=== PATIENT | female | born 1965 | race Caucasian/White ===

== ENCOUNTER → 2018-05-01 12:56 | Outpatient (CLI) | payer OTHER, SELFPAY | PROVIDERS: PCP Internal Medicine; Visit Provider Student in an Organized Health Care Education/Training Program | DX: Z01.818 Encounter for other preprocedural examination (principal) ==

== ENCOUNTER 2018-05-09 06:25 | Day surgery (SDC) | payer OTHER, SELFPAY ==
[2018-05-01 13:06] VITALS: BP 112/78; PULSE 78; RESP 17; TEMP 36.6; O2SAT 98
[2018-05-08 08:41] VITALS: BP 112/78; PULSE 78; RESP 17; TEMP 36.6; O2SAT 98
[2018-05-09 06:31] VITALS: BP 122/80; PULSE 85; RESP 16; TEMP 36.1; O2SAT 97
[2018-05-09] MEDS: Lactated Ringers 1,000 ML 80 ML IV (06:50)
--- NOTE | 2018-05-09 07:05 | DI.RAD_ITS ---
SYMPTOM/DIAGNOSIS: ANKLE PAIN C-ARM RIGHT ANKLE: Fluoroscopy Time: 30 seconds Comparison is made with 02/20/18. Hard copy image now shows a metallic anchor in the medial aspect of the navicular. Please see procedure note for details.
--- NOTE | 2018-05-09 07:24 | W.PM.DSUDISC ---
Discharge Plan Discharge Details Reason For Visit: (R) PAINFUL LEG TENDON Attending Provider: Lan Solares Primary Care Provider: Avery Caballero Disposition Patient Disposition: HOME Condition: Good Home Meds and New Rx's Prescriptions: New tramadol 50 mg Tablet 50 mg PO Q4H PRN PRNQty: 15 RF: 0 aspirin [Aspir-81] 81 mg tablet,delayed release (DR/EC) 81 mg PO BID Qty: 80 RF: 0 acetaminophen 500 mg tablet 1,000 mg PO Q8H PRN PRN (Reason: pain) Qty: 100 RF: 0 enoxaparin 40 mg/0.4 mL syringe 40 mg SC DAILY Qty: 2 RF: 0 Continue fluticasone-salmeterol [Advair Diskus] 1 EACH blister with device 1 puff Inhalation BID RF: 0 vitamin B complex [B Complex] 1 EACH tablet extended release 1 ea PO DAILY RF: 0 montelukast [Singulair] 10 MG tablet 10 mg PO DAILY RF: 0 cyanocobalamin (vitamin B-12) 250 MCG tablet PO DAILY RF: 0 fluticasone [Flonase Allergy Relief] 9.9 ML spray,suspension 9.9 ml NS BID RF: 0 Wheelchair 1 unit Not Applicable DAILY Qty: 1 RF: 0 Discontinued Custom Molded AFO Qty: 1 RF: 0 No Action wheelchair 1 EACH device 1 ea Miscellaneous Qty: 1 RF: 0 Discharge Instructions Additional Instructions: Activity: You should stay in the splint for the first 2 weeks. You may remove this while you are in [place], leaving only the steri-strips in place. After the splint is removed you may place the walker boot. It should be worn when you are up and mobilizing. You may take it off when you are not moving. You may gently move the foot and ankle but no resistance or weight-bearing until your follow-up. Dressings: You should keep the splint on for the first 2 weeks. When you remove this, leave the steri-strips in place. You may get the wound wet after 2 weeks. Medications: - You should take Tylenol for baseline pain control. You may also add Ibuprofen 400mg every 8 hours as needed to assist in pain control. - You have been prescribed Tramadol for breakthrough pain. - You have also been prescribed Lovenox for DVT prevention when flying. Take the morning of your flight. You should otherwise take one Baby Aspirin 81mg twice a day for blood clot prevention. 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
[2018-05-09] MEDS: Bupivacaine 0.25% Pres-Free 30 ML VIAL (08:56)
[2018-05-09] MEDS: Bupivacaine LIPOSOME/PF 133 MG/10 ML VIAL IJ (08:57)
[2018-05-09 09:45] VITALS: BP 133/79; PULSE 82; RESP 16; TEMP 36.4; O2SAT 98
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
== END 2018-05-09 10:45 | disposition home or self-care (01) ==
PROVIDERS: PCP Internal Medicine; Visit Provider Student in an Organized Health Care Education/Training Program
PROC: (CPT 28238; principal; 2018-05-09 07:30)
DX: Q74.2 Other congenital malformations of lower limb(s), including pelvic girdle (principal); M79.4 Hypertrophy of (infrapatellar) fat pad; M76.821 Posterior tibial tendinitis, right leg
CPT/HCPCS: 28238; 76000; C1713; 73600; J0131; J0690; J1100; J2405; L4361

== ENCOUNTER 2018-06-28 07:39 | Outpatient (CLI) | payer OTHER, SELFPAY ==
[2018-06-28 08:34] LABS: Cholesterol 198 mg/dL (50-200); HDL Cholesterol 72 mg/dL (40-60); LDL CHOLESTEROL 109 mg/dL (<100); Triglyceride 102 mg/dL (30-150)
[2018-07-01 12:18] LABS: Hepatitis C Ab w Rflx HCV PCR Negative (NEGAT)
== END 2018-06-28 07:59 ==
PROVIDERS: PCP Internal Medicine; Visit Provider Internal Medicine
DX: Z11.59 Encounter for screening for other viral diseases (principal); E66.9 Obesity, unspecified
CPT/HCPCS: 36415; 80061; 83721; 86803

== ENCOUNTER 2018-08-02 09:16 | Outpatient (CLI) | payer OTHER, SELFPAY ==
[2018-08-02 09:55] LABS: HCT 41.8 % (36.0-46.0); HGB 13.7 g/dL (12.0-15.5); Mean Corp. HGB Concentration 32.8 g/dL (32.0-36.0); Mean Corpuscular Hemoglobin 28.7 pg (27.0-33.0); Mean Corpuscular Volume 87.4 fL (80-95); Platelet Count 188 x1000/uL (130-400); RBC 4.78 m/cumm (4.00-5.20); RBC Distribution Width 13.9 % (11.7-14.6); White Blood Cell Count 5.49 k/cumm (4.4-10.8)
[2018-08-02 11:09] LABS: Anion Gap 6.8 mmol/L (3-11); BUN 16 mg/dL (7-18); CO2 27.2 mmol/L (21.0-32.0); CREATININE 0.64 mg/dL (0.55-1.02); Calcium 9.1 mg/dL (8.5-10.1); Chloride 105 mmol/L (98-107); Glucose 90 mg/dL (70-100); Potassium 4.2 mmol/L (3.5-5.1); Sodium 139 mmol/L (136-145)
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
== END 2018-08-02 09:36 ==
PROVIDERS: PCP Internal Medicine; Visit Provider Student in an Organized Health Care Education/Training Program
DX: M25.562 Pain in left knee (principal); M17.12 Unilateral primary osteoarthritis, left knee; Z01.818 Encounter for other preprocedural examination
CPT/HCPCS: 36415; 80048; 85027; NC

== ENCOUNTER 2018-08-02 10:26 | Outpatient (CLI) | payer OTHER, SELFPAY ==
--- NOTE | 2018-08-02 10:17 | DI.RAD_ITS ---
SYMPTOM/DIAGNOSIS: DJD LT KNEE BILATERAL LOWER EXTREMITIES: AP views of the lower extremities were obtained for leg length determination. Note is made of degenerative change involving the medial tibiofemoral joint on the left.
== END 2018-08-02 10:46 ==
PROVIDERS: PCP Internal Medicine; Visit Provider Physician Assistant
DX: M17.12 Unilateral primary osteoarthritis, left knee (principal)
CPT/HCPCS: 77073

== ENCOUNTER 2018-08-08 05:58 | Inpatient (IN) | payer OTHER, SELFPAY ==
[2018-08-08] VITALS (14 sets, daily range): BP systolic 96–155; BP diastolic 62–80; PULSE 66–87; RESP 12–20; TEMP 35.8–37.6; O2SAT 96–100
[2018-08-08] MEDS: Lactated Ringers 1,000 ML 80 ML IV ×4 (06:20→23:30)
[2018-08-08] MEDS: Celecoxib 200 MG CAP 400 MG PO (06:34)
[2018-08-08] MEDS: Gabapentin 300 MG CAP PO ×2 (06:34→21:27)
[2018-08-08] MEDS: Acetaminophen 500 MG TAB 1000 MG PO ×3 (06:34→20:32)
[2018-08-08] MEDS: Bupivacaine 0.5% Pres-Free 30 ML VIAL (07:20)
[2018-08-08] MEDS: Bupivacaine LIPOSOME/PF 133 MG/10 ML VIAL IJ ×2 (07:20→09:11)
[2018-08-08] MEDS: Bupivacaine 0.25% Pres-Free 30 ML VIAL (09:11)
[2018-08-08] MEDS: Ketorolac 30 MG/ML VIAL (09:11)
[2018-08-08] MEDS: Normal Saline 20 ML VIAL (09:11)
--- NOTE | 2018-08-08 09:52 | ROE_ITS ---
Date of service: 08/08/18 Time of Service: 09:49 Operative Note DATE OF PROCEDURE: 08/08/18 PRE-OP DIAGNOSIS: Left knee osteoarthritis POST-OP DIAGNOSIS: same PROCEDURE: Left Total Knee Replacement SURGEON: Lan Solares BUSINESS SERVICES SALES AGENT: Akua Valle ANESTHESIA: regional and spinal ESTIMATED BLOOD LOSS: 500 PATHOLOGY: none sent TOURNIQUET TIME: 32 COMPLICATIONS: None Patient was transported to: PACU Patient's condition: stable Implants: 1. Depuy Attune Posterior Stabilized Femoral Component, Size 4 narrow 2. Depuy Attune Fixed Platform Tibial Component, Size 2 3. Depuy Attune 4 x 6 mm fixed, Stabilized Poly 4. Depuy Attune Patellar Component, Size 32 mm Indications: I have seen Faith in clinic for symptoms of left knee arthritis, confirmed with radiographic findings. Faith has exhausted nonoperative methods and was having significant limitations in daily function and desired better function and less pain. I discussed the technical details of a knee replacement. I explained the risks of the procedure to include, but not limited to, bleeding, infection, pain, stiffness, fracture, damage to nerves and vessels, damage to muscles and tendons, loosening, need for repeat procedure , blood clot and cardiopulmonary demise. Despite these risks, Faith elected to proceed. Findings: There was significant signs of arthritis primarily involving the medial compartment of the knee, specifically the tibia. There are also focal arthritic changes along the median ridge of the patella. Procedure Description: Faith was greeted in the preoperative holding area where the correct side was identified and marked. The consent was reviewed with the patient and signed. The history and physical was updated. All questions were answered. Preoperative mediacations were administered: Acetaminophen 1000mg, Celebrex 400mg, Gabapentin 300mg, and Oxycontin 10mg. An adductor canal block was then administered by the anesthesia team in the PACU. Faith was taken back to the operating room. A spinal anesthestic was then administered. The patient was placed into the supine position on the operating room table. A nonsterile tourniquet was placed high onto the leg but only used for cementing. Posts were placed for positioning during the procedure. All bony prominences were well padded. Prophylactic antibiotics in the form of cefazolin were administered. 1g of Tranxemic Acid was given intravenously within 30 minutes of incision. The left leg was then prepped with Chloraprep and draped in a standard fashion with impervious stockinette and extremity drape with Iodine impregnated skin protection. A timeout to confirm correct identity, side and site, procedure, allergies, anesthesia, and medical concerns was performed. With the knee in some flexion, a midline incision was made overlying the knee. Full thickness skin flaps were raised once the extensor mechanism was encountered. These were raised medially and laterally. Any bleeding was controlled with electrocautery. Once the extensor mechanism was fully exposed, a medial parapatellar arthrotomy was performed in a flexed position. All bleeding from the arthrotomy and the geniculate arteries was coagulated. A medial subperiosteal peel was performed with electrocautery to the midcoronal plane. The fat pad was removed while keeping the patellar tendon protected. The anterior distal femur synovium was removed for later visualization. The ACL and PCL were resected and the anterior horn of the lateral meniscus was transected. The knee was then flexed with the patella everted. Large osteophytes from the tibia were removed. Large osteophytes from the femur were removed. Using a step drill, and based on preoperative templating, the femoral canal was entered. This was done with a step drill without any difficulty. The intramedullary distal femoral cut guide was inserted, set to a 5 degree valgus cut and 9mm cut thickness. The distal femoral cut guide was then held in position and pinned. With the soft tissues protected, the distal cut was performed. This was passed over a few times to ensure a planar cut. I then turned attention to the tibia. The extramedullary guide was placed onto the leg. The distal aspect was slid medial to adjust for position of center of ankle and stay in line with shaft of the tibia. Approximately 3-5 degrees of posterior slope was kept in the proximal cutting guide. The center of the guide was aligned with the PCL. The stylus was used to assess cut thickness. The medial side, most involved side, was set for a 4mm cut. This was then held in position and pinned into place with 2 additional pins and a cross pin for stability. The medial and lateral collateral ligaments were protected and the cut was performed. With this completed, it was assessed and noted to be of appropriate dimensions. The guide was removed. A spacer block was inserted and the knee was brought into extension. The 6mm spacer block provided full extension, without hyperextension and with stability of both the medial and lateral collateral ligaments was assessed. The pins from the femur and the tibia were then removed. The distal femur was then sized. The anterior stylus was placed onto the lateral ridge of the anterior femur. This indicated a size 4 narrow femur. The external rotation of the guide was adjusted to 5 degrees to match the epicondylar axis, perpendicular to Gray?s line. The 4-in-1 cutting guide was the placed. The posterior medial femur cut was evaluated and appeared of good thickness. The spacer block was inserted underneath the cutting guide and stability was confirmed in 90 degrees of flexion. An jennifer wing was used to confirm appropriate position of the anterior cut to avoid notching. This cutting guide was ensured to be flush on the cut surface and then pinned into place with headed pins. While protecting the soft tissues, quad tendon, and collateral ligaments, the anterior and posterior cuts were performed with a saw. The central two pins were removed and the posterior and anterior chamfers were cut next. The notch-cutting guide was placed. This was pinned to lateralize the femoral component as much as possible while keeping it flush on the cut surface. This was then pinned into position. A reciprocating saw was used to make the notch cut. A rasp smoothed the cut surfaces. A trial posterior stabilized femoral component was then inserted, impacted down to the cut surfaces, and the lug holes were drilled. A provisional trial tibial component was placed and the knee was brought through range of motion. There was noted to be excellent extension and flexion. There was no significant instability. The patella was tracking without thumbs. The tibial cut surface was fully exposed. The medial and lateral menisci were removed. The tibia was then sized as a 2. The tibia had been previously marked during trialing to correspond to the center of the tibial component to help with rotation. The trial was aligned to this akua, approximately rotated to the medial 1/3rd of the tibial tubercle. The trial was pinned into place. The tibia was prepared with a reamer and a keel punch. The knee was then brought into extension and the patella was measured as 24 mm. Using the patellar clamp and cut guide, this was resected to a flat surface with at least 13mm of thickness remaining. The size 32 mm patella fit the best. This was oriented and then clamped into position. The lugs were drilled. The trial components were removed. The final components, except for the polyethylene were opened on the back table. The periosteal and capsular tissues , especially posteriorly, around the knee were then systematically injected with a periarticular cocktail consisting of 50cc 0.25% Marcaine, 30mg Ketorolac , 20cc of Exparal and 50cc of injectable saline. The tourniquet was then inflated to 275mmHg. The knee was thoroughly irrigated with a pulse lavage and dried. On the back table, with the implants opened, the cement was mixed. 2 batches of antibiotic laden cement were prepared with vacuum assistance. After the cement was ready a small amount was placed on to the back side of the tibial component at the keel. A small amount was placed onto the posterior flange of the femur. Cement was manual pressurized and impregnated into the cut surface of the tibia. The tibial component was then inserted into the cut surface and impacted into position. Excess cement was removed and the component was reimpacted. Again, excess cement was removed and our attention was then turned to the femur. The femoral cut surface was once again dried and cement was manually impacted into the cut surface. The femoral component was lined with the lug holes and impacted. Excess cement was removed. It was ensured to be down against the cut surface. The trial polyethylene was then inserted and the leg was brought out into full extension for the duration of the cement curing process, approximately 15min. Cement was lastly manually impacted into the cut surface of the patella and the patellar button was clamped into position and held. During this process attention was turned to the gutters of the knee and for all interfaces for any excess cement. After the cement had finally cured, approximately 15min, the clamp was removed from the patella and the knee was taken through range of motion. A size 6mm polyethylene component provided the best range of motion and stability with less than 2mm gapping with medial and lateral stress and full extension without significant hyperextension. The patella was tracking with a no-thumbs technique. The trial poly was removed and once again the knee was checked for any loose, excess, or errant cement. The poly component was then inserted and impacted into position after cleaning and drying the tibial tray. The capsule was then reapproximated with a No. 1 Vicryl at multiple locations. The capsule was finally closed with a No. 2 Stratafix, barbed suture. The tourniquet was then released and the arthrotomy appeared watertight without significant bleeding. The second dosing of 1g TXA was started. Deep tissues were then reapproximated with 0 Vicryl and 2-0 Vicryl. The skin was closed with a running 3-0 Monocryl in a subcuticular fashion. This was reinforced with skin glue. A Mepilex silver dressing was applied along with a foot-to- thigh REBECCA wrap. A CryoCuff was applied. Faith was transferred to the hospital bed without difficulty an suffering no apparent complication. Faith has a good prognosis. Physical therapy will start today and without restrictions, weight-bearing as tolerated. Aspirin 81mg BID will be used for DVT prophylaxis.
[2018-08-08] MEDS: Normal Saline Flush 10 ML SYR IV ×2 (12:08→17:17)
--- NOTE | 2018-08-08 13:40 | PT.INIE ---
Date of service: 08/08/18 Time of Service: 13:33 PT Notes Inpatient Physical Therapy Evaluation Date: 08/08/2018 Referring Doctor: Lan Solares PT Orders: PT CONSULT: S/P L TKA Precautions: WBAT LLE Patient Profile/Admitting Diagnosis: Patient is a 53-year-old female s/p left total knee arthroplasty by Dr. Solares 08/08/2018 PMHX: Asthma, arthritis left knee, navicular excision right foot, rotator cuff tendinitis, biceps tendinitis on the left, benign positional vertigo, tonsillectomy, adenoidectomy, hiatal hernia repair, gastric stapling, bilateral breast reduction, abdominal hysterectomy Social History/Home Situation: Lives with in house ramp to enter no stairs. Baseline mobility independent gait with no device independent with ADLs. Has been using single leg scooter in the last 18 months due to navicular excision right foot, has cane and FWW at home as needed for mobility. Equipment Owned/DME: cane, FWW, wheelchair, single leg scooter Subjective: Patient lying in bed slightly drowsy but agreeable to PT consult in room visiting. Patient reports soreness in left quadricep with use of left lower extremity, using CryoCuff on left knee. Objective: General Observation: IV left upper extremity, [place], Curt wrap left leg, CryoCuff left knee Mental Status: A and O x3 Pain: complains of pain left quadricep with lifting leg into and out of bed, nursing providing pain medication, CryoCuff on left knee Bed Mobility/Transfers: Supine to sit: HOB 30 degrees independent Sit to stand: SBA with FWW Stand to sit: SBA Sit to supine: HOB flat independent, soreness left quadricep with lifting left lower extremity into bed Gait: CGA with FWW WBAT LLE 15 feet x2, slow step to gait pattern with instruction in step sequencing and use of FWW. Patient returned to bed after gait training completed, nursing to mobilize again this evening at dinner. Therex: Patient has issued home exercise program, initiated ankle pumps quad sets and glutes sets x20 reps, instructed to perform every 2 hours. Balance: Static Sitting: Normal Dynamic Sitting: Normal Static Standing: Fair Dynamic Standing: Fair Special Tests: Mobility Limitations Standardized Measure [facility] AM-PAC 6 clicks Basic Mobility Inpatient Short Form: Raw Score: 18 standardized Score: 43.63 CMS Score: 46.58% CMS Modifier: CK Informed Consent/Education: Patient instructed in purpose of PT consult and plan of care. Assessment: Patient is a 53-year-old female s/p left total knee arthroplasty by Dr. Solares 08/08/2018 in setting of asthma, arthritis left knee, navicular excision right foot, rotator cuff tendinitis, biceps tendinitis on the left. Patient presents with clinical signs and symptoms consistent with postop TKA, as demonstrated by the following impairment level findings: Weakness and pain left quadriceps postoperatively with lifting leg into and out of bed, decreased strength with standing transfers and gait mobility requiring use of FWW for stability postoperatively, decreased static and dynamic standing standing balance due to left quadricep weakness. Patient was able to perform tandem transfers and mobilized with FWW in room this afternoon expressing that she wants to return to home tomorrow, has all DME, has outpatient PT appointment set up for next week. Nursing will mobilize again this evening. Impairments are contributing to the following functional limitations: AMPAC score CMS Score: 46.58% Patient is assessed as a Low 51488 complexity based on the following: History: See above Examination: See above Presentation: Evolving Decision Making: AMPAC score CMS Score: 46.58% Goals: Goals X1 week 1. Supine-Sit: Independent 2. Sit-Supine: Independent 3. Sit-Stand: Supervision with FWW 4. Stand-Sit: Supervision 5. Bed-Chair: Supervision with FWW 6. Chair-Bed: Supervision with FWW 7. Gait: Supervision with FWW 60 feet x2, WBAT LLE 9. Independent with home exercise program for TKA Plan of Care/Treatment Plan: 1-2x/day, 7 days/week x 1 week. Plan of care has been reviewed with the COATING SUPERVISOR providing the service under Physical Therapy direction. Initiate Physical Therapy intervention for strengthening, bed mobility, transfers, gait, stairs, balance training, use of assistive device. DISCHARGE RECOMMENDATIONS: Home with , has all DME, patient has follow-up appointment at outpatient physical therapy [facility] next week TREATMENT CODE/TIME: 25 minutes IE 1332 G Codes in the area mobility of walking and moving around: current status [id number]; projected status GP [id number]. Discharge status (if discharging) GP [id number] CK based on AMPAC score CMS Score: 46.58% Janett Mabry PT Disclaimer: This note was created using [employer] voice recognition software. It was reviewed for major content. However, there may be multiple small discrepancies and errors due to the voice recognition aspects of the software.
--- NOTE | 2018-08-08 13:54 | IN_ITS ---
Date of service: 08/08/18 Time of Service: 13:33 PT Notes Inpatient Physical Therapy Evaluation Date: 08/08/2018 Referring Doctor: Lan Solares PT Orders: PT CONSULT: S/P L TKA Precautions: WBAT LLE Patient Profile/Admitting Diagnosis: Patient is a 53-year-old female s/p left total knee arthroplasty by Dr. Solares 08/08/2018 PMHX: Asthma, arthritis left knee, navicular excision right foot, rotator cuff tendinitis, biceps tendinitis on the left, benign positional vertigo, tonsillectomy, adenoidectomy, hiatal hernia repair, gastric stapling, bilateral breast reduction, abdominal hysterectomy Social History/Home Situation: Lives with in house ramp to enter no stairs. Baseline mobility independent gait with no device independent with ADLs. Has been using single leg scooter in the last 18 months due to navicular excision right foot, has cane and FWW at home as needed for mobility. Equipment Owned/DME: cane, FWW, wheelchair, single leg scooter Subjective: Patient lying in bed slightly drowsy but agreeable to PT consult in room visiting. Patient reports soreness in left quadricep with use of left lower extremity, using CryoCuff on left knee. Objective: General Observation: IV left upper extremity, [place], Curt wrap left leg, CryoCuff left knee Mental Status: A and O x3 Pain: complains of pain left quadricep with lifting leg into and out of bed, nursing providing pain medication, CryoCuff on left knee Bed Mobility/Transfers: Supine to sit: HOB 30 degrees independent Sit to stand: SBA with FWW Stand to sit: SBA Sit to supine: HOB flat independent, soreness left quadricep with lifting left lower extremity into bed Gait: CGA with FWW WBAT LLE 15 feet x2, slow step to gait pattern with instruction in step sequencing and use of FWW. Patient returned to bed after gait training completed, nursing to mobilize again this evening at dinner. Therex: Patient has issued home exercise program, initiated ankle pumps quad sets and glutes sets x20 reps, instructed to perform every 2 hours. Balance: Static Sitting: Normal Dynamic Sitting: Normal Static Standing: Fair Dynamic Standing: Fair Special Tests: Mobility Limitations Standardized Measure [facility] AM-PAC 6 clicks Basic Mobility Inpatient Short Form: Raw Score: 18 standardized Score: 43.63 CMS Score: 46.58% CMS Modifier: CK Informed Consent/Education: Patient instructed in purpose of PT consult and plan of care. Assessment: Patient is a 53-year-old female s/p left total knee arthroplasty by Dr. Solares 08/08/2018 in setting of asthma, arthritis left knee, navicular excision right foot, rotator cuff tendinitis, biceps tendinitis on the left. Patient presents with clinical signs and symptoms consistent with postop TKA, as demonstrated by the following impairment level findings: Weakness and pain left quadriceps postoperatively with lifting leg into and out of bed, decreased strength with standing transfers and gait mobility requiring use of FWW for stability postoperatively, decreased static and dynamic standing standing balance due to left quadricep weakness. Patient was able to perform tandem transfers and mobilized with FWW in room this afternoon expressing that she wants to return to home tomorrow, has all DME , has outpatient PT appointment set up for next week. Nursing will mobilize again this evening. Impairments are contributing to the following functional limitations: AMPAC score CMS Score: 46.58% Patient is assessed as a Low 48124 complexity based on the following: History: See above Examination: See above Presentation: Evolving Decision Making: AMPAC score CMS Score: 46.58% Goals: Goals X1 week 1. Supine-Sit: Independent 2. Sit-Supine: Independent 3. Sit-Stand: Supervision with FWW 4. Stand-Sit: Supervision 5. Bed-Chair: Supervision with FWW 6. Chair-Bed: Supervision with FWW 7. Gait: Supervision with FWW 60 feet x2, WBAT LLE 9. Independent with home exercise program for TKA Plan of Care/Treatment Plan: 1-2x/day, 7 days/week x 1 week. Plan of care has been reviewed with the FASTENER SEWING MACHINE OPERATOR providing the service under Physical Therapy direction. Initiate Physical Therapy intervention for strengthening, bed mobility, transfers, gait, stairs, balance training, use of assistive device. DISCHARGE RECOMMENDATIONS: Home with , has all DME, patient has follow-up appointment at outpatient physical therapy [facility] next week TREATMENT CODE/TIME: 25 minutes IE 1332 G Codes in the area mobility of walking and moving around: current status [id number] -CK; projected status GP [id number]. Discharge status (if discharging) GP [id number] CK based on AMPAC score CMS Score: 46.58% Janett Mabry PT Disclaimer: This note was created using [employer] voice recognition software. It was reviewed for major content. However, there may be multiple small discrepancies and errors due to the voice recognition aspects of the software.
[2018-08-08] MEDS: Dexamethasone 4 MG TAB PO (14:58)
[2018-08-08 16:30] LABS: HCT 34.9 % (36.0-46.0); HGB 11.3 g/dL (12.0-15.5)
[2018-08-08] MEDS: Ketorolac 15 MG/ML VIAL IVP ×2 (17:16→23:30)
[2018-08-08] MEDS: Aspirin E.C. 81 MG TABEC PO (20:32)
[2018-08-08] MEDS: Montelukast 10 MG TAB PO (21:26)
[2018-08-08] MEDS: Fluticasone NASAL SPRAY 16 GM BTL NS (21:27)
[2018-08-08] MEDS: Budesonide/Formoterol 160/4.5 6 GM 60 PUFF INH IH (21:28)
[2018-08-09] MEDS: traMADol 50 MG TAB PO ×3 (00:12→13:32)
[2018-08-09 00:20] VITALS: BP 93/62; PULSE 80; RESP 18; TEMP 36.8; O2SAT 92
[2018-08-09 04:28] VITALS: BP 100/69; PULSE 77; RESP 18; TEMP 36.5; O2SAT 97
[2018-08-09 07:13] LABS: HCT 32.5 % (36.0-46.0); HGB 10.5 g/dL (12.0-15.5); Mean Corp. HGB Concentration 32.3 g/dL (32.0-36.0); Mean Corpuscular Hemoglobin 28.5 pg (27.0-33.0); Mean Corpuscular Volume 88.1 fL (80-95); Mean Platelet Volume 11.6 fL (8.0-11.0); Platelet Count 167 x1000/uL (130-400); RBC 3.69 m/cumm (4.00-5.20); RBC Distribution Width 13.5 % (11.7-14.6); White Blood Cell Count 9.16 k/cumm (4.4-10.8)
[2018-08-09 07:25] LABS: Anion Gap 10.4 mmol/L (3-11); BUN 8 mg/dL (7-18); CO2 25.6 mmol/L (21.0-32.0); CREATININE 0.57 mg/dL (0.55-1.02); Calcium 8.6 mg/dL (8.5-10.1); Chloride 106 mmol/L (98-107); Glucose 119 mg/dL (70-100); Potassium 3.8 mmol/L (3.5-5.1); Sodium 142 mmol/L (136-145)
--- NOTE | 2018-08-09 07:49 | PT.INTREAT ---
Date of service: 08/09/18 Time of Service: 07:50 PT Notes Inpatient Physical Therapy Discharge Summary Date: 08/09/18 Dates of Service: 08/08/18-08/09/18 SUBJECTIVE: Pt lying in bed, states she is feeling good, got up several times last night to use the bathroom. Pain is minimal. Pt with pillow under left knee, pt instructed to avoid sleeping in knee flexion and to place pillow under left calf instead to allow for extension of knee in bed. Pt in agreement. OBJECTIVE: General observation: IV L UE, debbie wrap L LE, cryocuff L LE Bed Mobility/Transfers: Supine to sit:independent Sit to stand: independent with FWW Stand to sit: independent Bed-chair: independent with FWW Gait: independent with FWW, WBAT LLE, 150ft step through gait pattern, pt left up in chair for breakfast Therex: Patient has issued home exercise program, performing ankle pumps quad sets and glutes sets x20 reps, instructed to perform every 2 hours. Balance: Static Sitting: Normal Dynamic Sitting: Normal Static Standing: good Dynamic Standing: Fair Assessment: Patient is a 53-year-old female s/p left total knee arthroplasty by Dr. Solares 08/08/2018 in setting of asthma, arthritis left knee, navicular excision right foot, rotator cuff tendinitis, biceps tendinitis on the left. Patient was seen for 2 PT visits. Progressed from SBA standing transfers to independent, from CGA gait with FWW 15ftx2 to independent gait with FWW 150ft. Static Standing balance improved from fair to good. Pt is at functional level to return to home setting, discharge to home planned today. Goals: Goals X1 week 1. Supine-Sit: Independent 2. Sit-Supine: Independent 3. Sit-Stand: Supervision with FWW 4. Stand-Sit: Supervision 5. Bed-Chair: Supervision with FWW 6. Chair-Bed: Supervision with FWW 7. Gait: Supervision with FWW 60 feet x2, WBAT LLE 9. Independent with home exercise program for TKA Pt met goals # 1-9. DISCHARGE RECOMMENDATIONS: Home with , has all DME, patient has follow-up appointment at outpatient physical therapy [facility] next week TREATMENT CODE/TIME: 24min 7:45 TAx1 TPx1 G Codes in the area mobility of walking and moving around: projected status GP [id number]. Discharge status (if discharging) GP G8980 CK Janett Mabry PT
--- NOTE | 2018-08-09 07:54 | PTTR_ITS ---
Date of service: 08/09/18 Time of Service: 07:50 PT Notes Inpatient Physical Therapy Discharge Summary Date: 08/09/18 Dates of Service: 08/08/18-08/09/18 SUBJECTIVE: Pt lying in bed, states she is feeling good, got up several times last night to use the bathroom. Pain is minimal. Pt with pillow under left knee , pt instructed to avoid sleeping in knee flexion and to place pillow under left calf instead to allow for extension of knee in bed. Pt in agreement. OBJECTIVE: General observation: IV L UE, debbie wrap L LE, cryocuff L LE Bed Mobility/Transfers: Supine to sit:independent Sit to stand: independent with FWW Stand to sit: independent Bed-chair: independent with FWW Gait: independent with FWW, WBAT LLE, 150ft step through gait pattern, pt left up in chair for breakfast Therex: Patient has issued home exercise program, performing ankle pumps quad sets and glutes sets x20 reps, instructed to perform every 2 hours. Balance: Static Sitting: Normal Dynamic Sitting: Normal Static Standing: good Dynamic Standing: Fair Assessment: Patient is a 53-year-old female s/p left total knee arthroplasty by Dr. Solares 08/08/2018 in setting of asthma, arthritis left knee, navicular excision right foot, rotator cuff tendinitis, biceps tendinitis on the left. Patient was seen for 2 PT visits. Progressed from SBA standing transfers to independent, from CGA gait with FWW 15ftx2 to independent gait with FWW 150ft. Static Standing balance improved from fair to good. Pt is at functional level to return to home setting, discharge to home planned today. Goals: Goals X1 week 1. Supine-Sit: Independent 2. Sit-Supine: Independent 3. Sit-Stand: Supervision with FWW 4. Stand-Sit: Supervision 5. Bed-Chair: Supervision with FWW 6. Chair-Bed: Supervision with FWW 7. Gait: Supervision with FWW 60 feet x2, WBAT LLE 9. Independent with home exercise program for TKA Pt met goals # 1-9. DISCHARGE RECOMMENDATIONS: Home with , has all DME, patient has follow-up appointment at outpatient physical therapy [facility] next week TREATMENT CODE/TIME: 24min 7:45 TAx1 TPx1 G Codes in the area mobility of walking and moving around: projected status GP [id number]. Discharge status (if discharging) GP [id number] CK Janett Mabry PT
--- NOTE | 2018-08-09 08:14 | DSE_ITS ---
Date of service: 08/09/18 Time of Service: 08:12 DS: Diagnosis Discharge Diagnosis (1) Arthritis of left knee: Status: Chronic Discharge Plan Disposition Patient Disposition: HOME Condition: Good Discharge Details Reason For Visit: (L) KNEE DJD Admit Date/Time: 08/08/18 05:58 Admit Provider: Lan Solares Attending Provider: Lan Solares Primary Care Provider: Avery Caballero Hospital Course Hospital Course: Patient was admitted to the medical/surgical floor following the procedure. It was tolerated well without any notable medical, surgical, or anesthetic complications. Mobilization began postoperatively. The alves catheter was removed and voiding spontaneously. Vitals were stable. Physical therapy worked with the patient and was cleared for discharge home. No acute medical issues. Home Meds and New Rx's Prescriptions: New polyethylene glycol 3350 17 gram Powder In Packet 17 g PO BID PRN PRN (Reason: Constipation) Qty: 0 RF: 0 aspirin 81 mg Tablet,Delayed Release (Dr/Ec) 81 mg PO BID Qty: 80 RF: 0 pantoprazole 40 mg Tablet,Delayed Release (Dr/Ec) 40 mg PO DAILY@0730 Qty: 30 RF: 0 docusate sodium [Colace] 100 mg Capsule 100 mg PO BID PRN PRN (Reason: Constipation) Qty: 0 RF: 0 Continue fluticasone-salmeterol [Advair Diskus] 1 EACH blister with device 1 puff Inhalation BID RF: 0 vitamin B complex [B Complex] 1 EACH tablet extended release 1 ea PO DAILY RF: 0 montelukast [Singulair] 10 MG tablet 10 mg PO HS RF: 0 cyanocobalamin (vitamin B-12) 250 MCG tablet 1 tab PO DAILY RF: 0 wheelchair 1 EACH device 1 ea Miscellaneous Qty: 1 RF: 0 fluticasone [Flonase Allergy Relief] 9.9 ML spray,suspension 9.9 ml NS BID RF: 0 Wheelchair 1 unit Not Applicable DAILY Qty: 1 RF: 0 tramadol 50 mg tablet 50 mg PO Q6H PRN (Reason: pain) Qty: 10 RF: 0 acetaminophen 500 mg tablet 1,000 mg PO Q8H PRN PRN (Reason: pain) Qty: 100 RF: 0 Discharge Instructions Additional Instructions: Dr. Solares?s Total Knee Discharge Instructions Activity: The most important activity is to walk. You should try to take short walks a few times a day. It is important that when resting you work on keeping the knee straight. Avoid putting a pillow behind the knee as this will encourage flexion. Work on range of motion exercises as provided by Physical Therapy. - Start outpatient physical therapy within 2 weeks. - You should wear the FATUMA hose on both legs for 4 weeks. Dressing: Keep the surgical dressing in place for at least one week. After the first week it may be removed and replace with light gauze and tape or nothing. It may get wet after 3 days but avoid soaking the dressing. If it gets wet, just lightly pat dry. Medications: - You should take Tylenol as your primary pain control medications - You have been prescribed a stronger pain medication (Tramadol) for breakthrough pain, take as needed as prescribed. - You will be taking Aspirin 81mg twice a day for DVT prevention unless instructed otherwise. - If you have constipation you should take Colace or Miralax (both over-the- counter). It takes most people 3-4 days to have a bowel movement. Follow-up: 2 weeks Activity:: Activity as Tolerated Equipment/Supplies:: Walker Diet:: As Tolerated Discharge Orders Discharge Orders: Discharge Order (Routine); Ordered 08/09/18 Ordered By: Lan Solares DS: Data Vitals/I&O Vitals and I&O: Vital Signs Temperature 36.5 C 08/09/18 04:28 Temperature Source Tympanic 08/09/18 04:28 Pulse 77 08/09/18 04:28 Pulse Rhythm Regular 08/08/18 22:28 Respiratory Rate 18 08/09/18 04:28 Respiratory Effort Non-Labored 08/08/18 22:28 Respiratory Depth Normal 08/08/18 22:28 Respiratory Pattern Normal 08/08/18 22:28 Blood Pressure 100/69 08/09/18 04:28 Pulse Oximetry 97 08/09/18 04:28 Respiratory End-tidal CO2 35 08/08/18 11:15 Oxygen Delivery Method Room Air 08/09/18 00:20 Oxygen Flow Rate 0 08/09/18 00:20 Pain Level 1 08/09/18 06:53 Comment 08/08/18 12:32 Intake & Output 08/08/18 08/08/18 08/09/18 11:59 23:59 11:59 Intake Total 1720 / 1720 1678.666 / 1678.666 540 / 540 Output Total 1125 / 1125 1700 / 1700 Balance 595 / 595 -21.334 / -21.334 540 / 540 Weight 86.5 kg Intake: IV 1720 / 1720 1198.666 / 1198.666 100 / 100 Oral 480 / 480 440 / 440 Output: Urine 625 / 625 1700 / 1700 Estimated Blood Loss 500 / 500 Other: Urine Color Yellow Yellow Urine Appearance Clear Clear Comment PACU. Emesis Description None Voiding Methods Toilet Labs on day of discharge: Labs from last 24 hours 08/09/18 08/09/18 08/08/18 06:27 06:27 16:10 WBC 9.16 RBC 3.69 L Hgb 10.5 L 11.3 L Hct 32.5 L 34.9 L MCV 88.1 MCH 28.5 MCHC 32.3 RDW 13.5 Plt Count 167 MPV 11.6 H Sodium 142 Potassium 3.8 Chloride 106 Carbon Dioxide 25.6 Anion Gap 10.4 BUN 8 Creatinine 0.57 Estimated GFR/1.73 m2 >= 60.00 Glucose 119 H Calcium 8.6 PFSH Social History Smoking/Tobacco Use Status: Never
[2018-08-09] MEDS: Pantoprazole 40 MG TABCR PO (08:32)
[2018-08-09] MEDS: Acetaminophen 500 MG TAB 1000 MG PO ×2 (08:33→13:31)
[2018-08-09] MEDS: Dexamethasone 4 MG TAB PO (08:33)
[2018-08-09] MEDS: Aspirin E.C. 81 MG TABEC PO (08:33)
[2018-08-09 08:35] VITALS: BP 125/85; PULSE 77; RESP 20; TEMP 36.3; O2SAT 98
[2018-08-09] MEDS: Ketorolac 15 MG/ML VIAL IVP (08:36)
[2018-08-09] MEDS: Normal Saline Flush 10 ML SYR IV (08:37)
[2018-08-09] MEDS: Cyanocobalamin 500 MCG TAB 250 MCG PO (08:52)
[2018-08-09] MEDS: Fluticasone NASAL SPRAY 16 GM BTL NS (08:52)
--- NOTE | 2018-08-09 08:55 | INDS_ITS ---
Date of service: 08/09/18 Time of Service: 08:55 PT Notes Date: 08/09/18 Dates of Service: 08/08/18-08/09/18 SUBJECTIVE: Pt lying in bed, states she is feeling good, got up several times last night to use the bathroom. Pain is minimal. Pt with pillow under left knee , pt instructed to avoid sleeping in knee flexion and to place pillow under left calf instead to allow for extension of knee in bed. Pt in agreement. OBJECTIVE: General observation: IV L UE, debbie wrap L LE, cryocuff L LE Bed Mobility/Transfers: Supine to sit:independent Sit to stand: independent with FWW Stand to sit: independent Bed-chair: independent with FWW Gait: independent with FWW, WBAT LLE, 150ft step through gait pattern, pt left up in chair for breakfast Therex: Patient has issued home exercise program, performing ankle pumps quad sets and glutes sets x20 reps, instructed to perform every 2 hours. Balance: Static Sitting: Normal Dynamic Sitting: Normal Static Standing: good Dynamic Standing: Fair Assessment: Patient is a 53-year-old female s/p left total knee arthroplasty by Dr. Solares 08/08/2018 in setting of asthma, arthritis left knee, navicular excision right foot, rotator cuff tendinitis, biceps tendinitis on the left. Patient was seen for 2 PT visits. Progressed from SBA standing transfers to independent, from CGA gait with FWW 15ftx2 to independent gait with FWW 150ft. Static Standing balance improved from fair to good. Pt is at functional level to return to home setting, discharge to home planned today. Goals: Goals X1 week 1. Supine-Sit: Independent 2. Sit-Supine: Independent 3. Sit-Stand: Supervision with FWW 4. Stand-Sit: Supervision 5. Bed-Chair: Supervision with FWW 6. Chair-Bed: Supervision with FWW 7. Gait: Supervision with FWW 60 feet x2, WBAT LLE 9. Independent with home exercise program for TKA Pt met goals # 1-9. DISCHARGE RECOMMENDATIONS: Home with , has all DME, patient has follow-up appointment at outpatient physical therapy [facility] next week G Codes in the area mobility of walking and moving around: projected status GP [id number]. Discharge status (if discharging) GP [id number] CK Janett Mabry PT
--- NOTE | 2018-08-09 13:06 | PDOC.CMIN ---
- If Service Date Differs Date of service: 08/09/18 Time of Service: 13:06 Care Management Initial Assess REASON FOR HOSPITALIZATION:: Total left knee PAST MEDICAL HISTORY/PAST SURGICAL HISTORY:: Medical: Asthma. Surgical Hx: appendectomy, abdomial hysterectomy, hiatal hernia repair, right foot surgery, gastric stapling, breast reduction. 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 She is indepedent at home with ADLS and transportation. She lives with her spouse in [place], [place] in her own home. CURRENT FUNCTIONAL STATUS:: Faith is sitting up in the chair she is alert and engaged. She has a plan to manage pain and has the equipment she needs at home. She reports that she has good support from her spouse and family and feels ready to return home. ADVANCE DIRECTIVES:: None on file at [employer]. offered advance directive forms patient will complete at a later date. Has patient been provided with information about the portal?: No Did the patient sign up for the portal?: No CODE STATUS:: Full Code INSURANCE COVERAGE / FINANCIAL ISSUES:: Health plan inc CURRENT HOME/COMMUNITY SERVICES/EQUIPMENT:: Faith will have outpatient PT with [facility]. She has a FWW, shower bench, raised toilet seat. PRIMARY CARE PHYSICIAN:: POTENTIAL DISCHARGE NEEDS:: Follow up appointment with . PATIENT/FAMILY EDUCATION NEEDS:: Discharge education and limitations and follow up plan of care. ANTICIPATED BARRIERS TO DISCHARGE:: None identified at this time. TRANSPORTATION:: Via private car with spouse at time of discharge. PLAN:: Faith will be discharged home today per tracey. She will follow up with after discharge. No addtional services needed at time of discharge. She was able to obtain her medicaitons from pharmacy.
--- NOTE | 2018-08-09 13:42 | INITIAL_ITS ---
- If Service Date Differs Date of service: 08/09/18 Time of Service: 13:06 Care Management Initial Assess REASON FOR HOSPITALIZATION:: Total left knee PAST MEDICAL HISTORY/PAST SURGICAL HISTORY:: Medical: Asthma. Surgical Hx: appendectomy, abdomial hysterectomy, hiatal hernia repair, right foot surgery, gastric stapling, breast reduction. 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 She is indepedent at home with ADLS and transportation. She lives with her spouse in [place], [place] in her own home. CURRENT FUNCTIONAL STATUS:: Faith is sitting up in the chair she is alert and engaged. She has a plan to manage pain and has the equipment she needs at home. She reports that she has good support from her spouse and family and feels ready to return home. ADVANCE DIRECTIVES:: None on file at [facility] [facility] [employer]. offered advance directive forms patient will complete at a later date. Has patient been provided with information about the portal?: No Did the patient sign up for the portal?: No CODE STATUS:: Full Code INSURANCE COVERAGE / FINANCIAL ISSUES:: Health plan inc CURRENT HOME/COMMUNITY SERVICES/EQUIPMENT:: Faith will have outpatient PT with [facility]. She has a FWW, shower bench, raised toilet seat. PRIMARY CARE PHYSICIAN:: POTENTIAL DISCHARGE NEEDS:: Follow up appointment with . PATIENT/FAMILY EDUCATION NEEDS:: Discharge education and limitations and follow up plan of care. ANTICIPATED BARRIERS TO DISCHARGE:: None identified at this time. TRANSPORTATION:: Via private car with spouse at time of discharge. PLAN:: Faith will be discharged home today per tracey. She will follow up with after discharge. No addtional services needed at time of discharge. She was able to obtain her medicaitons from pharmacy.
--- NOTE | 2018-08-09 13:46 | PDOC.CMDIS ---
- If Service Date Differs Date of service: 08/09/18 Time of Service: 13:46 LACE Index Scoring Tool - Questions: Length of Stay (in days): 2 Acuity (Admit via E.D.?): No E.D. Visits: 0 - Answers: Total Score: 2 Risk of Readmission: Low Risk Care Management Discharge Reason for Hospitalization: Total left knee Discharge Plan: Faith will be discharged home today with outpatient PT. Her spouse will transport home via private car. Faith will follow up with as scheduled. Patient/Family Education Needs: Discharge education, limitation and follow up plan of care.
== END 2018-08-09 13:36 | disposition home or self-care (01) | DRG 470 ==
LOC: PDS 05:59 → MS 11:29
PROVIDERS: Admitting Provider Student in an Organized Health Care Education/Training Program; PCP Internal Medicine; Visit Provider Student in an Organized Health Care Education/Training Program
PROC: 0SRD0J9 Replacement of Left Knee Joint with Synthetic Substitute, Cemented, Open Approach (ICD-10-PCS; CPT 27447; principal; 2018-08-08 07:30)
DX: M17.12 Unilateral primary osteoarthritis, left knee (principal); Z96.652 Presence of left artificial knee joint
CPT/HCPCS: 27447; 36415; 76942; 80048; 85027; 97110; 97161; 97530; NC; 85014; 85018; J0690; J1100; J1885; J2250; J2405; J8540

== ENCOUNTER 2018-08-23 10:40 | Outpatient (CLI) | payer OTHER, SELFPAY ==
--- NOTE | 2018-08-23 10:53 | DI.RAD_ITS ---
SYMPTOM/DIAGNOSIS: S/P LT TKA LEG LENGTH AND LEFT KNEE: Standing AP views were performed from the upper abdomen through the ankles. There is a left knee prosthesis. The hip joint spaces are well maintained. The right knee joint spaces as well as ankle joints are well maintained. The left femoral head projects approximately 4 mm. superior to the right. IMPRESSION: Left knee prosthesis and mild leg length discrepancy.
== END 2018-08-23 11:00 ==
PROVIDERS: PCP Internal Medicine; Visit Provider Student in an Organized Health Care Education/Training Program
DX: M17.12 Unilateral primary osteoarthritis, left knee (principal); Z96.652 Presence of left artificial knee joint; M21.769 Unequal limb length (acquired), unspecified tibia and fibula
CPT/HCPCS: 73560; 77073

== ENCOUNTER 2018-08-23 11:52 | Outpatient (CLI) | payer OTHER, SELFPAY ==
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
== END 2018-08-23 12:12 ==
PROVIDERS: PCP Internal Medicine; Visit Provider Student in an Organized Health Care Education/Training Program
DX: M79.662 Pain in left lower leg (principal); Z96.652 Presence of left artificial knee joint; R09.89 Other specified symptoms and signs involving the circulatory and respiratory systems
CPT/HCPCS: 93971

== ENCOUNTER 2019-02-05 06:15 | Day surgery (SDC) | payer OTHER, SELFPAY ==
[2019-02-05] VITALS (7 sets, daily range): BP systolic 127–170; BP diastolic 76–92; PULSE 58–86; RESP 13–21; TEMP 35.6–36.4; O2SAT 97–100
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
--- NOTE | 2019-02-05 06:19 | W.PM.OP ---
Date of service: 02/05/19 Time of Service: 08:22 Operative Note DATE OF PROCEDURE: 02/05/19 PRE-OP DIAGNOSIS: Ventral hernia with obstruction POST-OP DIAGNOSIS: same PROCEDURE: Ventral hernia repair with mesh SURGEON: Ashlee Oh ASSISTING SURGEON: Torri Olson TRAIN PLANNER: Shayna Cronin ANESTHESIA: MAC (ASA 2/ Ayla Juarez, DIAL EQUIPMENT ENGINEER) and regional (Bilateral rectus block by anesthesia) ESTIMATED BLOOD LOSS: 25 PATHOLOGY: none sent COMPLICATIONS: None Patient was transported to: same day Patient's condition: stable Implants: Ventrio ST Hernia Patch REF [id number] LOT [id number] Indications: Mrs. Ling is a pleasant 53 year old female who was seen in the office for a ventral hernia. On exam there is some fatty tissue obstructed in it. Risks, benefits and complications have been reviewed. Complications include but are not limited to bleeding, pain, infection, injury to underlying structures like bowel and adverse reaction to the medication. Questions were entertained and answered to their satisfaction and they wished to proceed. No guarantees were given or implied. Findings: Omentum herniated through the hernia defect Procedure Description: After informed consent was obtained the patient was taken to the operating room and placed in a supine position. Monitors and SCDs were applied and a timeout was done. The patient's name, date of , procedure type, procedure site, allergies to medications, preoperative antibiotic, and DVT prophylaxis were all reviewed. Fire risk was assessed. Next anesthesia did a bilateral rectus block under ultrasound guidance. Please see their separate dictation. Once anesthesia was done the abdomen was prepped and draped in a sterile surgical fashion. 2% Lidocaine was injected into the dermis just over the palpable hernia. An incision was made with a 10 blade over the hernia. Dissection was done with cautery through the subcutaneous tissues and down to the hernia sac. Ther hernia sac was opened and omentum was identified. Attempt was made to reduce the omentum but there was too much. The hernia defect was opened with cuatery and the omentum was then reduced into the abdominal cavity. There was some bleeding noted from the omentum and this cauterized. A finger sweep was done and there were no adhesions palpated. A 8 x 12 cm ventrio mesh was then placed into the peritoneum and attached in 4 quadrants with 2-0 Proline. Once the mesh was secured the tissues were irrigated with some normal saline. No bleeding was identified. The fascia was closed over the mesh with 0 vicryl running suture. Brent was applied to the fascia for hemostasis. The subcutaneous tissue was re-approximated with 2-0 vicryl. The dermis was re-approximated with a running 4-0 Vicryl. The skin was cleaned and dried and skin affix was applied. The patient was woken up and taken back to recovery in stable condition. There were no immediate complications. Sponge, instrument and needle counts were correct at the end of the case x2.
--- NOTE | 2019-02-05 06:23 | W.PM.DSUDISC ---
Discharge Plan Disposition Patient Disposition: HOME Condition: Good Discharge Details Reason For Visit: Ventral hernia Attending Provider: Ashlee Oh Primary Care Provider: Avery Caballero Home Meds and New Rx's Prescriptions: New acetaminophen 650 mg tablet extended release 650 mg PO Q6H PRN PRN (Reason: fever or pain) Qty: 30 RF: 0 Continued sennosides [Senna Lax] 8.6 mg tablet 8.6 mg PO BID PRNRF: 0 One Daily Multi-Vit w-Mineral 4.5 mg iron powder in packet 1 PO DAILY PRNRF: 0 fluticasone propion-salmeterol [Advair Diskus] 1 EACH blister with device 1 puff Inhalation BID RF: 0 B Complex 1 EACH tablet extended release 1 ea PO DAILY RF: 0 montelukast [Singulair] 10 MG tablet 10 mg PO HS RF: 0 cyanocobalamin (vitamin B-12) 250 MCG tablet 1 tab PO DAILY RF: 0 fluticasone propionate [Flonase Allergy Relief] 9.9 ML spray,suspension 9.9 ml NS BID RF: 0 celecoxib 100 mg capsule 100 mg PO BID Qty: 60 RF: 3 bupropion HCl [Wellbutrin SR] 150 mg Tablet Sustained-Release 12 Hr 150 mg PO HS RF: 0 acetaminophen 500 mg tablet 1,000 mg PO Q8H PRN PRN (Reason: pain) Qty: 100 RF: 0 Discharge Instructions Instructions: Open Herniorrhaphy (DC) Additional Instructions: Activity at Home after surgery: 1. Make sure you walk outside at least 4 times per day 2. You should be able to climb a flight of stairs 3. No driving while in pain or taking pain medications 4. No strenuous activity or heavy lifting for 4 weeks (open surgery) Diet, Nutrition, & wound healin. Avoid alcohol until after you are recovered from your surgery 2. Make sure to eat plenty of lean protein (meat, fish, eggs, cottage cheese, beans) 3. Eat a variety of fruits and vegetables. Eat plenty of high fiber foods to avoid constipation. 4. Drink plenty of liquids to stay hydrated and avoid constipation Pain Medications: 1. Alternate Tylenol 650 mg q6H prn 2. Take Celebrex as usual 3. If a narcotic has been prescribed take as directed only for breakthrough pain For Constipation: 1. Take Milk of Magnesia or MiraLax as needed for constipation Other: 1. You may shower daily. Do not scrub the incisions 2. Do not soak the incisions for 1 week 3. You may alternate ice and heat as needed for pain and swelling Wound Care: 1. Keep the incisions clean and dry Please call our office if you develop: 1. Fevers >101.5 2. Nausea or Vomiting 3. Worsening pain 4. Redness and thick discharge from the wounds If after hours please call the Hospital at and ask to speak to the on-call surgeon Stand Alone Forms: DSU Post op Instructions, Mariaa Mcclendon (DSU) Referrals: Ashlee Oh MD [ [facility] STAFF PHYSICIAN] - 02/21/19 9:30 am Activity:: No lifting, pulling or pushing >20 lb x 4 weeks Diet:: As Tolerated Discharge Orders Discharge Orders: Discharge Order (Routine); Ordered 02/05/19 Ordered By: Ashlee Oh DS: Diagnosis Discharge Diagnosis (1) Ventral hernia with obstruction: Status: Acute (2) S/P hernia repair: Status: Acute
--- NOTE | 2019-02-05 06:24 | ROE_ITS ---
Date of service: 02/05/19 Time of Service: 08:22 Operative Note DATE OF PROCEDURE: 02/05/19 PRE-OP DIAGNOSIS: Ventral hernia with obstruction POST-OP DIAGNOSIS: same PROCEDURE: Ventral hernia repair with mesh SURGEON: Ashlee Oh ASSISTING SURGEON: Torri Olson [employer]ATION WORKER: Shayna Cronin ANESTHESIA: MAC (ASA 2/ Ayla Juarez, AQUATIC LABORER) and regional (Bilateral rectus block by anesthesia) ESTIMATED BLOOD LOSS: 25 PATHOLOGY: none sent COMPLICATIONS: None Patient was transported to: same day Patient's condition: stable Implants: Ventrio ST Hernia Patch REF [id number] LOT [id number] Indications: Mrs. Ling is a pleasant 53 year old female who was seen in the office for a ventral hernia. On exam there is some fatty tissue obstructed in it. Risks, benefits and complications have been reviewed. Complications include but are not limited to bleeding, pain, infection, injury to underlying structures like bowel and adverse reaction to the medication. Questions were entertained and answered to their satisfaction and they wished to proceed. No guarantees were given or implied. Findings: Omentum herniated through the hernia defect Procedure Description: After informed consent was obtained the patient was taken to the operating room and placed in a supine position. Monitors and SCDs were applied and a timeout was done. The patient's name, date of , procedure type, procedure site, allergies to medications, preoperative antibiotic, and DVT prophylaxis were all reviewed. Fire risk was assessed. Next anesthesia did a bilateral rectus block under ultrasound guidance. Please see their separate dictation. Once anesthesia was done the abdomen was prepped and draped in a sterile surgical fashion. 2% Lidocaine was injected into the dermis just over the palpable hernia. An incision was made with a 10 blade over the hernia. Dissection was done with cautery through the subcutaneous tissues and down to the hernia sac. Ther hernia sac was opened and omentum was identified. Attempt was made to reduce the omentum but there was too much. The hernia defect was opened with cuatery and the omentum was then reduced into the abdominal cavity. There was some bleeding noted from the omentum and this cauterized. A finger sweep was done and there were no adhesions palpated. A 8 x 12 cm ventrio mesh was then placed into the peritoneum and attached in 4 quadrants with 2-0 Proline. Once the mesh was secured the tissues were irrigated with some normal saline. No bleeding was identified. The fascia was closed over the mesh with 0 vicryl running suture. Brent was applied to the fascia for hemostasis. The subcutaneous tissue was re-approximated with 2-0 vicryl. The dermis was re- approximated with a running 4-0 Vicryl. The skin was cleaned and dried and skin affix was applied. The patient was woken up and taken back to recovery in stable condition. There were no immediate complications. Sponge, instrument and needle counts were correct at the end of the case x2.
[2019-02-05] MEDS: Lactated Ringers 1,000 ML 80 ML IV ×3 (06:47→09:39)
[2019-02-05] MEDS: ceFAZolin 2 GM/50 ML BAG IVPB (08:08)
[2019-02-05] MEDS: Lidocaine 2% Multi-Dose 50 ML VIAL (09:19)
== END 2019-02-05 12:40 | disposition home or self-care (01) ==
LOC: SUR 14:13
PROVIDERS: PCP Internal Medicine; Visit Provider Surgery
PROC: (CPT 49561; principal; 2019-02-05 07:30)
DX: K43.6 Other and unspecified ventral hernia with obstruction, without gangrene (principal); G89.18 Other acute postprocedural pain
CPT/HCPCS: 49561; 49568; 76942; NC; C1781; J0690; J1100; J1200; J2250; J2405

== ENCOUNTER 2019-02-25 01:24 | Outpatient (CLI) | payer OTHER, SELFPAY ==
--- NOTE | 2019-02-25 12:22 | DI.MRI_ITS ---
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 T1 and fat-suppressed T2 axial, sagittal and coronal sequences were performed. The exam is limited by patient motion, particularly the T2 weighted sequences. Metallic densities seen at the medial aspect of the navicular related to surgery. There is edema in the medial aspect of the ankle in the region of the posterior tibial tendon. The tendons appear grossly intact; however, the attachment is not well seen due to artifact. IMPRESSION: Limited exam due to motion. There is edema in the region of the previous surgery, but no evidence of a full-thickness tendon disruption.
== END 2019-02-25 01:44 ==
PROVIDERS: PCP Internal Medicine; Visit Provider Student in an Organized Health Care Education/Training Program
DX: M76.71 Peroneal tendinitis, right leg (principal); M76.821 Posterior tibial tendinitis, right leg; M79.671 Pain in right foot; R60.0 Localized edema
CPT/HCPCS: 73721

== ENCOUNTER 2019-03-03 00:54 | Outpatient (CLI) | payer OTHER, SELFPAY ==
--- NOTE | 2019-03-03 15:21 | DI.MAMMO_ITS ---
SYMPTOM/DIAGNOSIS: SCREENING Z12.39 BILATERAL SCREENING MAMMOGRAM: Mammograms were interpreted according to the usual protocol including computer analysis with CAD system, tomosynthesis and C view imaging. Comparison is made with exams from 2015 and 2017. The patient is again noted to be status post breast reduction. Surgical clips are seen in the upper outer quadrant of the left breast. The breasts are composed of fatty density tissue, breast density category A. There is minimal post surgical scarring. No suspicious masses or suspicious microcalcifications are seen. IMPRESSION: Category 2, negative mammogram with benign findings. Yearly screening mammography is recommended. Breast density category A. MQSA ASSESSMENT OF FINDINGS: Negative with benign findings. Category 2. Patient will receive a letter notifying them of these results. BI-RAD category A. The breasts are almost entirely fatty.
== END 2019-03-03 01:14 ==
PROVIDERS: PCP Internal Medicine; Visit Provider Internal Medicine
DX: Z12.31 Encounter for screening mammogram for malignant neoplasm of breast (principal); Z98.890 Other specified postprocedural states
CPT/HCPCS: 77063; 77067

== ENCOUNTER 2019-03-19 00:38 | Outpatient (CLI) | payer OTHER, SELFPAY ==
--- NOTE | 2019-03-19 10:07 | DI.RAD_ITS ---
SYMPTOM/DIAGNOSIS: F/U RIGHT ANKLE: There is some soft tissue swelling over the lateral malleolus. There is no evidence of an acute fracture or dislocation. A small area of radiolucency involving the medial talar dome is identified and would be consistent with a small region of osteochondritis dissecans. Note is made of a metallic anchor affixed to the medial portion of the navicular. This finding is unchanged when compared with previous images. A prominent calcaneal spur is identified measuring up to 12.5 mm. in length and a tiny area of spurring is noted at the insertion of the Achilles aparoneurosis on the calcaneus.
== END 2019-03-19 00:58 ==
PROVIDERS: PCP Internal Medicine; Visit Provider Student in an Organized Health Care Education/Training Program
DX: M85.871 Other specified disorders of bone density and structure, right ankle and foot (principal); M79.89 Other specified soft tissue disorders; M93.271 Osteochondritis dissecans, right ankle and joints of right foot; M77.31 Calcaneal spur, right foot
CPT/HCPCS: 73610

== ENCOUNTER 2019-05-16 01:34 | Outpatient (CLI) | payer OTHER, SELFPAY ==
--- NOTE | 2019-05-16 07:30 | DI.CT_ITS ---
SYMPTOM/DIAGNOSIS: S/P ;HERNIA REPAIR, ? RECURRENCE VS HEMATOMA K46.9 CT ABDOMEN AND PELVIS: Comparison is made with 19 Oct 2014. Images were performed from the lung bases through the ischial tuberosity after IV and oral contrast. In the anterior abdominal wall, in the midline above the level of the umbilicus, there is a fluid collection measuring 6.3 x 3.1 x 7 cm. This could represent an abscess or seroma. There is mesh beneath this level. There is no evidence of a recurrent hernia. There is a tiny fatty containing hernia at the level of the umbilicus. The lung bases are clear. The heart size is normal. The liver, gallbladder, spleen, pancreas, kidneys and adrenals appear normal. The urinary bladder is unremarkable. The patient is status post hysterectomy. There is no dilated bowel or evidence of inflammatory changes. There is hiatal hernia and suture material seen at the fundus and body of the stomach. Varicosities are noted on the right side of the abdomen, beneath the liver and around the ascending colon. There is no free air, free fluid or adenopathy. The aorta is normal in diameter and shows no significant atherosclerotic change. IMPRESSION: 7 cm seroma vs abscess in the upper abdominal wall. No evidence of a recurrent hernia.
[2019-05-16] MEDS: Breeza Beverage 473 ML BTL PO ×2 (07:44→07:46)
[2019-05-16] MEDS: Omnipaque 350 MG/ML 50 ML BTL PO (07:45)
[2019-05-16 08:46] LABS: CREATININE 0.58 mg/dL (0.55-1.02)
[2019-05-16] MEDS: Omnipaque 350 MG/ML 100 ML BTL IJ (09:12)
== END 2019-05-16 01:54 ==
PROVIDERS: PCP Internal Medicine; Visit Provider Surgery
DX: K42.9 Umbilical hernia without obstruction or gangrene; K44.9 Diaphragmatic hernia without obstruction or gangrene; Z98.890 Other specified postprocedural states; R19.05 Periumbilic swelling, mass or lump
CPT/HCPCS: 74177; 82565; J3490; Q9967

== ENCOUNTER → 2019-06-05 | Outpatient (CLI) | payer OTHER, SELFPAY ==
--- NOTE | 2019-06-05 07:27 | DI.RAD_ITS ---
EXAM: RF JOINT INJECTION FLUORO GUID CLINICAL HISTORY: Right Ankle Injection, osteochondral talar dome lesion, M94.9. TECHNIQUE: 2D and realtime digital imaging was performed.. COMPARISON: No exams were available for comparison FINDINGS: C-arm fluoroscopy was utilized by Dr. Solares during right ankle joint injection. Hard copy shows i njection tibiotalar joint FLUORO TIME: 12 sec
[2019-06-05] MEDS: Omnipaque 300 MG/ML 10 ML BTL IJ (15:31)
[2019-06-05] MEDS: Bupivacaine 0.5% Pres-Free 10 ML VIAL 2 ML IJ (15:32)
[2019-06-05] MEDS: methylPREDNISolone ACETATE 80 MG/ML VIAL IM (15:32)
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
== END ==
PROVIDERS: PCP Internal Medicine; Visit Provider Student in an Organized Health Care Education/Training Program
DX: M25.571 Pain in right ankle and joints of right foot (principal); M89.8X7 Other specified disorders of bone, ankle and foot; M79.89 Other specified soft tissue disorders
CPT/HCPCS: 20605; 77002; J1040

== ENCOUNTER → 2020-05-03 14:06 | Outpatient (CLI) | payer BC, SELFPAY ==
--- NOTE | 2020-05-03 13:15 | DI.RAD_ITS ---
EXAM: XR ANKLE RT 2V CLINICAL HISTORY: single lateral for bony collapse. TECHNIQUE: 2D digital imaging was performed. COMPARISON: CR XR ANKLE RT 2V from 05/09/2018 CR XR ANKLE RT COMPLETE from 03/19/2019 FINDINGS: A single lateral view was obtained per the ordering physician's request. There is a moderate-sized s pur at the plantar surface of the calcaneus. There is an enthesophyte at the Achilles insertion site . Alignment of the ankle appears anatomic on the lateral view. The bones appear in normally mineral ized. IMPRESSION: DATA REPOSITORY: RADIATION DOSE DELIVERED:
--- NOTE | 2020-05-03 13:15 | DI.RAD_ITS ---
EXAM: XR KNEE LT 2V AP,LAT CLINICAL HISTORY: lateral TKA knee pain. TECHNIQUE: 2D digital imaging was performed. COMPARISON: CR XR standing alignment from 08/23/2018 CR XR knee LT 1V from 08/23/2018 FINDINGS: There are stable postsurgical changes of a left total knee arthroplasty. The bones are intact. Vasc ular clips are seen in the soft tissues. The soft tissues are otherwise unremarkable. IMPRESSION: Stable left TKR. DATA REPOSITORY: RADIATION DOSE DELIVERED:
== END ==
PROVIDERS: PCP Internal Medicine; Referring Provider Internal Medicine; Visit Provider Student in an Organized Health Care Education/Training Program
DX: Z96.652 Presence of left artificial knee joint (principal); M25.562 Pain in left knee; M77.31 Calcaneal spur, right foot
CPT/HCPCS: 73560; 73600

== ENCOUNTER 2020-09-02 10:56 | Outpatient (CLI) | payer BC, SELFPAY ==
[2020-09-04 13:56] LABS: COVID-19 RT-PCR UVMMC Result Negative (Negative)
== END 2020-09-02 11:16 ==
PROVIDERS: PCP Internal Medicine; Visit Provider Student in an Organized Health Care Education/Training Program
DX: Z11.59 Encounter for screening for other viral diseases (principal); Z01.818 Encounter for other preprocedural examination
CPT/HCPCS: U0003

== ENCOUNTER 2020-09-08 06:17 | Day surgery (SDC) | payer BC, SELFPAY ==
[2020-09-08 06:42] VITALS: BP 118/79; PULSE 91; RESP 16; TEMP 36.6; O2SAT 100
[2020-09-08] MEDS: Lactated Ringers 1,000 ML 80 ML IV ×2 (07:15→09:17)
--- NOTE | 2020-09-08 07:28 | W.PM.DSUDISC ---
Discharge Plan Disposition Patient Disposition: HOME Condition: Good Discharge Details Reason For Visit: Right Posterior Tibial Tendon Dysfunction Attending Provider: Lan Solares Primary Care Provider: Avery Caballero Home Meds and New Rx's Prescriptions: New celecoxib 200 mg capsule 200 mg PO BID PRN (Reason: pain) Qty: 60 RF: 1 aspirin 81 mg tablet,delayed release (DR/EC) 81 mg PO BID Qty: 60 RF: 0 acetaminophen 500 mg tablet 1,000 mg PO Q8H PRN (Reason: pain) Qty: 90 RF: 3 tramadol 50 mg tablet 50 mg PO Q4H PRNQty: 18 RF: 0 Continued sennosides [Senna Lax] 8.6 mg tablet 8.6 mg PO BID PRNRF: 0 venlafaxine 75 mg tablet 187.5 mg PO DAILY RF: 0 fluticasone propion-salmeterol [Advair Diskus] 1 EACH blister with device 1 puff Inhalation BID RF: 0 B Complex 1 EACH tablet extended release 1 ea PO DAILY RF: 0 montelukast [Singulair] 10 MG tablet 10 mg PO HS RF: 0 cyanocobalamin (vitamin B-12) 250 MCG tablet 1 tab PO DAILY RF: 0 fluticasone propionate [Flonase Allergy Relief] 9.9 ML spray,suspension 9.9 ml NS BID RF: 0 Discontinued celecoxib 100 mg capsule 100 mg PO BID Qty: 60 RF: 3 acetaminophen 500 mg tablet 1,000 mg PO Q8H PRN PRN (Reason: pain) Qty: 100 RF: 0 No Action (DME) Articulating AFO Qty: 1 RF: 0 Discharge Instructions Additional Instructions: Activity: You are NON WEIGHT BEARING. You should keep the leg elevated as much as possible. You may wiggle your toes and move your hip and knee. You should mobilize with a walker or scooter or wheelchair. Resting the foot on the ground for balance is okay but avoid walking on the splint. Dressings: You should keep your splint clean and dry. Do NOT get wet or dirty. If you have issues with your splint, please call the office at [phone] or the hospital after hours. Medications: - You should take Tylenol and Celebrex around the clock for baseline pain. - You have been prescribed Tramadol for breakthrough pain. - You should take an Enteric Coated Baby Aspirin (81mg) twice a day for blood clot prevention. Follow-up: 2 weeks If you have any acute concerns or questions, please do not hesitate to contact the office at [phone]. You may contact Dr. Solares with any questions after hours through the hospital at [phone] or on his cell phone at [phone]. Referrals: Lan Solares MD [ [facility] STAFF PHYSICIAN] - Activity:: Elevate Remove Dressings/Wound Care:: Do Not Remove Shower/Bathe:: Cover Diet:: As Tolerated Discharge Orders Discharge Orders: Discharge Order (Routine); Ordered 09/08/20 Ordered By: Lan Solares DS: Diagnosis Discharge Diagnosis (1) Posterior tibial tendinitis, right leg: Status: Acute
--- NOTE | 2020-09-08 08:45 | DI.RAD_ITS ---
EXAM: XR FOOT RT LIMITED CLINICAL HISTORY: Posterior tibial tendinitis, right leg. TECHNIQUE: 2D digital imaging was performed. COMPARISON: No exams were available for comparison FINDINGS: Approximately was provided during fusion hindfoot surgery performed. Total fluoroscopy time 45.8 seconds. IMPRESSION: DATA REPOSITORY: RADIATION DOSE DELIVERED:
[2020-09-08] MEDS: ceFAZolin 2 GM/50 ML BAG IVPB (09:23)
[2020-09-08] MEDS: EPINEPHrine 1 MG/ML AMP pres-free (09:38)
[2020-09-08] MEDS: Bupivacaine 0.25% Pres-Free 30 ML VIAL (09:38)
[2020-09-08 11:51] VITALS: BP 151/88; PULSE 91; RESP 15; TEMP 36.4; O2SAT 98
[2020-09-08 11:55] VITALS: BP 132/86; PULSE 86; RESP 18; TEMP 36.4; O2SAT 97
[2020-09-08 12:00] VITALS: BP 138/82; PULSE 85; RESP 11; TEMP 36.4; O2SAT 97
[2020-09-08 12:15] VITALS: BP 136/79; PULSE 85; RESP 20; TEMP 36.6; O2SAT 98
[2020-09-08 13:11] VITALS: BP 124/71; PULSE 86; RESP 12; TEMP 36.6; O2SAT 100
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
== END 2020-09-08 14:12 | disposition home or self-care (01) ==
PROVIDERS: PCP Internal Medicine; Visit Provider Student in an Organized Health Care Education/Training Program
PROC: (CPT 28740; principal; 2020-09-08 08:45)
DX: M76.821 Posterior tibial tendinitis, right leg (principal); M79.89 Other specified soft tissue disorders; M83.9 Adult osteomalacia, unspecified; M89.8X7 Other specified disorders of bone, ankle and foot; V09.20XS Pedestrian injured in traffic accident involving unspecified motor vehicles, sequela; G89.18 Other acute postprocedural pain
CPT/HCPCS: 28715; 28300; C1713; 76942; 73620; J0171; J0690; J2250; J2405; J2704

== ENCOUNTER 2020-09-20 13:12 | Outpatient (CLI) | payer BC, SELFPAY ==
--- NOTE | 2020-09-20 12:00 | DI.RAD_ITS ---
EXAM: XR FOOT RT COMPLETE CLINICAL HISTORY: f/u R triple arthrodesis. TECHNIQUE: 2D digital imaging was performed. COMPARISON: XR FOOT RT LIMITED from 09/08/2020 FINDINGS: BONES: There are stable post operative changes present. No fracture or dislocation. JOINTS: The joint spaces are well maintained. No joint effusion is present. SOFT TISSUE: Mild soft tissue swelling of the hindfoot. IMPRESSION: Stable postoperative changes. DATA REPOSITORY: RADIATION DOSE DELIVERED:
== END 2020-09-20 13:32 ==
PROVIDERS: PCP Internal Medicine; Referring Provider Internal Medicine; Visit Provider Student in an Organized Health Care Education/Training Program
DX: Z98.1 Arthrodesis status (principal)
CPT/HCPCS: 73630

== ENCOUNTER 2020-10-18 11:59 | Outpatient (CLI) | payer BC, SELFPAY ==
--- NOTE | 2020-10-18 11:15 | DI.RAD_ITS ---
EXAM: XR FOOT RT COMPLETE CLINICAL HISTORY: f/u R triple arthrodesis. TECHNIQUE: 2D digital imaging was performed. COMPARISON: CR XR FOOT RT COMPLETE from 09/20/2020 FINDINGS: Again noted are the 2 screws across the subtalar joint as well as fusion hardware across the calcaneo cuboid joint and talonavicular joint. Appearance is radiographically unchanged. There is no osseous fusion at this time. No radiographic evidence of hardware failure nor osteomyelitis. Inferior calcaneal scatter again note IMPRESSION: DATA REPOSITORY: RADIATION DOSE DELIVERED:
== END 2020-10-18 12:00 | disposition home or self-care (01) ==
LOC: DIORS 12:00
PROVIDERS: PCP Internal Medicine; Referring Provider Internal Medicine; Visit Provider Student in an Organized Health Care Education/Training Program
DX: Z98.1 Arthrodesis status (principal)
CPT/HCPCS: 73630

== ENCOUNTER 2020-11-15 11:51 | Outpatient (CLI) | payer BC, SELFPAY ==
--- NOTE | 2020-11-15 10:45 | DI.RAD_ITS ---
EXAM: XR FOOT RT COMPLETE CLINICAL HISTORY: post op f/u. TECHNIQUE: 2D digital imaging was performed. COMPARISON: CR XR FOOT RT COMPLETE from 10/18/2020 FINDINGS: Again noted are the 2 screws across the subtalar joint as well as fusion hardware across the calcaneo cuboid and talonavicular joints. Appearance is essentially unchanged from 10/18/2020. No fractures. No radiographic evidence of osteomyelitis. IMPRESSION: DATA REPOSITORY: RADIATION DOSE DELIVERED:
== END 2020-11-15 11:52 | disposition home or self-care (01) ==
LOC: DIORS 11:51
PROVIDERS: PCP Internal Medicine; Referring Provider Internal Medicine; Visit Provider Student in an Organized Health Care Education/Training Program
DX: Z98.1 Arthrodesis status (principal)
CPT/HCPCS: 73630

== ENCOUNTER 2021-01-24 11:01 | Outpatient (CLI) | payer BC, SELFPAY ==
--- NOTE | 2021-01-24 10:45 | DI.RAD_ITS ---
Exam(s) XR ANKLE RT 2V EXAM: XR ANKLE RT 2V CLINICAL HISTORY: eval R ankle pain. TECHNIQUE: 2D digital imaging was performed. COMPARISON: CR XR ANKLE RT COMPLETE from 03/19/2019 FINDINGS: There has been interval surgery with placement of 2 fusion screws across the subtalar joint and other fusion hardware across the calcaneocuboid and talonavicular joints. There is also a fastener device s in the navicular bone again noted. Prominent inferior calcaneal spur is noted. Talar dome unremarkable. IMPRESSION: DATA REPOSITORY: RADIATION DOSE DELIVERED:
--- NOTE | 2021-01-24 10:45 | DI.RAD_ITS ---
Exam(s) XR FOOT RT COMPLETE EXAM: XR FOOT RT COMPLETE CLINICAL HISTORY: f/u R triple arthrodesis. TECHNIQUE: 2D digital imaging was performed. COMPARISON: CR XR FOOT RT COMPLETE from 11/15/2020 FINDINGS: Again noted are 2 screws across the subtalar joint as well as fusion hardware across the calcaneocubo id and talonavicular joint. Appearance remains unchanged from 11/15/2020. There is non complete fus ion at these levels. There is no radiographic evidence of osteomyelitis. Moderate size inferior calcaneal spur is again noted. No fractures. No diastasis of the Lisfranc joint. IMPRESSION: DATA REPOSITORY: RADIATION DOSE DELIVERED:
== END 2021-01-24 11:02 | disposition home or self-care (01) ==
LOC: DIORS 11:01
PROVIDERS: PCP Internal Medicine; Referring Provider Internal Medicine; Visit Provider Student in an Organized Health Care Education/Training Program
DX: M77.31 Calcaneal spur, right foot (principal); M25.571 Pain in right ankle and joints of right foot; Z98.1 Arthrodesis status
CPT/HCPCS: 73600; 73630

== ENCOUNTER 2021-03-21 08:46 | Outpatient (CLI) | payer BC, SELFPAY ==
--- NOTE | 2021-03-21 08:30 | DI.RAD_ITS ---
Exam(s) XR FOOT RT COMPLETE EXAM: XR FOOT RT COMPLETE CLINICAL HISTORY: f/u triple arthrodesis of R foot. TECHNIQUE: 2D digital imaging was performed. COMPARISON: CR XR FOOT RT COMPLETE from 01/24/2021 FINDINGS: Fusion hardware in the posterior foot again noted across the subtalar joint as well as across the temi onavicular and calcaneocuboid joints. Appears unchanged. There does not yet appear to be complete f usion. No radiographic evidence of loosening nor osteomyelitis. Moderate size inferior calcaneal sp ur is again noted. IMPRESSION: DATA REPOSITORY: RADIATION DOSE DELIVERED:
--- NOTE | 2021-03-21 08:30 | DI.RAD_ITS ---
Exam(s) XR KNEE LT 3V AP,LAT,BLOSSOM EXAM: XR KNEE LT 3V AP,LAT,BLOSSOM CLINICAL HISTORY: eval L knee pain and clunk. TECHNIQUE: 2D digital imaging was performed. COMPARISON: CR XR KNEE LT 2V AP,LAT from 05/03/2020 FINDINGS: Three views reveal stable position alignment of the components of prosthesis. No fracture or looseni ng. IMPRESSION: DATA REPOSITORY: RADIATION DOSE DELIVERED:
== END 2021-03-21 08:47 | disposition home or self-care (01) ==
LOC: DIORS 08:47
PROVIDERS: PCP Internal Medicine; Referring Provider Internal Medicine; Visit Provider Student in an Organized Health Care Education/Training Program
DX: M76.821 Posterior tibial tendinitis, right leg (principal); M25.862 Other specified joint disorders, left knee; M25.562 Pain in left knee
CPT/HCPCS: 73562; 73630

== ENCOUNTER 2021-04-25 02:06 | Outpatient (CLI) | payer BC, SELFPAY ==
[2021-04-25 11:03] LABS: Source Nasal/Nares
[2021-04-25 13:57] LABS: COVID-19 PCR Negative (Negative)
== END 2021-04-25 02:07 | disposition home or self-care (01) ==
LOC: LBO 02:07
PROVIDERS: PCP Internal Medicine; Visit Provider Student in an Organized Health Care Education/Training Program
DX: Z20.822 Contact with and (suspected) exposure to COVID-19 (principal); Z01.818 Encounter for other preprocedural examination
CPT/HCPCS: 87635

== ENCOUNTER 2021-04-26 09:35 | Day surgery (SDC) | payer BC, SELFPAY ==
[2021-04-26] VITALS (10 sets, daily range): BP systolic 72–133; BP diastolic 38–70; PULSE 62–82; RESP 16–31; TEMP 36–36.6; O2SAT 95–100; BMI 38.1
--- NOTE | 2021-04-26 07:43 | PDOC.DSDIS_ITS ---
Discharge Plan Disposition Patient Disposition: HOME Condition: Stable Discharge Details Reason For Visit: Left Knee Arthroscopy Attending Provider: Lan Solares Primary Care Provider: Avery Caballero Home Meds and New Rx's Prescriptions: New tramadol 50 mg tablet 50 mg PO Q8H PRNQty: 10 RF: 0 Continued sennosides [Senna Lax] 8.6 mg tablet 8.6 mg PO BID PRNRF: 0 tramadol 50 mg tablet 50 mg PO Q8H PRN (Reason: julia) Qty: 12 RF: 0 venlafaxine 75 mg tablet 225 mg PO DAILY RF: 0 B Complex 1 EACH tablet extended release 1 ea PO DAILY RF: 0 montelukast [Singulair] 10 MG tablet 10 mg PO HS RF: 0 cyanocobalamin (vitamin B-12) 250 MCG tablet 1 tab PO DAILY RF: 0 fluticasone propionate [Flonase Allergy Relief] 9.9 ML spray,suspension 9.9 ml NS BID RF: 0 (DME) Articulating AFO Qty: 1 RF: 0 celecoxib 200 mg capsule 200 mg PO BID PRN (Reason: pain) Qty: 60 RF: 1 acetaminophen 500 mg tablet 1,000 mg PO Q8H PRN (Reason: pain) Qty: 90 RF: 3 budesonide-formoterol [Symbicort] 160-4.5 mcg/actuation HFA aerosol inhaler 2 puff INHALATION DAILY RF: 0 Discharge Instructions Stand Alone Forms: [facility] Knee Arthroscopy Referrals: Lan Solares MD [ [facility] STAFF PHYSICIAN] - Equipment/Supplies: Partial Weight Bearing Crutches Activity:: Activity as Tolerated Remove Dressings/Wound Care:: 72 hours Shower/Bathe:: 72 hours Diet:: As Tolerated Discharge Orders Discharge Orders: Discharge Order (Routine); Ordered 04/26/21 Ordered By: Fadia Barger DS: Diagnosis Discharge Diagnosis (1) Patellar clunk syndrome of left knee: Status: Acute
[2021-04-26] MEDS: Lactated Ringers 1,000 ML 80 ML IV (10:11)
--- NOTE | 2021-04-26 10:12 | W.PREOPHP ---
Date of service: 04/26/21 Time of Service: 10:12 Assessment and Plan Assessment and plan (1) Patellar clunk syndrome of left knee: Status: Acute Assessment and plan: Faith is a 56-year-old who has notable crepitus and pain about her left knee after knee replacement. She also has an element patellar clunk. Given the persistence of the symptoms I recommended arthroscopic synovectomy with debridement. I reviewed the risk with her in the office. I also reviewed them today. The most likely complication is persistent symptoms along with this. She agrees to proceed. History of Present Illness History of Present Illness Chief Complaint: Left Knee Patella Clunk Narrative: Faith is a 56-year-old who underwent a left knee replacement and has had some issues with pain, crepitus, and patellar clunk. Given the mechanical nature of this pain I do have concern that she has notable synovitis which is causing this impingement. She has tried to treat this with time and physical therapy but continues have symptoms. Please reference the last office note for complete discussion but she is here today for arthroscopic synovectomy of the left knee in the setting of a knee replacement. She denies any new symptoms. No new trauma. No sick contacts. She denies fever or chills. She has had no shortness of breath or cough. Review of Systems All systems reviewed & are unremarkable except as noted in HPI and below PFSH Medical History Asthma History of anxiety History of depression Ventral hernia with obstruction Surgical History History of appendectomy History of bilateral breast reduction surgery History of cosmetic surgery skin removal from arms and legs History of gastric stapling History of knee replacement History of repair of hiatal hernia History of tonsillectomy and adenoidectomy History of total abdominal hysterectomy Hx of colonoscopy S/P hernia repair (~02/05/19) Status post right foot surgery Excision accessory navicular with reattachment of posterior tibial tendon Trephination of calcaneus for heel fat pad mobility DOS: 05/09/18 Family History Other Diabetes Heart disease Kidney disease Social History Smoking/Tobacco Use Status: Never Smoking risk assessment performed?: Yes Alcohol Intake: current Alcohol Intake frequency: holidays/special occasions only Alcohol type: wine Drug use: Never Substance use type: does not use Household members: spouse Current gender identity: female Do you feel safe at home: Yes Do you feel safe in your relationship?: Yes Meds Allergies and Home Medications Allergies Allergy/AdvReac Type Severity Reaction Status Date / Time adhesive tape Allergy Severe Skin Rash Unverified 04/26/21 09:41 latex Allergy Severe Hives, Unverified 04/26/21 09:41 blisters, rash meclizine Allergy Severe unresponsiv Unverified 04/26/21 09:41 e ibuprofen AdvReac Unknown Other (See Verified 04/26/21 09:41 Comment) Home Medications Medication Instructions Recorded Confirmed Type B Complex 1 ea PO DAILY 11/25/14 04/26/21 History cyanocobalamin (vitamin B-12) 1 tab PO DAILY 11/25/14 04/26/21 History montelukast [Singulair] 10 mg PO HS tab-cap 11/25/14 04/26/21 History fluticasone propionate [Flonase 9.9 ml NS BID 05/28/17 04/26/21 History Allergy Relief] sennosides 8.6 mg tablet 8.6 mg PO BID PRN 10/28/18 04/26/21 History Articulating AFO #1 ea 06/25/19 04/25/21 Rx acetaminophen 1,000 mg PO Q8H PRN #90 tab 09/08/20 04/25/21 Rx celecoxib 200 mg PO BID PRN #60 cap 09/08/20 04/26/21 Rx tramadol 50 mg tablet 50 mg PO Q8H PRN #12 tab 09/20/20 04/25/21 Rx venlafaxine 75 mg tablet 225 mg PO DAILY tab 03/21/21 04/26/21 History budesonide-formoterol [Symbicort] 2 puff INHALATION DAILY 04/25/21 04/26/21 History tramadol 50 mg PO Q8H PRN #10 tab 04/26/21 Rx Exam Const General: cooperative, healthy appearing, comfortable and no acute distress Nutritional Appearance: average body habitus Orientation: alert, awake and oriented x3 Resp Effort & Inspection: normal respiratory effort Auscultation: clear to auscultation bilaterally Cardio Rate: regular rate Rhythm: regular rhythm Results Last Vital Signs Temp 36.1 C L 04/26/21 09:47 Pulse 82 04/26/21 09:47 Resp 16 04/26/21 09:47 BP 107/58 L 04/26/21 09:47 Pulse Ox 99 04/26/21 09:47
[2021-04-26] MEDS: Celecoxib 200 MG CAP 400 MG PO (10:14)
[2021-04-26] MEDS: Acetaminophen 500 MG TAB 1000 MG PO (10:14)
--- NOTE | 2021-04-26 10:18 | ANES.PREOP_ITS ---
General Info Date of Service Date Performed: 04/26/21 Height: 4 ft 11 in Weight: 85.729 kg Body Mass Index (BMI): 38.1 Surgical Procedure: Operation Date: 04/26/21 11:10 Proposed Procedures Side Surgeon p Knee Arthroscopy Left Lan Solares MD Meds Allergies and Home Medications Allergies Allergy/AdvReac Type Severity Reaction Status Date / Time adhesive tape Allergy Severe Skin Rash Unverified 04/26/21 09:41 latex Allergy Severe Hives, Unverified 04/26/21 09:41 blisters, rash meclizine Allergy Severe unresponsiv Unverified 04/26/21 09:41 e ibuprofen AdvReac Unknown Other (See Verified 04/26/21 09:41 Comment) Home Medication Medication Instructions Recorded B Complex 1 ea PO DAILY 11/25/14 cyanocobalamin (vitamin B-12) 1 tab PO DAILY 11/25/14 montelukast [Singulair] 10 mg PO HS tab-cap 11/25/14 fluticasone propionate [Flonase 9.9 ml NS BID 05/28/17 Allergy Relief] sennosides 8.6 mg tablet 8.6 mg PO BID PRN 10/28/18 Articulating AFO #1 ea 06/25/19 acetaminophen 1,000 mg PO Q8H PRN #90 tab 09/08/20 celecoxib 200 mg PO BID PRN #60 cap 09/08/20 tramadol 50 mg tablet 50 mg PO Q8H PRN #12 tab 09/20/20 venlafaxine 75 mg tablet 225 mg PO DAILY tab 03/21/21 budesonide-formoterol [Symbicort] 2 puff INHALATION DAILY 04/25/21 tramadol 50 mg PO Q8H PRN #10 tab 04/26/21 Current Visit Medications: Current Medications Generic Name Dose Route Start Last Admin Trade Name Freq PRN Reason Stop Dose Admin Acetaminophen 650 mg 04/26/21 07:42 Acetaminophen 325 Mg Tab PO Q4H PRN PRN Acetaminophen 1,000 mg 04/26/21 06:00 Acetaminophen 500 Mg Tab PO 04/26/21 16:00 PREOP PAT Celecoxib 400 mg 04/26/21 06:00 Celecoxib 200 Mg Cap PO 04/26/21 16:00 PREOP PAT Gabapentin 300 mg 04/26/21 06:00 Gabapentin 300 Mg Cap PO 04/26/21 16:00 PREOP PAT Ringer's Solution 1,000 mls @ 80 mls/hr 04/26/21 06:00 04/26/21 10:11 IV 05/25/21 23:59 80 mls/hr INFUSION [facility] Administration Cefazolin Sodium 2,000 mg/ 100 mls @ 200 mls/hr 04/26/21 06:00 Sodium Chloride IVPB 04/26/21 23:59 PREOP PAT Ondansetron HCl 4 mg/ Sodium 52 mls @ 200 mls/hr 04/26/21 07:42 Chloride IVPB Q6H PRN PRN IV Miscellaneous Supplies 1 each 04/26/21 06:00 Iv Access IV 05/25/21 23:59 DIRECTED PAT Oxycodone HCl 5 mg 04/26/21 07:42 Oxycodone 5 Mg Tab PO Q3H PRN PRN Pain Sodium Chloride 0 ml 04/26/21 06:00 Normal Saline Flush 10 Ml Syr IV 05/25/21 23:59 PRN PRN Sodium Chloride 0 ml 04/26/21 06:00 Normal Saline 10 Ml Vial IJ 05/25/21 23:59 DIRECTED PRN Sterile Water 0 ml 04/26/21 06:00 Water,Injection,Sterile 10 Ml Vial IJ 05/25/21 23:59 DIRECTED PRN PFSH Active Problems Active Problems: Problem Status Onset Code 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 Benign paroxysmal positional vertigo 11/25/14 H81.10 Biceps tendinitis of left shoulder 01/24/17 M75.22 Crushing injury of right foot and ankle 01/10/17 S97.01XA, S97.81XA Posterior tibial tendinitis, right leg 04/28/18 M76.821 Rotator cuff tendinitis 03/07/17 M75.80 Pain associated with accessory navicular bone of right foot 03/12/18 M79.671, Q74.2 History of total left knee replacement (TKR) Z96.652 Peroneal tendinitis of right lower leg M76.71 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, M94.9 S/P hernia repair ~02/05/19 Z98.890, Z87.19 Ventral hernia with obstruction K43.6 History of tonsillectomy and adenoidectomy Z98.890 History of appendectomy Z90.49 History of repair of hiatal hernia Z98.890, Z87.19 History of gastric stapling Z98.84 History of bilateral breast reduction surgery Z98.890 History of total abdominal hysterectomy Z90.710 Status post right foot surgery Z98.890 Asthma J45.909 Medical History Medical History Asthma History of anxiety History of depression Ventral hernia with obstruction Surgical History Surgical History History of appendectomy History of bilateral breast reduction surgery History of cosmetic surgery skin removal from arms and legs History of gastric stapling History of knee replacement History of repair of hiatal hernia History of tonsillectomy and adenoidectomy History of total abdominal hysterectomy Hx of colonoscopy S/P hernia repair (~02/05/19) Status post right foot surgery Excision accessory navicular with reattachment of posterior tibial tendon Trephination of calcaneus for heel fat pad mobility DOS: 05/09/18 Tobacco Smoking/Tobacco Use Status: Never Alcohol Alcohol Intake: current Alcohol intake frequency: holidays/special occasions only Alcohol type: wine Substance Use Substance use: Never Substance use type: does not use Vital Signs and Lab Results Vital Signs Most Recent Vital Signs in EMR: Most Recent Vital Signs Temp Pulse Resp BP Pulse Ox 36.1 C L 82 16 107/58 L 99 04/26/21 09:47 04/26/21 09:47 04/26/21 09:47 04/26/21 09:47 04/26/21 09:47 Lab Results Blood Type / Crossmatch: No Data to Display Complete Blood Count: No Data to Display Complete Metabolic Panel: No Data to Display Liver Function Panel: No Data to Display Coagulation Panel: No Data to Display Cardiac Panel: No Data to Display Arterial Blood Gas: No Data to Display Venous Blood Gas: No Data to Display Pancreas Panel: No Data to Display Thyroid Panel: No Data to Display Infectious Disease: Coronavirus (COVID-19)(PCR) Negative (Negative) 04/25/21 09:19 04/25/21 Coronavirus 2019 Source Nasal/Nares 04/25/21 09:19 04/25/21 Blood Cultures: No Data to Display Toxicology Panel: No Data to Display Anesthesia Assessment and Plan Anesthesia History Personal History: PONV Family History: No Family History of Anesthesia Complications Exercise Tolerance Exercise Tolerance: Metabolic Equivalents>4 Pertinent Negatives Pertinent Negatives: No Symptoms of GERD, No Major Cardiovascular Symptoms or Complaints, No Major Pulmonary Symptoms or Complaints (Asthma well controlled) and No History of CVA/TIA Cardiac & Pulmonary Exam Cardiac Exam: Normal S1/S2 Heart Sounds Pulmonary Exam: Clear Bilateral Breath Sounds Airway Exam Known Difficult Airway: No Mallampati Class: 3 Mouth Opening: Normal (> 3cm) Thyromental Distance: Greater than 3 cm Neck Range of Motion: Full ROM Neck Circumference: Normal Teeth Condition: Normal Dentition and Removable Dentures/Plates Lower ASA Classification ASA Score: ASA 2 Emergency Case?: No NPO Status NPO Status: NPO Clears >2 hours, Solids >8 hours Anesthesia Plan Resuscitation Status: Full Code Anesthesia Technique: General Anesthesia Airway Planned: LMA Monitors Used: Standard Monitors
[2021-04-26] MEDS: Gabapentin 300 MG CAP PO (10:21)
[2021-04-26] MEDS: ceFAZolin 2,000 MG in Normal Saline 100 ML 200 MG IVPB (11:08)
[2021-04-26] MEDS: Bupivacaine 0.5% Pres-Free 30 ML VIAL (11:37)
--- NOTE | 2021-04-26 12:04 | W.PM.OP ---
Date of service: 04/26/21 Time of Service: 11:41 Operative Note Operative Note DATE OF PROCEDURE: 04/26/21 PRE-OP DIAGNOSIS: Painful Left Knee Synovitis, Patellar Clunk POST-OP DIAGNOSIS: same PROCEDURE: Arthroscopic Synovectomy of 3 Compartments - LEFT Knee SURGEON: Lan Solares ANESTHESIA TYPE: General LMA/ETT Refer to Anesthesia Record ESTIMATED BLOOD LOSS: 5 PATHOLOGY: none sent COMPLICATIONS: None Patient was transported to: PACU Patient's condition: stable Indications: I have seen Hannah in clinic for symptoms of pain and crepitus of the knee following knee replacement surgery. Nonoperative measures were exhausted but disability due to lack of motion persisted. I discussed knee arthroscopy with synovectomy with the patient. I reviewed the risks of the procedure to include, but not limited to, bleeding, infection, pain, continued stiffness, recurrence, blood clot. Despite these risks, the patient elected to proceed. Findings: There was some pedunculated scar tissue seen around the patella which was encroaching on the patellar edge and impinged between the patella and the trochlea. There is also scar tissue seen in both medial lateral gutters which interposed between the femur and the tibia. Procedure Description: Faith was greeted in the preoperative holding area where the correct side was identified and marked. The consent was reviewed with the patient and signed. The history and physical was updated. All questions were answered. She was taken back to the operating room. The patient was placed into the supine position on the operating room table. All bony prominences were well padded. Prophylactic antibiotics in the form of Cefazolin were administered. The left leg was then prepped with Chloraprep and draped in a standard fashion with stockinette and extremity drape. A timeout to confirm correct identity, side and site, procedure, allergies, anesthesia, and medical concerns was performed. The leg was placed into a pneumatic leg zepeda, SPIDER2. A standard lateral portal was made at the lateral border of the patella tendon in line with the inferior pole of the patella, soft spot. The skin and deep tissue was incised sharply and the blunt trochar was inserted atraumatically. At this point had visualization of the femoral component. There was noted to be some pedunculated scar tissue seen around the patella which is also encroaching the patella interposed between the patella and the femoral component. A superolateral portal was then established with spinal needle localization just superior and lateral to the patella. A knife was taken down through the skin and soft tissue to enter the knee joint. Starting in the superior compartment above the femoral component and anterior to the femur I released all scarring between the anterior femoral synovium and the overlying extensor mechanism. This was taken through all of any noticeable scar tissue until the superior patellar pouch was fully released and mobile. This resection was carried out mostly with electrocautery as well as shaver. Once this was released fully from lateral to medial superiorly I then continue working down the lateral gutter. All scar tissue in the lateral gutter was released so there is normal space and movement between the capsular tissues and the edge of the femoral component and femur. This was taken down through the lateral gutter such that I was able to identify the polyethylene to its posterior corner. Once again, all scar tissue in this area was resected so the polyethylene was easily visible and there is no interposed tissue in the back or the polyethylene was identified. I think continue to work anteriorly. To continue the synovectomy from the lateral compartment to the anterior compartment into the medial compartment, I placed a medial portal under spinal needle localization. Once this was in place it became another working portal and I continued the synovectomy through the anterior compartment to the medial compartment. Once again, I freed up the medial gutter so I was able to visualize the polyethylene from the anterior posterior margins. There is no interposed tissue after full synovectomy was performed. Adhesions between the capsule and the femur were released. This was continued up the medial gutter until it met up with the releases performed previously in the superior compartment. Any remnant scar tissue from around the patella was then removed with a shaver and electrocautery. The arthroscope was brought back into the suprapatellar pouch and the leg was in full extension. The knee was thoroughly irrigated with the arthroscopic fluid on high flow and pressure. Inflow was stopped and excess fluid was removed. The wounds were dressed with Xeroform, 4x4 gauze, ABD pad, Kerlix and an REBECCA wrap. A cryo-cuff was applied. The patient tolerated the procedure well and was returned to the Same Day Surgery area in a stable condition suffering no known complication..
--- NOTE | 2021-04-26 13:14 | W.ANESPOSTOP ---
Postoperative Evaluation Date, Time and Location Date Performed: 04/26/21 Time Performed: 13:14 Patient Location: Day Surgery Unit Vital Signs Most Recent Imported Vital Signs: Most Recent Vital Signs Temp Pulse Resp BP Pulse Ox 36.4 C L 66 18 105/62 95 04/26/21 13:00 04/26/21 13:00 04/26/21 13:00 04/26/21 13:00 04/26/21 13:00 Pain Score Most Recent Pain Score: Most Recent Pain Score Pain Level 3 04/26/21 13:00 Assessment Mental Status: Awake (Alert & Oriented to Patient Baseline) Airway and Respiratory Function: Patent airway with normal (patient baseline) respiratory exam Cardiovascular Function: Hemodynamically Stable Hydration Status: Adequately Hydrated Nausea & Vomiting: No Nausea or Vomiting Pain: Pain is tolerable per patient Peripheral Nerve Block: Patient did not receive a nerve block
== END 2021-04-26 14:50 | disposition home or self-care (01) ==
LOC: SUR 09:36
PROVIDERS: PCP Internal Medicine; Visit Provider Student in an Organized Health Care Education/Training Program
PROC: (CPT 29870; principal; 2021-04-26 11:00)
DX: M65.862 Other synovitis and tenosynovitis, left lower leg (principal); M25.862 Other specified joint disorders, left knee
CPT/HCPCS: 29876; J0690; J1100; J1885; J2001; J2405; J2704

== ENCOUNTER 2021-04-29 03:34 | Outpatient (CLI) | payer BC, SELFPAY ==
--- NOTE | 2021-04-29 | DI.MAMMO_ITS ---
Exam(s) MAMMO SCREENING EXAM: MAMMO SCREENING CLINICAL HISTORY: SCREENING, Z12.39 TECHNIQUE: Bilateral full field digital CC and MLO mammographic images were obtained with 3D tomosyn thesis and utilizing computer aided detection (CAD). COMPARISON: Available for comparison. FINDINGS: Masses/Architectural Distortion: None seen. Microcalcifications: No suspicious pleomorphic-type are seen. Skin Thickening/Nipple Retraction: None. IMPRESSION: 1. No significant interval change with no specific features of malignancy noted. 2. Unless there is more urgent need, screening mammography is recommended, as per [employer] guidelines. BI-RADS Category 1 - Negative Breast Density - Category B - Scattered areas of fibroglandular density Breast density category C or D implies that the patient has dense breast tissue. Dense breast tissue is very common and is not abnormal but dense breast tissue can make it harder to find cancer on a ma mmogram. Also, dense breast tissue may increase their breast cancer risk. This information about the result of the mammogram report was provided to the patient to raise their awareness. Use this report when you speak with the patient about their risks for breast cancer, which includes their family hist ory. At that time, you may recommend for more screening tests (Ultrasound or MRI) as they might be us eful based on their risk. A negative radiographic report should not delay biopsy if a dominant or clinically suspicious mass is present. Up to ten percent of cancers are not identified on mammography. A negative report may reinforce clinical impression. Adenosis and dense breasts may obscure an underlying neoplasm. False positive reports average 6 to 10%. Patient will receive a letter notifying them of these results.
== END 2021-04-29 03:54 ==
PROVIDERS: PCP Internal Medicine; Visit Provider Internal Medicine
DX: Z12.31 Encounter for screening mammogram for malignant neoplasm of breast (principal)
CPT/HCPCS: 77063; 77067

== ENCOUNTER 2021-06-13 09:33 | Outpatient (CLI) | payer BC, SELFPAY ==
--- NOTE | 2021-06-13 09:00 | DI.RAD_ITS ---
Exam(s) XR FOOT RT COMPLETE EXAM: XR FOOT RT COMPLETE CLINICAL HISTORY: worsening lateral R foot pain, s/p triple TECHNIQUE: COMPARISON: CR XR FOOT RT COMPLETE from 03/21/2021 FINDINGS: Three views were obtained. Previously described hindfoot arthrodesis is again noted with fixation ap paratus in place. No gross interval change in alignment comparison with examination of March 21. IMPRESSION: RADIATION DOSE DELIVERED: Total DLP
== END 2021-06-13 09:34 | disposition home or self-care (01) ==
LOC: DIORS 09:34
PROVIDERS: PCP Internal Medicine; Referring Provider Internal Medicine; Visit Provider Student in an Organized Health Care Education/Training Program
DX: M79.671 Pain in right foot (principal); Z98.1 Arthrodesis status; Z47.89 Encounter for other orthopedic aftercare
CPT/HCPCS: 73630

== ENCOUNTER → 2021-08-25 08:30 | Outpatient (BNVA) | payer MEDICARE, BC, SELFPAY | PROVIDERS: PCP Internal Medicine; Referring Provider Internal Medicine; Visit Provider Student in an Organized Health Care Education/Training Program | DX: M19.271 Secondary osteoarthritis, right ankle and foot (principal); M96.0 Pseudarthrosis after fusion or arthrodesis; M25.862 Other specified joint disorders, left knee | CPT/HCPCS: 99213 ==

== ENCOUNTER 2021-08-26 02:01 | Outpatient (CLI) | payer MEDICARE, BC, SELFPAY ==
[2021-08-26 10:41] LABS: Source Nasal/Nares
[2021-08-27 12:51] LABS: COVID-19 PCR Negative (Negative)
== END 2021-08-26 02:02 | disposition home or self-care (01) ==
LOC: LBO 02:01
PROVIDERS: PCP Internal Medicine; Visit Provider Student in an Organized Health Care Education/Training Program
DX: Z20.822 Contact with and (suspected) exposure to COVID-19 (principal)
CPT/HCPCS: 87635

== ENCOUNTER 2021-08-29 12:07 | Day surgery (SDC) | payer MEDICARE, BC, SELFPAY ==
[2021-08-29] VITALS (9 sets, daily range): BP systolic 107–150; BP diastolic 56–89; PULSE 59–81; RESP 16–23; TEMP 36.4–36.7; O2SAT 94–99; BMI 39.4
--- NOTE | 2021-08-29 10:54 | W.PM.DSUDISC ---
Discharge Plan Disposition Patient Disposition: HOME Condition: Good Discharge Details Reason For Visit: (L) Knee Arthroscopy Attending Provider: Lan Solares Primary Care Provider: Avery Caballero Home Meds and New Rx's Prescriptions: New acetaminophen 500 mg capsule 1,000 mg PO Q8H PRN PRNQty: 30 RF: 0 celecoxib [Celebrex] 200 mg capsule 200 mg PO BID Qty: 60 RF: 0 hydrocodone-acetaminophen 5-325 mg tablet 1 tab PO Q6H PRNQty: 5 RF: 0 Continued sennosides [Senna Lax] 8.6 mg tablet 8.6 mg PO BID PRNRF: 0 venlafaxine 75 mg tablet 225 mg PO DAILY RF: 0 bupropion HCl 150 mg tablet extended release 24 hr 150 mg PO QAM RF: 0 tramadol 50 mg tablet 50 mg PO Q8H PRN (Reason: pain) Qty: 60 RF: 0 B Complex 1 EACH tablet extended release 1 ea PO DAILY RF: 0 montelukast [Singulair] 10 MG tablet 10 mg PO HS RF: 0 cyanocobalamin (vitamin B-12) 250 MCG tablet 1 tab PO DAILY RF: 0 fluticasone propionate [Flonase Allergy Relief] 9.9 ML spray,suspension 9.9 ml NS BID RF: 0 (DME) Articulating AFO Qty: 1 RF: 0 celecoxib 200 mg capsule 200 mg PO BID PRN (Reason: pain) Qty: 60 RF: 1 acetaminophen 500 mg tablet 1,000 mg PO Q8H PRN (Reason: pain) Qty: 90 RF: 3 budesonide-formoterol [Symbicort] 160-4.5 mcg/actuation HFA aerosol inhaler 2 puff INHALATION DAILY RF: 0 Discharge Instructions Stand Alone Forms: Sujatha Knee Arthroscopy Equipment/Supplies: Partial Weight Bearing Crutches Activity:: Activity as Tolerated Remove Dressings/Wound Care:: 72 hours Shower/Bathe:: 72 hours Diet:: As Tolerated Discharge Orders Discharge Orders: Discharge Order (Routine); Ordered 08/29/21 Ordered By: Fadia Barger DS: Diagnosis Discharge Diagnosis (1) Patellar clunk syndrome of left knee: Status: Acute
--- NOTE | 2021-08-29 12:46 | W.ANESPRE ---
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 (3) Patellar clunk syndrome of left knee Meds Allergies and Home Medications Allergies Allergy/AdvReac Type Severity Reaction Status Date / Time adhesive tape Allergy Severe Skin Rash Verified 08/29/21 12:28 latex Allergy Severe Hives, Verified 08/29/21 12:28 blisters, rash meclizine Allergy Severe unresponsiv Verified 08/29/21 12:28 e ibuprofen AdvReac Unknown Other (See Verified 08/29/21 12:27 Comment) Home Medication Medication Instructions Recorded B Complex 1 ea PO DAILY 11/25/14 cyanocobalamin (vitamin B-12) 1 tab PO DAILY 11/25/14 montelukast [Singulair] 10 mg PO HS tab-cap 11/25/14 fluticasone propionate [Flonase 9.9 ml NS BID 05/28/17 Allergy Relief] sennosides 8.6 mg tablet 8.6 mg PO BID PRN 10/28/18 Articulating AFO #1 ea 06/25/19 acetaminophen 1,000 mg PO Q8H PRN #90 tab 09/08/20 celecoxib 200 mg PO BID PRN #60 cap 09/08/20 venlafaxine 75 mg tablet 225 mg PO DAILY tab 03/21/21 budesonide-formoterol [Symbicort] 2 puff INHALATION DAILY 04/25/21 bupropion HCl 150 mg 24 hr tablet, 150 mg PO QAM 08/25/21 extended release tramadol 50 mg tablet 50 mg PO Q8H PRN #60 tab 08/25/21 acetaminophen 1,000 mg PO Q8H PRN PRN #30 cap 08/29/21 celecoxib [Celebrex] 200 mg PO BID #60 cap 08/29/21 hydrocodone-acetaminophen 1 tab PO Q6H PRN #5 tab 08/29/21 Current Visit Medications: Current Medications Generic Name Dose Route Start Last Admin Trade Name Gosia PRN Reason Stop Dose Admin Acetaminophen 650 mg 08/29/21 10:51 Acetaminophen 325 Mg Tab PO Q4H PRN PRN Acetaminophen 1,000 mg 08/29/21 11:57 Acetaminophen 500 Mg Tab PO 08/29/21 18:00 PREOP PAT Celecoxib 400 mg 08/29/21 11:57 Celecoxib 200 Mg Cap PO 08/29/21 18:00 PREOP PAT Ringer's Solution 1,000 mls @ 80 mls/hr 08/29/21 06:00 IV 09/24/21 23:59 INFUSION PAT Cefazolin Sodium/Dextrose 2 gm in 50 mls @ 100 mls/hr 08/29/21 06:00 Ancef Duplex IVPB 08/29/21 16:00 PREOP PAT Ondansetron HCl 4 mg/ Sodium 52 mls @ 200 mls/hr 08/29/21 10:51 Chloride IVPB Q6H PRN PRN IV Miscellaneous Supplies 1 each 08/29/21 06:00 Iv Access IV 09/24/21 23:59 DIRECTED PAT Oxycodone HCl 5 mg 08/29/21 10:51 Oxycodone 5 Mg Tab PO Q3H PRN PRN Pain Sodium Chloride 0 ml 08/29/21 06:00 Normal Saline Flush 10 Ml Syr IV 09/24/21 23:59 PRN PRN Sodium Chloride 0 ml 08/29/21 06:00 Normal Saline 10 Ml Vial IJ 09/24/21 23:59 DIRECTED PRN Sterile Water 0 ml 08/29/21 06:00 Water,Injection,Sterile 10 Ml Vial IJ 09/24/21 23:59 DIRECTED PRN PFSH Active Problems Active Problems: Problem Status Onset Code 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 M19.279 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 Benign paroxysmal positional vertigo 11/25/14 H81.10 Biceps tendinitis of left shoulder 01/24/17 M75.22 Crushing injury of right foot and ankle 01/10/17 S97.01XA, S97.81XA Posterior tibial tendinitis, right leg 04/28/18 M76.821 Rotator cuff tendinitis 03/07/17 M75.80 Pain associated with accessory navicular bone of right foot 03/12/18 M79.671, Q74.2 History of total left knee replacement (TKR) Z96.652 Peroneal tendinitis of right lower leg M76.71 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, M94.9 S/P hernia repair ~02/05/19 Z98.890, Z87.19 Ventral hernia with obstruction K43.6 History of tonsillectomy and adenoidectomy Z98.890 History of appendectomy Z90.49 History of repair of hiatal hernia Z98.890, Z87.19 History of gastric stapling Z98.84 History of bilateral breast reduction surgery Z98.890 History of total abdominal hysterectomy Z90.710 Status post right foot surgery Z98.890 Asthma J45.909 Medical History Medical History Asthma History of anxiety History of depression Ventral hernia with obstruction Surgical History Surgical History History of appendectomy History of bilateral breast reduction surgery History of cosmetic surgery skin removal from arms and legs History of gastric stapling History of knee replacement History of repair of hiatal hernia History of tonsillectomy and adenoidectomy History of total abdominal hysterectomy Hx of colonoscopy S/P hernia repair (~02/05/19) Status post right foot surgery Excision accessory navicular with reattachment of posterior tibial tendon Trephination of calcaneus for heel fat pad mobility DOS: 05/09/18 Tobacco Smoking/Tobacco Use Status: Never Alcohol Alcohol Intake: current Alcohol intake frequency: holidays/special occasions only Alcohol type: wine Substance Use Substance use: Never Substance use type: does not use Vital Signs and Lab Results Vital Signs Most Recent Vital Signs in EMR: Most Recent Vital Signs Temp Pulse Resp BP Pulse Ox 36.5 C 81 16 127/88 98 08/29/21 12:17 08/29/21 12:17 08/29/21 12:17 08/29/21 12:17 08/29/21 12:17 Lab Results Blood Type / Crossmatch: No Data to Display Complete Blood Count: No Data to Display Complete Metabolic Panel: No Data to Display Liver Function Panel: No Data to Display Coagulation Panel: No Data to Display Cardiac Panel: No Data to Display Arterial Blood Gas: No Data to Display Venous Blood Gas: No Data to Display Pancreas Panel: No Data to Display Thyroid Panel: No Data to Display Infectious Disease: Coronavirus (COVID-19)(PCR) Negative (Negative) 08/26/21 09:44 08/26/21 Coronavirus 2019 Source Nasal/Nares 08/26/21 09:44 08/26/21 Blood Cultures: No Data to Display Toxicology Panel: No Data to Display Anesthesia Assessment and Plan Anesthesia History Personal History: PONV Family History: No Family History of Anesthesia Complications Exercise Tolerance Exercise Tolerance: Metabolic Equivalents>4 Pertinent Negatives Pertinent Negatives: No Symptoms of GERD, No Major Cardiovascular Symptoms or Complaints and No Major Pulmonary Symptoms or Complaints (Asthma last attack 3-4 months ago ) Cardiac & Pulmonary Exam Cardiac Exam: Normal S1/S2 Heart Sounds Pulmonary Exam: Clear Bilateral Breath Sounds and Unable to Assess Implantable Cardiac Device Does patient have a Pacemaker or an ICD?: No Airway Exam Known Difficult Airway: No Mallampati Class: 3 Mouth Opening: Normal (> 3cm) Thyromental Distance: Greater than 3 cm Neck Range of Motion: Full ROM Neck Circumference: Normal Teeth Condition: Normal Dentition and Removable Dentures/Plates Lower ASA Classification ASA Score: ASA 3 Emergency Case?: No NPO Status NPO Status: NPO Clears >2 hours, Solids >8 hours Anesthesia Plan Resuscitation Status: Full Code Anesthesia Technique: General Anesthesia Airway Planned: LMA Monitors Used: Standard Monitors
[2021-08-29] MEDS: Celecoxib 200 MG CAP 400 MG PO (12:51)
[2021-08-29] MEDS: Acetaminophen 500 MG TAB 1000 MG PO (12:52)
[2021-08-29] MEDS: Lactated Ringers 1,000 ML 80 ML IV (12:56)
[2021-08-29] MEDS: ceFAZolin 2 GM/50 ML BAG IVPB (13:14)
[2021-08-29] MEDS: Bupivacaine 0.5% Pres-Free 30 ML VIAL (14:07)
--- NOTE | 2021-08-29 14:50 | W.ANESPOSTOP ---
Postoperative Evaluation Date, Time and Location Date Performed: 08/29/21 Time Performed: 14:50 Patient Location: PACU Vital Signs Most Recent Imported Vital Signs: Most Recent Vital Signs Temp Pulse Resp BP Pulse Ox 36.4 C L 79 22 122/75 97 08/29/21 14:40 08/29/21 14:40 08/29/21 14:40 08/29/21 14:40 08/29/21 14:40 Pain Score Most Recent Pain Score: Most Recent Pain Score Pain Level 0 08/29/21 14:40 Assessment Mental Status: Awake (Alert & Oriented to Patient Baseline) Airway and Respiratory Function: Patent airway with normal (patient baseline) respiratory exam Cardiovascular Function: Hemodynamically Stable Hydration Status: Adequately Hydrated Nausea & Vomiting: No Nausea or Vomiting Pain: Pain is tolerable per patient Peripheral Nerve Block: Patient did not receive a nerve block
--- NOTE | 2021-08-29 20:32 | ROE_ITS ---
Date of service: 08/29/21 Time of Service: 14:07 Operative Note Operative Note DATE OF PROCEDURE: 08/29/21 PRE-OP DIAGNOSIS: Left Patellar Clunk POST-OP DIAGNOSIS: same PROCEDURE: Arthroscopic Synovectomy of Anterior Compartment, Lysis of Adhesions - LEFT KNEE SURGEON: Lan Solares ANESTHESIA TYPE: General LMA/ETT Refer to Anesthesia Record ESTIMATED BLOOD LOSS: 0 PATHOLOGY: none sent TOURNIQUET TIME: 0 COMPLICATIONS: None Patient was transported to: PACU Patient's condition: stable Indications: I have seen Faith in clinic for symptoms of patellar clunk of the knee following knee replacement surgery. She had similar findings in the past which respnded to arthroscopic intervention. However, the symptoms returned with painful clunking from flexion to extension. Nonoperative measures were exhausted but disability due to lack of motion persisted. I discussed knee arthroscopy with synovectomy with maniuplation with the patient. I reviewed the risks of the procedure to include, but not limited to, bleeding, infection, pain, continued stiffness, recurrence, blood clot. Despite these risks, the patient elected to proceed. Findings: There was some synovitis inflammatory tissue seen over the superior pole patella as well as the inferior pole which was resected. Additionally, there was some prominent cement seen within the notch which was removed in its entirety. Procedure Description: Faith was greeted in the preoperative holding area where the correct side was identified and marked. The consent was reviewed with the patient and signed. The history and physical was updated. All questions were answered. She was taken back to the operating room. The patient was placed into the supine position on the operating room table. All bony prominences were well padded. Prophylactic antibiotics in the form of Cefazolin were administered. The LEFT leg was then prepped with Chloraprep and draped in a standard fashion with stockinette and extremity drape. A timeout to confirm correct identity, side and site, procedure, allergies, anesthesia, and medical concerns was performed. The leg was placed into a pneumatic leg zepeda, SPIDER2. A standard lateral portal was made at the lateral border of the patella tendon in line with the inferior pole of the patella, soft spot. The skin and deep tissue was incised sharply and the blunt trochar was inserted atraumatically. At this point had visualization of the femoral component. A superolateral portal was then established with spinal needle localization just superior and lateral to the patella. A knife was taken down through the skin and soft tissue to enter the knee joint. Starting in the superior compartment above the femoral component and anterior to the femur I released all scarring between the anterior femoral synovium and the overlying extensor mechanism. This was taken through all of any noticeable scar tissue until the superior patellar pouch was fully released and mobile. I then focused around the patella where there was some notable scarring and synovitis seen. This was most notable superiorly and then at the inferior pole. A medial portal was also established to assist with circumferentially removing this tissue from around the patella. Further investigation was carried down anteriorly. The notch was inspected. There did seem to be some prominent synovitis within the notch itself which was resected using electrocautery. Interestingly, at the base of the synovitis seem to be some cement. It did seem to be mildly prominent and therefore I used a small osteotome and arthroscopic instruments to remove the cement from within the notch. Continue to debride some the anterior tissue so is able to fully see the inferior pole the patella and the patellar component. Electrocautery was used to the denervate periphery of the patella. The arthroscope was brought back into the suprapatellar pouch and the leg was in full extension. The knee was thoroughly irrigated with the arthroscopic fluid on high flow and pressure. Inflow was stopped and excess fluid was removed. The leg was removed from the spider leg zepeda the knee was taken through range of motion. I worked on getting into flexion and then extending the knee with and without pressure along the patella. I was unable to recreate any of her preoperative symptoms. The wounds were closed with 4-0 Nylon. 0.25% bupivacaine was injected around the portal sites and into the knee. The wounds were dressed with Xeroform, 4x4 gauze, ABD pad, Kerlix and an REBECCA wrap. A cryo- cuff was applied. The patient tolerated the procedure well and was returned to the Same Day Surgery area in a stable condition suffering no known complication..
== END 2021-08-29 16:48 | disposition home or self-care (01) ==
LOC: SUR 12:07
PROVIDERS: PCP Internal Medicine; Visit Provider Student in an Organized Health Care Education/Training Program
PROC: (CPT 29870; principal; 2021-08-29 15:30)
DX: T84.84XA Pain due to internal orthopedic prosthetic devices, implants and grafts, initial encounter (principal); M65.862 Other synovitis and tenosynovitis, left lower leg; J45.909 Unspecified asthma, uncomplicated; F41.9 Anxiety disorder, unspecified
CPT/HCPCS: 29876; J0131; J0690; J1100; J1200; J2250; J2405

== ENCOUNTER → 2021-09-12 09:14 | Outpatient (BNVA) | payer MEDICARE, OTHER, SELFPAY | PROVIDERS: PCP Internal Medicine; Referring Provider Internal Medicine | DX: Z47.89 Encounter for other orthopedic aftercare (principal); M25.862 Other specified joint disorders, left knee ==

== ENCOUNTER 2022-01-31 22:17 | Outpatient (REF) | payer MEDICARE, OTHER, SELFPAY ==
[2022-02-02 06:54] LABS: Vitamin D 25 Total 34.7 ng/mL (30-100)
== END 2022-01-31 22:18 | disposition home or self-care (01) ==
LOC: NCHCN 22:17
PROVIDERS: PCP Internal Medicine; Visit Provider Internal Medicine
DX: Z00.00 Encounter for general adult medical examination without abnormal findings (principal); F41.8 Other specified anxiety disorders
CPT/HCPCS: 82306

== ENCOUNTER → 2022-02-27 08:48 | Outpatient (BNVA) | payer MEDICARE, OTHER, SELFPAY | PROVIDERS: PCP Internal Medicine; Referring Provider Internal Medicine; Visit Provider Student in an Organized Health Care Education/Training Program | DX: M19.271 Secondary osteoarthritis, right ankle and foot (principal); V09.20XS Pedestrian injured in traffic accident involving unspecified motor vehicles, sequela; M96.0 Pseudarthrosis after fusion or arthrodesis; M25.862 Other specified joint disorders, left knee; S97.01XS Crushing injury of right ankle, sequela; S97.81XS Crushing injury of right foot, sequela; Z96.652 Presence of left artificial knee joint | CPT/HCPCS: 99212 ==

== ENCOUNTER 2022-02-28 15:42 | Outpatient (REF) | payer MEDICARE, OTHER, SELFPAY ==
[2022-02-28 16:23] LABS: HCT 37.9 % (36.0-46.0); HGB 11.7 g/dL (11.2-15.7); MCH 25.1 pg (27.0-33.0); MCHC 30.9 % (32.0-36.0); MCV 81 fL (80-95); MPV 11.7 fL (8.0-11.0); Platelet Count 263 10^3/uL (130-400); RBC 4.67 10^6/uL (3.93-5.22); RDW 16.1 % (11.7-14.6); RDW-SD 45.9 fL; WBC 6.82 10^3/uL (4.4-10.8)
[2022-02-28 16:46] LABS: ESR 46 mm/hr (0-30)
[2022-02-28 22:47] LABS: Rheumatoid Factor <8.6 IU/mL (<12.0)
[2022-03-01 09:16] LABS: Cyclic Citrullinated Peptide <2.5 U/mL (<5.0)
== END 2022-02-28 15:43 | disposition home or self-care (01) ==
LOC: NCHCN 15:42
PROVIDERS: PCP Internal Medicine; Visit Provider Internal Medicine
DX: M25.50 Pain in unspecified joint (principal); M79.641 Pain in right hand; M79.642 Pain in left hand
CPT/HCPCS: 85027; 85652; 86200; 86431

== ENCOUNTER → 2022-07-07 10:42 | Outpatient (BNVA) | payer MEDICARE, OTHER, SELFPAY | PROVIDERS: PCP Internal Medicine; Referring Provider Internal Medicine; Visit Provider Student in an Organized Health Care Education/Training Program | DX: M19.271 Secondary osteoarthritis, right ankle and foot (principal); M96.0 Pseudarthrosis after fusion or arthrodesis; M76.821 Posterior tibial tendinitis, right leg | CPT/HCPCS: 99213 ==

== ENCOUNTER 2022-08-04 10:44 | Outpatient (CLI) | payer MEDICARE, OTHER, SELFPAY ==
--- NOTE | 2022-08-04 10:27 | DI.RAD_ITS ---
Exam(s) XR FOOT RT COMPLETE EXAM: XR FOOT RT COMPLETE CLINICAL HISTORY: POST OP F./U. TECHNIQUE: 2D digital imaging was performed. Three views. COMPARISON: CR XR FOOT RT COMPLETE from 06/13/2021 FINDINGS: BONES: No acute fracture is present. No bony destructive lesion is seen. Heel spurs are noted. The bones appear diffusely osteoporotic. the 2 screws seen through the talocalcaneal joint has a been r emoved since the previous exam. A screw is now seen in the calcaneus. There is also been replacemen t of the previously noted seng at the calcaneal cuboid joint now with screw and plate fixation. T here appears to be fusion across the calcaneal cuboid as well as talocalcaneal joints. JOINTS: No dislocation present. SOFT TISSUE: Normal. IMPRESSION: Postsurgical changes. DATA REPOSITORY: RADIATION DOSE DELIVERED:
== END 2022-08-04 10:45 | disposition home or self-care (01) ==
LOC: DIORS 10:45
PROVIDERS: PCP Internal Medicine; Referring Provider Internal Medicine; Visit Provider Student in an Organized Health Care Education/Training Program
DX: Z98.890 Other specified postprocedural states (principal); M76.821 Posterior tibial tendinitis, right leg
CPT/HCPCS: 99213; 73630

== ENCOUNTER → 2022-09-18 15:18 | Outpatient (BNVA) | payer MEDICARE, OTHER, SELFPAY | PROVIDERS: PCP Internal Medicine; Referring Provider Internal Medicine; Visit Provider Student in an Organized Health Care Education/Training Program | DX: M19.271 Secondary osteoarthritis, right ankle and foot (principal); M96.0 Pseudarthrosis after fusion or arthrodesis; Z98.890 Other specified postprocedural states | CPT/HCPCS: 99213 ==

== ENCOUNTER 2022-12-04 15:32 | Outpatient (CLI) | payer MEDICARE, OTHER, SELFPAY ==
--- NOTE | 2022-12-04 15:15 | DI.RAD_ITS ---
Exam(s) XR FOOT RT COMPLETE EXAM: XR FOOT RT COMPLETE CLINICAL HISTORY: S/P R FOOT SURGERY. TECHNIQUE: 2D digital imaging was performed. COMPARISON: CR XR FOOT RT COMPLETE from 08/04/2022 FINDINGS: 3 views Again noted are the multilevel fusion hardware devices across the talocalcaneal articulation and the talonavicular joint. Appearance is similar to previous. There is also a single lateral to medial sc rew device in the mid aspect of the calcaneus again noted. There is a moderate size inferior calcane al spur again noted Some degenerative changes are noted in the tibiotalar joint as well as in the tarsometatarsal joints. No diastasis of the Lisfranc joint. No pes planus. No radiographic evidence of osteomyelitis. IMPRESSION: Stable appearance. DATA REPOSITORY: RADIATION DOSE DELIVERED:
== END 2022-12-04 15:33 | disposition home or self-care (01) ==
LOC: DIORS 15:32
PROVIDERS: PCP Internal Medicine; Referring Provider Internal Medicine; Visit Provider Student in an Organized Health Care Education/Training Program
DX: M96.0 Pseudarthrosis after fusion or arthrodesis (principal)
CPT/HCPCS: 99213; 73630

== ENCOUNTER 2023-04-05 19:25 | Outpatient (REF) | payer MEDICARE, SELFPAY | END 2023-04-05 19:26 | disposition home or self-care (01) | LOC: NCHCN 19:25 | PROVIDERS: PCP Internal Medicine; Visit Provider Family Medicine | DX: R30.0 Dysuria (principal) | CPT/HCPCS: 87077; 87086; 87186 ==

== ENCOUNTER 2023-04-23 10:28 | Outpatient (REF) | payer MEDICARE, SELFPAY ==
[2023-04-23 12:39] LABS: Bilirubin Small (Negative); Blood Large (Negative); Clarity Cloudy (Clear); Glucose Negative (Negative); Ketones 15 mg/dL (Negative); Leukocyte Esterase Moderate (Negative); Nitrite Positive (Negative); Specific Gravity >= 1.030 (1.005-1.025); pH 5.5 (5-8)
[2023-04-23 12:47] LABS: C & S Indicated? Yes; WBC >50 HPF (0-5)
== END 2023-04-23 10:29 | disposition home or self-care (01) ==
LOC: LBN 10:28
PROVIDERS: PCP Internal Medicine; Visit Provider Nurse Practitioner Family
DX: R30.0 Dysuria (principal); R39.15 Urgency of urination; R31.9 Hematuria, unspecified; N39.0 Urinary tract infection, site not specified
CPT/HCPCS: 87077; 81003; 81015; 87086; 87186

== ENCOUNTER 2023-05-01 13:46 | Outpatient (REF) | payer MEDICARE, SELFPAY ==
[2023-05-01 20:49] LABS: Bilirubin Small (Negative); Blood Negative (Negative); Clarity Cloudy (Clear); Glucose Negative (Negative); Ketones 15 mg/dL (Negative); Leukocyte Esterase Moderate (Negative); Nitrite Positive (Negative); Specific Gravity >= 1.030 (1.005-1.025)
[2023-05-01 21:21] LABS: Bacteria Many HPF (Negative); C & S Indicated? Yes; Crystals Few Uric Acid HPF (Negative); Epithelial Cells Rare HPF (Negative); Mucus Heavy (Negative); Other Cells Negative (Negative); RBC Negative HPF (0-2); WBC 20-50 HPF (0-5)
== END 2023-05-01 13:47 | disposition home or self-care (01) ==
LOC: NCHCN 13:46
PROVIDERS: PCP Internal Medicine; Visit Provider Internal Medicine
DX: R30.0 Dysuria (principal)
CPT/HCPCS: 87077; 81003; 81015; 87086; 87186

== ENCOUNTER → 2023-05-04 01:12 | Outpatient (CLI) | payer MEDICARE, SELFPAY ==
--- NOTE | 2023-05-04 | DI.US_ITS ---
Exam(s) US RENAL EXAM: US RENAL CLINICAL HISTORY: HX OF RECURRENT URINARY TRACT INFECTION, Z87.440. TECHNIQUE: Aguilar scale, color and spectral Doppler were used. COMPARISON: CT CT ABDOMEN PELVIS W from 05/16/2019 FINDINGS: Renal size in cm: Right: 9.1 left: 9.0 Echogenicity: Normal Hydronephrosis: No Cyst or mass: No Nephrolithiasis: No Bladder:Nearly empty. Not well evaluated. Prevoid vol:7 cc Postvoid vol:Not performed IMPRESSION: Normal appearing kidneys. Bladder not evaluated. DATA REPOSITORY:
== END ==
PROVIDERS: PCP Internal Medicine; Visit Provider Internal Medicine
DX: Z87.440 Personal history of urinary (tract) infections (principal)
CPT/HCPCS: 76770

== ENCOUNTER → 2023-05-21 01:39 | Outpatient (CLI) | payer MEDICARE, SELFPAY ==
--- NOTE | 2023-05-21 08:50 | DI.MAMMO_ITS ---
Exam(s) MAMMO SCREENING EXAM: MAMMO SCREENING CLINICAL HISTORY: SCREENING FOR BREAST CANCER Z12.39 TECHNIQUE: Mammograms were interpreted according to the usual protocol including computer analysis w [employer] CAD system, tomosynthesis and C-view imaging. COMPARISON: 2014 through 2020 FINDINGS: The breasts are composed of mainly fatty density , Breast Density category A. No suspicious masses or suspicious microcalcifications are seen. No skin thickening or abnormal axillary lymph nodes are seen. There has been no significant change from prior exams. IMPRESSION: BI-RADS Category 1, Negative mammogram Yearly screening mammography is recommended. Breast Density - Category A, fatty density. A negative radiographic report should not delay biopsy if a dominant or clinically suspicious mass is present. Up to ten percent of cancers are not identified on mammography. A negative report may reinforce clinical impression. Adenosis and dense breasts may obscure an underlying neoplasm. False positive reports average 6 to 10%. Patient will receive a letter notifying them of these results.
== END ==
PROVIDERS: PCP Internal Medicine; Visit Provider Internal Medicine
DX: Z12.31 Encounter for screening mammogram for malignant neoplasm of breast (principal)
CPT/HCPCS: 77063; 77067

== ENCOUNTER → 2023-05-24 07:53 | Outpatient (BNVA) | payer MEDICARE, SELFPAY | PROVIDERS: PCP Internal Medicine; Referring Provider Internal Medicine; Visit Provider Student in an Organized Health Care Education/Training Program | DX: M76.71 Peroneal tendinitis, right leg (principal); M72.2 Plantar fascial fibromatosis | CPT/HCPCS: 99214 ==

== ENCOUNTER 2023-06-25 01:20 | Outpatient (CLI) | payer MEDICARE, SELFPAY ==
--- NOTE | 2023-06-25 07:15 | DI.MRI_ITS ---
Exam(s) MR LOWER JOINT RT WO EXAM: MR LOWER JOINT RT WO CLINICAL HISTORY: PAIN,PERONEAL TENDON TEAR, S86.319A TECHNIQUE: Multiplanar multisequence MRI was performed without intravenous contrast. CR XR ANKLE RT 2V from 01/24/2021 CR XR FOOT RT COMPLETE from 12/04/2022 FINDINGS: BONES/JOINTS: Artifact secondary to fusion hardware at calcaneal cuboid and talonavicular joints. No fracture or contusion pattern. No bone lesions identified. The talar dome shows a small defect medi ally, unchanged from 2019.. The ankle mortise is maintained. No joint effusion is present. Ossicle beneath medial malleolus without surrounding abnormal signal. LIGAMENTS: The tibiofibular and calcaneofibular ligaments are intact. The talofibular ligaments are i ntact. The deltoid ligament is intact. The syndesmosis is unremarkable. Sinus tarsi is normal. MUSCULOTENDINOUS STRUCTURES: Achilles tendon: Unremarkable. Plantar fascia: Unremarkable. Anterior Extensor tendons: Unremarkable. Posterior Tibialis: Unremarkable. Flexor Digitorum longus: Unremarkable. Flexor Hallucis longus: Unremarkable. Peroneus longus: Unremarkable. Peroneus brevis:Unremarkable. SOFT TISSUES: Unremarkable. IMPRESSION: No tendon or ligament abnormality. Fusion hardware. A stable small defect medial talar dome. DATA REPOSITORY:
== END 2023-06-25 01:40 ==
LOC: DI 01:21
PROVIDERS: PCP Internal Medicine; Visit Provider Student in an Organized Health Care Education/Training Program
DX: M79.605 Pain in left leg (principal); Z98.890 Other specified postprocedural states
CPT/HCPCS: 73721

== ENCOUNTER → 2023-07-05 09:26 | Outpatient (BNVA) | payer MEDICARE, SELFPAY | PROVIDERS: PCP Internal Medicine; Referring Provider Internal Medicine; Visit Provider Student in an Organized Health Care Education/Training Program | DX: M25.571 Pain in right ankle and joints of right foot (principal); S97.01XS Crushing injury of right ankle, sequela; S97.81XS Crushing injury of right foot, sequela | CPT/HCPCS: 99213 ==

== ENCOUNTER 2023-09-20 18:10 | Emergency (ER) | payer MEDICARE, SELFPAY ==
[2023-09-20] VITALS (30 sets, daily range): BP systolic 114–149; BP diastolic 49–102; PULSE 78–92; RESP 15–22; TEMP 36.9; O2SAT 93–99
--- NOTE | 2023-09-20 18:15 | RT.EKG_ITS ---
APPROVED REPORT Exam: Resting ECG Reason for Exam: Near Syncope Patient Location: E HR:94 bpm ECG Measurements Heart Rate 94 AXIS HI 163 P 21 QRSd 71 QRS 40 QT 365 T 69 QTc 456 Conclusion Sinus rhythm normal axis no acute st changes
[2023-09-20] MEDS: Normal Saline 1,000 ML 1000 ML IV ×2 (18:46→20:04)
[2023-09-20] MEDS: Ondansetron 4 MG/2 ML VIAL IVP (18:46)
--- NOTE | 2023-09-20 18:47 | ED.GENADUL_ITS ---
HPI General Date/Time Provider Initiated Documentation: 09/20/23 18:38 . Limitations to Documentation: no limitations . Information obtained by: patient . HPI Narrative: 58-year-old female with past medical history of multiple orthopedic surgeries, gastric stapling presents for evaluation of near syncope. Patient reports that for the last week she has not been feeling well. She has been having fever, chills, nausea vomiting and diarrhea. The vomiting and diarrhea resolved yesterday and she has been able to tolerate a little bit of food by mouth. She has not had decreased urine output. No dysuria. She has not measured a temperature at home, but has felt hot and had chills. She states that this stopped a couple of days ago. No known sick contacts. Tested herself for COVID at home and this was negative. Related Data Home Medications Medication Instructions Recorded Confirmed cyanocobalamin (vitamin B-12) 250 1 tab PO DAILY 11/25/14 09/20/23 mcg tablet montelukast 10 mg tablet 10 mg PO HS 11/25/14 09/20/23 (Singulair) vitamin B complex (B Complex 1 ea PO DAILY 11/25/14 09/20/23 tablet,extended release) fluticasone propionate 50 9.9 ml NS BID 05/28/17 09/20/23 mcg/actuation nasal spray,suspension (Flonase Allergy Relief) sennosides 8.6 mg tablet (Senna 8.6 mg PO BID PRN 10/28/18 09/20/23 Lax) Articulating AFO #1 ea 06/25/19 07/06/23 acetaminophen 500 mg tablet 1,000 mg (2 x 500 mg) PO Q8H PRN 09/08/20 07/06/23 pain #90 tabs venlafaxine 75 mg tablet 225 mg PO DAILY 03/21/21 09/20/23 budesonide-formoterol HFA 160 2 puff inhalation DAILY 04/25/21 09/20/23 mcg-4.5 mcg/actuation aerosol inhaler (Symbicort) tramadol 50 mg tablet 50 mg PO Q8H PRN pain #60 tabs 08/25/21 09/20/23 acetaminophen 500 mg capsule 1,000 mg (2 x 500 mg) PO Q8H PRN 08/29/21 09/20/23 PRN #30 caps celecoxib 200 mg capsule 100 mg PO BID pain 02/27/22 09/20/23 diclofenac sodium 3 % topical gel 1 applic topical BID 02/27/22 09/20/23 quetiapine 25 mg tablet 25 mg PO DAILY 09/18/22 09/20/23 fluconazole 150 mg tablet 150 mg PO ONCE #2 tabs 04/23/23 09/20/23 (Diflucan) phenazopyridine 100 mg tablet 100 mg PO TID PRN pain 6 doses #6 04/23/23 09/20/23 (Pyridium) tabs ondansetron 4 mg disintegrating 4 mg PO Q6H PRN nausea and 09/20/23 tablet vomiting #30 tabs Previous Rx's Medication Instructions Recorded Articulating AFO #1 ea 06/25/19 acetaminophen 500 mg tablet 1,000 mg (2 x 500 mg) PO Q8H PRN 09/08/20 pain #90 tabs tramadol 50 mg tablet 50 mg PO Q8H PRN pain #60 tabs 08/25/21 acetaminophen 500 mg capsule 1,000 mg (2 x 500 mg) PO Q8H PRN 08/29/21 PRN #30 caps fluconazole 150 mg tablet 150 mg PO ONCE #2 tabs 04/23/23 (Diflucan) phenazopyridine 100 mg tablet 100 mg PO TID PRN pain 6 doses #6 04/23/23 (Pyridium) tabs ondansetron 4 mg disintegrating 4 mg PO Q6H PRN nausea and 09/20/23 tablet vomiting #30 tabs Allergies Allergy/AdvReac Type Severity Reaction Status Date / Time adhesive tape Allergy Severe Skin Rash Verified 09/20/23 18:19 latex Allergy Severe Hives, Verified 09/20/23 18:19 blisters, rash meclizine Allergy Severe unresponsiv Verified 09/20/23 18:19 e ibuprofen AdvReac Unknown Other (See Verified 09/20/23 18:19 Comment) General Stated Complaint: Nausea/Vomit/Diar YEVGENIY: 3 Exam Narrative Exam Narrative: Review of Systems: All systems reviewed & are unremarkable except as noted in HPI and below Well-developed, ill-appearing NACT PERRL, normal conjunctiva Dry mucous membranes RRR Unlabored respiratory effort clear breath sounds bilaterally, Nondistended abdomen , nontender Extremities w/o deformity, no cyanosis, no edema No rashes or lesions. no focal neurologic deficits Appropriate mood and affect Course Vital Signs Vital signs: Vital Signs Temperature 36.9 C 09/20/23 18:15 Pulse 78 09/20/23 18:15 Respiratory Rate 18 09/20/23 18:15 Blood Pressure 147/101 H 09/20/23 18:15 Pulse Oximetry 95 09/20/23 18:15 Temperature 36.9 C 09/20/23 18:15 Temperature Source Temporal Artery Scan 09/20/23 18:15 Pulse 78 09/20/23 18:15 Respiratory Rate 18 09/20/23 18:15 Respiratory Effort Normal 09/20/23 18:19 Blood Pressure 147/101 H 09/20/23 18:15 Pulse Oximetry 95 09/20/23 18:15 Oxygen Delivery Method Room Air 09/20/23 18:15 Oxygen Flow Rate 0 09/20/23 18:15 Medical Decision Making Emergent evaluation of syncope. Patient is hemodynamically stable. She did not fully syncopized, and the symptoms sound related to orthostatic episode or vasovagal episode. She appears clinically dehydrated. Her EKG is unremarkable without acute findings. Will check lab work, resuscitate with IV fluids and antiemetics. 2000: Labwork reviewed. Evidence of heme concentration on CBC. Potassium 2.9. IV replacement given. Creatinine is not elevated. Will continue fluid resus citation. Patient reports after first IV fluid bolus that she is feeling better. Flu testing is positive. The patient is outside the window for Tamiflu given the duration of her symptoms. After 2 L of IV fluid, the patient feels much better and she is tolerating p.o. She has been provided with Zofran and instructions for aggressive hydration. Return precautions advised. Medical Records Medical records reviewed: Yes I reviewed the patient's medical records. Lab Data Lab results reviewed: Yes I reviewed the patient's lab results. 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 Solares Peroneal tendinitis of right lower leg (Acute) Osteochondral talar dome lesion (Acute) S/P hernia repair (Acute ~02/05/19) Ventral hernia with obstruction (Acute) History of tonsillectomy and adenoidectomy (Chronic) History of appendectomy (Chronic) History of repair of hiatal hernia (Chronic) History of gastric stapling (Chronic) History of bilateral breast reduction surgery (Chronic) History of total abdominal hysterectomy (Chronic) Status post right foot surgery (Chronic) Excision accessory navicular with reattachment of posterior tibial tendon Trephination of calcaneus for heel fat pad mobility DOS: 05/09/18 Asthma (Chronic) Medical History History of anxiety History of depression Surgical History Hx of colonoscopy History of cosmetic surgery skin removal from arms and legs History of knee replacement Family History Other Diabetes Heart disease Kidney disease Social History Smoking/Tobacco Use Status: Never Smoking risk assessment performed?: Yes Alcohol Intake: current Alcohol Intake frequency: holidays/special occasions only Alcohol type: wine Drug use: Never Substance use type: does not use Household members: spouse Housing: house Current gender identity: female Do you feel safe at home: Yes Do you feel safe in your relationship?: Yes Discharge Plan Disposition Patient Disposition: Home Condition: Good Discharge Details Clinical Impression: Influenza A, Dehydration, Hypokalemia Primary Care Provider: Avery Caballero ED Provider: Anmol Woodard Home Meds and New Rx's Prescriptions: New ondansetron 4 mg tablet,disintegrating 4 mg PO Q6H PRN (Reason: nausea and vomiting) Qty: 30 0RF No Action sennosides [Senna Lax] 8.6 mg tablet 8.6 mg PO BID PRN venlafaxine 75 mg tablet 225 mg PO DAILY tramadol 50 mg tablet 50 mg PO Q8H PRN (Reason: pain) Qty: 60 0RF quetiapine 25 mg tablet 25 mg PO DAILY fluconazole [Diflucan] 150 mg tablet 150 mg PO ONCE Qty: 2 0RF Rx Instructions: Administer 1 tab once. If symptoms persist may repeat in 3 days phenazopyridine [Pyridium] 100 mg tablet 100 mg PO TID PRN (Reason: pain) Qty: 6 0RF diclofenac sodium 3 % gel 1 applic topical BID celecoxib 200 mg capsule 100 mg PO BID B Complex 1 EACH tablet extended release 1 ea PO DAILY montelukast [Singulair] 10 MG tablet 10 mg PO HS cyanocobalamin (vitamin B-12) 250 MCG tablet 1 tab PO DAILY fluticasone propionate [Flonase Allergy Relief] 9.9 ML spray,suspension 9.9 ml NS BID (DME) Articulating AFO Qty: 1 0RF Rx Instructions: As directed acetaminophen 500 mg tablet 1,000 mg PO Q8H PRN (Reason: pain) Qty: 90 3RF budesonide-formoterol [Symbicort] 160-4.5 mcg/actuation HFA aerosol inhaler 2 puff INHALATION DAILY Patient Comments: INHALE 2 PUFFS BY MOUTH TWICE A DAY acetaminophen 500 mg capsule 1,000 mg PO Q8H PRN PRNQty: 30 0RF Discharge Instructions Instructions: Dehydration (ED) Additional Instructions: Please drink lots of water. Monitor symptoms. Follow-up with your PCP as needed
[2023-09-20 18:55] LABS: Abs Immature Grans 0.03 10^3/uL (0.0-0.06); Absolute Basophil Count 0.04 10^3/uL (0.0-0.2); Absolute Eosinophil Count 0.37 10^3/uL (0.0-0.7); Absolute Lymphocyte Count 2.16 10^3/uL (1.2-3.4); Absolute Monocyte Count 0.66 10^3/uL (0.1-0.8); Basophils % 0.4; Eosinophils % 3.6; HCT 46.9 % (36.0-46.0); HGB 16.1 g/dL (11.2-15.7); Immature Grans % 0.3; Lymphocytes % 20.8; MCH 28.8 pg (27.0-33.0); MCHC 34.3 % (32.0-36.0); MCV 84 fL (80-95); MPV 12.1 fL (8.0-11.0); Monocytes % 6.4; Neutrophils % 68.5; Platelet Count 224 10^3/uL (130-400); RBC 5.59 10^6/uL (3.93-5.22); RDW 12.5 % (11.7-14.6); RDW-SD 38.1 fL; WBC 10.36 10^3/uL (4.4-10.8)
[2023-09-20 19:13] LABS: ALT 42 U/L (14-59); AST 46 U/L (15-37); Albumin 3.6 g/dL (3.4-5.0); Alkaline Phosphatase 112 U/L (46-116); Anion Gap 13.7 mmol/L (3-11); BUN 17 mg/dL (7-18); Bilirubin, Total 0.5 mg/dL (0.2-1.0); CO2 24.3 mmol/L (21.0-32.0); CREATININE 0.8 mg/dL (0.55-1.02); Calcium 9.5 mg/dL (8.5-10.1); Chloride 102 mmol/L (98-107); Glucose 139 mg/dL (74-106); Magnesium 1.7 mg/dL (1.8-2.4); Sodium 140 mmol/L (136-145); Total Protein 8.2 g/dL (6.4-8.2)
[2023-09-20 19:16] LABS: Lipase 54 U/L (16-77); Potassium 2.9 mmol/L (3.5-5.1); Troponin I < 50 ng/L (< or =60)
[2023-09-20] MEDS: POTASSIUM CHLORIDE 10 MEQ/100 ML BAG 100 MEQ IVPB (20:02)
[2023-09-20 20:31] LABS: COVID-19 PCR Negative (Negative); Influenza A PCR Positive (Negative); Influenza B PCR Negative (Negative); RSV PCR Negative (Negative)
[2023-09-20 20:32] LABS: Source NASOPHARYNX
[2023-09-20 20:40] LABS: Bilirubin Small (Negative); Blood Negative (Negative); Clarity Clear (Clear); Glucose Negative (Negative); Ketones 40 mg/dL (Negative); Leukocyte Esterase Negative (Negative); Nitrite Negative (Negative); Specific Gravity >= 1.030 (1.005-1.025); pH 5.5 (5-8)
[2023-09-20] MEDS: Ondansetron O.D.T. 4 MG TABEF, 3 TABS/BTL PO (21:54)
== END 2023-09-20 21:54 | disposition home or self-care (01) ==
PROVIDERS: Emergency Provider Emergency Medicine; PCP Internal Medicine
DX: J10.1 Influenza due to other identified influenza virus with other respiratory manifestations (principal); R55 Syncope and collapse; E86.0 Dehydration; E87.6 Hypokalemia; Z11.52 Encounter for screening for COVID-19; Z98.84 Bariatric surgery status
CPT/HCPCS: 80053; 83690; 87637; 93005; 96361; 96365; 96375; 99284; 81003; 83735; 84484; 85025; 93010; J2405; J3480

== ENCOUNTER 2024-04-08 18:05 | Outpatient (REF) | payer MEDICARE, SELFPAY ==
--- OUTSIDE RECORDS SUMMARY | 2024-04-08 18:07 | XMS_ITS | Encounter Summary ---
[place] [address] Care Team Providers Care Community Program Assistant Name Role Phone Avery Caballero MD Primary Care Provider Encounter Details Date Type Department Care Team (Latest Contact Info) Description 06/28/2022 Travel Social History Tobacco Use Types Packs/Day Years Used Date Smoking Tobacco: Never Smokeless Tobacco: Never Alcohol Use Standard Drinks/Week Comments No 0 (1 standard drink = 0.6 oz pur e alcohol) Sex and Gender Information Value Date Recorded Sex Assigned at Not on file Gender Identity Not on file Sexual Orientation Not on file documented as of this encounter Plan of Treatment Not on file documented as of this encounter Visit Diagnoses Not on filedocumented in this encounter Care Teams Community Program Assistant Relationship Specialty Start Date End Date Avery Caballero MD [address] [place] [address] PCP - General 04/15/14 documented as of this encounter
--- OUTSIDE RECORDS SUMMARY | 2024-04-08 18:07 | XMS_ITS | Encounter Summary ---
[place] [address] Care Team Providers Care Mine Motor Operator Name Role Phone Avery Caballero MD Primary Care Provider [phone] Reason for Referral * Diagnostic Test (Routine) - Closed Specialty Diagnoses / Procedures Referred By Contac t Referred To Contact Radiology Diagnoses Status post ankle arthrodesis Procedures CT Foot wo Contrast Right (Generic) Jacinda Benoit APRN [facility] [place] [address] [facility] [place] [address] Referral ID Status Reason Start Date Expiration Date V isits Requested Visits Authorized [id number] Closed Specialty Service Requested 05/16/2022 11/14/2023 1 1 Reason for Visit * Diagnostic Test (Routine) - Closed Specialty Diagnoses / Procedures Referred By Contac t Referred To Contact Radiology Diagnoses Status post ankle arthrodesis Procedures CT Foot wo Contrast Right (Generic) Jacinda Benoit APRN [facility] [place] [address] [facility] [place] [address] Referral ID Status Reason Start Date Expiration Date V isits Requested Visits Authorized [id number] Closed Specialty Service Requested 05/16/2022 11/14/2023 1 1 Encounter Details Date Type Department Care Team (Latest Contact Info) Description 06/28/2022 10:41 AM EDT - 06/28/2022 11:59 PM EDT Hospital En[place] [address] Jacinda Benoit APRN [facility] DR [place] [address] Status post ankle arthrodesis Discharge Disposition: Home Social History Tobacco Use Types Packs/Day Years Used Date Smoking Tobacco: Never Smokeless Tobacco: Never Alcohol Use Standard Drinks/Week Comments No 0 (1 standard drink = 0.6 oz pur e alcohol) Sex and Gender Information Value Date Recorded Sex Assigned at Not on file Gender Identity Not on file Sexual Orientation Not on file documented as of this encounter Medications at Time of Discharge Medication Sig Dispensed Refills Start Date End Date venlafaxine (EFFEXOR-XR) 150 mg Capsule, Sust. Release 24 hr 05/02/2022 venlafaxine XR (Effexor-XR) 75 mg Capsule, Sust. Release 24 hr 05/01/2022 gabapentin (Neurontin) 100 mg Capsule Take 1 capsule by mouth 3 times daily. 60 capsule 06/13/2022 cephALEXin (Keflex) 500 mg Capsule Take 1 capsule by mouth 4 times daily. 40 capsule 06/13/2022 fluconazole (Diflucan) 150 mg Tablet Take one may repeat once 2 tablet 06/13/2022 ergocalciferoL, vitamin D2, (vitamin D2) 50,000 unit Capsule Take 1 capsule by mouth once a week. 12 capsule 3 04/03/2022 traMADoL (Ultram) 50 mg Tablet Take 50 mg by mouth as needed. 08/26/2021 Symbicort 160-4.5 mcg/actuation HFA Aerosol Inhaler INHALE 2 PUFFS BY MOUTH TWICE A DAY 04/07/2021 celecoxib (CELEBREX) 100 mg Capsule 3 04/22/2019 PROVENTIL HFA 90 mcg/actuation HFA Aerosol Inhaler 03/21/2019 ALBUTEROL INHL Inhale 1 puff into the lungs. cyanocobalamin 500 mcg Tablet Take 500 mcg by mouth daily. acetaminophen (TYLENOL) 325 mg Tablet Take 2 tablets by mouth every 6 hours as needed for Pain. 30 tablet 1 07/23/2015 senna (SENOKOT) 8.6 mg Tablet Take 1 tablet by mouth 2 times daily. montelukast (SINGULAIR) 10 mg tablet Take 10 mg by mouth nightly. fluticasone (FLONASE) 50 mcg/actuation nasal spray 1 spray daily. Cholecalciferol, Vitamin D3, 2,000 unit Cap Take by mouth. FERROUS FUMARATE/VIT BCOMP&C (SUPER B COMPLEX ORAL) Take by mouth. Kpiezhhwcjdyi-Pv-Iuws-Mi nerals Tab Take by mouth. Women's one a day gummy documented as of this encounter Plan of Treatment Not on file documented as of this encounter Procedures Procedure Name Priority Date/Time Associated Diagnosis Comments CT FOOT WO CONTRAST RIGHT Routine 06/28/2022 11:15 AM EDT Status post ankle arthrodesis documented in this encounter Results * CT Foot wo Contrast Right (Generic) (06/28/2022 11:15 AM EDT) Anatomical Region Laterality Modality Foot Right Computed Tomogra phy Impressions 06/28/2022 11:01 PM EDT ? Revision of triple arthrodesis. Thank you for letting us participate in the care of this patient. ??If you are a health care provider and have any questions regarding this report, please contact the number below. ??For patients who have questions please contact the health pediatric acute care unit nurse that requested your imaging first. ? Electronically signed by: Taisha Dunbar MD, [facility] ([phone]), at 06/28/2022 11:01 PM Narrative 06/28/2022 11:01 PM EDT EXAMINATION: CT FOOT WO CONTRAST RIGHT (GENERIC) CLINICAL HISTORY: right foot revision calcaneous revision arthrodesis ??with fat pad reconstruction, non-weight bearing, ? further consolidation revision arthrodesis entered by ordering service TECHNIQUE: 0.63 mm non-contrast axial CT images of the [ ] were acquired. Sagittal and coronal reformats [and 3D models] were created. COMPARISON: None FINDINGS: Recent surgical history: 1.??Right foot hardware removal 2.??Right foot calcaneocuboid arthrodesis revision 3.??Right foot plantar fat pad anchoring with soft tissue rearrangement to transfer the hypermobile fat pad laterally and anchor to the calcaneus OSSEOUS STRUCTURES:JOINTS: Calcaneus-interval explant of 2 calcaneal screws. Subtalar joint- *Posterior subtalar joint-partial obliteration of joint space. The lateral segment of posterior subtalar joint space remains visible. *Medial subtalar joint-unchanged joint space. Calcaneal cuboid joint - small foci of osseous bridging. The inferior joint space remains visible Talonavicular joint-obliterated medial joint space with uncomplicated fusion hardware. The superior joint space remains visible. Tibial talar joint-congruent. No large effusion. Tarsometatarsal and naviculocuneiform joints - intact. TENDONS: No displaced tendon seen. MUSCLES: ?? Normal bulk. SOFT TISSUES: ?? No soft tissue air or fluid collection Procedure Note Taisha Dunbar MD - 06/28/2022 EXAMINATION: CT FOOT WO CONTRAST RIGHT (GENERIC) CLINICAL HISTORY: right foot revision calcaneous revision arthrodesiswith fat pad reconstruction, non-weight bearing, ? further consolidation revision arthrodesis entered by ordering service TECHNIQUE: 0.63 mm non-contrast axial CT images of the [ ] wereacquired. Sagittal and coronal reformats [and 3D models] were created. COMPARISON: None FINDINGS: Recent surgical history: 1.??Right foot hardware removal 2.??Right foot calcaneocuboid arthrodesis revision 3.??Right foot plantar fat pad anchoring with soft tissue rearrangementto transfer the hypermobile fat pad laterally and anchor to the calcaneus OSSEOUS STRUCTURES:JOINTS: Calcaneus-interval explant of 2 calcaneal screws. Subtalar joint- *Posterior subtalar joint-partial obliteration of joint space. Thelateral segment of posterior subtalar joint space remains visible. *Medial subtalar joint-unchanged joint space. Calcaneal cuboid joint - small foci of osseous bridging. The inferiorjoint space remains visible Talonavicular joint-obliterated medial joint space with uncomplicatedfusion hardware. The superior joint space remains visible. Tibial talar joint-congruent. No large effusion. Tarsometatarsal and naviculocuneiform joints - intact. TENDONS: No displaced tendon seen. MUSCLES: Normal bulk. SOFT TISSUES: No soft tissue air or fluid collection IMPRESSION Revision of triple arthrodesis. Thank you for letting us participate in the care of this patient. If youare a health care provider and have any questions regarding this report,please contact the number below. For patients who have questions please contactthe health pediatric acute care unit nurse that requested your imaging first. Electronically signed by: Taisha Dunbar MD, [facility]([phone]), at 06/28/2022 11:01 PM Jacinda Benoit GRADES 1 THRU [address] ORDERABLES documented in this encounter Visit Diagnoses Diagnosis Status post ankle arthrodesis Other postprocedural status documented in this encounter Care Teams Mine Motor Operator Relationship Specialty Start Date End Date Avery Caballero MD [address] [place] [id number] PCP - General 04/15/14 documented as of this encounter
--- OUTSIDE RECORDS SUMMARY | 2024-04-08 18:07 | XMS_ITS | Encounter Summary ---
Author Organization [facility] [place] [address] Care Team Providers Care Equipment Records Supervisor Name Role Phone Avery Caballero MD Primary Care Provider [phone] Encounter Details Date Type Department Care Team (Latest Contact Info) Description 05/16/2022 11:50 AM EDT - 05/16/2022 11:59 PM EDT Hospital Encounter XRay at [address] [place] [address] Jacinda Benoit APRN [facility] [place] [address] Right foot pain; Status post ankle arthrodesis Discharge Disposition: Home [...] mg Capsule, Sust. Release 24 hr 05/01/2022 ergocalciferoL, vitamin D2, (vitamin D2) 50,000 unit [...] (SUPER B COMPLEX ORAL) Take by mouth. Warumgplttovo-Up-Ltfe-M inerals Tab Take by mouth. Women's one a day gummy gabapentin (Neurontin) 100 mg Capsule Take 1 capsule by mouth 3 times daily. 60 capsule 05/16/2022 06/13/2022 aspirin EC 81 mg Tablet, Delayed Release (E.C.) Take 1 tablet by mouth daily for 30 days. 30 tablet 05/04/2022 06/03/2022 traMADoL (Ultram) 50 mg Tablet Take 1 tablet by mouth every 6 hours as needed for Pain. 10 tablet 05/04/2022 06/13/2022 buPROPion XL (Wellbutrin XL) 150 mg Tablet Extended Release 24 hr 06/17/2021 06/21/2022 Venlafaxine 225 mg Tablet Extended Rel 24 hr daily. 4 04/24/2019 06/13/2022 documented as of this encounter Plan of Treatment Not on file documented as of this encounter Procedures Procedure Name Priority Date/Time Associated Diagnosis Comments XR FOOT MIN 3 VIEWS RIGHT Routine 05/16/2022 12:01 PM EDT Right foot pain Status post ankle arthrodesis documented in this encounter Results * XR Foot Min 3 views Right (Generic) (05/16/2022 12:01 PM EDT) Anatomical Region Laterality Modality Foot Right Digital Radiogra phy Impressions 05/16/2022 2:32 PM EDT 1. ??Status post hardware removal from the posterior subtalar joint and revision of fusion hardware across the Chopart joint. No hardware complication. There is progressive narrowing and obliteration of the calcaneal cuboid joint space. There is a narrowed talonavicular joint space, but the joint space lucency remains visible. 2. ??There is narrowing of the posterior subtalar joint space, but the joint space lucency remains faintly visible. 3. ??The soft tissue swelling of the heel. Thank you for letting us participate in the care of this patient. ??If you are a health care provider and have any questions regarding this report, please contact the number below. ??For patients who have questions please contact the health career services representative that requested your imaging first. ? Electronically signed by: Daniela Funes MD, [facility] ([phone]), at 05/16/2022 2:32 PM Narrative 05/16/2022 2:32 PM EDT EXAMINATION: XR FOOT MIN 3 VIEWS RIGHT (GENERIC) CLINICAL HISTORY: Rt foot RILEY and arthrodesis. (as entered by ordering provider in the order requisition) TECHNIQUE: Nonweightbearing AP, oblique, and lateral views of the right foot. COMPARISON: CT of the right foot 09/23/2021. Intraoperative fluoroscopic images 05/04/2022. Right foot radiographs 06/13/2021. FINDINGS: Postoperative changes status post hardware removal from the posterior subtalar joint. There is a ghost screw tract of the calcaneus and posterior talus. There has also been revision of the arthrodesis of the calcaneocuboid joint with a plate-screw construct. There is narrowing of the calcaneal cuboid joint. Bone seng are seen across the talonavicular joint. The talonavicular joint space lucency remains visible, best seen on the AP view. There is a suture anchor along the lateral margin of the navicular. There is a suture anchor projecting over the calcaneus. Hardware is intact. No evidence of screw or hardware backout. There is diffuse osseous mineralization. There is no tibiotalar joint effusion. There is soft tissue swelling of the heel. There is narrowing of the posterior subtalar joint. There is diffuse osseous mineralization. There is a plantar calcaneal enthesophyte. Procedure Note Daniela Funes MD - 05/16/2022 EXAMINATION: XR FOOT MIN 3 VIEWS RIGHT (GENERIC) CLINICAL HISTORY: Rt foot RILEY and arthrodesis. (as entered by orderingprovider in the order requisition) TECHNIQUE: Nonweightbearing AP, oblique, and lateral views of the right foot. COMPARISON: CT of the right foot 09/23/2021. Intraoperative fluoroscopic images05/04/2022. Right foot radiographs 06/13/2021. FINDINGS: Postoperative changes status post hardware removal from the posteriorsubtalar joint. There is a ghost screw tract of the calcaneus and posterior talus.There has also been revision of the arthrodesis of the calcaneocuboid joint witha plate-screw construct. There is narrowing of the calcaneal cuboid joint.Bone seng are seen across the talonavicular joint. The talonavicular jointspace lucency remains visible, best seen on the AP view. There is a sutureanchor along the lateral margin of the navicular. There is a suture anchorprojecting over the calcaneus. Hardware is intact. No evidence of screw or hardware backout. There is diffuse osseous mineralization. There is no tibiotalar jointeffusion. There is soft tissue swelling of the heel. There is narrowing of theposterior subtalar joint. There is diffuse osseous mineralization. There is a plantar calcaneal enthesophyte. IMPRESSION 1. Status post hardware removal from the posterior subtalar joint andrevision of fusion hardware across the Chopart joint. No hardware complication.There is progressive narrowing and obliteration of the calcaneal cuboid jointspace. There is a narrowed talonavicular joint space, but the joint spacelucency remains visible. 2. There is narrowing of the posterior subtalar joint space, but thejoint space lucency remains faintly visible. 3. The soft tissue swelling of the heel. Thank you for letting us participate in the care of this patient. If youare a health care provider and have any questions regarding this report,please contact the number below. For patients who have questions please contactthe health career services representative that requested your imaging first. Jacinda Benoit APRN IMG DX ORDERABLES documented in this encounter Visit Diagnoses Diagnosis Right foot pain Pain in limb Status post ankle arthrodesis Other postprocedural status documented in this encounter Care Teams Equipment Records Supervisor Relationship Specialty Start Date End Date Avery Caballero MD [address] [place] [address] PCP - General 04/15/14 documented as of this encounter
--- OUTSIDE RECORDS SUMMARY | 2024-04-08 18:07 | XMS_ITS | Encounter Summary ---
[place] [address] Care Team Providers Care Electrical And Instrumentation Mechanic Name Role Phone Avery Caballero MD Primary Care Provider [phone] Reason for Visit * Reason Comments Follow Up Surgery R Midtarsal Arthrode sis 05/04/22 ([facility]) Encounter Details Date Type Department Care Team (Late st Contact Info) Description 06/13/2022 1:00 PM EDT Office [place] [id number] Jacinda Benoit, [facility] [place] [address] Hx R triple arthrodesis s/p subtalar screw removal, revision CC arthrodesis 05/04/22 (Dr. Ellis) (Primary Dx) Social History Tobacco Use Types Packs/Day Years Used Date Smoking Tobacco: Never Smokeless Tobacco: Never Alcohol Use Standard Drinks/Week Comments No 0 (1 standard drink = 0.6 oz pur e alcohol) Sex and Gender Information Value Date Recorded Sex Assigned at Not on file Gender Identity Not on file Sexual Orientation Not on file documented as of this encounter Last Filed Vital Signs Vital Sign Reading Time Taken Comments Blood Pressure 117/87 06/13/2022 12:59 PM EDT Pulse 91 06/13/2022 12:59 PM EDT Temperature - - Respiratory Rate 14 06/13/2022 12:59 PM EDT Oxygen Saturation - - Inhaled Oxygen Concentration - - Weight 87.3 kg (192 lb 8 oz) 06/13/2022 12:59 PM EDT Height 149.9 cm (4' 11) 06/13/2022 12:59 PM EDT Body Mass Index 38.88 06/13/2022 12:59 PM EDT documented in this encounter Progress Notes * Jacinda Benoit, WILDLIFE MANAGEMENT PROFESSOR - 06/13/2022 1:00 PM EDT Images from the original note were not included. Surgeon: * Yenifer Ellis MD -?? Principal procedures: DOS: 05/04/2022 1. Right foot hardware removal 2. Right foot calcaneocuboid arthrodesis revision 3. Right foot plantar fat pad anchoring with soft tissue rearrangement to transfer the hypermobile fat pad laterally and anchor to the calcaneus ?? CHIEF COMPLAINT: ~ 6 weeks S/P above procedure HISTORY OF PRESENT ILLNESS: Ms. Ling a 57 y.o. year old female comes into clinic today for appointment 6 weeks s/p the above procedures. Hannah is doing ok. Since I saw her last, there has been somefibrinous drainage at the lateral surgical incision. She also reports pulling out a few suture material since her last appointment. She has been showering and covering the foot with a DSD. Dr. Moura take look at the picture she sent in with watchful waiting recommended Sunday ~ 06/02. Hannah did end up talking to Dr. Solares the weekend of her call to Dr. Ellis who advised going on oral Keflex for 10 days. No drenching night sweats. No fevers or chills. There is some fatigue. She is using Gabapentin, Tylenol for pain. Ms. Ling She reports no change in tingling at the tips of the toes distal to the surgical incision. No reported interval falls or injuries. No reported calf pain, cp or sob. NO requested RTW forms. No requested disability forms. No requested [employer] parking forms. Patient's medications, allergies, past medical, surgical, social and family histories were reviewedand updated as appropriate. ROS: Denies fever, chills, nausea, vomiting, vision change, shortness of breath, chest pain, visionchanges, headaches, bowel or bladder problem, ear, nose, sinus problem, neuro or psychiatric, or endocrine disorder not addressed above. Questionnaire Responses: NONE PHYSICAL EXAMINATION: Vitals: 06/13/22 1259 BP: 117/87 BP Location ([facility]): Left arm Patient Position: Sitting BP Cuff Sizes: Large Adult (32-43 cm) Pulse: 91 Resp: 14 Weight: 87.3 kg (192 lb 8 oz) Height: 149.9 cm (4' 11) Body mass index is 38.88 kg/m??. Ms. Ling a 57 y.o. female is alert and oriented.She appears in no acute discomfort and is resting comfortably in a chair in the exam room. Arrives non- weight bearing with a kneeling scooter. Plasterremoved for the exam. Wound Inspection: The volar and heel surgical incisions are healing nicely with no eliana-incisional erythema or evidence of infection. The lateral based has dehisced since her last appointment. Dried eschar was unroofed by me with underlying granulation tissue and fibrinous drainage. There is ~ 2 mmin depth in the wound with no exposed hardware, no exposed bone, tendon. Dr. Amaro was in to see the patient. We recommended watchful waiting with [employer] cell. See RN note for wound care. Supplies given.The foot and ankle is with no red streaking. No fluctuance. No evidence of deep infection. The surgical incisions are full heeled. Neuro: There is no tingling at the tips of the toes yet otherwise the foot is grossly SILT is grossly sensate and well perfused, DP and PT 2+ to palpation. Capillary refill is less than 3 seconds. Again the foot is grossly SILT 1st webspace, medial and lateral sole and dorsum. ROM: able to wiggle her toes. EHL/FHL 5/5. The calf is soft and non-tender. RIGHT LATERAL FOOT SURGICAL INCISION DEHISCENCE POST DEBRIDEMENT RIGHT LATERAL SURGICAL INCISION PRIOR TO DEBRIDEMENT Imaging: Right foot x-rays reviewed image by image in the office today with no hardware complications noted with evidence joint spaces remain visible with known revision arthrodesis. Formal Report below as follows: FINDINGS: There is diffuse osseous mineralization. There is soft tissue swelling of the entire foot. ?? There are postoperative changes status post talonavicular and calcaneonavicular arthrodesis. There is narrowing of both the talonavicular and calcaneal cuboid joints, though the joint space lucencies remain visible. Hardware is unchanged position. There is no disruption of the hardware. There is no screw backout. There is a suture anchor projecting over the calcaneus, unchanged in position. ?? No acute fracture. There is apparent ankylosis of the first, second, and third tarsometatarsal joints. ?? There are calcaneal and Achilles enthesophytes. ?? IMPRESSION 1. Diffuse osseous demineralization and soft tissue swelling of the right foot. ?? 2. Postoperative changes status post arthrodesis of Chopart joint. The joint space lucency remains visible. No hardware complication. No change in alignment. ?? ASSESSMENT: 57 year old Female who is about 6 weeks status post op for above surgical procedure. Evidence of wound dehiscence right lateral foot incision with no evidence of deep infection. The remainder of the incisions are well approximated with healing. X-rays with no hardware complications. PLAN: I spent approximately 15 minutes of this 20 minute visit discussing Ms. Ling surgical procedure and future plan. I was able have Dr. Amaro come in for another look as Dr. Ellis is not available today. We recommend watchful waiting. See separate notation from Nursing for wound care with aqua cell. Try to keep the wound dry as possible. Elevation. High protein diet. Adequate calcium and vitaminD. Ok to refill oral Keflex for antibiotic coverage. Ok to refill Gabapentin for neuropathic pain. Ok to order Diflucan for PT request for yeast infection prophylaxis. Remain non-weight bearing. CT scheduled for 2 weeks from now per Dr. Ellis's protocol. She and her are comfortable with this approach. The fu plan is to see Dr. Ellis next week for a wound check. No new images. Reasons to return sooner: Night sweats, fevers, chills, purulent drainage, red streaking, swelling,increased pain or any acute changes. Pt agrees, questions solicited/answered, will return as scheduled and as needed for concerns or questions. Pt understands they may also call us prn for above. * Luz Maria Shin RN - 06/13/2022 1:00 PM EDT Aquacel AG ribbon piece placed on wound site (lateral ankle/foot) with Mepilex Ag 4x4 with Border overtop. Patient was sent home with remaining Aquacel Ag ribbon and 4 Mepilex AG with border 4x4. Patient was instructed to change this every 3-5 days. was present and educated on placement of dressings as he will assist the patient with future dressing changes. documented in this encounter Plan of Treatment Not on file documented as of this encounter Visit Diagnoses Diagnosis Hx R triple arthrodesis s/p subtalar screw removal, revision CC arthrodesis 05/04/22 (Dr. Ellis)- Primary Other postprocedural status documented in this encounter Care Teams Electrical And Instrumentation Mechanic Relationship Specialty Start Date End Date Avery Caballero MD [address] [place] [id number] PCP - General 04/15/14 documented as of this encounter
--- OUTSIDE RECORDS SUMMARY | 2024-04-08 18:07 | XMS_ITS | Clinical Summary ---
Author Organization [facility] [place] [address] Care Team Providers Care Retail Planner Name Role Phone Avery Caballero MD Primary Care Provider [phone] Allergies Active Allergy Reactions Criticality Noted Date Comments Adhesive Tape Hives 07/23/2015 No silk tape; paper tape is fine Ibuprofen 06/13/2021 Other reaction(s): Other (See Comment) Latex Other (See Comments) High 04/15/2014 Localized blister/swelling/ope n skin Meclizine Other (See Comments) 04/15/2014 unresponsive Transparent Dressings Rash 06/18/2014 Raw skin instantly and hives Unclassified Drug 09/30/2015 Steri strips Medications Medication Sig Dispensed Refills Start Date End Date Status montelukast (SINGULAIR) 10 mg tablet Take 10 mg by mouth nightly. Active fluticasone (FLONASE) 50 mcg/actuation nasal spray 1 spray daily. Active Cholecalciferol, Vitamin D3, 2,000 unit Cap Take by mouth. Active FERROUS FUMARATE/VIT BCOMP&C (SUPER B COMPLEX ORAL) Take by mouth. Active Kcrdvqalkufvb-Ni-Brt n-Minerals Tab Take by mouth. Women's one a day gummy Active senna (SENOKOT) 8.6 mg Tablet Take 1 tablet by mouth 2 times daily. Active cyanocobalamin 500 mcg Tablet Take 500 mcg by mouth daily. Active acetaminophen (TYLENOL) 325 mg Tablet Take 2 tablets by mouth every 6 hours as needed for Pain. 30 tablet 1 07/23/2015 Active ALBUTEROL INHL Inhale 1 puff into the lungs. Active celecoxib (CELEBREX) 100 mg Capsule 3 04/22/2019 Active PROVENTIL HFA 90 mcg/actuation HFA Aerosol Inhaler 03/21/2019 Active Symbicort 160-4.5 mcg/actuation HFA Aerosol Inhaler INHALE 2 PUFFS BY MOUTH TWICE A DAY 04/07/2021 Active traMADoL (Ultram) 50 mg Tablet Take 50 mg by mouth as needed. 08/26/2021 Active ergocalciferoL, vitamin D2, (vitamin D2) 50,000 unit Capsule Take 1 capsule by mouth once a week. 12 capsule 3 04/03/2022 Active venlafaxine (EFFEXOR-XR) 150 mg Capsule, Sust. Release 24 hr 05/02/2022 Active venlafaxine XR (Effexor-XR) 75 mg Capsule, Sust. Release 24 hr 05/01/2022 Active gabapentin (Neurontin) 100 mg Capsule Take 1 capsule by mouth 3 times daily. 60 capsule 06/13/2022 Active cephALEXin (Keflex) 500 mg Capsule Take 1 capsule by mouth 4 times daily. 40 capsule 06/13/2022 Active fluconazole (Diflucan) 150 mg Tablet Take one may repeat once 2 tablet 06/13/2022 Active Active Problems Problem Noted Date Diagnosed Date Hx R triple arthrodesis s/p subtalar screw removal, revision CC arthrodesis 05/04/22 (Dr. 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 Gastroesophageal reflux disease 02/23/2012 Asthma 12/12/2011 Overview (05/16/2022): meme and vielkair chronically, very rare use of albuterol Resolved Problems Problem Noted Date Diagnosed Date Resolved Date Breast hypertrophy 04/15/2014 5 Family History Medical History Relation Comments Kidney Disease Brother Coronary Artery Disease Father Heart Disease Father Coronary Artery Disease Mother Diabetes Mother Heart Disease Mother High Blood Pressure Mother Kidney Disease Mother Stroke Mother Relation Status Comments Brother Father Mother Social History Tobacco Use Types Packs/Day Years Used Date Smoking Tobacco: Never Smokeless Tobacco: Never Alcohol Use Standard Drinks/Week Comments No 0 (1 standard drink = 0.6 oz pur e alcohol) Sex and Gender Information Value Date Recorded Sex Assigned at Not on file Gender Identity Not on file Sexual Orientation Not on file Last Filed Vital Signs Vital Sign Reading Time Taken Comments Blood Pressure 105/80 06/21/2022 8:30 AM EDT Pulse 91 06/21/2022 8:30 AM EDT Temperature 37.2 ??C (99 ??F) 05/04/2022 12:03 PM EDT Respiratory Rate 14 06/13/2022 12:59 PM EDT Oxygen Saturation 95% 05/04/2022 12:50 PM EDT Inhaled Oxygen Concentration - - Weight 87.1 kg (192 lb) 06/21/2022 8:30 AM EDT Height 149.9 cm (4' 11) 06/21/2022 8:30 AM EDT Body Mass Index 38.78 06/21/2022 8:30 AM EDT Plan of Treatment Health Maintenance Due Date Last Done Comments CT Colonography 1963 FIT DNA 1965 FIT 1965 Sigmoidoscopy 1965 Pneumococcal Vaccine: At-Ris k 5-64yrs (1 of 2 - PCV) 1969 HIV screen 1981 Hepatitis C Screening 1981 Lipid Screening 1981 Tdap adult 1982 Tetanus vaccine 1982 HPV test 1993 PAP Smear 1993 Breast Cancer Share Decision Needed 2003 Breast Cancer screening 2003 Zoster vaccine (1 of 2) 2013 Diabetes Screening (HgbA1C or Glucose) 09/30/2017 Advance Directive 2018 Covid-19 Vaccine ( - 2022-24 season) 2023 Influenza (Flu) vaccine (1 o f 1 - Influenza standard series) 05/04/2024 Colonoscopy 10/06/2024 10/06/2014, 10/06/2014 Colorectal Cancer Screening 10/06/2024 Sigmoidoscopy (10 year) with FIT yearly 10/06/2024 0 10/06/2014, 10/06/2014 Medical Devices Implanted Type Area Target Setter Device Identifier Shelf Expiration Date Model / Serial / Lot Graft Bone Filler 1cc Dbm Injectable Putty Allomatrix ([id number]) (Autoreq) - [id number] Implanted:Qty : 1 on 05/04/2022 by Yenifer Ellis MD at [facility] IMPLANTS Right: Foot [employer] - XEMAX SURG [id number] 09/13/2026 [id number] / [id number] / Screw 3.5x30mm Isidro Lck Ft Purple Ti Ortholoc 3di ([id number]) (Autoreq) - [id number] Implanted:Qty : 1 on 05/04/2022 by Yenifer Ellis MD at [facility] IMPLANTS Right: [facility] MED [id number] / / Screw 3.5x36mm Isidro Nlck Ft Bronze Ti Ortholoc 3di ([id number]) (Autoreq) - [id number] Implanted:Qty : 1 on 05/04/2022 by Yenifer Ellis MD at [facility] IMPLANTS Right: [facility] [id number] / / Graft Bone Filler 1cc Dbm Injectable Putty Allomatrix ([id number]) (Autoreq) - [id number] Implanted:Qty : 1 on 05/04/2022 by Yenifer Ellis MD at [facility] IMPLANTS Right: Foot [employer] - XEMAX SURG [id number] 09/13/2026 [id number] / [id number] / Graft Bone Filler Injectable 1.5cc Dbm Augment ([id number]) (Autoreq) - [id number] Implanted:Qty : 1 on 05/04/2022 by Yenifer Ellis MD at [facility] IMPLANTS Right: [facility] MED [id number] 02/29/2024 [id number] / / [id number] Graft Bone Filler 7ewx1-2ep Dbm Freeze Dried Chips ([id number]) (Autoreq) - [id number] Implanted:Qty : 1 on 05/04/2022 by Yenifer Ellis MD at [facility] IMPLANTS Right: Foot [facility] [id number] 02/20/2027 CAN5 / [id number] / Suture [place] 5.5x15mm 2-0 Fiberwire Sdrill Ti Corkscrew ([id number]) - [id number] Implanted:Qty : 1 on 05/04/2022 by Yenifer Ellis MD at [facility] IMPLANTS Right: Foot [employer] [place] 03/02/2027 [id number] / / [id number] Plate Flat 6 Hole Comp Lck Ti Ortholoc 3di ([id number]) (Autoreq) - [id number] Implanted:Qty : 1 on 05/04/2022 by Yenifer Ellis MD at [facility] IMPLANTS Right: [facility] MED [id number] / / Screw 3.5x20mm Isidro Lck Ft Purple Ti Ortholoc 3di ([id number]) (Autoreq) - [id number] Implanted:Qty : 1 on 05/04/2022 by Yenifer Ellis MD at [facility] IMPLANTS Right: [facility] MED [id number] / / Screw 3.5x24mm Isidro Lck Ft Purple Ti Ortholoc 3di ([id number]) (Autoreq) - [id number] Implanted:Qty : 1 on 05/04/2022 by Yenifer Ellis MD at [facility] IMPLANTS Right: [facility] MED [id number] / / Screw 3.5x28mm Isidro Lck Ft Purple Ti Ortholoc 3di ([id number]) (Autoreq) - [id number] Implanted:Qty : 1 on 05/04/2022 by Yenifer Ellis MD at [facility] IMPLANTS Right: [facility] [id number] / / Procedures Procedure Name Priority Date/Time Associated Diagnosis Comments COLONOSCOPY Routine 10/06/2014 3:37 PM EST COMPREHENSIVE METABOLIC PANEL Routine 09/30/2014 5:07 PM EST Abdominal pain, RUQ (right upper quadrant) Abnormal CT scan from Last 3 Months or Most Recently Relevant to Health Maintenance Results * COLONOSCOPY (10/06/2014 3:37 PM EST) Pathologist [facility] COLONOSCOPY [facility] End[facility] Patient Name: Hannah Ling ? Procedure Date: 10/06/2014 3:37 PM ? N: [id number] ? Date of : 1965 ? Age: 49 ? Order #: [id number] ? Procedure: ? Colonoscopy Indications: ? Abdominal pain, thickened ascending ? colon on CT scan, anemia Providers: ? Bassem Norman MD, Guera Salmeron, ? RN, Murphy Eldridge, School Vocational Educator Referring MD: ?Avery Caballero MD, Yesenia Zuinga ? Osorio, SLIVER LAP MACHINE TENDER, Hiram Barrow MD Medicines: ? Midazolam 6 mg IV, Fentanyl 250 ? micrograms IV Complications: ? No immediate complications. Procedure: ? Pre-Anesthesia Assessment: ? - ASA Grade Assessment: II - A ? patient with mild systemic disease. ? The procedure, indications, benefits, ? risks and alternatives were explained ? to the patient. Specifically ? discussed were potential ? complications including, but not ? limited to, bleeding, perforation, ? infection, missing a cancer, and ? adverse medication reactions. The ? patient was placed in the left ? lateral decubitus position, and a ? digital rectal exam was performed. ? The Colonoscope was inserted in the ? anus and under direct visualization, ? advanced to the terminal ileum. ? Careful inspection was made as the ? colonoscope was withdrawn. The ? colonoscopy was performed without ? difficulty. The patient tolerated the ? procedure well. The quality of the ? bowel preparation was excellent. ? Scope withdrawal time was 9 minutes. ? Findings: ? The colon (entire examined portion) appeared normal. ? The ascending colon appeared normal. Biopsies were ? taken with a cold forceps for histology. ? The terminal ileum appeared normal. ? A few small and large-mouthed diverticula were found ? in the sigmoid colon. ? Impression: ?- The entire examined colon is normal. ? - The ascending colon is normal. ? Biopsied. ? - The examined portion of the ileum ? was normal. ? - Diverticulosis in the sigmoid colon. Recommendation: ?- Await pathology results. ? _ Bassem Norman MD 10/06/2014 4:53 PM This report has been signed electronically. Number of Addenda: 0 Note Initiated On: 10/06/2014 3:37 PM PROVATION 10/06/2014 3:37 PM EST Avery Caballero MD GENERAL SURGICAL ORD ERABLES PROVATION * (ABNORMAL) Comprehensive metabolic panel (non-fasting) (09/30/2014 5:07 PM EST) Glucose 93 60 - 199 mg/dL CERNER MILLENNIUM Comment:Diabetes: >=200 mg/d L plus symptoms Blood Urea Nitrogen 9 8 - 18 mg/dL CERNER MILLENNIUM Creatinine 0.53(L) 0.70 - 1.20 mg/dL CERNER MILLENNIUM Comment: Please note that the pediatric reference intervals supplied above were not validated at [facility]. Results from pediatric patients should be interpreted in conjunction to the patient's age, height and muscle mass. Sodium 140 135 - 145 mmol/L CERNER MILLENNIUM Potassium 3.8 3.5 - 5.0 mmol/L CERNER MILLENNIUM Comment: Please note: ??Patients with WBC >100,000 may have falsely elevated Potassium levels. ??For accurate Potassium quantification in these patients send serum separator tube (gold top) for subsequent determinations. ??Contact the Clinical Chemistry Laboratory if there are any questions. Chloride 101 98 - 107 mmol/L CERNER MILLENNIUM Carbon Dioxide 27 22 - 31 mmol/L CERNER MILLENNIUM Anion Gap 12 5 - 15 mmol/L CERNER MILLENNIUM Calcium 9.4 8.5 - 10.5 mg/dL CERNER MILLENNIUM Protein, Total 7.4 6.4 - 8.3 gm/dL CERNER MILLENNIUM Albumin 4.2 3.2 - 5.2 gm/dL CERNER MILLENNIUM Aspartate Aminotransferase 20 0 - 30 unit/L CERNER MILLENNIUM Alanine Aminotransferase 20 0 - 30 unit/L CERNER MILLENNIUM Alkaline Phosphatase 149(H) 40 - 104 unit/L CERNER MILLENNIUM Bilirubin, Total 0.3 0.2 - 1.3 mg/dL CERNER MILLENNIUM Bilirubin, Direct 0.1 0.0 - 0.3 mg/dL CERNER MILLENNIUM Est Glomerular Filtration Rate >60 >=60 CERNER MILLENNIUM Comment: This estimated GFR (eGFR) value was calculated using the MDRD equation which has been validated on patients between the ages of 18 and 70. The MDRD should not be used to assess kidney function in patients < 18 years of age or in patients with extremes of body mass, or in patients with acute kidney failure. This value should be multiplied by 1.2 for patients. For further information please copy and paste the following links into your internet browser. [email or web address] Blood specimen (specimen) 09/30/2014 5:07 PM EST 09/30/2014 5:12 PM EST Narrative Resulting Agency Comment Spec In Lab Roly Goldstein MD CHEMISTRY ORDERABLES CERNER MILLENNIUM from Last 3 Months or Most Recently Relevant to Health Maintenance Advance Directives * Full Code (Latest Code Status on File) Date Activated Date Inactivated Comments 06/19/2014 8:20 PM 06/22/2014 3:31 PM Question Answer Comments Order Status: Initial Order Does patient have decision m aking capacity? Yes, Order is based on Patients wishes. * Full Code Date Activated Date Inactivated Comments 06/19/2014 6:21 PM 06/19/2014 8:20 PM Question Answer Comments Order Status: Initial Order Does patient have decision m aking capacity? Yes, Order is based on Patients wishes. Care Teams Retail Planner Relationship Specialty Start Date End Date Avery Caballero MD [address] [address] PCP - General 04/15/14
--- OUTSIDE RECORDS SUMMARY | 2024-04-08 18:07 | XMS_ITS | Encounter Summary ---
Author Organization [facility] [place] [address] Care Team Providers Care Tooth Cutter Spur Name Role Phone Avery Caballero MD Primary Care Provider [phone] Encounter Details Date Type Department Care Team (Late st Contact Info) Description 05/05/2022 Telephone [place] [phone] Jacinda Benoit APRN [facility] [place] [address] Social History Tobacco Use Types Packs/Day Years [...] on file documented as of this encounter Results * XR Foot Min [...] who have questions please contact the health direct care professional that requested your imaging first. ? Electronically signed by: Daniela Funes MD, [facility] ([phone]), at 05/16/2022 2:32 PM Narrative 05/16/2022 2:32 [...] patients who have questions please contactthe health direct care professional that requested your imaging first. Jacinda Benoit SILK SCREEN PRINTER IMG DX ORDERABLES documented in this encounter Visit Diagnoses Diagnosis Right foot pain Pain in limb Status post ankle arthrodesis Other postprocedural status Right foot pain Pain in limb Status post ankle arthrodesis Other postprocedural status documented in this encounter Care Teams Tooth Cutter Spur Relationship Specialty Start Date End Date Avery Caballero MD [address] [place] [id number] PCP - General 04/15/14 documented as of this encounter
--- OUTSIDE RECORDS SUMMARY | 2024-04-08 18:07 | XMS_ITS | Encounter Summary ---
[place] [address] Care Team Providers Care Furniture Refinisher Name Role Phone Avery Caballero MD Primary Care Provider [phone] Reason for Visit * Reason Onset Date Comments Appointment 06/29/2022 Encounter Details Date Type Department Care Team (Late st Contact Info) Description 06/29/2022 Telephone [place] [address] Yenifer Ellis MD [facility] DR [place] [address] Appointment Social History Tobacco Use Types Packs/Day Years Used Date Smoking Tobacco: Never Smokeless Tobacco: Never Alcohol Use Standard Drinks/Week Comments No 0 (1 standard drink = 0.6 oz pur e alcohol) Sex and Gender Information Value Date Recorded Sex Assigned at Not on file Gender Identity Not on file Sexual Orientation Not on file documented as of this encounter Miscellaneous Notes * Telephone Encounter - Isis Coronel - 07/05/2022 8:26 AM EDT Unable to reach patient. Letter sent. * Telephone Encounter - Isis Coronel - 07/03/2022 9:35 AM EDT Images from the original note were not included. LM#2 Please schedule Per below, can Schedule in Hold slot as long as it is 15 min ?? Yenifer Ellis MD P [facility] [place] Please schedule for 15 min follow up visit in 6 weeks. ??WB foot films prior. * Telephone Encounter - Dasha eBnoit - 06/29/2022 4:38 PM EDT Images from the original note were not included. LM#1 Please schedule Per below, can Schedule in Hold slot as long as it is 15 min Yenifer Ellis MD P [facility] [place] Please schedule for 15 min follow up visit in 6 weeks. ??WB foot films prior. documented in this encounter Plan of Treatment Not on file documented as of this encounter Visit Diagnoses Not on filedocumented in this encounter Care Teams Furniture Refinisher Relationship Specialty Start Date End Date Avery Caballero MD [address] [place] [address] PCP - General 04/15/14 documented as of this encounter
--- OUTSIDE RECORDS SUMMARY | 2024-04-08 18:07 | XMS_ITS | Encounter Summary ---
[place] [address] Care Team Providers Care Toggler Name Role Phone Avery Caballero MD Primary Care Provider [phone] Reason for Referral * Diagnostic Test (Routine) - Closed Specialty Diagnoses / Procedures Referred By Kiarra banuelos Referred To Contact Radiology Diagnoses Status post ankle arthrodesis Procedures CT Foot wo Contrast Right (Generic) Jacinda Benoit APRN [facility] [place] [address] [facility] [place] [address] Referral ID Status Reason Start Date Expiration Date V isits Requested Visits Authorized [id number] Closed Specialty Service Requested 05/16/2022 11/14/2023 1 1 Reason for Visit * Reason Comments Post Op DOS:05/04/2022 RIGHT A RTHRODESIS,MIDTARSAL(FARO) Encounter Details Date Type Department Care Team (Late st Contact Info) Description 05/16/2022 1:00 PM EDT [place] [address] Jacinda Benoit APRN [facility] [place] [address] Status post ankle arthrodesis (Primary Dx); Hx R triple arthrodesis s/p subtalar screw removal, revision CC arthrodesis 05/04/22 (Dr. Ellis) Social History Tobacco Use Types Packs/Day Years [...] Sign Reading Time Taken Comments Blood Pressure 120/80 05/16/2022 1:01 PM EDT Pulse 102 05/16/2022 1:01 PM EDT Temperature - - Respiratory Rate - - Oxygen Saturation - - Inhaled Oxygen Concentration - - Weight - - Height - - Body Mass Index - - documented in this encounter Progress Notes * Jacinda Benoit, FLAME HARDENER - 05/16/2022 1:00 PM EDT PATIENT NAME: Hannah Ling AGE: 57 y.o. MR#: [id number] DATE OF VISIT: 05/16/2022 Date: 05/04/2022 ?? Surgeon: * Yenifer Ellis MD -?? Principal procedures: 1. Right foot hardware removal 2. Right foot calcaneocuboid arthrodesis revision 3. Right foot plantar fat pad anchoring with soft tissue rearrangement to transfer the hypermobile fat pad laterally and anchor to the calcaneus ?? CHIEF COMPLAINT: 13 days S/P above procedure HISTORY OF PRESENT ILLNESS: Ms. Ling a 57 y.o. year old female comes into clinic today for appointment 13 days s/p the above procedures. Hannah is doing ok. Yet, pain is reportedly not managed well.The pain is different than any other surgery that I've had. Using Tramadol and Tylenol for pain. The pain is deep, constant aching. There is some hypersensitivity reported. No systemic or constitutional complaints. No reported drenching night sweats. Ms. Ling denies any fever/chills or other constitutional signs of infection. She reports some tingling at the tips of the toes distal to the surgical incision. Hannah has not noticed any abnormal drainage from her incision or increased rednessor discomfort. GI or complaint: None reported. No reported interval falls or injuries. No reported calf pain, cp or sob. No other medical issues to report. NO requested RTW forms. No requested disability [...] above. Questionnaire Responses: NONE PHYSICAL EXAMINATION: Vitals: 05/16/22 1301 BP: 120/80 Pulse: (!) 102 There is no height or weight on file to calculate BMI. Ms. Ling a 57 y.o. female is alert and oriented.She appears in no acute discomfort and is resting comfortably in a chair in the exam room. Arrives non- weight bearing with a kneeling scooter. Plasterremoved for the exam. Wound Inspection: There is some hypersensitivity noted about the surgical incision. The lateral based and volar surgical incisions are well approximated with mild hyperemia that corrects with elevation. No drainage. No red streaking. No fluctuance. No evidence of infection. The surgical incisions are well approximated medial and at the heel. I am unable to spread the incisions with my findings. Surgical sutures removed by Christel MITCHELL tolerated well. We placed a DSD and debbie wrap over the ankle for some extra padding due to hypersensitivity. Placed in her tall rebound boot. She wonders about a short rebound boot. Neuro: There is tingling at the tips of the toes yet otherwise the foot is grossly SILT is grossly sensate and well perfused, DP and PT 2+ to palpation. Capillary refill is less than 3 seconds. Againthe foot is grossly SILT 1st webspace, medial and lateral sole and dorsum. ROM: able to wiggle her toes. EHL/FHL 5/5. The calf is soft and non-tender. Imaging: Right foot x-rays reviewed image by image in the office today with no hardware complications noted. Formal x-ray report in ED[facility] as follows: FINDINGS: Postoperative changes status post hardware removal [...] No evidence of screw or hardware backout. ?? There is diffuse osseous mineralization. There is no tibiotalar joint effusion. There is soft tissue swelling of the heel. There is narrowing of the posterior subtalar joint. ?? There is diffuse osseous mineralization. There is a plantar calcaneal enthesophyte. ?? IMPRESSION 1. Status post hardware removal from the posterior subtalar joint and revision of fusion hardware across the Chopart joint. No hardware complication. There is progressive narrowing and obliteration of the calcaneal cuboid joint space. There is a narrowed talonavicular joint space, but the joint space lucency remains visible. ?? 2. There is narrowing of the posterior subtalar joint space, but the joint space lucency remains faintly visible. ?? 3. The soft tissue swelling of the heel. ASSESSMENT: 57 year old Female who is 13 days post op for above surgical procedure. She is doing ok. Yet, pain is not well managed. There is some hypersensitivity noted. No apparent hardware complications. No evidence of deep infection. PLAN: I spent approximately 15 minutes of this 20 minute visit discussing Ms. Ling surgical procedure and future plan. . Per Dr. Ellis: Postoperative plan: The patient will be nonweightbearing for a minimum of 8 weeks. We will see her back in clinic in 2 weeks time at which point we will obtain nonweightbearing right foot films and remove her sutures and place her into a boot so that she can work on ankle range of motion. She does not need to sleep in the boot or shower in the boot. We will obtain a CT scan at 8 weeks postop and advanced her weightbearing depending upon the findings of that CT scan. At this time, Ok to shower with keeping the surgical incision clean and dry. Non-weight bearing. Requests a short rebound boot. Hannah feels that she can obtain a short rebound boot closer to home. She feels that she is of short stature and the tall rebound boot is uncomfortable. I offered a Rx to ortho care knowing that she may receive a bill due to sequential DME orders. Therefore, Hannah optedfor a boot closer to home with her local hospital/vendor. Call if Rx needed. We reviewed the importance of elevation. Ok GENTLE ROM exercises DF/PF plane. Avoid side to side motions. Ok to continue with Tramadol PRN for pain, Cool packs and acetaminophen prn for pain no greater than 3 grams per day. Ok to add Neurontin 100 mg three times per day for hypersensitivity. I have already ordered this as a future order in the computer. We can monitor this closely and titrate up to 300 mg three timesper day if tolerated well. ?? We were able to discuss the following plan: 1. Non-weight bearing 8 weeks. 2. Ok boot off for sleeping and showering. 3. Ok to shower with padding dry the incision. 4. Continue with Tramadol, Cool packs and acetaminophen prn for pain no greater than 3 grams per day. Ok to add gabapentin 100 mg three times per day. 5. Elevate as much as possible. High protein diet. Adequate calcium and vitamin D. 6. Dr. Ellis's team in 4 weeks in 4 weeks with right foot x-ray. I have already ordered this as a future order in the computer. 7. Right foot CT scan I have already ordered this as a future order in the computer PLEASE SCHEDULETHIS CT SCAN NO SOONER THAN 6 WEEKS FROM NOW AND OR 8 WEEKS POST OP. WE WILL THEN CALL YOU WITH THERESULTS TO DISCUSS WEIGHT BEARING. Pt agrees, questions solicited/answered, will return as scheduled and as needed for concerns or questions. Pt understands they may also call us prn for above. documented in this encounter Plan of Treatment Not on file documented as of this encounter Results * CT Foot wo [...] who have questions please contact the health rn urgent care that requested your imaging first. ? Electronically signed by: Taisha Dunbar MD, [facility] ([phone]), at 06/28/2022 11:01 PM Narrative 06/28/2022 11:01 [...] patients who have questions please contactthe health rn urgent care that requested your imaging first. Electronically signed by: Taisha Dunbar MD, [facility]([phone]), at 06/28/2022 11:01 PM Jacinda Benoit APRN IMG CT ORDERABLES * XR Foot Min 3 views Right (Generic) (06/13/2022 12:11 PM EDT) Anatomical Region Laterality Modality Foot Right Digital Radiogra phy Impressions 06/13/2022 1:58 PM EDT 1. ??Diffuse osseous demineralization and soft tissue swelling of the right foot. 2. ??Postoperative changes status post arthrodesis of Chopart joint. The joint space lucency remains visible. No hardware complication. No change in alignment. Thank you for letting us participate in the care of this patient. ??If you are a health care provider and have any questions regarding this report, please contact the number below. ??For patients who have questions please contact the health rn urgent care that requested your imaging first. ? Electronically signed by: Daniela Funes MD, [facility] ([phone]), at 06/13/2022 1:58 PM Narrative 06/13/2022 1:58 PM EDT EXAMINATION: XR FOOT MIN 3 VIEWS RIGHT (GENERIC) CLINICAL HISTORY: right foot revision arthrodesis with fat pad reconstruction, non-weight bearing ? change from previous x-ray (as entered by ordering provider in the order requisition) TECHNIQUE: Nonweightbearing AP, oblique, lateral views of the right foot. COMPARISON: Right foot radiographs 05/16/2022. CT of the right foot 09/23/2021. FINDINGS: There is diffuse osseous mineralization. There is soft tissue swelling of the entire foot. There are postoperative changes status post talonavicular and calcaneonavicular arthrodesis. There is narrowing of both the talonavicular and calcaneal cuboid joints, though the joint space lucencies remain visible. Hardware is unchanged position. There is no disruption of the hardware. There is no screw backout. There is a suture anchor projecting over the calcaneus, unchanged in position. No acute fracture. There is apparent ankylosis of the first, second, and third tarsometatarsal joints. There are calcaneal and Achilles enthesophytes. Procedure Note Daniela Funes MD - 06/13/2022 EXAMINATION: XR FOOT MIN 3 VIEWS RIGHT (GENERIC) CLINICAL HISTORY: right foot revision arthrodesis with fat padreconstruction, non-weight bearing ? change from previous x-ray (as entered by ordering provider in theorder requisition) TECHNIQUE: Nonweightbearing AP, oblique, lateral views of the right foot. COMPARISON: Right foot radiographs 05/16/2022. CT of the right foot 09/23/2021. FINDINGS: There is diffuse osseous mineralization. There is soft tissue swelling ofthe entire foot. There are postoperative changes status post talonavicular andcalcaneonavicular arthrodesis. There is narrowing of both the talonavicular and calcanealcuboid joints, though the joint space lucencies remain visible. Hardware isunchanged position. There is no disruption of the hardware. There is no screwbackout. There is a suture anchor projecting over the calcaneus, unchanged inposition. No acute fracture. There is apparent ankylosis of the first, second, andthird tarsometatarsal joints. There are calcaneal and Achilles enthesophytes. IMPRESSION 1. Diffuse osseous demineralization and soft tissue swelling of the rightfoot. 2. Postoperative changes status post arthrodesis of Chopart joint. Thejoint space lucency remains visible. No hardware complication. No change inalignment. Thank you for letting us participate in the care of this patient. If youare a health care provider and have any questions regarding this report,please contact the number below. For patients who have questions please contactthe health rn urgent care that requested your imaging first. Electronically signed by: Daniela Funes MD, [facility]([phone]), at 06/13/2022 1:58 PM Jacinda Benoit APRN IMG DX ORDERABLES documented in this encounter Visit Diagnoses Diagnosis Status post ankle arthrodesis- Primary Other postprocedural status Hx R triple arthrodesis s/p subtalar screw removal, revision CC arthrodesis 05/04/22 (Dr. Ellis) Other postprocedural status Status post ankle arthrodesis Other postprocedural status Status post ankle arthrodesis Other postprocedural status documented in this encounter Care Teams Toggler Relationship Specialty Start Date End Date Avery Caballero MD [address] [place] [address] PCP - General 04/15/14 documented as of this encounter
--- OUTSIDE RECORDS SUMMARY | 2024-04-08 18:07 | XMS_ITS | Encounter Summary ---
[place] [address] Care Team Providers Care Bonderizer Name Role Phone Avery Caballero MD Primary Care Provider [phone] Reason for Visit * Reason Comments Follow Up Surgery Wound check for righ t triple arthrodesis s/p subtalar screw removal, revision CC arthrodesis 05/04/22 Encounter Details Date Type Department Care Team (Latest Contact Info) Description 06/21/2022 8:30 AM EDT Office [place] [address] Yenifer Ellis MD [facility] [place] [address] Post-traumatic osteoarthritis of right ankle; Hx R triple arthrodesis s/p subtalar screw [...] Pulse 91 06/21/2022 8:30 AM EDT Temperature - - Respiratory Rate - - Oxygen Saturation - - Inhaled Oxygen Concentration - - Weight 87.1 kg (192 lb) 06/21/2022 8:30 AM EDT Height 149.9 cm (4' 11) 06/21/2022 8:30 AM EDT Body Mass Index 38.78 06/21/2022 8:30 AM EDT documented in this encounter Progress Notes * Yenifer Ellis MD - 06/21/2022 8:30 AM EDT PATIENT NAME: Hannah Ling AGE: 57 y.o. MR#: [id number] DATE OF VISIT: 06/21/2022 STAFF: Yenifer Ellis MD FOLLOW UP FOR: R triple arthrodesis s/p subtalar screw removal, revision CC arthrodesis 05/04/22 HISTORY OF PRESENT ILLNESS: Ms. Ling is a 57 y.o. female who comes into clinic today for follow upof the above procedure. She has been having issues with that lateral wound healing and has previously seen Cora Benoit. It does appear to be healing and steadily but there is still some pain associated. She also has a concern about numbness in her toes. That pain is not changing and not getting better. Medications and Allergies were reviewed in eD-H PAST MEDICAL HX: Past Medical History: Diagnosis Date ??? Allergy ??? Breathing problem ??? Digestive problems ??? ENT disease ??? Eye problems ??? GERD (gastroesophageal reflux disease) ??? Musculoskeletal disease Patient Active Problem List Diagnosis Code ??? Abdominal pannus E65 ??? Lipodystrophy E88.1 ??? Other specified aftercare following surgery Z48.89 ??? S/P panniculectomy Z98.890 ??? Macromastia N62 ??? Excess skin of arms bilaterally L98.7 ??? S/P bilateral breast reduction Z98.890 ??? Pain of right heel M79.671 ??? 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 Post-traumatic osteoarthritis of right ankle M19.171 ??? Hx R triple arthrodesis s/p subtalar screw removal, revision CC arthrodesis 05/04/22 (Dr. Ellis) Z96.7 ??? Asthma J45.909 ??? Gastroesophageal reflux disease K21.9 PAST SURGICAL HX: Past Surgical History: Procedure Laterality Date ??? APPENDECTOMY ??? PRG UNLISTED DIAGNOSTIC GASTROENTEROLOGY PROCEDURE ??? PRO ADJ TISS XFER HEAD, FAC, HAND 10.1-30 Right 05/04/2022 ADJ.TISSUE TRANSFER, REARRANGEMENT, 10.1 TO 30 SQ.CM, FEET (WRVU 10.83) performed by Yenifer Ellis MD at [facility] ??? PRO BREAST REDUCTION Bilateral 07/23/2015 REDUCTION MAMMOPLASTY, HIRAL performed by Hiram Barrow MD at [facility] MAIN OR ??? PRO COLONOSCOPY, BIOPSY N/A 10/06/2014 COLONOSCOPY FLEXIBLE, WITH BX performed by Bassem Norman MD at [facility] ENDOSCOPY ??? PRO EXCISE EXCESS SKIN TISSUE, ABDOMEN, ADD-ON 06/19/2014 ABDOMINOPLASTY EXC,W/ UMBILICAL TRANSPOSITION, FASCIAL PLICATION performed by Hiram Barrow MD at [facility] MAIN OR ??? PRO EXCISE EXCESS SKIN TISSUE, ARM Bilateral 07/23/2015 EXCISION, SKIN AND SUB-Q TISSUE, ARM-HIRAL performed by Hiram Barrow MD at [facility] MAIN OR ??? PRO EXCISE EXCESS SKIN TISSUE, THIGH 06/19/2014 EXCISION EXCESSIVE SKIN AND TISSUE-THIGH performed by Hiram Barrow MD at [facility] MAIN OR ??? PRO FUSION FOOT BONES, MIDTARSAL, MULTI Right 05/04/2022 ARTHRODESIS, MIDTARSAL OR TARSOMETATARSAL W/O OSTEOTOMY (WRVU 10.7) performed by Yenifer Ellis MD at [facility] ??? PRO REMOVAL DEEP IMPLANT Right 05/04/2022 REMOVAL OF IMPLANT, DEEP, FOOT (WRVU 5.96) performed by Yenifer Ellis MD at [facility] ??? PRO SUCT BERTO LIPECTOMY, LOW EXTREM 06/19/2014 SUCTION ASSISTED LIPECTOMY, LOWER EXTREMITY-HIRAL performed by Hiram Barrow MD at [facility] MAIN OR ??? PRO SUCT BERTO LIPECTOMY, TRUNK Bilateral 07/23/2015 SUCTION ASSISTED LIPECTOMY,TRUNK performed by Hiram Barrow MD at [facility] MAIN OR ??? PRO UNLISTED CRANIO/MAXILLOFACIAL SURG ??? PRO UNLISTED PROCEDURE PHARYNX ADENOIDS/TONSILS ??? PRO UNLISTED PROCEDURE, MUSCULOSKELETAL SYSTEM, GENERAL ??? PRO UNLISTED PX FEMALE GEN SYS ??? PRO UPPER GI ENDOSCOPY, BIOPSY N/A 10/06/2014 EGD WITH BIOPSY performed by Bassem Norman MD at [facility] ENDOSCOPY FAMILY HX: Family History Problem Relation Age of Onset ??? Kidney Disease Mother ??? Diabetes Mother ??? Stroke Mother ??? Coronary Artery Disease Mother ??? Heart Disease Mother ??? High Blood Pressure Mother ??? Kidney Disease Brother ??? Coronary Artery Disease Father ??? Heart Disease Father SOCIAL HX: Social History Occupational History ??? Not on file Tobacco Use ??? Smoking status: Never Smoker ??? Smokeless tobacco: Never Used Vaping Use ??? Vaping Use: Never used Substance and Sexual Activity ??? Alcohol use: No ??? Drug use: No ??? Sexual activity: Not on file General Health, Prior Treatments, PreExisting Condition, Health Habits, About You 06/19/2022 PROMIS-10 General Health Good PROMIS-10 Quality of Life Fair PROMIS-10 Physical Health Fair PROMIS-10 Mental Health Fair PROMIS-10 Social Activity Fair PROMIS-10 Everyday Activities Not at all PROMIS-10 Pain 5 PROMIS-10 Fatigue Moderate PROMIS-10 Social Roles Poor PROMIS-10 Anxious or Depressed Often PROMIS PHYSICAL SCORE (range 16-68) 32.4 PROMIS MENTAL SCORE (range 21-68) 33.8 Treatments Tried - Alzheimers or dementia - Cirrohosis or liver disease - HIV/AIDS - Pain in more than one joint in legs - Back or neck pain - Heart attack - Heart failure - Unclog/bypass leg arteries - Stroke, blood clot, TIA - Asthma - Take medication for asthma - Emphysema, chronic bronchities, or COPD - Stomach ulcers/peptic ulcer disease - Condition diagnosed by endoscopy - Diabetes - Poor kidney function - Rheumatic condtions - Cancer - Height (feet) - Height (Inches) - BMI - Ever used tobacco products - Ever used alcoholic beverages - Alcohol frequency - WHO - Alcohol Advice - Live Alone - Marital situation - Schooling - Combined Household Income - # People Supported - Ethiopian, , - Race - Health Literacy - Currently working - Current job situation - Employment status before injury - Returned to previous employment - Working at same capacity as before injury - Spending time in inpatient rehab facility - Rate overall condition today - No flowsheet data found. No flowsheet data found. PHYSICAL EXAM: Ms. Ling is a 57 y.o. female General appearance: in no acute distress, alert, cooperative Psych: cooperative with exam, appropriate Head: normocephalic, atraumatic EENT: EOMI grossly intact Neck: supple, trachea midline Cardiac: regular rate and rhythm by peripheral pulse Lungs: no extra work of breathing Musculoskeletal: Examination of the right foot reveals her incision has a wound that is approximately 7 cm wide at the widest and very superficial. There is no erythema or evidence of infection. Somefibrinous tissue was debrided today and I placed a wet-to-dry dressing. Her fat pad does feel more stable today but there is still moderate swelling. There is no Tinel's sign over the tarsal tunnel. Her lesser toes are subjectively decreased in sensation DIAGNOSTIC STUDIES: No new films were taken today ASSESSMENT: Status post right calcaneocuboid joint revision fusion, hardware removal and fat pad rearrangement with wound dehiscence, steadily healing PLAN: At this point, I think she would benefit from a little bit of debridement from that wound butoverall I think it is headed in the right direction and I do not have any concerned about a deep process. I would like to get her set up for her CT scan and that is already done with her having her CT scan on the . I will follow-up with her after that CT scan to advise whether or not we can begin weightbearing. I talked with her about her nerves and I think that this is most likely because ofthe magnitude of the surgery and the soft tissue swelling. I encouraged her to use her Curt bandage at times to help decrease the swelling when she is up but then to have it off and do some desensitization work when she is off her feet.. The patient expressed agreement with and understanding of this plan of care. The patient understands to contact us if they have any other questions or concerns. The above documentation was completed using [employer] voice recognition software. Yenifer Ellis MD Department of Orthopaedics [facility] Pager: [phone] documented in this encounter Plan of Treatment Not on file documented as of this encounter Visit Diagnoses Diagnosis Post-traumatic osteoarthritis of right ankle Hx R triple arthrodesis s/p subtalar screw removal, revision CC arthrodesis 05/04/22 (Dr. Ellis) Other postprocedural status documented in this encounter Care Teams Bonderizer Relationship Specialty Start Date End Date Avery Caballero MD [address] [place] [id number] PCP - General 04/15/14 documented as of this encounter
--- OUTSIDE RECORDS SUMMARY | 2024-04-08 18:07 | XMS_ITS | Encounter Summary ---
[place] [address] Care Team Providers Care Pmo Lead Name Role Phone Avery Caballero MD Primary Care Provider [phone] Encounter Details Date Type Department Care Team (Latest Contact Info) Description 05/11/2022 11:30 AM EDT [place] [address] Nonunion after arthrodesis; Status post ankle arthrodesis; Post-traumatic osteoarthritis of right ankle Social History Tobacco Use Types Packs/Day Years Used Date Smoking Tobacco: Never Smokeless Tobacco: Never Alcohol Use Standard Drinks/Week Comments No 0 (1 standard drink = 0.6 oz pur e alcohol) Sex and Gender Information Value Date Recorded Sex Assigned at Not on file Gender Identity Not on file Sexual Orientation Not on file documented as of this encounter Progress Notes * Larry Avilez - 05/11/2022 11:30 AM EDT Hannah Ling presents to the clinic for a splint off per Dr. Ellis. The splint was intact upon arrival and taken off. The patient tolerated this procedure well. The patient's skin was intact. Dressed incision with 4x4 and kirlex. Provided some extra supplies if needed. Per Dr. Ellis's request patient was placed into a tall walker boot and will continue NWB. They will follow-up on 05/16/22. documented in this encounter Plan of Treatment Not on file documented as of this encounter Visit Diagnoses Diagnosis Nonunion after arthrodesis Status post ankle arthrodesis Other postprocedural status Post-traumatic osteoarthritis of right ankle documented in this encounter Care Teams Pmo Lead Relationship Specialty Start Date End Date Avery Caballero MD [address] [place] [address] PCP - General 04/15/14 documented as of this encounter
--- OUTSIDE RECORDS SUMMARY | 2024-04-08 18:07 | XMS_ITS | Encounter Summary ---
Author Organization [facility] [place] [address] Care Team Providers Care Sales Account Coordinator Name Role Phone Aveyr Caballero MD Primary Care Provider [phone] Encounter Details Date Type Department Care Team (Latest Contact Info) Description 06/13/2022 11:48 AM EDT - 06/13/2022 11:59 PM EDT Hospital Encounter XRay at [address] [place] [address] Jacinda Benoit APRN [facility] [place] [address] Status post ankle arthrodesis Discharge Disposition: Home [...] (SUPER B COMPLEX ORAL) Take by mouth. Tdhngtcagkwts-Ig-Fjrc-M inerals Tab Take by mouth. Women's one a day gummy buPROPion XL (Wellbutrin XL) 150 mg Tablet Extended Release 24 hr 06/17/2021 06/21/2022 documented as of this encounter Plan of Treatment Not on file documented as of this encounter Procedures Procedure Name Priority Date/Time Associated Diagnosis Comments XR FOOT MIN 3 VIEWS RIGHT Routine 06/13/2022 12:11 PM EDT Status post ankle arthrodesis documented in [...] have questions please contact the health rn managed care that requested your imaging first. ? Narrative 06/13/2022 1:58 PM EDT EXAMINATION: XR [...] who have questions please contactthe health rn managed care that requested your imaging first. Jacinda Benoit CISSP IMG DX ORDERABLES documented in this encounter Visit Diagnoses Diagnosis Status post ankle arthrodesis Other postprocedural status documented in this encounter Care Teams Sales Account Coordinator Relationship Specialty Start Date End Date Avery Caballero MD [address] [place] [address] PCP - General 04/15/14 documented as of this encounter
--- OUTSIDE RECORDS SUMMARY | 2024-04-08 18:08 | XMS_ITS | Encounter Summary ---
[place] [address] Care Team Providers Care Strip Feeder Name Role Phone Avery Caballero MD Primary Care Provider [phone] Reason for Visit * Reason Comments Follow Up Surgery Drain removal Encounter Details Date Type Department Care Team (Latest Contact Info) Description 07/30/2015 10:00 AM EST Clinical [place] [address] Surgery follow-up Social History Tobacco Use Types Packs/Day Years Used Date Smoking Tobacco: Never Smokeless Tobacco: Never Alcohol Use Standard Drinks/Week Comments No 0 (1 standard drink = 0.6 oz pur e alcohol) Sex and Gender Information Value Date Recorded Sex Assigned at Not on file Gender Identity Not on file Sexual Orientation Not on file documented as of this encounter Patient Instructions * Patient Instructions* Katey Bach LPN - 07/30/2015 10:27 AM EST We have removed your drain(s) and applied a dressing. You may remove the dressing in 24 hours and shower. After showering, you may cover the drain site(s) with a bandaid. The drain site is typically closed in approximately three days. Please call the clinic with any questions or concerns @ [phone] Sunday through Sunday from 8-5. On weekends, nights, or holidays, call the Main Hospital number @ [phone] and ask for the Plastic Surgeon radar air traffic controller. documented in this encounter Progress Notes * Katey Bach LPN - 07/30/2015 10:25 AM EST Patient was seen by this commercial lines underwriter for removal of breast drains s/p a lira pattern BBR And bilateral brachioplasty on 07/23/2015. Two arm drains were removed one on the Left and one on the Right without complication, drain sites cleansed with a wound cleanser and dry dressings reapplied - with instructions to leave this dressing in place for 24 hours. Both breasts are soft and equal in size. Swelling is moderate on the right and mild - moderate on the left. Ecchymosis is no on the right and mild on the left. The incision lines are well approximated with skin glue intact. The NACs have good perfusion. Nipples have normal projection on the right and is flush with the areola on the left. Areolar incisions are approximated with no drainage. Dry dressings were replaced. a Surgical bra fitted and in use. Bilateral arm incisions are approximated with seng. There is no sign of infection. Drainage is scant. Swelling is mild to moderate at both arms despite arm sleeves Patient denies nausea or vomiting. Hannah Ling was advised to drink extra water for the next few days to help reduce anesthesia effects and replace fluid loss. Increasing protein in the diet through high protein foods or drinks, such as Ensure, Resource or Boost was also recommended for the next 2-3 days, as long as the nutritional recommendations are not contraindicated. Client reports 10 for pain. Instructions on drain site and incisional care, showering, pain control, and activity restrictions as well as parameters for normal post operative swelling and bruising were reviewed. Plan: follow up with Varsha Lima on 08/03/2015 . documented in this encounter Plan of Treatment Not on file documented as of this encounter Visit Diagnoses Diagnosis Surgery follow-up Follow-up examination, following unspecified surgery documented in this encounter Care Teams Strip Feeder Relationship Specialty Start Date End Date Avery Caballero MD [address] [place] [address] PCP - General 04/15/14 documented as of this encounter
--- OUTSIDE RECORDS SUMMARY | 2024-04-08 18:08 | XMS_ITS | Encounter Summary ---
Author Organization [facility] [place] [address] Care Team Providers Care Manager Supply Chain Name Role Phone Avery Caballero MD Primary Care Provider [phone] Encounter Details Date Type Department Care Team (Latest Contact Info) Description 03/12/2017 - 03/12/2017 11:59 PM EDT Hospital Encounter [place] [address] Julio C Amaro MD [facility] DR ORTHOPAED[place] [address] Pain Discharge Disposition: Home Social History Tobacco Use [...] Sig Dispensed Refills Start Date End Date cyanocobalamin 500 mcg Tablet Take 500 mcg [...] (SUPER B COMPLEX ORAL) Take by mouth. Ndobkwwkdwrrn-Zh-Rmt n-Minerals Tab Take by mouth. Women's one a day gummy polyethylene glycol (MIRALAX) 17 gram Powder in Packet Take 17 g by mouth nightly. 04/28/2019 ursodiol (ACTIGALL) 300 mg CapsuleIndications:c holelithiasis prevention Take 300 mg by mouth 2 times daily. Indications: Cholelithiasis Prevention 04/28/2019 omeprazole (PRILOSEC) 40 mg capsule Take 40 mg by mouth daily. 04/28/2019 fluticasone-salmeter ol (ADVAIR DISKUS) 250-50 mcg/dose diskus inhaler Inhale 1 puff into the lungs every 12 hours. 09/23/2021 documented as of this encounter Plan of Treatment Not on file documented as of this encounter Procedures Procedure Name Priority Date/Time Associated Diagnosis Comments FILM LIBRARY STORAGE ONLY MR LOWER EXTREMITY Routine 03/12/2017 12:00 AM EDT Pain documented in this encounter Results * Film Library- Storage Only MR Lower Extremity (03/12/2017 12:00 AM EDT) Narrative [facility] - 07/17/2017 12:53 PM EST This exam is for storage only and is auto-finalizing. Julio C Amaro MD G FILM LIBRARY ORD ERABLES Performing Organization Address City/State/[facility] Co de Phone Number [place], [place] documented in this encounter Visit Diagnoses Diagnosis Pain Generalized pain documented in this encounter Care Teams Manager Supply Chain Relationship Specialty Start Date End Date Avery Caballero MD [address] [place] [address] PCP - General 04/15/14 documented as of this encounter
--- OUTSIDE RECORDS SUMMARY | 2024-04-08 18:08 | XMS_ITS | Encounter Summary ---
Author Organization [facility] Address [facility] [place] [address] Care Team Providers Care Brewery Representative Name Role Phone Avery Caballero MD Primary Care Provider [phone] Encounter Details Date Type Department Care Team (Late st Contact Info) Description 06/20/2021 11:30 AM EDT Office Visit Dermatology at [address] [address] Sally Coyle MD [facility] [address] [place] [address] Seborrheic keratosis Social History Tobacco Use Types Packs/Day Years Used Date Smoking Tobacco: Never Smokeless Tobacco: Never Alcohol Use Standard Drinks/Week Comments No 0 (1 standard drink = 0.6 oz pur e alcohol) Sex and Gender Information Value Date Recorded Sex Assigned at Not on file Gender Identity Not on file Sexual Orientation Not on file documented as of this encounter Progress Notes * Sally Long MD - 06/20/2021 11:30 AM EDT Cosmetic visit: SK Removal Patient here for cosmetic treatment of SKs. - Discussed cosmetic removal with cryotherapy. Patient was quoted $100 for removal of 1-10, which was paid at the time of checkout. - Liquid Nitrogen Procedure - two freeze thaw cycles Number of lesions - 5 The patient's consent for liquid nitrogen was obtained. Risks and benefits were explained. The possible need for additional liquid nitrogen was reviewed. Risks of increased pigmentation, decreased pigmentation, blister formation, infection, pain, and recurrence were all discussed. The patient tolerated the procedure well. Wound care was reviewed. - Call within 30 days if not resolved for no charge touch up visit Note initiated by Sally Long MD Reviewed and signed by: Sally Long MD Dermatology [facility] documented in this encounter Plan of Treatment Not on file documented as of this encounter Visit Diagnoses Diagnosis Seborrheic keratosis Other seborrheic keratosis documented in this encounter Care Teams Brewery Representative Relationship Specialty Start Date End Date Avery Caballero MD [address] [place] [address] PCP - General 04/15/14 documented as of this encounter
--- OUTSIDE RECORDS SUMMARY | 2024-04-08 18:08 | XMS_ITS | Encounter Summary ---
Author Organization [facility] [place] [address] Care Team Providers Care Footwear Sales Representative Name Role Phone Avery Caballero MD Primary Care Provider [phone] Encounter Details Date Type Department Care Team (Late st Contact Info) Description 01/24/2021 Ancillary Procedure [place] [address] Yenifer Ellis MD [facility] [place] [address] Social History Tobacco Use Types Packs/Day Years [...] Associated Diagnosis Comments FILM LIBRARY STORAGE ONLY DX FOOT Routine 01/24/2021 12:00 AM EDT documented in this encounter Results * Film Library- Storage Only DX Foot (01/24/2021 12:00 AM EDT) Narrative [facility] - 07/21/2021 3:18 PM EST This exam is auto-finalizing. It's purpose is for storage only. Yenifer Ellis MD IM FILM LIBRARY ORD ERABLES [place], [place] documented in this encounter Visit Diagnoses Not on filedocumented in this encounter Care Teams Footwear Sales Representative Relationship Specialty Start Date End Date Avery Caballero MD [address] [place] [address] PCP - General 04/15/14 documented as of this encounter
--- OUTSIDE RECORDS SUMMARY | 2024-04-08 18:08 | XMS_ITS | Encounter Summary ---
Author Organization [facility] [place] [address] Care Team Providers Care Shank Stitcher Name Role Phone Avery Caballero MD Primary Care Provider [phone] Encounter Details Date Type Department Care Team (Late st Contact Info) Description 06/13/2021 Ancillary Procedure [place] [address] Yenifer Ellis MD [facility] [place] [address] Social History Tobacco Use Types Packs/Day Years [...] FILM LIBRARY STORAGE ONLY DX FOOT Routine 06/13/2021 12:00 AM EDT documented in this encounter Results * Film Library- Storage Only DX Foot (06/13/2021 12:00 AM EDT) Narrative [facility] - 07/21/2021 3:26 PM EST This exam is auto-finalizing. It's purpose is for storage only. Yenifer Ellis MD IM FILM LIBRARY ORD ERABLES [place], [place] documented in this encounter Visit Diagnoses Not on filedocumented in this encounter Care Teams Shank Stitcher Relationship Specialty Start Date End Date Avery Caballero MD [address] [place] [address] PCP - General 04/15/14 documented as of this encounter
--- OUTSIDE RECORDS SUMMARY | 2024-04-08 18:08 | XMS_ITS | Encounter Summary ---
Author Organization [facility] [place] [address] Care Team Providers Care Surgical Supply Assistant Name Role Phone Avery Caballero MD Primary Care Provider [phone] Encounter Details Date Type Department Care Team (Late st Contact Info) Description 03/21/2021 Ancillary Procedure [place] [address] Yenifer Ellis MD [facility] [address] [place] [address] Social History Tobacco Use Types Packs/Day Years [...] FILM LIBRARY STORAGE ONLY DX FOOT Routine 03/21/2021 12:00 AM EDT documented in this encounter Results * Film Library- Storage Only DX Foot (03/21/2021 12:00 AM EDT) Narrative [facility] - 07/21/2021 3:22 PM EST This exam is auto-finalizing. It's purpose is for storage only. Yenifer Ellis MD IM FILM LIBRARY ORD ERABLES [place], [place] documented in this encounter Visit Diagnoses Not on filedocumented in this encounter Care Teams Surgical Supply Assistant Relationship Specialty Start Date End Date Avery Caballero MD [address] [place] [address] PCP - General 04/15/14 documented as of this encounter
--- OUTSIDE RECORDS SUMMARY | 2024-04-08 18:08 | XMS_ITS | Encounter Summary ---
Author Organization [facility] [place] [address] Care Team Providers Care Retail Operations Specialist Name Role Phone Avery Caballero MD Primary Care Provider [phone] Encounter Details Date Type Department Care Team (Late st Contact Info) Description 03/19/2019 6:20 PM EDT Ancillary Procedure [place] [address] Julio C Amaro MD [facility] [place] [address] Social History Tobacco Use Types Packs/Day Years [...] Diagnosis Comments FILM LIBRARY STORAGE ONLY DX ANKLE Routine 03/19/2019 6:15 PM EDT documented in this encounter Results * Film Library- Storage Only DX Ankle (03/19/2019 6:15 PM EDT) Narrative [facility] - 03/19/2019 6:15 PM EDT This exam is auto-finalizing. It's purpose is for storage only. Julio C Amaro MD IMG FILM LIBRARY ORD ERABLES [place], [place] documented in this encounter Visit Diagnoses Not on filedocumented in this encounter Care Teams Retail Operations Specialist Relationship Specialty Start Date End Date Avery Caballero MD [address] [place] [address] PCP - General 04/15/14 documented as of this encounter
--- OUTSIDE RECORDS SUMMARY | 2024-04-08 18:08 | XMS_ITS | Encounter Summary ---
[place] [address] Care Team Providers Care Ring Rolling Machine Operator Name Role Phone Avery Caballero MD Primary Care Provider [phone] Reason for Visit * Reason Onset Date Comments Referral 07/25/2019 Encounter Details Date Type Department Care Team (Late st Contact Info) Description 07/25/2019 [place] [id number] Pat Suarez Referral Social History Tobacco Use Types Packs/Day Years [...] encounter Miscellaneous Notes * Telephone Encounter - Pat Suarez - 07/25/2019 12:22 PM EST Caller and relationship to patient (if other than patient): [facility] Message or Reason for Call: [facility] called to let us know that Hannah declined the appointment there. They have closed the referral Appt Needed and Reason: n/a Provider: Rudolph Monsalve documented in this encounter Plan of Treatment Not on file documented as of this encounter Visit Diagnoses Not on filedocumented in this encounter Care Teams Ring Rolling Machine Operator Relationship Specialty Start Date End Date Avery Caballero MD [address] [place] [address] PCP - General 04/15/14 documented as of this encounter
--- OUTSIDE RECORDS SUMMARY | 2024-04-08 18:08 | XMS_ITS | Encounter Summary ---
[facility] Organization [facility] [place] [address] Care Team Providers Care Centura Technical Lead Senior Developer Name Role Phone Avery Caballero MD Primary Care Provider [phone] Reason for Visit * Reason Comments Wound Check Encounter Details Date Type Department Care Team (Late st Contact Info) Description 12/18/2015 2:00 PM EDT - 12/18/2015 6:33 PM EDT [place] [address] Gabriel Valiente MD [facility] [place] [address] Ulcer of skin of breast (Primary Dx) Discharge Disposition: Home Social History Tobacco Use [...] Sign Reading Time Taken Comments Blood Pressure 112/73 12/18/2015 5:48 PM EDT Pulse 70 12/18/2015 5:48 PM EDT Temperature 36.7 ??C (98.1 ??F) 12/18/2015 5:48 PM ED T Respiratory Rate 18 12/18/2015 5:48 PM EDT Oxygen Saturation 100% 12/18/2015 5:48 PM EDT Inhaled Oxygen Concentration - - Weight 81.2 kg (179 lb) 12/18/2015 12:37 PM EDT Height - - Body Mass Index 36.13 07/23/2015 10:59 AM EST documented in this encounter Discharge Instructions * Discharge Instructions* Tri Panda MD - 12/18/2015 6:28 PM EDT Please take your doxy as prescribed. Follow up in clinic as needed. * Patient Instructions* Yeyo Hollins MD - 12/18/2015 5:55 PM EDT Take antibiotics as provided Xeroform to the open wound daily covered with gauze Only wear sports bras until wound is healed May shower, do not submerge wound in water for prolonged period of time Call if the wound opens up more, spreading redness, drainage of pus, fever >101 documented in this encounter Medications at Time of Discharge [...] (SUPER B COMPLEX ORAL) Take by mouth. Ulcfcejjhadxf-Bc-Zbv n-Minerals Tab Take by mouth. Women's one a day gummy doxycycline (VIBRA-TABS) 100 mg Tablet Take 1 tablet by mouth 2 times daily for 10 days. 20 tablet 0 12/18/2015 12/28/2015 fluconazole (DIFLUCAN) 150 mg Tablet Take 1 tablet by mouth once for 1 dose. 1 tablet 0 12/18/2015 12/18/2015 polyethylene glycol (MIRALAX) 17 gram Powder in [...] hours. 09/23/2021 documented as of this encounter ED Notes * Jese Lockhart NRP - 12/18/2015 5:30 PM EDT Pt back from [place] * Gabriel Valiente MD - 12/18/2015 2:43 PM EDT Images from the original note were not included. CC: Wound problem HPI Hannah Ling is a 50 y.o. female presents to ED for wound check to L breast. Pt is s/p B/L breastand arm reduction by Plastic Surgery in July 2015. Pt notes wound dehisced about 2-3 weeks ago,has had 2 rounds of Abx for unhealing incisions ending most recently November 10 s/p 10 days of DS bactrim. Pt notes yesterday pain increased to incision site with increased drainage. Denies fevers athome. Pain with movement 4/10 which is unusual for her. Sent by Plastic Surgery for evaluation. ?? Review of Systems: Review of Systems Constitutional: Negative for fever, chills and diaphoresis. HENT: Negative for congestion and sore throat. Eyes: Negative for visual disturbance. Respiratory: Negative for cough and shortness of breath. Cardiovascular: Negative for chest pain and palpitations. Gastrointestinal: Negative for nausea, vomiting, abdominal pain and diarrhea. Musculoskeletal: Negative for back pain, neck pain and neck stiffness. Skin: Positive for wound. Negative for rash. Neurological: Negative for headaches. Psychiatric/Behavioral: Negative for agitation. Patient Vitals for the past 24 hrs: BP Temp Temp src Pulse Resp SpO2 Weight 12/18/15 1748 112/73 mmHg 36.7 ??C (98.1 ??F) Oral 70 18 100 % - 12/18/15 1237 104/79 mmHg 36.9 ??C (98.4 ??F) Oral 85 18 98 % 81.194 kg (179 lb) Physical Exam: Physical Exam Constitutional: She is oriented to person, place, and time. She appears well- developed and well-nourished. No distress. HENT: Head: Normocephalic and atraumatic. Mouth/Throat: Oropharynx is clear and moist. Eyes: Pupils are equal, round, and reactive to light. Neck: Normal range of motion. Neck supple. No thyromegaly present. Cardiovascular: Normal rate, regular rhythm and normal heart sounds. Exam reveals no gallop and no friction rub. No murmur heard. Pulmonary/Chest: Effort normal and breath sounds normal. No respiratory distress. She has no wheezes. She exhibits no tenderness. Abdominal: Soft. Bowel sounds are normal. She exhibits no distension. There is no tenderness. Musculoskeletal: Normal range of motion. Neurological: She is alert and oriented to person, place, and time. Skin: Skin is warm and dry. Psychiatric: She has a normal mood and affect. Nursing note and vitals reviewed. ED Course: - Patient was evaluated and discussed with Dr. Valiente - Medications, allergies and past medical history reviewed. -I have reviewed labs to be notable for: -Imaging: I reviewed US breast which showed superficial fluid collection, no foreign body, no abscess. -Consults: We spoke with Plastics who recommended abx and follow up. MDM: Pt presents with ulcer under L breast s/p 2 courses of abx for similar issues after a breast reduction 2014. Pt has no systemic s/s and US shows no evidence of abscess. Assessment and Plan: Assessment: 50 y.o. female with ulceration under L breast s/p breast reduction surgery Return precautions were verbally discussed with the patient and written in discharge instructions, including fevers, shortness of breath, abdominal pain, nausea/vomiting, or other concerns. The patient expressed understanding that she could come back to the ED at any time and agreed to the follow-up plan. Plan: - Cipro as outpatient - Follow up with Plastics - Return precautions given and patient verbalized understanding. Tri Panda MD Resident 12/18/15 8679 ED ATTENDING ADDENDUM: The patient was seen in conjunction with Dr. Panda, the resident physician. I have independently performed the tian portions of the history and physical exam. I have reviewed all diagnostic studies personally including labs, imaging studies and EKG's. I have reviewed the patient's chart where indicated. I have also reviewed/obtained the allergies, medication, past medical history, and social history as documented in other parts of the chart. I have discussed the details of the case with the resident and agree with the all tian portions of the H&P and plan as described in the resident noteabove. Gabriel Valiente MD 01/01/16 1220 documented in this encounter Miscellaneous Notes * Consult Note - Yeyo Hollins MD - 12/18/2015 7:34 PM EDT Plastic Surgery Consult Note: HPI: 50 y.o female s/p bilateral reduction mammoplasty in July 2015. Since surgery patient continuesto have issues with her left breast. She continues to have wound breakdown with intermittent drainage from the T junction. Patient was given two rounds of antibiotics for local erythema which patientstates nearly closes the wound only to have reopen and drain few days after cessation. She states that overnight she had copious drainage from the site of serous drainage, she denies f/c. She reportssome pain around the site of question. ROS: negative except for as mentioned above. Past Medical History Diagnosis Date ??? Allergy ??? Breathing problem ??? Musculoskeletal disease ??? ENT disease ??? Eye problems ??? Digestive problems ??? GERD (gastroesophageal reflux disease) Past Surgical History Procedure Laterality Date ??? Cranio/maxillofacial surg unlisted ??? Pro unlisted px pharynx adenoids/tonsils ??? Pro unlisted px female gen sys ??? Pro unlisted procedure, musculoskeletal system, general ??? Pro unlisted diagnostic gastroenterology procedure ??? Pro excise excess skin tissue, abdomen, add-on 06/19/2014 ABDOMINOPLASTY EXC,W/ UMBILICAL TRANSPOSITION, FASCIAL PLICATION performed by Hiram Barrow MD at [facility] MAIN OR ??? Pro excise excess skin tissue, thigh 06/19/2014 EXCISION EXCESSIVE SKIN AND TISSUE-THIGH performed by Hiram Barrow MD at [facility] MAIN OR ??? Pro suct jamin lipectomy, low extrem 06/19/2014 SUCTION ASSISTED LIPECTOMY, LOWER EXTREMITY-HIRAL performed by Hirma Barrow MD at [facility] OR ??? Appendectomy ??? Pro colonoscopy, biopsy N/A 10/06/2014 COLONOSCOPY FLEXIBLE, WITH BX performed by Bassem Norman MD at [facility] ENDOSCOPY ??? Pro upper gi endoscopy, biopsy N/A 10/06/2014 EGD WITH BIOPSY performed by Bassem Norman MD at [facility] ENDOSCOPY ??? Pro reduction of large breast Bilateral 07/23/2015 REDUCTION MAMMOPLASTY, HIRAL performed by Hiram Barrow MD at [facility] OR ??? Pro excise excess skin tissue, arm Bilateral 07/23/2015 EXCISION, SKIN AND SUB-Q TISSUE, ARM-HIRAL performed by Hiram Barrow MD at [facility] OR ??? Pro suct jamin lipectomy, trunk Bilateral 07/23/2015 SUCTION ASSISTED LIPECTOMY,TRUNK performed by Hiram Barrow MD at [facility] MAIN OR No current facility-administered medications on file prior to encounter. Current Outpatient Prescriptions on File Prior to Encounter Medication Sig Dispense Refill ??? cyanocobalamin 500 mcg Tablet Take 500 mcg by mouth daily. ??? polyethylene glycol (MIRALAX) 17 gram Powder in Packet Take 17 g by mouth nightly. ??? acetaminophen (TYLENOL) 325 mg Tablet Take 2 tablets by mouth every 6 hours as needed for Pain.30 tablet 1 ??? senna (SENOKOT) 8.6 mg Tablet Take 1 tablet by mouth daily. ??? ursodiol (ACTIGALL) 300 mg Capsule Take 300 mg by mouth 2 times daily. Indications: Cholelithiasis Prevention ??? omeprazole (PRILOSEC) 40 mg capsule Take 40 mg by mouth daily. ??? montelukast (SINGULAIR) 10 mg tablet Take 10 mg by mouth nightly. ??? fluticasone (FLONASE) 50 mcg/actuation nasal spray 1 spray daily. ??? fluticasone-salmeterol (ADVAIR DISKUS) 250-50 mcg/dose diskus inhaler Inhale 1 puff into the lungs every 12 hours. ??? Cholecalciferol, Vitamin D3, 2,000 unit Cap Take by mouth. ? ? FERROUS FUMARATE/VIT BCOMP&C (SUPER B COMPLEX ORAL) Take by mouth. ??? Rcftlqvpfvmva-Op-Lgry-Minerals Tab Take by mouth. Women's one a day gummy Allergies Allergen Reactions ??? Latex Other (See Comments) Localized blister/swelling/open skin ??? Adhesive Tape Hives No silk tape; paper tape is fine ??? Meclizine Other (See Comments) unresponsive ??? Tegaderm [Transparent Dressings] Rash Raw skin instantly and hives ??? Unable To Find [Unclassified Drug] Steri strips History Social History ??? Marital Status: Spouse Name: N/A Number of Children: N/A ??? Years of Education: N/A Occupational History ??? Not on file. Social History Main Topics ??? Smoking status: Never Smoker ??? Smokeless tobacco: Never Used ??? Alcohol Use: No ??? Drug Use: No ??? Sexual Activity: Not on file Other Topics Concern ??? Exercise: Patient Reported Yes ??? Abuse Or Threat: Physical, Sexual, Verbal No Social History Narrative PE: Alert and oriented x4 nad NSR Breathing is non labored Left breast: Ulcerative wound at the t-junction, minimal surrounding erythema. The wound is flat, no underlying tracking. No palpable fluid collections appreciated U/S: no appreciable fluid collection seen A/P 50 y.o female with persistent wound after reduction mammoplasty at the t junction. I suspect the wound is secondary to local trauma from the bra with metal bar that she is wearing. I will prescribe adose of doxycycline. The patient is only to wear a sports bra for support. Xeroform and gauze for local wound care. -Follow up in two weeks for a wound check. If this course fails to treat the wound, we discussed the possibility of excising the ulcer. * ED Triage - Elsa Dang RN - 12/18/2015 12:39 PM EDT Pt presents to ED for wound check to L breast. Pt is s/p B/L breast reduction by Plastic Surgery 2014. Pt notes wound dehisced about 2-3 weeks ago, has had multiple rounds of Abx for unhealing incisions. Pt notes yesterday pain increased to incision site with moderate increased in drainage. Denies fevers at home. Pain with movement 4/10. Skin otherwise w/p/d, RR even and unlabored. Sent by Plastic Surgery for evaluation. documented in this encounter Plan of Treatment Not on file documented as of this encounter Procedures Procedure Name Priority Date/Time Associated Diagnosis Comments US BREAST SCAN ONLY LIMITED LEFT STAT 12/18/2015 5:30 PM EDT documented in this encounter Results * US Breast Scan Only Left (12/18/2015 5:30 PM EDT) Anatomical Region Laterality Modality Chest, T-spine Left Ultrasound Addenda Addendum by Avery Wiggins MD on 12/20/2015 9:56 AM EDT BI-RADS 2, benign findings. Impressions 12/18/2015 5:33 PM EDT IMPRESSION: Edema, mild fluid, underlying the surface wound, without abscess identified. Note: These findings were discussed with the R0 provider, Dr. Valiente Narrative 12/18/2015 5:33 PM EDT EXAMINATION: US BREAST SCAN ONLY LIMITED LEFT CLINICAL HISTORY: pt with bilateral breast reduction 07/2015, now with increasing drainage- r/o underlying fluid collection TECHNIQUE: Targeted sonography of the left breast at 6:00 at the area of open wound. Sterile gel was applied, and targeted linear ultrasound, high-resolution. COMPARISON: None FINDINGS: At the area of open wound, there is mild skin edema with underlying mild hyperemia and fluid tracking without abscess formation identified. Gabriel Valiente MD IMG US GEN ORDERABLE S documented in this encounter Visit Diagnoses Diagnosis Ulcer of skin of breast- Primary Inflammatory disease of breast documented in this encounter Care Teams [employer] Technical Lead Senior Developer Relationship Specialty Start Date End Date Avery Caballero MD [address] [place] [address] PCP - General 04/15/14 documented as of this encounter
--- OUTSIDE RECORDS SUMMARY | 2024-04-08 18:08 | XMS_ITS | Encounter Summary ---
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 Post-traumatic osteoarthritis of right ankle Yenifer Ellis MD [facility] [place] [address] [facility] [address] [place] [phone] Referral ID Status Reason Start Date Expiration Date V isits Requested Visits Authorized [id number] Closed Consult, Test & Treat 11/10/2021 11/10/2022 1 1 Encounter Details Date Type Department Care Team (Late st Contact Info) Description 11/10/2021 [place] [address] Yenifer Ellis MD [facility] [place] [address] Right foot pain; Status post ankle arthrodesis; Nonunion after arthrodesis; Post-traumatic osteoarthritis of right ankle Social [...] as of this encounter Plan of Treatment Scheduled Referrals Name Type Priority Associated Diagnoses Orde r Schedule Referral to Plastic Surgery Outpatient Referral Routine Right foot pain 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
--- OUTSIDE RECORDS SUMMARY | 2024-04-08 18:08 | XMS_ITS | Encounter Summary ---
Author Organization [facility] [place] [address] Care Team Providers Care Electron Tube Assembler Name Role Phone Avery Caabllero MD Primary Care Provider [phone] Encounter Details Date Type Department Care Team (Late st Contact Info) Description 10/18/2020 Ancillary Procedure [place] [address] Yenifer Ellis MD [facility] [place] [address] Social History Tobacco Use Types Packs/Day Years [...] FILM LIBRARY STORAGE ONLY DX FOOT Routine 10/18/2020 12:00 AM EST documented in this encounter Results * Film Library- Storage Only DX Foot (10/18/2020 12:00 AM EST) Narrative [facility] - 07/21/2021 3:14 PM EST This exam is auto-finalizing. It's purpose is for storage only. Yenifer Ellis MD IM FILM LIBRARY ORD ERABLES [place], [place] documented in this encounter Visit Diagnoses Not on filedocumented in this encounter Care Teams Electron Tube Assembler Relationship Specialty Start Date End Date Avery Caballero MD [address] [place] [address] PCP - General 04/15/14 documented as of this encounter
--- OUTSIDE RECORDS SUMMARY | 2024-04-08 18:08 | XMS_ITS | Encounter Summary ---
Author Organization [facility] [place] [address] Care Team Providers Care Prepress Stripper Name Role Phone Avery Caballero MD Primary Care Provider [phone] Encounter Details Date Type Department Care Team (Late st Contact Info) Description 02/25/2019 Ancillary Procedure [place] [address] Julio C Amaro MD [facility] [place] [address] Social History Tobacco Use Types Packs/Day Years [...] Diagnosis Comments FILM LIBRARY STORAGE ONLY MR FOOT Routine 02/25/2019 12:00 AM EDT documented in this encounter Results * Film Library- Storage Only MR Foot (02/25/2019 12:00 AM EDT) Narrative [facility] - 03/19/2019 6:13 PM EDT This exam is auto-finalizing. It's purpose is for storage only. Julio C Amaro MD IMG FILM LIBRARY ORD ERABLES [place], [place] documented in this encounter Visit Diagnoses Not on filedocumented in this encounter Care Teams Prepress Stripper Relationship Specialty Start Date End Date Avery Caballero MD [address] [place] [address] PCP - General 04/15/14 documented as of this encounter
--- OUTSIDE RECORDS SUMMARY | 2024-04-08 18:08 | XMS_ITS | Encounter Summary ---
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 [place] [address] Nonunion after arthrodesis Discharge Disposition: Home Social History Tobacco [...] Sign Reading Time Taken Comments Blood Pressure 134/69 05/04/2022 12:45 PM EDT Pulse 76 05/04/2022 12:50 PM EDT Temperature 37.2 ??C (99 ??F) 05/04/2022 12:03 PM EDT Respiratory Rate 17 05/04/2022 12:30 PM EDT Oxygen Saturation 95% 05/04/2022 12:50 PM EDT Inhaled Oxygen Concentration - - Weight 88.5 kg (195 lb) 05/04/2022 7:51 AM EDT Height 149.9 cm (4' 11) 05/04/2022 7:51 AM EDT Body Mass Index 39.39 05/04/2022 7:51 AM EDT documented in this encounter Discharge Instructions * Discharge Instructions* Sonia Henderson RN - 05/04/2022 8:01 AM EDT General Anesthesia Discharge Instructions Go home and rest. You may be sleepy for several hours. Take it easy as sudden position changes may cause nausea and/or dizziness. Use caution on stairs. Do not smoke if you are alone. Follow a light to regular diet as tolerated today. If nausea occurs, start with clear liquids, and progress slowly to a regular diet. Do not drive, operate machinery, drink alcoholic beverages or make any legal decisions after havinggeneral anesthesia. The medications given change your reaction time and alter your judgement. IV site -- slight redness is normal, you can use warm compresses. If tenderness and redness increases or foul drainage occurs, please contact your M.D. Patients who have had endotracheal tubes/LMA (tubes used by the anesthesia staff to ensure a safe airway during your operation) may have a sore throat. This is normal and cold liquids or soothing lozenges will help ease this discomfort. Narcotic pain medications can cause constipation, please ask the surgeons office what they recommend for prevention of this. Some non-pharmaceutical means of constipation prevention include increasing intake of fluids, eating more fruits and vegetables as well as fruit juices. If you are uncomfortable and/or unable to urinate within 8 hours of discharge and it is before 5 pm, call your physician. If it is after 5pm go to the closest emergency room or call the hospital jigger operator at [phone] and ask for physician technical assistance consultant covering for your physician. Questions or problems after 5pm or on a weekend: Call the [facility] jigger operator at and ask for the physician technical assistance consultant covering for your doctor. At 0800 am you received 1000 mg of acetaminophen- Your next dose should not be taken before 8 hourshave passed. Next dose not before- 1600 You should not take more than a total of 3000 mg of acetaminophen in a 24 hour period. SCOPOLAMINE PATCH DISCHARGE INSTRUCTIONS You are wearing a scopolamine patch.This is a medication patch used to prevent and treat nausea andvomiting after surgery. The patch is located behind your left ear. Please follow these instructions while you are wearing the patch. Try not to touch the patch. If you do touch the patch, wash your hands right away. Make sure to remove all traces of medicationfrom your hands. If the medication gets on your hands and then you touch your eyes, your vision may become blurry oryour pupils may widen. These are both normal and temporary reactions; they will go away shortly. You may remove the patch as early as: tonight BUT must remove it no later than 0830 am on Sunday. Lower Extremity Nerve Block Nerve blocks affect many types of nerves. The affected nerves control movement, pain, and normal sensation. This causes feelings such as: Weakness Numbness Tingling Heaviness A feeling that your leg or foot has fallen asleep. A nerve block can last from about 2 to 48 hours, depending on the medications used. Usually the weakness wears off first, then you will feel a numb or tingly sensation. Finally, the pain may come back. This can happen in any order. If you continue to feel the effects of the nerve block for longer than 48 hours, please call the Anesthesiology department at . Pain Medication If needed, your surgeon will give you a prescription for pain medication. Start taking this medication before the nerve block wears off. Nerve blocks sometimes wear off during the night. It is a goodidea to take your pain medicine as prescribed before going to sleep so you won't wake up with pain.The idea is to have pain medicine in your body before the nerve block wears off. To help prevent nausea, eat something before taking the pain medicine. Once a nerve block starts to wear off, it is usually completely gone within 60 minutes. It is important to have pain medicine in your system before the block wears off completely. Helpful tips to protect the part of your body that is numb. After a nerve block, you cannot feel pain, pressure, or extremes in temperature. Because your leg or foot is numb, it is more at risk for injury. Therefore.... While you are awake, try to change positions of your leg or foot often. This will help you avoid putting too much pressure on the limb for long periods of time. While sleeping, pad the blocked limb with pillows to avoid placing too much pressure on the limb. If you have a cast or a tight dressing, check the color of your toes every couple of hours. Call your doctor if any look discolored. Ask your family or support people to help with the above hints. QUESTIONS? Please call the Anesthesiology department at with concerns or after hours and ask for the anesthesiologist technical assistance consultant. There will still be some active ingredients on the patch, so fold it in half (with the sticky sidestogether) and throw it in the trash. This will help prevent others from coming into contact with it. After removing the patch, carefully wash your hands and behind your ear (or wherever the patch was placed) with soap and water. If you have not urinated in 6-8 hours after your surgery, remove the patch and call your surgeon. * Patient Instructions* Philip Pickard MD - 05/04/2022 8:46 AM EDT Orthopaedic Surgery Discharge Instructions Activity: Your weight-bearing status is - non-weight bearing of the right lower extremity. Remember to use a walker or crutches as needed for balance and protection. Your physical therapist may progress you to using a cane when appropriate. Anticoagulation: Aspirin - You have been discharged on enteric-coated Aspirin 81 mg once daily. Continue this for 30days after surgery. Take this medication with food or large amounts (240 mL) of water or milk to minimize GI irritation. Diet: Resume your usual diet but increase your intake of fluids and fiber while you are on narcoticpain meds to prevent constipation. Driving: None until you are cleared to do so by your Orthopedic surgeon. You should not drive whileyou are on narcotic pain meds as they can affect your judgment and reaction time. Call your surgeonwith any questions/concerns. Medications: Some swelling is expected after surgery. Ice and elevation are the best remedies to reduce swellingand pain. Keep your extremity properly elevated above the level of the heart i.e., fingers above palm, palm above the wrist, wrist above the elbow. Use pillows to increase elevation. Intermittently apply ice to the outside of the dressing for 20 minutes 6-8 times a day. You will want to ice and elevate for 5-7 days after surgery or as long as it hurts. We recommend 1,000 mg of Tylenol (acetaminophen) every 6-8 hours for the next 7- 10 days. You may take up to but should not exceed 4,000 mg daily. This recommendation is in the setting of a healthy liver. If you are concerned about the health of your liver or have other questions, please discuss with your primary care physician. We also recommend 600 mg of Motrin (ibuprofen) every 6-8 hours for the next 7-10 days. You may takeup to but should not exceed 2,400 mg daily. This recommendation is in the setting of healthy kidneys and gastrointestinal organs. If you are concerned about the health of your kidneys or GI organs, please discuss with your primary care physician. Administration of Tylenol (acetaminophen) and Motrin (ibuprofen) should be staggered for maximum effect. You have been discharged on a short acting narcotic. You will be on this medication for a limited period of time only. Take the smallest dose possible to control your pain. As your pain improves, take smaller and less frequent doses. The narcotic pain medication you are on may cause constipation, so increase your intake of fluids and fiber while taking this medication. You may also take stool softeners such as Mirilax and Pericolace. If you need a renewal on your narcotic pain medication, you need to give the Orthopaedic clinic adequate time to process your request. This can take up to three business days, so plan accordingly. Ice and elevation Some swelling is expected after surgery. Ice and elevation are the best remedies to reduce swellingand pain. Keep your operative extremity properly elevated above the level of the heart You may use pillows to increase elevation. Intermittently apply ice to the outside of the dressing for 20 minutes 6-8 times a day. You will want to ice and elevate for 5-7 days after surgery or as long as it hurts. Dressing / Wound: A plaster splint has been applied. Please keep it dry and cover with a bag for showers. If the splint becomes wet, you must call the office or present to your local Emergency Department for removal. Misc: Remember that ICE and elevation are very important after surgery to help decrease swelling and control pain. Use ICE for 20-30 minutes at a time and keep your leg elevated as much as possible. Call your doctor ([phone]) if you develop: Fever greater than 100.5 Severe nausea or vomiting Increasing pain that is not controlled by pain medications Increasing redness, swelling, or drainage from incisions Change in sensation FOLLOW-UP APPOINTMENTS: 1. You will have [place] appointments at [facility] as indicated below in Future Appointment and Orders. 2. You will need to have x-rays prior to your follow-up appointment listed below. Please come to Radiology, desk 3T, 1 hour BEFORE that appointment for these x-rays. Future Appointments Date Time Provider Department Center 05/16/2022 12:00 PM [facility] DX ROOM 2 Xray [facility] Rad 05/16/2022 1:00 PM Jacinda Benoit, AUTOMATIC BUFFING WHEEL [facility] [place] [facility] [facility] If you have questions or concerns: Sunday through Sunday, 8 AM - 5 PM, please call Dr. Yenifer Ellis MD's office at . If it is after 5 PM, the weekend, or holidays, please call and ask to speak with theOrthopedic resident on-call. documented in this encounter Medications at Time [...] (SUPER B COMPLEX ORAL) Take by mouth. Frtkvyvcxctdt-Eh-Bqig-M inerals Tab Take by mouth. Women's one a day gummy aspirin EC 81 mg Tablet, Delayed Release [...] 04/24/2019 06/13/2022 documented as of this encounter Progress Notes * Katja Nicole RN - 05/04/2022 1:04 PM EDT Discharge instructions and medications reviewed with patient and spouse. Both verbalized understanding. All questions answered and written copy sent home with patient. Patient ambulated to car for discharge accompanied by [facility] staff member. * Sonia Henderson RN - 05/04/2022 8:46 AM EDT Date/Procedure: Meds Given Comments 05/04/22 Versed - 2mg Tolerated well documented in this encounter H&P Notes * Faro, Yenifer D, MD - 05/04/2022 8:34 AM EDT ORTHOPEDIC PRE-OPERATIVE HISTORY AND PHYSICAL for ADMISSION, OBSERVATION OR PROCEDURE Date of : 1965 Age: 57 y.o. PCP: Avery Caballero MD Presenting Diagnosis/Chief Complaint: Right foot fat pad redundancy and CC nonunion History of Present Illness: Hannah Ling is a 57 y.o. female who presents for pre-operative examination. Please see Dr. Ellis's note for full details of the patient's specific problem. Patient denies any changes since last seen in clinic. Denies fevers, chills, headache, dizziness, chest pain, or shortness of breath. Review of Systems: complete 10 system ROS performed with pertinent findings below. Pertinent items are noted in HPI. PMHx: Patient Active Problem List Diagnosis Code ??? Abdominal pannus E65 ??? Lipodystrophy E88.1 ??? Other specified aftercare following surgery Z48.89 ??? S/P panniculectomy Z98.890 ??? Macromastia N62 ??? Excess skin of arms bilaterally L98.7 ??? S/P bilateral breast reduction Z98.890 ??? Pain of right heel M79.671 ??? 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 Post-traumatic osteoarthritis of right ankle M19.171 Past Medical History: Diagnosis Date ??? Allergy ??? Breathing problem ??? Digestive problems ??? ENT disease ??? Eye problems ??? GERD (gastroesophageal reflux disease) ??? Musculoskeletal disease Past Surgical History: Procedure Laterality Date ??? APPENDECTOMY ??? PRG UNLISTED DIAGNOSTIC GASTROENTEROLOGY PROCEDURE ??? PRO COLONOSCOPY, BIOPSY N/A 10/06/2014 COLONOSCOPY FLEXIBLE, WITH BX performed by Bassem Norman MD at [facility] ENDOSCOPY ??? PRO EXCISE EXCESS SKIN TISSUE, ABDOMEN, ADD-ON 06/19/2014 ABDOMINOPLASTY EXC,W/ UMBILICAL TRANSPOSITION, FASCIAL PLICATION performed by Hiram Barrow MD at [facility] MAIN OR ??? PRO EXCISE EXCESS SKIN TISSUE, ARM Bilateral 07/23/2015 EXCISION, SKIN AND SUB-Q TISSUE, ARM-HIRAL performed by Hiram Barrow MD at [facility] MAIN OR ??? PRO EXCISE EXCESS SKIN TISSUE, THIGH 06/19/2014 EXCISION EXCESSIVE SKIN AND TISSUE-THIGH performed by Hiram Barrow MD at [facility] MAIN OR ??? PRO REDUCTION OF LARGE BREAST Bilateral 07/23/2015 REDUCTION MAMMOPLASTY, HIRAL performed by Hiram Barrow MD at [facility] MAIN OR ??? PRO SUCT BERTO LIPECTOMY, LOW EXTREM 06/19/2014 SUCTION ASSISTED LIPECTOMY, LOWER EXTREMITY-HIRAL performed by Hiram Barrow MD at [facility] MAIN OR ??? PRO SUCT BERTO LIPECTOMY, TRUNK Bilateral 07/23/2015 SUCTION ASSISTED LIPECTOMY,TRUNK performed by Hiram Barrow MD at [facility] MAIN OR ??? PRO UNLISTED CRANIO/MAXILLOFACIAL SURG ??? PRO UNLISTED PROCEDURE PHARYNX ADENOIDS/TONSILS ??? PRO UNLISTED PROCEDURE, MUSCULOSKELETAL SYSTEM, GENERAL ??? PRO UNLISTED PX FEMALE GEN SYS ??? PRO UPPER GI ENDOSCOPY, BIOPSY N/A 10/06/2014 EGD WITH BIOPSY performed by Bassem Norman MD at [facility] ENDOSCOPY Home Medications: Medications Prior to Admission Medication Sig Dispense Refill Last Dose ??? Symbicort 160-4.5 mcg/actuation HFA Aerosol Inhaler INHALE 2 PUFFS BY MOUTH TWICE A DAY 05/04/2022 at Unknown time ??? Venlafaxine 225 mg Tablet Extended Rel 24 hr daily. 4 05/04/2022 at Unknown time ??? PROVENTIL HFA 90 mcg/actuation HFA Aerosol Inhaler 05/04/2022 at Unknown time ??? ALBUTEROL INHL Inhale 1 puff into the lungs. 05/04/2022 at Unknown time ??? senna (SENOKOT) 8.6 mg Tablet Take 1 tablet by mouth daily. 05/04/2022 at Unknown time ??? fluticasone (FLONASE) 50 mcg/actuation nasal spray 1 spray daily. 05/04/2022 at Unknown time ??? ergocalciferoL, vitamin D2, (vitamin D2) 50,000 unit Capsule Take 1 capsule by mouth once a week. 12 capsule 3 ??? traMADoL (Ultram) 50 mg Tablet Take 50 mg by mouth as needed. ??? buPROPion XL (Wellbutrin XL) 150 mg Tablet Extended Release 24 hr ??? celecoxib (CELEBREX) 100 mg Capsule 3 ??? cyanocobalamin 500 mcg Tablet Take 500 mcg by mouth daily. ??? acetaminophen (TYLENOL) 325 mg Tablet Take 2 tablets by mouth every 6 hours as needed for Pain.30 tablet 1 ??? montelukast (SINGULAIR) 10 mg tablet Take 10 mg by mouth nightly. ??? Cholecalciferol, Vitamin D3, 2,000 unit Cap Take by mouth. ? ? FERROUS FUMARATE/VIT BCOMP&C (SUPER B COMPLEX ORAL) Take by mouth. ??? Gdfjwemoeayjw-Kg-Apdf-Minerals Tab Take by mouth. Women's one a day gummy Allergies: Allergies Allergen Reactions ??? Latex Other (See Comments) Localized blister/swelling/open skin ??? Adhesive Tape Hives No silk tape; paper tape is fine ??? Ibuprofen Other reaction(s): Other (See Comment) ??? Meclizine Other (See Comments) unresponsive ??? Tegaderm [Transparent Dressings] Rash Raw skin instantly and hives ??? Unable To Find [Unclassified Drug] Steri strips Family History: Non contributory Family History Problem Relation Age of Onset ??? Kidney Disease Mother ??? Diabetes Mother ??? Stroke Mother ??? Coronary Artery Disease Mother ??? Heart Disease Mother ??? High Blood Pressure Mother ??? Kidney Disease Brother ??? Coronary Artery Disease Father ??? Heart Disease Father Social History: Social History Socioeconomic History ??? Marital status: Spouse name: Not on file ??? Number of children: Not on file ??? Years of education: Not on file ??? Highest education level: Not on file Occupational History ??? Not on file Tobacco Use ??? Smoking status: Never Smoker ??? Smokeless tobacco: Never Used Vaping Use ??? Vaping Use: Never used Substance and Sexual Activity ??? Alcohol use: No ??? Drug use: No ??? Sexual activity: Not on file Other Topics Concern ??? Exercise: Patient reported Yes ??? Abuse or Threat: Physical, Sexual, Verbal No ??? Do You live alone? No ??? Tobacco in Home Not Asked Social History Narrative ??? Not on file Social Determinants of Health Financial Resource Strain: Not on file Food Insecurity: Not on file Transportation Needs: Not on file Physical Activity: Not on file Housing Stability: Not on file Physical Exam: VITALS: Temperature Temp: 36.5 ??C (97.7 ??F) Heart Rate Heart Rate: 71 Blood Pressure BP: 134/71 Respiratory Rate Resp: 16 SpO2 SpO2: 98 % No intake/output data recorded. General: alert, appears stated age and cooperative Pulmonary: equal, clear breath sounds bilaterally and no crepitus Cardiovascular: Regular rate and rhythm Assessment and Plan: 57 y.o. female with the above problem, plan to proceed to OR with Dr. Ellis forrigyoselin foot hardware removal and CC revision, fat pad reaarangement. Patient Pharmacy for outpatient medications: Tramadol to [facility] in [facility]. 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 Anesthesia: General Findings: Unfused CC joint s/p repeat denudation, arthrodesis; mobile plant pad s/p excisional debridement, suture anchor fixation Complications: None Estimated Blood Loss: 7 mL* No values recorded between 05/04/2022 9:20 AM and 05/04/2022 11:58 AM * Specimens removed during surgery: None Fluids: Intraprocedure Crystalloid Total Intake lactated ringers infusion 1000.00 mL ceFAZolin (Ancef) 2 g vial attach to sodium chloride 0.9% 100 mL Mini-Bag Plus 100.00 mL Total Intake 1100 mL Output Blood Loss 7 mL Total Output 7 mL Net Net Volume 1093 mL PRBCs: none (See Anesthesia Record/Report for Other Blood Products) Urine Output: (no urine output recorded) Drains: None Disposition: awakened from anesthesia, extubated and taken to the recovery room in a stable condition, having suffered no apparent untoward event. Condition: doing well without problems (Please see the Surgical Encounter Summary for any Implant and Specimen details pertinent to this patient.) Surgical Infection Prevention Bundle Used? No * Op Note - Yenifer Ellis MD - 05/04/2022 9:20 AM EDT [facility] [place] Patient Name: Hannah Ling : [id number] MR#: [id number] Case Date: 05/04/2022 Surgeon: Surgeon(s) and Role: * Yenifer Ellis MD - Primary * NeerajPhilip MD - Resident Jonah Thompson MS3 Preoperative diagnosis: 1. Right calcaneocuboid nonunion 2. Right hypermobile plantar fat pad 3. Right foot symptomatic hardware Postoperative diagnosis: 1. Right calcaneocuboid nonunion 2. Right hypermobile plantar fat pad 3. Right foot symptomatic hardware Principal procedures: 1. Right foot hardware removal 2. Right foot calcaneocuboid arthrodesis revision 3. Right foot plantar fat pad anchoring with soft tissue rearrangement to transfer the hypermobile fat pad laterally and anchor to the calcaneus Anesthesia: General Estimated Blood Loss: 7 mL Specimens removed during surgery: Nonunion site tissue sent for microbiology Drains: None Surgical Closure: Primary Closure - skin incision is completely closed without any wires, soto, drains or other devices Disposition: awakened from anesthesia, extubated and taken to the recovery room in a stable condition, having suffered no apparent untoward event. Condition: doing well without problems (Please see the Surgical Encounter Summary for any Implant and Specimen details pertinent to this patient.) HPI/Surgical Indications: The patient is a 57-year-old female is a history of an internal deglovingof her fat pad approximately 5 years ago. Eventually, she had a triple arthrodesis but has had to instances in which attempts have been made to anchor her hypermobile plantar fat pad down to the calcaneus through a scarring process. However, this is failed. Her triple arthrodesis has been successful for her except for the fact that she continues to have a nonunion of the calcaneocuboid joint. Thesubtalar and talonavicular joints are well-healed. After discussion with the patient the risks and benefits of operative intervention, the patient wished to proceed with surgical intervention. Specific risks discussed with the patient and her family included the risk of infection, bleeding, damage to adjacent structures, recurrent nonunion, recurrent fat pad hypermobility, wound healing problems,blood clots and need for further procedures. The patient signed an informed consent. Procedure Description: The patient was brought to the operating room and surgical timeout performed. The surgical site which been marked in the preoperative area with the patient's consent was matched to the consent in the operative suite. The entire team was in accordance as the appropriate side, s ite, patient and procedure. General anesthesia was induced and the patient was positioned in the supine position with a bump underneath the right hip. The right lower extremity was prepped and drapedin the usual sterile manner. We began with removing the subtalar screws. After cannulating both of the screws, we made small stab incisions and attempted to remove the screws with a cannulated jinriksha driver. After identifying that this was a too large cannulated jinriksha driver, we adjusted appropriately and were able to remove the screws without difficulty. The leg was elevated, exsanguinated and the tourniquetwas elevated to 300 mmHg. A curvilinear incision was made through previous curvilinear incision lateral to the midfoot. Dissection was carried sharply through skin and bluntly through subcutaneous tissues down to the extensor digitorum brevis which was dissected off of the calcaneocuboid mass. Thisallowed exposure of the underlying staple which was grossly loose. The staple is removed without dif ficulty. I then used subperiosteal dissection to fully expose the calcaneocuboid joint. Indeed, this did have a nonunion and therefore we used a combination of rongeur, curette and elevator to removethe fibrous nonunion. Once we were back to appropriate bone of good quality, we drilled both sides of the joint. The joint was then packed with allograft hydrated by recombinant human platelet derived growth factor and cancellous chips. The joint was then fixated with a 5 hole compression plate which had excellent fixation. We then turned our attention to the fat pad mobilization. Taking care to avoid the course of the sural nerve, I dissected out an elliptical shape of skin and then dissected down to the plantar aspectof the calcaneus. I was able to identify the plantar fascia as well as the scar tissue in the region between the fat pad and the plantar fascia. This was a definite potential space that was fairly mobile. I then dissected out an intermediate layer of fat to help mobilize this deep layer of fat. I then placed a 5.5 mm corkscrew anchor into the calcaneus exiting just in the subchondral region of the prior subtalar joint posterior facet and use these sutures to grasp not only the plantar fascia but also passing through that deep scar layer and bringing the plantar fat pad laterally. Additionally, I anchored the intermediate layer of fat pad to the extensor digitorum brevis fascia. This allowedthe plantar fat pad to move more laterally and have less redundancy and mobility. Copious irrigation was conducted before and after this deep closure. I then closed in a layered fashion with 2-0 Vicryl for deep tissues, 4-0 Vicryl for subcutaneous tissues and 4-0 nylon for the skin in vertical mattress sutures. The wounds were then dressed with Xeroform, 4 x 4's, cast padding placed into a bulky U-splint in a neutral position. The patient was then awakened from general anesthesia and transferred to the recovery room bed in the recovery room in a stable state. Complications: None Postoperative plan: The patient will be nonweightbearing [...] upon the findings of that CT scan. Implant Name Type Inv. Item Serial No. Last Model Maker Lot No. LRB No. Used Action GRAFT BONE FILLER 1CC DBM INJECTABLE PUTTY ALLOMATRIX ([id number]) (AUTOREQ) - [id number] IMPLANTS GRAFT BONE FILLER 1CC DBM INJECTABLE PUTTY ALLOMATRIX ([id number]) (AutoReq) [id number] [employer] - [employer]AX SURG Right 1 Implanted GRAFT BONE FILLER 1CC DBM INJECTABLE PUTTY ALLOMATRIX ([id number]) (AUTOREQ) - [id number] IMPLANTS GRAFT BONE FILLER 1CC DBM INJECTABLE PUTTY ALLOMATRIX ([id number]) (AutoReq) [id number] [employer] - [employer] Right 1 Implanted GRAFT BONE FILLER INJECTABLE 1.5CC DBM AUGMENT ([id number]) (AUTOREQ) - [id number] IMPLANTS GRAFT BONEFILLER INJECTABLE 1.5CC DBM AUGMENT ([id number]) (AutoReq) [facility] [id number] Right 1 Implanted GRAFT BONE FILLER [id number] DBM FREEZE DRIED CHIPS ([id number]) (AutoReq) - [id number] IMPLANTS GRAFT BONE FILLER [id number] DBM FREEZE DRIED CHIPS ([id number]) (AutoReq) [id number] [facility] Right 1 Implanted SUTURE ANCHOR 5.5X15MM 2-0 FIBERWIRE SDRILL TI CORKSCREW ([id number]) - [id number] IMPLANTS SUTURE ANCHOR 5.5X15MM 2-0 FIBERWIRE SDRILL TI CORKSCREW ([id number]) [employer] [place] [id number] Right 1 Implanted PLATE FLAT 6 HOLE COMP LCK TI ORTHOLOC 3DI ([id number]) (AutoReq) - [id number] IMPLANTS PLATE FLAT 6 HOLE COMP LCK TI ORTHOLOC 3DI ([id number]) (AutoReq) [facility] Right 1 Implanted SCREW 3.5X20MM MICHAEL LCK FT PURPLE TI ORTHOLOC 3DI ([id number]) (AutoReq) - [id number] IMPLANTS SCREW 3.5X20MM MICHAEL LCK FT PURPLE TI ORTHOLOC 3DI ([id number]) (AutoReq) [facility] Right 1 Implanted SCREW 3.5X24MM MICHAEL LCK FT PURPLE TI ORTHOLOC 3DI ([id number]) (AutoReq) - [id number] IMPLANTS SCREW 3.5X24MM MICHAEL LCK FT PURPLE TI ORTHOLOC 3DI ([id number]) (AutoReq) [facility] Right 1 Implanted SCREW 3.5X28MM MICHAEL LCK FT PURPLE TI ORTHOLOC 3DI ([id number]) (AutoReq) - [id number] IMPLANTS SCREW 3.5X28MM MICHAEL LCK FT PURPLE TI ORTHOLOC 3DI ([id number]) (AutoReq) [facility] Right 1 Implanted SCREW 3.5X30MM MICHAEL LCK FT PURPLE TI ORTHOLOC 3DI ([id number]) (AutoReq) - [id number] IMPLANTS SCREW 3.5X30MM MICHAEL LCK FT PURPLE TI ORTHOLOC 3DI ([id number]) (AutoReq) [facility] Right 1 Implanted SCREW 3.5X36MM MICHAEL NLCK FT BRONZE TI ORTHOLOC 3DI ([id number]) (AutoReq) - [id number] IMPLANTS SCREW 3.5X36MM MICHAEL NLCK FT BRONZE TI ORTHOLOC 3DI ([id number]) (AutoReq) [facility] Right 1 Implanted Surgical Infection Prevention Bundle Used? No Attestation: Case Date: 05/04/2022 I was present and I participated during the entire procedure (does not need to include opening and closing). Yenifer Ellis MD 05/04/2022 documented in this encounter Plan of Treatment Not on file documented as of this encounter Procedures Procedure Name Priority Date/Time Associated Diagnosis Comments XR FLUORO NO RAD <1HR - OR USE Routine 05/04/2022 11:25 AM EDT ANAEROBIC CULTURE Routine 05/04/2022 10: 07 AM EDT HC WOUND/ABSCESS CX Routine 05/04/2022 1 0:07 AM EDT ABSCESS/WOUND ASPIRATE CULTURE Routine 05/04/2022 10:07 AM EDT Adj Tiss Transfer Head, Fac, Hand 10.1-30 ([id number]) 05/04/2022 9:00 AM EDT Nonunion after arthrodesis Removal Deep Implant ([id number]) 05/04/2022 9:00 AM EDT Nonunion after arthrodesis Fusion Foot Bones, Midtarsal, Multi (31024) 05/04/2022 9:00 AM EDT Nonunion after arthrodesis REMOVAL OF IMPLANT,FOOT Routine 05/04/20 7:41 AM EDT Nonunion after arthrodesis ARTHRODESIS, MIDTARSAL OR TARSOMETATARSAL Routine 05/04/2022 7:41 AM EDT Nonunion after arthrodesis ADJ.TISSUE TRANSFER, REARRANGEMENT, 10.1 TO 30 SQ.CM, FEET Routine 05/04/2022 7:41 AM EDT Nonunion after arthrodesis documented in this encounter Results * XR Fluoro No Rad <1Hr - OR Use (05/04/2022 11:25 AM EDT) Narrative Dicom, Auditing User - 05/04/2022 11:26 AM EDT This exam is auto-finalizing. No interpretation was done. Yenifer Ellis MD IMG FLUORO ORDERABLE S * Anaerobic Culture (05/04/2022 10:07 AM EDT) Anaerobic Culture No anaerobic organisms isolated [facility] Excision Site STRUCTURE OF RIGHT FOOT / Unknown 05/04/2022 10:07 AM EDT 05/04/2022 1:58 PM EDT Comment:Right CC (calcaneal) non-union Narrative Resulting Agency Comment Spec In Lab Yenifer Ellis MD MICROBIOLOGY - GENER AL ORDERABLES Performing Organization Address City/[facility]/ZIP Co de Phone Number [facility] [place] [address] * Abscess/Wound Aspirate Culture (05/04/2022 10:07 AM EDT) Abscess/Wound Aspirate Culture No growth [facility] Gram Stain No Neutrophils No microorganisms seen. [facility] Excision Site STRUCTURE OF RIGHT FOOT / Unknown 05/04/2022 10:07 AM EDT 05/04/2022 1:58 PM EDT Comment:Right CC (calcaneal) non-union Narrative Resulting Agency Comment Spec In Lab Yenifer Ellis MD MICROBIOLOGY - GENER AL ORDERABLES [facility] [place] [address] documented in this encounter Visit Diagnoses Diagnosis Hx R triple arthrodesis s/p subtalar screw removal, revision CC arthrodesis 05/04/22 (Dr. Ellis)- Primary Other postprocedural status Nonunion after arthrodesis documented in this encounter Administered Medications Inactive Administered Medications - up to 3 most recent administrations Medication Order MAR Action Action Date Dose Rate Site acetaminophen (Tylenol) tablet 1,000 mg 1,000 mg, Oral, ONCE, 1 dose, On Sobe[place] 05/04/22 at 0815, Administer with SIP of H2O only. Maximum dose of acetaminophen is 4,000 mg from all sources in 24 hours., Day of Surgery (Day of Procedure), Routine Given 05/04/2022 8:00 AM EDT 1,000 mg scopolamine (Transderm Scop) 1 mg over 3 days patch 1 patch 1 patch, Transdermal, ONCE, 1 dose, On Sobeida 05/04/22 at 0845, Day of Surgery (Day of Procedure), Routine Patch Applied 05/04/2022 8:35 AM EDT 1 patch 01- Ear Behind (Left) scopolamine (Transderm-Scop) 1 mg patch Patch Removal Transdermal, ONCE, 1 dose, On Sun05/05/22 at 0830, Remove scopolamine 1 mg patch, Recovery (Recovery-Hospital Unit) scopolamine (Transderm-Scop) 1 mg patch Patch Verification Transdermal, 2 TIMES DAILY, 2 doses, First dose on Sobeida 05/04/22 at 2030, Last dose on Sun05/05/22 at 0900, Verify scopolamine 1 mg patch., Recovery (Recovery-Hospital Unit) documented in this encounter Active and Recently Administered Medications Times are shown in EDT. Scheduled Medication Order 05/02/2022 05/03/2022 05/04/2022 acetaminophen (Tylenol) tablet 1,000 mg (COMPLETED) 1,000 mg, Oral, ONCE, 1 dose, On Sobeida 05/04/22 at 0815, Administer with SIP of H2O only. Maximum dose of acetaminophen is 4,000 mg from all sources in 24 hours., Day of Surgery (Day of Procedure), Routine 0800 (Given - Provid er: Sonia Henderson RN) ceFAZolin (Ancef) 2 g vial attach to sodium chloride 0.9% 100 mL Mini-Bag Plus (COMPLETED) 2 g, Intravenous, ONCE, 1 dose, On Sobeida 05/04/22 at 0845, Administer over 30 Minutes, Day of Surgery (Day of Procedure), Indication for (Active or Suspected): Prophylaxis 09 (New Bag - Prov ider: Germain Adams CRNA) scopolamine (Transderm Scop) 1 mg over 3 days patch 1 patch (COMPLETED) 1 patch, Transdermal, ONCE, 1 dose, On Sobeida 05/04/22 at 0845, Day of Surgery (Day of Procedure), Routine 0835 (Patch Applied - Provider: Sonia Henderson RN) scopolamine (Transderm-Scop) 1 mg patch Patch Removal Transdermal, ONCE, 1 dose, On Sun05/05/22 at 0830, Remove scopolamine 1 mg patch, Recovery (Recovery-Hospital Unit) scopolamine (Transderm-Scop) 1 mg patch Patch Verification Transdermal, 2 TIMES DAILY, 2 doses, First dose on Sun05/04/22 at 2030, Last dose on Sun05/05/22 at 0900, Verify scopolamine 1 mg patch., Recovery (Recovery-Hospital Unit) Continuous Medication Order 05/02/2022 05/03/2022 05/04/2022 lactated ringers infusion (CANCELED) 1,000 mL, at 100 mL/hr, Intravenous, CONTINUOUS, Starting on Sobeida 05/04/22 at 0815, Until Sobeida 05/04/22 at 1306, Day of Surgery (Day of Procedure) 0859 (New Bag - Prov ider: Germain Adams CRNA)1142 (Stopped - Provider: Germain Adams CRNA) PRN Medication Order 05/02/2022 05/03/2022 05/04/2022 midazolam (pf) (Versed) (1 mg/mL) injection 1 mg (CANCELED) 1 mg, Intravenous, EVERY 5 MIN PRN, Starting on Sobeida 05/04/22 at 0745, Until Sobeida 05/04/22 at 1306, Sleep, or prior to injection of local anesthetic, Hold for delirium/agitation. (Maximum dose 5 mg)., Intra-Operative (Intra-Procedure), Routine 0840 (Given - Provid er: Sonia Henderson RN) documented in this encounter Care Teams Linotype Machinist Apprentice Relationship Specialty Start Date End Date Avery Caballero MD [address] [place] [address] PCP - General 04/15/14 documented as of this encounter
--- OUTSIDE RECORDS SUMMARY | 2024-04-08 18:08 | XMS_ITS | Encounter Summary ---
[place] [address] Care Team Providers Care Disaster Recovery Consultant Name Role Phone Avery Caballero MD Primary Care Provider [phone] Reason for Visit * Reason Comments Follow Up Surgery s/p bbr 07/23, brach ioplasty Encounter Details Date Type Department Care Team (Late st Contact Info) Description 08/03/2015 8:00 AM EST Office [place] [address] Varsha Lima APRN [facility] [place] [address] Surgery follow-up Social History Tobacco Use Types [...] this encounter Patient Instructions * Patient Instructions* Varsha Lima APRN - 08/03/2015 8:26 AM EST Begin scar massage at 4-6 weeks post op Continue compression garments until 6 weeks post-op Ok to return to work on Sunday08/09/15 with restrictions (no lifting > 5-10 lbs, no pushing, no pulling) documented in this encounter Progress Notes * Varsha Lima APRN - 08/03/2015 8:04 AM EST Plastic Surgery Post Op Note Hannah Ling returned to our office today for post surgical follow-up Date of surgery: 07/23/15 Procedure(s): Bilateral breast reduction (lira) and brachioplasty with liposuction Complications: None reported Pain: 2 HPI: She reports she is doing well in general, she has some discomfort, she has been taking tylenolfor pain control. She already feels substantial relief of her neck and back pain, she feels that her posture has improved. Physical Examination: General: Alert, comfortable, conversant, ambulating Breasts: Good symmetry and good perfusion of NAC's bilaterally. Incisions healing well. No evidence of infection, seroma or hematoma. Arms: Incisions healing well, no open areas. [place] removed today. No evidence of infection, seroma or hematoma She was provided with a copy of her path report indicating benign breast tissue. Plan: Instructed in care of incision lines, and activity restrictions of 6 weeks. Begin scar massage at 4-6 weeks post op- instructions provided Continue compression garments until 6 weeks post-op Ok to return to work on Sunday08/09/15 with restrictions (no lifting > 5-10 lbs, no pushing, no pulling) Prescriptions provided: None Supplies: a paeg surgical bra was provided Follow up: [address] Danial Wallace, Marta Newell, marquis acting as scribe for Varsha Lima. All work documented was performed by Varsha Lima. ???I performed the above scribed service and agree with the accuracy of the note?? VARSHA LIMA APRN documented in this encounter Plan of Treatment Not on file documented as of this encounter Visit Diagnoses Diagnosis Surgery follow-up Follow-up examination, following unspecified surgery documented in this encounter Care Teams Disaster Recovery Consultant Relationship Specialty Start Date End Date Avery Caballero MD [address] [place] [address] PCP - General 04/15/14 documented as of this encounter
--- OUTSIDE RECORDS SUMMARY | 2024-04-08 18:08 | XMS_ITS | Encounter Summary ---
[place] [address] Care Team Providers Care Hose Tender Name Role Phone Avery Caballero MD Primary Care Provider [phone] Reason for Visit * Reason Comments Follow Up Surgery s/p bbr 07/23, check incision under left breast Encounter Details Date Type Department Care Team (Late st Contact Info) Description 01/17/2016 3:00 PM EDT Office [place] [address] Hiram Nascimento MD [facility] [place] [address] S/P panniculectomy; S/P bilateral breast reduction Social History Tobacco Use Types Packs/Day Years [...] Sign Reading Time Taken Comments Blood Pressure - - Pulse - - Temperature - - Respiratory Rate - - Oxygen Saturation - - Inhaled Oxygen Concentration - - Weight 81.2 kg (179 lb) 01/17/2016 3:15 PM EDT Height 149.2 cm (4' 10.75) 01/17/2016 3:15 PM E DT Body Mass Index 36.46 01/17/2016 3:15 PM EDT documented in this encounter Patient Instructions * Patient Instructions* Darcy Neves RN - 01/17/2016 4:00 PM EDT You were given written and verbal preoperative instructions today. To prepare for your upcoming surgery, please review the Pre-Operative Instruction brochure that youwere given at today's appointment. Feel free to call our office [phone] if you have any questions or concerns. We monitor the phones from 8-5 Sunday through Sunday. documented in this encounter Progress Notes * Darcy Neves RN - 01/17/2016 4:01 PM EDT Pre-Op Teaching for Surgery Surgery: liposuction abdomen Written and verbal pre-operative instructions were given and reviewed with patient: Patient was advised to discontinue use of NSAIDS and aspirin products (unless otherwise advised by patient's PCP/De Alcoholizer for cardiac symptoms), fish oil, Vitamin E and herbal supplements for 14 days prior to surgery, to perform the pre-op scrub, and to coordinate a ride home following surgery. Smoking status and medications were further reviewed to rule out/address current use of Nicotine, Coumadin, Plavix, Estrogen or Tamoxifen. Photos were taken Patient was instructed to call the clinic at with any questions or concerns prior tosurgery. * Hiram Nascimento MD - 01/17/2016 3:34 PM EDT Plastic Surgery Post Op Note Hannah Ling returned to our office today for post surgical follow-up Date of surgery: 07/23/15 Procedure(s): Bilateral breast reduction and bilateral liposuction of arms Date of surgery: 06/09/14 Procedure(s): Abdominoplasty and thigh plasty Complications: None reported HPI:: She reports she is doing all right. She reports the wound on her left breast has finally healed. She reports that she has another area on her incision that has since opened up again. She is notable to wear a bra still. She is wondering id could have a revision to improve the contour of her abdomen. She has bulging on her left abdomen, and her mons area protrudes. Exam: Breasts scars are maturing positively, there is a stitch abscess along the left breast incision, suture removed today NAC Viable, and sensate bilaterally Breasts are symmetric in volume and NAC position Bilateral arm stab incisions are well healed, improved contour of the upper arms Abdominal contour is improved remains with An area of fullness on the left and along the mons pubis Impression: S/P bilateral breast reduction, and upper arm liposuction. Good post operative course. I advised her that she may have more surfacing sutures and to call the office for any concerns. We will plan liposuction to her left abdomen and mons area. Plan: Follow up for any concerns Apply bacitracin and bandage to small open area on left breast until healed Schedule for abdominoplasty revisions Dr Nascimento Duration: 2 hours Timeframe: elective Procedure: liposuction of abdomen and mons pubis CPT: 85049 Surgical site: abdomen Side: N/A Anesthesia: General Follow up: 7-10 Days PAT: No I, Hannah Roger, am acting as scribe for Dr Nascimento. All work documented was performed by Dr Nascimento. ???I performed the above scribed service and agree with the accuracy of the note?? HIRAM NASCIMENTO MD documented in this encounter Plan of Treatment Not on file documented as of this encounter Visit Diagnoses Diagnosis S/P panniculectomy S/P bilateral breast reduction Other postprocedural status documented in this encounter Care Teams Hose Tender Relationship Specialty Start Date End Date Avery Caballero MD [address] [place] [address] PCP - General 04/15/14 documented as of this encounter
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
--- OUTSIDE RECORDS SUMMARY | 2024-04-08 18:08 | XMS_ITS | Encounter Summary ---
Author Organization [facility] [place] [address] Care Team Providers Care Warp Clamper Name Role Phone Avery Caballero MD Primary Care Provider [phone] Encounter Details Date Type Department Care Team (Late st Contact Info) Description 09/20/2020 Ancillary Procedure [place] [address] Yenifer Ellis MD [facility] [place] [address] Social History Tobacco Use Types Packs/Day Years [...] FILM LIBRARY STORAGE ONLY DX FOOT Routine 09/20/2020 12:00 AM EST documented in this encounter Results * Film Library- Storage Only DX Foot (09/20/2020 12:00 AM EST) Narrative [facility] - 07/21/2021 3:12 PM EST This exam is auto-finalizing. It's purpose is for storage only. Yenifer Ellis MD IM FILM LIBRARY ORD ERABLES [place], [place] documented in this encounter Visit Diagnoses Not on filedocumented in this encounter Care Teams Warp Clamper Relationship Specialty Start Date End Date Avery Caballero MD [address] [place] [address] PCP - General 04/15/14 documented as of this encounter
--- OUTSIDE RECORDS SUMMARY | 2024-04-08 18:08 | XMS_ITS | Encounter Summary ---
[place] [address] Care Team Providers Care Machine Stone Polisher Name Role Phone Avery Caballero MD Primary Care Provider [phone] Reason for Visit * Reason Comments Follow Up Surgery bbr and brachioplast y * Consultation (Routine) - Closed Specialty Diagnoses / Procedures Referred By Contac t Referred To Contact Plastic Surgery Diagnoses BREAST PAIN DUE TO EXCESSING BREAST TISSUE. LIPOSUCTION, BREAST REDUCTION Procedures BREAST REDUCTION ALREADY SCHEDULED Avery Caballero MD [address] [place] [address] [facility] [address] [place] [address] Referral ID Status Reason Start Date Expiration Date V isits Requested Visits Authorized [id number] Closed Consult, Test & Treat Connection Center 07/14/2015 07/13/2016 1 1 Encounter Details Date Type Department Care Team (Latest Contact Info) Description 07/26/2015 11:00 AM EST Clinical [place] [address] Surgery follow-up Social History Tobacco Use Types [...] this encounter Patient Instructions * Patient Instructions* Nadya Haile RN - 07/26/2015 11:56 AM EST May shower: Remove bra and arm sleeves Wash with soap and water Pat dry Apply ointment and a dressing to arm incisions. Replace your sleeves Reapply dry dressing for comfort if needed (ie nursing pads) and your support bra We have removed your drain(s) and applied a dressing. You may remove the dressing in 24 hours and shower. After showering, you may cover the drain site(s) with a bandaid. The drain site is typically closed in approximately three days. Please call the clinic at [phone] with any questions or concerns. documented in this encounter Progress Notes * Nadya Haile RN - 07/26/2015 12:03 PM EST Patient was seen by this creative writer for removal of breast drains s/p a lira pattern BBR And bilateral brachioplasty on 07/23/2015. Two breast drains were removed without complication, drain sites cleansed with a wound cleanser anddry dressings reapplied - with instructions to leave this dressing in place for 24 hours. Both breasts are soft and equal in size. There is not sign of seroma or hematoma. Swelling is moderate on the right and [...] of infection. Drainage is scant. Swelling is moderate to max at both arms despite arm sleeves Dressings were changed and new sleeves provided Arm drains were left in place. Patient denies nausea or vomiting. Hannah Ling was advised to drink extra water for the next few days to help reduce anesthesia effects and replace fluid loss. Increasing protein in the diet through high protein foods or drinks, such as Ensure, Resource or Boost was also recommended for the next 2-3 days, as long as the nutritional recommendations are not contraindicated. Client reports for pain. Instructions on drain site and [...] surgery documented in this encounter Care Teams Machine Stone Polisher Relationship Specialty Start Date End Date Avery Caballero MD [address] [place] [address] PCP - General 04/15/14 documented as of this encounter
--- OUTSIDE RECORDS SUMMARY | 2024-04-08 18:08 | XMS_ITS | Encounter Summary ---
Author Organization [facility] [place] [address] Care Team Providers Care Service Desk Specialist Name Role Phone Avery Caballero MD Primary Care Provider [phone] Encounter Details Date Type Department Care Team (Late st Contact Info) Description 01/24/2021 12:05 AM EDT Ancillary Procedure [place] [address] Yenifer Ellis MD [facility] DR [place] [address] Social History Tobacco Use Types Packs/Day Years [...] FILM LIBRARY STORAGE ONLY DX ANKLE Routine 01/24/2021 12:05 AM EDT documented in this encounter Results * Film Library- Storage Only DX Ankle (01/24/2021 12:05 AM EDT) Narrative [facility] - 07/21/2021 3:21 PM EST This exam is auto-finalizing. It's purpose is for storage only. Yenifer Ellis MD IM FILM LIBRARY ORD ERABLES [place], [place] documented in this encounter Visit Diagnoses Not on filedocumented in this encounter Care Teams Service Desk Specialist Relationship Specialty Start Date End Date Avery Caballero MD [address] [place] [address] PCP - General 04/15/14 documented as of this encounter
--- OUTSIDE RECORDS SUMMARY | 2024-04-08 18:08 | XMS_ITS | Encounter Summary ---
[place] [address] Care Team Providers Care Fish Cutter Name Role Phone Avery Caballero MD Primary Care Provider [phone] Encounter Details Date Type Department Care Team (Late st Contact Info) Description 05/04/2022 8:50 AM EDT - 05/04/2022 11:40 AM EDT Surgery Outpatient [place] [id number] Yenifer Ellis MD [facility] DR ORTHOPAED[place] [address] ARTHRODESIS, MIDTARSAL OR TARSOMETATARSAL W/O OSTEOTOMY (WRVU 10.7) Social History Tobacco Use Types Packs/Day Years [...] Sign Reading Time Taken Comments Blood Pressure 110/79 05/04/2022 8:45 AM EDT Pulse 74 05/04/2022 9:00 AM EDT Temperature 36.5 ??C (97.7 ??F) 05/04/2022 7:51 AM ED T Respiratory Rate 20 05/04/2022 8:45 AM EDT Oxygen Saturation 100% 05/04/2022 9:00 AM EDT Inhaled Oxygen Concentration - - Weight [...] closest emergency room or call the hospital pulper operator at [phone] and ask for physician reproduction artist covering for your physician. Questions or problems after 5pm or on a weekend: Call the [facility] pulper operator at and ask for the physician reproduction artist covering for your doctor. At 0800 am [...] it no later than 0830 am on Sunday morning. Lower Extremity Nerve Block Nerve blocks affect [...] after hours and ask for the anesthesiologist reproduction artist. There will still be some active ingredients [...] as much as possible. Call your doctor ([phone]) if you develop: Fever greater than 100.5 Severe nausea or vomiting Increasing pain that is not controlled by pain medications Increasing redness, swelling, or drainage from incisions Change in sensation FOLLOW-UP APPOINTMENTS: 1. You will have follow-up appointments at [facility] as indicated below in Future Appointment and Orders. 2. You will need to have x-rays prior to your follow-up appointment listed below. Please come to Radiology, desk 3T, 1 hour BEFORE that appointment for these x-rays. Future Appointments Date Time Provider Department Center 05/16/2022 12:00 PM [facility] DX ROOM 2 MH Xray [facility] Rad 05/16/2022 1:00 PM Jacinda Benoit APRN [facility] ORTH 3C [facility] If you have questions or concerns: Sunday [...] (SUPER B COMPLEX ORAL) Take by mouth. Wjlimugidhkws-Vx-Ylmu-M inerals Tab Take by mouth. Women's one [...] documented in this encounter H&P Notes * Yenifer Ellis MD - 05/04/2022 8:34 AM EDT ORTHOPEDIC [...] BX performed by Bassem Norman MD at [facility] ENDOSCOPY ??? PRO EXCISE EXCESS SKIN TISSUE, ABDOMEN, ADD-ON 06/19/2014 ABDOMINOPLASTY EXC,W/ UMBILICAL TRANSPOSITION, FASCIAL PLICATION performed by Hiram Barrow MD at [facility] MAIN OR ??? PRO EXCISE EXCESS SKIN TISSUE, ARM Bilateral 07/23/2015 EXCISION, SKIN AND SUB-Q TISSUE, ARM-HIRAL performed by Hiram Barrow MD at [facility] MAIN OR ??? PRO EXCISE EXCESS SKIN TISSUE, THIGH 06/19/2014 EXCISION EXCESSIVE SKIN AND TISSUE-THIGH performed by Hiram Barrow MD at [facility] MAIN OR ??? PRO REDUCTION OF LARGE BREAST Bilateral 07/23/2015 REDUCTION MAMMOPLASTY, HIRAL performed by Hiram Brarow MD at [facility] MAIN OR ??? PRO SUCT BERTO LIPECTOMY, LOW EXTREM 06/19/2014 SUCTION ASSISTED LIPECTOMY, LOWER EXTREMITY-HIRAL performed by Hiram Barrow MD at [facility] MAIN OR ??? PRO SUCT BERTO LIPECTOMY, TRUNK Bilateral 07/23/2015 SUCTION ASSISTED LIPECTOMY,TRUNK performed by Hiram Barrow MD at [facility] MAIN OR ??? PRO UNLISTED CRANIO/MAXILLOFACIAL SURG ??? PRO UNLISTED PROCEDURE PHARYNX ADENOIDS/TONSILS ??? PRO UNLISTED PROCEDURE, MUSCULOSKELETAL SYSTEM, GENERAL ??? PRO UNLISTED PX FEMALE GEN SYS ??? PRO UPPER GI ENDOSCOPY, BIOPSY N/A 10/06/2014 EGD WITH BIOPSY performed by Bassem Norman MD at [facility] ENDOSCOPY Home Medications: Medications Prior to Admission [...] B COMPLEX ORAL) Take by mouth. ??? Bnaskwlvlejvi-La-Ziaj-Minerals Tab Take by mouth. Women's one a [...] to proceed to OR with Dr. Ellis for foot hardware removal and CC revision, fat pad reaarangement. Patient Pharmacy for outpatient medications: Tramadol to [facility] in [facility]. ASA 81 mg daily for DVT proph documented in this encounter Miscellaneous Notes * Brief Op Note - Philip Pickard MD - 05/04/2022 12:06 PM EDT Brief Operative Note Patient Name: Hannah Ling : [id number] MR#: [id number] Case Date: 05/04/2022 Surgeon: Surgeon(s) and Role: [...] Ellis MD - 05/04/2022 9:20 AM EDT [facility] Operative Note Patient Name: Hannah Ling : [id number] MR#: [id number] Case Date: 05/04/2022 Surgeon: Surgeon(s) and Role: * Yenifer Ellis MD - Primary * Philip Pickard MD - Resident Jonah Thompson, MS3 Preoperative diagnosis: 1. Right calcaneocuboid nonunion [...] to remove the screws with a cannulated tractor driver teamster. After identifying that this was a too large cannulated tractor driver teamster, we adjusted appropriately and were able to [...] Implant Name Type Inv. Item Serial No. Post Office Clerk Lot No. LRB No. Used Action GRAFT BONE FILLER 1CC DBM INJECTABLE PUTTY ALLOMATRIX ([id number]) (AUTOREQ) - [id number] IMPLANTS GRAFT BONE FILLER 1CC DBM INJECTABLE PUTTY ALLOMATRIX ([id number]) (AutoReq) [id number] [employer] Right 1 Implanted GRAFT BONE FILLER 1CC DBM INJECTABLE PUTTY ALLOMATRIX ([id number]) (AUTOREQ) - [id number] IMPLANTS GRAFT BONE FILLER 1CC DBM INJECTABLE PUTTY ALLOMATRIX (6785266) (AutoReq) [id number] [employer] Right 1 Implanted GRAFT BONE FILLER INJECTABLE 1.5CC DBM AUGMENT ([id number]) (AUTOREQ) - [id number] IMPLANTS GRAFT BONEFILLER INJECTABLE 1.5CC DBM AUGMENT ([id number]) (AutoReq) [facility] [id number] Right 1 Implanted GRAFT BONE FILLER [id number] DBM FREEZE DRIED CHIPS ([id number]) (AutoReq) - [id number] IMPLANTS GRAFT BONE FILLER [id number] DBM FREEZE DRIED CHIPS ([id number]) (AutoReq) [id number] [facility] Right 1 Implanted SUTURE ANCHOR 5.5X15MM 2-0 FIBERWIRE SDRILL TI CORKSCREW ([id number]) - [id number] IMPLANTS SUTURE ANCHOR 5.5X15MM 2-0 FIBERWIRE SDRILL TI CORKSCREW ([id number]) [employer] [place] [id number] Right 1 Implanted PLATE FLAT 6 HOLE COMP LCK TI ORTHOLOC 3DI ([id number]) (AutoReq) - [id number] IMPLANTS PLATE FLAT 6 HOLE COMP LCK TI ORTHOLOC 3DI ([id number]) (AutoReq) [facility] Right 1 Implanted SCREW 3.5X20MM MICHAEL LCK FT PURPLE TI ORTHOLOC 3DI ([id number]) (AutoReq) - [id number] IMPLANTS SCREW 3.5X20MM MICHAEL LCK FT PURPLE TI ORTHOLOC 3DI ([id number]) (AutoReq) [facility] Right 1 Implanted SCREW 3.5X24MM MICHAEL LCK FT PURPLE TI ORTHOLOC 3DI (5816775) (AutoReq) - [id number] IMPLANTS SCREW 3.5X24MM MICHAEL LCK FT PURPLE TI ORTHOLOC 3DI ([id number]) (AutoReq) [facility] Right 1 Implanted SCREW 3.5X28MM MICHAEL LCK FT PURPLE TI ORTHOLOC 3DI ([id number]) (AutoReq) - [id number] IMPLANTS SCREW 3.5X28MM MICHAEL LCK FT PURPLE TI ORTHOLOC 3DI ([id number]) (AutoReq) [facility] Right 1 Implanted SCREW 3.5X30MM MICHAEL LCK FT PURPLE TI ORTHOLOC 3DI ([id number]) (AutoReq) - [id number] IMPLANTS SCREW 3.5X30MM MICHAEL LCK FT PURPLE TI ORTHOLOC 3DI ([id number]) (AutoReq) [facility] Right 1 Implanted SCREW 3.5X36MM MICHAEL NLCK FT BRONZE TI ORTHOLOC 3DI ([id number]) (AutoReq) - [id number] IMPLANTS SCREW 3.5X36MM MICHAEL NLCK FT BRONZE TI ORTHOLOC 3DI ([id number]) (AutoReq) [facility] Right 1 Implanted Surgical Infection Prevention Bundle [...] Adj Tiss Transfer Head, Fac, Hand 10.1-30 (45401) 05/04/2022 9:00 AM EDT Nonunion after arthrodesis Removal Deep Implant ([id number]) 05/04/2022 9:00 AM EDT Nonunion after arthrodesis Fusion Foot Bones, Midtarsal, Multi (45375) 05/04/2022 9:00 AM EDT Nonunion after arthrodesis [...] EDT) Anaerobic Culture No anaerobic organisms isolated [facility] Excision Site STRUCTURE OF RIGHT FOOT / Unknown 05/04/2022 10:07 AM EDT 05/04/2022 1:58 PM EDT Comment:Right CC (calcaneal) non-union Narrative Resulting Agency Comment Spec In Lab Yenifer Ellis MD MICROBIOLOGY - GENER AL ORDERABLES [facility] [place] [place] [address] * Abscess/Wound Aspirate Culture (05/04/2022 10:07 AM EDT) Abscess/Wound Aspirate Culture No growth [facility] Gram Stain No Neutrophils No microorganisms seen. [facility] Excision Site STRUCTURE OF RIGHT FOOT / Unknown 05/04/2022 10:07 AM EDT 05/04/2022 1:58 PM EDT Comment:Right CC (calcaneal) non-union Narrative Resulting Agency Comment Spec In Lab Yenifer Ellis MD MICROBIOLOGY - GENER AL ORDERABLES [facility] [place] [address] documented in this encounter Visit Diagnoses Diagnosis Hx R triple arthrodesis s/p subtalar screw removal, revision CC arthrodesis 05/04/22 (Dr. 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 (Maximum dose 5 mg)., Intra-Operative (Intra-Procedure), Routine Given 05/04/2022 8:40 AM EDT 2 mg scopolamine (Transderm Scop) 1 mg over 3 days patch 1 patch 1 patch, Transdermal, ONCE, 1 dose, On Sun05/04/22 at 0845, Day of Surgery (Day of [...] Procedure), Indication for (Active or Suspected): Prophylaxis 0909 (New Bag - Prov ider: Germain Adams CRNA) scopolamine (Transderm Scop) 1 mg over 3 days patch 1 patch (COMPLETED) 1 patch, Transdermal, ONCE, 1 dose, On Sun05/04/22 at 0845, Day of Surgery (Day of [...] RN) documented in this encounter Care Teams Fish Cutter Relationship Specialty Start Date End Date Avery Caballero MD [address] [place] [address] PCP - General 04/15/14 documented as of this encounter
--- OUTSIDE RECORDS SUMMARY | 2024-04-08 18:08 | XMS_ITS | Encounter Summary ---
[place] [address] Care Team Providers Care Public Welfare Director Name Role Phone Avery Caballero MD Primary Care Provider [phone] Reason for Visit * Reason Comments Follow Up Surgery breast incision chec k Encounter Details Date Type Department Care Team (Latest Contact Info) Description 08/19/2015 1:00 PM EST Clinical [place] [id number] Surgery follow-up Social History Tobacco Use Types [...] * Patient Instructions* Nadya Haile RN - 08/19/2015 1:32 PM EST Wash with soap and water. Pat dry Stop Bacitracin Apply silver foam to open areas. Change every other day. Take your antibiotic as prescribed. Report increased redness Wear compression sleeves when out of bed with activity Wear support bra day and night for 6 weeks from surgery Follow up with Dr. Barrow documented in this encounter Progress Notes * Nadya Haile RN - 08/19/2015 2:02 PM EST Client seen by this investment underwriter and Dr. Hollins following a brachioplasty and BBR on 07/23/2015. Arms: Client is applying Bacitracin and Telfa pads to both arms under her compression sleeves. There is also sporadic areas where Steri strips are in place. The entire incision is wet and shows signs of dermatitis due to the steri strips, bacitracin and Telfa. The dressings, spitting sutures and ointment were removed . The skin was cleansed . Mepilex AG was applied to a 1 cm open area at the right axilla and a 3 cm wound at the left upper arm. The remaining suture lines were well approximated and without sign of infection. Client was instructed keep the sleeve off at night and to wear the sleeve with activity during the day. Breast: Client was wearing a compression bra that appears to be too tight. She was instructed to wear the xl marv. Right Breast: The NAC was red and warm to touch. There is no drainage. There is a 2cm opening at the T juncture. The wound was debrided and suture removed Silver foam was applied Left breast: There is a 3cm wound at the t Juncture. The wound base is 100% granulation. Silver foam was applied. There is a 12cm area of erythema at the lateral aspect of the vertical incision. There is also the presence of a seroma Dr. Hollins prescribed Keflex and instructed the patient to call if the redness does not improve after 24-48 hours on Keflex. Supplies: 2 6x6 Mepilex AG foams for home use Plan: Wash with soap and water. Pat dry Stop Bacitracin Apply silver foam to open areas. Change every other day. Take your antibiotic as prescribed. Report increased redness Wear compression sleeves when out of bed with activity Wear support bra day and night for 6 weeks from surgery Follow up with Dr. Barrow documented in this encounter Plan of Treatment Not on file documented as of this encounter Visit Diagnoses Diagnosis Surgery follow-up Follow-up examination, following unspecified surgery documented in this encounter Care Teams Public Welfare Director Relationship Specialty Start Date End Date Avery Caballero MD [address] [place] [address] PCP - General 04/15/14 documented as of this encounter
--- OUTSIDE RECORDS SUMMARY | 2024-04-08 18:08 | XMS_ITS | Encounter Summary ---
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 Name Role Phone Avery Caballero MD Primary Care Provider [phone] Reason for Visit * Auth/Cert Specialty Diagnoses / Procedures Referred By Kiarra banuelos Referred To Contact Diagnoses Hypertrophy of breast Unspecified hypertrophic and atrophic condition of skin macromastia Procedures PRO REDUCTION OF LARGE BREAST PRO EXCISE EXCESS SKIN TISSUE, ARM PRO SUCT BERTO LIPECTOMY, TRUNK REDUCTION MAMMOPLASTY, HIRAL Referral ID Status Reason Start Date Expiration Date Visits Re quested Visits Authorized [id number] 1 1 Encounter Details Date Type Department Care Team (Late st Contact Info) Description 07/23/2015 12:59 PM EST - 07/23/2015 4:58 PM EST Surgery [place] [address] Hiram Barrow MD [facility] [place] [address] REDUCTION MAMMOPLASTY, HIRAL (WRVU 16.03) Social History Tobacco Use Types Packs/Day Years [...] Sign Reading Time Taken Comments Blood Pressure 129/70 07/23/2015 10:59 AM EST Pulse 70 07/23/2015 10:59 AM EST Temperature 36.6 ??C (97.9 ??F) 07/23/2015 10:[address] Respiratory Rate 17 07/23/2015 10:59 AM EST Oxygen Saturation 98% 07/23/2015 10:59 AM EST Inhaled Oxygen Concentration - - Weight 81.2 kg (179 lb) 07/23/2015 10:59 AM EST Height 149.9 cm (4' 11.02) 07/23/2015 10:59 AM EST Body Mass Index 36.13 07/23/2015 10:59 AM EST documented in this encounter Discharge Instructions * Discharge Instructions* Leon Larry, RN - 07/23/2015 6:27 PM EST Images from the original note were not included. POST ANESTHESIA INSTRUCTIONS Go home, rest, use caution on stairs. Change positions slowly. Do not smoke if you are alone. Diet light to regular as tolerated today. If nausea occurs start with clear liquids and progress slowly. No driving, operating machinery, alcoholic beverages and no important decisions for 24 hours. Monitor IV site for signs and symptoms of infection: increasing redness, swelling, foul drainage, if occurs contact M.D. Patients who have had endotrachial tubes (this tube, used by anesthesia department, is passed down your throat after you are asleep, to ensure safe air passage during your operation). A sore throat is normal due to the tube. Cold liquids or soothing lozenges will help ease the discomfort. The generalized muscle aches are due to the medication given to you just before the tube is inserted. As the medication wears off, you may develop muscle soreness, which usually goes away in 12-24 hours. INTERVENTIONAL RADIOLOGY DRAIN CARE INSTRUCTIONS Drains help to keep fluid from collecting by removing the extra blood and fluid from under the skinor from an abscess within the body. A drain is temporary. It stays in place until the drainage has slowed down or stopped. Your Provider will decide when each drain should be removed. This is usuallyafter each drain has 30cc or less in 24 hours for 2-3 days in a row. You will then be scheduled for what is called a Sinogram to check and see if the fluid collection has gotten smaller. How do I care for the drains at home? Pin your drain/s to your clothing by using a safety pin through the plastic loop on the top of the bulb. If the drain is not attached to your clothing, it may pull out from under your skin. Also, a drain usually feels more comfortable when it???s attached. To care for the drain at home, you will have to empty the drain, ???strip?? the drain tubing, and change the dressing if applicable. * See the following pages for instructions on how to do this. What problems may I have with my drain? The bulb is not compressed- The bulb may not be squeezed tightly enough, the plug may not be closed securely, or the tube has slipped out a bit and is leaking. Follow the instructions on how to empty the drain. If the bulb remains expanded, then notify your doctor or nurse during business hours. ??? No drainage or sudden decrease in amount of drainage- This may be due to a plug in the drain. Please notify your doctor or nurse during business hours. ??? The tube accidentally falls out- If this happens, place a dry gauze dressing over the drain site and notify your doctor or nurse during business hours. ??? Increased redness, swelling, or heat around the tube insertion site- This may be a sign of infection. Take your temperature: if it is higher than 101F or 38.8C, call your doctor or nurse immediately. Otherwise, notify your doctor or nurse during business hours and keep the dressing clean and dry. How to Empty Your Drain Note: Wash your hands thoroughly before emptying your drain(s). Unpin the drain from your clothing. 1. Turn the white stopcock so it is not parallel (in line) with the tubing. 2. Unscrew the tubing with the bulb attached from stopcock. Make sure you keep everything clean. 3. Attach the syringe with sterile saline to the stopcock. 4. Inject saline per MD order, usually 3-5 cc's. 5. Re-attach the tubing with the bulb to the stopcock. 6. Invert the bulb and pull open the plug. 7. Have the plastic measuring cup from the hospital ready to collect and measure the drainage. Please measure the output at the same time every 24 hours and record the amount. 1. 8. Turn the drain upside down and squeeze the contents of the bulb into the measuring cup. Be sure to empty the bulb as completely as possible. Flush the contents in the toilet. 9. Use the drain output log chart to record the amount of drainage twice a day or any time the bulbis full. Record the total for 24 hours for each drain you have. 10. If you have more than one drain, remember to record the drainage from each drain separately. 11. To prevent infection, do not let the stopper or top of the bottle touch the measuring cup or any other surface. 2. Use one hand to squeeze all of the air from the drain. With the drain still squeezed, use your other hand to replace the top. This creates the suction necessary to remove the fluids from your body. 3. Pin the drain back on your clothing to avoid pulling it out accidently. 4. Wash your hands again. Remember to wash your hands before and after the procedure to reduce the risk of infection. Flushing the Drain: Your doctor may want the drain to be flushed once or twice daily to keep the fluid from plugging the drain. Flush the drain with 3-5 cc daily with the syringes supplied to you. Do Not flush the drain. When to call the Interventional Radiology Department: Please call with any questions or concerns. If it is during regular office hours, please call [phone]. If it is after regular office hours, or on weekends or holidays, please call [phone] and ask to speak to the [employer] parts counter salesperson for Interventional Radiology. You have received medication during your procedure to help lesson anxiety and keep you comfortable.These medications affect judgement and reaction time. We recommend that you do not drive, operate equipment, sign any important documents, or smoke unattended for 24 hours following your procedure. Because of the sedation, be careful on stairs, as you may be unsteady on your feet. You may resume your regular diet as tolerated. IV site -- slight redness, or tenderness is normal, you can use a warm compress. If tenderness and redness increases or foul drainage occurs, please contact your M. D. 09/15/11 [facility] Drainage Record NAME: Date of Surgery: Date: Time: If more than one drain, which one: Drainage Amount (per drain) Total Amount (per drain; in 24 hours) DRAIN CARE INSTRUCTIONS Drains help to keep fluid from collecting by removing the extra blood and fluid from under the skinor from an abscess within the body. A drain is temporary. It stays in place until the drainage has slowed down or stopped. Your Provider will decide when each drain should be removed. This is usuallyafter each drain has 30cc or less in 24 hours for 2-3 days in a row. You will then be scheduled for what is called a Sinogram to check and see if the fluid collection has gotten smaller. How do I care for the drains at home? Pin your drain/s to your clothing by using a safety pin through the plastic loop on the top of the bulb. If the drain is not attached to your clothing, it may pull out from under your skin. Also, a drain usually feels more comfortable when it???s attached. To care for the drain at home, you will have to empty the drain, ???strip?? the drain tubing, and change the dressing if applicable. * See the following pages for instructions on how to do this. What problems may I have with my drain? The bulb is not compressed- The bulb may not be squeezed tightly enough, the plug may not be closed securely, or the tube has slipped out a bit and is leaking. Follow the instructions on how to empty the drain. If the bulb remains expanded, then notify your doctor or nurse during business hours. ??? No drainage or sudden decrease in amount of drainage- This may be due to a plug in the drain. Please notify your doctor or nurse during business hours. ??? The tube accidentally falls out- If this happens, place a dry gauze dressing over the drain site and notify your doctor or nurse during business hours. ??? Increased redness, swelling, or heat around the tube insertion site- This may be a sign of infection. Take your temperature: if it is higher than 101F or 38.8C, call your doctor or nurse immediately. Otherwise, notify your doctor or nurse during business hours and keep the dressing clean and dry. How to Empty Your Drain Note: Wash your hands thoroughly before emptying your drain(s). Unpin the drain from your clothing. 1. Turn the white stopcock so it is not parallel (in line) with the tubing. 2. Unscrew the tubing with the bulb attached from stopcock. Make sure you keep everything clean. 3. Attach the syringe with sterile saline to the stopcock. 4. Inject saline per MD order, usually 3-5 cc's. 5. Re-attach the tubing with the bulb to the stopcock. 6. Invert the bulb and pull open the plug. 7. Have the plastic measuring cup from the hospital ready to collect and measure the drainage. Please measure the output at the same time every 24 hours and record the amount. 5. 8. Turn the drain upside down and squeeze the contents of the bulb into the measuring cup. Be sure to empty the bulb as completely as possible. Flush the contents in the toilet. 9. Use the drain output log chart to record the amount of drainage twice a day or any time the bulbis full. Record the total for 24 hours for each drain you have. 10. If you have more than one drain, remember to record the drainage from each drain separately. 11. To prevent infection, do not let the stopper or top of the bottle touch the measuring cup or any other surface. 6. Use one hand to squeeze all of the air from the drain. With the drain still squeezed, use your other hand to replace the top. This creates the suction necessary to remove the fluids from your body. 7. Pin the drain back on your clothing to avoid pulling it out accidently. 8. Wash your hands again. Remember to wash your hands before and after the procedure to reduce the risk of infection. Flushing the Drain: Your doctor may want the drain to be flushed once or twice daily to keep the fluid from plugging the drain. Flush the drain with 3-5 cc daily with the syringes supplied to you. Do Not flush the drain. When to call the Interventional Radiology Department: Please call with any questions or concerns. If it is during regular office hours, please call [phone]. If it is after regular office hours, or on weekends or holidays, please call [phone] and ask to speak to the [employer] parts counter salesperson for Interventional Radiology. You have received medication during your procedure to help lesson anxiety and keep you comfortable.These medications affect judgement and reaction time. We recommend that you do not drive, operate equipment, sign any important documents, or smoke unattended for 24 hours following your procedure. Because of the sedation, be careful on stairs, as you may be unsteady on your feet. You may resume your regular diet as tolerated. IV site -- slight redness, or tenderness is normal, you can use a warm compress. If tenderness and redness increases or foul drainage occurs, please contact your M. D. 09/15/11 [facility] Drainage Record NAME: Date of Surgery: Date: Time: If more than one drain, which one: Drainage Amount (per drain) Total Amount (per drain; in 24 hours) * Patient Instructions* Marisa Scruggs MD - 07/23/2015 4:55 PM EST What to Expect.... ?? The healing process after breast reduction surgery varies with each person. You should expect tofeel tired for the first 2 - 3 weeks due to anesthesia and the healing process. Rest often during the day and get a good night sleep. Pain (short term and half-way) ?? With any surgery there is some discomfort or pain. We will prescribe pain medication. Take as prescribed and only as needed. OK to take prescription medication or Tylenol. Do not take both. OK to add Ibuprofen 48 hours after surgery. ?? We recommend taking an puai-gzo-Mxoxklp stool softener, such as Colace (docusate) or a gentle laxative while taking your narcotic pain reliever. This will help to maintain bowel regularity and prevent straining. Drink plenty of water. ?? You will may have nerve pain after your surgery because the nerve endings have been disturbed. Nerve pain may feel like a burning sensation, itching or a shooting, electric shock pain. This is normal and will get better as you heal. Swelling ?? Moderate bruising and swelling is normal in the first few weeks after surgery. The swelling willgradually go down, but it may remain for 3 to 6 months. ?? To help with swelling wear your compression bra. ?? Do not use heat or ice on your surgical site. Drains ?? Record drain output and bring to your first clinic appointment with you. Based on the nursing assessment, your drain will likely be removed at this appointment. ?? The nurses will show you how to care for the drains Showering ?? You may shower in 2 days. ?? Do not take a bath or use a hot tub until incisions are completely healed. ?? If you have drains in place, tie a shoe lace or string around your neck and attach the drains tothis to prevent accidental removal. ?? Have someone nearby during your first shower. Incisions/Dressings ?? You may have some red, pink, yellow/clear drainage from your incisions for the first 1-2 weeks. Change gauze as needed. Continue to use dressings until there is no more drainage. ?? Leave arm sleeves and bra on at all times other than showering. You may shower in 2 days. DO???S AND DON???TS FOR THE NEXT 6 WEEKS ?? Do not drive a motor vehicle for 1-2 weeks or until you can handle the steering wheel without discomfort. Do not drive while taking your narcotic. You will be able to wear a seat belt if you placea small pillow over your chest area. ?? Do not engage in sexual activity for at least 1 week. ?? Do not smoke or be around anyone who smokes for 2 weeks after your surgery. Smoking delays healing and can lead to infection. ?? Do not lift more than 5 pounds or bend at the waist to lift for 6 weeks. ?? Do not participate in strenuous activities such as running or aerobics for 6 weeks. ?? Do resume walking at a gentle pace. ?? Protect your incisions from the sun for 6 months. ?? You may return to work in 1-6 weeks (average time is 3 weeks) depending upon your work activity. GETTING A GOOD NIGHT SLEEP ?? Your surgeon may ask you to sleep on your back for a few weeks. Here are some suggestions for a good nights sleep. ?? Try sleeping in a recliner. ?? Have extra pillows in your bed for support: two along your side and one under your knees to relieve lower back pressure. Buy a large body pillow or a pillow with arm rests for sitting up in bed. GETTING OUT OF BED ?? You will be asked to limit the use of your arms for a few weeks after surgery. This can be a problem when trying to get out of bed. The following suggestions help you get out of bed with minimal use of your arms. ?? When in bed, pull your knees up towards your chest and tip to the side, gently rolling out of bed. Take care not to roll onto your breasts. ?? Create a nest of pillows to prop you in a semi-upright position helps give you that extra boost to get out of bed. ?? Have someone put gentle pressure to your lower shoulder blades as you sit up. This gives you theextra power you need to get to your feet. Complications: Call your doctor with the following signs of infection: ?? A temperature over 100.4 F or 38 C ?? Redness at the incision line that spreads away from the incision after the first 48 nora thick yellow, foul smelling drainage ?? Increasing pain that is not relieved by your pain medicine ?? One breast becomes much larger and more firm than the other Contact your Doctor ?? To make an appointment or for questions about scheduling, please contact our administrative offices at [phone] ?? For clinical questions, please call our nurses at [phone] ?? Both offices are open Sunday thru Sunday 8a - 5p. With emergencies after hours, call the hospital gang ripsaw operator at [phone] and ask for the Plastic Surgery Resident parts counter salesperson. documented in this encounter Medications at Time [...] (SUPER B COMPLEX ORAL) Take by mouth. Ntxjzlkmcsdci-Ka-Pqh n-Minerals Tab Take by mouth. Women's one a day gummy polyethylene glycol (MIRALAX) 17 gram Powder in Packet Take 17 g by mouth nightly. 04/28/2019 oxyCODONE (ROXICODONE) 5 mg Tablet Take 1 tablet by mouth every 4 hours as needed for Pain. No driving, no alcohol 20 tablet 0 07/23/2015 07/26/2015 ursodiol (ACTIGALL) 300 mg CapsuleIndications:c holelithiasis prevention Take 300 mg by mouth 2 times daily. Indications: Cholelithiasis Prevention 04/28/2019 omeprazole (PRILOSEC) 40 mg capsule Take 40 mg by mouth daily. 04/28/2019 fluticasone-salmeter ol (ADVAIR DISKUS) 250-50 mcg/dose diskus inhaler Inhale 1 puff into the lungs every 12 hours. 09/23/2021 documented as of this encounter Progress Notes * Leon Larry RN - 07/23/2015 8:36 PM EST @2014 pt up ambulatory to BR/voided. Back to bed. Denies overt pain. IV to HC. Plan short rest thendischarge to home. All drain output is serosanguinous. Volumes as noted on drain log in pts possession @ discharge. documented in this encounter H&P Notes * Marisa Scruggs MD - 07/23/2015 11:46 AM EST 24 hour interval history and physical exam: Hannah Ling's condition unchanged since H&P originally performed Temp: [36.6 ??C (97.9 ??F)] Heart Rate: [70] Resp: [17] BP: (129)/(70) On RA Nonlabored Symmetric chest movement Bilateral breasts and arms marked Back marked. Proceed to OR for BBR and brachioplasty and back liposuction. Consent reviewed and confirmed Proceed. documented in this encounter Miscellaneous Notes * Op Note - Marisa Scruggs MD - 07/23/2015 4:57 PM EST Operative Note Patient Name: Hannah Ling : [id number] MR#: [id number] Case Date: 07/23/2015 Surgeon: Surgeon(s) and Role: * Hiram Barrow MD - Primary * Marisa Scruggs MD - Resident-Surgeon Chief Preoperative diagnosis: macromastia Postoperative diagnosis: macromastia Procedure(s): REDUCTION MAMMOPLASTY, HIRAL EXCISION, SKIN AND SUB-Q TISSUE, ARM-HIRAL SUCTION ASSISTED LIPECTOMY,TRUNK-- Liposuction volume 300 ml IV Anesthesia: General Complications: None Fluids: 2L Estimated Blood Loss: 400 mL Drains: 4, 15F ANJEL drains Disposition: awakened from anesthesia, extubated and taken to the recovery room in a stable condition, having suffered no apparent untoward event. Condition: doing well without problems Indications for Procedure: A 50-year-old female with past medical history of weight loss who presented with excess skin and subcutaneous tissue of bilateral arms and symptomatic macromastia. After discussing the risks and benefits of operative intervention with the patient, she consented to proceed with bilateral breast reduction and brachioplasty. Procedure: The patient was identified in the Preoperative Holding Area and seen by the attending anesthesiologist and the attending surgeon. Again, the procedure was reviewed with the patient, and she consented to proceed. She was brought back to the Operating Room and placed supine on the operating room table, and a dose of perioperative IV antibiotics was administered. The operative site was then prepped and draped in the normal sterile fashion. A time-out was had, and all team members agreed to proceed according to [facility] protocol. The procedure was begun by getting and confirming measurements for bilateral superomedial pedicle Dee pattern bilateral breast reduction. The superomedial pedicle was developed in the subcutaneous plane down to the chest wall. The semicircular area of breast tissue to be excised was subsequently excised using Bovie cautery, paying attention to maintaining hemostasis. Once hemostasis was confirmed, drains were introduced into both breasts. The breasts were then reapproximated using 4-0 PDS for deep dermal sutures. The NAC was inset using 4-0 PDS and a 4-0 subcuticular Monocryl. The skin incisions were all reapproximated in the same fashion. Dermabond was subsequently applied to the incisions. Attention was then turned to the bilateral arms. The prior area of marked excision was re-marked and measured and confirmed. A light tumescent solution was introduced into the area to be excised. Liposuction was then carried out under the area to be excised only. Approximately 50 mL of fat was removed from both arms. Using a 10-blade, then the excess skin was excised; and using Bovie for cautery, hemostasis was confirmed. The 15-Maori ANJEL drains were then introduced into each arm and brought out through the chest wall. The wounds were then reapproximated using 4-0 Vicryl suture, Insorb stapler, and a skin stapler for the skin. Sterile gauze dressings were applied to the incisions. Attention was then turned to the upper back. Light tumescent solution was used in each side, and then liposuction was carried out for 100 mL on each upper lateral back area that had been previously marked and agreed upon in the Preoperative Holding Area. The patient was subsequently awakened from anesthesia with no apparent complications and taken back to the PACU for further recovery. * Brief Op Note - Marisa Scruggs MD - 07/23/2015 4:53 PM EST Brief Operative Note Patient Name: Hannah Ling : [id number] MR#: [id number] Case Date: 07/23/2015 Surgeon: Surgeon(s) and Role: * Hiram Barrow MD - Primary * Marisa Scruggs MD - Resident-Surgeon Chief Preoperative diagnosis: macromastia Postoperative diagnosis: macromastia Procedure(s): REDUCTION MAMMOPLASTY, HIRAL EXCISION, SKIN AND SUB-Q TISSUE, ARM-HIRAL SUCTION ASSISTED LIPECTOMY,TRUNK-- Liposuction volume 300 ml IV Anesthesia: General Complications: None Fluids: 2L Estimated Blood Loss: 400 mL Drains: 4, 15F ANJEL drains Disposition: awakened from anesthesia, extubated and taken to the recovery room in a stable condition, having suffered no apparent untoward event. Condition: doing well without problems (Please see the Surgical Encounter Summary for any Implant and Specimen details pertinent to this patient.) Associated attestation - Hiram Barrow MD - 07/26/2015 11:10 AM EST I was the attending physician supervising the resident in the above care and I was present with theresident for the tian component(s) of the procedure and remained immediately available throughout the remainder. documented in this encounter Plan of Treatment Not on file documented as of this encounter Procedures Procedure Name Priority Date/Time Associated Diagnosis Comments ECG SCAN 07/26/2015 12:00 AM EST SURGICAL PATHOLOGY REPORT Routine 07/23/2015 2:37 PM EST SPECIMEN TO PATHOLOGY Routine 07/23/2015 2:37 PM EST SPECIMEN TO PATHOLOGY Routine 07/23/2015 2:37 PM EST SPECIMEN TO PATHOLOGY Routine 07/23/2015 2:37 PM EST SPECIMEN TO PATHOLOGY Routine 07/23/2015 2:37 PM EST SUCTION ASSISTED LIPECTOMY,TRUNK (WRVU 4.95) Yes 07/23/2015 1:07 PM EST macromastia EXCISION, SKIN AND SUB-Q TISSUE, ARM-HIRAL (WRVU 10.61) Yes 07/23/2015 1:07 PM EST macromastia REDUCTION MAMMOPLASTY, HIRAL (WRVU 16.03) Yes 07/23/2015 1:07 PM EST macromastia POCT HGB Routine 07/23/2015 11:06 AM EST EXCISION, SKIN AND SUB-Q TISSUE,ARM, HIRAL Routine 07/23/2015 10:51 AM EST SUCTION ASSISTED LIPECTOMY,TRUNK Routine 07/23/2015 10:51 AM EST documented in this encounter Results * SCAN DOC: ECG (07/26/2015 12:00 AM EST) Scanning Provider MEDIA MGR SCAN EXT O RDR/RSLT * Surgical Pathology Report (07/23/2015 2:37 PM EST) Final Diagnosis The signing pathologist has (i) examined the relevant preparation(s) for the specimen(s) and (ii) rendered or confirmed the diagnosis(es). Accession Number: [id number] ?Location: [facility]; [facility]; A . ?Surgical Pathology DIAGNOSIS A - Right breast tissue, reduction mammoplasty (697 grams): Benign breast tissue with adenosis, usual ductal hyperplasia, and columnar cell change/ hyperplasia. B - Left breast tissue, reduction mammoplasty (645 grams): Benign breast tissue. C - Left upper arm tissue: Gross examination only. D - Right upper arm tissue Gross examination only. CR-0 07/28/15 ISSAC 07/28/15 Verified by: ? Yamel JASSO, René Lee ?Pathologist ?(Electronic Signature) The attending pathologist whose signature appears on this report has reviewed all diagnostic slides and has edited the gross and/or microscopic portion of the report in rendering the final pathologic diagnosis. CLINICAL INFORMATION Specimen Submitted: A - Right breast tissue B - Left breast tissue C - Left upper arm tissue D - Right upper arm tissue Clinical History: Macromastia Clinical Diagnosis: Same SPECIMEN PROCESSING A - Labeled/Fixative : Right breast tissue, fresh. Qty/Size/Weight: Multiple, 24 x 19 x 4 cm, 697 grams. Tissue Description: Fibrofatty breast tissue with attached and detached schilling-pink skin. Skin: Unremarkable. Parenchyma: Adipose and dense, rain-white fibrous tissue. Sections/Process ing: (R3) B - Labeled/Fixative : Left breast tissue, fresh. Qty/Size/Weight: Multiple, 20 x 20 x 5 cm, 645 grams. Tissue Description: Fibrofatty breast tissue with attached and detached schilling-pink skin. Skin: Unremarkable. Parenchyma: Adipose and dense, rain-white fibrous tissue. Sections/Process ing: (R3) . SPECIMEN PROCESSING C - Labeled/Fixative : Left upper arm tissue, fresh. Quantity/Size: Single, 23 x 7 x 1.5 cm, 80 grams. Tissue Description: Schilling-pink skin with underlying adipose tissue. No lesions are identified. Sections/Process ing: No sections are submitted. D - Labeled/Fixative : Right upper arm tissue, fresh. Quantity/Size: Single, 24 x 6 x 1.5 cm, 82 grams. Tissue Description: Schilling-pink skin with underlying subcutaneous tissue. No lesions are identified. Sections/Process ing: No sections are submitted. ?? sns 07/28/2015 12:27 PM EST [facility] ABDOMEN / Unknown 07/23/2015 2:37 PM EST 07/23/2015 2:37 PM EST BREAST STRUCTURE / Unknown 07/23/2015 2:37 PM EST 07/23/2015 2:37 PM EST ABDOMEN / Unknown 07/23/2015 2:37 PM EST 07/23/2015 2:37 PM EST ABDOMEN / Unknown 07/23/2015 2:37 PM EST 07/23/2015 2:37 PM EST Hiram Barrow MD PATHOLOGY/CYTOLOGY O LOW Performing Organization Address City/[facility] Co de Phone Number [facility] [place] [address] * Specimen to Pathology (surgical or derm) (07/23/2015 2:37 PM EST) AP Specimen 07/23/2015 2:37 PM EST 07/23/2015 2:37 PM EST Narrative [facility] - 07/23/2015 2:37 PM EST Specimen requisition ordered. ??Separate Pathology report to follow Hiram Barrow MD PATHOLOGY/CYTOLOGY O LOW Performing Organization Address City/[facility] Co de Phone Number [facility] * Specimen to Pathology (surgical or derm) (07/23/2015 2:37 PM EST) AP Specimen 07/23/2015 2:37 PM EST 07/23/2015 2:37 PM EST [facility]arrative [facility] - 07/23/2015 2:37 PM EST Specimen requisition ordered. ??Separate Pathology report to follow Hiram Barrow MD PATHOLOGY/CYTOLOGY O LOW [facility] * Specimen to Pathology (surgical or derm) (07/23/2015 2:37 PM EST) AP Specimen 07/23/2015 2:37 PM EST 07/23/2015 2:37 PM EST Narrative [facility] - 07/23/2015 2:37 PM EST Specimen requisition ordered. ??Separate Pathology report to follow Authorizing Provider Result Hussain Barrow MD PATHOLOGY/CYTOLOGY O RDERABLES Performing Organization Address [facility]/ZIP Co de Phone Number [facility] * Specimen to Pathology (surgical or derm) (07/23/2015 2:37 PM EST) AP Specimen 07/23/2015 2:37 PM EST 07/23/2015 2:37 PM EST Narrative [facility] - 07/23/2015 2:37 PM EST Specimen requisition ordered. ??Separate Pathology report to follow Authorizing Provider Result Hussain Barrow MD PATHOLOGY/CYTOLOGY O RDCANDICE Performing Organization Address [facility]/ZIP Co de Phone Number [facility] * POCT HGB (07/23/2015 11:06 AM EST) POC Hemoglobin 12.9 g/dL 07/23/2015 11:0 6 AM EST Narrative Authorizing Provider Result Hussain Barrow MD POINT OF CARE TEST O RDCANDICE documented in this encounter Visit Diagnoses Not on filedocumented in this encounter Administered Medications Inactive Administered Medications - up to 3 most recent administrations Medication Order MAR Action Action Date Dose Rate Site acetaminophen (TYLENOL) tablet 1,000 mg 1,000 mg, Oral, ONCE, 1 dose, On Sun07/23/15 at 1115, Maximum dose of acetaminophen is 4000 mg from all sources in 24 hours., Day of Surgery (Day of Procedure), Routine Given 07/23/2015 11:19 AM EST 1,000 mg acetaminophen (TYLENOL) tablet 650 mg 650 mg, Oral, EVERY 6 HOURS PRN, Starting on Sun07/23/15 at 1655, Until Sun07/23/15 at 2313, Pain, Maximum dose of acetaminophen is 4000 mg from all sources in 24 hours., Routine Given 07/23/2015 7:22 PM EST 650 mg bacitracin ointment ONCE PRN, Starting on Sun07/23/15 at 1620, Until Sun07/23/15 at 2313, Intra-Operative (Intra-Procedure) Given 07/23/2015 4:20 PM EST 1 Tube 19- Surgical Site EPINEPHrine HCl (PF) injection Soln ONCE PRN, Starting on Sun07/23/15 at 1700, Until Sun07/23/15 at 2313, Intra-Operative (Intra-Procedure), Routine Given 07/23/2015 5:00 PM EST 1 mg 19- Surgical Site promethazine (PHENERGAN) 25 mg/mL injection Starting on Sun07/23/15 at 1757, 1 dose, Until Sun07/23/15 at 1800, SHERRIE GONZALES: cabinet override promethazine (PHENERGAN) injection 6.25 mg 6.25 mg, Intravenous, ONCE PRN, Nausea, Starting on Sun07/23/15 at 1755, 1 dose, Until Sun07/23/15 at 1800, If multiple antiemetics ordered, use ondansetron first and if ineffective use prochlorperazine second and if ineffective use promethazine, PACU Recovery Given 07/23/2015 6:00 PM EST 6.25 mg scopolamine (TRANSDERM-SCOP) 1.5 mg (1 mg over 3 days) patch 1 patch 1 patch, Transdermal, EVERY 72 HOURS, First dose on Sobeida 07/22/15 at 2014, Until Discontinued, Routine Patch Applied 07/23/2015 11:26 AM EST 1 patch 01- Ear Behind (Left) documented in this encounter Active and Recently Administered Medications Times are shown in EST. Scheduled Medication Order 07/21/2015 07/22/2015 07/23/2015 acetaminophen (TYLENOL) tablet 1,000 mg (COMPLETED) 1,000 mg, Oral, ONCE, 1 dose, On Sun07/23/15 at 1115, Maximum dose of acetaminophen is 4000 mg from all sources in 24 hours., Day of Surgery (Day of Procedure), Routine 1119 (Given - Provid er: Latoya Noyola RN) scopolamine (TRANSDERM-SCOP) 1.5 mg (1 mg over 3 days) patch 1 patch (CANCELED)(Linked Group 1) 1 patch, Transdermal, EVERY 72 HOURS, First dose on Sobeida 07/22/15 at 2014, Until Discontinued, Routine 1126 (Patch Applied - Provider: Latoya Noyola RN) Continuous Medication Order 07/21/2015 07/22/2015 07/23/2015 lactated ringers infusion 1,000 mL (CANCELED) 1,000 mL, at 100 mL/hr, Intravenous, CONTINUOUS, Starting on Sun07/23/15 at 1115, Until Sun07/23/15 at 2313, Day of Surgery (Day of Procedure) 1309 (New Bag - Prov ider: Melodie Lucas CRNA)1400 (Anesthesia Volume Adjustment - Provider: Melodie Lucas CRNA)1500 (Anesthesia Volume Adjustment - Provider: Melodie Lucas CRNA)1525 (New Bag - Provider: Melodie Lucas CRNA)1540 (New Bag - Provider: Melodie Lucas CRNA)1600 (Anesthesia Volume Adjustment - Provider: Melodie Lucas CRNA)1650 (New Bag - Provider: Melodie Lucas CRNA) PRN Medication Order 07/21/2015 07/22/2015 07/23/2015 acetaminophen (TYLENOL) tablet 650 mg 650 mg, Oral, EVERY 6 HOURS PRN, Starting on Sun07/23/15 at 1655, Until Sun07/23/15 at 2313, Pain, Maximum dose of acetaminophen is 4000 mg from all sources in 24 hours., Routine 1922 (Given - Provid er: Leon Larry RN) bacitracin ointment (CANCELED) ONCE PRN, Starting on Sun07/23/15 at 1620, Until Sun07/23/15 at 2313, Intra-Operative (Intra-Procedure) 1620 (Given - Provid er: Marisa Scruggs MD) EPINEPHrine HCl (PF) injection Soln (CANCELED) ONCE PRN, Starting on Sun07/23/15 at 1700, Until Sun07/23/15 at 2313, Intra-Operative (Intra-Procedure), Routine 1700 (Given - Provid er: Marisa Scruggs MD - Comment: tumescent solution: 1000 ml NaCl 1 ml epinephrine 1:1000 50 ml 1% lidocaine total of mixture given: 400ml) promethazine (PHENERGAN) injection 6.25 mg (COMPLETED) 6.25 mg, Intravenous, ONCE PRN, Nausea, Starting on Sun07/23/15 at 1755, 1 dose, Until Sun07/23/15 at 1800, If multiple antiemetics ordered, use ondansetron first and if ineffective use prochlorperazine second and if ineffective use promethazine, PACU Recovery 1800 (Given - Provid er: Leon Larry RN) Linked Groups Order Group 1: scopolamine (TRANSDERM-SCOP) 1.5 mg (1 mg over 3 days) patch 1 patch (CANCELED)Jump to med 1 patch, Transdermal, EVERY 72 HOURS, First dose on Sobeida 07/22/15 at 2015, Until Discontinued, Routine And scopolamine (TRANSDERM-SCOP) 1.5 mg patch Patch Verification (CANCELED) Transdermal, 2 TIMES DAILY, First dose on 07/23/15 at 0800, Until Discontinued, Verify scopolamine 1.5 mg patch. And scopolamine (TRANSDERM-SCOP) 1.5 mg patch Patch Removal (CANCELED) Transdermal, EVERY 72 HOURS, First dose on Sun07/25/15 at 2000, Until Discontinued, Remove scopolamine 1.5 mg patch documented in this encounter Care Teams Domestic Freight Forwarder Relationship Specialty Start Date End Date Avery Caballero MD [address] [place] [address] PCP - General 04/15/14 documented as of this encounter
--- OUTSIDE RECORDS SUMMARY | 2024-04-08 18:08 | XMS_ITS | Encounter Summary ---
Author [facility] [place] [address] Care Team Providers Care Purifying Plant Operator Name Role Phone Avery Caballero MD Primary Care Provider [phone] Reason for Visit * Reason Comments Follow Up Surgery s/p brachioplasty an d bbr dos 07/23 Encounter Details Date Type Department Care Team (Late st Contact Info) Description 09/30/2015 3:45 PM EST Office [place] [address] Hiram Nascimento MD [facility] [place] [address] S/P bilateral breast reduction Social History Tobacco [...] * Patient Instructions* Darcy Neves RN - 09/30/2015 4:14 PM EST -SCAR MASSAGE TECHNIQUE: to begin 4-6 weeks following surgery What is a scar? When an injury occurs, the body immediately begins to repair itself & the area becomes swollen & sore. Eventually small collagen fibers form, becoming a solid tissue that results in a scar. This scar will continue to change in appearance for 1-2 years. Ideally, a scar is smooth & flat, blending in with the surrounding skin. However, some scars may become highly visible & unattractive due to factors such as your age, scar location & size, nutrition, genetics, or infection. A hypertrophic scar occurs when there is an excess production of collagen tissue that is elevated but remains within the wound boundaries. The scar is tense, red, & can be associated with itching & tenderness. A hypertrophic scar can be ordinary (usually stabilizes in 3 months & may even get smaller and smoother) or keloid. The keloid scar invades nearby tissue that was not part of the original wound, tends to enlarge even after 6 months & does not get softer. Will scar massage make my scars disappear? Nothing can make scars disappear. However, massaging the scar assists the body in breaking down thescar tissue to give it a flatter, softer, appearance. Massage also mobilizes the scar, preventing it from adhering to underlying tissue, tendons, & nerves. You can make the greatest difference in the appearance of the scar if you massage it in the first 3months. What should I use on my scars? You will hear many recommendations. This clinic finds that it is the massage itself that reduces the scar & not necessarily the choice of ointments or creams. We do discourage the use of Vitamin E oil, however, due to studies that have reported scar inflammation & deterioration. How do I massage my scars? Generously apply the lotion or cream into the scar 3-4 times a day for 8 weeks on new scars, and 3-4 times per day for 3 to 6 months on existing scars. Using your finger, apply pressure to the scar in a crosswise & circular direction, bearing down as hard as tolerated. Remember to protect your scar from the sun, especially in the first 6-12 months, by using a moisturizer with sunblock and wearing a physical barrier (ie: a hat) when possible Follow up in 3 months, discuss revisions to abdomen. documented in this encounter Progress Notes * Hiram Nascimento MD - 09/30/2015 3:49 PM EST Plastic Surgery Post Op Note Hannah Ling returned to our office today for post surgical follow-up Date of surgery: 07/23/15 Procedure(s): Bilateral breast reduction and bilateral liposuction of arms Complications: None reported HPI:: She reports occasional stabbing pain along her lateral right breast. She still has a small open spot under her left breast. She still has not been able to find a comfortable bra. She is happy with the size of her breasts. She would like to discuss an abdominoplasty revision at her next visit.She has an area on her left abdomen that bulges out. Exam: Breasts scars are maturing positively, there is a small open area along the T junction of the left breast. Surfacing sutured removed NAC Viable, and sensate bilaterally Breasts are symmetric in volume and NAC position Bilateral arm stab incisions are well healed, improved contour of the upper arms Abdominal contour is improved with bilateral dog ears. Impression: S/P bilateral breast reduction, and upper arm liposuction. Good post operative course. Plan: follow Up 3 months for a 30 minute appointment to discuss revisions to abdominoplasty IFaithHannahsergio Roger, am acting as scribe for Dr Nascimento. All work documented was performed by Dr Nascimento. ???I performed the above scribed service and agree with the accuracy of the note?? HIRAM NASCIMENTO MD documented in this encounter Plan of Treatment Not on file documented as of this encounter Visit Diagnoses Diagnosis S/P bilateral breast reduction Other postprocedural status documented in this encounter Care Teams Purifying Plant Operator Relationship Specialty Start Date End Date Avery Caballero MD [address] [place] [address] PCP - General 04/15/14 documented as of this encounter
--- OUTSIDE RECORDS SUMMARY | 2024-04-08 18:08 | XMS_ITS | Encounter Summary ---
[place] [address] Care Team Providers Care Grommet Machine Operator Name Role Phone Avery Caballero MD Primary Care Provider + [phone] Reason for Visit * Reason Onset Date Comments Questions 11/09/2021 Encounter Details Date Type Department Care Team (Late st Contact Info) Description 11/09/2021 Telephone [place] [address] Yenifer Ellis MD [facility] [address] [place] [address] Questions Social History Tobacco Use Types Packs/Day Years [...] encounter Miscellaneous Notes * Telephone Encounter - Amirah Cee - 11/09/2021 3:24 PM EST Who is calling: [employer] What is the question: [employer] called in looking to clarify patients restrictions for right foot. Best number to reach the caller: [phone] documented in this encounter Plan of Treatment Not on file documented as of this encounter Visit Diagnoses Not on filedocumented in this encounter Care Teams Grommet Machine Operator Relationship Specialty Start Date End Date Avery Caballero MD [address] [place] [address] PCP - General 04/15/14 documented as of this encounter
--- OUTSIDE RECORDS SUMMARY | 2024-04-08 18:08 | XMS_ITS | Encounter Summary ---
[place] [address] Care Team Providers Care Cigarette Paper Tester Name Role Phone Avery Caballero MD Primary Care Provider [phone] Reason for Visit * Auth/Cert Specialty Diagnoses / Procedures Referred By Kiarra banuelos Referred To Contact Diagnoses Hypertrophy of breast Unspecified hypertrophic and atrophic condition of skin macromastia Procedures PRO REDUCTION OF LARGE BREAST PRO EXCISE EXCESS SKIN TISSUE, ARM PRO SUCT BERTO LIPECTOMY, TRUNK REDUCTION MAMMOPLASTY, HIRAL Referral ID Status Reason Start Date Expiration Date Visits Re quested Visits Authorized [id number] 1 1 Encounter Details Date Type Department Care Team (Late st Contact Info) Description 07/23/2015 1:09 PM EST Anesthesia [place] [address] Paul Borden MD [facility] DR [place] [address] Anesthesia Record Procedure Summary Procedure Name Responsible Anesthesiologist Anesthesia Start Time Anesthesia Stop Time REDUCTION MAMMOPLASTY, HIRAL (WRVU 16.03) (Bilateral: Breast) Paul Borden MD 07/23/15 1309 07/23/15 1714 Events Date Time Event Comment 07/23/2015 1119 1309 AN Verify 1309 Start Scopolamine pat ch behind L ear and PO acetaminophen given 1309 An Start Data 1312 An Induction 1316 An Intubation 1332 Anesthesia Ready 1400 Procedure Start 1549 Break/Relief In JANELLE Zeng SC PROSPERLER, WIRE CUTTER 1609 Break/Relief Out 1654 Procedure Stop 1703 Extubation/LMA Out Extubatio n notes: SV c TV 100-220 RR 8-10. HOB elevated, NA placed. ETT out c PP s/p deep pharyngeal suctioning. SV resumed, O2 via FM. VSS. Transported to recovery. 1704 an stop data 1714 Recovery or ICU Handoff Samantha ent care was transferred to the destination unit staff after review of the patient's medical history, current anesthetic/surgical status and plan, according to the Provider Handoff Checklist. 171 Stop Arrived to megha very, Monitors attached, VSS, O2 via FM, ventilating well c NA in place. Reported SBAR to nurse. Pt appropriate. Care Transferred. Meds Name Total Midazolam 2 mg fentaNYL 200 mcg IV Lidocaine 60 mg Propofol 270 mg Rocuronium 50 mg PHENYLephrine 160 mcg ePHEDrine 20 mg Ondansetron 8 mg Dexamethasone 8 mg ceFAZolin 4 g Propofol INF 3,379.95 mg Dexmedetomidine INF 128.43 mcg HYDROmorphone 0.2 mg lactated ringers infusion 1,000 mL 1,900 mL * Agents Name O2 Air Sevoflurane (et) Isoflurane (et) * Blood No blood administrations on file. Lines, Drains, and Airways Type Details Placement Removal Drain/Device Site 06/19/14; Left; groi n; collapsible closed device; 19 Cambodian Spencer drain. 06/19/14 0000 by Nicole Dee RN Drain/Device Site 06/19/14; Right; erick in; collapsible closed device; 19 Camb[place]ian Spencer drain. 06/19/14 0000 by Nicole Dee RN Drain/Device Site 06/19/14; Right; upp er; thigh; collapsible closed device; 15 fr spencer drain 06/19/14 0000 by Hannah Perdomo RN Drain/Device Site 07/23/15; Left; l[address] st; collapsible closed device; 15 fr. spencer drain 07/23/15 0000 by Nydia Fontana RN Drain/Device Site 07/23/15; Right; breast; collapsible closed device; 15 fr. spencer drain 07/23/15 0000 by Nydia Fontana RN Drain/Device Site 07/23/15; Left; axil la; collapsible closed device; 15 fr spencer drain 07/23/15 0000 by Nydia Fontana, RN Drain/Device Site 07/23/15; Right; axilla; collapsible closed device; 15 fr spencer 07/23/15 0000 by Nydia Fontana, RN Incision 06/19/14; abdomen; 05/01/22 (LDA cleanup utility RA#[id number]); 1715 (LDA cleanup utility RA#[id number]) 06/19/14 0000 by Nicole Dee RN 05/01/22 1715 by Piotr Reid (RETIRED) Peripheral IV Line - Single Lumen 10/06/14; 1542; median cubital vein right (antecubital fossa); srqf-oze-vfnuao catheter system; 22 gauge; Ace Rashid RN; intradermal injection, tolerated well, appears comfortable; 07/23/15; 210710/06/14 1542 by Germain Rashid RN 07/23/152107 by Leon Larry, RN Urethral Catheter 07/23/15; Surgery longer than 2 hours; indwelling double lumen catheter; 100% silicone; 16; inserted at this facility; 1; 5; 10; none; drainage bag to dependent drainage; urethral catheter removed; Inserted without difficulty by Nikolas Fontana RN; 07/23/15; 16507/23/15 0000 by Nydia Fontana RN 07/23/15 1653 by Nydia Fontana, RN Incision 07/23/15; arm; 05/01 (LDA cleanup utility RA#[id number]); 1715 (LDA cleanup utility RA#[id number]) 07/23/15 0000 by Nydia Fontana RN 05/01/22 1715 by Piotr Reid Incision 07/23/15; breast; 05/01/22 (LDA cleanup utility RA#[id number]); 1715 (LDA cleanup utility RA#[id number]) 07/23/15 0000 by Nydia Fontana RN 05/01/22 1715 by Piotr Reid ETT Mask Ventilation: Ea sy (1); ETT Type: Cuffed; ETT Size: 7 mm; Jack Blade: 2; Notes: Pre-O2, Stylette; Attempts: 1; Laryngoscopy Grade: 1; Secured at Teeth: 22 cm; Inserted by: Jesus Lucas; Removal Date: 07/23/15; Removal Time: 170207/23/15 1332 by Melodie Lucas CRNA 07/23/15 170 by Melodie Lucas CRNA (RETIRED) Peripheral IV Line - Single Lumen 07/23/15; 1352; ldky-wpp-swbpyr catheter system; 22 gauge, 1 in length; distraction, intradermal injection, tolerated well, appears comfortable; 07/23/15; 210707/23/15 1352 by Pricilla Ko RN 07/23/152107 by Leon Larry RN documented in this encounter Social History Tobacco Use Types Packs/Day Years Used Date Smoking Tobacco: Never Smokeless Tobacco: Never Alcohol Use Standard Drinks/Week Comments No 0 (1 standard drink = 0.6 oz pur e alcohol) Sex and Gender Information Value Date Recorded Sex Assigned at Not on file Gender Identity Not on file Sexual Orientation Not on file documented as of this encounter OR Notes * Anesthesia Postprocedure Evaluation - Paul Borden MD - 07/23/2015 7:46 PM EST Patient: Hannah Ling Procedure(s) Performed: Procedure(s): REDUCTION MAMMOPLASTY, HIRAL EXCISION, SKIN AND SUB-Q TISSUE, ARM-HIRAL SUCTION ASSISTED LIPECTOMY,TRUNK Actual Anesthetic: general Patient location: PACU Post-op pain: Adequate analgesia Post-op nausea: no nausea or vomiting Last Vitals: Filed Vitals: 07/23/15 1930 BP: 121/54 Pulse: 56 Temp: Resp: 16 Post-op cardiovascular and respiratory status: is stable Level of consciousness: awake, alert and oriented Complications: no apparent complications and tolerated the procedure well Fluid Status: normal * Anesthesia Postprocedure Evaluation - Paul Borden MD - 07/23/2015 7:45 PM EST Patient: Hannah Ling Procedure(s) Performed: Procedure(s): REDUCTION MAMMOPLASTY, HIRAL EXCISION, SKIN AND SUB-Q TISSUE, ARM-HIRAL SUCTION ASSISTED LIPECTOMY,TRUNK Actual Anesthetic: general Patient location: PACU Post-op pain: Adequate analgesia Post-op nausea: no nausea or vomiting Last Vitals: Filed Vitals: 07/23/15 1930 BP: 121/54 Pulse: 56 Temp: Resp: 16 Post-op cardiovascular and respiratory status: is stable Level of consciousness: awake, alert and oriented Complications: no apparent complications and tolerated the procedure well Fluid Status: normal * Anesthesia Preprocedure Evaluation - Paul Borden MD - 07/22/2015 7:37 PM EST Images from the original note were not included. Pre-Anesthesia Evaluation for: Hannah Ling a 50 y.o. female. Procedure(s): REDUCTION MAMMOPLASTY, HIRAL EXCISION, SKIN AND SUB-Q TISSUE, ARM-HIRAL SUCTION ASSISTED LIPECTOMY,TRUNK REDUCTION MAMMOPLASTY, HIRAL Patient Active Problem List Diagnosis ??? Macromastia ??? Excess skin of arms bilaterally ??? S/P panniculectomy ??? Other specified aftercare following surgery ??? Abdominal pannus ??? Lipodystrophy Past Medical History Diagnosis Date ??? Allergy [...] PLICATION performed by Hiram Barrow MD at [facility] MA[facility] OR ??? Pro excise excess skin tissue, thigh 06/19/2014 EXCISION EXCESSIVE SKIN AND TISSUE-THIGH performed by Hiram Barrow MD at [facility] MA[facility] OR ??? Pro suct berto lipectomy, low extrem 06/19/2014 SUCTION ASSISTED LIPECTOMY, LOWER EXTREMITY-HIRAL performed by Hiram Barrow MD at [facility] MA[facility] OR ??? Appendectomy ??? Pro colonoscopy, biopsy N/A 10/06/2014 COLONOSCOPY FLEXIBLE, WITH BX performed by Bassem Norman MD at [facility] ENDOSCOPY ??? Pro upper gi endoscopy, biopsy N/A 10/06/2014 EGD WITH BIOPSY performed by Bassem Norman MD at [facility] ENDOSCOPY History Substance Use Topics ??? Smoking status: Never Smoker ??? Smokeless tobacco: Never Used ??? Alcohol Use: No History Drug Use No Allergies Allergen Reactions ??? Latex Other (See Comments) Localized blister/swelling/open skin ??? Meclizine Other (See Comments) unresponsive ??? Tegaderm [Transparent Dressings] Rash Raw skin instantly and hives Medications: MAR and/or home medications have been reviewed. Physical Exam: There were no vitals filed for this visit. There is no weight on file to calculate BMI. Airway Assessment: Mallampati: I TM distance: >3 FB Neck ROM: full Cardiovascular Assessment: Rhythm: regular Rate: normal Pulmonary Assessment: breath sounds clear to auscultation Dental Assessment: Misc Assessment: Patient is wearing No contact(s). Anesthesia Plan: ASA 2 general, with a(n) intravenous induction Brief HPI: 50 y.o. with macromastia to OR for reduction mammaplasty/lipectomy/excision of redundantarm skin Patient Active Problem List: Obesity Asthma: well controlled Macromastia GERD: well controlled ALLERGIES: latex, mecloizine METS:>4 Cardiac Symptoms: denies EKG: none ECHO: none LABS: Lab Results Component Value Date HGB 10.3* 09/30/2014 PLATELET 204 09/30/2014 NA 140 09/30/2014 K 3.8 09/30/2014 CREATININE 0.53* 09/30/2014 Past anesthetic problems: significant PONV Last anesthetic record (on eDH): easy MV, grade 2 w/ MAC 4 NPO status: Reviewed and appropriate Anesthetic Plan: GA/TIVA, scopolamine patch Monitoring: Standard ASA monitors * Patient requests to have glasses placed back on TARA after surgery Region - Other Informed Consent: Anesthetic plan and risks discussed with patient and spouse. Use of blood products discussed with patient and spouse whom. PAT Staff Note documented in this encounter Plan of Treatment Not on file documented as of this encounter Visit Diagnoses Not on filedocumented in this encounter Administered Medications Inactive Administered Medications - up to 3 most recent administrations Medication Order MAR Action Action Date Dose Rate Site ceFAZolin (ANCEF) 1g in dextrose 5% 50mL PRN, Starting on Sun07/23/15 at 1332, Until Sun07/23/15 at 1715, Administer over 30 Minutes, Anesthesia Intra-op Given 07/23/2015 4:32 PM EST 2 g Given 07/23/2015 1:32 PM EST 2 g dexamethasone (DECADRON) injection PRN, Starting on Sun07/23/15 at 1311, Until Sun07/23/15 at 1715, Anesthesia Intra-op, Routine Given 07/23/2015 1:11 PM EST 8 mg dexmedetomidine (PRECEDEX) IV infusion (anesthesia) CONTINUOUS PRN, Starting on Sun07/23/15 at 1346, Until Sun07/23/15 at 1715, Anesthesia Intra-op, Routine Rate/Dose Change 07/23/2015 4:40 PM EST 0.2 mcg/kg/hr 4.1 mL/hr Rate/Dose Change 07/23/2015 4:20 PM EST 0.4 mcg/kg/hr 8.1 mL/hr Rate/Dose Change 07/23/2015 2:46 PM EST 0.6 mcg/kg/hr 12.2 mL/hr ePHEDrine 5 mg/mL multi-dose injection PRN, Starting on Sun07/23/15 at 1509, Until Sun07/23/15 at 1715, Anesthesia Intra-op, Routine Given 07/23/2015 3:54 PM EST 5 mg Given 07/23/2015 3:44 PM EST 5 mg Given 07/23/2015 3:09 PM EST 10 mg fentaNYL 50 mcg/mL multi-dose injection PRN, Starting on Sun07/23/15 at 1355, Until Sun07/23/15 at 1715, Pain, Anesthesia Intra-op, Routine Given 07/23/2015 2:06 PM EST 100 mcg Given 07/23/2015 1:55 PM EST 100 mcg HYDROmorphone (DILAUDID) injection PRN, Starting on Sun07/23/15 at 1645, Until Sun07/23/15 at 1715, Pain, Anesthesia Intra-op, Routine Given 07/23/2015 4:45 PM EST 0.2 mg lactated ringers infusion 1,000 mL 1,000 mL, at 100 mL/hr, Intravenous, CONTINUOUS, Starting on Sun07/23/15 at 1115, Until Sun07/23/15 at 2313, Day of Surgery (Day of Procedure) New Bag 07/23/2015 4:50 PM EST New Bag 07/23/2015 3:40 PM EST New Bag 07/23/2015 3:25 PM EST lidocaine (PF) (XYLOCAINE) 100 mg/5 mL (2 %) injection PRN, Starting on Sun07/23/15 at 1311, Until Sun07/23/15 at 1715, Anesthesia Intra-op, Routine Given 07/23/2015 1:11 PM EST 60 mg midazolam (PF) (VERSED) 1 mg/mL multi-dose injection PRN, Starting on Sun07/23/15 at 1309, Until Sun07/23/15 at 1715, Sleep, Anesthesia Intra-op, Routine Given 07/23/2015 1:15 PM EST 1 mg Given 07/23/2015 1:09 PM EST 1 mg ondansetron (ZOFRAN) injection PRN, Starting on Sun07/23/15 at 1645, Until Sun07/23/15 at 1715, Nausea, Anesthesia Intra-op, Routine Given 07/23/2015 4:45 PM EST 8 mg PHENYLephrine HCl in NS (PF) (TYSHAWN-SYNEPHRINE) 0.8 mg/10 mL (80 mcg/mL) multi-dose injection Syrg PRN, Starting on Sun07/23/15 at 1500, Until Sun07/23/15 at 1715, Anesthesia Intra-op, Routine Given 07/23/2015 3:07 PM EST 80 mcg Given 07/23/2015 3:00 PM EST 80 mcg propofol (DIPRIVAN) 10 mg/mL bolus injection (Anesthesia) PRN, Starting on Sun07/23/15 at 1311, Until Sun07/23/15 at 1715, Anesthesia Intra-op Given 07/23/2015 2:31 PM EST 20 mg Given 07/23/2015 2:03 PM EST 50 mg Given 07/23/2015 1:11 PM EST 200 mg propofol (DIPRIVAN) infusion CONTINUOUS PRN, Starting on Sun07/23/15 at 1316, Until Sun07/23/15 at 1715, Anesthesia Intra-op, Routine Rate/Dose Change 07/23/2015 4:40 PM EST 100 mcg/kg/min 48.7 mL/hr Rate/Dose Change 07/23/2015 3:57 PM EST 150 mcg/kg/min 73. 1 mL/hr Rate/Dose Change 07/23/2015 3:01 PM EST 200 mcg/kg/min 97. 4 mL/hr rocuronium (ZEMURON) multi-dose injection PRN, Starting on Sun07/23/15 at 1312, Until Sun07/23/15 at 1715, Anesthesia Intra-op, Routine Given 07/23/2015 1:12 PM EST 50 mg documented in this encounter Care Teams Cigarette Paper Tester Relationship Specialty Start Date End Date Avery Caballero MD [address] [place] [address] PCP - General 04/15/14 documented as of this encounter
--- OUTSIDE RECORDS SUMMARY | 2024-04-08 18:08 | XMS_ITS | Encounter Summary ---
[place] [address] Care Team Providers Care Laundrette Owner Name Role Phone Avery Caballero MD Primary Care Provider [phone] Encounter Details Date Type Department Care Team (Late st Contact Info) Description 05/04/2022 8:59 AM EDT Anesthesia Event [place] [address] Mandi Robb MD [facility] [place] [address] Anesthesia Record Procedure Summary Procedure Name Responsible Anesthesiologist Anesthesia Start Time Anesthesia Stop Time ARTHRODESIS, MIDTARSAL OR TARSOMETATARSAL W/O OSTEOTOMY (WRVU 10.7) (Right: Ankle) Mandi Robb MD 05/04/22 0859 05/04/22 1201 Events Date Time Event Comment 05/04/2022 0826 0859 AN Verify 0859 Start 0901 An Start Data 0906 An Induction 0908 An Intubation 0909 Anesthesia Ready 09 Procedure Start 09 Break/Relief In I assumed ca re for Break Relief before which we: 1. Identified the patient 2. Identified the responsible provider(s) 3. Reviewed the pertinent medical history 4. Discussed the surgical plan and course 5. Reviewed intra-op anesthesia management and issues during anesthesia 6. Set expectations for the relief (and/or post-procedure) period 7. Allowed opportunity for questions and acknowledgement of understanding Germain Adams, SHAWNA 0943 Break/Relief Out 0947 An Tourn Inflated 1134 An Tourn Deflated 1150 Extubation/LMA Out 1201 an stop data 1201 Recovery or ICU Handoff Samantha ent care was transferred to the destination unit staff after review of the patient's medical history, current anesthetic/surgical status and plan, according to the Provider Handoff Checklist. 1201 Stop Meds Name Total fentaNYL 100 mcg Propofol 200 mg Propofol INF 3,282.47 mg Dexmedetomidine 16 mcg Dexamethasone 8 mg Ondansetron 8 mg PHENYLephrine 80 mcg ePHEDrine 5 mg ROpivacaine 0.5% 30 mL ceFAZolin (Ancef) 2 g vial a ttach to sodium chloride 0.9% 100 mL Mini-Bag Plus 2 g lactated ringers infusion 1,000 mL * Agents Name O2 Air N2O Sevoflurane (et) * Blood No blood administrations on file. Lines, Drains, and Airways Type Details Placement Removal Drain/Device Site 06/19/14; Left; groi n; collapsible closed device; 19 [place] Spencer drain. 06/19/14 0000 by Nicole Dee RN Drain/Device Site 06/19/14; Right; erick in; collapsible closed device; 19 [place] Spencer drain. 06/19/14 0000 by Nicole Dee [...] fr spencer drain 07/23/15 0000 by Nydia Fontana RN Drain/Device Site 07/23/15; Right; axilla; collapsible closed device; 15 fr spencer 07/23/15 0000 by Nydia Fontana, RN Incision 05/04/22; 0920; Righ t; foot 05/04/22 0920 by Cici Corral RN (RETIRED) Peripheral IV Line - Single Lumen 05/04/22; 0802; metacarpal vein (top of hand), left; [id number] catheter system; Anatomical Landmarks; 22 gauge; distraction; 05/04/22; 1245 05/04/22 0802 by Heather Jovel RN 05/04/22 1245 by Katja Nicole RN documented in this encounter Social History [...] OR Notes * Anesthesia Postprocedure Evaluation - Mandi Robb MD - 05/04/2022 1:32 PM EDT Department of Anesthesiology Post-procedure Note Patient: Hannah Ling Procedure Summary Date: 05/04/22 Room / Location: [facility] [place] [address] [place] [address] Anesthesia Start: 858 Anesthesia Stop: 120 Procedures: ARTHRODESIS, MIDTARSAL OR TARSOMETATARSAL W/O OSTEOTOMY (WRVU 10.7) (Right Ankle) REMOVAL OF IMPLANT, DEEP, FOOT (WRVU 5.96) (Right Foot) ADJ.TISSUE TRANSFER, REARRANGEMENT, 10.1 TO 30 SQ.CM, FEET (WRVU 10.83) (Right Foot) 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 Patient Location: PACU/[facility] Level of Consciousness: Awake and Alert Pain Management: Satisfactory Analgesia PONV: None Cardiovascular Status: At Baseline Respiratory Status: At Baseline Postoperative Fluid Status: Possible Anesthetic Complications: NONE apparent at time of evaluation Final Primary Anesthesia Type: General (The anesthetic type performed was the same as planned.) Comments: * Anesthesia Procedure Notes - Mandi Robb MD - 05/04/2022 8:46 AM EDTAssociated Order(s): Anesthesia Block Anesthesia Block Date/Time: 05/04/2022 8:40 AM Performed by: Mandi Robb MD Authorized by: Mandi Robb MD Start Time: 05/04/2022 8:40 AM End Time: 05/04/2022 8:45 AM Patient Location: PreOp The patient was greeted; the risks and benefits of the procedure were reviewed. Indication: Post-op Pain Control Post-op pain management at the request of surgeon. Block Type: Adductor canal block and sciatic sciatic/ popliteal nerve block Laterality: Right Position: Supine Prep: Chlorhexidine, patient draped and mask, cap, sterile gloves, hand hygeine Skin Anesthetic: Skin Anesthetic: Lidocaine 1% dose: 5 Block Technique: SonoPlex 21 10 cm Ultrasound Guided: YES and in-plane Ultrasound Image Saved Ultrasound guidance was used to identify the targeted neuronal structure. Ultrasound was also used to identify needle position and to identify tissue (bone, muscle, and blood vessels) to prevent inadvertent intraneural or intravascular needle placement and injection. The spread of local anesthetic was confirmed with live ultrasound imaging. Single-Shot: Single-shot Local Anesthetic Volume(s) Injected for Nerve Block: ROpivacaine 0.5% - Perineural 30 mL - 05/04/2022 8:40:00 AM Nerve Sensory/MotorTest: Action Taken: 20cc at sciatic and 10cc at saphenous Staff: Attending Physician:: Mandi Rbob MD * Anesthesia Preprocedure Evaluation - Mandi Robb MD - 05/03/2022 1:47 PM EDT Pre-Anesthesia Evaluation for: Hannah Ling a 57 y.o. female. Procedure(s): ARTHRODESIS, MIDTARSAL OR TARSOMETATARSAL W/O OSTEOTOMY (WRVU 10.7) REMOVAL OF IMPLANT, DEEP, FOOT (WRVU 5.96) ADJ.TISSUE TRANSFER, REARRANGEMENT, 10.1 TO 30 SQ.CM, FEET (WRVU 10.83) Patient Active Problem List Diagnosis Date Noted ??? Nonunion after arthrodesis 09/25/2021 ??? Post-traumatic osteoarthritis of right ankle 09/25/2021 ??? Pain of right heel 08/28/2017 ??? S/P bilateral breast reduction 09/30/2015 ??? Macromastia 04/12/2015 ??? Excess skin of arms bilaterally 04/12/2015 ??? S/P panniculectomy 11/25/2014 ??? Other specified aftercare following surgery 07/01/2014 ??? Abdominal pannus 04/15/2014 ??? 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 Allergy ??? Breathing problem ??? Digestive problems ??? ENT disease ??? Eye problems ??? GERD (gastroesophageal reflux disease) ??? Musculoskeletal disease Past Surgical History: Procedure Laterality Date ??? APPENDECTOMY ??? PRG UNLISTED DIAGNOSTIC GASTROENTEROLOGY PROCEDURE ??? PRO COLONOSCOPY, BIOPSY N/A 10/06/2014 COLONOSCOPY FLEXIBLE, WITH BX performed by Bassem Norman MD at [facility] ENDOSCOPY ??? PRO EXCISE EXCESS SKIN TISSUE, ABDOMEN, ADD-ON 06/19/2014 ABDOMINOPLASTY EXC,W/ UMBILICAL TRANSPOSITION, FASCIAL PLICATION performed by Hiram Barrow MD at [facility] MAIN OR ??? PRO EXCISE EXCESS SKIN TISSUE, ARM Bilateral 07/23/2015 EXCISION, SKIN AND SUB-Q TISSUE, ARM-HIRAL performed by Hiram Barrow MD at [facility] MAIN OR ??? PRO EXCISE EXCESS SKIN TISSUE, THIGH 06/19/2014 EXCISION EXCESSIVE SKIN AND TISSUE-THIGH performed by Hiram Barrow MD at [facility] OR ??? PRO REDUCTION OF LARGE BREAST Bilateral 07/23/2015 REDUCTION MAMMOPLASTY, HIRAL performed by Hiram Barrow MD at [facility] OR ??? PRO SUCT BERTO LIPECTOMY, LOW EXTREM 06/19/2014 SUCTION ASSISTED LIPECTOMY, LOWER EXTREMITY-HIRAL performed by Hiram Barrow MD at [facility] OR ??? PRO SUCT BERTO LIPECTOMY, TRUNK Bilateral 07/23/2015 SUCTION ASSISTED LIPECTOMY,TRUNK performed by Hiram Barrow MD at [facility] OR ??? PRO UNLISTED CRANIO/MAXILLOFACIAL SURG ??? PRO UNLISTED PROCEDURE PHARYNX ADENOIDS/TONSILS ??? PRO UNLISTED PROCEDURE, MUSCULOSKELETAL SYSTEM, GENERAL ??? PRO UNLISTED PX FEMALE GEN SYS ??? PRO UPPER GI ENDOSCOPY, BIOPSY N/A 10/06/2014 EGD WITH BIOPSY performed by Bassem Norman MD at [facility] ENDOSCOPY Social History Tobacco Use ??? Smoking status: Never Smoker ??? Smokeless tobacco: Never Used Substance Use Topics ??? Alcohol use: No Social History Substance and Sexual Activity Drug Use No Allergies Allergen Reactions ??? Latex Other (See Comments) Localized blister/swelling/open skin ??? Adhesive Tape Hives No silk tape; paper tape is fine ??? Ibuprofen Other reaction(s): Other (See Comment) ??? Meclizine Other (See Comments) unresponsive ??? Tegaderm [Transparent Dressings] Rash Raw skin instantly and hives ??? Unable To Find [Unclassified Drug] Steri strips Medications: MAR and/or home medications have been reviewed. Physical Exam: Preprocedure Vitals Current as of 05/03/22 1347 No BP, pulse, respiration, SpO2, or temperature recorded. Height: Weight: BMI: IBW: 39.1 kg (86 lb 3.6 oz) Airway Assessment: Mallampati: II TM distance: >3 FB Neck ROM: full Cardiovascular Assessment: system normal Pulmonary Assessment: pulmonary exam normal Dental Assessment: Comment: Upper and lower partials Misc Assessment: IV access: Peripheral line Last Filed Perioperative Cognitive Screening None Anesthesia Plan: ASA 2 general, with a(n) intravenous induction 57 y.o., 86 kg female presenting for right ankle arthrodesis PMH significant for asthma well controlled with daily inhalers, PONV. Allergies to latex, tegaderm,tape (paper tape ok), ibuprofen, and steri strips Anesthetic hx: No reported prior complications with anesthesia Airway hx: easy MV, Jack 2 gr 1 Lab Results Component Value Date HGB 10.3 (L) 09/30/2014 PLATELET 204 09/30/2014 NA 140 09/30/2014 K 3.8 09/30/2014 CREATININE 0.53 (L) 09/30/2014 Anesthetic Plan: preop pop saph, GA/LMA, std monitors, PIVx1, preop scop patch and PONV ppx Region - Other Informed Consent: Anesthetic plan and risks discussed with patient. Plan discussed with attending and TRANSMISSION LINE ENGINEER. Anesthesia Screening documented in this encounter Plan of Treatment Not on file documented as of this encounter Procedures Procedure Name Priority Date/Time Associated Diagnosis Comments ANESTHESIA BLOCK Routine 05/04/2022 8:40 AM EDT documented in this encounter Results * Anesthesia Block (05/04/2022 8:40 AM EDT) Narrative Mandi Robb MD - 05/04/2022 8:40 AM EDT Mandi Robb MD ? 05/04/2022 ??8:47 AM Anesthesia Block Date/Time: 05/04/2022 8:40 AM Performed by: Mandi Robb MD Authorized by: Mandi Robb MD Start Time: ??05/04/2022 8:40 AM End Time: ??05/04/2022 8:45 AM Patient Location: ??PreOp The patient was greeted; the risks and benefits of the procedure were reviewed. ?? Indication: ??Post-op Pain Control Post-op pain management at the request of surgeon. ?? Block Type: ??Adductor canal block and sciatic sciatic/ popliteal nerve block Laterality: ??Right Position: ??Supine Prep: ??Chlorhexidine, patient draped and mask, cap, sterile gloves, hand hygeine Skin Anesthetic: ??Skin Anesthetic: ??Lidocaine 1% ??dose: ??5 Block Technique: ?? SonoPlex ?? 21 ?? 10 cm ??Ultrasound Guided: ??YES and in-plane ??Ultrasound Image Saved ?Ultrasound guidance was used to identify the targeted neuronal structure. Ultrasound was also used to identify needle position and to identify tissue (bone, muscle, and blood vessels) to prevent inadvertent intraneural or intravascular needle placement and injection. The spread of local anesthetic was confirmed with live ultrasound imaging. ?Single-Shot: ??Single-shot Local Anesthetic Volume(s) Injected for Nerve Block: ?? ROpivacaine 0.5% - Perineural 30 mL - 05/04/2022 8:40:00 AM Nerve Sensory/MotorTest: ?? Action Taken: ??20cc at sciatic and 10cc at saphenous Staff: ??Attending Physician:: ??Mandi Robb MD Mandi Robb MD RADIO TOWER TECHNICIAN [facility] S documented in this encounter Visit Diagnoses Not on filedocumented in this encounter Administered Medications Inactive Administered Medications - up to 3 most recent administrations Medication Order MAR Action Action Date Dose Rate Site ceFAZolin (Ancef) 2 g vial attach to sodium chloride 0.9% 100 mL Mini-Bag Plus 2 g, Intravenous, ONCE, 1 dose, On Sobeida 05/04/22 at 0845, Administer over 30 Minutes, Day of Surgery (Day of Procedure), Indication for (Active or Suspected): Prophylaxis New Bag 05/04/2022 9:09 AM EDT 2 g dexAMETHasone (Decadron) injection Intravenous, PRN, Starting on Sobeida 05/04/22 at 0909, Until Sobeida 05/04/22 at 1201, Anesthesia Intra-op, Routine Given 05/04/2022 9:09 AM EDT 8 mg dexmedeTOMIDine (Precedex) (4 mcg/mL) bolus injection (Anesthsia) Intravenous, PRN, Starting on Sobeida 05/04/22 at 1049, Until Sobeida 05/04/22 at 1201, Anesthesia Intra-op, Routine Given 05/04/2022 10:55 AM EDT 8 mcg Given 05/04/2022 10:49 AM EDT 8 mcg ePHEDrine sulfate (5 mg/mL) multi-dose injection Intravenous, PRN, Starting on Sobeida 05/04/22 at 1008, Until Sobeida 05/04/22 at 1201, Anesthesia Intra-op, Routine Given 05/04/2022 10:08 AM EDT 5 mg fentaNYL (pf) (50 mcg/mL) multi-dose injection Intravenous, PRN, Starting on Sobeida 05/04/22 at 1101, Until Sobeida 05/04/22 at 1201, Anesthesia Intra-op, Routine Given 05/04/2022 11:26 AM EDT 25 mcg Given 05/04/2022 11:15 AM EDT 25 mcg Given 05/04/2022 11:01 AM EDT 50 mcg lactated ringers infusion 1,000 mL, at 100 mL/hr, Intravenous, CONTINUOUS, Starting on Sobeida 05/04/22 at 0815, Until Sobeida 05/04/22 at 1306, Day of Surgery (Day of Procedure) New Bag 05/04/2022 8:59 AM EDT ondansetron (pf) (Zofran) (2 mg/mL) injection Intravenous, PRN, Starting on Sobeida 05/04/22 at 0909, Until Sobeida 05/04/22 at 1201, Anesthesia Intra-op, Routine Given 05/04/2022 11:13 AM EDT 4 mg Given 05/04/2022 9:09 AM EDT 4 mg PHENYLephrine in NS (PF) (TYSHAWN-SYNEPHRINE) 0.8 mg/10 mL (80 mcg/mL) multi-dose injection Syrg Intravenous, PRN, Starting on Sobeida 05/04/22 at 1008, Until Sobeida 05/04/22 at 1201, Anesthesia Intra-op, Routine Given 05/04/2022 10:08 AM EDT 80 mcg propofoL (Diprivan) (10 mg/mL) infusion Intravenous, CONTINUOUS PRN, Starting on Sobeida 05/04/22 at 0906, Until Sobeida 05/04/22 at 1201, Anesthesia Intra-op, Routine Rate/Dose Change 05/04/2022 11:00 AM EDT 250 mcg/kg/min 132.75 mL/hr Rate/Dose Change 05/04/2022 10:07 AM EDT 180 mcg/kg/min 95 .58 mL/hr Rate/Dose Change 05/04/2022 10:01 AM EDT 200 mcg/kg/min 10 6.2 mL/hr propofoL (Diprivan) 10 mg/mL bolus injection (Anesthesia) Intravenous, PRN, Starting on Sobeida 05/04/22 at 0906, Until Sobeida 05/04/22 at 1201, Anesthesia Intra-op Given 05/04/2022 9:06 AM EDT 200 mg ROpivacaine (PF) (Naropin) 0.5% (5 mg/mL) injection Perineural, Starting on Sobeida 05/04/22 at 0840, Until Sobeida 05/04/22 at 0840, Anesthesia Intra-op, Routine Given 05/04/2022 8:40 AM EDT 30 mLs documented in this encounter Care Teams Laundrette Owner Relationship Specialty Start Date End Date Avery Caballero MD [address] [place] [address] PCP - General 04/15/14 documented as of this encounter
--- OUTSIDE RECORDS SUMMARY | 2024-04-08 18:08 | XMS_ITS | Encounter Summary ---
Author Organization Formerly [facility] Address [facility] [place] [address] Care Team Providers Care Spooling Operator Name Role Phone Avery Caballero MD Primary Care Provider [phone] Encounter Details Date Type Department Care Team (Latest Contact Info) Description 04/03/2022 3:30 PM EDT TH Visit (TeleHealth) Orthopaedics at [address] [id number] Yenifer Ellis MD [facility] [place] [address] Nonunion after arthrodesis Social History Tobacco Use [...] as of this encounter Progress Notes * Yenifer Ellis MD - 04/03/2022 3:30 PM EDT The patient and her and I discussed the fact that she still has lateral pain and swelling. She feels like this is significantly impairing her function and would like to proceed with surgical intervention. Her vitamin D did go from 30 to 34ng/dL with 12 weeks of prescription therapy replacement. At this point, she would like to proceed with surgical intervention. We will plan on doing a repeat 12 weeks of vitamin D and I did call that prescription in for her to her [employer]. We will also plan for operative intervention in the form of removing her subtalar screws and doing a revision of her CC joint fusion. I will also remove some of that redundant tissue and pulled back tissue over laterally to help decrease the mobility of her plantar fat pad. She is okay with doing a consent on day of surgery. documented in this encounter Plan of Treatment Not on file documented as of this encounter Visit Diagnoses Diagnosis Nonunion after arthrodesis documented in this encounter Care Teams Spooling Operator Relationship Specialty Start Date End Date Avery Caballero MD [address] [place] [address] PCP - General 04/15/14 documented as of this encounter
--- OUTSIDE RECORDS SUMMARY | 2024-04-08 18:08 | XMS_ITS | Encounter Summary ---
[place] [address] Care Team Providers Care Cardroom Plastic Card Grader Name Role Phone Avery Caballero MD Primary Care Provider [phone] Encounter Details Date Type Department Care Team (Late st Contact Info) Description 01/24/2016 Telephone [place] [phone] Eliseo Gaytan Social History Tobacco Use Types Packs/Day Years [...] encounter Miscellaneous Notes * Telephone Encounter - Eliseo Gaytan - 01/24/2016 1:16 PM EDT Left message for patient to call to schedule surgery. documented in this encounter Plan of Treatment Not on file documented as of this encounter Visit Diagnoses Not on filedocumented in this encounter Care Teams Cardroom Plastic Card Grader Relationship Specialty Start Date End Date Avery Caballero MD [address] [place] [address] PCP - General 04/15/14 documented as of this encounter
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
--- OUTSIDE RECORDS SUMMARY | 2024-04-08 18:08 | XMS_ITS | Encounter Summary ---
Author Organization [facility] [place] [address] Care Team Providers Care Lithographic Stripper Name Role Phone Avery Caballero MD Primary Care Provider [phone] Encounter Details Date Type Department Care Team (Latest Contact Info) Description 02/16/2017 - 02/16/2017 11:59 PM EDT Hospital En[place] [address] Julio C Amaro MD [facility] [place] [address] Pain Discharge Disposition: Home Social History Tobacco [...] (SUPER B COMPLEX ORAL) Take by mouth. Zctsexexkhfsc-Xu-Xgx n-Minerals Tab Take by mouth. Women's one [...] FILM LIBRARY STORAGE ONLY DX ANKLE Routine 02/16/2017 12:00 AM EDT Pain documented in this encounter Results * Film Library- Storage Only DX Ankle (02/16/2017 12:00 AM EDT) Narrative [facility] - 07/17/2017 12:52 PM EST This exam is for storage only and is auto-finalizing. Julio C Amaro MD IMG FILM LIBRARY ORD ERABLES Performing Organization Address City/State/[facility] Co de Phone Number [place], [place] documented in this encounter Visit Diagnoses Diagnosis Pain Generalized pain documented in this encounter Care Teams Lithographic Stripper Relationship Specialty Start Date End Date Avery Caballero MD [address] [place] [address] PCP - General 04/15/14 documented as of this encounter
--- OUTSIDE RECORDS SUMMARY | 2024-04-08 18:08 | XMS_ITS | Encounter Summary ---
[place] [address] Care Team Providers Care Mold Capper Helper Name Role Phone Avery Caballero MD Primary Care Provider [phone] Reason for Referral * Diagnostic Test (Routine) - Closed Specialty Diagnoses / Procedures Referred By Contac t Referred To Contact Radiology Diagnoses Right foot pain Status post ankle arthrodesis Vitamin D deficiency Procedures CT Ankle wo Contrast Right (Generic) Yenifer Ellis MD [facility] [place] [address] [facility] [place] [address] Referral ID Status Reason Start Date Expiration Date V isits Requested Visits Authorized [id number] Closed Specialty Service Requested 09/23/2021 03/23/2023 1 1 Reason for Visit * Diagnostic Test (Routine) - Closed Specialty Diagnoses / Procedures Referred By Contac t Referred To Contact Radiology Diagnoses Right foot pain Status post ankle arthrodesis Vitamin D deficiency Procedures CT Ankle wo Contrast Right (Generic) Yenifer Ellis MD [facility] [place] [address] [facility] [place] [address] Referral ID Status Reason Start Date Expiration Date V isits Requested Visits Authorized [id number] Closed Specialty Service Requested 09/23/2021 03/23/2023 1 1 Encounter Details Date Type Department Care Team (Latest Contact Info) Description 09/23/2021 1:36 PM EST - 09/23/2021 11:59 PM EST Hospital [place] [address] Yenifer Ellis MD [facility] [place] [address] Right foot pain; Status post ankle arthrodesis; Vitamin D deficiency Discharge Disposition: Home Social History Tobacco Use [...] Sig Dispensed Refills Start Date End Date traMADoL (Ultram) 50 mg Tablet Take 50 [...] (SUPER B COMPLEX ORAL) Take by mouth. Dkdoohdyrptkk-Ut-Thsh-M inerals Tab Take by mouth. Women's one a day gummy ergocalciferoL, vitamin D2, (vitamin D2) 50,000 unit Capsule Take 1 capsule by mouth once a week. 12 capsule 3 09/25/2021 04/03/2022 buPROPion XL (Wellbutrin XL) 150 mg Tablet Extended Release 24 hr 06/17/2021 06/21/2022 Venlafaxine 225 mg Tablet Extended Rel 24 hr daily. 4 04/24/2019 06/13/2022 documented as of this encounter Plan of Treatment Not on file documented as of this encounter Procedures Procedure Name Priority Date/Time Associated Diagnosis Comments CT ANKLE WO CONTRAST RIGHT Routine 09/23/2021 2:17 PM EST Right foot pain Status post ankle arthrodesis Vitamin D deficiency documented in this encounter Results * CT Ankle wo Contrast Right (Generic) (09/23/2021 2:17 PM EST) Anatomical Region Laterality Modality Ankle Right Computed Tomogra phy 09/23/2021 2:34 PM EST Impressions 09/23/2021 4:01 PM EST 1. ??Triple arthrodesis. 2. ??The posterior subtalar and calcaneocuboid joint spaces remain visible without bridging bone. There is bridging bone in less than half of the talonavicular joint space. 3. ??No hardware complications 4. ??Tibiotalar joint osteoarthropathy Thank you for letting us participate in the care of this patient. ??If you are a health care provider and have any questions regarding this report, please contact the number below. ??For patients who have questions please contact the health care taker that requested your imaging first. ? Electronically signed by: Taisha Dunbar MD, [facility] ([phone]), at 09/23/2021 4:01 PM Narrative 09/23/2021 4:01 PM EST EXAMINATION: CT ANKLE WO CONTRAST RIGHT (GENERIC) CLINICAL HISTORY: evaluate for hindfoot fusion, entered by ordering service TECHNIQUE: 0.63 mm non-contrast axial CT images of the RIGHT hindfoot were acquired. Sagittal and coronal reformats were created. COMPARISON: Radiographs, June 13, 2021 FINDINGS: Triple arthrodesis redemonstrated. JOINTS: Posterior subtalar joint-2 long screws traverse the subtalar joint. One of the long screw tip ends at the subchondral plate of the talar dome, series 10 image 84. No radiolucency surrounding the screws. The posterior subtalar joint space is markedly narrowed but remains visible, series 8 image 70. Calcaneocuboid joint-a single staple crosses the joint space. No radiolucency surrounding the hardware. The joint space remains open. There are subchondral cysts and subchondral sclerosis Talonavicular joint-2 seng cross the talonavicular joint. The medial inferior joint space is obliterated with bridging bone. The remaining joint space remains open. Tibiotalar joint-congruent ankle mortise. Multiple subchondral cysts at the medial talar dome represent any combinations of osteoarthropathy and or remote chondral injury. No displaced or detached osteochondral fragment seen. No ankle effusion. OSSEOUS STRUCTURES: No acute fracture. TENDONS: No displaced tendon seen. MUSCLES: Normal bulk. SOFT TISSUES: * ??No soft tissue mass. * ??Medial malleolus-a well-corticated nonunited bone fragment at tip of medial malleolus is related to remote injury. Procedure Note Taisha Dunbar MD - 09/23/2021 EXAMINATION: CT ANKLE WO CONTRAST RIGHT (GENERIC) CLINICAL HISTORY: evaluate for hindfoot fusion, entered by orderingservice TECHNIQUE: 0.63 mm non-contrast axial CT images of the RIGHT hindfootwere acquired. Sagittal and coronal reformats were created. COMPARISON: Radiographs, June 13, 2021 FINDINGS: Triple arthrodesis redemonstrated. JOINTS: Posterior subtalar joint-2 long screws traverse the subtalar joint. One ofthe long screw tip ends at the subchondral plate of the talar dome, series 10image 84. No radiolucency surrounding the screws. The posterior subtalar jointspace is markedly narrowed but remains visible, series 8 image 70. Calcaneocuboid joint-a single staple crosses the joint space. Noradiolucency surrounding the hardware. The joint space remains open. There aresubchondral cysts and subchondral sclerosis Talonavicular joint-2 seng cross the talonavicular joint. The medialinferior joint space is obliterated with bridging bone. The remaining joint spaceremains open. Tibiotalar joint-congruent ankle mortise. Multiple subchondral cysts atthe medial talar dome represent any combinations of osteoarthropathy and orremote chondral injury. No displaced or detached osteochondral fragment seen. Noankle effusion. OSSEOUS STRUCTURES: No acute fracture. TENDONS: No displaced tendon seen. MUSCLES: Normal bulk. SOFT TISSUES: * No soft tissue mass. * Medial malleolus-a well-corticated nonunited bone fragment at tip ofmedial malleolus is related to remote injury. IMPRESSION 1. Triple arthrodesis. 2. The posterior subtalar and calcaneocuboid joint spaces remainvisible without bridging bone. There is bridging bone in less than half of the talonavicular joint space. 3. No hardware complications 4. Tibiotalar joint osteoarthropathy Thank you for letting us participate in the care of this patient. If youare a health care provider and have any questions regarding this report,please contact the number below. For patients who have questions please contactthe health care taker that requested your imaging first. Electronically signed by: Taisha Dunbar MD, [facility]([phone]), at 09/23/2021 4:01 PM Yenifer Ellis MD IMG CT ORDERABLES documented in this encounter Visit Diagnoses Diagnosis Right foot pain Pain in limb Status post ankle arthrodesis Other postprocedural status Vitamin D deficiency Unspecified vitamin D deficiency documented in this encounter Care Teams Mold Capper Helper Relationship Specialty Start Date End Date Avery Caballero MD [address] [place] [address] PCP - General 04/15/14 documented as of this encounter
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
--- OUTSIDE RECORDS SUMMARY | 2024-04-08 18:08 | XMS_ITS | Encounter Summary ---
Author Organization [facility] [place] [address] Care Team Providers Care Field Service Engineer Name Role Phone Avery Caballero MD Primary Care Provider Reason for Visit * Consultation (Routine) - Closed Specialty Diagnoses / Procedures Referred By Kiarra banuelos Referred To Contact Dermatology Diagnoses Disorder of the skin and subcutaneous tissue, unspecified Linear Arranged Group of Brown Macules; New Patient-Notes Received Procedures Consult Avery Caballero MD [address] [place] [address] [facility] Dermatology [address] [place] [address] Referral ID Status Reason Start Date Expiration Date Visits Re quested Visits Authorized [id number] Closed 04/14/2021 04/14/2022 1 1 Encounter Details Date Type Department Care Team (Late st Contact Info) Description 06/20/2021 11:15 AM EDT Office Visit Dermatology at [facility] [address] [place] [address] Sally Coyle MD [facility] [address] [place] [address] Seborrheic keratosis Social History Tobacco Use Types [...] Notes * Sally Long MD - 06/20/2021 11:15 AM EDT Images from the original note were not included. DEPARTMENT OF DERMATOLOGY Medical Dermatology Clinic Provider: Sally Long MD Patient's preferred name Hannah Preferred contact method for results []Phone [x]myD-H []Letter Detailed phone message OK? Yes Are there any other people with whom we may discuss your care? Yes, Jim Past Medical History Date, location, treatment Melanoma No Dysplastic nevi No SCC No BCC No AKs No UV Exposure & Protection + history of tanning bed use + history of blistering sunburn Other relevant past medical history Cold sores Family History Details Melanoma No NMSC Sister & daughter-unknown type. Other relevant family history * Social History Occupation: Disabled Hobbies: Other: Pre-Procedure Screening Details Allergy to lidocaine, epinephrine, Dermabond, chlorhexidine, or adhesives Adhesives and latex Bleeding disorder or blood thinners no Pacemaker, defibrillator, deep brain stimulator, cochlear implant no History of Present Illness: Hannah Ling is a 56 y.o. Patient is new and self- referred to the clinic for a spot check with the following: -bumps on the right side of eye, present for 5 years, no previous treatment. Can be tender when bumped. Medications: Reviewed in eD-H Allergies: Reviewed in eD-H Skin Examination: Focused skin examination of the face was normal with the exception of the findings below. Assessment/Plan #. Seborrheic keratoses Scattered yellow to schilling stuck on papules 3-6 mm in size on R lateral orbital rim -benign nature of lesions discussed -patient reassured. - pt opts for cosmetic treatment today Other: ??? N/A RTC: PRN []Note routed to medical unit secretary []Recall placed in scheduling system []Appointment scheduled at checkout Scribe attestation: Christina Fernandez LPN has performed the documentation for this encounter in the presence of and acting as a scribe for Sally Long MD. I performed the above scribed service and agree with the accuracy of the documentation in this encounter. Reviewed and signed by: Sally Long MD Dermatology [facility] documented in this encounter Plan of Treatment Not on file documented as of this encounter Visit Diagnoses Diagnosis Seborrheic keratosis Other seborrheic keratosis documented in this encounter Care Teams Field Service Engineer Relationship Specialty Start Date End Date Avery Caballero MD [address] [place] [address] PCP - General 04/15/14 documented as of this encounter
--- OUTSIDE RECORDS SUMMARY | 2024-04-08 18:08 | XMS_ITS | Encounter Summary ---
Author Organization [facility] [place] [address] Care Team Providers Care Extension Worker Name Role Phone Avery Caballero MD Primary Care Provider [phone] Encounter Details Date Type Department Care Team (Latest Contact Info) Description 05/02/2017 - 05/02/2017 11:59 PM EDT Hospital Encounter [place] [address] Julio C Amaro MD [facility] [address] ORTHOPAED[place] [address] Discharge Disposition: Home Social History Tobacco Use [...] (SUPER B COMPLEX ORAL) Take by mouth. Myqwdlzaaunch-Wo-Vde n-Minerals Tab Take by mouth. Women's one [...] Diagnosis Comments FILM LIBRARY STORAGE ONLY MR UPPER EXTREMITY Routine 05/02/2017 12:00 AM EDT documented in this encounter Results * Film Library- Storage Only MR Upper Extremity (05/02/2017 12:00 AM EDT) Narrative [facility] - 08/24/2017 4:17 PM EST This exam is for storage only and is auto-finalizing. Julio C Amaro MD IMG FILM LIBRARY ORD ERABLES Performing Organization Address City/State/[facility] Co de Phone Number [place], [place] documented in this encounter Visit Diagnoses Not on filedocumented in this encounter Care Teams Extension Worker Relationship Specialty Start Date End Date Avery Caballero MD [address] [place] [address] PCP - General 04/15/14 documented as of this encounter
--- OUTSIDE RECORDS SUMMARY | 2024-04-08 18:08 | XMS_ITS | Encounter Summary ---
Author Organization [facility] [place] [address] Care Team Providers Care Siebel Administrator Name Role Phone Avery Caballero MD Primary Care Provider [phone] Encounter Details Date Type Department Care Team (Late st Contact Info) Description 03/28/2021 Ancillary Procedure [place] [address] Yenifer Ellis MD [facility] DR ORTHOPAEDIC [place] [address] Social History Tobacco Use Types Packs/Day Years [...] Associated Diagnosis Comments FILM LIBRARY STORAGE ONLY CT LOWER EXTREMITY Routine 03/28/2021 12:00 AM EDT documented in this encounter Results * Film Library- Storage Only CT Lower Extremity (03/28/2021 12:00 AM EDT) Narrative [facility] - 07/21/2021 3:24 PM EST This exam is auto-finalizing. It's purpose is for storage only. Yenifer Ellis MD IM FILM LIBRARY ORD ERABLES [place], [place] documented in this encounter Visit Diagnoses Not on filedocumented in this encounter Care Teams Siebel Administrator Relationship Specialty Start Date End Date Avery Caballero MD [address] [place] [address] PCP - General 04/15/14 documented as of this encounter
--- OUTSIDE RECORDS SUMMARY | 2024-04-08 18:08 | XMS_ITS | Encounter Summary ---
Author Organization [facility] [place] [address] Care Team Providers Care Sanitation Truck Driver Name Role Phone Avery Caballero MD Primary Care Provider [phone] Encounter Details Date Type Department Care Team (Late st Contact Info) Description 11/15/2020 Ancillary Procedure [place] [address] Yenifer Ellis MD [facility] [place] [address] Social History Tobacco Use Types Packs/Day Years [...] FILM LIBRARY STORAGE ONLY DX FOOT Routine 11/15/2020 12:00 AM EDT documented in this encounter Results * Film Library- Storage Only DX Foot (11/15/2020 12:00 AM EDT) Narrative [facility] - 07/21/2021 3:16 PM EST This exam is auto-finalizing. It's purpose is for storage only. Yenifer Ellis MD IM FILM LIBRARY ORD ERABLES [place], [place] documented in this encounter Visit Diagnoses Not on filedocumented in this encounter Care Teams Sanitation Truck Driver Relationship Specialty Start Date End Date Avery Caballero MD [address] [place] [address] PCP - General 04/15/14 documented as of this encounter
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
--- OUTSIDE RECORDS SUMMARY | 2024-04-08 18:08 | XMS_ITS | Encounter Summary ---
Author Organization [facility] [place] [address] Care Team Providers Care Adult Secondary Education Instructor Name Role Phone Avery Caballero MD Primary Care Provider [phone] Encounter Details Date Type Department Care Team (Late st Contact Info) Description 09/08/2020 Ancillary Procedure [place] [address] Yenifer Ellis MD [facility] [place] [address] Social History Tobacco Use Types Packs/Day Years [...] FILM LIBRARY STORAGE ONLY DX FOOT Routine 09/08/2020 12:00 AM EST documented in this encounter Results * Film Library- Storage Only DX Foot (09/08/2020 12:00 AM EST) Narrative [facility] - 07/21/2021 3:10 PM EST This exam is auto-finalizing. It's purpose is for storage only. Yenifer Ellis MD IM FILM LIBRARY ORD ERABLES [place], [place] documented in this encounter Visit Diagnoses Not on filedocumented in this encounter Care Teams Adult Secondary Education Instructor Relationship Specialty Start Date End Date Avery Caballero MD [address] [place] [address] PCP - General 04/15/14 documented as of this encounter
--- OUTSIDE RECORDS SUMMARY | 2024-04-08 18:08 | XMS_ITS | Encounter Summary ---
[place] [address] Care Team Providers Care Mystery Shopper Name Role Phone Avery Caballero MD Primary Care Provider [phone] Reason for Visit * Reason Onset Date Comments Appointment 03/07/2022 Encounter Details Date Type Department Care Team (Late st Contact Info) Description 03/07/2022 Telephone [place] [address] Yenifer Ellis MD [facility] [place] [address] Appointment Social History Tobacco Use Types Packs/Day [...] encounter Miscellaneous Notes * Telephone Encounter - Bret Barnard - 03/10/2022 3:12 PM EDT Patient scheduled. * Telephone Encounter - Isis Coronel - 03/09/2022 8:44 AM EDT LM #2 to schedule a TOV with Dr. Ellis. NXR PERSISTENT PAIN, S/P TRIPLE ARTHODESIS, R FOOT HX OF MULTIPLE SURGERIES SINCE 2017 * Telephone Encounter - Marisa Sweet - 03/07/2022 3:49 PM EDT Images from the original note were not included. Lm#1 to schedule patient for a televisit per staff message below regarding PERSISTENT PAIN, S/P TRIPLE ARTHODESIS, RIGHT FOOT HX OF MULTIPLE SURGERIES SINCE 2016 Yenifer Ellis MD [facility] [place]; P [facility] Ortho Or Electrochemist Can you please set her up for a televisit? documented in this encounter Plan of Treatment Not on file documented as of this encounter Visit Diagnoses Not on filedocumented in this encounter Care Teams Mystery Shopper Relationship Specialty Start Date End Date Avery Caballero MD [address] [place] [address] PCP - General 04/15/14 documented as of this encounter
--- OUTSIDE RECORDS SUMMARY | 2024-04-08 18:09 | XMS_ITS | Encounter Summary ---
Author Organization [facility] [place] [address] Care Team Providers Care Naval Aircrewman Mechanical Name Role Phone Avery Caballero MD Primary Care Provider [phone] Encounter Details Date Type Department Care Team (Late st Contact Info) Description 10/19/2014 Orders Only Gastroenterology at [facility] [place] [address] Yesenia Ac APRN [facility] [place] [address] Social History Tobacco Use Types Packs/Day Years [...] Diagnosis Comments FILM LIBRARY STORAGE ONLY CT ABDOMEN AND PELVIS Routine 10/19/2014 7:55 AM EST documented in this encounter Results * Film Library- Storage only CT abdomen & pelvis (10/19/2014 7:55 AM EST) Anatomical Region Laterality Modality Abdomen, Pelvis Other 10/19/2014 7:55 AM EST Narrative 10/20/2014 8:00 AM EST This is a Non-reportable exam Procedure Note [place], UNSIGNED REPORT - 10/20/2014 This is a Non-reportable exam Yesenia Ac APRN [facility] FILM LIBRARY ORD ERABLES documented in this encounter Visit Diagnoses Not on filedocumented in this encounter Care Teams [employer] Mechanical Relationship Specialty Start Date End Date Avery Caballero MD [address] [place] [address] PCP - General 04/15/14 documented as of this encounter
--- OUTSIDE RECORDS SUMMARY | 2024-04-08 18:09 | XMS_ITS | Encounter Summary ---
[facility] Organization [facility] [place] [address] Care Team Providers Care Machine Stapler Name Role Phone Avery Caballero MD Primary Care Provider [phone] Encounter Details Date Type Department Care Team (Latest Contact Info) Description 10/06/2014 3:00 PM EST - 10/06/2014 6:50 PM EST Hospital [place] [address] Bassem Allred MD [facility] [place] [address] Discharge Disposition: Home Social History Tobacco Use [...] Reading Time Taken Comments Blood Pressure 120/80 10/06/2014 5:12 PM EST Pulse 82 10/06/2014 5:12 PM EST Temperature - - Respiratory Rate 16 10/06/2014 5:12 PM EST Oxygen Saturation 100% 10/06/2014 5:12 PM EST Inhaled Oxygen Concentration - - Weight - - Height - - Body Mass Index - - documented in this encounter Discharge Instructions * Discharge Instructions* Jacinda Woods RN - 10/06/2014 5:15 PM EST UPPER GI ENDOSCOPY WHAT TO EXPECT AFTER THE PROCEDURE Medications You may have a mild sore throat. Ice chips, popsicles, over the counter throat lozenges or spray may help numb your throat. This procedure should not cause a fever. Call your healthcare provider or seek immediate medical attention if: You have trouble swallowing. You have belly pain. Your stools are black or tarlike or have streaks of blood. You are sick to your stomach or cannot keep fluids down. Watch closely for changes in your health, and be sure to contact your doctor IF Your throat still hurts after a day or two You do not get better as expected. Colonoscopy and polyp removal What to expect after the procedure You may feel a little more gassy or bloated than usual, this is normal. You should expect the return of normal bowel function in the next 2 to 3 days. Because some polyps were removed, you may see a little blood with the next few bowel movements, this should be a small amount ( less than a few tablespoons) and will resolve on it's own. ACTIVITY Because of the sedation that you received Your judgement and reaction time are effected ?? Go home and rest for the remainder for the day. You may resume your normal activities tomorrow ?? Change from one position to the next slowly because you may lose your balance unexpectedly. ?? Be careful on stairs, as you may be unsteady. FOR THE NEXT 24 HRS ?? DO NOT DRIVE OR OPERATE MACHINERY ?? DO NOT DRINK ALCOHOLIC BEVERAGES ?? DO NOT SIGN LEGAL DOCUMENTS ?? If you are a smoker: DO NOT SMOKE WHILE YOU ARE ALONE Diet ?? Start by eating small portions of foods that ordinarily will not upset your stomach, avoid gas producing foods for the next few days. ?? Be gentle with what you choose to start with ?? A soft diet may be helpful for the next 3 days as this may help to keep your stools soft. ?? Drink plenty of fluids ( unless your doctor has told you not to). Medicines Avoid medicines that influence the way your blood clots for the next week. These would include anti-inflammatory medicine, such as ibuprofen( Advil, Motrin) and naproxen ( Aleve). If you need something for discomfort, Tylenol (Acetaminophen) is safe if used as directed. Your Doctor will tell you when to restart your prescribed blood thinners The IV site-- slight tenderness, or redness is normal, you can use warm compresses if you get concerned. If the tenderness +/or redness increases or foul drainage and a red streak occurs, please contact your PCP immediately. When should you call for help? Call 911 anytime you think you may need emergency care. For example If you pass out (loss of consciousness) If you pass maroon or bloody stools If you have severe belly pain Call your healthcare provider or seek immediate medical care if: Your stools are black or tar like Your stools have streaks of blood that is more pronounced with each BM You have belly pain, or your belly is swollen and firm You vomit You have a fever You are very dizzy Watch closely for changes in your health, and be sure to contact your doctor if you have any problems. Your Doctor will let you know when you will need your next colonoscopy. The results of your test and your risk for colorectal cancer will help your doctor decide how often you need to be checked. [facility] [phone] 8a-5p Same Day Endo [phone] 7a-8p Otherwise contact [phone] and ask to speak to the territory sales representative solution mixer Follow up care is a tian part of your treatment and safety. Be sure to make and go to all appointments, and call your doctor if you are having problems. Discharge instructions reviewed with patient who expresses understanding documented in this encounter Medications at Time of Discharge Medication Sig Dispensed Refills Start Date End Date senna (SENOKOT) 8.6 mg Tablet Take 1 tablet by mouth 2 times daily. montelukast (SINGULAIR) 10 mg tablet Take 10 mg by mouth nightly. fluticasone (FLONASE) 50 mcg/actuation nasal spray 1 spray daily. Cholecalciferol, Vitamin D3, 2,000 unit Cap Take by mouth. FERROUS FUMARATE/VIT BCOMP&C (SUPER B COMPLEX ORAL) Take by mouth. Ntunudnczwdqx-Ga-Gsjw- Minerals Tab Take by mouth. Women's one a day gummy polyethylene glycol (MIRALAX) 17 gram/dose PowderIndications:Cons tipation, unspecified constipation type Take 17 g by mouth daily for 30 days. 510 g 6 09/30/2014 10/30/2014 acetaminophen (TYLENOL) 500 mg Tablet Take 2 tablets by mouth every 6 hours as needed for Pain (for MODERATE pain). 06/22/2014 11/25/2014 docusate sodium (COLACE) 100 mg Capsule Take 1 capsule by mouth 2 times daily. 06/22/2014 10/23/2014 ursodiol (ACTIGALL) 300 mg CapsuleIndications:cho lelithiasis prevention Take 300 mg by mouth 2 times daily. Indications: Cholelithiasis Prevention 04/28/2019 omeprazole (PRILOSEC) 40 mg capsule Take 40 mg by mouth daily. 04/28/2019 fluticasone-salmeterol (ADVAIR DISKUS) 250-50 mcg/dose diskus inhaler Inhale 1 puff into the lungs every 12 hours. 09/23/2021 documented as of this encounter Progress Notes * Rafat Read RN - 10/01/2014 2:48 PM EST ENDOSCOPY PATIENT HISTORY Name: HANNAH WONG : 1965 Age: 49 y.o. [address]: [address] [place] [id number] (home) Mobile: No relevant phone numbers on file. Referring Provider: Yesenia Ac Referral Procedure: Colonoscopy Allergies: Allergies Allergen Reactions ??? Latex Other (See Comments) Localized blister/swelling/open skin ??? Meclizine Other (See Comments) unresponsive ??? Tegaderm [Transparent Dressings] Rash Raw skin instantly and hives Problem list: Patient Active Problem List Diagnosis Code ??? Abdominal pannus 278.1 ??? Breast hypertrophy 611.1 ??? 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 Other specified aftercare following surgery V58.49 Past Medical History: Past Medical History Diagnosis Date ??? Allergy ??? Breathing problem ??? Musculoskeletal disease ??? ENT disease ??? Eye problems ??? Digestive problems ??? GERD (gastroesophageal reflux disease) Past Surgical History: Past Surgical History Procedure Laterality Date ??? Cranio/maxillofacial surg unlisted ??? Throat surgery procedure unlisted ??? Genital surg proc, female unlisted ??? Musculoskeletal surgery unlisted ??? Gastroenterology procedure ??? Excise excess skin tissue, abdomen, add-on 06/19/2014 ABDOMINOPLASTY EXC,W/ UMBILICAL TRANSPOSITION, FASCIAL PLICATION performed by Hiram Barrow MD at [facility] MAIN OR ??? Excise excess skin tissue, thigh 06/19/2014 EXCISION EXCESSIVE SKIN AND TISSUE-THIGH performed by Hiram Barrow MD at [facility] MAIN OR ??? Suct jamin lipectomy, low extrem 06/19/2014 SUCTION ASSISTED LIPECTOMY, LOWER EXTREMITY-HIRAL performed by Hiram Barrow MD at [facility] MAIN OR ??? Appendectomy Medications: Prior to Admission medications Medication Sig Start Date End Date Taking? Authorizing Provider polyethylene glycol-electrolytes (NULYTELY) 420 gram Recon Soln Take 4,000 mLs by mouth once for 1 dose. 09/30/14 09/30/14 Yesenia Ac APRN polyethylene glycol (MIRALAX) 17 gram/dose Powder Take 17 g by mouth daily for 30 days. 09/30/14 10/30/14 Yesenia Ac APRN senna (SENOKOT) 8.6 mg Tablet Take 1 tablet by mouth daily. Provider, Historical acetaminophen (TYLENOL) 500 mg Tablet Take 2 tablets by mouth every 6 hours as needed for Pain (forMODERATE pain). 06/22/14 Raegan Mosquera PA docusate sodium (COLACE) 100 mg Capsule Take 1 capsule by mouth 2 times daily. 06/22/14 Raegan Mosquera PA ursodiol (ACTIGALL) 300 mg Capsule Take 300 mg by mouth 2 times daily. Indications: Cholelithiasis Prevention Provider, Historical omeprazole (PRILOSEC) 40 mg capsule Take 40 mg by mouth daily. Provider, Historical montelukast (SINGULAIR) 10 mg tablet Take 10 mg by mouth nightly. Provider, Historical fluticasone (FLONASE) 50 mcg/actuation nasal spray 1 spray daily. Provider, Historical fluticasone-salmeterol (ADVAIR DISKUS) 250-50 mcg/dose diskus inhaler Inhale 1 puff into the lungs every 12 hours. Provider, Historical Cholecalciferol, Vitamin D3, 2,000 unit Cap Take by mouth. Provider, Historical FERROUS FUMARATE/VIT BCOMP&C (SUPER B COMPLEX ORAL) Take by mouth. Provider, Historical Wlbwvwbvrxnek-Rm-Shpx-Minerals Tab Take by mouth. Women's one a day gummy Provider, Historical documented in this encounter H&P Notes * Bassem Allred MD - 10/06/2014 3:27 PM EST Gastroenterology and Hepatology Pre-Procedure History and Physical Exam Procedure: Colonoscopy: Indication: ab pain, ascedning colon thickening on CT scan Patient Active Problem List Diagnosis Code ??? Abdominal pannus 278.1 ??? Breast hypertrophy 611.1 ??? 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 Other specified aftercare following surgery V58.49 EXAM: HEENT: Airway examined, oropharynx clear Mallampati Score: II (soft palate, uvula, fauces visible) LUNGS: Clear to auscultation HEART: Regular rate and rhythm, normal S1, S2 ABDOMEN: Normal bowel sounds, soft, non tender, non distended, A/P Proceed with the planned endoscopic procedure. ASA 2 - Patient with mild systemic disease with no functional limitations Sedation Plan: moderate (conscious sedation) Risks and benefits of the procedure explained to the patient. Consent signed. documented in this encounter Plan of Treatment Not on file documented as of this encounter Procedures Procedure Name Priority Date/Time Associated Diagnosis Comments SURGICAL PATHOLOGY REPORT Routine 10/06/2014 4:58 PM EST SPECIMEN TO PATHOLOGY Routine 10/06/2014 4:58 PM EST SPECIMEN TO PATHOLOGY Routine 10/06/2014 4:58 PM EST EGD WITH BIOPSY (WRVU 2.39) 10/06/2014 4:[address] scan Abdominal pain, RUQ (right upper quadrant) Constipation, unspecified constipation type COLONOSCOPY FLEXIBLE, WITH BX (WRVU 3.56) 10/06/2014 4:[address] scan Abdominal pain, RUQ (right upper quadrant) Constipation, unspecified constipation type UPPER GI ENDOSCOPY Routine 10/06/2014 3: 38 PM EST COLONOSCOPY Routine 10/06/2014 3:37 PM EST documented in this encounter Results * Surgical Pathology Report (10/06/2014 4:58 PM EST) Final Diagnosis ? [facility] ? Provider: ?? BASSEM ALLRED ?Pt. Name: ?? MARVIN HANNAH Lane ? Acc #: ?[id number] ?Pt. ? Col Date: ?? 10/06/2014 ?/Sex: ?1965,(49 years),Female ? Rec Date: ?? 10/06/2014 ?LOC: ?4T ? SURGICAL PATHOLOGY ? ---Pathologic Diagnosis--- ? A - Duodenum, biopsy: ? Duodenal mucosa, negative for diagnostic abnormality. ? B - Normal colon, biopsy: ? Colonic mucosa, negative for diagnostic abnormality. ? CR-0, CR-PX ? 10/08/14 ? BJM ? 10/08/14 Verified by: ? Chniedu Siegel MD ? Pathologist ? (Electronic Signature) ? The attending pathologist whose signature appears on this report has ? reviewed all diagnostic slides and has edited the gross and/or ? microscopic portion of the report in rendering the final pathologic ? diagnosis. ? ---Gross Description--- ? A - Labeled/Fixativ e: Biopsy of duodenum, formalin. ? Quantity/Size: Five, 0.3-0.4 cm. ? Tissue Description: Soft, schilling-pink tissue. ? Sections/Proces sing: (T1) ? B - Labeled/Fixativ e: Biopsy of normal appearing colon, formalin. ? Quantity/Size: Four, 0.4-0.6 cm. ? Tissue Description: Soft, yellow-schilling tissue. ? Sections/Proces sing: (T1) ??ejr ? ---Clinical Information--- ? Specimen Submitted: ? A - Bx of duodenum ? B - Bx of normal appearing colon ? Clinical History: ? Patient with abdominal pain and anemia ? Clinical Diagnosis: ? Same 10/08/2014 2:58 PM EST [facility] GI Biopsy 10/06/2014 4:58 PM EST 10/06/2014 4:58 PM EST GI Biopsy 10/06/2014 4:58 PM EST 10/06/2014 4:58 PM EST Bassem Allred MD PATHOLOGY/CYTOLOGY O LOW Performing Organization Address [facility]/ZIP Co de Phone Number [facility] [place] [address] * Specimen to Pathology (surgical or derm) (10/06/2014 4:58 PM EST) AP Specimen 10/06/2014 4:58 PM EST 10/06/2014 4:58 PM EST Narrative [facility] - 10/06/2014 4:58 PM EST Specimen requisition ordered. ??Separate Pathology report to follow Bassem Allred MD PATHOLOGY[facility]CYTOLOGY O LOW [facility] * Specimen to Pathology (surgical or derm) (10/06/2014 4:58 PM EST) AP Specimen 10/06/2014 4:58 PM EST 10/06/2014 4:58 PM EST Narrative [facility] - 10/06/2014 4:58 PM EST Specimen requisition ordered. ??Separate Pathology report to follow Bassem Allred MD PATHOLOGY/CYTOLOGY O LOW [facility] * UPPER GI ENDOSCOPY (10/06/2014 3:38 PM EST) UPPER GI ENDOSCOPY [facility] Patient Name: Hannah Wong ? Procedure Date: 10/06/2014 3:38 PM ? N: [id number] ? Date of : 1965 ? Age: 49 ? Order #: [id number] ? Procedure: ? Upper GI endoscopy Indications: ? Generalized abdominal pain, Anemia Providers: ? Bassem Allred MD, Guera Salmeron, ? RN, Murphy Eldridge, Pneumatic Systems Operator Referring MD: ?Avery Caballero MD, Yesenia Castillo. ? Osorio, CONTINUITY EDITOR Medicines: ? Midazolam 1.5 mg IV, Fentanyl 75 ? micrograms IV Complications: ? No immediate [...] and ? adverse medication reactions. The ? Endoscope was introduced through the ? mouth, and advanced to the third part ? of duodenum. The patient tolerated ? the procedure well. The upper GI ? endoscopy was accomplished without ? difficulty. The patient tolerated the ? procedure well. ? Findings: ? The examined esophagus was normal. ? A medium-sized hiatus hernia was present from 38-32 ? cm. ? Normal Z line at 32 cm ? Stomach: Evidence of prior gastric Sleeve procedure ? with at narrowed gastric body ? The examined duodenum was normal. Biopsies were taken ? with a cold forceps for evaluation of celiac disease. ? Impression: ?- Normal esophagus. ? - Hiatus hernia. ? S/p gastric sleeve ? - Normal examined duodenum. Biopsied. Recommendation: ?- Await pathology results. ? __ Bassem Allred MD 10/06/2014 4:57 PM This report has been signed electronically. Number of Addenda: 0 Note Initiated On: 10/06/2014 3:38 PM PROVATION 10/06/2014 3:38 PM EST Avery Caballero MD GENERAL SURGICAL ORD ERABLES [facility]ATION * COLONOSCOPY (10/06/2014 3:37 PM EST) COLONOSCOPY [facility] Patient Name: Hannah Wong ? Procedure Date: 10/06/2014 3:37 PM ? Date of : 1965 ? Age: 49 ? Order #: [id number] ? Procedure: ? Colonoscopy Indications: ? Abdominal pain, thickened ascending ? colon on CT scan, anemia Providers: ? Bassem Allred MD, Guera Salmeron, ? RN, Murphy Eldridge, Pneumatic Systems Operator Referring MD: ?Avery Caballero MD, Yesenia Zuniga ? CHRISTINE Ac, Hiram Barrow MD Medicines: ? Midazolam 6 [...] ?- Await pathology results. ? _ Bassem Allred MD 10/06/2014 4:53 PM This report has been signed electronically. Number of Addenda: 0 Note Initiated On: 10/06/2014 3:37 PM PROVATION 10/06/2014 3:37 PM EST Avery Caballero MD GENERAL SURGICAL ORD ERABLES [employer]OVATION documented in this encounter Visit Diagnoses Not on filedocumented in this encounter Administered Medications Inactive Administered Medications - up to 3 most recent administrations Medication Order MAR Action Action Date Dose Rate Site lactated ringers infusion 100 mL/hr, Intravenous, CONTINUOUS, Starting on 10/06/14 at 1545, Until 10/06/14 at 1806, Endoscopy (Day of Procedure) New Bag 10/06/2014 3:43 PM EST 100 mL/hr 100 mL/hr documented in this encounter Active and Recently Administered Medications Times are shown in EST. Continuous Medication Order 10/04/2014 10/05/2014 10/06/2014 lactated ringers infusion (CANCELED) 100 mL/hr, Intravenous, CONTINUOUS, Starting on 10/06/14 at 1545, Until Tue 15 at 1806, Endoscopy (Day of Procedure) 1543 (New Bag - Prov ider: Germain Rashid RN) PRN Medication Order 10/04/2014 10/05/2014 10/06/2014 fentaNYL 50 mcg/mL multi-dose injection (CANCELED) ONCE PRN, Starting on 10/06/14 at 1609, Until Tue 15 at 1806, Intra-Operative (Intra-Procedure), Routine 1609 (Given - Provid er: Guera Salmeron RN)1612 (Given - Provider: Guera Salmeron RN)1620 (Given - Provider: Guera Salmeron RN)1626 (Given - Provider: Guera Salmeron RN)1644 (Given - Provider: Guera Salmeron RN - Comment: re-egd)1647 (Given - Provider: Guera Salmeron RN) midazolam (PF) (VERSED) 1 mg/mL multi-dose injection (CANCELED) ONCE PRN, Starting on Sun10/06/14 at 1609, Until Sun10/06/14 at 1806, Intra-Operative (Intra-Procedure), Routine 1609 (Given - Provid er: Guera Salmeron RN)1612 (Given - Provider: Guera Salmeron RN)1616 (Given - Provider: Guera Salmeron RN)1626 (Given - Provider: Guera Salmeron RN)1630 (Given - Provider: Guera Salmeron, RAFAL)1644 (Given - Provider: Guera Salmeron RN - Comment: pre-egd)1647 (Given - Provider: Guera Salmeron RN) documented in this encounter Care Teams Machine Stapler Relationship Specialty Start Date End Date Avery Caballero MD [address] [place] [address] PCP - General 04/15/14 documented as of this encounter
--- OUTSIDE RECORDS SUMMARY | 2024-04-08 18:09 | XMS_ITS | Encounter Summary ---
[place] [address] Care Team Providers Care Hearing Aid Repair Technician Name Role Phone Avery Caballero MD Primary Care Provider [phone] Encounter Details Date Type Department Care Team (Latest Contact Info) Description 08/06/2014 10:00 AM EST Ancillary Appointment [place] [address] Benji Eugnee [place] Lipodystrophy; Other specified aftercare following surgery; Abdominal pannus Social History Tobacco Use Types Packs/Day Years [...] Procedure Name Priority Date/Time Associated Diagnosis Comments DUPLEX FOR DVT BILAT LEGS STAT 08/06/2014 9:22 AM EST Lipodystrophy Other specified aftercare following surgery Abdominal pannus documented in this encounter Results * Duplex Study for DVT, Bilat legs (08/06/2014 9:22 AM EST) VB Text Report Department: Vascular Surgery Lab Patient: [id number] (HANNAH WONG) CPT Code: 55538 ICD-9: 729.81 Referring Physician: HIRAM NASCIMENTO Indication: ??Bilateral leg swelling s/p ??abdominal plasty and thigh plasty. ICD9 Diagnosis Code: 729.81 RIGHT: Patent common femoral vein and popliteal vein with spontaneous, respirophasic Doppler waveforms that respond normally to augmentation maneuvers. The common femoral vein, saphenofemoral junction, femoral vein through the thigh and popliteal vein are fully compressible. Patent posterior tibial and peroneal veins with no evidence of thrombus. LEFT: Patent common femoral vein and popliteal vein with spontaneous, respirophasic Doppler waveforms that respond normally to augmentation maneuvers. The common femoral vein, saphenofemoral junction, femoral vein through the thigh and popliteal vein are fully compressible. Patent posterior tibial and peroneal veins with no evidence of thrombus. Interpretation: RIGHT: ??No evidence of lower extremity deep venous thrombosis. LEFT: ??No evidence of lower extremity deep venous thrombosis. Comparison: ??No previous study in our vascular lab database for comparison. Electronically Signed by: BARBARA PATTERSON on 2014-08-09 09:21:05 AM VAS[facility] VB Text Report End of Report [facility] 08/06/2014 9:22 AM EST Hiram Nascimento MD VASCULAR ORDERABLES Performing Organization Address City/State/[facility] [[email or web address]] Co de Phone Number [email or web address] documented in this encounter Visit Diagnoses Diagnosis Lipodystrophy Other specified aftercare following surgery Abdominal pannus Localized adiposity documented in this encounter Care Teams Hearing Aid Repair Technician Relationship Specialty Start Date End Date Avery Caballero MD [address] [place] [id number] PCP - General 04/15/14 documented as of this encounter
--- OUTSIDE RECORDS SUMMARY | 2024-04-08 18:09 | XMS_ITS | Encounter Summary ---
Author Organization [facility] [place] [address] Care Team Providers Care Undercollar Maker Name Role Phone Avery Caballero MD Primary Care Provider [phone] Encounter Details Date Type Department Care Team (Late st Contact Info) Description 10/06/2014 4:00 PM EST - 10/06/2014 5:00 PM EST Surgery [place] [address] Bassem Allred MD [facility] [place] [address] COLONOSCOPY FLEXIBLE, WITH BX (WRVU 3.56) Social History Tobacco Use Types Packs/Day Years [...] encounter Discharge Instructions * Discharge Instructions* Jacinda Woods, RN - 10/06/2014 5:15 PM EST UPPER [...] you need to be checked. Sunday-Sunday Clinic [phone] 8a-5p Same Day Endo [phone] 7a-8p Otherwise contact [phone] and ask to speak to the forcer maker assistant construction superintendent Follow up care is a tian part [...] (SUPER B COMPLEX ORAL) Take by mouth. Kraisztvsbbhq-Xx-Vfio- Minerals Tab Take by mouth. Women's one [...] WONG : 1965 Age: 49 y.o. Address: [address] [place] [phone] (home) Mobile: No relevant phone numbers on [...] PLICATION performed by Hiram Barrow MD at [facility] OR ??? Excise excess skin tissue, thigh 06/19/2014 EXCISION EXCESSIVE SKIN AND TISSUE-THIGH performed by Hiram Barrow MD at [facility] OR ??? Suct jamin lipectomy, low extrem 06/19/2014 SUCTION ASSISTED LIPECTOMY, LOWER EXTREMITY-HIRAL performed by Hiram Barrow MD at [facility] OR ??? Appendectomy Medications: Prior to [...] COMPLEX ORAL) Take by mouth. Provider, Historical Enornrfufpqsk-Ak-Zclh-Minerals Tab Take by mouth. Women's one a [...] (10/06/2014 4:58 PM EST) Final Diagnosis ? [facility] ? Provider: ?? BASSEM ALLRED ?Pt. Name: ?? HANNAH WONG ? Acc #: ?[id number] ?Pt. ? Col Date: ?? 10/06/2014 ?/Sex: ?1965,(49 years),Female ? Rec Date: ?? 10/06/2014 ?LOC: ?4T ? SURGICAL PATHOLOGY ? ---Pathologic Diagnosis--- ? A - Duodenum, biopsy: ? Duodenal mucosa, negative for diagnostic abnormality. ? B - Normal colon, biopsy: ? Colonic mucosa, negative for diagnostic abnormality. ? CR-0, CR-PX ? 10/08/14 ? [facility] ? 10/08/14 Verified by: ? Chinedu Siegel MD ? Pathologist ? (Electronic Signature) [...] Diagnosis: ? Same 10/08/2014 2:58 PM EST [facility] GI Biopsy 10/06/2014 4:58 PM EST 10/06/2014 4:58 PM EST GI Biopsy 10/06/2014 4:58 PM EST 10/06/2014 4:58 PM EST Bassem Allred MD PATHOLOGY/CYTOLOGY Svetlana KELSEY Performing Organization Address [facility] Co de Phone Number [facility] [place] [address] * Specimen to Pathology (surgical or derm) (10/06/2014 4:58 PM EST) AP Specimen 10/06/2014 4:58 PM EST 10/06/2014 4:58 PM EST Narrative SENA SESAY - 10/06/2014 4:58 PM EST Specimen requisition ordered. ??Separate Pathology report to follow Bassem Allred MD PATHOLOGY/CYTOLOGY O LOW Performing Organization Address [facility] Co de Phone Number [facility] * Specimen to Pathology (surgical or derm) (10/06/2014 4:58 PM EST) AP Specimen 10/06/2014 4:58 PM EST 10/06/2014 4:58 PM EST Narrative SENA SESAY - 10/06/2014 4:58 PM EST Specimen requisition ordered. ??Separate Pathology report to follow Bassem Allred MD PATHOLOGY/CYTOLOGY Svetlana KELSEY [facility] * UPPER GI ENDOSCOPY (10/06/2014 3:38 PM EST) UPPER GI ENDOSCOPY [facility] Endoscopy Patient Name: Hannah Wong ? Procedure Date: 10/06/2014 3:38 PM ? N: [id number] ? Date of : 1965 ? Age: 49 ? Order #: [id number] ? Procedure: ? Upper GI endoscopy Indications: ? Generalized abdominal pain, Anemia Providers: ? Bassem Allred MD, Guera Salmeron, ? RN, Murphy Eldridge, Divider Operator Referring : ?Avery Caballero MD, Yesenia Castillo. ? Osorio, RETORT FIRER Medicines: ? Midazolam 1.5 mg IV, Fentanyl [...] * COLONOSCOPY (10/06/2014 3:37 PM EST) COLONOSCOPY [facility] Endoscopy Patient Name: Hannah Wong ? Procedure Date: 10/06/2014 3:37 PM ? Date of : 1965 ? Age: 49 ? Order #: [id number] ? Procedure: ? Colonoscopy Indications: ? Abdominal pain, thickened ascending ? colon on CT scan, anemia Providers: ? Bassem Allred MD, Guera Salmeron, ? RN, Murphy Eldridge, Divider Operator Referring MD: ?Avery Caballero MD, Yesenia [...] PROVATION documented in this encounter Visit Diagnoses Diagnosis Abnormal CT scan Other nonspecific (abnormal) findings on radiological and other examinations of body structure Abdominal pain, RUQ (right upper quadrant) Abdominal pain, right upper quadrant Constipation, unspecified constipation type documented in this encounter Administered Medications Inactive Administered Medications - up to 3 most recent administrations Medication Order MAR Action Action Date Dose Rate Site fentaNYL 50 mcg/mL multi-dose injection ONCE PRN, Starting on Sun10/06/14 at 1609, Until Sun10/06/14 at 1806, Intra-Operative (Intra-Procedure), Routine Given 10/06/2014 4:47 PM EST 25 mcg Right Arm Given 10/06/2014 4:44 PM EST 50 mcg Ri ght Arm Given 10/06/2014 4:26 PM EST 50 mcg Ri ght Arm lactated ringers infusion 100 mL/hr, Intravenous, CONTINUOUS, Starting on Sun10/06/14 at 1545, Until Sun10/06/14 at 1806, Endoscopy (Day of Procedure) New Bag 10/06/2014 3:43 PM EST 100 mL/hr 100 mL/hr midazolam (PF) (VERSED) 1 mg/mL multi-dose injection ONCE PRN, Starting on Sun10/06/14 at 1609, Until Tu10/06/14 at 1806, Intra-Operative (Intra-Procedure), Routine Given 10/06/2014 4:47 PM EST 0.5 mg Right Arm Given 10/06/2014 4:44 PM EST 1 mg Ri ght Arm Given 10/06/2014 4:30 PM EST 1 mg Ri ght Arm documented in this encounter Active and Recently Administered Medications Times are shown in EST. Continuous Medication Order 10/04/2014 10/05/2014 10/06/2014 lactated ringers infusion (CANCELED) 100 mL/hr, Intravenous, CONTINUOUS, Starting on 10/06/14 at 1545, Until 10/06/14 at 1806, Endoscopy (Day of Procedure) 1543 (New Bag - Prov ider: Germain Rashid RN) PRN Medication Order 10/04/2014 10/05/2014 10/06/2014 fentaNYL 50 mcg/mL multi-dose injection (CANCELED) ONCE PRN, Starting on 10/06/14 at 1609, Until 10/06/14 at 1806, Intra-Operative (Intra-Procedure), Routine 1609 (Given - Provid er: Guera Salmeron RN)1612 (Given - Provider: Guera Salmeron RN)1620 (Given - Provider: Guera Salmeron RN)1626 (Given - Provider: Guera Salmeron RN)1644 (Given - Provider: Guera Salmeron RN - Comment: re-egd)1647 (Given - Provider: Guera Salmeron RN) midazolam (PF) (VERSED) 1 mg/mL multi-dose injection (CANCELED) ONCE PRN, Starting on 10/06/14 at 1609, Until 10/06/14 at 1806, Intra-Operative (Intra-Procedure), Routine 1609 (Given - Provid er: Guera Salmeron RN)1612 (Given - Provider: Guera Salmeron RN)1616 (Given - Provider: Guera Salmeron RN)1626 (Given - Provider: Guera Salmeron RN)1630 (Given - Provider: Guera Salmeron RN)1644 (Given - Provider: Guera Salmeron RN - Comment: pre-egd)1647 (Given - Provider: Guera Salmeron RN) documented in this encounter Care Teams Undercollar Maker Relationship Specialty Start Date End Date Avery Caballero MD [address] [place] [address] PCP - General 04/15/14 documented as of this encounter
--- OUTSIDE RECORDS SUMMARY | 2024-04-08 18:09 | XMS_ITS | Encounter Summary ---
[facility] [place] [address] Care Team Providers Care Residential Program Manager Name Role Phone Avery Caballero MD Primary Care Provider [phone] Encounter Details Date Type Department Care Team (Late st Contact Info) Description 10/23/2014 Orders [place] [address] Hiram Barrow MD [facility] [place] [address] S/P abdominoplasty; Right upper quadrant pain Social History Tobacco Use Types Packs/Day [...] documented as of this encounter Results * IR all drainage procedures (10/26/2014 8:44 AM EST) Anatomical Region Laterality Modality X-Ray Angiograph y 10/26/2014 8:44 AM EST Impressions 10/27/2014 9:37 AM EST IMPRESSION: ??Findings consistent with ascending colitis. Etiologies include inflammatory, ischemic and infective. A second CECT scan was performed on 10/19/2014 ([facility]) which showed post operative changes in the right subcostal area with several surgical clips noted. There is no discreet fluid or rim enhancement. There is a subcutaneous fluid collection along the lateral aspect of the right lower quadrant. There is a distinct rim present; ddx includes seroma vs hematoma vs infection (my interpretation of the study). Technique/findings: The right subcostal region was examined with US. There is a linear/tubular area of decreased echogenicity. It is not clearly fluid and does not indent when probe pressure is applied, though the patient has discomfort in this area. There is no overlying erythema of the skin. (note, the patient denies fever chills or night sweats). Evaluation of the lateral aspect of the RLQ reveals a subcutaneous collection with mixed echogenicity, likely organizing hematoma. Minimal tenderness is voiced by the patient in this area. ??Again, there is no overlying erythema of the skin. ?? Assessment: 1. No sonographic evidence of fluid collection in the right subcostal region. 2. Mixed echogenicity collection in the lateral aspect of the RLQ of the abdomen, most likely representing organizing hematoma given the lack of objective signs of infection. Given the sonographic appearance, it is unlikely that aspiration + / - drainage would yield any significant volume. Comment: ??The US findings were discussed with the patient and her at length. Ms. Ling is very frustrated at the discomfort in her right subcostal region and feels it is impacting her quality of life. There is no defined fluid collection present for drainage. Regarding the lateral RLQ of her abdomen, given her minimal discomfort associated with it, she declined an intervention at this time. ?? Resident: ? Nikolas Joy, DO Attending: ?Molly Hall MD ?(I was present for the entire evaluation) Film and interpretation reviewed by the attending Narrative 10/27/2014 9:37 AM EST A [id number] Procedure: ?? US evaluation of the anterior abdominal wall History: 49 yr old F patient, s/p abdominoplasty on 06/19/14. During the September [address] Barrow, she continued to experience pain in the right lateral sub costal area. A CT scan of the abdomen was performed at [facility] on 09/30/14, demonstrating: Diffuse postsurgical changes in the anterior abdominal wall consistent with the history of abdominoplasty with no evidence for a focal fluid collection or abscess. No abdominal wall hernia seen. There is diffuse thickening of the wall of the ascending colon which does not contain contrast with pericolonic edema and diffuse vascular engorgement in the pericolonic fat. The transverse and descending colon are normal. Due to the lack of intravenous contrast I cannot assess the vascularity. There are postsurgical changes in the region of the appendix. No intra-abdominal free air or free fluid collection. Right kidney and ureter: Calculi: None; Obstruction/hydronephrosis: None ?? Left kidney and ureter: Calculi: None; Obstruction/hydronephrosis: None Urinary bladder: Calculi: None This examination is limited for the evaluation of solid organs and vasculature structures due to the lack of intravenous contrast. Unenhanced images of the liver, spleen, pancreas, and adrenal glands are within normal limits. No lymphadenopathy. Procedure Note ForKota olson MD - 10/27/2014 A [id number] Procedure: US evaluation of the anterior abdominal wall History: 49 yr old F patient, s/p abdominoplasty on 06/19/14. During theSeptember [address] Barrow, she continued to experience pain in theright lateral sub costal area. [facility] CT [facility], demonstrating: Diffuse postsurgical changes in the anterior abdominal wall consistentwith the history of abdominoplasty with no evidence for a focal fluid collectionor abscess. No abdominal wall hernia seen. There is diffuse thickening of the wall of the ascending colon which doesnot contain contrast with pericolonic edema and diffuse vascular engorgementin the pericolonic fat. The transverse and descending colon are normal. Due tothe lack of intravenous contrast I cannot assess the vascularity. There arepostsurgical changes in the region of the appendix. No intra-abdominal free air or freefluid collection. Right kidney and ureter: Calculi: None; Obstruction/hydronephrosis: None Left kidney and ureter: Calculi: None; Obstruction/hydronephrosis: None Urinary bladder: Calculi: None This examination is limited for the evaluation of solid organs andvasculature structures due to the lack of intravenous contrast. Unenhanced images of the liver, spleen, pancreas, and adrenal glands arewithin normal limits. No lymphadenopathy. IMPRESSION IMPRESSION: Findings consistent with ascending colitis. Etiologiesinclude inflammatory, ischemic and infective. A second CECT scan was performed on 10/19/2014 ([facility])which showed post operative changes in the right subcostal area with severalsurgical clips noted. There is no discreet fluid or rim enhancement. There is a subcutaneous fluid collection along the lateral aspect of the rightlower quadrant. There is a distinct rim present; ddx includes seroma vs hematomavs infection (my interpretation of the study). Technique/findings: The right subcostal region was examined with US. Thereis a linear/tubular area of decreased echogenicity. It is not clearly fluid anddoes not indent when probe pressure is applied, though the patient hasdiscomfort in this area. There is no overlying erythema of the skin. (note, the patientdenies fever chills or night sweats). Evaluation of the lateral aspect of the RLQ reveals a subcutaneouscollection with mixed echogenicity, likely organizing hematoma. Minimal tendernessis voiced by the patient in this area. Again, there is no overlying erythemaof the skin. Assessment: 1. No sonographic evidence of fluid collection in the right subcostalregion. 2. Mixed echogenicity collection in the lateral aspect of the RLQ of the abdomen, most likely representing organizing hematoma given the lack of objective signs of infection. Given the sonographic appearance, it isunlikely that aspiration + / - drainage would yield any significant volume. Comment: The US findings were discussed with the patient and her husbandat length. Ms. Ling is very frustrated at the discomfort in her rightsubcostal region and feels it is impacting her quality of life. There is no definedfluid collection present for drainage. Regarding the lateral RLQ of her abdomen,given her minimal discomfort associated with it, she declined an intervention atthis time. Resident: Nikolas Joy DO Attending: Molly Hall MD (I was present for the entireevaluation) Film and interpretation reviewed by the attending Hiram Barrow MD IMG IR ORDERABLES documented in this encounter Visit Diagnoses Diagnosis S/P abdominoplasty Other postprocedural status Right upper quadrant pain Abdominal pain, right upper quadrant S/P abdominoplasty Other postprocedural status Right upper quadrant pain Abdominal pain, right upper quadrant documented in this encounter Care Teams Residential Program Manager Relationship Specialty Start Date End Date Avery Caballero MD [address] [place] [address] PCP - General 04/15/14 documented as of this encounter
--- OUTSIDE RECORDS SUMMARY | 2024-04-08 18:09 | XMS_ITS | Referral Summary ---
Author Organization [facility] Address [address] [place] [address] Care Team Providers Care Can Reconditioner Name Role Phone Avery Caballero MD Primary Care Provider [phone] Allergies Active Allergy Reactions Criticality Noted Date Comments Latex, Natural Rubber Hives,Swelling Medium 10/05/2011 Meclizine Other (See Comments) 09/18/2012 Caused a unresponsive episode requiring 2 day hospitalization Silver 09/20/2012 Causes blisters Medications Medication Sig Dispensed Refills Start Date End Date Status fluticasone-salmetero l (ADVAIR DISKUS) 250-50 mcg/dose diskus inhaler Inhale 1 Puff as directed 2 times daily. Active fluticasone (FLONASE) 50 mcg/actuation nasal spray 1 Julian by Nasal route 2 times daily. Active montelukast (SINGULAIR) 10 mg tablet Take 10 mg by mouth at bedtime. Active ALBUTEROL INHL Inhale 1 Puff as directed as needed. Active Multivitamins with Minerals Tab Take 1 Tab by mouth daily. Active cholecalciferol, Vitamin D3, (VITAMIN D3) 2,000 unit tablet Take 2,000 Units by mouth daily. Active pyridoxine (VITAMIN B6) 50 mg tablet Take 50 mg by mouth daily. Active cyanocobalamin 500 mcg tablet Take 500 mcg by mouth daily. Active acetaminophen (TYLENOL) 650 mg/20.3 mL solution Take 20.3 mL by mouth every 4 hours. 09/22/2012 Active omeprazole (PRILOSEC) 40 mg capsule Take 1 Cap by mouth daily. 30 Cap 2 09/22/2012 Active ursodiol (ACTIGALL) 300 mg capsule Take 1 Cap by mouth 2 times daily. 60 Cap 12 10/31/2012 Active Active Problems Problem Noted Date Diagnosed Date Status post partial gastrectomy 10/31/2012 Gastroesophageal reflux disease 09/20/2012 Hiatal hernia 02/23/2012 Gastroesophageal reflux disease 02/23/2012 Asthma 12/12/2011 Overview: neela chronically, very rare use of albuterol Morbid obesity ([facility]) 11/07/2011 Resolved Problems Problem Noted Date Diagnosed Date Resolved Date Pre-operative examination 09/20/2012 Social History Tobacco Use Types Packs/Day Years Used Date Smoking Tobacco: Never Alcohol Use Standard Drinks/Week Comments No 0 (1 standard drink = 0.6 oz pur e alcohol) Sex and Gender Information Value Date Recorded Sex Assigned at Not on file Gender Identity Not on file Sexual Orientation Not on file Last Filed Vital Signs Vital Sign Reading Time Taken Comments Blood Pressure 120/68 05/07/2014 1534 EDT Pulse 66 09/17/2013 1602 EST Temperature 36.7 ??C (98.1 ??F) 09/22/2012 0748 EST Respiratory Rate 16 09/22/2012 0748 EST Oxygen Saturation 96% 09/22/2012 0748 EST Inhaled Oxygen Concentration - - Weight 79.9 kg (176 lb 3.2 oz) 05/07/2014 1534 E DT Height 149.7 cm (4' 10.94) 05/07/2014 1534 EDT Body Mass Index 35.66 05/07/2014 1534 EDT Plan of Treatment Not on file Advance Directives For more information, please contact: [phone] * Full Code (Latest Code Status on File) Date Activated Date Inactivated Comments 09/20/2012 13:41 09/22/2012 13:57 * Full Code Date Activated Date Inactivated Comments 09/20/2012 6:38 09/20/2012 13:41 Care Teams Can Reconditioner Relationship Specialty Start Date End Date Avery Caballero MD [address] [place] [address] PCP - General 12/20/10
--- OUTSIDE RECORDS SUMMARY | 2024-04-08 18:09 | XMS_ITS | Encounter Summary ---
Author Organization [facility] Address [address] [place] [address] Care Team Providers Care Psychology Associate Name Role Phone Avery Caballero MD Primary Care Provider [phone] Reason for Visit * Reason Onset Date Comments Appointment Related 10/12/2014 Cancel appointment make it for a month out and leave message on answering machine. Encounter Details Date Type Department Care Team (Late st Contact Info) Description 10/12/2014 Telephone [facility] Bariatric Surgery - [place] [address] [place] [address] Leon Georges, VICTORINO [address] [facility], [facility], [address] [place] [address] Appointment Related (Cancel 09/20/14 appointment make it for a month out and leave message on answering machine.) Social History Tobacco Use Types Packs/Day Years Used Date Smoking Tobacco: Never Alcohol Use Standard Drinks/Week Comments No 0 (1 standard drink = 0.6 oz pur e alcohol) Sex and Gender Information Value Date Recorded Sex Assigned at Not on file Gender Identity Not on file Sexual Orientation Not on file documented as of this encounter Miscellaneous Notes * Telephone Encounter - Simi Guerrero - 10/13/2014 1427 EST Left message on answer machine with new appointment of November 19 @ 3:45pm documented in this encounter Plan of Treatment Not on file documented as of this encounter Visit Diagnoses Not on filedocumented in this encounter Care Teams Psychology Associate Relationship Specialty Start Date End Date Avery Caballero MD [address] [place] [address] PCP - General 12/20/10 documented as of this encounter
--- OUTSIDE RECORDS SUMMARY | 2024-04-08 18:09 | XMS_ITS | Encounter Summary ---
[place] [address] Care Team Providers Care Business Intelligence Consultant Name Role Phone Avery Caballero MD Primary Care Provider [phone] Reason for Visit * Reason Comments Follow Up Surgery abdominoplasty, thig hplasty: question infection Encounter Details Date Type Department Care Team (Latest Contact Info) Description 07/13/2014 11:00 AM EST Clinical Support [place] [id number] NURSE, PLASTIC SURGERY Other specified aftercare following surgery Discharge Disposition: Home Social History Tobacco Use [...] Pressure - - Pulse - - Temperature 36.7 ??C (98 ??F) 07/13/2014 11:19 AM EST Respiratory Rate - - Oxygen Saturation - - Inhaled Oxygen Concentration - - Weight - - Height - - Body Mass Index - - documented in this encounter Patient Instructions * Patient Instructions* Nadya Haile RN - 07/14/2014 8:22 AM EST Wash with soap and water Apply ointment to superficial openings at your incisions Pack the groin incision and wound at the medial knee with silver alginate once a day Wear your support garment with activity documented in this encounter Progress Notes * Nadya Haile RN - 07/14/2014 8:12 AM EST Client seen by this law writer for question of infection at the left thigh incision following a bilateral thighplasty and panniculectomy on 06/19/2014. Client is afebrile today. There is no sign of infection, seroma or hematoma at the surgical sites. There are multiple areas of spitting sutures and seng at both thighs. Right thigh: Sutures and seng were removed and ointment and a dressing placed Left thigh: Sutures and seng were removed and ointment placed at superficial openings. There is a 1.0 x 3.0 x 0.7 area of dehiscence at the groin and a 1.5 x 1.0 wound at the medial knee A silver alginate was used to pack these sites. Abdomen: Incisions are well approximated and without sign of infection Client continues to wear a support garment as directed. Instruction were reviewed for wound care and use of support garments documented in this encounter Plan of Treatment Not on file documented as of this encounter Visit Diagnoses Diagnosis Other specified aftercare following surgery documented in this encounter Care Teams Business Intelligence Consultant Relationship Specialty Start Date End Date Avery Caballero MD [address] [place] [address] PCP - General 04/15/14 documented as of this encounter
--- OUTSIDE RECORDS SUMMARY | 2024-04-08 18:09 | XMS_ITS | Encounter Summary ---
[facility] Organization [facility] [place] [address] Care Team Providers Care Data Collection Interviewer Name Role Phone None Primary Care Provider Unavailabl e Encounter Details Date Type Department Care Team (Late st Contact Info) Description 07/27/2012 Telephone [place] [id number] Francesco Trevizo MD [facility] [place] [address] Social History Tobacco Use Types Packs/Day Years Used Date Smoking Tobacco: Never Assessed Sex and Gender Information Value Date Recorded Sex Assigned at Not on file Gender Identity Not on file Sexual Orientation Not on file documented as of this encounter Miscellaneous Notes * Telephone Encounter - Francesco Trevizo - 07/27/2012 10:09 AM EST Call from [facility] Episode of vertigo abdominal pain nausea vomiting AMS CT CSF NEG with 2 cells Labs WBC 51633 Low bp episode at night. Still has vertigo, neck tenderness. ? Viral meningitis/encephalitis Asks if any other tests needs to be done Advised herpes, equine encephalitis and enterovirus Advised to consider empiric acyclovir if clinical suspicion. Plan to wait for test results documented in this encounter Plan of Treatment Not on file documented as of this encounter Visit Diagnoses Not on filedocumented in this encounter Care Teams Data Collection Interviewer Relationship Specialty Start Date End Date None None PCP - General 07/26/10 04/14/14 documented as of this encounter
--- OUTSIDE RECORDS SUMMARY | 2024-04-08 18:09 | XMS_ITS | Encounter Summary ---
Author Organization [facility] Address [address] [place] [address] Care Team Providers Care Technical Administrative Assistant Name Role Phone Avery Caballero MD Primary Care Provider [phone] Reason for Visit * Reason Onset Date Comments Appointment Related 07/07/2016 Encounter Details Date Type Department Care Team (Late st Contact Info) Description 07/07/2016 Telephone [facility] Bariatric Surgery [address] [id number] Leon Georges, PANikiaC [address] [place] [address] [address] [place] [phone] Appointment Related Social History Tobacco Use Types Packs/Day Years Used Date Smoking Tobacco: Never Alcohol Use Standard Drinks/Week Comments No 0 (1 standard drink = 0.6 oz pur e alcohol) Sex and Gender Information Value Date Recorded Sex Assigned at Not on file Gender Identity Not on file Sexual Orientation Not on file documented as of this encounter Miscellaneous Notes * Telephone Encounter - Dayanara You - 07/19/2016 1132 EST Letter sent * Telephone Encounter - Dayanara You - 07/12/2016 1255 EST Called 2nd time lm on vm * Telephone Encounter - Dayanara You - 07/07/2016 1528 EDT Called pt to see if she would like to schedule an appt andrea n noah documented in this encounter Plan of Treatment Not on file documented as of this encounter Visit Diagnoses Not on filedocumented in this encounter Care Teams Technical Administrative Assistant Relationship Specialty Start Date End Date Avery Caballero MD [address] [place] [address] PCP - General 12/20/10 documented as of this encounter
--- OUTSIDE RECORDS SUMMARY | 2024-04-08 18:09 | XMS_ITS | Encounter Summary ---
Author Organization [facility] [place] [address] Care Team Providers Care Bariatric Physician Name Role Phone Avery Caballero MD Primary Care Provider [phone] Reason for Visit * Reason Comments Follow Up Surgery abdominoplasty/thigh plasty dos 06/19/15, discuss bbr Encounter Details Date Type Department Care Team (Late st Contact Info) Description 04/12/2015 3:30 PM EDT [place] [address] Hiram Nascimento MD [facility] [place] [address] Macromastia; Excess skin of arm Discharge Disposition: Home Social History Tobacco Use [...] - Inhaled Oxygen Concentration - - Weight 81.4 kg (179 lb 6.4 oz) 04/12/2015 3:41 P M EDT Height 149.9 cm (4' 11) 04/12/2015 3:41 PM EDT Body Mass Index 36.23 04/12/2015 3:41 PM EDT documented in this encounter Patient Instructions * Patient Instructions* Darcy Neves RN - 04/12/2015 4:17 PM EDT You were given written and verbal preoperative instructions today. To prepare for your upcoming surgery, please review the Pre-Operative Instruction brochure that youwere given at today's appointment. Feel free to call our office [phone] if you have any questions or concerns. We monitor the phones from 8-Sunday through Sunday. documented in this encounter Progress Notes * Darcy Neves RN - 04/12/2015 4:17 PM EDT Pre-Op Teaching for Surgery Surgery: BBR and brachioplasty Written and verbal pre-operative instructions were given and reviewed with patient: Patient was advised to discontinue use of NSAIDS and aspirin products (unless otherwise advised by patient's PCP/Wharf Tally Clerk for cardiac symptoms), fish oil, Vitamin E [...] prior tosurgery. * Hiram Nascimento MD - 04/12/2015 3:14 PM EDT Plastic Surgery Follow Up Note Reason for visit: F/U status post procedure Date of surgery: 06/19/14 Procedure(s): Abdominoplasty, thigh plasty Pain: 0/10 Complications: Right hip wound from emerged clip HPI: Hannah is accompanied by her for today's visit. She reports her pain concerns have resolved and she is back to her normal exercise routine, including biking.. She would like to proceed with a breast reduction and brachyplasty. She has chronic back pain related to the weight of her breasts causing her to lean forward. She also has concerns regards in the contour of her back. She is currently a DD and would like to be a B cup. She would like to know if she would benefit from a revision to her abdominoplasty to remove more ofthe tissue. Pertinent findings to emphasize are: PLASTICS BREAST QUESTIONS 04/12/2015 Headaches? None of the time Pain in your breast area? Some of the time Lack of energy? A little of the time Difficulty doing vigorous physical activities (e.g. running or exercising)? Some of the time Feeling physically unbalanced? All of the time Shoulder pain? Some of the time Difficulty sleeping because of discomfort in your breast area? Some of the time Neck pain? Some of the time Painful gouges or grooves in your shoulders from your bra straps? All of the time Feeling physically uncomfortable? Some of the time Rashes under your breasts? None of the time Back pain? All of the time Arm pain? Some of the time Pain, numbness or tingling in your hands because of your breast size? None of the time Satisfaction with Breasts 38 PsychoSocial Well-being 49 Sexual Well-being 67 Physical Well-being 53 Conservative Therapy Treatments: MYD-H PLASTICS CONSERVATIVE THERAPY TREATMENTS 04/12/2015 Physical therapy was effective at relieving my symptoms. No Relief How many months did you try this treatment? Less than 3 months Use of custom support bras relieved my symptoms. No Relief How many months did you try this treatment? 3 to 6 months Treatment by a chiropractor relieved my symptoms. Never Tried Weight loss relieved my symptoms. No Relief How many months did you try this treatment? More than 6 months Non-narcotic medications (such as Tylenol, Aspirin, Ibuprofen, Aleve, etc) have relieved my symptoms. No Relief How many months did you try this treatment? 3 to 6 months Narcotic pain relievers (such as Tylenol #3, Percocet, etc) have relieved my symptoms. Never Tried Other Treatments have relieved my symptoms. No Relief Please specify which treatments have helped. hunched forward is the only relief. used walking stick How many months did you try this treatment(s)? 3 to 6 months Over the counter or prescription medication has relieved the rashes under my breasts. Never Tried Examination: Ht 149.9 cm (4' 11) Wt 81.375 kg (179 lb 6.4 oz) BMI 36.21 kg/m2 Body surface area is 1.84 meters squared. Patient is alert, conversant, comfortable, ambulating Abdominal incision well healed Thigh incisions: well healed Excess skin folds on upper arms bilaterally Anatomic Breast Measurements: Right Left Ptosis III III Notch-nipple (cm) 33 33 IMF to nipple (cm) 11 12 Midline NAC (cm) 10 11 Estimated reduction 500 500 Impression: Excess skin fold of upper arms; Brachyplasty Symptomatic bilateral breast hypertrophy. Bilateral breast reduction is indicated for relief of herbreast-related symptoms. She watched the [employer] video on breast reduction, and was provided with an [employer] brochure and informed consent on breast reduction. It reviews the surgical risks, alternate skin incisions and pedicle versus free nipple graft techniques. It also discusses the option of volume reduction by liposuction alone, which does not alter the nipple-areolar complex position. It talks about the impact of this surgery on decreasing breast cancer risk. The following risks were reviewed in the video or in our discussion: Surgical Risks which are greater with open reduction: bleeding with risk of hematoma (<5%); numbness, which may be temporary or permanent; scarring, including abnormal scarring; infection (5-10%);fat necrosis resulting in a breast mass and possible need for revision. I stressed the likelihood of minor problems with delayed wound healing (~30%) and the rare complication of nippleareolar necrosis. She is also aware that there may be some residual pain after the surgery and that there may possibly be some asymmetry. Vertical or Lollipop Incision: Less scarring on breast, but slightly greater risk for delayed healing and desire for scar revision. (She was informed that her insurer might not cover secondary revisions for scarring or asymmetry.) Dee or Bancroft Pattern Incision: More scarring on breast, but lower risk for scar revision. (She was informed that her insurer might not cover secondary revisions for scarring or asymmetry.) Pedicle Technique: volume of reduction may be limited by need to provide an adequate blood supply to the nipple. There is a very small risk of nipple loss. Most women (~60%) will be able to breast-feed. Free Nipple Graft: The grafts will initially have no sensation and once fully healed may not respond to temperature and touch as they do now. She has also been informed that they may not look entirely normal and may have patchy hypopigmentation. She will not be able to breast feed with this technique. After fully discussing the options, she has opted to pursue a: Bilateral Breast Reduction Vertical, Pedicle x Bilateral Breast Reduction Dee, Pedicle Bilateral Breast Reduction Dee, FNG Anticipated resection: 500 grams right breast 500 grams left breast BSA [employer]/[place] Medicaid All other / Schnur 1.80 655 441 1.81 665 1.82 680 1.83 690 1.[address] Nascimento Duration: 5 hours Timeframe: elective Procedure: BBR, brachyplasty and liposuction of upper flanks 1 hour CPT: 61173, 19505, 39519 Surgical site: breasts, arms, and upper flanks Side: bilateral Anesthesia: General Follow up: 1-3 days drain removal for breasts, 10 days Varsha Lima PAT: No I, Hannah Roger, am acting as scribe for Dr Nascimento. All work documented was performed by Dr Nascimento. ???I performed the above scribed service and agree with the accuracy of the note?? HIRAM NASCIMENTO MD documented in this encounter Plan of Treatment Not on file documented as of this encounter Procedures Procedure Name Priority Date/Time Associated Diagnosis Comments REDUCTION MAMMOPLASTY, BILATERAL Routine 04/12/2015 3:46 PM EDT documented in this encounter Visit Diagnoses Diagnosis Macromastia Hypertrophy of breast Excess skin of arm Unspecified hypertrophic and atrophic condition of skin documented in this encounter Care Teams Bariatric Physician Relationship Specialty Start Date End Date Avery Caballero MD [address] [place] [address] PCP - General 04/15/14 documented as of this encounter
--- OUTSIDE RECORDS SUMMARY | 2024-04-08 18:09 | XMS_ITS | Encounter Summary ---
Author Organization [facility] [place] [address] Care Team Providers Care Country Printer Name Role Phone Avery Caballero MD Primary Care Provider [phone] Encounter Details Date Type Department Care Team (Late st Contact Info) Description 10/21/2014 [facility]phone [facility] [place] [address] Yesenia Ac APRN [facility] [place] [address] Social History Tobacco Use Types Packs/Day Years [...] encounter Miscellaneous Notes * Telephone Encounter - Yesenia Ac APRN - 10/21/2014 4:40 PM EST Attempted to contact patient regarding the results of her CT A/P but no answer and left a message with call back number. She is scheduled to see Dr Danial barksdale. Will email the patient with the results. documented in this encounter Plan of Treatment Not on file documented as of this encounter Visit Diagnoses Not on filedocumented in this encounter Care Teams Country Printer Relationship Specialty Start Date End Date Avery Caballero MD [address] [place] [address] PCP - General 04/15/14 documented as of this encounter
--- OUTSIDE RECORDS SUMMARY | 2024-04-08 18:09 | XMS_ITS | Encounter Summary ---
Author Organization [facility] [place] [address] Care Team Providers Care Pellet Mill Operator Name Role Phone Avery Caballero MD Primary Care Provider [phone] Reason for Visit * Reason Comments Advice Only abdominoplasty and t high plasty consult Encounter Details Date Type Department Care Team (Late st Contact Info) Description 04/15/2014 1:35 PM EDT Office [place] [address] Hiram Nascimento MD [facility] [place] [address] Abdominal pannus; Breast hypertrophy; Lipodystrophy Discharge Disposition: Home Social History Tobacco Use Types Packs/Day Years Used Date Smoking Tobacco: Never Smokeless Tobacco: Never Sex and Gender Information Value Date Recorded Sex Assigned at Not on file Gender Identity Not on file Sexual Orientation Not on file documented as of this encounter Last Filed Vital Signs Vital Sign Reading Time Taken Comments Blood Pressure 134/83 04/15/2014 2:05 PM EDT Pulse 73 04/15/2014 2:05 PM EDT Temperature - - Respiratory Rate - - Oxygen Saturation - - Inhaled Oxygen Concentration - - Weight 80.4 kg (177 lb 3.2 oz) 04/15/2014 2:05 P M EDT Height 151.8 cm (4' 11.75) 04/15/2014 2:05 PM E DT Body Mass Index 34.9 04/15/2014 2:05 PM EDT documented in this encounter Patient Instructions * Patient Instructions* Meredith Rosa CMA - 04/15/2014 3:01 PM EDT Written and verbal preoperative and postoperative instructions were given at this visit. Please review the written information prior to your procedure and contact us with any questions. documented in this encounter Progress Notes * Meredith Rosa CMA - 04/15/2014 3:00 PM EDT Pre-Op Teaching for Surgery Surgery: Abdominoplasty, Thighplasty and liopsuction Written and verbal pre-operative instructions were given and reviewed with patient: Patient was advised to discontinue use of NSAIDS and aspirin products (unless otherwise advised by patient's PCP/Applications Trainer for cardiac symptoms), fish oil, Vitamin E [...] prior tosurgery. * Hiram Nascimento MD - 04/15/2014 1:54 PM EDT Plastic Surgery Consultation Note Hiram Nascimento MD PCP: AVERY CABALLERO MD CC: Abdominal pannus, breast hypertrophy, thigh lipodystrophy HPI: Hannah Ling is a 49 y.o. female seen in my office today for consideration for abdominal panniculectomy. Her PCP is AVERY CABALLERO MD and has requested the consultation. She is accompanied by her , Jim for today's visit. She reports she has lost about 80 lbs. She reports her maximum weight was over 200 lbs. She is interested in discussing an abdominoplasty, breast reduction, thighplasty and brachioplasty. She reports that she does not have any infections or other skin related issues due to the weight loss. She is unhappy with the appearance of the excess skin due to the weight loss. She previously underwent bariatric surgery in [place] and remains in the program. She brought her labs with her today which all showed normal results. Past Medical History Diagnosis Date ??? Allergy ??? Breathing problem ??? Musculoskeletal disease ??? ENT disease ??? Eye problems ??? Digestive problems ROS: HEENT, GI, /Renal, Psych, Card, Pulm, Endo, Heme, Immun, Neuro: negative Past Surgical History Procedure Date ??? Cranio/maxillofacial surg unlisted ??? Throat surgery procedure unlisted ??? Genital surg proc, female unlisted ??? Musculoskeletal surgery unlisted ??? Gastroenterology procedure Social History: History Social History ??? Marital Status: Spouse Name: N/A Number of Children: N/A ??? Years of Education: N/A Occupational History ??? Not on file. Social History Main Topics ??? Smoking status: Never Smoker ??? Smokeless tobacco: Never Used ??? Alcohol Use: Not on file ??? Drug Use: No ??? Sexually Active: Not on file Other Topics Concern ??? Exercise: Patient Reported Yes ??? Abuse Or Threat: Physical, Sexual, Verbal No Social History Narrative ??? No narrative on file FAM HX: Family History Problem Relation Age of Onset ??? Kidney Disease Mother ??? Kidney Disease Brother ??? Diabetes Mother ??? Stroke Mother ??? Coronary Artery Disease Mother ??? Coronary Artery Disease Father ??? Heart Disease Mother ??? Heart Disease Father ??? High Blood Pressure Mother Examination: BP 134/83 Pulse 73 Ht 151.8 cm (4' 11.75) Wt 80.377 kg (177 lb 3.2 oz) BMI 34.88 kg/m2 Overweight, female in no acute distress, comfortable. She was well oriented and asked appropriate questions throughout the visit. HEENT: MMM, normocephalic, sclera: white, no facial abrasions Neuro: Pupils equal, round, and reactive to light, extra ocular muscles in tact, tongue midline Resp: No stridor, no wheezes, regular rate Extrem: no cyanosis/clubbing/or edema, no rashes Muscuskeletal: gross full ROM x 4 extrem, ambulating, no lesions Abdomen: Large abdominal pannus Well healed transverse incision No hernia palpable. No active rash or cellulitis. Bilateral thighs lipodystrophy Impression: Hannah Ling is a 49 y.o. female is a suitable candidate for abdominoplasty, breast reduction, thighplasty and brachioplasty. I advised her that I would not proceed with more than two of the procedures at one time. I talked about the scars and risks from panniculectomy. She is aware that infection, delayed wound healing, seroma and numbness are possibilities. She has been provided with the [facility] patient information brochure as well as their standard informed consent documents on both abdominoplasty and panniculectomy. She has expressed a desire to proceed with surgical correction. We have obtained photographs today. I will communicate my recommendations to AVERY CABALLERO MD. Surgical Grid: Surgeon: Dr. Nascimento Duration: 6 hours Timeframe: Elective Coordinated with: None Procedure: Abdominoplasty, thighplasty, liposuction CPT: 11120, 74077, 57734 Surgical site: Abdomen, thighs Side: N/a Anesthesia: General Follow up: 14 days PAT: No PCP: Yes, medical clearance from PCP 1 night hospital stay IMelodie, am acting as scribe for Dr Nascimento. All work documented was performed by Dr Nascimento. ???I performed the above scribed service and agree with the accuracy of the note?? HIRAM NASCIMENTO MD documented in this encounter Plan of Treatment Not on file documented as of this encounter Procedures Procedure Name Priority Date/Time Associated Diagnosis Comments ABDOMINOPLASTY EXC,W/ UMBILICAL TRANSPOSITION, FASCIAL PLICATION Routine 04/15/2014 2:58 PM EDT documented in this encounter Visit Diagnoses Diagnosis Abdominal pannus Localized adiposity Breast hypertrophy Hypertrophy of breast Lipodystrophy documented in this encounter Care Teams Pellet Mill Operator Relationship Specialty Start Date End Date Avery Caballero MD [address] [place] [address] PCP - General 04/15/14 documented as of this encounter
--- OUTSIDE RECORDS SUMMARY | 2024-04-08 18:09 | XMS_ITS | Encounter Summary ---
[place] [address] Care Team Providers Care Manager Development Name Role Phone Avery Caballero MD Primary Care Provider [phone] Encounter Details Date Type Department Care Team (Late st Contact Info) Description 06/19/2014 11:57 AM EDT Anesthesia [place] [address] Lukas Betts MD [facility] [place] [address] Cherry Gonaclves MD [facility] [place] [address] Anesthesia Record Procedure Summary Procedure Name Responsible Anesthesiologist Anesthesia Start Time Anesthesia Stop Time ABDOMINOPLASTY EXC,W/ UMBILICAL TRANSPOSITION, FASCIAL PLICATION (WRVU 17.04) (Abdomen) Lukas Betts MD 06/19/14 1157 06/19/14 1812 Events Date Time Event Comment 06/19/2014 1157 Start 1159 AN Verify 1159 An Start Data 1208 An Induction 1210 An Intubation 1216 Anesthesia Ready 1223 Break/Relief In SAJAN ZHOU MD 1251 Break/Relief Out 1253 Procedure Start 1356 Break/Relief In SAJAN ZHOU MD 1413 Break/Relief Out 1443 Quick Note BIS 10 1509 Quick Note Closing abdomin al wound 1528 Quick Note Beginning work on thighs 1613 Break/Relief In SAJAN ZHOU MD 1634 Break/Relief Out 1740 Procedure Stop 1755 Extubation/LMA Out 1758 an stop data 1812 Stop 06/24/2014 0901 Meds Name Total Midazolam 2 mg fentaNYL 250 mcg lidocaine IV 50 mg propofol 650 mg Rocuronium 80 mg ondansetron 4 mg dexAMETHasone 8 mg propofol INF 3,395.69 mg ceFAZolin 4 g HYDROmorphone 1.4 mg lactated ringers 1,600 mL lactated ringers 3,700 mL * Agents Name O2 Air Sevoflurane (et) * Blood No blood administrations on file. Lines, Drains, and Airways Type Details Placement Removal Drain/Device Site 06/19/14; Left; groi n; collapsible closed device; 19 Nepali Spencer drain. 06/19/14 0000 by Nicole Dee RN Drain/Device Site 06/19/14; Right; erick in; collapsible closed device; 19 Nepali Spencer drain. 06/19/14 0000 by Nicole Dee RN Drain/Device Site 06/19/14; Right; upp er; thigh; collapsible closed device; 15 fr spencer drain 06/19/14 0000 by Hannah Perdomo RN Incision 06/19/14; abdomen; 05/01/22 (LDA cleanup utility RA#[id number]); 1715 (LDA cleanup utility RA#[id number]) 06/19/14 0000 by Nicole Dee RN 05/01/22 1715 by Piotr Reid Urethral Catheter 06/19/14; indwelling catheter with core temperature probe; 100% silicone; 16; inserted at this facility (Inserted by Nicole Dee RN.); 1; 5; 10; none; drainage bag to dependent drainage; 06/20/14; 22306/19/14 0000 by Nicole Dee RN 06/20/14 223 by Daniela Warner RN Drain/Device Site 06/19/14; Left; uppe r; thigh; collapsible closed device; 15 fr spencer drain; 10/06/14; 1806 06/19/14 0000 by Hannah Perdomo RN 10/06/14 1806 by Jacinda Woods RN (RETIRED) Peripheral IV Line - Single Lumen metacarpal vein right (top of hand); ilvq-iqm-ioduvi catheter system; 20 gauge; 06/22/14; 1235 06/19/14 1218 by 06/22/14 1235 by Latoya Staley RN (RETIRED) Peripheral IV Line - Single Lumen basilic vein left (medial side of arm); oofc-mym-vahglq catheter system; 18 gauge; pt. restless on arrival to PACU. IV came out ; removed per patient; 06/19/14; 181806/19/14 1218 by 06/19/141818 by Sophie Grossman RN ETT Mask Ventilation: Ea sy (1); ETT Type: Cuffed; ETT Size: 7.5 mm; Mac Blade: 4; Notes: Asleep, Stylette, Pre-O2; Attempts: 1; Laryngoscopy Grade: 2; ETT Placement Verified By: Auscultation, Capnometry, Visual; Secured at Teeth: 21 cm; Inserted by: Rosa Goncalves; Removal Date: 06/19/14; Removal Time: 175406/19/14 1311 by 06/19/14 175 by Cherry Goncalves MD documented in this encounter Social History Tobacco [...] OR Notes * Anesthesia Postprocedure Evaluation - Lukas Betts MD - 06/19/2014 9:14 PM EDT Patient: Hannah Ling Procedure(s) Performed: Procedure(s): ABDOMINOPLASTY EXC,W/ UMBILICAL TRANSPOSITION, FASCIAL PLICATION EXCISION EXCESSIVE SKIN AND TISSUE-THIGH SUCTION ASSISTED LIPECTOMY, LOWER EXTREMITY-HIRAL Actual Anesthetic: No value filed. Patient location: PACU Post-op pain: Adequate analgesia Post-op nausea: no nausea or vomiting Last Vitals: Filed Vitals: 06/19/142014 BP: 116/72 Pulse: 75 Temp: 36.3 ??C (97.3 ??F) Resp: 14 Post-op cardiovascular and respiratory status: is stable Level of consciousness: sleepy but arousable Complications: no apparent complications and tolerated the procedure well Fluid Status: normal * Anesthesia Preprocedure Evaluation - Cherry Goncalves - 06/18/2014 2:53 PM EDT Pre-Anesthesia Evaluation for: Hannah Ling a 49 y.o. female. Procedure(s): ABDOMINOPLASTY EXC,W/ UMBILICAL TRANSPOSITION, FASCIAL PLICATION EXCISION EXCESSIVE SKIN AND TISSUE-THIGH SUCTION ASSISTED LIPECTOMY, LOWER EXTREMITY-HIRAL Patient Active Problem List Diagnosis ??? Abdominal pannus ??? Breast hypertrophy ??? Lipodystrophy Past Medical History Diagnosis Date ??? Allergy ??? Breathing problem ??? Musculoskeletal disease ??? ENT disease ??? Eye problems ??? Digestive problems Past Surgical History Procedure Date ??? Cranio/maxillofacial surg unlisted ??? Throat surgery procedure unlisted ??? Genital surg proc, female unlisted ??? Musculoskeletal surgery unlisted ??? Gastroenterology procedure History Substance Use Topics ??? Smoking status: Never Smoker ??? Smokeless tobacco: Never Used ??? Alcohol Use: Not on file History Drug Use No Allergies Allergen Reactions ??? Latex Other (See Comments) swelling ??? Meclizine Other (See Comments) unresponsive Medications: MAR and/or home medications have been reviewed. Physical Exam: There were no vitals filed for this visit. There is no height or weight on file to calculate BMI. Anesthesia Physical Exam Anesthesia Plan: ASA 2 general, with a(n) intravenous induction 49 yo female s/p bariatric surgery presents for abdominoplasty. Significant PONV. Denies recent URI, denies active GERD (on omeprazole), denies CP/SOB, reports good functional tolerance (able to ambulate 2 FOS without problems), and is appropriately NPO. Plan for and risks of anesthesia discussed in detail with the pt, all questions answered, consent obtained. . Plan GA-LMA vs ETT, with standard ASA monitors and adequate IV access. Region - Other Informed Consent: Anesthetic plan and risks discussed with patient and spouse. Use of blood products discussed with patient and spouse whom consented to blood products. Plan discussed with attending. [facility] [place] Assessment: documented in this encounter Plan of Treatment Not on file documented as of this encounter Visit Diagnoses Not on filedocumented in this encounter Administered Medications Inactive Administered Medications - up to 3 most recent administrations Medication Order MAR Action Action Date Dose Rate Site ceFAZolin (ANCEF) 1g in dextrose 5% 50mL PRN, Starting on Sun06/19/14 at 1215, Until Sun06/19/14 at 1812, Administer over 30 Minutes, Anesthesia Intra-op Given 06/19/2014 3:26 PM EDT 2 g Given 06/19/2014 12:15 PM EDT 2 g dexamethasone (DECADRON) injection PRN, Starting on Sun06/19/14 at 1214, Until Sun06/19/14 at 1812, Anesthesia Intra-op, Routine Given 06/19/2014 12:14 PM EDT 8 mg fentaNYL 50mcg/mL injection PRN, Starting on Sun06/19/14 at 1248, Until Sun06/19/14 at 1812, Pain, Anesthesia Intra-op, Routine Given 06/19/2014 2:18 PM EDT 50 mcg Given 06/19/2014 1:37 PM EDT 50 mcg Given 06/19/2014 1:09 PM EDT 100 mcg HYDROmorphone (DILAUDID) injection PRN, Starting on Sun06/19/14 at 1430, Until Sun06/19/14 at 1812, Pain, Anesthesia Intra-op, Routine Given 06/19/2014 5:31 PM EDT 0.2 mg Given 06/19/2014 5:06 PM EDT 0.2 mg Given 06/19/2014 3:28 PM EDT 0.4 mg lactated ringers infusion CONTINUOUS PRN, Starting on Sun06/19/14 at 1159, Until Sun06/19/14 at 1812, Anesthesia Intra-op New Bag 06/19/2014 4:02 PM EDT mL New Bag 06/19/2014 11:59 AM EDT mL lactated ringers infusion CONTINUOUS PRN, Starting on Sun06/19/14 at 1216, Until Sun06/19/14 at 1812, Anesthesia Intra-op New Bag 06/19/2014 4:39 PM EDT mL New Bag 06/19/2014 3:43 PM EDT mL New Bag 06/19/2014 2:23 PM EDT mL lidocaine (PF) (XYLOCAINE) 100 mg/5 mL (2 %) injection PRN, Starting on Sun06/19/14 at 1208, Until Sun06/19/14 at 1812, Anesthesia Intra-op, Routine Given 06/19/2014 12:08 PM EDT 50 mg midazolam (PF) (VERSED) 1 mg/mL injection PRN, Starting on Sun06/19/14 at 1159, Until Sun06/19/14 at 181, Sleep, Anesthesia Intra-op, Routine Given 06/19/2014 11:59 AM EDT 2 mg ondansetron (ZOFRAN) injection PRN, Starting on Sun06/19/14 at 1742, Until Sun06/19/14 at 1812, Nausea, Anesthesia Intra-op, Routine Given 06/19/2014 5:42 PM EDT 4 mg propofol (DIPRIVAN) 10 mg/mL bolus injection (Anesthesia) PRN, Starting on Sun06/19/14 at 1208, Until Sun06/19/14 at 1812, Anesthesia Intra-op Given 06/19/2014 5:31 PM EDT 40 mg Given 06/19/2014 5:08 PM EDT 40 mg Given 06/19/2014 4:30 PM EDT 20 mg propofol (DIPRIVAN) infusion CONTINUOUS PRN, Starting on Sun06/19/14 at 1216, Until Sun06/19/14 at 1812, Anesthesia Intra-op, Routine Rate/Dose Change 06/19/2014 4:37 PM EDT 50 mcg/kg/min 24.8 mL/hr Rate/Dose Change 06/19/2014 4:07 PM EDT 75 mcg/kg/min 37.2 mL/hr Rate/Dose Change 06/19/2014 4:00 PM EDT 130 mcg/kg/min 64. 4 mL/hr rocuronium (ZEMURON) injection PRN, Starting on Sun06/19/14 at 1309, Until 10/17/14 at 1812, Anesthesia Intra-op, Routine Given 06/19/2014 1:09 PM EDT 30 mg Given 06/19/2014 12:08 PM EDT 50 mg documented in this encounter Care Teams Manager Development Relationship Specialty Start Date End Date Avery Caballero MD [address] [place] [address] PCP - General 04/15/14 documented as of this encounter
--- OUTSIDE RECORDS SUMMARY | 2024-04-08 18:09 | XMS_ITS | Encounter Summary ---
[place] [address] Care Team Providers Care Billet Sawyer Name Role Phone Avery Caballero MD Primary Care Provider [phone] Reason for Visit * Reason Comments Follow Up Surgery s/p abdominoplasty, thighplasty, dos 06/19/14 Encounter Details Date Type Department Care Team (Late st Contact Info) Description 12/09/2014 8:15 AM EDT [place] [address] Hiram Barrow MD [facility] [place] [address] S/P panniculectomy Discharge Disposition: Home Social History Tobacco Use [...] this encounter Patient Instructions * Patient Instructions* Hiram Barrow MD - 12/09/2014 8:20 AM EDT Plan: 1. Follow up 3 months documented in this encounter Progress Notes * Hiram Barrow MD - 12/09/2014 8:15 AM EDT Plastic Surgery Follow Up Note Reason for visit: F/U status post procedure Date of surgery: 06/19/14 Procedure(s): Abdominoplasty, thighplasty Complications: Right hip wound from emerged clip HPI: Hannah is accompanied by her for today's visit. She feels that the antibiotics that she was taking has helped. She continues to have some pain on the right side, she feel this is improving. She reports that she would like to discuss options to improve her arm contour and a breast reduction when she returns. Examination: Patient is alert, conversant, comfortable, ambulating Abdominal incision scars are pink and firm maturing positively Thigh incisions: Scars pink and firm Opening on right thigh has now closed Impression: Hannah Ling is a 49 y.o. female who was seen today for follow-up for the above notedprocedure. Right thigh opening has now closed. Her pain continues to resolve. I will see her back in 3 months to discuss a brachioplasty and a breast reduction. Plan: 1. Follow up 3 months IMarta, am acting as scribe for Dr Barrow. All work documented was performed by Dr Barrow. ???I performed the above scribed service and agree with the accuracy of the note?? Hiram Barrow MD documented in this encounter Plan of Treatment Not on file documented as of this encounter Visit Diagnoses Diagnosis S/P panniculectomy documented in this encounter Care Teams Billet Sawyer Relationship Specialty Start Date End Date Avery Caballero MD [address] [place] [address] PCP - General 04/15/14 documented as of this encounter
--- OUTSIDE RECORDS SUMMARY | 2024-04-08 18:09 | XMS_ITS | Encounter Summary ---
[facility] [place] [address] Care Team Providers Care Scrub Tech Name Role Phone Avery Caballero MD Primary Care Provider [phone] Encounter Details Date Type Department Care Team (Latest Contact Info) Description 06/21/2014 12:28 PM EDT - 06/22/2014 1:30 PM EDT Hospital Encounter [address] [place] [id number] Hiram Nascimento MD [facility] [place] [address] Discharge Disposition: Home Social History Tobacco Use [...] Sign Reading Time Taken Comments Blood Pressure 108/64 06/22/2014 9:42 AM EDT Pulse 113 06/22/2014 9:42 AM EDT Temperature 36.9 ??C (98.4 ??F) 06/22/2014 9:42 AM ED T Respiratory Rate 18 06/22/2014 9:42 AM EDT Oxygen Saturation 90% 06/22/2014 9:42 AM EDT Inhaled Oxygen Concentration - - Weight 80.3 kg (177 lb) 06/20/2014 1:20 PM EDT Height 149.9 cm (4' 11) 06/20/2014 1:20 PM EDT Body Mass Index 35.75 06/20/2014 1:20 PM EDT documented in this encounter Discharge Instructions * Patient Instructions* Raegan Mosquera PA - 06/22/2014 7:29 AM EDT During the first 1 to 3 weeks, expect to feel tired from the anesthesia and in general, due to the healing process. Rest frequently during the day, and limit visitors until you feel more up to it. Altered sensation (such as shooting or burning pain) or numbness is common after surgery. Normal ornear normal sensation should return within a few months but some areas may stay numb permanently. You will be able to return to work in 4-6 weeks. You will not be able to lift more than 5 pounds for 6 weeks and no more than 10- 20 pounds for 3 months. No strenuous exercise (tennis, aerobics, jogging) for 3 months. Feel free to walk as much as you want. Walking improves circulation, respiratory function and healing. You will not be able to drive for 2-3 weeks or while taking you pain medication. You may wear your safety belt if you place a small pillow over your abdominal incision. No sexual activity for 6 weeks. No smoking for at least 2 weeks following your surgery. POSTOPERATIVE DRAIN AND INCISION CARE Your hospital nurse will review your drain care. You will learn how to strip, measure, and record the total amount of fluid from each drain. Call the clinic at [phone] and schedule an appointment with the nurses to have your drains removed when the drainage is 30cc or less in a 24 hour period for 2 days in a row. Note: Generalized abdominal swelling above the incision may last for several weeks to months due totissue fluid build-up. You may shower 48 hours after surgery. Do not take a bath or use a hot tub until your skin is completely healed. To reduce the strain on your incision, you should remain in a flexed/recliner chair position for about 5 days- this may take longer in some instances so let your body be your guide. You may remove your dressings after 48 hours. If you feel more comfortable with dressings under thebinder, then you may replace them to suit your comfort needs. If present, nonabsorbable stitches are removed in 2 weeks. Spitting sutures: Occasionally an area of redness and tenderness develops where a dissolving stitchbecomes irritated and pushes to the surface. If this occurs, it is not an emergency. You may clip the stitch with a clean scissor or call for an appointment with a nurse. No tanning on incision lines for at least 6 months to minimize scarring. No over the counter lotions, solutions, or herbal preparations on your incisions unless directed byyour doctor. You will be provided with an abdominal binder or girdle. Wear it 24 hours a day for 4 to 6 weeks, removing it briefly to shower. If any of these occur, contact your doctor right away - 1) Signs of infection: A temperature over 100.4'F or 38'C. Redness or warmth spreading away from the incision lines after the first 48 hours. Yellow pus-like or foul smelling drainage larger than dime size from the incisions or drainage sites. 2) Seromas/Hematoma: Before or after your drains are removed, if you notice localized swelling thiscould be a collection of fluid under the skin at or near the incision site. 3) Increased pain or discomfort that is not relieved by your pain medicine. During office hours: Sunday through Sunday 8 am to 5 pm Call [phone] On weekends or after hours: Call [phone] and ask the brazing machine operator helper to page the Plastic Surgery Resident bulk station agent. Prescription Line: Call the line at [phone] from 8am-4pm Sunday through Sunday. Narcotic renewals will not be honored after hours or on weekends. Make your request a few days before you run out as it make take up to 24 hours for physician approval. * Attachments The following attachments cannot be sent through Care Everywhere. * SURGICAL DRAIN CARE (TELUGU) documented in this encounter Medications at Time of Discharge Medication Sig Dispensed Refills Start Date End Date montelukast (SINGULAIR) 10 mg tablet Take 10 mg by mouth nightly. fluticasone (FLONASE) 50 mcg/actuation nasal spray 1 spray daily. Cholecalciferol, Vitamin D3, 2,000 unit Cap Take by mouth. FERROUS FUMARATE/VIT BCOMP&C (SUPER B COMPLEX ORAL) Take by mouth. Kieeuqowyfmqj-Zt-Lhj n-Minerals Tab Take by mouth. Women's one a day gummy acetaminophen (TYLENOL) 500 mg Tablet Take 2 tablets by mouth every 6 hours as needed for Pain (for MODERATE pain). 06/22/2014 11/25/2014 docusate sodium (COLACE) 100 mg Capsule Take 1 capsule by mouth 2 times daily. 06/22/2014 10/23/2014 traMADol (ULTRAM) 50 mg Tablet Take 1-2 tablets by mouth every 4 hours as needed for Pain. 60 tablet 0 06/22/2014 09/30/2014 ursodiol (ACTIGALL) 300 mg CapsuleIndications:c holelithiasis prevention Take 300 mg by mouth 2 times daily. Indications: Cholelithiasis Prevention 04/28/2019 omeprazole (PRILOSEC) 40 mg capsule Take 40 mg by mouth daily. 04/28/2019 fluticasone-salmeter ol (ADVAIR DISKUS) 250-50 mcg/dose diskus inhaler Inhale 1 puff into the lungs every 12 hours. 09/23/2021 documented as of this encounter Progress Notes * Pricilla Chawla RN - 06/22/2014 1:07 PM EDT Record reviewed and patient discussed with multidisciplinary team. No discharge needs identified atthis time. Pt lives with and plans to d/c home today. 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 Going home with 4 drains but she knowshow to care for them and measure I&O. No need for home services. CRC remains available as needed for coordination of care and discharge planning. Pricilla Chawla RN Office of Care Management Clinical Taxation Economist Covering for Yaquelin Celis Pager [phone] * Latoya Samuels RN - 06/22/2014 10:21 AM EDT Pt d/c to home per md order. Patient AOx4 hrr, lung sounds clear, no n/v sob or chest pain at time of discharge. +bs, lbm prior to discharge, patient is pass flatus at this time, voiding clear yellowurine. Patient ambulating independently with walker at this time. Pain well controlled with tramadol. All IV's removed, patient home with JPx4. All drain teaching completed. Compression garment change d prior to discharge, extra garment given to patient. All belongings home with patient. Prescriptions called in by PA., all discharge instructions reviewed with patient. All questions answered. Patient denies needs for home VNA. Please see flowsheet for full assessment. LATOYA SAMUELS, RN * Charlotte Arrington, RN - 06/21/2014 5:13 PM EDT I assumed care of this pt from [id number]. I agree with the previous nurse's assessment. Pt is alertand oriented x3, VSS, HR regular, lungs clear. Compression garment is clean, dry, and intact and inplace. Pt denies CP/SOB, numbness or tingling. Pain controlled with PRN medications. Will continue to monitor. * Quinn Swann MD - 06/21/2014 9:28 AM EDT Plastic Surgery Progress Note S: remains nauseated when getting up Having difficulty getting out of bed but able to ambulate to bathroom Tolerating regular diet, no nausea/vomiting Pain control better with tramadol O: Blood pressure 113/52, pulse 83, temperature 36.9 ??C (98.4 ??F), temperature source Oral, resp.rate 16, height 149.9 cm (4' 11), weight 80.287 kg (177 lb), SpO2 93.00%. Uop: 2450 Drains: L groin - 65, R groin - 45, R thigh - 15, L thigh - 75 (serosanguinous) Gen: NAD Resp: unlabored CV: RRR Abd: soft, appropriately tender, umbilicus viable, incision intact, no palpable fluid collections Ext: thighs soft, incisions intact, no palpable fluid collections A/P: abdominal and thigh lipodystrophy s/p abdominoplasty, thighplasty and liposuction POD#2 - pain control still an issue - having difficulty getting out of bed - increased ultram today - still nauseated and uncomfortable when standing - added zofran for antiemetic - regular diet - keep waist flexed when in bed and ambulating - ambulate as tolerated - compression garment at all times * Carolina Matthew RN - 06/20/2014 7:44 PM EDT I assumed care of this patient from 1630 to 1900. I agree with the previous nurse's assessment. Patient denied any chest pain or shortness of breath. Reported some nausea after ambulation. Vital signs stable. Alves draining clear yellow urine. Patient reported pain of 8/10, tramadol PRN administered with moderate effect. ANJEL drains draining small amounts of serosanguinous fluid. Please see flowsheet for full assessment. * Rita Moser RN - 06/20/2014 1:59 PM EDT Patient arrived to floor via bed from [facility]. Patient A&O x 3, lungs clear, heart rate regular. Patient has hypoactive bowel sounds and stats their last BM was on 06/20/14. Patient has transverse incision with small area of dried drainage. Compression garmet in place. Patient has 4 ANJEL drains with small amounts of sanguinous drainage, left groin, right groin,left upper thigh, right upper thigh. Patient states their pain level is 5/10. Patient denies chest pain, shortness of breath, numbness or tingling. Patient oriented to room, call persaud, IS. RN will monitor patient. RITA MOSER RN * Patrick Casillas RN - 06/20/2014 10:34 AM EDT PT ambulated in hallway twice, taking about 15 steps each time. Pt reported significant increase inpain with each ambulation. Alves catheter remains in place, as pt cannot yet ambulate down the hallto the bathroom. Will continue to monitor. * Quinn Swann MD - 06/20/2014 7:59 AM EDT Plastic Surgery Progress Note S: nausea initially which worsened when she tried to use ingot weigher Still uncomfortable and taking tylenol Tolerating sips, no nausea/vomiting at this time Not out of bed yet O: Blood pressure 106/69, pulse 99, temperature 37.3 ??C (99.1 ??F), temperature source Oral, resp.rate 16, height 151.8 cm (4' 11.75), weight 82.555 kg (182 lb), SpO2 98.00%. Uop: 1200 Drains: L abd: 65, R abd: 85, R thigh: 10, L thigh: 15 (serosanguinous) Gen: NAD Resp: unlabored CV: RRR Abd: soft, appropriately tender, umbilicus viable, dressings intact, no palpable fluid collections Ext: thighs soft, dressings intact, no palpable fluid collections A/P: abdominal and thigh lipodystrophy s/p abdominoplasty, thighplasty and liposuction POD#1 - regular diet - tylenol and ultram for pain - keep waist flexed when in bed and ambulating - remove alves catheter - ambulate as tolerated - compression garment at all times * Flaca Vásquez RN - 06/19/2014 8:20 PM EDT Pt arrived to the floor via bed. Pt is very drowsy but arouses to voice. Pt denied pain or nausea at this time. Dressings are CD&I. Drains are intact and draining small amount of sanginous fluid.Alves catheter intact and draining clear yellow urine. VS WNL. Will continue to monitor. * Latoya Lozano MD - 06/19/2014 8:07 PM EDT Post-op Check Christy Anne 06/19/2014 S: Pt was seen and examined. Pain well controlled. Denies nausea and vomiting. Fairly sleepy from pain meds. O: Filed Vitals: 06/19/141999 BP: 114/74 Pulse: 70 Temp: Resp: 15 Intake/Output Summary (Last 24 hours) at 06/19/142007 Last data filed at 06/19/141999 Gross per 24 hour Intake 5300 ml Output 1595 ml Net 3705 ml General: NAD, A/O x 3 HEENT: NC/AT Chest: CTA b/l, no w/r/r Cardiac: RRR Abdomen: soft, NT/ND, benign Extremity: no c/c/e Incision: Abdominal incision with no soak through dressing. Bilateral thigh incision site dressing c/d/i. No evidence of hematoma/seroma/infection A/P: Christy Anne is a 49 y.o. female patient s/p abdominoplasty and b/l thighplasty 1. Pain- controlled 2. Nausea- denies 3. Specific c/o- none 4. Volume status- Urine output adequate, continue with IVF, will monitor 5. DVT prophylaxis- SCDs Latoya Lozano MD, Pager [phone] * Melissa Campbell RN - 06/19/2014 7:08 PM EDT 0-Handoff report received from Sophie Farmer Pt resting comfortably, denies pain or n/v. [address] draining scant amount of serosanguinous drainage. Thigh and abdomen compression wear in place. VSS. 1944- Pt meets PACU discharge criteria. Handoff report given to Flaca in [facility]. * Sophie Grossman RN - 06/19/2014 6:52 PM EDT 1820 - admitted post procedure. Remains sedated. Attempts to remove nasal airway. Does not open eyes to name or command. Reassured. 1830 - nasal airway removed without incidence. Remains sleepy. Opens eyes briefly to name. No c/o Nausea. documented in this encounter H&P Notes * Quinn Swann MD - 06/19/2014 11:21 AM EDT 24 hour interval history and physical exam: Hannah Ling's condition unchanged since H&P originally performed 49 y/o female presents with massive weight loss after gastric sleeve procedure. She is unhappy withher appearance due to the excess skin of her abdomen and thighs. No new medications or diagnoses. PE: Blood pressure 120/76, pulse 65, temperature 36.5 ??C (97.7 ??F), temperature source Temporal, resp. rate 16, height 151.8 cm (4' 11.75), weight 82.555 kg (182 lb), SpO2 100.00%. Gen: NAD Resp: CTAB CV: RRR Abd: no active rashes, excess upper abdominal fullness, lipodystrophy inferiorly Thighs: significant lipodystrophy A/P: lipodystrophy after massive weight loss - for abdominoplasty and thighplasty/thigh liposuction today - risks, benefits, and alternatives discussed - risks include pain, bleeding, infection, scar, asymmetry, seroma, hematoma, skin/umbilical loss, delayed wound healing, prolonged swelling, injury to adjacent structures, and need for further surgery - she understands and wishes to proceed documented in this encounter Miscellaneous Notes * Miscellaneous - Provider, Scanning - 06/23/2014 10:46 AM EDT * Miscellaneous - Provider, Scanning - 06/23/2014 10:33 AM EDT * Discharge Summary - Raegan Mosquera PA - 06/22/2014 7:24 AM EDT Discharge Summary Patient Name: Hannah Ling Patient Age: 49 y.o. Language: Maltese Race: White Ethnicity: Not nor Admit date: 06/19/2014 Discharge date: 06/22/2014 Attending Physician: Hiram Nascimento MD Discharge Physician: same Discharge Diagnoses (Hospital Problems) and Secondary Diagnoses (Chronic Problems): Abdominal pannus, thigh lipodystrophy Active Non-Hospital Problems Diagnosis ??? Abdominal pannus ??? Breast hypertrophy ??? Lipodystrophy Operations/Major Procedures: Procedure(s): ABDOMINOPLASTY EXC,W/ UMBILICAL TRANSPOSITION, FASCIAL PLICATION EXCISION EXCESSIVE SKIN AND TISSUE-THIGH SUCTION ASSISTED LIPECTOMY, LOWER EXTREMITY-HIRAL 06/19/2014 History of Presentation (from Dr. Nascimento's 04/15/14 note): Hannah Ling is a 49 y.o. female [...] loss. She previously underwent bariatric surgery in [place] and remains in the program. She broughther labs with her today which all showed normal results. Hospital Course: Patient was admitted electively to [facility] [place] the same day surgery program and underwent the above procedure. She tolerated surgery well and was tranferred from the PACU to the general floor in good condition a few hours after surgery. Patient's hospital course was uncomplicated. She remained afebrile, with stable vital signs throughout her hospital stay. Today, on POD# 3 she has met all criteria for discharge home: her pain is well controlled with medications by mouth, she is tolerating a regular diet, is voiding spontaneously without difficulties, and is up and ambulating without complications. She has been deemed safe for discharge. Vital Signs at Discharge: Weight: Wt Readings from Last 1 Encounters: 06/20/14 80.287 kg (177 lb) Height: Ht Readings from Last 1 Encounters: 06/20/14 149.9 cm (4' 11) BMI: Body mass index is 35.73 kg/(m^2). Last value Range last 24 hrs Temperature Temp: 36.9 ??C (98.4 ??F) Temp: [36.7 ??C (98.1 ??F)-37.1 ??C (98.8 ??F)] Heart Rate Heart Rate: 113 Heart Rate: [94-113] Blood Pressure BP: 108/64 mmHg BP: (88-108)/(50-64) Respiratory Rate Resp: 18 Resp: [16-18] SpO2 SpO2: 90 % SpO2: [90 %-96 %] Exam at Discharge: General: NAD CV: RRR Pulm: CTAB Abd: + BS, soft, binder in place, appropriately tender Incision: c/d/i Ext: warm, well perfused, no edema Functional and Cognitive Status: Ambulating and cognitively intact. Important Studies and Lab Data: Lab Results Component Value Date WBC 12.1* 06/19/2014 RBC 3.95 06/19/2014 HGB 11.8 06/19/2014 HCT 35.2 06/19/2014 MCV 89.1 06/19/2014 MCH 29.9 06/19/2014 MCHC 33.5 06/19/2014 PLATELET 134* 06/19/2014 RDWCV 12.5 06/19/2014 Studies: None Pending Studies and Lab Data: No current labs Discharge Conditions/Prognosis: Stable Discharge to: Home Updated Allergies/ADRs: Allergies Allergen Reactions ??? Latex Other (See Comments) Localized blister/swelling/open skin ??? Meclizine Other (See Comments) unresponsive ??? Tegaderm (Transparent Dressings) Rash Raw skin instantly and hives Immunizations Given this Hospitalization: There is no immunization history on file for this patient. Discharge Medications: Your Medications As of 06/22/2014 10:11 AM New Medications Dose Details acetaminophen 500 mg Tab Commonly known as: TYLENOL Take 2 tablets by mouth every 6 hours as needed for Pain (for MODERATE pain). 1000 mg Refills: 0 docusate sodium 100 mg Cap Commonly known as: COLACE Take 1 capsule by mouth 2 times daily. 100 mg Refills: 0 traMADol 50 mg Tab Commonly known as: ULTRAM Take 1-2 tablets by mouth every 4 hours as needed for Pain. 50-100 mg Quantity: 60 tablet Refills: 0 Continued medications, unchanged Dose Details ADVAIR DISKUS 250-50 mcg/dose Dsdv Inhale 1 puff into the lungs every 12 hours. Generic drug: fluticasone-salmeterol 1 puff Refills: 0 Cholecalciferol (Vitamin D3) 2,000 unit Cap Take by mouth. Refills: 0 fluticasone 50 mcg/actuation Spsn Commonly known as: FLONASE 1 spray daily. 1 spray Refills: 0 montelukast 10 mg Tab Commonly known as: SINGULAIR Take 10 mg by mouth nightly. 10 mg Refills: 0 Wabytwozxqbgg-Ei-Ggcv-Minerals Tab Take by mouth. Women's one a day gummy Refills: 0 omeprazole 40 mg Cpdr Commonly known as: PRILOSEC Take 40 mg by mouth daily. 40 mg Refills: 0 SUPER B COMPLEX ORAL Take by mouth. Refills: 0 ursodiol 300 mg Cap Commonly known as: ACTIGALL Take 300 mg by mouth 2 times daily. Indications: Cholelithiasis Prevention 300 mg Refills: 0 Smoking Status at Discharge: History Smoking status ??? Never Smoker Smokeless tobacco ??? Never Used Instructions Given to Patient at Discharge: Patient Instructions During the first 1 to 3 weeks, expect to feel tired from the anesthesia and in general, due to the healing process. Rest frequently during the day, and limit visitors until you feel more up to it. Altered sensation (such as shooting or burning pain) or numbness is common after surgery. Normal ornear normal sensation should return within a few months but some areas may stay numb permanently. You will be able to return to work in 4-6 weeks. You will not be able to lift more than 5 pounds for 6 weeks and no more than 10- 20 pounds for 3 months. No strenuous exercise (tennis, aerobics, jogging) for 3 months. Feel free to walk as much as you want. Walking improves circulation, respiratory function and healing. You will not be able to drive for 2-3 weeks or while taking you pain medication. You may wear your safety belt if you place a small pillow over your abdominal incision. No sexual activity for 6 weeks. No smoking for at least 2 weeks following your surgery. POSTOPERATIVE DRAIN AND INCISION CARE Your hospital nurse will review your drain care. You will learn how to strip, measure, and record the total amount of fluid from each drain. Call the clinic at [phone] and schedule an appointment with the nurses to have your drains removed when the drainage is 30cc or less in a 24 hour period for 2 days in a row. Note: Generalized abdominal swelling above the incision may last for several weeks to months due totissue fluid build-up. You may shower 48 hours after surgery. Do not take a bath or use a hot tub until your skin is completely healed. To reduce the strain on your incision, you should remain in a flexed/recliner chair position for about 5 days- this may take longer in some instances so let your body be your guide. You may remove your dressings after 48 hours. If you feel more comfortable with dressings under thebinder, then you may replace them to suit your comfort needs. If present, nonabsorbable stitches are removed in 2 weeks. Spitting sutures: Occasionally an area of redness and tenderness develops where a dissolving stitchbecomes irritated and pushes to the surface. If this occurs, it is not an emergency. You may clip the stitch with a clean scissor or call for an appointment with a nurse. No tanning on incision lines for at least 6 months to minimize scarring. No over the counter lotions, solutions, or herbal preparations on your incisions unless directed byyour doctor. You will be provided with an abdominal binder or girdle. Wear it 24 hours a day for 4 to 6 weeks, removing it briefly to shower. If any of these occur, contact your doctor right away - 1) Signs of infection: A temperature over 100.4'F or 38'C. Redness or warmth spreading away from the incision lines after the first 48 hours. Yellow pus-like or foul smelling drainage larger than dime size from the incisions or drainage sites. 2) Seromas/Hematoma: Before or after your drains are removed, if you notice localized swelling thiscould be a collection of fluid under the skin at or near the incision site. 3) Increased pain or discomfort that is not relieved by your pain medicine. During office hours: Sunday through Sunday 8 am to 5 pm Call [phone] On weekends or after hours: Call [phone] and ask the brazing machine operator helper to page the Plastic Surgery Resident bulk station agent. Prescription Line: Call the line at [phone] from 8am-4pm Sunday through Sunday. Narcotic renewals will not be honored after hours or on weekends. Make your request a few days before you run out as it make take up to 24 hours for physician approval. General Instructions None Future Appointments and Orders Future Appointments: Provider: Department: Dept Phone: Center: 07/02/2014 11:15 AM Varsha Lima APRN Plastic Surgery [phone] [facility] Follow-Up: Future Appointments Date Time Provider Department Center 07/02/2014 11:15 AM Varsha Lima APRN [facility] Primary Care Provider: AVERY ACBALLERO MD [phone] Follow-up Recommendations for Providers: Please see discharge instructions. Call your doctor if: Please call your doctor immediately or go to an Emergency Department if you notice worsening pain not controlled by pain medications, uncontrolled headache, vision changes, chest pain, difficulty breathing, persistent nausea and vomiting, new redness or swelling in any extremities, new onset weakness or changes in sensation, or for any fevers greater than 101.3 F. Your care was managed by the Plastic SurgeryTeam at [facility]. If you haveany questions or concerns, please feel free to contact us. Provider Contact Information: Plastic Surgery Clinic: [facility] (after business hours): * Plan of Care - Akash Huertas RN - 06/21/2014 10:36 AM EDT Problem: Pressure Ulcer Risk (Using Colin Scale) (Adult, Obstetrics, Pediatric) Intervention: Pressure Reduction Techniques Pt. reminded that immobility may lead to impaired circulation to localized tissue thus increasing the likelihood of tissue injury. Pt taught to be cognizant of this danger and encouaged to spend lesstime in bed, change positions occasional while sitting, and ambulate frequently when able. * Plan of Care - Akash Huertas RN - 06/21/2014 10:35 AM EDT Problem: Pain, Acute (Adult, Obstetrics) Intervention: Pain Management Interventions Communication risk factor: Pt. teaching done with regard to communication between staff and self to optimize pain control. Information provided on the following topics: Medications commonly used to maximize post-op comfort, factors that increase and/or decrease pain control and the importance of pain awareness and timing of medication delivery. * Plan of Care - Akash Huertas RN - 06/21/2014 10:35 AM EDT Problem: Fall/Trauma/Injury Risk (Adult, Obstetrics) Intervention: Sensory Stimulation Regulation Pt.'s room organized to minimize risk of injury secondary to falls. Obstacles in pt. pathway to bathroom and chair removed. Call persaud and belongings placed within reach at all times. Instructions given with regard to notifying nurse when pt. is about to ambulate so nurse may provide assistance if needed. * Plan of Care - Daniela Warner RN - 06/21/2014 6:59 AM EDT Problem: Fall/Trauma/Injury Risk (Adult, Obstetrics) Goal: Absence of Trauma/Injury/Falls Patient will demonstrate the desired outcomes. Outcome: Present (see interventions, notes) Patient remains free of fall/injury this shift. Head of bed maintained at 30 degrees or higher. Patient ambulating to bathroom and nurse's pod with one person assist and walker. Patient has compression garment to abdomen and thigh. Patient also has four ANJEL drains with small amounts of sanguinous output. Patient calling for assistance when needed. Nonskid stockings on when out of bed. Environmental modifications and fall reduction measures in place. Clutter free environment maintained. Call light within reach at all times. Masimo on. Will continue to monitor. Problem: Pain, Acute (Adult, Obstetrics) Goal: Acceptable Pain Control/Comfort Level Patient will demonstrate the desired outcomes. Outcome: Present (see interventions, notes) Discussed pain management with patient. Patient tolerating PRN Tramadol and PRN Tylenol. Patient states that the pain level is tolerable at this time. See MAR for pain medication given. Call persaud within reach. Will continue to monitor patient pain. * Plan of Care - Rita Moser RN - 06/20/2014 2:41 PM EDT Problem: Pressure Ulcer Risk (Using Colin Scale) (Adult, Obstetrics, Pediatric) Goal: Identify Signs and Symptoms and Related Risk Factors Signs and symptoms and related risk factors are identified upon initiation of Human Response Clinical Practice Guideline (CPG) Outcome: Therapy, goal not met Pt's skin remains intact at this time with no reddened areas. Patient has 4 ANJEL drains and a compression garmet to abdomen, surrounding skin c/d/i. Dressing to transverse abdomen c/d/i. Pt currently repositioning self in bed every 2 hrs. Pt verbalizes understanding to reposition self every 2 hrs to prevent skin breakdown and alert nurse when help is needed to do so. Will continue to monitor. Problem: General Plan of Care Goal: Plan of Care Review Outcome: Therapy, goal not met Patient has not met d/c goals at this time. Patient arrived to floor from [facility] due to inability to control pain. Patient refuses to have alves removed until pain is more controlled while getting in/out of bed. Will continue to monitor and help patient reach d/c goals. Problem: Fall/Trauma/Injury Risk (Adult, Obstetrics) Goal: Identify Signs and Symptoms and Related Risk Factors Signs and symptoms and related risk factors are identified upon initiation of Human Response Clinical Practice Guideline (CPG) Outcome: Therapy, goal not met Patient remains free of falls during this hospitalization. Patient is ambulating with one assist. Patient is unable to mobilize very far due to pain while getting in/out of bed and nausea. Patient has a call persaud within reach, and aware to alert RN when they are wanting to mobilize. Problem: Pain, Acute (Adult, Obstetrics) Goal: Acceptable Pain Control/Comfort Level Patient will demonstrate the desired outcomes. Outcome: Therapy, goal not met Pt states her pain is currently a 9/10. Pt taking tylenol and tramadol PRN for pain control, see MAR for medication given. Patient is unable to tolerate narcotics for pain relief due to nausea. Pt verbalizes understanding to inform nurse if pain increases, becomes uncontrolled, or changes in characteristic. Will continue to monitor. * Op Note - Quinn Swann MD - 06/19/2014 8:50 PM EDT [facility] [place] Patient Name: Hannah Ling : [id number] MR#: [id number] Case Date: 06/19/2014 Surgeon: Surgeon(s) and Role: * Hiram Nascimento MD - Primary * Quinn Swann MD - Resident-Surgeon Chief * Yeyo Hollins MD - Resident-Surgeon Alfredito Preoperative diagnosis: Abdominal pannus, bilateral thigh lipodystrophy Postoperative diagnosis: Abdominal pannus, bilateral thigh lipodystrophy Procedure(s): ABDOMINOPLASTY EXC,W/ UMBILICAL TRANSPOSITION, FASCIAL PLICATION EXCISION EXCESSIVE SKIN AND TISSUE-THIGH SUCTION ASSISTED LIPECTOMY, LOWER EXTREMITY-HIRAL Anesthesia: General Estimated Blood Loss: 700 cc Drains: edgar x4 Disposition: awakened from anesthesia, extubated and taken to the recovery room in a stable condition, having suffered no apparent untoward event. Condition: doing well without problems (Please see the Surgical Encounter Summary for any Implant and Specimen details pertinent to this patient.) HPI/Surgical Indications: 49 y/o female with massive weight loss after gastric sleeve presents for improvement of her abdominal and thigh contour. Procedure Description: Informed consent was obtained. The risks, benefits, and alternatives were discussed. The risks include pain, bleeding, infection, scar, asymmetry, seroma, hematoma, skin/umbilical loss, delayed woundhealing, injury to adjacent structures, prolonged leg swelling, contour irregularity, and need for further surgery. She understands and wishes to proceed. She was marked for W- abdominoplasty and extended thighplasty in standing position. She was taken to the operating room and placed in supine position. Adequate endotracheal anesthesia was then obtained. Her abdomen and thighs were prepped and draped in sterile fashion with betadyne. Time-out was performed, confirming the patient's name, medical record number, birthdate, and procedure. Ancef 2 g IV was given preoperatively. Stab incisions were made along her planned lower abdominal incisions. 1 L of tumescent (saline, lidocaine, epinephrine) was infiltrated into the flanks and lateral thighs. 300 cc was removed from each side using a 5 mm cannula with power-assisted liposuction. Her umbilicus was elevated with single hooks. A thi shaped incision was made around her umbilicus. The incision was deepened to the fascia with jm scissors, radiating outward to capture as many perforators as possible. Her lower abdominal incision was then made, and a superior flap was elevated in the suprafascial plane to the costal margins and xiphoid. Plication was performed in 2 layers with running 0-PDS in the anterior rectus sheath and mid-external oblique fascia bilaterally. The abdominal wound was irrigated with saline,and hemostasis was obtained. The bed was flexed 20 degrees. The superior flap was transposed acrossthe inferior incision, and tailor-tacked to ensure tension free closure. The redundant abdominal pannus was excised and sent to pathology. 19 Fr edgar drains were brought out laterally with the left drain placed in the lower abdomen and right drain, supraumbilically. The umbilicus was transposed across the superior flap, and a thi-shaped incision was made. The umbilicus was brought out through the new opening and secured with 3-0 vicryl deep dermal sutures and running 4-0 chromic gut. The abdominal incision was closed with 0-vicryl in Alexy's fascia, 3-0 vicryl/insorb in the deep dermis,and running 3-0 monocryl. Attention was then turned toward the thighs. An incision was made, following the tail of the fish-design and anterior incision. We elevated just in the subcutaneous tissues overlying the femoral triangle to preserve the lymphatics. In the medial thigh, we transitioned to a sub-Scarpal plane of dissection and elevated anteriorly to posteriorly. The posterior flap was tranposed over the anterior incision, and tailor-tacked to ensure tension free closure. The redundant thigh tissue was excised andsent to pathology. The wound was copiously irrigated, and hemostasis was obtained. 15 Fr edgar drains were placed in the wound bed. The incision was closed with Aberdeen's technique of securing the oliva perficial fascia to the Colles' fascia in the groin with 0-vicryl. The superficial fascia in the thigh was also closed with 0-vicryl. 3-0 vicryl deep dermal sutures and running 3-0 monocryl subcuticular sutures finished the closure. Dermaflex was applied to all the incisions. Needle, sponge, and instrument counts were correct. There were no intraoperative complications. Thepatient was extubated and taken to the PACU in stable condition. * Brief Op Note - Yeyo Hollins MD - 06/19/2014 5:48 PM EDT Brief Operative Note Patient Name: Hannah Ling : [id number] MR#: [id number] Case Date: 06/19/2014 Surgeon: Surgeon(s) and Role: * Hiram Nascimento MD - Primary * Quinn Swann MD - Resident-Surgeon Chief * Yeyo Hollins MD - Resident-Surgeon Alfredito Preoperative diagnosis: Abdominal pannus Postoperative diagnosis: Abdominal pannus Procedure(s): ABDOMINOPLASTY EXC,W/ UMBILICAL TRANSPOSITION, FASCIAL PLICATION EXCISION EXCESSIVE SKIN AND TISSUE-THIGH SUCTION ASSISTED LIPECTOMY, LOWER EXTREMITY-HIRAL Anesthesia: General Findings: skin redundancy Complications: none Fluids: 5.3 L crystalloids Estimated Blood Loss: 700cc Drains: 19F edgar x2 15F edgar x2 Disposition: awakened from anesthesia, extubated and taken to the recovery room in a stable condition, having suffered no apparent untoward event. Condition: doing well without problems (Please see the Surgical Encounter Summary for any Implant and Specimen details pertinent to this patient.) * OR Attestation - Hiram Nascimento MD - 06/19/2014 5:44 PM EDT Attestation: Case Date: 06/19/2014 I was present and I participated during the entire procedure except for the opening and closing which overlapped with the opening or closing of another case. The overlapping portions were non-tian portions and I was immediately available HIRAM NASCIMENTO MD 06/19/2014 * Miscellaneous - Provider, Scanning - 06/19/2014 12:22 PM EDT documented in this encounter Plan of Treatment Not on file documented as of this encounter Procedures Procedure Name Priority Date/Time Associated Diagnosis Comments HEMOGRAM Routine 06/19/2014 6:30 PM EDT DIFFERENTIAL, AUTOMATED Routine 06/19/20 14 6:30 PM EDT CBC (WITH DIFF) Routine 06/19/2014 6:30 PM EDT ABO/RH TYPING Routine 06/19/2014 1:10 PM EDT ANTIBODY SCREEN Routine 06/19/2014 1:10 PM EDT TYPE AND SCREEN ([facility]/LENO) Routine 06/19/2014 1:10 PM EDT SUCTION ASSISTED LIPECTOMY, LOWER EXTREMITY-HIRAL (WRVU 15.59) 06/19/2014 11:58 AM EDT Abdominal pannus EXCISION EXCESSIVE SKIN AND TISSUE-THIGH (WRVU 12.85) 06/19/2014 11:58 AM EDT Abdominal pannus ABDOMINOPLASTY EXC,W/ UMBILICAL TRANSPOSITION, FASCIAL PLICATION (WRVU 17.04) 06/19/2014 11:58 AM EDT Abdominal pannus SUCTION ASSISTED LIPECTOMY, LOWER EXTREMITY, HIRAL Routine 06/19/2014 9:30 AM EDT EXCISION EXCESSIVE SKIN AND TISSUE-THIGH Routine 06/19/2014 9:30 AM EDT POCT HGB STAT 06/19/2014 documented in this encounter Results * (ABNORMAL) Differential, Automated (06/19/2014 6:30 PM EDT) Neutrophil % 87.9 % CERNER MILLENNIUM Neutrophil Absolute 10.64(H) 1.50 - 6.30 x10(3)/mc L CERNER MILLENNIUM Lymph % 7.9 % CERNER MILLENNIUM Lymphocytes Abs 1.0 1.0 - 3.6 x10(3)/mc L CERNER MILLENNIUM Monocyte % 3.9 % CERNER MILLENNIUM Monocyte Abs 0.5 0.2 - 1.0 x10(3)/mc L CERNER MILLENNIUM Eos % 0.0 % CERNER MILLENNIUM Eosinophils Abs 0.0 0.0 - 0.5 x10(3)/mc L CERNER MILLENNIUM Basophil % 0.1 % CERNER MILLENNIUM Baso Absolute 0.0 0.0 - 0.2 x10(3)/mc L CERNER MILLENNIUM Immature Gran % 0.20 % CERN ER MILLENNIUM Comment: Immature granulocytes(IG's)percentage and absolute count will include metamyelocytes, myelocytes, and promyelocytes. Blood smears from CBCs yielding IG's will be scanned manually for concordance. If this scan disagrees with the automated IG or if promyelocytes are noted, a manual differential will be performed. Immature Gran Absolute 0.03 0.00 - 0.05 x10(3)/mc L CERNER MILLENNIUM Blood specimen (specimen) 06/19/2014 6:30 PM EDT 06/19/2014 7:11 PM EDT Narrative Resulting Agency Comment Spec In Lab Hiram Nascimento MD HEMATOLOGY ORDERABLE S CERNER MILLENNIUM * (ABNORMAL) Hemogram (06/19/2014 6:30 PM EDT) White Blood Cell 12.1(H) 4.0 - 10.0 x10(3)/mc L CERNER MILLENNIUM Red Blood Cell 3.95 3.93 - 5.22 x10(6)/mc L CERNER MILLENNIUM Hemoglobin 11.8 11.2 - 15.7 gm/dL CERNER MILLENNIUM Hematocrit 35.2 34.0 - 45.0 % CERNER MILLENNIUM Mean Cell Volume 89.1 79.0 - 94.0 fL CERNER MILLENNIUM Mean Cell Hemoglobin 29.9 26.6 - 32.2 pg CERNER MILLENNIUM Mean Cell Hemoglobin Concentration 33.5 32.0 - 36.5 gm/dL CERNER MILLENNIUM Platelet 134(L) 145 - 370 x10(3)/mc L CERNER MILLENNIUM RDW Standard Deviation 40.3 35.0 - 46.0 fL CERNER MILLENNIUM RDW coefficient of variation 12.5 10.9 - 14.4 % CERNER MILLENNIUM Mean Platelet Volume 12.1(H) 9.0 - 12.0 fL CERNER MILLENNIUM Blood specimen (specimen) 06/19/2014 6:30 PM EDT 06/19/2014 7:11 PM EDT Narrative Resulting Agency Comment Spec In Lab Hiram Nascimento MD HEMATOLOGY ORDERABLE S SENA SESAY * Antibody screen (06/19/2014 1:10 PM EDT) Pathologist [facility] Ab Screen Interp Negative SENA VIDALENNIUM Expires at 2359 on: [id number] SENA VIDALENNIUM Blood specimen (specimen) 06/19/2014 1:10 PM EDT 06/19/2014 1:10 PM EDT Narrative Resulting Agency Comment Spec In Lab Hiram Nascimento MD BLOOD BANK LAB ORDER GARETH SENA SESAY * ABO/Rh Typing (06/19/2014 1:10 PM EDT) ABORH Type O Pos SENA SESAY Blood specimen (specimen) 06/19/2014 1:10 PM EDT 06/19/2014 1:10 PM EDT Narrative Resulting Agency Comment Spec In Lab Hiram Nascimento MD BLOOD BANK LAB ORDER GARETH SENA SESAY * POCT HGB (06/19/2014) POC Hemoglobin 14.2 g/dL Hiram Nascimento MD POINT OF CARE TEST O RDERABLES documented in this encounter Visit Diagnoses Not on filedocumented in this encounter Administered Medications Inactive Administered Medications - up to 3 most recent administrations Medication Order MAR Action Action Date Dose Rate Site acetaminophen (TYLENOL) tablet 1,000 mg 1,000 mg, Oral, EVERY 6 HOURS PRN, Starting on Sun06/19/14 at 2019, Until 06/22/14 at 1531, Pain, for MODERATE pain, Do not exceed 4,000 mg in 24 hours, Routine Given 06/21/2014 4:28 PM EDT 1,000 mg Given 06/21/2014 10:08 AM EDT 1,000 mg Given 06/21/2014 4:42 AM EDT 1,000 mg cholecalciferol (Vitamin D3) tablet 2,000 Units 2,000 Units, Oral, DAILY, First dose on 06/21/14 at 1030, Until Discontinued, Home med, Routine Given 06/22/2014 8:09 AM EDT 2,000 Units Given 06/21/2014 12:01 PM EDT 2,000 Units docusate sodium (COLACE) capsule 100 mg 100 mg, Oral, 2 TIMES DAILY, First dose on Sun06/19/14 at 2100, Until Discontinued, Routine Given 06/22/2014 8:02 AM EDT 100 mg Given 06/21/2014 9:00 PM EDT 100 mg Given 06/21/2014 9:14 AM EDT 100 mg enoxaparin (LOVENOX) injection 40 mg 40 mg, Subcutaneous, DAILY, First dose on 06/20/14 at 0600, Until Discontinued, Routine Given 06/22/2014 8:0 2 AM EDT 40 mg Given 06/21/2014 9:17 AM EDT 40 mg Given 06/20/2014 9:00 AM EDT 40 mg esomeprazole (NexIUM) capsule 40 mg 40 mg, Oral, DAILY, First dose on Sun06/19/14 at 2100, Until Discontinued, Therapeutic interchange for home omeprazole, Routine Given 06/22/2014 8:01 AM EDT 40 mg Given 06/21/2014 9:15 AM EDT 40 mg Given 06/20/2014 9:05 AM EDT 40 mg fluticasone (FLONASE) 50 mcg/actuation nasal spray 1 spray 1 spray, Each Nare, DAILY, First dose on Sun06/19/14 at 2045, Until Discontinued, Routine Given 06/22/2014 8:02 AM EDT 1 spray Given 06/21/2014 9:16 AM EDT 1 spray fluticasone-salmeterol (ADVAIR HFA) 115-21 mcg/actuation inhaler 2 puff 2 puff, Inhalation, EVERY 12 HOURS, First dose on Sun06/19/14 at 2045, Until Discontinued, Rinse mouth after administration Therapeutic interchange from Advair 250/50 Given 06/22/2014 8:02 AM EDT 2 puffs Given 06/21/2014 8:45 PM EDT 2 puffs Given 06/21/2014 9:16 AM EDT 2 puffs HYDROmorphone (DILAUDID) 1 mg/mL PATTERN AND CHAIN MAKER 30 mL Intravenous, PATTERN AND CHAIN MAKER ONLY, Starting on Sun06/19/14 at 1845, Until 06/20/14 at 0759, Recovery (Recovery-Hospital Unit) New Syringe/Cartridge 06/19/2014 6:42 PM EDT 30 mg lactated ringers infusion 150 mL/hr, Intravenous, CONTINUOUS, Starting on Sun06/19/14 at 1845, Until 06/20/14 at 0759, Recovery (Recovery-Hospital Unit) New Bag 06/20/2014 1:57 AM EDT 150 mL/hr 150 mL/hr New Bag 06/19/2014 6:40 PM EDT 150 mL/hr 150 mL/hr lactobacillus (BACID) tablet 1 tablet 1 tablet, Oral, DAILY, First dose on Sun06/19/14 at 2130, Until Discontinued, Routine Given 06/22/2014 8:01 AM EDT 1 tablet Given 06/21/2014 9:14 AM EDT 1 tablet montelukast (SINGULAIR) tablet 10 mg 10 mg, Oral, NIGHTLY, First dose on Sun06/19/14 at 2130, Until Discontinued, Routine Given 06/21/2014 9:0 0 PM EDT 10 mg Given 06/21/2014 12:00 AM EDT 10 mg multivitamin (THERAGRAN) tablet 1 tablet 1 tablet, Oral, DAILY, First dose on Sun06/21/14 at 1030, Until Discontinued Given 06/22/2014 8:01 AM EDT 1 table t Given 06/21/2014 12:01 PM EDT 1 tablet ondansetron (ZOFRAN) injection 4 mg 4 mg, Intravenous, EVERY 30 MIN PRN, 2 doses, Starting on Sun06/19/14 at 2019, Until 06/20/14 at 0606, Nausea, May repeat dose once in 30 minutes if no relief from previous dose., Recovery (Recovery-Hospital Unit) Given 06/20/2014 6:06 AM EDT 4 mg Given 06/19/2014 8:49 PM EDT 4 mg ondansetron (ZOFRAN) tablet 4 mg 4 mg, Oral, EVERY 8 HOURS PRN, Starting on Sun06/21/14 at 0836, Until 06/22/14 at 1531, Nausea, Routine Given 06/21/2014 8:55 AM EDT 4 mg prochlorperazine (COMPAZINE) injection 5 mg 5 mg, Intravenous, EVERY 30 MIN PRN, 2 doses, Starting on Sun06/19/14 at 2019, Until 06/22/14 at 1531, Nausea, May repeat in 30 minutes if no relief from previous dose. HOLD if patient is sedated. Maximum dose is 40 mg in 24 hours., Routine Given 06/19/2014 11:11 PM EDT 5 mg scopolamine (TRANSDERM-SCOP) 1.5 mg patch 1 dose, Starting on Sun06/19/14 at 1146, Until Sun06/19/14 at 1154, VINNYJOLLY GONZALEZR: cabinet override Given 06/19/2014 11:54 AM EDT 1 patch sodium chloride 0.9 % flush 5 mL 5 mL, Intravenous, 2 TIMES DAILY, First dose on Sun06/19/14 at 2100, Until Discontinued, Routine Given 06/22/2014 8:03 AM EDT 5 mLs Given 06/21/2014 9:00 PM EDT 5 mLs Given 06/21/2014 9:31 AM EDT 5 mLs traMADol (ULTRAM) tablet 50 mg 50 mg, Oral, EVERY 6 HOURS PRN, Starting on 06/20/14 at 0759, Until 06/20/14 at 1212, Pain, Routine Given 06/20/2014 9:05 AM EDT 50 mg traMADol (ULTRAM) tablet 50 mg 50 mg, Oral, EVERY 4 HOURS PRN, Starting on 06/20/14 at 1215, Until 06/21/14 at 0928, Pain, Routine Given 06/21/2014 6:15 AM EDT 50 mg Given 06/21/2014 2:06 AM EDT 50 mg Given 06/20/2014 9:59 PM EDT 50 mg traMADol (ULTRAM) tablet 50-100 mg 50-100 mg, Oral, EVERY 4 HOURS PRN, Starting on 06/21/14 at 0950, Until 06/22/14 at 1531, Pain, Routine Given 06/22/2014 12:07 PM EDT 100 mg Given 06/22/2014 8:01 AM EDT 100 mg Given 06/22/2014 3:45 AM EDT 100 mg ursodiol (ACTIGALL) capsule 300 mg 300 mg, Oral, 2 TIMES DAILY, First dose on Sun06/19/14 at 2130, Until Discontinued, Routine Given 06/22/2014 8:02 AM EDT 300 mg Given 06/21/2014 9:00 PM EDT 300 mg Given 06/21/2014 9:14 AM EDT 300 mg documented in this encounter Active and Recently Administered Medications Times are shown in EDT. Scheduled Medication Order 06/20/2014 06/21/2014 06/22/2014 cholecalciferol (Vitamin D3) tablet 2,000 Units (CANCELED) 2,000 Units, Oral, DAILY, First dose on 06/21/14 at 1030, Until Discontinued, Home med, Routine 1201 (Given - Provider: Akash Huertas RN) 0809 (Given - Provider: Latoya Samuels RN) docusate sodium (COLACE) capsule 100 mg 100 mg, Oral, 2 TIMES DAILY, First dose on Sun06/19/14 at 2100, Until Discontinued, Routine 0906 (Given - Provider: Patrick Casillas RN)2221 (Given - Provider: Daniela Warner RN) 0914 (Given - Provider: Akash Huertas RN)2100 (Given - Provider: Reynaldo Naylor RN) 0802 (Given - Provider: Latoya Samuels RN) enoxaparin (LOVENOX) injection 40 mg (CANCELED) 40 mg, Subcutaneous, DAILY, First dose on Sun06/20/14 at 0600, Until Discontinued, Routine 0603 (Hold - Provider: Flaca Vásquez RN - Reason: See comment - Comment: pt will take later)0900 (Given - Provider: Patrick Casillas RN) 0917 (Given - Provider: Akash Huertas RN) 08 (Given - Provider: Latoya Samuels RN) esomeprazole (NexIUM) capsule 40 mg (CANCELED) 40 mg, Oral, DAILY, First dose on Sun06/19/14 at 2100, Until Discontinued, Therapeutic interchange for home omeprazole, Routine 09 (Given - Provider: Patrick Casillas RN) 0915 (Given - Provider: Akash Huertas RN) 0801 (Given - Provider: Latoya Samuels RN) fluticasone (FLONASE) 50 mcg/actuation nasal spray 1 spray (CANCELED) 1 spray, Each Nare, DAILY, First dose on Sun06/19/14 at 2045, Until Discontinued, Routine 0900 (Not Given - Provider: Patrick Casillas RN - Reason: Medication not available) 0916 (Given - Provider: Akash Huertas RN) 0802 (Given - Provider: Latoya Samuels RN) fluticasone-salmeterol (ADVAIR HFA) 115-21 mcg/actuation inhaler 2 puff (CANCELED) 2 puff, Inhalation, EVERY 12 HOURS, First dose on Sun06/19/14 at 2045, Until Discontinued, Rinse mouth after administration Therapeutic interchange from Advair 250/50 0845 (Not Given - Provider: Patrick Casillas RN - Reason: Medication not available)2044 (Given - Provider: Daniela Warner RN) 0916 (Given - Provider: Akash Huertas RN)2045 (Given - Provider: Reynaldo Naylor RN) 0802 (Given - Provider: Latoya Samuels RN) lactobacillus (BACID) tablet 1 tablet (CANCELED) 1 tablet, Oral, DAILY, First dose on Sun06/19/14 at 2130, Until Discontinued, Routine 0914 (Given - Provider: Akash Huertas RN) 0801 (Given - Provider: Latoya Samuels RN) montelukast (SINGULAIR) tablet 10 mg (CANCELED) 10 mg, Oral, NIGHTLY, First dose on Sun06/19/14 at 2130, Until Discontinued, Routine 0000 (Given - Provider: Daniela Warner RN - Comment: Missing Med)2100 (Given - Provider: Reynaldo Naylor RN) multivitamin (THERAGRAN) tablet 1 tablet (CANCELED) 1 tablet, Oral, DAILY, First dose on Sun06/21/14 at 1030, Until Discontinued 1201 (Given - Provider: Akash Huertas RN) 0801 (Given - Provider: Latoya Samuels RN) sodium chloride 0.9 % flush 5 mL (CANCELED) 5 mL, Intravenous, 2 TIMES DAILY, First dose on Sun06/19/14 at 2100, Until Discontinued, Routine 0900 (Not Given - Provider: Patrick Casillas RN - Reason: See comment - Comment: IV infusing)2239 (Given - Provider: Daniela Warner RN) 0931 (Given - Provider: Akash Huertas RN)2100 (Given - Provider: Reynaldo Naylor RN) 0803 (Given - Provider: Latoya Samuels RN) ursodiol (ACTIGALL) capsule 300 mg (CANCELED) 300 mg, Oral, 2 TIMES DAILY, First dose on Sun06/19/14 at 2130, Until Discontinued, Routine 0905 (Given - Provider: Patrick Casillas RN) 0001 (Given - Provider: Daniela Warner RN - Comment: Missing Med)0914 (Given - Provider: Akash Huertas RN)2100 (Given - Provider: Reynaldo Naylor RN) 0802 (Given - Provider: Latoya Samuels RN) Continuous Medication Order 06/20/2014 06/21/2014 06/22/2014 lactated ringers infusion (CANCELED) 150 mL/hr, Intravenous, CONTINUOUS, Starting on Sun06/19/14 at 1845, Until 06/20/14 at 0759, Recovery (Recovery-Hospital Unit) 0157 (New Bag - Provider: Flaca Vásquez, RAFAL) PRN Medication Order 06/20/2014 06/21/2014 06/22/2014 acetaminophen (TYLENOL) tablet 1,000 mg 1,000 mg, Oral, EVERY 6 HOURS PRN, Starting on Sun06/19/14 at 2019, Until 06/22/14 at 1531, Pain, for MODERATE pain, Do not exceed 4,000 mg in 24 hours, Routine 0602 (Given - Provider: Flaca Vásquez RN)1411 (Given - Provider: Rita Moser RN)2238 (Given - Provider: Daniela Warner RN) 0442 (Given - Provider: Daniela Warner RN)1008 (Given - Provider: Akash Huertas RN)1628 (Given - Provider: Charlotte Arrington RN) ondansetron (ZOFRAN) injection 4 mg (COMPLETED) 4 mg, Intravenous, EVERY 30 MIN PRN, 2 doses, Starting on Sun06/19/14 at 2019, Until 06/20/14 at 0606, Nausea, May repeat dose once in 30 minutes if no relief from previous dose., Recovery (Recovery-Hospital Unit) 0606 (Given - Provider: Flaca Vásquez RN) ondansetron (ZOFRAN) tablet 4 mg (CANCELED) 4 mg, Oral, EVERY 8 HOURS PRN, Starting on 06/21/14 at 0836, Until 06/22/14 at 1531, Nausea, Routine 0855 (Given - Provider: Akash Huertas, RAFAL) traMADol (ULTRAM) tablet 50 mg (CANCELED) 50 mg, Oral, EVERY 6 HOURS PRN, Starting on 06/20/14 at 0759, Until 06/20/14 at 1212, Pain, Routine 0905 (Given - Provider: Patrick Casillas RN) traMADol (ULTRAM) tablet 50 mg (CANCELED) 50 mg, Oral, EVERY 4 HOURS PRN, Starting on 06/20/14 at 1215, Until 06/21/14 at 0928, Pain, Routine 1220 (Given - Provider: Patrick Casillas RN)1653 (Given - Provider: Carolina Matthew, RAFAL)2159 (Given - Provider: Daniela Warner, RAFAL) 0206 (Given - Provider: Daniela Warner, RAFAL)0615 (Given - Provider: Daniela Warner RN) traMADol (ULTRAM) tablet 50-100 mg 50-100 mg, Oral, EVERY 4 HOURS PRN, Starting on 06/21/14 at 0950, Until 06/22/14 at 1531, Pain, Routine 1009 (Given - Provider: Akash Huertas RN)1522 (Given - Provider: Akash Huertas RN)1935 (Given - Provider: Charlotte Arrington RN)2337 (Given - Provider: Reynaldo Naylor RN) 0345 (Given - Provider: Reynaldo Naylor RN)0801 (Given - Provider: Latoya Samuels, RAFAL)1207 (Given - Provider: Latoya Samuels RN) documented in this encounter Care Teams Scrub Tech Relationship Specialty Start Date End Date Avery Caballero MD [address] [place] [address] PCP - General 04/15/14 documented as of this encounter
--- OUTSIDE RECORDS SUMMARY | 2024-04-08 18:09 | XMS_ITS | Encounter Summary ---
Author Organization [facility] Address [address] [place] [address] Care Team Providers Care Pole Truck Driver Name Role Phone Avery Caballero MD Primary Care Provider [phone] Encounter Details Date Type Department Care Team (Late st Contact Info) Description 02/28/2022 Lab Requisition [facility] Pathology & Laboratory Medicine - [address] [address] Outr Resulting Lab, Provider Social History Tobacco Use Types Packs/Day Years [...] Procedure Name Priority Date/Time Associated Diagnosis Comments CCP ANTIBODIES Routine 02/28/2022 12:45 EDT RHEUMATOID FACTOR Routine 02/28/2022 12: 45 EDT documented in this encounter Results * RHEUMATOID FACTOR (02/28/2022 12:45 EDT) Rheumatoid Factor <8.6 <12.0 IU/mL 02/28/2022 22:43 EDT [facility] Blood VENOUS BLOOD / Unknown 02/28/2022 12:45 EDT 02/28/2022 22:23 EDT Provider Outr Resulting Lab CHEMISTRY & BLOOD GAS ORDERABLES Performing Organization Address City/State/[facility] Co de Phone Number [facility] [address] [place] [address] * CCP ANTIBODIES (02/28/2022 12:45 EDT) CCP Antibodies <2.5 <5.0 U/mL 03/01/2022 9:11 EDT [facility] Blood VENOUS BLOOD / Unknown 02/28/2022 12:45 EDT 02/28/2022 22:23 EDT Provider Outr Resulting Lab IMMUNOLOGY A ND SEROLOGY ORDERABLES Performing Organization Address [facility] Co de Phone Number [facility] [address] [place] [address] documented in this encounter Visit Diagnoses Not on filedocumented in this encounter Care Teams Pole Truck Driver Relationship Specialty Start Date End Date Avery Caballero MD [address] [place] [address] PCP - General 12/20/10 documented as of this encounter
--- OUTSIDE RECORDS SUMMARY | 2024-04-08 18:09 | XMS_ITS | Clinical Summary ---
Author Organization [facility] Address [address] [place] [address] Care Team Providers Care Dehydrator Tender Name Role Phone Avery Caballero MD Primary Care Provider [phone] Allergies Active Allergy Reactions Criticality Noted Date [...] fluticasone (FLONASE) 50 mcg/actuation nasal spray 1 [place] [address] Nasal route 2 times daily. Active [...] very rare use of albuterol Morbid obesity ([facility]) 11/07/2011 Resolved Problems Problem Noted Date Diagnosed Date Resolved Date Pre-operative examination 09/20/2012 Surgical History Surgery Date Site/Laterality Comments HYSTERECTOMY APPENDECTOMY Social History Tobacco Use Types Packs/Day Years Used Date Smoking Tobacco: Never Alcohol Use Standard Drinks/Week Comments No 0 (1 standard drink = 0.6 oz pur e alcohol) Sex and Gender Information Value Date Recorded Sex Assigned at Not on file Gender Identity Not on file Sexual Orientation Not on file Obstetrics History Last Filed Vital Signs Vital Sign Reading [...] 35.66 05/07/2014 1534 EDT Plan of Treatment Health Maintenance Due Date Last Done Comments Asthma Action Plan 1965 Hepatitis C Screen 1965 Lung Function Test (Spirometry) 1965 RSV Immunization ( o r 60+ Years) (1 - 1-dose 60+ series) 2023 COVID-19 Vaccine (2022-24 season) 2023 Advance Directives For more information, please contact: [phone] * Full Code (Latest Code Status on File) Date Activated Date Inactivated Comments 09/20/2012 13:41 09/22/2012 13:57 * Full Code Date Activated Date Inactivated Comments 09/20/2012 6:38 09/20/2012 13:41 Care Teams Dehydrator Tender Relationship Specialty Start Date End Date Avery Caballero MD [address] [place] [id number] [facility] - General 12/20/10
--- OUTSIDE RECORDS SUMMARY | 2024-04-08 18:09 | XMS_ITS | Encounter Summary ---
Author Organization [facility] [place] [address] Care Team Providers Care Toolroom Helper Name Role Phone Avery Caballero MD Primary Care Provider [phone] Reason for Visit * Reason Comments Follow Up Surgery Encounter Details Date Type Department Care Team (Late st Contact Info) Description 08/06/2014 8:15 AM EST Follow-[place] [address] Hiram Nascimento MD [facility] [place] [address] Lipodystrophy; Other specified aftercare following surgery; Abdominal pannus Discharge Disposition: Home Social History Tobacco Use [...] - Inhaled Oxygen Concentration - - Weight 77.1 kg (170 lb) 08/06/2014 8:35 AM EST Height - - Body Mass Index 34.34 06/20/2014 1:20 PM EDT documented in this encounter Progress Notes * Hiram Nascimento MD - 08/06/2014 8:25 AM EST Plastic Surgery Follow Up Note Reason for visit: F/U status post procedure Date of surgery: 06/19/14 Procedure(s): Abdominoplasty, thighplasty Complications: None reported HPI: Hannah is accompanied by her for today's visit. She has been feeling well . She returned to work on Sunday. She states that yesterday her legs swelled up. She also feels that her whole body has swelled today. She reports her weight is up 4 lbs in 2 days. She has surfacing sutures and stables which she removes on her own. She has been wearing her support garment. She has no concerns with her abdominal incision. She denies shortness of breath. Examination: Patient is alert, conversant, comfortable, ambulating Abdominal incision: Well healed , scar is pink and firm Umbilicus viable,Incision well healed and viable Thigh incisions: well healed, surfacing resorbable seng and sutures No signs of infection Bilateral legs edematous, no palpable cord Impression: Hannah Wong is a 49 y.o. female who was seen today for follow-up. She has continued to make healing progress to date. I advised her that the swelling is normal following this procedure. I will have her continue to wear the support garment to help prevent swelling. I will obtain a vascular study to r/o a DVT. I advised her that the surfacing sutures will eventually improve as they dissolve. Photos taken with signed consent Plan: 1. Vascular study 2. Follow up 6 weeks 3. Continue support garment 4. Elevate legs as much as possible 5. Ok to remove any surfacing sutures and stables I, Hannah Roger, am acting as scribe for Dr Nascimento. All work documented was performed by Dr Nascimento. ???I performed the above scribed service and agree with the accuracy of the note?? HIRAM NASCIMENTO MD documented in this encounter Plan of Treatment Not on file documented as of this encounter Results * Duplex Study for DVT, Bilat legs (08/06/2014 9:22 AM EST) Text Report Department: Vascular Surgery Lab Patient: [id number] (HANNAH WONG) CPT Code: 81781 ICD-9: 729.81 Referring Physician: HIRAM NASCIMENTO Indication: [...] adiposity documented in this encounter Care Teams Toolroom Helper Relationship Specialty Start Date End Date Avery Caballero MD [address] [place] [address] PCP - General 04/15/14 documented as of this encounter
--- OUTSIDE RECORDS SUMMARY | 2024-04-08 18:09 | XMS_ITS | Encounter Summary ---
Author Organization [facility] [place] [address] Care Team Providers Care Restoration Officer Name Role Phone Avery Caballero MD Primary Care Provider [phone] Reason for Visit * Reason Comments GI Problem abnormal colon CT sc an Abdominal Pain right side Gastroesophageal Reflux Encounter Details Date Type Department Care Team (Late st Contact Info) Description 09/30/2014 4:00 PM EST Office Visit Gastroenterology at [facility] [place] [address] Yesenia Ac, SILO TENDER [facility] [place] [address] Abdominal pain, RUQ (right upper quadrant); Abnormal CT scan; Constipation, unspecified constipation type Discharge Disposition: Home Social History Tobacco Use [...] Sign Reading Time Taken Comments Blood Pressure 131/74 09/30/2014 3:14 PM EST Pulse 74 09/30/2014 3:14 PM EST Temperature - - Respiratory Rate - - Oxygen Saturation - - Inhaled Oxygen Concentration - - Weight 79.4 kg (175 lb 1.6 oz) 09/30/2014 3:14 P M EST Height 149.2 cm (4' 10.75) 09/30/2014 3:[address] Body Mass Index 35.67 09/30/2014 3:14 PM EST documented in this encounter Patient Instructions * Patient Instructions* Yesenia Ac APRN - 09/30/2014 4:34 PM EST 1. Colonoscopy and will call with the results 2. Lab work today and will call if results are abnormal 3. Stop Colace 4. Miralax 17 grams before bedtime; increase to 34 grams before bedtime if no improvement after 7 days 5. Senna 1-2 tablets before bedtime 6. Follow up in November Yesenia Ac SILO TENDER [phone] documented in this encounter Progress Notes * Yesenia Ac APRN - 09/30/2014 3:56 PM EST Subjective: Patient ID: Hannah Ling is a 49 y.o. woman who presents for further evaluation of her gastrointestinal symptoms at the request of Dr Barrow. HPI Comments: Hannah Ling is a pleasant 49 year old woman with a history significant for s/p gastric sleeve 09/25/12, s/p abdominoplasty, thighplasty and liposuction 06/19/14 who presents for consultation of her RUQ abdominal pain. She is accompanied by her . She reports experiencing RUQ abdominal pain since her surgery on 06/19/14. However, she reports noting RUQ swelling for the past 2-3 weeks. She denies fevers, chills, night sweats or illness. She describes the pain as a stabbing pain. The abdominal pain is constant and the swelling occurs intermittently. Tends to worsen with movement. The abdominal pain does not worsen postprandially. She denies nausea, vomiting, gas, bloating or distention. She reports presenting for follow up with Dr. Barrow today. A CT A/P without contrast obtained todayrevealed findings consistent with ascending colitis. Etiologies include inflammatory, ischemic and infective. She reports a change in her bowel movement since her surgery. She used to have formed bowel movement every day. Denies h/o constipation or diarrhea prior to surgery. She initially attributed the constipation to taking Tramadol after surgery but constipation has despite stopping Tramadol this past July. She is currently having a hard bowel movement every day. Taking Colace 100 mg BID and Senna1 tab qhs. Denies melena, hematochezia, rectal or anal pain. She reports straining and incomplete evacuation of stool. She reports no history of acid reflux prior to gastric sleeve. She reports being placed on omeprazole 40 mg qd after gastric sleeve performed at [facility]. She reports losing 80 lbs since gastric sleeve. No food allergies or intolerances. Denies heartburn, regurgitation, acid taste, chest pain, ENT concerns, dysphagia, odynophagia, early satiety or postprandial fullness. Review of Systems Constitutional: Negative. HENT: Negative. Respiratory: Negative. H/o asthma. Cardiovascular: Negative. Gastrointestinal: Positive for abdominal pain, constipation and abdominal distention. Negative for nausea, vomiting, diarrhea, blood in stool, anal bleeding and rectal pain. See HPI Endocrine: Negative. Genitourinary: Negative. Musculoskeletal: Negative. Skin: Negative. Allergic/Immunologic: Negative. Neurological: Negative. Hematological: Negative. Psychiatric/Behavioral: Negative. Allergies Allergen Reactions ??? Latex Other (See Comments) Localized blister/swelling/open skin ??? Meclizine Other (See Comments) unresponsive ??? Tegaderm [Transparent Dressings] Rash Raw skin instantly and hives Current Outpatient Prescriptions on File Prior to Visit Medication Sig Dispense Refill ??? senna (SENOKOT) 8.6 mg Tablet Take 1 tablet by mouth daily. ??? acetaminophen (TYLENOL) 500 mg Tablet Take 2 tablets by mouth every 6 hours as needed for Pain (for MODERATE pain). ??? docusate sodium (COLACE) 100 mg Capsule Take 1 capsule by mouth 2 times daily. ??? ursodiol (ACTIGALL) 300 mg Capsule [...] B COMPLEX ORAL) Take by mouth. ??? Nnvykuykbxtgx-Li-Tjob-Minerals Tab Take by mouth. Women's one a day gummy ??? [DISCONTINUED] traMADol (ULTRAM) 50 mg Tablet Take 1-2 tablets by mouth every 4 hours as neededfor Pain. 60 tablet 0 No current facility-administered medications on file prior to visit. Past Medical History Diagnosis Date ??? Allergy [...] PLICATION performed by Hiram Barrow MD at [facility] MAIN OR ??? Excise excess skin tissue, thigh 06/19/2014 EXCISION EXCESSIVE SKIN AND TISSUE-THIGH performed by Hiram Barrow MD at [facility] MAIN OR ??? Suct jamin lipectomy, low extrem 06/19/2014 SUCTION ASSISTED LIPECTOMY, LOWER EXTREMITY-HIRAL performed by Hiram Barrow MD at [facility] MAIN OR ??? Appendectomy History Social History ??? Marital Status: Spouse [...] Physical, Sexual, Verbal No Social History Narrative FMHx: no h/o colon or esophageal cancer; IBD; celiac disease; liver or pancreatic disease Vital Signs: BP 131/74; P 74; Wt 175 lbs 1.6 oz; Ht 4'10.75 Objective: Physical Exam Constitutional: She is oriented to person, place, and time. She appears well- developed and well-nourished. No distress. HENT: Head: Normocephalic and atraumatic. Mouth/Throat: Oropharynx is clear and moist. No oropharyngeal exudate. Eyes: Conjunctivae and EOM are normal. Pupils are equal, round, and reactive to light. Right eye exhibits no discharge. Left eye exhibits no discharge. No scleral icterus. Neck: Normal range of motion. Neck supple. No JVD present. No tracheal deviation present. No thyromegaly present. Cardiovascular: Normal rate, regular rhythm, normal heart sounds and intact distal pulses. Exam reveals no gallop and no friction rub. No murmur heard. Pulmonary/Chest: Effort normal and breath sounds normal. No stridor. No respiratory distress. She has no wheezes. She has no rales. She exhibits no tenderness. Abdominal: Soft. Bowel sounds are normal. She exhibits no distension and no mass. There is tenderness (RUQ abdominal tenderness on palpation. ). There is no rebound and no guarding. No hepatosplenomegaly. No succussion splash. No epigastric bruit. Abdominoplasty and umbilicus incision well healed. No erythema, swelling or drainage noted. Genitourinary: Rectal exam deferred. Lymphadenopathy: She has no cervical adenopathy. Neurological: She is alert and oriented to person, place, and time. No cranial nerve deficit. Skin: Skin is warm and dry. No rash noted. She is not diaphoretic. No erythema. No pallor. Psychiatric: She has a normal mood and affect. Her behavior is normal. Judgment and thought contentnormal. Vitals reviewed. Assessment and Plan: Hannah Ling is a pleasant 49 year old woman with a history significant for s/p gastric sleeve 09/25/12, s/p abdominoplasty, thighplasty and liposuction 06/19/14 who presents for consultation of her RUQ abdominal pain. We reviewed the results of her CT scan that revealed ascending colitis. Discussedwith and Mr Ling the etiology of findings is unclear but ddx to consider a IBD, malignancy or ischemic. Recommend proceeding with colonoscopy to further characterize the CT findings and obtain biopsies. Recommend lab work today. Consider MR enterography. Consider CTA. Await results for furthermanagement. 2. Constipation: the etiology is unclear given that constipation started after abdominoplasty/thighplasty and question if CT findings contributing to symptoms. Recommend changing her current bowel regimen and will have her start MiraLax 17 grams qhs. Continue Senna 1-2 tablets qhs. Consider Amitizaor Linaclotide. She is amenable to this. I did my best to answer all of her questions. The following plan was formulated. Plan: 1. Colonoscopy and will call with the results 2. Lab work today: CBC, CMP, TSH, Sed rate, CRP and will call if results are abnormal 3. Stop Colace 4. Miralax 17 grams qhs; increase to 34 grams before bedtime if no improvement after 7 days 5. Senna 1-2 tablets qhs; consider Amitiza 8-24 mcg qd-BID or Linaclotide 145- 290 mcg qam 6. Follow up in November Patient understands and is agreeable to the above plan. Written instructions provided. I spent a total of 50 minutes face to face with this patient; 30 minutes were spent counseling the patient in the medical problems described above. Thank you for the referral, Yesenia Ac APRN Section of Gastroenterology and Hepatology [place] [phone] documented in this encounter Plan of Treatment Scheduled Orders Name Type Priority Associated Diagnoses Orde r Schedule COLONOSCOPY Procedures Routine Abdominal pain, RUQ (right upper quadrant) Abnormal CT scan Constipation, Unspecified Constipation Type Ordered: 09/30/2014 documented as of this encounter Procedures Procedure Name Priority Date/Time Associated Diagnosis Comments HEMOGRAM Routine 09/30/2014 5:07 PM EST Abdominal pain, RUQ (right upper quadrant) Abnormal CT scan DIFFERENTIAL, AUTOMATED Routine 09/30/2014 5:07 PM EST Abdominal pain, RUQ (right upper quadrant) Abnormal CT scan IRON AND TIBC Routine 09/30/2014 5:07 PM EST SEDIMENTATION RATE Routine 09/30/2014 5: 07 PM EST Abdominal pain, RUQ (right upper quadrant) Abnormal CT scan CBC (WITH DIFF) Routine 09/30/2014 5:07 PM EST Abdominal pain, RUQ (right upper quadrant) Abnormal CT scan CRP, CARDIAC RISK (HS CRP) Routine 09/30/2014 5:07 PM EST Abdominal pain, RUQ (right upper quadrant) Abnormal CT scan TSH Routine 09/30/2014 5:07 PM EST Abdominal pain, RUQ (right upper quadrant) Abnormal CT scan COMPREHENSIVE METABOLIC PANEL Routine 09/30/2014 5:07 PM EST Abdominal pain, RUQ (right upper quadrant) Abnormal CT scan documented in this encounter Results * (ABNORMAL) Iron and TIBC (09/30/2014 5:07 PM EST) Iron 25(L) 30 - 150 mcg/dL CERNER MILLENNIUM TIBC 353 250 - 450 mcg/dL CERNER MILLENNIUM Iron Saturation 7(L) 20 - 50 % CERN ER MILLENNIUM Blood specimen (specimen) Venous Draw / Unknown 09/30/2014 5:07 PM EST 09/30/2014 5:17 PM EST Narrative Resulting Agency Comment Spec In Lab Roly Goldstein MD CHEMISTRY ORDERABLES CERNER MILLENNIUM * Differential, Automated (09/30/2014 5:07 PM EST) Neutrophil % 58.6 % CERNER MILLENNIUM Neutrophil Absolute 3.95 1.50 - 6.30 x10(3)/mcL CERNER MILLENNIUM Lymph % 30.1 % CERNER MILLENNIUM Lymphocytes Abs 2.0 1.0 - 3.6 x10(3)/mcL CERNER MILLENNIUM Monocyte % 7.9 % CERNER MILLENNIUM Monocyte Abs 0.5 0.2 - 1.0 x10(3)/mcL CERNER MILLENNIUM Eos % 3.3 % CERNER MILLENNIUM Eosinophils Abs 0.2 0.0 - 0.5 x10(3)/mcL CERNER MILLENNIUM Basophil % 0.1 % CERNER MILLENNIUM Baso Absolute 0.0 0.0 - 0.2 x10(3)/mcL CERNER MILLENNIUM Immature Gran % 0.00 % CERN ER MILLENNIUM Comment: Immature granulocytes(IG's)percentage and absolute count will include metamyelocytes, myelocytes, and promyelocytes. Blood smears from CBCs yielding IG's will be scanned manually for concordance. If this scan disagrees with the automated IG or if promyelocytes are noted, a manual differential will be performed. Immature Gran Absolute 0.00 0.00 - 0.05 x10(3)/mcL CERNER MILLENNIUM Blood specimen (specimen) 09/30/2014 5:07 PM EST 09/30/2014 5:12 PM EST Narrative Resulting Agency Comment Spec In Lab Roly Goldstein MD HEMATOLOGY ORDERABLE S CERNER MILLENNIUM * (ABNORMAL) Hemogram (09/30/2014 5:07 PM EST) White Blood Cell 6.7 4.0 - 10.0 x10(3)/mc L CERNER MILLENNIUM Red Blood Cell 4.26 3.93 - 5.22 x10(6)/mc L CERNER MILLENNIUM Hemoglobin 10.3(L) 11.2 - 15.7 gm/dL CERNER MILLENNIUM Hematocrit 33.0(L) 34.0 - 45.0 % CERNER MILLENNIUM Mean Cell Volume 77.5(L) 79.0 - 94.0 fL CERNER MILLENNIUM Mean Cell Hemoglobin 24.2(L) 26.6 - 32.2 pg CERNER MILLENNIUM Mean Cell Hemoglobin Concentration 31.2(L) 32.0 - 36.5 gm/dL CERNER MILLENNIUM Platelet 204 145 - 370 x10(3)/mc L CERNER MILLENNIUM RDW Standard Deviation 40.5 35.0 - 46.0 fL CERNER MILLENNIUM RDW coefficient of variation 14.3 10.9 - 14.4 % CERNER MILLENNIUM Mean Platelet Volume 10.5 9.0 - 12.0 fL [facility] Blood specimen (specimen) 09/30/2014 5:07 PM EST 09/30/2014 5:12 PM EST Narrative Resulting Agency Comment Spec In Lab Roly Goldstein MD HEMATOLOGY ORDERABLE S Performing Organization Address [facility] Co de Phone Number [facility] * High Sensitivity CRP (09/30/2014 5:07 PM EST) C-Reactive Protein High Sensitivity 3.7 mg/L [facility] Comment: Interpretations: 1) For accurate cardiac risk assessment, the average of 2 values >2 weeks apart should be obtained (ref 1&2). A value >10 mg/L indicates an inflammatory condition, concentrations >10 mg/L should not be used for cardiac risk assessment. ?<1.0 mg/L: low risk ?1.0 - 3.0 mg/L: moderate risk ?>3.0 mg/L: high risk groups for future cardiovascular events 2) The general reference range of apparently healthy individuals using this test is <5.0 mg/L (derived from the test package insert) References: 1. Russel NEGRO et. al. ??AHA/CDC Scientific Statement: Markers of Inflammation and Cardiovascular Disease. ??Circulation 2003; 107:499-511 2. Ridker PM. ??Clinical applications of C-reactive protein for cardiovascular disease detection and prevention. ??Circulation 2003; 107:363-369 Blood specimen (specimen) 09/30/2014 5:07 PM EST 09/30/2014 5:12 PM EST Narrative Resulting Agency Comment Spec In Lab Roly Goldstein MD CHEMISTRY ORDERABLES Performing Organization Address [facility] Co de Phone Number [facility] * (ABNORMAL) Sedimentation rate (09/30/2014 5:07 PM EST) Sedimentation Rate Automated 23(H) 0 - 20 mm/hr [facility] Blood specimen (specimen) 09/30/2014 5:07 PM EST 09/30/2014 5:12 PM EST Narrative Resulting Agency Comment Spec In Lab Roly Goldstein MD HEMATOLOGY ORDERABLE S Performing Organization Address City/[facility]/ZIP Co de Phone Number CERLANA EVANSI[facility] * TSH (09/30/2014 5:07 PM EST) Thyroid Stimulating Hormone 1.16 0.27 - 4.20 mcIU/mL CERNER MILLENNIUM Blood specimen (specimen) 09/30/2014 5:07 PM EST 09/30/2014 5:12 PM EST Narrative Resulting Agency Comment Spec In Lab Roly Goldstein MD CHEMISTRY ORDERABLES Performing Organization Address [facility] Co de Phone Number SENA EVANSI[facility] * (ABNORMAL) Comprehensive metabolic panel (non-fasting) (09/30/2014 5:07 PM EST) Glucose 93 60 - 199 mg/dL CERNER MILLENNIUM Comment:Diabetes: >=200 mg/d L plus symptoms Blood Urea Nitrogen 9 8 - 18 mg/dL CERNER MILLENNIUM Creatinine 0.53(L) 0.70 - 1.20 mg/dL CERNER MILLENNIUM Comment: Please note that the pediatric reference intervals supplied above were not validated at [facility] Results from pediatric patients should [...] the following links into your internet browser. [email or web address] Blood specimen (specimen) 09/30/2014 5:07 PM EST 09/30/2014 5:12 PM EST Narrative Resulting Agency Comment Spec In Lab Roly Goldstein MD CHEMISTRY ORDERABLES SENA SESAY documented in this encounter Visit Diagnoses Diagnosis Abdominal pain, RUQ (right upper quadrant) Abdominal pain, right upper quadrant Abnormal CT scan Other nonspecific (abnormal) findings on radiological and other examinations of body structure Constipation, unspecified constipation type documented in this encounter Care Teams Restoration Officer Relationship Specialty Start Date End Date Avery Caballero MD [address] [place] [address] PCP - General 04/15/14 documented as of this encounter
--- OUTSIDE RECORDS SUMMARY | 2024-04-08 18:09 | XMS_ITS | Encounter Summary ---
[place] [address] Care Team Providers Care Loan Manager Name Role Phone Avery Caballero MD Primary Care Provider [phone] Reason for Visit * Reason Comments Follow Up Surgery panni/thigh plasty Encounter Details Date Type Department Care Team (Late st Contact Info) Description 07/21/2014 8:00 AM EST Follow-[place] [address] Varsha Lima APRN [facility] [place] [address] Other specified aftercare following surgery Discharge Disposition: [...] * Patient Instructions* Varsha Lima APRN - 07/21/2014 8:27 AM EST Plan: 1. Follow up with Dr. Barrow in August as previously scheduled. 2. Apply a thin layer of bacitracin to staple/suture removal sites until healed 3. Ok to shower as normal 4. Ok to continue wearing compression garment if desired for comfort 5. Slowly continue to increase activity level- resume normal activities without restrictions at 6 weeks post op. 6. Ok to return to work on 08/03/14 without restrictions documented in this encounter Progress Notes * Varsha Lima APRN - 07/21/2014 8:02 AM EST Plastic Surgery Follow Up Note Varsha Lima APRN Reason for visit: F/U status post procedure Date of surgery: 06/19/14 Procedure(s): Abdominoplasty, thighplasty Complications: None reported HPI: Hannah is accompanied by her for today's visit. She is here today for an incision check on the thighplasty incision. She reports she has continued having difficulty with her thighs including spitting sutures and some mild drainage. The abdominoplasty incision is continuing to heal wellwithout difficulty. Overall she has noticed a decrease in her discomfort however there are several areas along the thigh incisions that remain bothersome. Examination: Patient is alert, conversant, comfortable, ambulating Abdominal incision: CDI, healing well. Umbilicus viable, healthy Thigh incisions: CDI, healing well with the exception of several small openings with surfacing sutures and dissolving seng in the base. No signs of infection No collection, no erythema, no evidence of cellulitis. Spitting seng and sutures removed today Silver nitrate applied to areas of hypergranulation Impression: Hannah Ling is a 49 y.o. female who was seen today for follow-up. She has continued to make healing progress to date. During today's visit, I answered her questions and addressed her concerns. I reassured her that spitting sutures are completely normal following surgical intervention. I removed some spitting seng and sutures today and advised her to apply a thin layer of bacitracin to the removal sites until healed. She is able to continue showering as normal. She is able to slowly increase her activity level and resume normal activities without restrictions at 6 weeks post op. She is able to return to work on 08/03/14 without restrictions. I advised her that she is able tocontinue wearing compression garments if desired for comfort however, she is able to discontinue wearing it if desired. She should follow up with Dr. Barrow in August as previously scheduled or sooner with any concerns. Plan: 1. Follow up with Dr. Barrow in August as previously scheduled. 2. Apply a thin layer of bacitracin to staple/suture removal sites until healed 3. Ok to shower as normal 4. Ok to continue wearing compression garment if desired for comfort 5. Slowly continue to increase activity level- resume normal activities without restrictions at 6 weeks post op. 6. Ok to return to work on 08/03/14 without restrictions IMelodie, am acting as scribe for Varsha Lima. All work documented was performed by Pedro. ???I performed the above scribed service and agree with the accuracy of the note?? Varsha Lima APRN documented in this encounter Plan of Treatment Not on file documented as of this encounter Visit Diagnoses Diagnosis Other specified aftercare following surgery documented in this encounter Care Teams Loan Manager Relationship Specialty Start Date End Date Avery Caballero MD [address] [place] [id number] PCP - General 04/15/14 documented as of this encounter
--- OUTSIDE RECORDS SUMMARY | 2024-04-08 18:09 | XMS_ITS | Encounter Summary ---
[place] [address] Care Team Providers Care Game Warden Name Role Phone Avery Caballero MD Primary Care Provider [phone] Encounter Details Date Type Department Care Team (Late st Contact Info) Description 09/30/2014 Telephone [place] [id number] Amanda Coello Social History Tobacco Use Types Packs/Day Years [...] encounter Miscellaneous Notes * Telephone Encounter - Amanda Coello - 09/30/2014 10:[address] Questions documented in this encounter Plan of Treatment Not on file documented as of this encounter Visit Diagnoses Not on filedocumented in this encounter Care Teams Game Warden Relationship Specialty Start Date End Date Avery Caballero MD [address] [place] [address] PCP - General 04/15/14 documented as of this encounter
--- OUTSIDE RECORDS SUMMARY | 2024-04-08 18:09 | XMS_ITS | Encounter Summary ---
Author Organization [facility] [place] [address] Care Team Providers Care Boiler Plant Operator Name Role Phone Avery Caballero MD Primary Care Provider [phone] Encounter Details Date Type Department Care Team (Late st Contact Info) Description 06/19/2014 10:58 AM EDT - 06/19/2014 4:26 PM EDT [place] [id number] Hiram Nascimento MD [facility] [place] [address] ABDOMINOPLASTY EXC,W/ UMBILICAL TRANSPOSITION, FASCIAL PLICATION (WRVU 17.04) Social History Tobacco Use Types Packs/Day Years [...] from each drain. Call the clinic at [phone] and schedule an appointment with the nurses [...] Sunday 8 am to 5 pm Call [phone] On weekends or after hours: Call [phone] and ask the dishwashing machine operator to page the Plastic Surgery Resident compensation analyst. Prescription Line: Call the line at [phone] from 8am-4pm Sunday through Sunday. Narcotic renewals will not be honored after hours or on weekends. Make your request a few days before you run out as it make take up to 24 hours for physician approval. * Attachments The following attachments cannot be sent through Care Everywhere. * SURGICAL DRAIN CARE (TONGAN) documented in this encounter Medications at Time of Discharge Medication Sig Dispensed Refills Start Date End Date montelukast (SINGULAIR) 10 mg tablet Take 10 mg by mouth nightly. fluticasone (FLONASE) 50 mcg/actuation nasal spray 1 spray daily. Cholecalciferol, Vitamin D3, 2,000 unit Cap Take by mouth. FERROUS FUMARATE/VIT BCOMP&C (SUPER B COMPLEX ORAL) Take by mouth. Mfpuyjosqvqub-Pk-Lwe n-Minerals Tab Take by mouth. Women's one [...] plans to d/c home today. 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 Going home with 4 drains but she knowshow to care for them and measure I&O. No need for home services. CRC remains available as needed for coordination of care and discharge planning. Pricilla Chawla RN Office of Care Management Clinical Provider Network Manager Covering for Yaquelin Celis Pager [phone] * Latoya Samuels RN - 06/22/2014 10:21 [...] Please see flowsheet for full assessment. LATOYA SAMUELS RN * Charlotte Arrington, RN - 06/21/2014 5:13 PM EDT I assumed care of this pt from [phone]. I agree with the previous nurse's assessment. [...] which worsened when she tried to use wan support specialist Still uncomfortable and taking tylenol Tolerating sips, [...] DVT prophylaxis- SCDs Latoya Lozano MD, Pager [phone] * Melissa Campbell RN - 06/19/2014 7:08 PM EDT 0-Handoff report received from Sophie Mazariegos. Pt resting comfortably, denies pain or n/v. [...] encounter Miscellaneous Notes * Miscellaneous - Provider, Hannah - 06/23/2014 10:46 AM EDT * Miscellaneous - Provider, Scanning - 06/23/2014 10:33 AM EDT * Discharge Summary - Raegan Mosquera PA - 06/22/2014 7:24 AM EDT Discharge Summary Patient Name: Hannah Ling Patient Age: 49 y.o. Language: Hong Konger Race: White Ethnicity: Not nor Admit date: 06/19/2014 Discharge date: 06/22/2014 Attending Physician: [place] Nascimento MD Discharge Physician: dara Discharge Diagnoses (Hospital Problems) and Secondary Diagnoses [...] loss. She previously underwent bariatric surgery in [place] and remains in the program. She broughther labs with her today which all showed normal results. Hospital Course: Patient was [place] elect[facility] to [facility] via the same day surgery program and [...] Weight: Wt Readings from Last 1 Encounters: 06/20/ 80.287 kg (177 lb) Height: Ht Readings [...] by mouth nightly. 10 mg Refills: 0 Abxnskixlpayd-Wu-Wwrz-Minerals Tab Take by mouth. Women's one a [...] from each drain. Call the clinic at [phone] and schedule an appointment with the nurses [...] Sunday 8 am to 5 pm Call [phone] On weekends or after hours: Call [phone] and ask the dishwashing machine operator to page the Plastic Surgery Resident compensation analyst. Prescription Line: Call the line at [phone] from 8am-4pm Sunday through Sunday. Narcotic renewals will not be honored after hours or on weekends. Make your request a few days before you run out as it make take up to 24 hours for physician approval. General Instructions None Future Appointments and Orders Future Appointments: Provider: Department: Dept Phone: Center: 07/02/2014 11:15 AM Varsha Lima APRN Plastic Surgery [phone] [facility] Follow-Up: Future Appointments Date Time Provider Department Center 07/02/2014 11:15 AM Varsha Lima APRN [facility] Primary Care Provider: AVERY CABALLERO MD [phone] Follow-up Recommendations for Providers: Please see discharge [...] was managed by the Plastic SurgeryTeam at [facility]. If you haveany questions or concerns, please feel free to contact us. Provider Contact Information: Plastic Surgery Clinic: [facility] (after business hours): * Plan of Care [...] Swann MD - 06/19/2014 8:50 PM EDT [facility] Operative Note Patient Name: Hannah Ling : [id number] MR#: [id number] Case Date: 06/19/2014 Surgeon: Surgeon(s) and Role: [...] wound bed. The incision was closed with Lis's technique of securing the oliva perficial fascia [...] Operative Note Patient Name: Hannah Ling : [id number] MR#: [id number] Case Date: 06/19/2014 Surgeon: Surgeon(s) and Role: [...] Lab [facility] Nascimento MD HEMATOLOGY ORDERABLE S Performing Organization Address [facility]/ZIP Co de Phone Number CERNER MILLENNIUM * (ABNORMAL) Hemogram (06/19/2014 6:30 [...] Lab [facility] Nascimento MD HEMATOLOGY ORDERABLE S Performing Organization Address [facility] Co de Phone Number CERNER MILLENNIUM * Antibody screen (06/19/2014 1:10 PM EDT) Ab Screen Interp Negative CERNER MILLENNIUM Expires at 2359 on: [id number] CERNER MILLENNIUM Blood specimen (specimen) 06/19/2014 1:10 PM EDT 06/19/2014 1:10 PM EDT Narrative Resulting Agency Comment Spec In Lab [facility] Nascimento MD BLOOD BANK LAB ORDER GARETH CERLANA MILLENNIUM * ABO/Rh Typing (06/19/2014 1:10 PM EDT) [...] MAR Action Action Date Dose Rate Site EPINEPHrine (PF) injection Soln ONCE PRN, Starting on Sun06/19/14 at 1403, Until Sun06/19/14 at 2004, Intra-Operative (Intra-Procedure), Routine Given 06/19/2014 2:03 PM EDT 1 mg 19- Surgical Site lidocaine (PF) (XYLOCAINE) 10 mg/mL (1 %) injection ONCE PRN, Starting on Sun06/19/14 at 1355, Until Sun06/19/14 at 2005, Intra-Operative (Intra-Procedure), Routine Given 06/19/2014 1:55 PM EDT 500 mg 19- Surgical Site documented in this encounter Active and Recently Administered Medications Times are shown in EDT. Scheduled Medication Order 06/20/2014 06/21/2014 06/22/2014 cholecalciferol (Vitamin D3) tablet 2,000 Units (CANCELED) 2,000 Units, Oral, DAILY, First dose on Sun06/21/14 at 1030, Until Discontinued, Home med, Routine 1201 (Given - Provider: Akash Huertas RN) 0809 (Given - Provider: Latoya Samuels RN) docusate sodium (COLACE) capsule 100 mg 100 mg, Oral, 2 TIMES DAILY, First dose on Sun06/19/14 at 2100, Until Discontinued, Routine 0906 (Given - Provider: Patrick Casillas RN)222 (Given - Provider: Daniela Warner RN) 09 (Given - Provider: Akash Huertas RN)2099 (Given - Provider: Reynaldo Naylor, RAFAL) 08 (Given - Provider: Latoya Samuels RN) enoxaparin (LOVENOX) injection 40 mg (CANCELED) 40 mg, Subcutaneous, DAILY, First dose on Sun06/20/14 at 0600, Until Discontinued, Routine 0603 (Hold - Provider: Flaca Vásquez RN - Reason: See comment - Comment: pt will take later)09 (Given - Provider: Patrick Casillas RN) 0917 (Given - Provider: Akash Huertas RN) 08 (Given - Provider: Latoya Samuels RN) esomeprazole (NexIUM) capsule 40 mg (CANCELED) 40 mg, Oral, DAILY, First dose on Sun06/19/14 at 2100, Until Discontinued, Therapeutic interchange for home omeprazole, Routine 904 (Given - Provider: Patrick Casillas RN) 0915 (Given - Provider: Akash Huertas RN) 08 (Given - Provider: Latoya Samuels RN) fluticasone (FLONASE) 50 mcg/actuation nasal spray 1 spray (CANCELED) 1 spray, Each Nare, DAILY, First dose on Sun06/19/14 at 2044, Until Discontinued, Routine 0900 (Not Given - Provider: Patrick Casillas RN - Reason: Medication not available) 0916 (Given - Provider: Akash Huertas RN) 08 (Given - Provider: Latoya Samuels RN) fluticasone-salmeterol (ADVAIR HFA) 115-21 mcg/actuation inhaler 2 puff (CANCELED) 2 puff, Inhalation, EVERY 12 HOURS, First dose on Sun06/19/14 at 2044, Until Discontinued, Rinse mouth after administration Therapeutic interchange from Advair 250/50 0845 (Not Given - Provider: Patrick Casillas RN - Reason: Medication not available)2044 (Given - Provider: Daniela Warner RN) 09 (Given - Provider: Akash Huertas RN)2044 (Given - Provider: Reynaldo Naylor RN) 0802 [...] (CANCELED) 150 mL/hr, Intravenous, CONTINUOUS, Starting on 06/19/14 at 1845, Until 06/20/14 at 0759, Recovery (Recovery-Hospital Unit) 0157 (New Bag - Provider: Flaca Vásquez RN) PRN Medication Order 06/20/2014 06/21/2014 06/22/2014 acetaminophen (TYLENOL) tablet 1,000 mg 1,000 mg, Oral, EVERY 6 HOURS PRN, Starting on 06/19/14 at 2019, Until 06/22/14 at 1531, Pain, for MODERATE pain, Do not exceed 4,000 mg in 24 hours, Routine 0602 (Given - Provider: Flaca Vásquez, RAFAL)1411 (Given - Provider: Rita Moser RN)2238 (Given - Provider: Daniela Warner RN) 0442 (Given - Provider: Daniela Warner RN)1008 (Given - Provider: Akash Huertas RN)1628 (Given - Provider: Charlotte Arrington RN) ondansetron (ZOFRAN) injection 4 mg (COMPLETED) 4 mg, Intravenous, EVERY 30 MIN PRN, 2 doses, Starting on 06/19/14 at 2019, Until 06/20/14 at 0606, Nausea, May repeat dose once in 30 minutes if no relief from previous dose., Recovery (Recovery-Hospital Unit) 0606 (Given - Provider: Flaca Vásquez RN) ondansetron (ZOFRAN) tablet 4 mg (CANCELED) 4 mg, Oral, EVERY 8 HOURS PRN, Starting on 06/21/14 at 0836, Until 06/22/14 at 1531, Nausea, Routine 0855 (Given - Provider: Akash Huertas RN) traMADol (ULTRAM) tablet 50 mg (CANCELED) 50 mg, Oral, EVERY 6 HOURS PRN, Starting on 06/20/14 at 0759, Until 06/20/14 at 1212, Pain, Routine 0905 (Given - Provider: Patrick Casillas RN) traMADol (ULTRAM) tablet 50 mg (CANCELED) 50 mg, Oral, EVERY 4 HOURS PRN, Starting on 06/20/14 at 1215, Until 06/21/14 at 0928, Pain, Routine 1220 (Given - Provider: Patrick Casillas, RN)1653 (Given - Provider: Carolina Matthew, RAFAL)2159 (Given - Provider: Daniela Warner, RAFAL) 0206 (Given - Provider: Daniela Warner RN)0615 (Given - Provider: Daniela Warner RN) traMADol [...] Reynaldo Naylor RN)0801 (Given - Provider: Latoya Samuels RN)1207 (Given - Provider: Latoya Samuels RN) documented in this encounter Care Teams Boiler Plant Operator Relationship Specialty Start Date End Date Avery Caballero MD [address] [place] [address] PCP - General 04/15/14 documented as of this encounter
--- OUTSIDE RECORDS SUMMARY | 2024-04-08 18:09 | XMS_ITS | Encounter Summary ---
Author Organization [facility] [place] [address] Care Team Providers Care Application Development Specialist Name Role Phone Avery Caballero MD Primary Care Provider [phone] Encounter Details Date Type Department Care Team (Late st Contact Info) Description 09/30/2014 Telephone Gastroenterology at [facility] [place] [address] Yesenia Ac APRN [facility] [place] [address] Social History Tobacco Use Types Packs/Day Years [...] Telephone Encounter - Yesenia Ac APRN - 09/30/2014 8:40 PM EST Contacted Mrs Ling regarding her lab work revealed an anemia 10.3/33; sed rate 23; CMP wnl except ALP 149, TSH wnl. Will obtain iron studies. Recommend taking ferrous sulfate 325 mg qd and consider increasing to BID. She is scheduled for colonoscopy 10/06/14. documented in this encounter Plan of Treatment Not on file documented as of this encounter Visit Diagnoses Diagnosis Anemia, unspecified anemia type documented in this encounter Care Teams Application Development Specialist Relationship Specialty Start Date End Date Avery Caballero MD [address] [place] [address] PCP - General 04/15/14 documented as of this encounter
--- OUTSIDE RECORDS SUMMARY | 2024-04-08 18:09 | XMS_ITS | Encounter Summary ---
[facility] Organization [facility] [place] [address] Care Team Providers Care Police And Fire Dispatcher Name Role Phone Avery Caballero MD Primary Care Provider [phone] Reason for Visit * Reason Comments Follow Up Surgery s/p abdominoplasty, thighplasty 06/19, ? hernia Encounter Details Date Type Department Care Team (Late st Contact Info) Description 09/30/2014 9:45 AM EST [place] [address] Hiram Barrow MD [facility] [place] [address] Abdominal pannus Discharge Disposition: Home Social History [...] Time Taken Comments Blood Pressure 131/74 09/30/2014 9:52 AM EST Pulse 74 09/30/2014 9:52 AM EST Temperature - - Respiratory Rate - - Oxygen Saturation - - Inhaled Oxygen Concentration - - Weight 79.3 kg (174 lb 12.8 oz) 09/30/2014 9:52 AM EST Height 149.2 cm (4' 10.75) 09/30/2014 9:52 AM Geoffrey WYATT Body Mass Index 35.61 09/30/2014 9:52 AM EST documented in this encounter Progress Notes * Hiram Barrow MD - 09/30/2014 10:12 AM EST Plastic Surgery Follow Up Note Reason for visit: F/U status post procedure Date of surgery: 06/19/14 Procedure(s): Abdominoplasty, thighplasty Complications: None reported HPI: Hannah is accompanied by her for today's visit. She has been feeling well except she still has pain on the right side of her abdomen. The pain, and bulging increases throughout the day, and is worse in the evening. She has trouble sleeping at night. She reports that when she was placed in a post operative binder she had bruising and pain along theright side of her abdomen because it was too tight. It was switched to a larger one, but the pain never resolved. The area of discomfort is in the same area. She still has swelling in her legs which are managed by her PCP. Examination: Patient is alert, conversant, comfortable, ambulating Abdominal incision scars are pink and firm maturing positively Umbilicus viable,Incision well healed and viable No palpable hernia or bulge Thigh incisions: Scars pink and firm Tender over the right sub costal area Ct scan of abdomen today: CT scan today results reviewed with safety technician reveals eliana colonic edema and vascular enlargement I discussed the findings with the patient and arranged an appointment for her in gastroenterology Impression: Hannah Ling is a 49 y.o. female who was seen today for follow-up. She has continued to make healing progress to date. She has a good result. She continues to have pain on the right lateral sub costal area. I discussed that the nerves may have been injured from the abdominal binder, or she may have strained a muscle. I offered medical treatment for her discomfort with Gabapentin. She declines at this time. I arranged an appointment with gastroenterology for later today. I will follow up with her as scheduled to check her progress. Plan: 1. Follow up with Dr. Barrow as planned 2. Full activity no restrictions 3. gastroenterology appointment today I, Hannah Roger, am acting as scribe for Dr Barrow. All work documented was performed by Dr Barrow. ???I performed the above scribed service and agree with the accuracy of the note?? Hiram Barrow MD documented in this encounter Plan of Treatment Not on file documented as of this encounter Results * CT abdomen & pelvis WO contrast (09/30/2014 2:39 PM EST) Anatomical Region Laterality Modality Abdomen, Pelvis Computed Tomogra phy 09/30/2014 2:39 PM EST Impressions 09/30/2014 3:02 PM EST IMPRESSION: Findings consistent with ascending colitis. Etiologies include inflammatory, ischemic and infective. Results discussed with Dr. Hiram Barrow at 3:00 PM on 09/30/2014 Narrative 09/30/2014 3:02 PM EST EXAMINATION: CT Abdomen / Pelvis Without Contrast CLINICAL HISTORY: s/p abdominoplasty right sided pain ?? r/o hernia TECHNIQUE: Helical CT of the abdomen and pelvis was performed without the use of intravenous contrast COMPARISON: None FINDINGS: Diffuse postsurgical changes in the anterior abdominal [...] fluid collection. Right kidney and ureter: Calculi: None Obstruction/hydronephrosis: None Left kidney and ureter: Calculi: None Obstruction/hydronephrosis: None Urinary bladder: Calculi: None This examination is limited for the evaluation of solid organs and vasculature structures due to the lack of intravenous contrast. Unenhanced images of the liver, spleen, pancreas, and adrenal glands are within normal limits. No lymphadenopathy. . Osseous structures: No suspicious lesions. Procedure Note Sofi James MD - 09/30/2014 EXAMINATION: CT Abdomen / Pelvis Without Contrast CLINICAL HISTORY: s/p abdominoplasty right sided pain r/o hernia TECHNIQUE: Helical CT of the abdomen and pelvis was performed without theuse of intravenous contrast COMPARISON: None FINDINGS: Diffuse postsurgical changes in the anterior abdominal [...] freefluid collection. Right kidney and ureter: Calculi: None Obstruction/hydronephrosis: None Left kidney and ureter: Calculi: None Obstruction/hydronephrosis: None Urinary bladder: Calculi: None This examination is limited for the evaluation of solid organs andvasculature structures due to the lack of intravenous contrast. Unenhanced images of the liver, spleen, pancreas, and adrenal glands arewithin normal limits. No lymphadenopathy. . Osseous structures: No suspicious lesions. IMPRESSION IMPRESSION: Findings consistent with ascending colitis. Etiologies includeinflammatory, ischemic and infective. Results discussed with Dr. Hiram Barrow at 3:00 PM on 09/30/2014 Hiram Barrow MD IMG CT ORDERABLES documented in this encounter Visit Diagnoses Diagnosis Abdominal pannus Localized adiposity Abdominal pannus Localized adiposity documented in this encounter Care Teams Police And Fire Dispatcher Relationship Specialty Start Date End Date Avery Caballero MD [address] [place] [address] PCP - General 04/15/14 documented as of this encounter
--- OUTSIDE RECORDS SUMMARY | 2024-04-08 18:09 | XMS_ITS | Encounter Summary ---
[place] [address] Care Team Providers Care Bulkhead Carpenter Name Role Phone Avery Caballero MD Primary Care Provider [phone] Encounter Details Date Type Department Care Team (Late st Contact Info) Description 09/30/2014 Telephone [place] [id number] Amanda Coello Social History Tobacco Use Types [...] encounter Miscellaneous Notes * Telephone Encounter - Aamnda Coello - 09/30/2014 10:[address] questions documented in this encounter Plan of Treatment Not on file documented as of this encounter Visit Diagnoses Not on filedocumented in this encounter Care Teams Bulkhead Carpenter Relationship Specialty Start Date End Date Avery Caballero MD [address] [place] [address] PCP - General 04/15/14 documented as of this encounter
--- OUTSIDE RECORDS SUMMARY | 2024-04-08 18:09 | XMS_ITS | Encounter Summary ---
Author Organization [facility] Address [address] [place] [address] Care Team Providers Care Applied Marine Physics Professor Name Role Phone Avery Caballero MD Primary Care Provider [phone] Encounter Details Date Type Department Care Team (Late st Contact Info) Description 09/02/2020 Lab Requisition [facility] Pathology & Laboratory Medicine - [facility] [address] [place] [address] Outr Resulting Lab, Provider Social History Tobacco [...] Procedure Name Priority Date/Time Associated Diagnosis Comments ZZCOVID-19 TEST [facility] PCR Today 09/02/2020 9:06 EST COVID-19 TESTING Routine 09/02/2020 9:06 EST documented in this encounter Results * COVID-19 TEST [facility] PCR (09/02/2020 9:06 EST) Swab ENTIRE NASOPHARYNX / Unknown 09/02/2020 9:06 EST 09/03/2020 10:08 EST Provider Outr Resulting Lab MICROBIOLOGY - GENERAL ORDERABLES [facility] [address] [place] [address] * COVID-19 TESTING (09/02/2020 9:06 EST) COVID-19 rt-PCR Result Negative Negative 09/04/2020 13:51 EST [facility] Comment: Negative results do not preclude 2019-nCoV infection and should not be used as the sole basis for treatment or other patient management decisions. Negative results must be combined with clinical observations, patient history, and epidemiological information. This test was developed and its performance characteristics determined by [facility]. It has not been cleared or approved by the US Food and Drug Administration. FDA does not require this test to go through premarket FDA review. This test is used for clinical purposes. It should not be regarded as investigational or for research. This laboratory is certified under the Clinical Laboratory Improvement Amendments (CLIA) as qualified to perform high complexity clinical laboratory testing. This test is based on the CDC COVID-19 Emergency Use Authorization (EUA) assay, with minor modification as defined by the FDA Performed on the [employer] 7 Flex. Performing Lab [employer] [facility] 09/04/2020 13:51 EST [facility] Swab 09/02/2020 9:06 EST 09/03/2020 10:08 EST Provider Outr Resulting Lab MICROBIOLOGY - GENERAL ORDERABLES [facility] [address] [place] [address] documented in this encounter Visit Diagnoses Not on filedocumented in this encounter Care Teams Applied Marine Physics Professor Relationship Specialty Start Date End Date Avery Caballero MD [address] [place] [address] PCP - General 12/20/10 documented as of this encounter
--- OUTSIDE RECORDS SUMMARY | 2024-04-08 18:09 | XMS_ITS | Encounter Summary ---
Author Organization [facility] [place] [address] Care Team Providers Care Sack Lifter Name Role Phone Avery Caballero MD Primary Care Provider [phone] Encounter Details Date Type Department Care Team (Late st Contact Info) Description 09/30/2014 Orders Only Gastroenterology at [facility] [place] [address] Yesenia Ac APRN [facility] [place] [address] Anemia, unspecified anemia type Social History Tobacco Use Types Packs/Day Years [...] type documented in this encounter Care Teams Sack Lifter Relationship Specialty Start Date End Date Avery Caballero MD [address] [place], [place] [id number] PCP - General 04/15/14 documented as of this encounter
--- OUTSIDE RECORDS SUMMARY | 2024-04-08 18:09 | XMS_ITS | Encounter Summary ---
Author Organization [facility] Address [address] [place] [address] Care Team Providers Care Mobile Marketing Specialist Name Role Phone Avery Caballero MD Primary Care Provider Reason for Visit * Reason Onset Date Comments Appointment Related 12/03/2014 Encounter Details Date Type Department Care Team (Late st Contact Info) Description 12/03/2014 Telephone [facility] Bariatric Surgery [address] [address] Leon Georges, PANikiaC [address] [facility] [address] [place] [id number] Appointment Related Social History Tobacco Use Types [...] * Telephone Encounter - Dayanara You - 12/18/2014 1431 EDT Letter sent 12/18/14 * Telephone Encounter - Dayanara You - 12/15/2014 1015 EDT Called pt a second time lm on * Telephone Encounter - Dayanara You - 12/03/2014 1055 EDT Called pt to see if she would like to reschedule the appt she NOS on 11/19/14 lm on vm documented in this encounter Plan of Treatment Not on file documented as of this encounter Visit Diagnoses Not on filedocumented in this encounter Care Teams Mobile Marketing Specialist Relationship Specialty Start Date End Date Avery Caballero MD [address] [place] [address] PCP - General 12/20/10 documented as of this encounter
--- OUTSIDE RECORDS SUMMARY | 2024-04-08 18:09 | XMS_ITS | Encounter Summary ---
Author Organization [facility] [place] [address] Care Team Providers Care Tractor Drill Operator Name Role Phone Avery Caballero MD Primary Care Provider [phone] Encounter Details Date Type Department Care Team (Latest Contact Info) Description 10/26/2014 7:26 AM EST - 10/26/2014 11:59 PM EST Hospital [place] [id number] CLINIC, DR AUDREY Barrow, Hiram Wallis MD [facility] [place] [address] S/P abdominoplasty; Right upper quadrant pain Discharge Disposition: Home Social History Tobacco Use [...] Sign Reading Time Taken Comments Blood Pressure 136/78 10/26/2014 7:35 AM EST Pulse 78 10/26/2014 7:35 AM EST Temperature 36.8 ??C (98.2 ??F) 10/26/2014 7:35 AM ES T Respiratory Rate 16 10/26/2014 7:35 AM EST Oxygen Saturation 100% 10/26/2014 7:35 AM EST Inhaled Oxygen Concentration - - Weight - - Height - - Body Mass Index - - documented in this encounter Medications at Time [...] (SUPER B COMPLEX ORAL) Take by mouth. Ktbtpfihcyywt-Eo-Xvhg- Minerals Tab Take by mouth. Women's one a day gummy polyethylene glycol (MIRALAX) 17 gram/dose PowderIndications:Cons tipation, unspecified constipation type Take 17 g by mouth daily for 30 days. 510 g 6 09/30/2014 10/30/2014 acetaminophen (TYLENOL) 500 mg Tablet Take 2 tablets by mouth every 6 hours as needed for Pain (for MODERATE pain). 06/22/2014 11/25/2014 ursodiol (ACTIGALL) 300 mg CapsuleIndications:cho lelithiasis prevention Take 300 mg by mouth 2 times daily. Indications: Cholelithiasis Prevention 04/28/2019 omeprazole (PRILOSEC) 40 mg capsule Take 40 mg by mouth daily. 04/28/2019 fluticasone-salmeterol (ADVAIR DISKUS) 250-50 mcg/dose diskus inhaler Inhale 1 puff into the lungs every 12 hours. 09/23/2021 documented as of this encounter Progress Notes * Kota Hall MD - 10/26/2014 4:13 PM EST IR Procedure Note A [id number] Procedure: US evaluation of the anterior abdominal wall History: 49 yr old F patient, s/p abdominoplasty on 06/19/14. During the September [address] Barrow, she continued to experience pain in the right lateral sub costal area. A CT scan of the abdomen was performed at [facility] on 09/30/14, demonstrating: Diffuse postsurgical changes [...] glands are within normal limits. No lymphadenopathy. IMPRESSION: Findings consistent with ascending colitis. Etiologies include inflammatory, ischemic and infective. A second CECT scan was performed on 10/19/2014 ([facility]) which showed post operativechanges in the right subcostal area with several [...] examined with US. There is a linear/tubular areaof decreased echogenicity. It is not clearly fluid [...] this area. Again, there is no overlying erythema of the skin. Assessment: 1. No sonographic evidence of fluid collection in the right subcostal region. 2. Mixed echogenicity collection in the lateral aspect of the RLQ of the abdomen, most likely representing organizing hematoma given the lack of objective signs of infection. Given the sonographic appearance, it is unlikely that aspiration +/- drainage would yield any significant volume. Comment: The US findings were discussed with the patient and her at length. Ms. Wong is very frustrated at the discomfort in her right subcostal region and feels it is impacting her quality of life. There is no defined fluid collection present for drainage. Regarding the lateral RLQ of herabdomen, given her minimal discomfort associated with it, she declined an intervention at this time. Resident: Nikolas Joy DO Attending: Molly Hall MD (I was present for the entire evaluation) * Raegan Black PA - 10/26/2014 7:40 AM EST PRE-PROCEDURE VIR NOTE Date of : 1965 Age: 49 y.o. PCP: AVERY CABALLERO MD Referring Physician (if different): Danial Indication: Abdominal pain, Planned Procedure: Possible abdominal drain placement Chief Complaint/Diagnosis: 49 yo female s/p Date of surgery: 06/19/14 Procedure(s): Abdominoplasty, thighplasty Referred from Dr. Barrow's office for concern of possible hematoma vs fluid collection. US guided drain requested. Pertinent Past Medical/Surgical History: Patient Active Problem List Diagnosis Code ??? Abdominal pannus 278.1 ??? 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 Other specified aftercare following surgery V58.49 Allergies Allergen Reactions ??? Latex Other (See Comments) Localized blister/swelling/open skin ??? Meclizine Other (See Comments) unresponsive ??? Tegaderm [Transparent Dressings] Rash Raw skin instantly and hives Current Outpatient Prescriptions on File Prior to Encounter Medication Sig Dispense Refill ??? polyethylene glycol (MIRALAX) 17 gram/dose Powder Take 17 g by mouth daily for 30 days. 510 g 6 ??? senna (SENOKOT) 8.6 mg Tablet Take 1 tablet by mouth daily. ??? acetaminophen (TYLENOL) 500 mg Tablet Take 2 tablets by mouth every 6 hours as needed for Pain (for MODERATE pain). ??? ursodiol (ACTIGALL) 300 mg Capsule Take [...] B COMPLEX ORAL) Take by mouth. ??? Uicpfmmfzazkx-Kx-Evja-Minerals Tab Take by mouth. Women's one a day gummy No current facility-administered medications on file prior to encounter. Pertinent ROS: as per HPI Pertinent Family History: non contributory Social History: n/a Labs: Lab Results Component Value Date WBC 6.7 09/30/2014 HCT 33.0* 09/30/2014 PLATELET 204 09/30/2014 BUN 9 09/30/2014 Lab Results Component Value Date ALKPHOS 149* 09/30/2014 AST 20 09/30/2014 ALBUMIN 4.2 09/30/2014 BILIDIR 0.1 09/30/2014 BILITOT 0.3 09/30/2014 ALT 20 09/30/2014 Physical Exam: pending ASA: Mallampati Class: Assessment / Plan: Referred from Dr. Barrow's office for concern of possible hematoma vs fluid collection. US guided drain requested. Will US in RR prior. Medications to discontinue: none Prophylactic antibiotic: none Planned access site / position: supine * Jeaneth Tracey RN - 10/23/2014 4:52 PM EST ANGIO NURSING DATABASE Name: HANNAH WONG Date of : 1965 AGE 49 y.o. Address: [address] [place] [id number] (home) Mobile: No relevant phone numbers on file. Referring Provider: Hiram Barrow REASON FOR VISIT: US guided abdominal drain placement: s/p abdominoplasty possible hematoma right quadrant Other pertinent information: Please valuate for possible hematoma/seroma right quadrant. Drain placement nad culture Allergies Allergen Reactions ??? Latex Other (See Comments) Localized blister/swelling/open skin ??? Meclizine Other (See Comments) unresponsive ??? Tegaderm [Transparent Dressings] Rash Raw skin instantly and hives Pertinent PMH: Patient Active Problem List Diagnosis Code ??? Abdominal pannus 278.1 ??? 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 Other specified aftercare following surgery V58.49 Pertinent PSH: Past Surgical History Procedure Laterality Date ??? Cranio/maxillofacial surg unlisted ??? Throat surgery procedure unlisted ??? Genital surg proc, female unlisted ??? Musculoskeletal surgery unlisted ??? Gastroenterology procedure ??? Excise excess skin tissue, abdomen, add-on 06/19/2014 ABDOMINOPLASTY EXC,W/ UMBILICAL TRANSPOSITION, FASCIAL PLICATION performed by Hiram Barrow MD at [facility] MA[facility] OR ??? Excise excess skin tissue, thigh 06/19/2014 EXCISION EXCESSIVE SKIN AND TISSUE-THIGH performed by Hiram Barrow MD at [facility] MA[facility] OR ??? Suct jamin lipectomy, low extrem 06/19/2014 SUCTION ASSISTED LIPECTOMY, LOWER EXTREMITY-HIRAL performed by Hiram Barrow MD at [facility] OR ??? Appendectomy ??? Colonoscopy, biopsy N/A 10/06/2014 COLONOSCOPY FLEXIBLE, WITH BX performed by Bassem Norman MD at [facility] ENDOSCOPY ??? Upper gi endoscopy, biopsy N/A 10/06/2014 EGD WITH BIOPSY performed by Bassem Norman MD at [facility] Date/Procedure Med's given/comments Laboratory Results: Lab Results Component Value Date CREATININE 0.53* 09/30/2014 Lab Results Component Value Date K 3.8 09/30/2014 Lab Results Component Value Date PLATELET 204 09/30/2014 Medications: Prior to Admission medications Medication Sig Start Date End Date Taking? Authorizing Provider polyethylene glycol (MIRALAX) 17 gram/dose Powder Take [...] COMPLEX ORAL) Take by mouth. Provider, Historical Rnpimiezrlufk-Ye-Zykb-Minerals Tab Take by mouth. Women's one a day gummy Provider, Historical ++++ FOR OUTPATIENT SCAN'S: I have informed this patient that they require a flag car driver to be present and in the building to drive them home after this procedure. In the absence of a flag car driver, IR will not be able to perform this procedure and will need to reschedule. Pt verbalized understanding of these i nstructions during the pre-procedure education via phone. (initials) documented in this encounter Plan of Treatment Not on file documented as of this encounter Procedures Procedure Name Priority Date/Time Associated Diagnosis Comments IR ALL DRAINAGE PROCEDURES Routine 10/26/2014 8:44 AM EST S/P abdominoplasty Right upper quadrant pain documented in this encounter Results * IR all drainage procedures (10/26/2014 8:44 AM EST) Anatomical Region Laterality Modality X-Ray Angiograph y 10/26/2014 8:44 AM EST Impressions 10/27/2014 9:37 AM EST IMPRESSION: ??Findings consistent with ascending colitis. Etiologies include inflammatory, ischemic and infective. A second CECT scan was performed on 10/19/2014 ([facility]) which showed post operative changes in the [...] the patient and her at length. Ms. Wong is very frustrated at the discomfort in [...] attending Narrative 10/27/2014 9:37 AM EST A [id number] Procedure: ?? US evaluation of the anterior abdominal wall History: 49 yr old F patient, s/p abdominoplasty on 06/19/14. During the September [address] Barrow, she continued to experience pain in the right lateral sub costal area. A CT scan of the abdomen was performed at [facility] on 09/30/14, demonstrating: Diffuse postsurgical changes [...] Note ForKota olson MD - 10/27/2014 A [id number] Procedure: US evaluation of the anterior abdominal wall History: 49 yr old F patient, s/p abdominoplasty on 06/19/14. During theSeptember [address] Barrow, she continued to experience pain in theright lateral sub costal area. [facility]: Diffuse postsurgical changes in [...] second CECT scan was performed on 10/19/2014 ([facility])which showed post operative changes in the right [...] the patient and her husbandat length. Ms. Wong is very frustrated at the discomfort in [...] quadrant documented in this encounter Care Teams Tractor Drill Operator Relationship Specialty Start Date End Date Avery Caballero MD [address] [place] [id number] PCP - General 04/15/14 documented as of this encounter
--- OUTSIDE RECORDS SUMMARY | 2024-04-08 18:09 | XMS_ITS | Encounter Summary ---
[place] [address] Care Team Providers Care Bindery Production Manager Name Role Phone Avery Caballero MD Primary Care Provider [phone] Encounter Details Date Type Department Care Team (Latest Contact Info) Description 09/30/2014 10:53 AM EST - 09/30/2014 11:59 PM [facility] Hospital [place]counter [place] [address] Abdominal pannus Social History Tobacco Use Types [...] (SUPER B COMPLEX ORAL) Take by mouth. Qokarogrydvnl-Di-Nxbe- Minerals Tab Take by mouth. Women's one [...] Name Priority Date/Time Associated Diagnosis Comments CT ABDOMEN AND PELVIS WO CONTRAST Routine 09/30/2014 2:39 PM EST Abdominal pannus documented in this encounter Results * CT abdomen & [...] structures: No suspicious lesions. Procedure Note Sofi Jmaes MD - 09/30/2014 EXAMINATION: CT Abdomen / [...] Visit Diagnoses Diagnosis Abdominal pannus Localized adiposity documented in this encounter Care Teams Bindery Production Manager Relationship Specialty Start Date End Date Avery Caballero MD [address] [place] [address] PCP - General 04/15/14 documented as of this encounter
--- OUTSIDE RECORDS SUMMARY | 2024-04-08 18:09 | XMS_ITS | Encounter Summary ---
Author [facility] [place] [address] Care Team Providers Care Supervising Film Or Videotape Editor Name Role Phone Avery Caballero MD Primary Care Provider [phone] Reason for Visit * Auth/Cert Specialty Diagnoses / Procedures Referred By Kiarra banuelos Referred To Contact Diagnoses Hypertrophy of breast Unspecified hypertrophic and atrophic condition of skin macromastia Procedures PRO REDUCTION OF LARGE BREAST PRO EXCISE EXCESS SKIN TISSUE, ARM PRO SUCT BERTO LIPECTOMY, TRUNK REDUCTION MAMMOPLASTY, HIRAL Referral ID Status Reason Start Date Expiration Date Visits Re quested Visits Authorized [id number] 1 1 Encounter Details Date Type Department Care Team (Latest Contact Info) Description 07/23/2015 10:46 AM [facility] - 07/23/2015 9:13 PM [facility] Hospital En[place] [address] Hiram Barrow MD [facility] [address] [place] [address] Discharge Disposition: Home Social History Tobacco Use [...] Sign Reading Time Taken Comments Blood Pressure 112/57 07/23/2015 7:45 PM EST Pulse 55 07/23/2015 7:45 PM EST Temperature 36.4 ??C (97.5 ??F) 07/23/2015 5:11 PM ES T Respiratory Rate 16 07/23/2015 7:45 PM EST Oxygen Saturation 100% 07/23/2015 7:45 PM EST Inhaled Oxygen Concentration - - [...] is during regular office hours, please call [phone]. If it is after regular office hours, or on weekends or holidays, please call [phone] and ask to speak to the Tour Director air conditioner installer helper for Interventional Radiology. You have received medication [...] is during regular office hours, please call [phone]. If it is after regular office hours, or on weekends or holidays, please call [phone] and ask to speak to the Tour Director air conditioner installer helper for Interventional Radiology. You have received medication [...] good night sleep. Pain (short term and senior care) ?? With any surgery there is some discomfort or pain. We will prescribe pain medication. Take as prescribed and only as needed. OK to take prescription medication or Tylenol. Do not take both. OK to add Ibuprofen 48 hours after surgery. ?? We recommend taking an djco-url-Lckmgte stool softener, such as Colace (docusate) or [...] scheduling, please contact our administrative offices at [phone] ?? For clinical questions, please call our nurses at [phone] ?? Both offices are open Sunday thru Sunday 8a - 5p. With emergencies after hours, call the hospital field artillery radar operator at [phone] and ask for the Plastic Surgery Resident air conditioner installer helper. documented in this encounter Medications at Time [...] (SUPER B COMPLEX ORAL) Take by mouth. Xhwmsniyxhheb-Eb-Xjd n-Minerals Tab Take by mouth. Women's one [...] Operative Note Patient Name: Hannah Ling : [id number] MR#: [id number] Case Date: 07/23/2015 Surgeon: Surgeon(s) and Role: [...] members agreed to proceed according to [facility] protocol. The procedure was begun by getting [...] Bovie for cautery, hemostasis was confirmed. The 15-Icelandic ANJEL drains were then introduced into each [...] Operative Note Patient Name: Hannah Ling : [id number] MR#: [id number] Case Date: 07/23/2015 Surgeon: Surgeon(s) and Role: [...] rendered or confirmed the diagnosis(es). Accession Number: [id number] ?Location: [facility]; A . ?Surgical Pathology DIAGNOSIS A [...] CR-0 07/28/15 ISSAC 07/28/15 Verified by: ? René Montesinos MD ?Pathologist ?(Electronic Signature) The attending pathologist whose [...] submitted. ?? sns 07/28/2015 12:27 PM EST [facility] ABDOMEN / Unknown 07/23/2015 2:37 PM EST 07/23/2015 2:37 PM EST BREAST STRUCTURE / Unknown 07/23/2015 2:37 PM EST 07/23/2015 2:37 PM EST ABDOMEN / Unknown 07/23/2015 2:37 PM EST 07/23/2015 2:37 PM EST ABDOMEN / Unknown 07/23/2015 2:37 PM EST 07/23/2015 2:37 PM EST Hiram Barrow MD PATHOLOGY/CYTOLOGY O LOW Performing Organization Address [facility] Co de Phone Number [facility] [place] [address] * Specimen to Pathology (surgical or derm) (07/23/2015 2:37 PM EST) AP Specimen 07/23/2015 2:37 PM EST 07/23/2015 2:37 PM EST Narrative [facility] - 07/23/2015 2:37 PM EST Specimen requisition ordered. ??Separate Pathology report to follow Hiram Barrow MD PATHOLOGY/CYTOLOGY O LOW Performing Organization Address [facility] Co or Phone Number [facility] * Specimen to Pathology (surgical or derm) (07/23/2015 2:37 PM EST) AP Specimen 07/23/2015 2:37 PM EST 07/23/2015 2:37 PM EST Narrative [facility] - 07/23/2015 2:37 PM EST Specimen requisition ordered. ??Separate Pathology report to follow Hiram Barrow MD PATHOLOGY/CYTOLOGY O LOW Performing Organization Address [facility] Co de Phone Number [facility] * Specimen to Pathology (surgical or derm) (07/23/2015 2:37 PM EST) AP Specimen 07/23/2015 2:37 PM EST 07/23/2015 2:37 PM EST Narrative [facility] - 07/23/2015 2:37 PM EST Specimen requisition ordered. ??Separate Pathology report to follow Hiram Barrow MD PATHOLOGY/CYTOLOGY O RDCANDICE Performing Organization Address [facility] Co de Phone Number [facility] * Specimen to Pathology (surgical or derm) (07/23/2015 2:37 PM EST) AP Specimen 07/23/2015 2:37 PM EST 07/23/2015 2:37 PM EST Narrative [facility] - 07/23/2015 2:37 PM EST Specimen requisition ordered. ??Separate Pathology report to follow Hiram Barrow MD PATHOLOGY/CYTOLOGY O RDCANDICE Performing Organization Address [facility] Co de Phone Number [facility] * POCT HGB (07/23/2015 11:06 AM EST) POC Hemoglobin 12.9 g/dL 07/23/2015 11:0 6 AM EST Hiram Barrow MD POINT OF CARE TEST O RDERABLES [...] Given 07/23/2015 7:22 PM EST 650 mg promethazine (PHENERGAN) 25 mg/mL injection Starting on Sun07/23/15 at 1757, 1 dose, Until Sun07/23/15 at 1800, SHERRIE GONZALES: trellt override promethazine (PHENERGAN) injection 6.25 mg 6.25 [...] Sobeida 07/22/15 at 2014, Until Discontinued, Routine And scopolamine (TRANSDERM-SCOP) 1.5 mg patch Patch Verification (CANCELED) Transdermal, 2 TIMES DAILY, First dose on Sun07/23/15 at 0800, Until Discontinued, Verify scopolamine 1.5 mg patch. And scopolamine (TRANSDERM-SCOP) 1.5 mg patch Patch Removal (CANCELED) Transdermal, EVERY 72 HOURS, First dose on Sun07/25/15 at 2000, Until Discontinued, Remove scopolamine 1.5 mg patch documented in this encounter Care Teams Supervising Film Or Videotape Editor Relationship Specialty Start Date End Date Avery Caballero MD [address] [place] [address] PCP - General 04/15/14 documented as of this encounter
--- OUTSIDE RECORDS SUMMARY | 2024-04-08 18:09 | XMS_ITS | Encounter Summary ---
[place] [address] Care Team Providers Care Authorization Nurse Name Role Phone Avery Caballero MD Primary Care Provider [phone] Reason for Visit * Reason Comments Follow Up Surgery s/p abdominoplasty d os 06/19/14/ thighplasty Encounter Details Date Type Department Care Team (Late st Contact Info) Description 11/25/2014 3:00 PM EDT [place] [address] Hiram Nascimento MD [facility] [place] [address] S/P panniculectomy Discharge Disposition: Home Social History [...] as of this encounter Progress Notes * Hiram Nascimento MD - 11/25/2014 3:11 PM EDT Plastic Surgery Follow Up Note Reason for visit: F/U status post procedure Date of surgery: 06/19/14 Procedure(s): Abdominoplasty, thighplasty Complications: None reported HPI: Hannah is accompanied by her for today's visit. She continues to have discomfort on her right abdomen. She had an appointment with interventional radiology for scan and drain placement. There was not enough fluid to warrant drain placement. She reports she now has pain present on her left side. She says she has no discomfort if she does not move. She has trouble sleeping at night andfrequently wakes up. She also has increases swelling on her left side, it is similar to the discomfort she has on the right. She has a small wound on her right hip from a clip that surfaced, that is drainage from the right hip wound. She and has to change the dressings often. She reports last nighther upper abdomen was warm to the touch and red. It is not today. She denies chills. She thinks shemay have run a fever a couple of times, but has not taken her temperature. She has increased fluid collection of her right thigh. She is leaving December 10 to [place] for 3 weeks Examination: Patient is alert, conversant, comfortable, ambulating Abdominal incision scars are pink and firm maturing positively Umbilicus viable,Incision well healed and viable No palpable hernia or bulge Thigh incisions: Scars pink and firm Small right abdomen wound at drain site Culture obtained Does not appear to be infected Impression: Hannah Wong is a 49 y.o. female who was seen today for follow-up for the above notedprocedure. She continues to have swelling and pain. I cultured the fluid from her right hip wound. I will begin a course of antibiotics and follow up in 1-2 weeks I discussed placing her on a course of Gabapentin and she declines at this time. Plan: 1. Follow up 1-2 weeks 2. Full activity no restrictions 3. Begin course of Keflex I, Hannah Roger, am acting as scribe for Dr Nascimento. All work documented was performed by Dr Nascimento. ???I performed the above scribed service and agree with the accuracy of the note?? Hiram Nascimento MD documented in this encounter Plan of Treatment Not on file documented as of this encounter Procedures Procedure Name Priority Date/Time Associated Diagnosis Comments BODY FLUID CULTURE, AEROBIC Routine 11/25/2014 4:20 PM EDT documented in this encounter Results * Body fluid culture (11/25/2014 4:20 PM EDT) Body Fluid Culture ? Patient Name: HANNAH WONG ?Ordered By: HIRAM NASCIMENTO ? MR#: [id number] ?LOC: ??4M ? /Sex: ??1965 (49 years), ? Female ? PROCEDURE: Body Fluid Culture ?SOURCE: Abdominal Fl ? COLLECTED: 11/25/2014 16:20 ? STARTED: 11/25/2014 16:21 ? STAINS / PREPARATIONS ? Gram Stain Report ? Verified:11/26/19 15 19:18 ? Moderate White Blood Cells seen ? No microorganisms seen. ? FINAL REPORT ? Final Report ? Verified:11/29/19 15 10:18 ? Rare Staphylococcus aureus ? PRELIMINARY REPORT ? Preliminary Report ? Verified:11/27/19 15 10:20 ? Rare Staphylococcus aureus ? SUSCEPTIBILITY RESULTS ? Staphylococcus aureus ? ____ ? BENTLEY Interp ? Ampicillin ?R ? Cefazolin ? S ? Ceftriaxone ? S ? Ciprofloxacin ? S ? Clindamycin ? S ? Erythromycin ?S ? Gentamicin(1) ? S ? Levofloxacin ?S ? Oxacillin ? S ? Penicillin(2) ? R ? Trimethoprim/Sulf a ?S ? Tetracycline ?S ? Vancomycin ?S ? Patient: HANNAH WONG ? MR#: [id number] ? S=Susceptible ??I=Intermediate ??R=Resistant ??NA=Not Applicable ? DDS=Dose dependent-suscept ible ??NS=Non-suscepti ble ? FOOTNOTES ? (1) ? Gentamicin is not appropriate for [place]-therapy. ? (2) ? Penicillin resistant, Nafcillin susceptible Staphylococci are resistant to ? B-lactamase labile ? Penicillins including Ampicillin and Piperacillin, but susceptible to B- ? lactamase sabiha Penicillins ? (Nafcillin), B-lactamase inhibitor combinations, first and second ? generation Cephalosporins including ? Cefazolin, and to Cefepime and Meropenem. ? SENA MILLENNIUM Specimen from abdominal cavity (specimen) 11/25/2014 4:20 PM EDT 11/25/2014 4:20 PM EDT Narrative Resulting Agency Comment Spec In Lab Hiram Nascimento MD MICROBIOLOGY - GENER AL ORDERABLES [facility] documented in this encounter Visit Diagnoses Diagnosis S/P panniculectomy documented in this encounter Care Teams Authorization Nurse Relationship Specialty Start Date End Date Avery Caballero MD [address] [place] [address] PCP - General 04/15/14 documented as of this encounter
--- OUTSIDE RECORDS SUMMARY | 2024-04-08 18:09 | XMS_ITS | Encounter Summary ---
Author Organization [facility] [place] [address] Care Team Providers Care Hr Administrative Assistant Name Role Phone Avery Caballero MD Primary Care Provider [phone] Reason for Visit * Reason Comments Follow Up Surgery abdominoplasty and t highplasty Encounter Details Date Type Department Care Team (Late st Contact Info) Description 07/01/2014 9:00 AM EDT Office [place] [address] Varsha Lima APRN [facility] [place] [address] Other specified aftercare following surgery (Primary Dx) Discharge Disposition: Home Social History [...] * Patient Instructions* Nadya Haile RN - 07/01/2014 9:55 AM EDT Plan: 1. Follow up with Dr. Barrow in 1 month 2. Activity restrictions up to 6 weeks, no heavy lifting, no core engaging exercises. Walking is ok, increasing activity slowly. 3. Continue compression garment up to 6 weeks 4. Remain out of work for another 2-4 weeks, returning when ready We have removed your drain(s) and applied a dressing. You may remove the dressing in 24 hours and shower. After showering, you may cover the drain site(s) with a bandaid. The drain site is typically closed in approximately three days. Please call the clinic at [phone] with any questions or concerns. documented in this encounter Progress Notes * Varsha Lima APRN - 07/01/2014 9:20 AM EDT Plastic Surgery Post Op Note Reason for visit: F/U status post procedure Date of surgery: 06/19/14 Procedure(s): Abdominoplasty, thigh plasty Complications: None reported Pain: 10/10 HPI: Pt reports she is a 10/10 for pain at one of her drain sites, otherwise her discomfort is not too bad. Examination: Patient is alert, conversant, comfortable, ambulating Abdominal incision: CDI, healing well. No collection, no erythema, no evidence of cellulitis. Umbilicus viable, healthy Drains in place with serous output, all drains removed today Thigh incisions healing well, CDI Impression: Hannah Ling is a 49 y.o. female who was seen today for follow-up after the above procedure. Please see the operative note for details. She is doing well in general. All drains removed today. I advised that she will need to remain out of work for at least 2 more weeks, if she wishes to return to work prior to her next appointment with Dr. Barrow, she may call our office. Plan: 1. Follow up with Dr. Barrow in 1 month 2. Activity restrictions up to 6 weeks, no heavy lifting, no core engaging exercises. Walking is ok, increasing activity slowly. 3. Continue compression garment up to 6 weeks 4. Remain out of work for another 2-4 weeks, returning when ready I, Marta Leblanc, am acting as scribe for Varsha Lima. All work documented was performed by Pedro. ???I performed the above scribed service and agree with the accuracy of the note?? VARSHA LIMA APRN documented in this encounter Plan of Treatment Not on file documented as of this encounter Visit Diagnoses Diagnosis Other specified aftercare following surgery- Primary documented in this encounter Care Teams Hr Administrative Assistant Relationship Specialty Start Date End Date Avery Caballero MD [address] [place] [address] PCP - General 04/15/14 documented as of this encounter
--- OUTSIDE RECORDS SUMMARY | 2024-04-08 18:09 | XMS_ITS | Encounter Summary ---
Author Organization [place] [address] Care Team Providers Care Bee Keeper Name Role Phone Avery Caballero MD Primary Care Provider [phone] Encounter Details Date Type Department Care Team (Late st Contact Info) Description 10/14/2014 Orders Only Gastroenterology at [facility] [place], operated by [facility] [address] Yesenia Ac APRN [facility] [place] [address] Abdominal pain, unspecified abdominal location Social History Tobacco Use Types Packs/Day Years [...] as of this encounter Visit Diagnoses Diagnosis Abdominal pain, unspecified abdominal location documented in this encounter Care Teams Bee Keeper Relationship Specialty Start Date End Date Avery Caballero MD [address] [place], [place] [id number] PCP - General 04/15/14 documented as of this encounter
--- OUTSIDE RECORDS SUMMARY | 2024-04-08 18:10 | XMS_ITS | Encounter Summary ---
Author Organization [facility] Address [address] [place] [address] Care Team Providers Care Assistant Maintenance Manager Name Role Phone Avery Caballero MD Primary Care Provider [phone] Reason for Visit * Reason Onset Date Comments Pre-visit Orders 01/02/2013 Needs labs Encounter Details Date Type Department Care Team (Late st Contact Info) Description 01/02/2013 Orders Only [facility] Bariatric Surgery [place] [address] [place], [place] [phone] Desi Rios RN Other and unspecified postsurgical nonabsorption (Primary Dx); Morbid obesity (HCC-CMS); S/P partial gastrectomy Social History Tobacco Use Types Packs/Day Years Used Date Smoking Tobacco: Never Alcohol Use Standard Drinks/Week Comments No 0 (1 standard drink = 0.6 oz pur e alcohol) Sex and Gender Information Value Date Recorded Sex Assigned at Not on file Gender Identity Not on file Sexual Orientation Not on file documented as of this encounter Progress Notes * Desi Rios RN - 01/02/2013 1412 EDT Patient is s/p gastric sleeve and needs post-op labs drawn prior to apt. Labs ordered per Leon Georges PA-C. Lab slip mailed to patient. documented in this encounter Plan of Treatment Not on file documented as of this encounter Visit Diagnoses Diagnosis Other and unspecified postsurgical nonabsorption- Primary Morbid obesity (HCC-CMS) Morbid obesity S/P partial gastrectomy Other postprocedural status documented in this encounter Care Teams Assistant Maintenance Manager Relationship Specialty Start Date End Date Avery Caballero MD [address] [place] [address] PCP - General 12/20/10 documented as of this encounter
--- OUTSIDE RECORDS SUMMARY | 2024-04-08 18:10 | XMS_ITS | Encounter Summary ---
Author Organization [facility] Address [address] [place] [address] Care Team Providers Care Anhydrous Ammonia Production Supervisor Name Role Phone Avery Caballero MD Primary Care Provider [phone] Reason for Referral * (Routine/Next Available) - Closed Specialty Diagnoses / Procedures Referred By Kiarra banuelos Referred To Contact Diagnoses Morbid obesity (HCC-CMS) S/P partial gastrectomy Post-resection malabsorption Procedures VITAMIN D (25,OH) Leon Georges PA-C [address] [place] [phone] Referral ID Status Reason Start Date Expiration Date Visits Re quested Visits Authorized [id number] Closed 03/13/2013 1 1 * (Routine/Next Available) - Closed Specialty Diagnoses / Procedures Referred By Kiarra banuelos Referred To Contact Diagnoses Morbid obesity (HCC-CMS) S/P partial gastrectomy Post-resection malabsorption Procedures THIAMIN (VITAMIN B1), WB Leon Georges PA-C [address] [place] [phone] Referral ID Status Reason Start Date Expiration Date Visits Re quested Visits Authorized [id number] Closed 03/13/2013 1 1 * (Routine/Next Available) - Closed Specialty Diagnoses / Procedures Referred By Contac t Referred To Contact Diagnoses Morbid obesity (HCC-CMS) S/P partial gastrectomy Post-resection malabsorption Procedures PTH INTACT Leon Georges PA-C [address] [place], [place] [phone] Referral ID Status Reason Start Date Expiration Date Visits Re quested Visits Authorized [id number] Closed 03/13/2013 1 1 * (Routine/Next Available) - Closed Specialty Diagnoses / Procedures Referred By Kiarra t Referred To Contact Diagnoses Morbid obesity (HCC-CMS) S/P partial gastrectomy Post-resection malabsorption Procedures IRON Leon Georges PA-C [address] [place] [phone] Referral ID Status Reason Start Date Expiration Date Visits Re quested Visits Authorized [id number] Closed 03/13/2013 1 1 * (Routine/Next Available) - Closed Specialty Diagnoses / Procedures Referred By Kiarra t Referred To Contact Diagnoses Morbid obesity (HCC-CMS) S/P partial gastrectomy Post-resection malabsorption Procedures FERRITIN Leon Georges PA-C [address] [place] [phone] Referral ID Status Reason Start Date Expiration Date Visits Re quested Visits Authorized [id number] Closed 03/13/2013 1 1 * (Routine/Next Available) - Closed Specialty Diagnoses / Procedures Referred By Contac t Referred To Contact Diagnoses Morbid obesity (HCC-CMS) S/P partial gastrectomy Post-resection malabsorption Procedures HEMAGRAM Leon Georges PA-C [address] [place] [phone] Referral ID Status Reason Start Date Expiration Date Visits Re quested Visits Authorized [id number] Closed 03/13/2013 1 1 * (Routine/Next Available) - Closed Specialty Diagnoses / Procedures Referred By Contac t Referred To Contact Diagnoses Morbid obesity (HCC-CMS) S/P partial gastrectomy Post-resection malabsorption Procedures CREATININE Leon Georges PA-C [address] [place], [place] [phone] Referral ID Status Reason Start Date Expiration Date Visits Re quested Visits Authorized [id number] Closed 03/13/2013 1 1 * (Routine/Next Available) - Closed Specialty Diagnoses / Procedures Referred By Contac t Referred To Contact Diagnoses Morbid obesity (HCC-CMS) S/P partial gastrectomy Post-resection malabsorption Procedures CALCIUM Leon Georges PA-C [address] [place], [place] [phone] Referral ID Status Reason Start Date Expiration Date Visits Re quested Visits Authorized [id number] Closed 03/13/2013 1 1 * (Routine/Next Available) - Closed Specialty Diagnoses / Procedures Referred By Contac t Referred To Contact Diagnoses Morbid obesity (HCC-CMS) S/P partial gastrectomy Post-resection malabsorption Procedures VITAMIN B12 Leon Georges PA-C [address] [place] [phone] Referral ID Status Reason Start Date Expiration Date Visits Re quested Visits Authorized [id number] Closed 03/13/2013 1 1 Reason for Visit * Reason Comments Obesity Post Op Sleeve 6 Mon ths Encounter Details Date Type Department Care Team (Late st Contact Info) Description 03/13/2013 15:45 EDT Office Visit [facility] Bariatric Surgery - [place] [address] [place] [address] Leon Georges, PA-C [address] [place] [address] [address] [place] [address] Morbid obesity (HCC-CMS) (Primary Dx); S/P partial gastrectomy; Post-resection malabsorption Discharge Disposition: Auto Discharge Social History Tobacco Use Types Packs/Day Years [...] Sign Reading Time Taken Comments Blood Pressure 116/82 03/13/2013 1544 EDT Pulse 68 03/13/2013 1544 EDT Temperature - - Respiratory Rate - - Oxygen Saturation - - Inhaled Oxygen Concentration - - Weight 72.4 kg (159 lb 9.6 oz) 03/13/2013 1544 E DT Height 149.7 cm (4' 10.94) 03/13/2013 1544 EDT Body Mass Index 32.3 03/13/2013 1544 EDT documented in this encounter Discharge Disposition Disposition Code Departure Means Destination Auto Discharge documented in this encounter Progress Notes * Charlotte Lima, RD - 03/13/2013 1612 EDT Nutrition Post Op Visit: Gastric Sleeve Subjective: Patient returns to clinic for post op nutritional counseling following bariatric surgery 6 months ago. Doing well with no real food intolerances. Still has portion restriction so uses a protein shake plus protein powder daily to keep her protein intake 65-70 g per day Questionnaire Reviewed: Yes Intolerance Episodes: no Food Intolerances: None but avoids starches Current Exercise: Walking 60 min 5 times per week Objective: Current Weight: Wt Readings from Last 1 Encounters: 03/13/13 72.394 kg (159 lb 9.6 oz) Current BMI: Body mass index is Body mass index is 32.30 kg/(m^2).. Total Weight Loss: Total Loss in lbs (Weight from Initial Consult - Today's Weight): 91.4 lbs Weight Change since Last Visit:-12.8 lb, since surgery lost 51 lb Supplement Usage: Type Amount MVT B12 Calcium w/Vit D caltrate 2 Vit D 2000 IU Other: B6 Recent Labs: WNL! Assessment: Adequate Meal Frequency: Yes Adequate Meal Composition: Yes Exercise Adequacy: Yes Nutritional Issues: excellent progress with great weight loss, intake and exercise. Labs all WNL Plan: Continue current diet and exercise Education Provided: None * Leon Georges PA - 03/13/2013 5132 EDT 03/13/2013 Hannah Ling is here in follow-up to her laparoscopic sleeve gastrectomy. The weight trend for the patient is: Weight at initial consult: 113.853 kg (251 lb), to 78.2 kg (172 lb 6.4 oz) [12/12/2012] at the last post-op visit to today's Weight : 72.394 kg (159 lb 9.6 oz). PROBLEM LIST Patient Active Problem List Diagnoses ??? Morbid obesity ??? Asthma ??? Hiatal hernia ??? Gastroesophageal reflux disease ??? GERD (gastroesophageal reflux disease) ??? S/P partial gastrectomy SUBJECTIVE: Emesis: No complaints of emesis Nausea: No complaints of nausea Increased Volume Tolerance: no Abdominal Pain: No complaints of abdominal pain Lightheadedness: No complaints of lightheadedness Bowel Function: Normal Pannus: No problems related to pannus reported OBJECTIVE: General Appearance: healthy appearing, alert and in no apparent distress Abdomen: Incision well-healed Extremities: Normal Skin: Normal ASSESSMENT: Doing well, Expected course without obvious complications and Weight Loss: Good, labs reviewed - all look good PLAN: 1. Return to clinic in 3 month(s). 2. Orders Placed This Encounter Procedures ??? Vitamin B12 Standing Status: Future Number of Occurrences: Standing Expiration Date: 03/13/2014 ??? Calcium Standing Status: Future Number of Occurrences: Standing Expiration Date: 03/13/2014 ??? Creatinine Standing Status: Future Number of Occurrences: Standing Expiration Date: 03/13/2014 ??? Hemagram Standing Status: Future Number of Occurrences: Standing Expiration Date: 03/13/2014 ??? Ferritin Standing Status: Future Number of Occurrences: Standing Expiration Date: 03/13/2014 ??? Iron Standing Status: Future Number of Occurrences: Standing Expiration Date: 03/13/2014 ??? PTH Intact Standing Status: Future Number of Occurrences: Standing Expiration Date: 03/13/2014 ??? Thiamin (Vit B1), WB Standing Status: Future Number of Occurrences: Standing Expiration Date: 03/13/2014 ??? Vitamin D (25,OH) Standing Status: Future Number of Occurrences: Standing Expiration Date: 03/13/2014 3. Labs before next visit Seen and discussed with Clinical Physician Assistant at this visit. TIFFANY Fuentes 03/13/2013 16:07 * Dayanara Reyez - 03/13/2013 1554 EDT 30-Day Plus Bariatric Surgery Postop Questionnaire Anticoagulation initiated for presumed/confirmed DVT/PE? No Incisional hernia noted on exam? No Sleep Apnea requiring CPAP or BiPap? No GERD requiring daily use of PPI or H2 blockers? Yes Musculoskeletal Disease? Yes If yes, is activity limited by pain? No If yes, is daily medication used? No If yes, new surgical intervention performed or planned? No Any visit to an outside hospital including ER visits and admissions (include date of admission and discharge and reason)? No Any surgical operations or procedures performed at an outside hospital (date of admission and discharge and suspected reason for admission) No Dayanara Reyez 03/13/2013 15:54 documented in this encounter Miscellaneous Notes * Scanned Note-Null - LEAF SUCKER OPERATOR, SCAN 2 - 03/23/2013 1602 EDT documented in this encounter Plan of Treatment Not on file documented as of this encounter Results * VITAMIN D (25,OH) (05/22/2013) 25OH Vitamin D Tot, External 33.2 [facility] Blood specimen (specimen) 05/22/2013 Leon Zeng Chutter-Cressy PA-C CHEMISTRY & BLOOD GAS ORDERABLES [facility] * THIAMIN (VITAMIN B1), WB (05/22/2013) Thiamine, External 117 [facility] Comment, External [facility] Blood specimen (specimen) 05/22/2013 Leon Zeng Chutter-Cressy PA-C CHEMISTRY & BLOOD GAS ORDERABLES [facility] * PTH INTACT (05/22/2013) PTH, External 50 [facility] Blood specimen (specimen) 05/22/2013 Leon Zeng [employer]op[employer]ter-Cressy PA-C CHEMISTRY & BLOOD GAS ORDERABLES [facility] * IRON (05/22/2013) Iron, External 74 [facility] Blood specimen (specimen) 05/22/2013 Leon A Chutter-Cressy PA-C CHEMISTRY & BLOOD GAS ORDERABLES [facility] * FERRITIN (05/22/2013) Ferritin, External 34 [facility] Blood specimen (specimen) 05/22/2013 Leon Ruizer-[employer]sy PA-C CHEMISTRY & BLOOD GAS ORDERABLES [facility] * HEMAGRAM (05/22/2013) HCT, External 40.4 [facility] MCH, External 29.5 [facility] MCV, External 88.8 [facility] MCHC, External 33.2 [facility] Hemoglobin, External 13.4 [facility] WBC, External 5.37 [facility] RBC, External 4.55 [facility] PLT, External 149 [facility] RDW-CV, External 12.5 [facility] Blood specimen (specimen) 05/22/2013 Leon Ruizer-[employer] PA-C HEMATOLOGY & PF4 ORDERABLES Performing Organization Address City/[facility]/ZIP Co de Phone Number [facility] * CREATININE (05/22/2013) Creatinine, External 0.7 [facility] GFR, Calculated, External >60 [facility] Blood specimen (specimen) 05/22/2013 Leon Ruizer-[employer] PA-C CHEMISTRY & BLOOD GAS ORDERABLES [facility] * CALCIUM (05/22/2013) Calcium, External 9.0 [facility] Calculated Calcium, External [facility] Blood specimen (specimen) 05/22/2013 Leon BurrellU2opia Mobileer-Cressy PA-C CHEMISTRY & BLOOD GAS ORDERABLES [facility] * VITAMIN B12 (05/22/2013) Vitamin B-12, External 640 [facility] Blood specimen (specimen) 05/22/2013 Leon Georges PA-C CHEMISTRY & BLOOD GAS ORDERABLES [facility] documented in this encounter Visit Diagnoses Diagnosis Morbid obesity (HCC-CMS)- Primary Morbid obesity S/P partial gastrectomy Other postprocedural status 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
--- OUTSIDE RECORDS SUMMARY | 2024-04-08 18:10 | XMS_ITS | Encounter Summary ---
Author Organization [facility] Address [address] [place] [address] Care Team Providers Care Cigar Binder Name Role Phone Avery Caballero MD Primary Care Provider [phone] Reason for Referral * (Routine/Next Available) - Closed Specialty Diagnoses / Procedures Referred By Kiarra banuelos Referred To Contact Diagnoses Morbid obesity (HCC-CMS) S/P partial gastrectomy Post-resection malabsorption Procedures VITAMIN D (25,OH) Leon Georges PA-C [address] [place] [phone] Referral ID Status Reason Start Date Expiration Date Visits Re quested Visits Authorized [id number] Closed 06/12/2013 1 1 * (Routine/Next Available) - Closed Specialty Diagnoses / Procedures Referred By Kiarra banuelos Referred To Contact Diagnoses Morbid obesity (HCC-CMS) S/P partial gastrectomy Post-resection malabsorption Procedures THIAMIN (VITAMIN B1), WB Leon Georges PA-C [address] [place] [phone] Referral ID Status Reason Start Date Expiration Date Visits Re quested Visits Authorized [id number] Closed 06/12/2013 1 1 * (Routine/Next Available) - Closed Specialty Diagnoses / Procedures Referred By Contac t Referred To Contact Diagnoses Morbid obesity (HCC-CMS) S/P partial gastrectomy Post-resection malabsorption Procedures PTH INTACT Leon Georges PA-C [address] [place], [place] [phone] Referral ID Status Reason Start Date Expiration Date Visits Re quested Visits Authorized [id number] Closed 06/12/2013 1 1 * (Routine/Next Available) - Closed Specialty Diagnoses / Procedures Referred By Kiarra t Referred To Contact Diagnoses Morbid obesity (HCC-CMS) S/P partial gastrectomy Post-resection malabsorption Procedures IRON Leon Georges PA-C [address] [place] [phone] Referral ID Status Reason Start Date Expiration Date Visits Re quested Visits Authorized [id number] Closed 06/12/2013 1 1 * (Routine/Next Available) - Closed Specialty Diagnoses / Procedures Referred By Kiarra t Referred To Contact Diagnoses Morbid obesity (HCC-CMS) S/P partial gastrectomy Post-resection malabsorption Procedures FERRITIN Leon Georges PA-C [address] [place] [phone] Referral ID Status Reason Start Date Expiration Date Visits Re quested Visits Authorized [id number] Closed 06/12/2013 1 1 * (Routine/Next Available) - Closed Specialty Diagnoses / Procedures Referred By Kiarra t Referred To Contact Diagnoses Morbid obesity (HCC-CMS) S/P partial gastrectomy Post-resection malabsorption Procedures CREATININE Leon Georges PA-C [address] [place], [place] [phone] Referral ID Status Reason Start Date Expiration Date Visits Re quested Visits Authorized [id number] Closed 06/12/2013 1 1 * (Routine/Next Available) - Closed Specialty Diagnoses / Procedures Referred By Contac t Referred To Contact Diagnoses Morbid obesity (HCC-CMS) S/P partial gastrectomy Post-resection malabsorption Procedures HEMAGRAM Leon Georges PA-C [address] [place], [place] [phone] Referral ID Status Reason Start Date Expiration Date Visits Re quested Visits Authorized [id number] Closed 06/12/2013 1 1 * (Routine/Next Available) - Closed Specialty Diagnoses / Procedures Referred By Contac t Referred To Contact Diagnoses Morbid obesity (HCC-CMS) S/P partial gastrectomy Post-resection malabsorption Procedures CALCIUM Leon Georges PA-C [address] [place], [place] [phone] Referral ID Status Reason Start Date Expiration Date Visits Re quested Visits Authorized [id number] Closed 06/12/2013 1 1 * (Routine/Next Available) - Closed Specialty Diagnoses / Procedures Referred By Contac t Referred To Contact Diagnoses Morbid obesity (HCC-CMS) S/P partial gastrectomy Post-resection malabsorption Procedures VITAMIN B12 Leon Georges PA-C [address] [place], [place] [phone] Referral ID Status Reason Start Date Expiration Date Visits Re quested Visits Authorized [id number] Closed 06/12/2013 1 1 Reason for Visit * Reason Comments Obesity Post Op Sleeve Sun Check Encounter Details Date Type Department Care Team (Late st Contact Info) Description 06/12/2013 15:45 EDT Office Visit [facility] Bariatric Surgery [facility] [address] [place] [address] Leon Georges, PA-C [address] [place] [address] [address] [place] [phone] Morbid obesity (HCC-CMS) (Primary Dx); [...] Sign Reading Time Taken Comments Blood Pressure 108/62 06/12/2013 1541 EDT Pulse 60 06/12/2013 1541 EDT Temperature - - Respiratory Rate - - Oxygen Saturation - - Inhaled Oxygen Concentration - - Weight 72.1 kg (159 lb) 06/12/2013 1541 EDT Height 149.7 cm (4' 10.94) 06/12/2013 1541 EDT Body Mass Index 32.18 06/12/2013 1541 EDT documented in this encounter Discharge Disposition Disposition Code Departure Means Destination Auto Discharge documented in this encounter Progress Notes * Leon Georges PA - 06/12/2013 1639 EDT 06/12/2013 Hannah Ling is here in follow-up to her laparoscopic sleeve gastrectomy. The weight trend for the patient is: Weight at initial consult: 113.853 kg (251 lb), to 72.394 kg (159 lb 9.6 oz) [03/13/2013] at the last post-op visit to today's Weight : 72.122 kg (159 lb). PROBLEM LIST Patient Active Problem List Diagnoses ??? Morbid obesity ??? Asthma ??? Hiatal hernia ??? Gastroesophageal reflux disease ??? GERD (gastroesophageal reflux disease) ??? S/P partial gastrectomy SUBJECTIVE: Emesis: occasional complaints of emesis with rice and chicken Nausea: No complaints of nausea Increased Volume Tolerance: no Abdominal Pain: No complaints of abdominal pain Lightheadedness: No complaints of lightheadedness Bowel Function: Normal Pannus: No problems related to pannus reported OBJECTIVE: General Appearance: healthy appearing, alert and in no apparent distress Abdomen: Incision well-healed Extremities: Normal Skin: Normal ASSESSMENT: Doing well, Expected course without obvious complications and Weight Loss: Good. Labs reviewed - all look good PLAN: 1. Return to clinic in 3 month(s). 2. Orders Placed This Encounter Procedures ??? Vitamin B12 Standing Status: Future Number of Occurrences: Standing Expiration Date: 06/12/2014 ??? Calcium Standing Status: Future Number of Occurrences: Standing Expiration Date: 06/12/2014 ??? Hemagram Standing Status: Future Number of Occurrences: Standing Expiration Date: 06/12/2014 ??? Creatinine Standing Status: Future Number of Occurrences: Standing Expiration Date: 06/12/2014 ??? Ferritin Standing Status: Future Number of Occurrences: Standing Expiration Date: 06/12/2014 ??? Iron Standing Status: Future Number of Occurrences: Standing Expiration Date: 06/12/2014 ??? PTH Intact Standing Status: Future Number of Occurrences: Standing Expiration Date: 06/12/2014 ??? Thiamin (Vit B1), WB Standing Status: Future Number of Occurrences: Standing Expiration Date: 06/12/2014 ??? Vitamin D (25,OH) Standing Status: Future Number of Occurrences: Standing Expiration Date: 06/12/2014 3. Labs before next visit Seen and discussed with Director Semiconductor at this visit. TIFFANY Fuentes 06/12/2013 16:39 * Charlotte Lima, RD - 06/12/2013 1612 EDT Nutrition Post Op Visit: Gastric Sleeve Subjective: Patient returns to clinic for post op nutritional counseling following bariatric surgery 9 months ago. Had 2 regurg episodes with rice and pork-never again! Would like to lose more weight, frustrated that she hasn't Questionnaire Reviewed: Yes Intolerance Episodes: yes as above Food Intolerances: pork, rice, bread, grapes Current Exercise: Gym for cardio and weights Objective: Current Weight: Wt Readings from Last 1 Encounters: 06/12/13 72.122 kg (159 lb) Current BMI: Body mass index is Body mass index is 32.18 kg/(m^2).. Total Weight Loss: Total Loss in lbs (Weight from Initial Consult - Today's Weight): 92 lbs Weight Change since Last Visit:-0.6 lb, since surgery lost 51.6 lb Supplement Usage: Type Amount MVT W/ Fe B12 Vit D 2000 IU B Complex Recent Labs: WNL! Assessment: Adequate Meal Frequency: Yes Adequate Meal Composition: Yes Exercise Adequacy: Yes Nutritional Issues: weight stabilizing with good intake and exercise. Encouraged her to stay positive-she has lost >60% EBW and is above our average for weight loss. Hopefully, the weight trainingwill begin to result in some further loss. Labs great! Plan: Continue current diet and exercise Education Provided: None * Dayanara You - 06/12/2013 1534 EDT 30-Day Plus Bariatric Surgery Postop Questionnaire [...] suspected reason for admission) No Dayanara Reyez 06/12/2013 15:53 documented in this encounter Plan of Treatment Not on file documented as of this encounter Results * VITAMIN D (25,OH) (09/02/2013) 25OH Vitamin D Tot, External 26.7 [facility] Blood specimen (specimen) 09/02/2013 Leon A Chutter-Cressy PA-C CHEMISTRY & BLOOD GAS ORDERABLES [facility] * THIAMIN (VITAMIN B1), WB (09/02/2013) Thiamine, External 106 [facility] Comment, External [facility] Blood specimen (specimen) 09/02/2013 Leon A Chutter-Cressy PA-C CHEMISTRY & BLOOD GAS ORDERABLES [facility] * PTH INTACT (09/02/2013) PTH, External 45 [facility] Blood specimen (specimen) 09/02/2013 Leon Zeng Chutter-Cressy PA-C CHEMISTRY & BLOOD GAS ORDERABLES [facility] * IRON (09/02/2013) Iron, External 85 [facility] Blood specimen (specimen) 09/02/2013 Leon A Chutter-Cressy PA-C CHEMISTRY & BLOOD GAS ORDERABLES [facility] * FERRITIN (09/02/2013) Ferritin, External 27 [facility] Blood specimen (specimen) 09/02/2013 Leon A Chutter-Cressy PA-C CHEMISTRY & BLOOD GAS ORDERABLES [facility] * CREATININE (09/02/2013) Creatinine, External 0.7 [facility] GFR, Calculated, External [facility] Blood specimen (specimen) 09/02/2013 Leon BurrellKopi PA-C CHEMISTRY & BLOOD GAS ORDERABLES Performing Organization Address City/[facility]/ZIP Co de Phone Number [facility] * HEMAGRAM (09/02/2013) HCT, External 42.6 [facility] MCH, External 29.5 [facility] MCV, External 87.3 [facility] MCHC, External 33.8 [facility] Hemoglobin, External 14.4 [facility] WBC, External 4.85 [facility] RBC, External 4.88 [facility] PLT, External 162 [facility] RDW-CV, External 12.8 [facility] Blood specimen (specimen) 09/02/2013 Leon LewisWave - Private Location App PA-C HEMATOLOGY & PF4 ORDERABLES Performing Organization Address City/[facility]/ZIP Co de Phone Number [facility] * CALCIUM (09/02/2013) Calcium, External 9.2 [facility] Calculated Calcium, External [facility] Blood specimen (specimen) 09/02/2013 Leon RuizerWave - Private Location App PA-C CHEMISTRY & BLOOD GAS ORDERABLES [facility] * VITAMIN B12 (09/02/2013) Vitamin B-12, External 516 [facility] Blood specimen (specimen) 09/02/2013 Narrative Authorizing Provider Result Hussain Georges PA-C CHEMISTRY & BLOOD GAS ORDERABLES [facility] documented in this encounter Visit Diagnoses Diagnosis Morbid obesity (HCC-CMS)- Primary Morbid obesity S/P partial gastrectomy Other postprocedural status Post-resection malabsorption Other and unspecified postsurgical nonabsorption documented in this encounter Care Teams Cigar Binder Relationship Specialty Start Date End Date Avery Caballero MD [address] [place] [id number] PCP - General 12/20/10 documented as of this encounter
--- OUTSIDE RECORDS SUMMARY | 2024-04-08 18:10 | XMS_ITS | Encounter Summary ---
Author Organization [facility] Address [address] [place] [address] Care Team Providers Care Homemaker Companion Name Role Phone Avery Caballero MD Primary Care Provider [phone] Reason for Visit * Reason Comments Obesity Post Op Sleeve 6 wee k Encounter Details Date Type Department Care Team (Late st Contact Info) Description 10/31/2012 16:00 EST Office Visit [facility] Bariatric Surgery [address] [phone] Bebeto Culver MD [address] [place] [phone] S/P partial gastrectomy (Primary Dx) Discharge Disposition: Auto Discharge Social History Tobacco [...] Sign Reading Time Taken Comments Blood Pressure 110/62 10/31/2012 1559 EST Pulse 64 10/31/2012 1559 EST Temperature - - Respiratory Rate - - Oxygen Saturation - - Inhaled Oxygen Concentration - - Weight 83.6 kg (184 lb 6.4 oz) 10/31/[address] Height 149.7 cm (4' 10.94) 10/31/2012 1559 EST Body Mass Index 37.32 10/31/2012 1559 EST documented in this encounter Ordered Prescriptions Prescription Sig Dispensed Refills Start Date End Da te ursodiol (ACTIGALL) 300 mg capsule Take 1 Cap by mouth 2 times daily. 60 Cap 12 10/31/2012 documented in this encounter Discharge Disposition Disposition Code Departure Means Destination Auto Discharge documented in this encounter Progress Notes * Charlotte Lima RD - 10/31/2012 2246 EST Nutrition Post Op Visit: Gastric Sleeve Subjective: Patient returns to clinic for post op nutritional counseling following bariatric surgery 6 weeks ago. Doing well, slowly adding food into diet. Getting 60 gr protein most days with shake and foods Questionnaire Reviewed: Yes Intolerance Episodes: no Food Intolerances: None yet Current Exercise: walking Objective: Current Weight: Wt Readings from Last 1 Encounters: 10/31/12 83.643 kg (184 lb 6.4 oz) Current BMI: Body mass index is Body mass index is 37.32 kg/(m^2).. Total Weight Loss: Total Loss in lbs (Weight from Initial Consult - Today's Weight): 66.6 lbs Weight Change since Last Visit:-5.6 lb, since surgery lost 26.2 lb Supplement Usage: Type Amount MVT chew Assessment: Adequate Meal Frequency: Yes Adequate Meal Composition: Yes Exercise Adequacy: Yes Nutritional Issues: good intake and weight loss. Reviewed supplements to start now: calcium w/D 2 per day, B12, B complex. Advised she slowly add more variety especially fruit and veggies to diet as tolerated Plan: Change intake-slowly add more variety as tolerated Increase exercise Supplement Changes-start calcium w/D 2 per day, B12, B complex Get labs before next visit Education Provided: Other -supplements * Bebeto Culver MD - 10/31/2012 1609 EST 10/31/2012 Hannah Ling is here in follow-up to her laparoscopic sleeve gastrectomy. The weight trend for the patient is: Weight at initial consult: 113.853 kg (251 lb), to 86.183 kg (190 lb) [10/10/2012] at the last post-op visit to today's Weight : 83.643 kg (184 lb 6.4 oz). PROBLEM LIST Patient Active Problem List [...] related to pannus reported OBJECTIVE: General Appearance: obese Abdomen: Incision well-healed Extremities: No clubbing, cyanosis or edema Skin: Normal ASSESSMENT: Doing well and Weight Loss: good PLAN: 1. Return to clinic in 6 week(s). 2. No orders of the defined types were placed in this encounter. 3. Labs actigal started Seen and discussed with Parcel Post Order Clerk at this visit. Bebeto Culver MD 10/31/2012 16:09 * Dayanara Reyez - 10/31/2012 1698 EST 30-Day Plus Bariatric Surgery Postop Questionnaire Anticoagulation [...] suspected reason for admission) No Dayanara Reyez 10/31/2012 16:03 documented in this encounter Plan of Treatment Not on file documented as of this encounter Visit Diagnoses Diagnosis S/P partial gastrectomy- Primary Other postprocedural status documented in this encounter Care Teams Homemaker Companion Relationship Specialty Start Date End Date Avery Caballero MD [address] [place] [address] PCP - General 12/20/10 documented as of this encounter
--- OUTSIDE RECORDS SUMMARY | 2024-04-08 18:10 | XMS_ITS | Encounter Summary ---
Author Organization [facility] Address [address] [place] [address] Care Team Providers Care Ordnance Technician Name Role Phone Avery Caballero MD Primary Care Provider [phone] Reason for Visit * Reason Comments Obesity H Encounter Details Date Type Department Care Team (Late st Contact Info) Description 08/30/2012 12:30 EST Office Visit [facility] Bariatric Surgery [address] [id number] Leon Georges, PA-C [address] [place] [address] [address] [place] [address] Morbid obesity (HCC-CMS) (Primary Dx); Preop examination; Asthma; GERD (gastroesophageal reflux disease) Social History Tobacco Use Types Packs/Day Years [...] Sign Reading Time Taken Comments Blood Pressure 110/60 08/30/2012 1235 EST Pulse 64 08/30/2012 1235 EST Temperature - - Respiratory Rate - - Oxygen Saturation - - Inhaled Oxygen Concentration - - Weight 94.3 kg (208 lb) 08/30/2012 1235 EST Height 149.7 cm (4' 10.94) 08/30/2012 1235 EST Body Mass Index 42.1 08/30/2012 1235 EST documented in this encounter Patient Instructions * Patient Instructions* Leon Georges PA - 08/30/2012 12:54 EST Take protonix, advair and flonase day of surgery as well as albuterol if needed Do not take vitamins, singulair or ibuprofen Nothing to eat or drink after midnight on the day of surgery. documented in this encounter Progress Notes * Leon Georges PA - 08/30/2012 1347 ESTAddended by: LEON GEORGES on: 08/30/2012 13:47 Modules accepted: Orders * Charlotte Lima RD - 08/30/2012 1258 EST Medical Nutrition Evaluation-PRE OP NOTE Bariatric Clinic Nutrition Pre-op Visit Visit Number: 11 Desired surgery: Gastric Sleeve Subjective: Lots of company over xmas. Lots of restaurant meals-upset with herself for weight gain Food logs: on [email or web address] Meal pattern: 3 Average caloric intake:[id number] janay even over xmas! Meal composition: well balanced with lots of lean protein, fruits and veggies Snacking: Exercise: walking Objective: Weight: 208 lb Weight loss from last visit: +3.8 lb Total weight loss: Weight loss goal: Total Loss in lbs (Weight from Initial Consult - Today's Weight): 43 lbs Approximately 12 lb Surgery Date:09/23/12 Significant Medications and Supplements: multivitamin, Vit D, B12 Assessment: Patient has met weight loss requirement for surgery Comments: weight regain over the holiday. Back on her usual diet of 1000 janay and has increased her walking. Reviewed her pre op liquid diet-patient has product ready. Reviewed her post op diet and provided a summary handout Plan: Diet Goals: Keep food records, Eat more slowly and Pre-op liquid diet start date 09/13/12 Exercise Goals: Maintain current exercise Weight Loss Goal: Approximately 12 lb Weight Loss Remaining to Goal: Approximately met Reviewed: Food/Activity Record and Post Operative Diet Next Visit: Post-up follow up visit * Leon Georges PA - 08/30/2012 1249 EST Subjective: Patient ID: Hannah Ling is an 47 y.o. female. Chief Complaint Patient presents with ??? Obesity H HPI preop for lap sleeve gastrectomy Patient Active Problem List Diagnoses ??? Morbid obesity ??? Asthma ??? Hiatal hernia ??? Gastroesophageal reflux disease History reviewed. No pertinent past medical history. Past Surgical History Procedure Date ??? Hysterectomy ??? Appendectomy History reviewed. No pertinent family history. Social History Substance Use Topics ??? Smoking status: Never Smoker ??? Smokeless tobacco: Not on file ??? Alcohol Use: No Current Outpatient Prescriptions on File Prior to Visit Medication Sig Dispense Refill ??? naproxen (NAPROSYN) 500 mg tablet Take 500 mg by mouth 2 times daily. ??? cholecalciferol, Vitamin D3, (VITAMIN D3) 2,000 unit tablet Take 2,000 Units by mouth daily. ??? pyridoxine (VITAMIN B6) 50 mg tablet Take 50 mg by mouth daily. ??? cyanocobalamin 500 mcg tablet Take 500 mcg by mouth daily. ??? pantoprazole (PROTONIX) 40 mg tablet Take 1 Tab by mouth daily. 30 Tab 12 ??? Multivitamins with Minerals Tab Take 1 Tab by mouth daily. ??? fluticasone-salmeterol (ADVAIR DISKUS) 250-50 mcg/dose diskus inhaler Inhale 1 Puff as directed2 times daily. ??? fluticasone (FLONASE) 50 mcg/actuation nasal spray 1 [place] by Nasal route 2 times daily. ??? montelukast (SINGULAIR) 10 mg tablet Take 10 mg by mouth daily. ??? ALBUTEROL INHL Inhale 1 Puff as directed as needed. Allergies Allergen Reactions ??? Latex, Natural Rubber Hives and Swelling ROS Constitutional: No fevers, chills. HEENT: No upper respiratory infection symptoms Cardiovascular: No chest pain, no shortness of breath, able to walk up a flight of stairs with no dyspnea or pain. Respiratory: No wheezing - no use of rescue inhaler in years Renal: No dysuria or difficulty starting stream of urine GI: No nausea or vomiting, no diarrhea or constipation Endocrine: No polyuria or polydipsia Hematology: No excessive bruising or bleeding, no history of DVT Eyes: No acute changes Neurology: No slurred speech, no headache, no unilateral weakness, one episode of vertigo last week- seeing neurologist next week. Musculoskeletal: No muscle or joint pain except left knee s/p surgery Allergies/immunologic: mild seasonal allergies under very good control Objective: BP 110/60 Pulse 64 Ht 149.7 cm (58.94) Wt 94.348 kg (208 lb) BMI 42.10 kg/m2 Physical Exam General: No apparent distress, appears stated age HEENT: Moist mucous membranes Neck: No goiter Lungs: Clear to auscultation bilaterally Heart: Regular rate and rhythm Abdomen: Soft, non-distended, non-tender, +bowel sounds Musculoskeletal: Normal range of motion Neurological: Cranial nerves II-XII intact, strength intact in upper and lower extremities, patellar reflex 2+ bilaterally UGI with hiatal hernia EGD with no h pylori Assessment: preop for lap sleeve gastrectomy. OK for surgery - EKG done at [facility][1] during vertigo workup with no signs of ischemia or arrythmia except sinus tachycardia. Plan: Hannah was seen today for obesity. Diagnoses and associated orders for this visit: Morbid obesity - Full Code; Standing - Place Sequential Compression Device; Standing - Insert Peripheral IV; Standing - lactated ringers (LR) infusion; Inject 25 mL/hr into the vein continuous. - Status: Inpatient DOSA/DOPA Day of Surgery/Procedure Admisssion; Standing - EKG 12 lead - Type and Screen; Standing - ceFAZolin (ANCEF) syringe 2 g; Inject 20 mL into the vein PRE-OP ONCE. - Nursing Communication - Patient is not on Aspirin ; Standing - Nursing Communication: Patient is not on a beta swathi ; Standing - heparin injection 5,000 Units; Inject 1 mL into the skin PRE-OP ONCE. Preop examination - Full Code; Standing - Place Sequential Compression Device; Standing - Insert Peripheral IV; Standing - lactated ringers (LR) infusion; Inject 25 mL/hr into the vein continuous. - Status: Inpatient DOSA/DOPA Day of Surgery/Procedure Admisssion; Standing - EKG 12 lead - Type and Screen; Standing - ceFAZolin (ANCEF) syringe 2 g; Inject 20 mL into the vein PRE-OP ONCE. - Nursing Communication - Patient is not on Aspirin ; Standing - Nursing Communication: Patient is not on a beta swathi ; Standing - heparin injection 5,000 Units; Inject 1 mL into the skin PRE-OP ONCE. Asthma - Full Code; Standing - Place Sequential Compression Device; Standing - Insert Peripheral IV; Standing - lactated ringers (LR) infusion; Inject 25 mL/hr into the vein continuous. - Status: Inpatient DOSA/DOPA Day of Surgery/Procedure Admisssion; Standing - EKG 12 lead - Type and Screen; Standing - ceFAZolin (ANCEF) syringe 2 g; Inject 20 mL into the vein PRE-OP ONCE. - Nursing Communication - Patient is not on Aspirin ; Standing - Nursing Communication: Patient is not on a beta swathi ; Standing - heparin injection 5,000 Units; Inject 1 mL into the skin PRE-OP ONCE. Gerd (gastroesophageal reflux disease) - Full Code; Standing - Place Sequential Compression Device; Standing - Insert Peripheral IV; Standing - lactated ringers (LR) infusion; Inject 25 mL/hr into the vein continuous. - Status: Inpatient DOSA/DOPA Day of Surgery/Procedure Admisssion; Standing - EKG 12 lead - Type and Screen; Standing - ceFAZolin (ANCEF) syringe 2 g; Inject 20 mL into the vein PRE-OP ONCE. - Nursing Communication - Patient is not on Aspirin ; Standing - Nursing Communication: Patient is not on a beta swathi ; Standing - heparin injection 5,000 Units; Inject 1 mL into the skin PRE-OP ONCE. consent will be signed at next visit with Dr Culver. Take protonix, advair and flonase day of surgery as well as albuterol if needed Do not take vitamins, singulair or ibuprofen TIFFANY Fuentes documented in this encounter Plan of Treatment Not on file documented as of this encounter Visit Diagnoses Diagnosis Morbid obesity ([facility])- Primary Morbid obesity Preop examination Preoperative examination, unspecified Asthma Unspecified asthma GERD (gastroesophageal reflux disease) Esophageal reflux documented in this encounter Discontinued Medications Medication Sig Discontinue Reason Start Date End Da te azithromycin (ZITHROMAX Z-THEO) 250 mg tablet Take 250 mg by mouth daily. Therapy completed 08/30/2012 SULFAMETHOXAZOLE/TRIMET HOPRIM (BACTRIM ORAL) Take by mouth. 7 day pack - almost finished (05/03/12). Unsure of dosage Therapy completed 08/30/2012 documented as of this encounter Care Teams Ordnance Technician Relationship Specialty Start Date End Date Avery Caballero MD [address] [place] [address] PCP - General 12/20/10 documented as of this encounter
--- OUTSIDE RECORDS SUMMARY | 2024-04-08 18:10 | XMS_ITS | Encounter Summary ---
Author Organization [facility] Address [address] [place] [address] Care Team Providers Care User Experience Designer Name Role Phone Avery Caballero MD Primary Care Provider Reason for Visit * Reason Comments Obesity Post Op Sleeve - 3 W eeks Encounter Details Date Type Department Care Team (Late st Contact Info) Description 10/10/2012 9:45 EST Office Visit [facility] Bariatric Surgery - [address] [address] Bebeto Culver MD [address] [place] [phone] Morbid obesity (HCC-CMS) (Primary Dx) Social History Tobacco Use Types [...] Sign Reading Time Taken Comments Blood Pressure 132/64 10/10/2012 0956 EST Pulse 68 10/10/2012 0956 EST Temperature - - Respiratory Rate - - Oxygen Saturation - - Inhaled Oxygen Concentration - - Weight 86.2 kg (190 lb) 10/10/2012 0956 EST Height 149.7 cm (4' 10.94) 10/10/2012 0956 EST Body Mass Index 38.46 10/10/2012 0956 EST documented in this encounter Progress Notes * Charlotte Lima, RD - 10/10/2012 1037 EST Nutrition Post Op Visit: Gastric Sleeve Subjective: Patient returns to clinic for post op nutritional counseling following bariatric surgery 3 weeks ago. On blended diet without problems for the most part. Tried blended pork and it was very painful, stopped at 2 bites. Next day, had regurg after scrambled eggs Questionnaire Reviewed: Yes Intolerance Episodes: yes 1 time as above Food Intolerances: N/a Current Exercise: walking Objective: Current Weight: Wt Readings from Last 1 Encounters: 10/10/12 86.183 kg (190 lb) Current BMI: Body mass index is Body mass index is 38.46 kg/(m^2).. Total Weight Loss: Total Loss in lbs (Weight from Initial Consult - Today's Weight): 61 lbs Weight Change since Last Visit:-1.8 lb, since surgery lost 20.6 lb Supplement Usage: Type Amount MVT chew Assessment: Adequate Meal Frequency: Yes Adequate Meal Composition: Yes-protein around 60-70 gr per day with food and supplements Exercise Adequacy: Yes Nutritional Issues: doing well. Advised another 1-2 weeks on blended and slow transition to soft diet as tolerated-she agrees Plan: Continue current diet and exercise for 1-2 weeks, then slow transition to soft Education Provided: Other -diet progression * Bebeto Culver MD - 10/10/2012 1006 EST doing well 10/10/2012 Hannah Ling is here in follow-up to her laparoscopic sleeve gastrectomy. The weight trend for the patient is: Weight at initial consult: 113.853 kg (251 lb), to 87 kg (191 lb 12.8 oz) [10/03/2012]at the last post-op visit to today's Weight : 86.183 kg (190 lb). PROBLEM LIST Patient Active Problem List Diagnoses ??? Morbid obesity ??? Asthma ??? Hiatal hernia ??? Gastroesophageal reflux disease ??? GERD (gastroesophageal reflux disease) SUBJECTIVE: Emesis: Speed of eating and blenderized pork Nausea: No complaints of nausea Increased Volume Tolerance: no Abdominal Pain: No complaints of abdominal pain Lightheadedness: No complaints of lightheadedness Bowel Function: Normal Pannus: No problems related to pannus reported OBJECTIVE: General Appearance: healthy appearing Abdomen: Incision well-healed Extremities: No clubbing, cyanosis or edema Skin: No changes ASSESSMENT: Doing well and Weight Loss: good PLAN: 1. Return to clinic in 3 week(s). 2. No orders of the defined types were placed in this encounter. 3. actigal at next visit Seen and discussed with Tank Terminal Gauger at this visit. Bebeto Culver MD 10/10/2012 10:06 * Sandi Larson - 10/10/2012 0957 EST 30-Day Plus Bariatric Surgery Postop Questionnaire Anticoagulation initiated for presumed/confirmed DVT/PE? No Incisional hernia noted on exam? No Sleep Apnea requiring CPAP or BiPap? No GERD requiring daily use of PPI or H2 blockers? Yes, taking omeprazole daily Musculoskeletal Disease? Yes, arthritis in knees and upper arms If yes, is activity limited by pain? [...] discharge and suspected reason for admission) No Sandi Larson 10/10/2012 9:57 documented in this encounter Plan of Treatment Not on file documented as of this encounter Visit Diagnoses Diagnosis Morbid obesity ([facility])- Primary Morbid obesity documented in this encounter Care Teams User Experience Designer Relationship Specialty Start Date End Date Avery Caballero MD [address] [place] [address] PCP - General 12/20/10 documented as of this encounter
--- OUTSIDE RECORDS SUMMARY | 2024-04-08 18:10 | XMS_ITS | Encounter Summary ---
Author Organization [facility] Address [address] [place] [address] Care Team Providers Care Can Inspector Name Role Phone Avery Caballero MD Primary Care Provider [phone] Reason for Visit * Reason Comments Obesity #1 - band/sleeve Encounter Details Date Type Department Care Team (Late st Contact Info) Description 10/05/2011 14:30 EST Office Visit [facility] Bariatric Surgery - [address] [address] Bebeto Culver MD [address] [place] [phone] GERD (gastroesophageal reflux disease) (Primary Dx) Social History Tobacco Use Types Packs/Day Years Used Date Smoking Tobacco: Never Assessed Sex and Gender Information Value Date Recorded Sex Assigned at Not on file Gender Identity Not on file Sexual Orientation Not on file documented as of this encounter Last Filed Vital Signs Vital Sign Reading Time Taken Comments Blood Pressure 120/70 10/05/2011 1504 EST Pulse 80 10/05/2011 1504 EST Temperature - - Respiratory Rate - - Oxygen Saturation - - Inhaled Oxygen Concentration - - Weight 113.9 kg (251 lb) 10/05/2011 1504 EST Height 149.7 cm (4' 10.94) 10/05/2011 1504 EST Body Mass Index 50.8 10/05/2011 1504 EST documented in this encounter Progress Notes * Bebeto Culver MD - 10/05/2011 1606 EST 10/05/2011 Chief Complaint: Hannah Ling is a 46 y.o. female seen today in consultation at the request of for consideration of surgical treatment for her morbid obesity. HPI: Hannah Ling has had weight problems since childhood. She has tried multiple weight loss programswith the following results: no long-term success. Their maximum weight loss has been 60 pounds, andtheir highest weight has been 270. The patient's primary motivation for weight loss is health, mobility and longevity. Associated co-morbidities: Sleep apnea, Osteoarthritis, Gastro-Esophogeal Reflux, Asthma and stressincontinence Gallbladder: US not done yet Prior abdominal surgeries: laparotomy for abdominal hysterectomy No past surgical history on file. Gastric problems/issues: GERD There is no problem list on file for this patient. Allergies: Latex, natural rubber Social History: History Substance Use Topics ??? Smoking status: Not on file ??? Smokeless tobacco: Not on file ??? Alcohol Use: Not on file Review of Systems: A ten point review of systems was performed. Pertinent positives are listed below, all others are negative. Physical Exam: BP 120/70 Pulse 80 Ht 149.7 cm (58.94) Wt 113.853 kg (251 lb) BMI 50.80 kg/m2 Body mass index is 50.80 kg/(m^2). General Appearance: healthy appearing and morbidly obese HEENT: PERRLA, EOMI and Sclera clear, anicteric Cardiovascular: PMI normal. No lifts, heaves, or thrills. RRR. Heart sounds normal. No murmurs, clicks or gallops. Abdominal aorta pulsation normal. Carotid, femoral and pedal pulses 2+ bilaterally. No arterial bruits. No peripheral edema. Abdomen: soft, non-tender; bowel sounds normal; no masses, no organomegaly Pannus: moderate Skin: Skin color, texture, turgor normal. No rashes or lesions. Extremities: normal strength, tone, and muscle mass Assessment: I spent 45 minutes with this patient. Over 50% of this appointment was spent in face to face counseling, discussing this patient's medical profile as it relates to the benefits and risks of gastric bypass/lapband surgery and reviewed an on- line CODY tutorial the patient watched covering the way weight loss surgery is done, how it causes weight loss, potential risks and complications, impact on eating and critical nature of exercise and follow up to a good outcome. The patient acknowledges a pre-op BMI goal of 5%. I explained in detail the procedures that we are performing. All of these procedures can be performed laparoscopically or open. The patient was made aware of the followin. As we perform these procedures laparoscopically, there is a chance to convert to open if any technical challenges or complications do occur. 2. Bariatric surgery is not cosmetic surgery and should not be thought of in any way as cosmetic surgery. It does not involve the removal of adipose tissue by surgery or removal by suctioning. 3. Long-life commitment is a very important part of his/her decision along with lifestyle changes including diet, exercise, and behavior changes. 4. Problems after surgery may require more operations to correct them. 5. Patient will need to be on a liquid/protein diet for at least 2 weeks prior to surgery. 6. If appropriate: she was advised against during the first year after the procedure. The risks, benefits and alternatives of all of the procedures were explained in detail including, but not limited to , anesthesia and medication adverse effect/DVT, pulmonary embolism, trocar site/incisional hernia, wound infection, bleeding, failure to lose weight or gain weight and change inbody image. With regard to the band, the risks and benefits were explained. The risks associated with the band include, but are not limited to: gastric/esophageal perforation, access port leakage, infection or twisting that may require an additional operation, failure to lose weight or gaining weight, nausea, v omiting, outlet obstruction, pouch and esophageal dilatation, gastroesophageal reflux disease symptoms, band migration/slippage or erosion. For the gastric bypass the risks include but not limited to the following early complications: anastomotic leak/peritonitis, acute distal gastric dilatation, Lex limb obstruction, severe & minorwound infection/seroma, and nausea/vomiting. Late complications of gastric bypass can include but are not limited to: stomal stenosis, marginal ulcer, SBO/internal,incisional hernia, staple line disruption (GGF) and metabolic complications with calcium, thiamine, vitamin B12, folate, iron and anemia. Regarding the sleeve the risks include but are not limited to: internal visceral/ organ injury, bleeding, infection, leak, stenosis and possibility of regaining weight. The patient understands the surgical procedures and the different surgical options that are available. She understands the lifestyle changes that would be required after surgery and has agreed to participate in a pre-operative and postoperative weight management program. She understands the risks involved as well, including a leak, a blood clot developing in a leg and migrating to the lungs as a pulmonary embolus, conversion to open surgery, and . Hannah has attended the preoperative bariatric education class and has had additional opportunity to address specific concerns. I think she is a good candidate for this surgery, and her expectations from the surgery are reasonable. Plan: She was asked to Shedule a follow-up appt with our production expediter and our nurse practitioner, Gilma. We will obtain the results of the following: UGI and EGD. Hannah Ling is an appropriate candidate for Gastric Sleeve surgery pending test results.. For the next visit she was advised to come with her family. Seen and discussed with Office Machine Embossograph Operator at this visit. Bebeto Culver MD 10/05/2011 16:06 * Charlotte Lima, RD - 10/05/2011 1518 EST Bariatric Clinic - Medical Nutritional Evaluation - Initial 10/05/2011 Evaluation for LapBand./ sleeve Subjective: Patient is 46 y.o. female here for nutritional assessment for the above bariatric surgery. Nutrition/diet history: Family/other support system: spouse Menu planning/shopping: spouse Who does the cooking: spouse Eating out frequency: 1 time dinners, eats lunch at work-hot veggies Prior weight loss attempts: Weight Watchers, [employer] diet and nutri system, [employer] Patient's diet has not changed substantially since 3 day food record was kept. Allergies Allergen Reactions ??? Latex, Natural Rubber Hives and Swelling Food Intolerances: none Current Exercise: activity of daily living only Reasons for limited exercise: lack of time Objective: BP 120/70 Pulse 80 Ht 149.7 cm (58.94) Wt 113.853 kg (251 lb) BMI 50.80 kg/m2 Body mass index is 50.80 kg/(m^2). Excess BW: 135 lb 5% Wt Loss or Goal Wt: 12 lb Estimated Body Wt after Surgery: 184 lb post band Patient was counseled on keeping a food diary and pre-op weight loss expectations and given Drs. Hoang Guide Patient has the following barriers to learning: none Assessment: Patient seems to be an appropriate candidate for bariatric surgery based on multiple failed weight loss attempts and BMI and comorbidities. Patient has already made significant positive changes in diet n/a. Patient needs to make the following changes prior to next visit keep food records,, eat more slowly, and start taking a daily vitamin,. Patient needs to make the following changes in exercise prior to next visit: increase time to 150 min per week. Patient appears to comprehend requirements. Plan: Patient will be evaluated for changes in diet as above and maintain a food diary including foods consumed and calories calculated. Patient is expected to bring at least 1 week of food diaries to second visit for review. Patient will lose 1-2 pounds a week, or at least 12 lb by day of surgery Charlotte Lima RD 10/05/2011 15:18 documented in this encounter Plan of Treatment Scheduled Orders Name Type Priority Associated Diagnoses Orde r Schedule UPPER ENDOSCOPY GI Routine GERD (gastroesophageal reflux disease) Ordered: 10/05/2011 documented as of this encounter Procedures Procedure Name Priority Date/Time Associated Diagnosis Comments FL ESOPHAGRAM (BARIUM SWALLOW) Routine 10/12/2011 9:08 EST GERD (gastroesophageal reflux disease) documented in this encounter Results * FL ESOPHAGRAM (10/12/2011 9:08 EST) Anatomical Region Laterality Modality Other 10/12/2011 9:08 EST 10/12/2011 13:55 EST Narrative 10/12/2011 13:55 EST FL ESOPHAGRAM ??Oct 12, 2011 09:08:00 AM Clinical history/Comments: Gastroesophageal reflux disease. Comparison: None. Technique: Single and double contrast evaluation of the thoracic esophagus was performed. Rapid sequence imaging of the cervical esophagus and pharynx was also performed. Findings: Fluoroscopic images show subtle mucosal irregularity throughout the distal esophagus, likely reflecting a combination of areas of inflammation and scarring. There is a small sliding hiatal hernia. Gastroesophageal reflux was elicited during the exam. Rapid sequence imaging of the cervical esophagus and pharynx shows normal swallowing function. There is no laryngeal penetration or aspiration. Impression: 1. Subtle areas of inflammation and scarring throughout the distal thoracic esophagus, most likely secondary to peptic esophagitis. 2. Small sliding hiatal hernia. 3. Gastroesophageal reflux. I have personally reviewed the images and the above interpretation and agree with the findings. Procedure Note Tyrese Berry MD - 10/12/2011 FL ESOPHAGRAM Oct 12, 2011 09:08:00 AM Clinical history/Comments: Gastroesophageal reflux disease. Comparison: None. Technique: Single and double contrast evaluation of the thoracic esophagus was performed. Rapid sequence imaging of the cervical esophagus and pharynx was also performed. Findings: Fluoroscopic images show subtle mucosal irregularity throughout the distal esophagus, likely reflecting a combination of areas of inflammation and scarring. There is a small sliding hiatal hernia. Gastroesophageal reflux was elicited during the exam. Rapid sequence imaging of the cervical esophagus and pharynx shows normal swallowing function. There is no laryngeal penetration or aspiration. Impression: 1. Subtle areas of inflammation and scarring throughout the distal thoracic esophagus, most likely secondary to peptic esophagitis. 2. Small sliding hiatal hernia. 3. Gastroesophageal reflux. I have personally reviewed the images and the above interpretation and agree with the findings. Bebeto Culver MD IMG FLUOROSC OPY ORDERABLES documented in this encounter Visit Diagnoses Diagnosis GERD (gastroesophageal reflux disease)- Primary Esophageal reflux documented in this encounter Historical Medications * This list may reflect changes made after this encounter. Medication Sig Dispensed Refills Start Date End Date ALBUTEROL INHL Inhale 1 Puff as directed as needed. montelukast (SINGULAIR) 10 mg tablet Take 10 mg by mouth at bedtime. fluticasone (FLONASE) 50 mcg/actuation nasal spray 1 [place] by Nasal route 2 times daily. fluticasone-salmeterol (ADVAIR DISKUS) 250-50 mcg/dose diskus inhaler Inhale 1 Puff as directed 2 times daily. added in this encounter Care Teams Can Inspector Relationship Specialty Start Date End Date Avery Caballero MD [address] [place] [address] PCP - General 12/20/10 documented as of this encounter
--- OUTSIDE RECORDS SUMMARY | 2024-04-08 18:10 | XMS_ITS | Encounter Summary ---
Author Organization [facility] Address [address] [place] [address] Care Team Providers Care Strategic Marketing Leader Name Role Phone Avery Caballero MD Primary Care Provider [phone] Encounter Details Date Type Department Care Team (Late st Contact Info) Description 09/25/2012 Documentation Visit [facility] Bariatric Surgery [address] [place] [address] Leon Georges, LOYDC [address] [facility] [address] [place] [phone] Social History Tobacco Use Types Packs/Day Years [...] Concentration - - Weight - - Height 149.7 cm (4' 10.94) 09/25/2012 0900 EST Body Mass Index - - documented in this encounter Progress Notes * Maksim Cantor - 04/02/2015 1616 EDT See flowsheet documented in this encounter Plan of Treatment Not on file documented as of this encounter Visit Diagnoses Not on filedocumented in this encounter Care Teams Strategic Marketing Leader Relationship Specialty Start Date End Date Avery Caballero MD [address] [place] [address] PCP - General 12/20/10 documented as of this encounter
--- OUTSIDE RECORDS SUMMARY | 2024-04-08 18:10 | XMS_ITS | Encounter Summary ---
Author Organization [facility] Address [address] [place] [address] Care Team Providers Care Bundle Sorter Name Role Phone Avery Caballero MD Primary Care Provider [phone] Reason for Visit * Reason Onset Date Comments Advice Only 09/23/2012 Encounter Details Date Type Department Care Team (Late st Contact Info) Description 09/23/2012 Telephone [facility] Bariatric Surgery - [address] [phone] Charlotte Lima RD Advice Only Social History Tobacco Use Types Packs/Day Years Used Date Smoking Tobacco: Never Alcohol Use Standard Drinks/Week Comments No 0 (1 standard drink = 0.6 oz pur e alcohol) Sex and Gender Information Value Date Recorded Sex Assigned at Not on file Gender Identity Not on file Sexual Orientation Not on file documented as of this encounter Miscellaneous Notes * Telephone Encounter - Charlotte Lima RD - 09/23/2012 1018 EST BARIATRIC SURGERY POST-OP CALL NOTE Date of Surgery: 09/20/12 Date of Discharge: 09/22/12 Surgeon: Abiola Type of Surgery: Gastric Sleeve Patient Complains of: Abdominal spasms -pain and cramping when she drinks anything. Surgeon told her it might be from the hernia repair he did at the time of surgery. Patient Tolerating: Adequate Fluids-tolerating some clear liquids. Strongly encouraged her to remain hydrated with 1-2 qt of clear liquids daily. If unable to do that from the spasms or other reasons, advised her to call us and she agrees Plan: May try diluted protein shake on 24 AM Return to Clinic:09/26/[address] 09/23/2012 10:19 documented in this encounter Plan of Treatment Not on file documented as of this encounter Visit Diagnoses Not on filedocumented in this encounter Care Teams Bundle Sorter Relationship Specialty Start Date End Date Avery Caballero MD [address] [place] [address] PCP - General 12/20/10 documented as of this encounter
--- OUTSIDE RECORDS SUMMARY | 2024-04-08 18:10 | XMS_ITS | Encounter Summary ---
Author Organization Health system Address [address] [place] [address] Care Team Providers Care Director Corporate Security Name Role Phone Avery Caballero MD Primary Care Provider Reason for Visit * Reason Comments Obesity 1st post-op sleeve Encounter Details Date Type Department Care Team (Late st Contact Info) Description 09/26/2012 11:15 EST Office Visit [facility] Bariatric Surgery [address] [phone] Bebeto Culver MD [address] [place] [phone] Morbid obesity (HCC-CMS) (Primary Dx) Social [...] Sign Reading Time Taken Comments Blood Pressure 120/74 09/26/2012 1110 EST Pulse 80 09/26/2012 1110 EST Temperature - - Respiratory Rate - - Oxygen Saturation - - Inhaled Oxygen Concentration - - Weight 87 kg (191 lb 12.8 oz) 09/26/2012 1110 ES T Height 149.7 cm (4' 10.94) 09/26/2012 1110 EST Body Mass Index 38.82 09/26/2012 1110 EST documented in this encounter Progress Notes * Charlotte Lima, RD - 09/26/2012 1144 EST Nutrition Post Op Visit: Gastric Sleeve Subjective: Patient returns to clinic for post op nutritional counseling following bariatric surgery 1 week ago. Barely getting 1 qt clear fluid down. Some nausea and bad taste in mouth-admitted to surgeon she is not taking her PPI. Had about 3 oz of her protein shake this AM Questionnaire Reviewed: No Intolerance Episodes: no Food Intolerances: n/a Current Exercise: Limited walking around the house Objective: Current Weight: Wt Readings from Last 1 Encounters: 09/26/12 87 kg (191 lb 12.8 oz) Current BMI: Body mass index is Body mass index is 38.82 kg/(m^2).. Total Weight Loss: Total Loss in lbs (Weight from Initial Consult - Today's Weight): 59.2 lbs Weight Change since Last Visit:since surgery lost 18.8 lb Supplement Usage: Type Amount none Assessment: Adequate Meal Frequency: Yes Adequate Meal Composition: No: inadequate fluids Exercise Adequacy: Yes Nutritional Issues: inadequate fluid intake, just starting protein containing fluids. Advised her to add a bit of fruit juice or milk daily as a way to get natural carbs-she may be in ketosis which will give her an off taste. Surgeon and I both stressed need to take PPI, she could be in jeopardy ofnausea and dehydration if she doesn't. She verbalizes understanding. Advised her to increase her free fluids to 1-2 qt per day, slowly increase her protein shake, to 2 per day, then add smooth yogurt, creamed soup,etc and other full liquid foods. We will review transition to blended diet next week Plan: Change intake-increase free fluids, add carb containing fluid and increase protein as able to 50 grper day Increase exercise-continue indoor walking Education Provided: Other -as above * Bebeto Culver MD - 09/26/2012 1126 EST not taking albuterol or singulair or prilosec tastes bad -i told her she needs to take those meds despite the taste 09/26/2012 Hannah Ling is here in follow-up to her laparoscopic sleeve gastrectomy. The weight trend for the patient is: Weight at initial consult: 113.853 kg (251 lb), to 95.528 kg (210 lb 9.6 oz) [09/12/2012] at the last post-op visit to today's Weight : 87 kg (191 lb 12.8 oz). PROBLEM LIST Patient Active Problem List Diagnoses ??? Morbid obesity ??? Asthma ??? Hiatal hernia ??? Gastroesophageal reflux disease ??? GERD (gastroesophageal reflux disease) SUBJECTIVE: Emesis: No complaints of emesis Nausea: No complaints of nausea Increased Volume Tolerance: no Abdominal Pain: No complaints of abdominal pain Lightheadedness: No complaints of lightheadedness Bowel Function: Normal Pannus: No problems related to pannus reported OBJECTIVE: General Appearance: morbidly obese Abdomen: Incision well-healed Extremities: Normal Skin: No changes Lungs clear no wheezes ASSESSMENT: Doing well and Weight Loss: good PLAN: 1. Return to clinic in 1 week(s). 2. No orders of the defined types were placed in this encounter. 3. Take prescribed meds See pmd this week Seen and discussed with Python Architect at this visit. Bebeto Culver MD 09/26/2012 11:26 * Sandi Larson - 09/26/2012 1113 EST 30-Day Bariatric Surgery Postop Questionnaire Wound Occurrences Y/N Date Comments Superficial Incisional SSI N Deep Incisional SSI N Organ/Space SSI N Wound Disruption N Respiratory Occurrences Pneumonia N Lungs are feeling tight Urinary Tract Occurrences Urinary Tract Infection N TOBACCO STRIPPER Occurrences Peripheral Nerve Injury N Other Occurrences DVT requiring therapy N Other Was an operative drain still present at 30 days? No Any visit to an outside hospital including ER visits and admissions (include date of admission and discharge and reason)? No Sandi Larson 09/26/2012 11:13 30-Day Plus Bariatric Surgery Postop Questionnaire Anticoagulation initiated for presumed/confirmed DVT/PE? No Incisional hernia noted on exam? No Sleep Apnea requiring CPAP or BiPap? No GERD requiring daily use of PPI or H2 blockers? Yes, omeprazole 40mg daily Musculoskeletal Disease? No If yes, is activity limited by pain? [...] and discharge and suspected reason for admission) Serina Larson 09/26/2012 11:13 documented in this encounter Plan of Treatment Not on file documented as of this encounter Visit Diagnoses Diagnosis Morbid obesity ([facility])- Primary Morbid obesity documented in this encounter Discontinued Medications Medication Sig Discontinue Reason Start Date End Da te oxycodone (ROXICODONE) 5 mg/5 mL solution Take 5-10 mL by mouth every 3 hours as needed for Pain. Therapy completed 09/22/2012 09/26/2012 ondansetron (ZOFRAN ODT) 4 mg disintegrating tablet Take 1 Tab by mouth every 6 hours as needed for Nausea. Therapy completed 09/22/2012 09/26/2012 naproxen (NAPROSYN) 500 mg tablet Take 500 mg by mouth 2 times daily. Therapy completed 09/26/2012 documented as of this encounter Care Teams Director Corporate Security Relationship Specialty Start Date End Date Avery Caballero MD [address] [place] [address] PCP - General 12/20/10 documented as of this encounter
--- OUTSIDE RECORDS SUMMARY | 2024-04-08 18:10 | XMS_ITS | Encounter Summary ---
Author Organization [facility] Address [address] [place] [address] Care Team Providers Care Architecture Drafter Name Role Phone Avery Caballero MD Primary Care Provider [phone] Reason for Visit * Reason Onset Date Comments Pre-visit Orders 10/31/2012 Needs labs Encounter Details Date Type Department Care Team (Late st Contact Info) Description 10/31/2012 Orders Only [facility] Bariatric Surgery [address] [place], [place] [address] Desi Rios RN Other and unspecified postsurgical [...] Progress Notes * Desi Rios RN - 10/31/2012 1302 EST Patient is s/p gastric sleeve and needs post-op labs drawn prior to apt. Labs ordered per Leon Georges PA-C. Lab slip given to patient. documented in this encounter Plan of Treatment Not on file documented as of this encounter Visit Diagnoses Diagnosis Other and unspecified postsurgical nonabsorption- Primary Morbid obesity (HCC-CMS) Morbid obesity S/P partial gastrectomy Other postprocedural status documented in this encounter Care Teams Architecture Drafter Relationship Specialty Start Date End Date Avery Caballero MD [address] [place] [address] PCP - General 12/20/10 documented as of this encounter
--- OUTSIDE RECORDS SUMMARY | 2024-04-08 18:10 | XMS_ITS | Encounter Summary ---
Author Organization [facility] Address [address] [place] [address] Care Team Providers Care Commissary Worker Name Role Phone Avery Caballero MD Primary Care Provider [phone] Reason for Visit * Reason Onset Date Comments Results 04/03/2014 Encounter Details Date Type Department Care Team (Late st Contact Info) Description 04/03/2014 Orders Only [facility] Bariatric Surgery - [place] [address] [place] [address] Desi Rios RN Morbid obesity ([facility]); S/P partial gastrectomy; Post-resection malabsorption Social History Tobacco Use Types Packs/Day Years [...] Procedure Name Priority Date/Time Associated Diagnosis Comments THIAMIN (VITAMIN B1), WB Routine 03/24/2014 Morbid obesity ([facility]) S/P partial gastrectomy Post-resection malabsorption VITAMIN D (25,[place]) Routine 03/24/2014 Morbid obesity ([facility]) S/P partial gastrectomy Post-resection malabsorption PTH INTACT Routine 03/24/2014 Morbid obesity ([facility]) S/P partial gastrectomy Post-resection malabsorption COMPLETE BLOOD COUNT Routine 03/24/2014 Morbid obesity ([facility]) S/P partial gastrectomy Post-resection malabsorption IRON Routine 03/24/2014 Morbid obesity (HCC-CMS) S/P partial gastrectomy Post-resection malabsorption FERRITIN Routine 03/24/2014 Morbid obesity (HCC-CMS) S/P partial gastrectomy Post-resection malabsorption VITAMIN B12 Routine 03/24/2014 Morbid obesity (HCC-CMS) S/P partial gastrectomy Post-resection malabsorption CREATININE Routine 03/24/2014 Morbid obesity (HCC-CMS) S/P partial gastrectomy Post-resection malabsorption CALCIUM Routine 03/24/2014 Morbid obesity (HCC-CMS) S/P partial gastrectomy Post-resection malabsorption documented in this encounter Results * HEMAGRAM (03/24/2014) HCT, External 40.1 [facility] MCH, External 29.7 [facility] MCV, External 87.6 [facility] MCHC, External 33.9 [facility] Hemoglobin, External 13.6 [facility] WBC, External 4.37 [facility] RBC, External 4.58 [facility] PLT, External 141 [facility] RDW-CV, External 12.4 [facility] Blood specimen (specimen) 03/24/2014 Loen ALLEN-Jonathan HEMATOLOGY & PF4 ORDERABLES Performing Organization Address City/[facility]/ZIP Co de Phone Number [facility] * CREATININE (03/24/2014) Creatinine, External 0.7 [facility] GFR, Calculated, External [facility] Blood specimen (specimen) 03/24/2014 Leon ALLEN-C CHEMISTRY & BLOOD GAS ORDERABLES [facility] * VITAMIN B12 (03/24/2014) Vitamin B-12, External 545 [facility] Blood specimen (specimen) 03/24/2014 Leon Azucena Chutter-Cressy PA-C CHEMISTRY & BLOOD GAS ORDERABLES [facility] * CALCIUM (03/24/2014) Calcium, External 8.6 [facility] Calculated Calcium, External [facility] Blood specimen (specimen) 03/24/2014 Leon Burrelltter-Cressy PA-C CHEMISTRY & BLOOD GAS ORDERABLES Performing Organization Address City/[facility]/ZIP Co de Phone Number [facility] * FERRITIN (03/24/2014) Ferritin, External 31 [facility] Blood specimen (specimen) 03/24/2014 Leon Azucena Space Apetter-Cressy PA-C CHEMISTRY & BLOOD GAS ORDERABLES [facility] * THIAMIN (VITAMIN B1), WB (03/24/2014) Thiamine, External 126 [facility] Comment, External [facility] Blood specimen (specimen) 03/24/2014 Leon Azucena Space Apetter-Cressy PA-C CHEMISTRY & BLOOD GAS ORDERABLES [facility] * VITAMIN D (25,[place]) (03/24/2014) 25OH Vitamin D Tot, External 35.1 [facility] Blood specimen (specimen) 03/24/2014 Leon Zeng Saraer-Cressy PA-C CHEMISTRY & BLOOD GAS ORDERABLES [facility] * IRON (03/24/2014) Iron, External 110 [facility] Blood specimen (specimen) 03/24/2014 Leon Zeng Indratter-Cressy PA-C CHEMISTRY & BLOOD GAS ORDERABLES Performing Organization Address City/[facility]/ZIP Co de Phone Number [facility] * PTH INTACT (03/24/2014) PTH, External 48 [facility] Blood specimen (specimen) 03/24/2014 Leon Zeng Saraer-Cressy PA-C CHEMISTRY & BLOOD GAS ORDERABLES Performing Organization Address City/[facility]/ZIP Co de Phone Number [facility] documented in this encounter Visit Diagnoses Diagnosis Morbid obesity ([facility]) Morbid obesity S/P partial gastrectomy Other postprocedural status Post-resection malabsorption Other and unspecified postsurgical nonabsorption documented in this encounter Care Teams Commissary Worker Relationship Specialty Start Date End Date Avery Caballero MD [address] [place] [address] PCP - General 12/20/10 documented as of this encounter
--- OUTSIDE RECORDS SUMMARY | 2024-04-08 18:10 | XMS_ITS | Encounter Summary ---
Author Organization [facility] Address [address] [place] [address] Care Team Providers Care Rug Cleaner Hand Name Role Phone Avery Caballero MD Primary Care Provider [phone] Reason for Visit * Reason Onset Date Comments Results 05/30/2013 Encounter Details Date Type Department Care Team (Late st Contact Info) Description 05/30/2013 Orders Only [facility] Bariatric Surgery - [place] [address] [place] [address] Desi Rios RN Morbid obesity ([facility]); S/P partial gastrectomy; Post-resection malabsorption Social History [...] Diagnosis Comments THIAMIN (VITAMIN B1), WB Routine 05/22/2013 Morbid obesity ([facility]) S/P partial gastrectomy Post-resection malabsorption VITAMIN D (25,[place]) Routine 05/22/2013 Morbid obesity ([facility]) S/P partial gastrectomy Post-resection malabsorption PTH INTACT Routine 05/22/2013 Morbid obesity ([facility]) S/P partial gastrectomy Post-resection malabsorption COMPLETE BLOOD COUNT Routine 05/22/2013 Morbid obesity ([facility]) S/P partial gastrectomy Post-resection malabsorption IRON Routine 05/22/2013 Morbid obesity (HCC-CMS) S/P partial gastrectomy Post-resection malabsorption FERRITIN Routine 05/22/2013 Morbid obesity (HCC-CMS) S/P partial gastrectomy Post-resection malabsorption VITAMIN B12 Routine 05/22/2013 Morbid obesity (HCC-CMS) S/P partial gastrectomy Post-resection malabsorption CREATININE Routine 05/22/2013 Morbid obesity (HCC-CMS) S/P partial gastrectomy Post-resection malabsorption CALCIUM Routine 05/22/2013 Morbid obesity ([facility]) S/P partial gastrectomy Post-resection malabsorption documented in this encounter Results * CREATININE (05/22/2013) Creatinine, External 0.7 [facility] GFR, Calculated, External >60 [facility] Blood specimen (specimen) 05/22/2013 Leon Georges PA-C CHEMISTRY & BLOOD GAS ORDERABLES [facility] * HEMAGRAM (05/22/2013) HCT, External 40.4 [facility] MCH, External 29.5 [facility] MCV, External 88.8 [facility] MCHC, External 33.2 [facility] Hemoglobin, External 13.4 [facility] WBC, External 5.37 [facility] RBC, External 4.55 [facility] PLT, External 149 [facility] RDW-CV, External 12.5 [facility] Blood specimen (specimen) 05/22/2013 Leon ALLEN-Jonathan HEMATOLOGY & PF4 ORDERABLES [facility] * CALCIUM (05/22/2013) Calcium, External 9.0 [facility] Calculated Calcium, External [facility] Blood specimen (specimen) 05/22/2013 Leon Burrelltter-Cressy PA-C CHEMISTRY & BLOOD GAS ORDERABLES [facility] * VITAMIN B12 (05/22/2013) Vitamin B-12, External 640 [facility] Blood specimen (specimen) 05/22/2013 Leon BurrellDigital Legendser-Cressy PA-C CHEMISTRY & BLOOD GAS ORDERABLES Performing Organization Address [facility]/ZIP Co de Phone Number [facility] * THIAMIN (VITAMIN B1), WB (05/22/2013) Thiamine, External 117 [facility] Comment, External [facility] Blood specimen (specimen) 05/22/2013 Leon BurrellDigital Legendser-Cressy PA-C CHEMISTRY & BLOOD GAS ORDERABLES Performing Organization Address City/[facility]/ZIP Co de Phone Number [facility] * VITAMIN D (25,OH) (05/22/2013) 25OH Vitamin D Tot, External 33.2 [facility] Blood specimen (specimen) 05/22/2013 Leon Zeng Biocepttter-Cressy PA-C CHEMISTRY & BLOOD GAS ORDERABLES [facility] * PTH INTACT (05/22/2013) PTH, External 50 [facility] Blood specimen (specimen) 05/22/2013 Leon Zeng Chutter-Cressy PA-C CHEMISTRY & BLOOD GAS ORDERABLES [facility] * FERRITIN (05/22/2013) Ferritin, External 34 [facility] Blood specimen (specimen) 05/22/2013 Leon Zeng Chutter-Cressy PA-C CHEMISTRY & BLOOD GAS ORDERABLES [facility] * IRON (05/22/2013) Iron, External 74 [facility] Blood specimen (specimen) 05/22/2013 Leon Zeng Indratter-Cressy PA-C CHEMISTRY & BLOOD GAS ORDERABLES Performing Organization Address City/[facility]/ZIP Co de Phone Number [facility] documented in this encounter Visit Diagnoses Diagnosis Morbid obesity ([facility]) Morbid obesity S/P partial gastrectomy Other postprocedural status Post-resection malabsorption Other and unspecified postsurgical nonabsorption documented in this encounter Care Teams Rug Cleaner Hand Relationship Specialty Start Date End Date Avery Caballero MD [address] [place] [address] PCP - General 12/20/10 documented as of this encounter
--- OUTSIDE RECORDS SUMMARY | 2024-04-08 18:10 | XMS_ITS | Encounter Summary ---
Author Organization [facility] Address [address] [place] [address] Care Team Providers Care Granite Sandblaster Apprentice Name Role Phone Avery Caballero MD Primary Care Provider [phone] Encounter Details Date Type Department Care Team (Late st Contact Info) Description 10/06/2011 Documentation Visit [facility] Bariatric Surgery - [place] [address] [place] [address] Social History Tobacco Use Types Packs/Day Years Used Date Smoking Tobacco: Never Assessed Sex and Gender Information Value Date Recorded Sex Assigned at Not on file Gender Identity Not on file Sexual Orientation Not on file documented as of this encounter Plan of Treatment Not on file documented as of this encounter Visit Diagnoses Not on filedocumented in this encounter Care Teams Granite Sandblaster Apprentice Relationship Specialty Start Date End Date Avery Caballero MD [address] [place] [address] PCP - General 12/20/10 documented as of this encounter
--- OUTSIDE RECORDS SUMMARY | 2024-04-08 18:10 | XMS_ITS | Encounter Summary ---
Author Organization [facility] Address [address] [place] [address] Care Team Providers Care Home Care Nurse Name Role Phone Avery Caballero MD Primary Care Provider Encounter Details Date Type Department Care Team (Late st Contact Info) Description 10/17/2011 Results Only [facility] Bariatric Surgery - [address] [address] Louis Monteiro MD [address] [place] [phone] Social History Tobacco Use Types Packs/Day Years [...] Priority Date/Time Associated Diagnosis Comments SURGICAL PATHOLOGY Routine 10/17/2011 0:00 EST documented in this encounter Results * SURGICAL PATHOLOGY (10/17/2011 0:00 EST) Pathology Report: SURGICAL PATHOLOGY REPORT Reports generated via electronic interface contain original data; however they are lacking the format of the original report. Caution should be taken when reading/interpreti ng unformatted reports. Name: ? MARVIN HANNAH Domingo ? Accession #: ? [id number] ? : ? 1965 (Age: 46) ??F ? Collect Date: ? 10/17/2011 ? Location: ? [facility] ? Receive Date: ? 10/17/2011 ? Provider: LOUIS MONTEIRO MD Copy to: AVERY CABALLERO MD ? Final Pathologic Diagnosis: A. ?Gastroesophageal junction, biopsies: 1. ?Squamocolumnar mucosa with features consistent with reflux esophagitis. 2. ? No intestinal metaplasia or dysplasia identified. B. ?Stomach, antrum, biopsy: 1. ?Antral-type mucosa with no specific pathologic features. 2. ? No Helicobacter pylori-like microorganisms identified on H&E-stained sections. ?? C. ?Duodenum, bulb, biopsy: 1. ?Duodenal mucosa with focal foveolar metaplasia. ??See comment. Comment: ? Test Preparation Tutor sections of this case have been reviewed at the intradepartmental consultation conference. ??(Dr. Zarate)/therese Document reviewed and electronically signed by: ADDIE ZARATE MD Report ??Date: 10/18/2011 19:56 By the signature above, the attending physician certifies that he/she has personally conducted a gross and/or microscopic examination of the described specimens and rendered or confirmed the above diagnosis. Specimen(s) Received: A. ?GE jxn B. ? Antrum C. ? Duodenum Clinical History: ? GERD; A. R/O Lockhart's; B, C. R/O H pylori Gross Description: ? Received in formalin labelled Brink, Hannah and GE junction are two schilling-pink irregular soft tissue fragments averaging 0.5 x 0.2 x 0.2 cm. ??The specimen is entirely submitted as (A). Received in formalin labelled Brink, Hannah and antrum is a schilling-pink 0.4 x 0.3 x 0.2 cm soft tissue fragment. ??The specimen is entirely submitted as (B). Received in formalin labelled Brink, Hannah and duodenal bulb is a 0.3 x 0.3 x 0.3 cm schilling-pink soft tissue fragment. ??The specimen is entirely submitted as (C). ??(Maria Del Rosario Triana)/myron ?? End of Report [facility] 10/17/2011 10/17/2011 11: 07 EST Louis Monteiro MD PATHOLOGY OR DERABLES Performing Organization Address City/State/[facility] Co de Phone Number [facility] [address] [place] [address] documented in this encounter Visit Diagnoses Not on filedocumented in this encounter Care Teams Home Care Nurse Relationship Specialty Start Date End Date Avery Caballero MD [address] [place] [address] PCP - General 12/20/10 documented as of this encounter
--- OUTSIDE RECORDS SUMMARY | 2024-04-08 18:10 | XMS_ITS | Encounter Summary ---
Author Organization [facility] Address [address] [place] [address] Care Team Providers Care Cuff Matcher Name Role Phone Avery Caballero MD Primary Care Provider [phone] Reason for Visit * Reason Comments Obesity Class Encounter Details Date Type Department Care Team (Late st Contact Info) Description 12/18/2011 10:30 EDT Office Visit [facility] Bariatric Surgery [address] [address] Andreea Rios, PhD [address] [place] [phone] Unspecified adjustment reaction (Primary Dx) Social History Tobacco Use Types [...] - Inhaled Oxygen Concentration - - Weight 101.7 kg (224 lb 3.2 oz) 12/18/2011 1036 EDT Height 149.7 cm (4' 10.94) 12/18/2011 1036 EDT Body Mass Index 45.38 12/18/2011 1036 EDT documented in this encounter Progress Notes * Andreea Rios, PhD - 12/18/2011 1347 EDT Behavioral Skills Group Progress Note Name: Hannah Ling : 1965 Procedure: 1.5 hour Psychoeducational Group S: The focus of this session was on introducing the behavioral skills necessary for weight loss andweight loss maintenance after surgery. Educational information was provided on topics including: energy balance, ???mindless margin,?? portion control, overcoming emotional eating, and increasing physical activity. Patients were encouraged to reflect on how they can reengineer their lifestyles, incorporating these strategies for long-term success with weight loss maintenance. This group also focused on the importance of setting realistic and achievable goals. O: Vitals: Height 149.7 cm (58.94), weight 101.696 kg (224 lb 3.2 oz). A: Level of Participation: Highly engaged Diagnosis: 309.9 P: Follow-up with behavioral support at patient???s or team???s request. Andreea Rios, PHD Licensed Psychologist - Doctorate 12/18/2011 13:47 documented in this encounter Plan of Treatment Not on file documented as of this encounter Visit Diagnoses Diagnosis Unspecified adjustment reaction- Primary documented in this encounter Care Teams Cuff Matcher Relationship Specialty Start Date End Date Avery Caballero MD [address] [place] [address] PCP - General 12/20/10 documented as of this encounter
--- OUTSIDE RECORDS SUMMARY | 2024-04-08 18:10 | XMS_ITS | Encounter Summary ---
Author Organization [facility] Address [address] [place] [address] Care Team Providers Care Water Rights Specialist Name Role Phone Avery Caballero MD Primary Care Provider [phone] Reason for Visit * Reason Comments Obesity Pre op Encounter Details Date Type Department Care Team (Late st Contact Info) Description 05/28/2012 13:30 EDT Office Visit [facility] Bariatric Surgery [address] [address] Leon Georges, PA-C [address] [place] [address] [address] [place] [phone] Morbid obesity (HCC-CMS) (Primary Dx) Discharge Disposition: Auto Discharge Social [...] Sign Reading Time Taken Comments Blood Pressure 112/70 05/28/2012 1334 EDT Pulse 64 05/28/2012 1334 EDT Temperature - - Respiratory Rate - - Oxygen Saturation - - Inhaled Oxygen Concentration - - Weight 91.4 kg (201 lb 6.4 oz) 05/28/2012 1334 E DT Height 149.7 cm (4' 10.94) 05/28/2012 1334 EDT Body Mass Index 40.76 05/28/2012 1334 EDT documented in this encounter Discharge Disposition Disposition Code Departure Means Destination Auto Discharge documented in this encounter Progress Notes * Leon Georges PA - 05/28/2012 1415 EDT 05/28/2012 SUBJECTIVE: Hannah returns to our office today for continued medically supervised weight loss in preparation for laparoscopic sleeve gastrectomy surgery. She is a 47 y.o. 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 Her comorbidities include asthma and GERD. Has stopped taking vitamin C due to possibility was causing bladder stones. Otherwise, she denies any changes to her medical history or medications since his previous visit. Hannah met with our program dietitian for 30 minutes to review preoperative dietary recommendations. I consulted with the dietitian following her visit with the patient and agree with her findings and recommendations. OBJECTIVE: On physical examination today, her BP 112/70 Pulse 64 Ht 149.7 cm (58.94) Wt 91.354 kg (201 lb 6.4 oz) BMI 40.76 kg/m2 and Body mass index is 40.76 kg/(m^2).. ASSESSMENT AND PLAN: Hannah will return to our office in a few weeks for continued medically-supervised weight loss in preparation for surgery. She understands that: We have approval and need to schedule. TIFFANY Fuentes * Charlotte Lima, RD - 05/28/2012 1357 EDT Medical Nutrition Evaluation-PRE OP NOTE Bariatric Clinic Nutrition Pre-op Visit Visit Number: 8 Desired surgery: Gastric Sleeve Subjective: Still not back to full activity with foot Food logs: on Babble Meal pattern: 3 Average caloric intake:<1000 janay most days Meal composition: generally well balanced with good fruit and veggies, some day lower protein Snacking: Exercise: limited now, hopes to return to exercise bike Objective: Weight: 201.4 lb Weight loss from last visit: -2.8 lb Total weight loss: Weight loss goal: Total Loss in lbs (Weight from Initial Consult - Today's Weight): 49.6 lbs Approximately 12 lb Surgery Date: Significant Medications and Supplements: multivitamin, B12, Vit D Assessment: Patient has met weight loss requirement for surgery Comments: good weight loss and overall intake though calories remain low. Advised her to increase her daily calories to 1000 per day and be sure to get adequate protein Plan: Diet Goals: Include protein at least 3 times a day, Keep food records, Eat more slowly and Calorie goal 1000 janay Exercise Goals: Increase time to 150 min per week as able Weight Loss Goal: Approximately 12 lb Weight Loss Remaining to Goal: Approximately met Reviewed: Food/Activity Record Next Visit: Pre-op follow-up visit documented in this encounter Plan of Treatment Not on file documented as of this encounter Visit Diagnoses Diagnosis Morbid obesity ([facility])- Primary Morbid obesity documented in this encounter Discontinued Medications Medication Sig Discontinue Reason Start Date End Da te ascorbic acid (VITAMIN C) 500 mg tablet Take 500 mg by mouth daily. Therapy completed 05/28/2012 documented as of this encounter Care Teams Water Rights Specialist Relationship Specialty Start Date End Date Avery Caballero MD [address] [place] [address] PCP - General 12/20/10 documented as of this encounter
--- OUTSIDE RECORDS SUMMARY | 2024-04-08 18:10 | XMS_ITS | Encounter Summary ---
Author Organization [facility] Address [address] [place] [address] Care Team Providers Care Personnel Clerks Supervisor Name Role Phone Avery Caballero MD Primary Care Provider [phone] Reason for Visit * Reason Comments Obesity Pre op Encounter Details Date Type Department Care Team (Late st Contact Info) Description 08/02/2012 15:45 EST Office Visit [facility] Bariatric Surgery [address] [id number] Leon Georges, PA-C [address] [place] [address], [facility] [address] [place] [address] Morbid obesity (HCC-CMS) (Primary Dx) Social History [...] Sign Reading Time Taken Comments Blood Pressure 122/80 08/02/2012 1536 EST Pulse 80 08/02/2012 1536 EST Temperature - - Respiratory Rate - - Oxygen Saturation - - Inhaled Oxygen Concentration - - Weight 92.6 kg (204 lb 3.2 oz) 08/02/[address] Height 149.7 cm (4' 10.94) 08/02/2012 1536 EST Body Mass Index 41.33 08/02/2012 1536 EST documented in this encounter Progress Notes * Charlotte Lima, RD - 08/02/2012 1621 EST Medical Nutrition Evaluation-PRE OP NOTE Bariatric Clinic Nutrition Pre-op Visit Visit Number: 10 Desired surgery: Gastric Sleeve Subjective: Hospitalized last week for n/v, vertigo-nothing found. Has been slowly increasing her intake back to normal. Hits weight loss plateaus at 200 lb and in the past would give up. Food logs: on web site Meal pattern: 3 Average caloric intake:900 janay Meal composition: generally well balanced Snacking: Exercise: to resume walking/elliptical Objective: Weight: 204.2 lb Weight loss from last visit: -0.4 lb Total weight loss: Weight loss goal: Total Loss in lbs (Weight from Initial Consult - Today's Weight): 46.8 lbs Approximately 12 lb Surgery Date: 09/23/12 Significant Medications and Supplements: multivitamin, Vit D, B12 Assessment: Patient has met weight loss requirement for surgery Comments: slower weight loss-advised patient aim for weight maintenance this month. Encouraged her to increase intake back to [id number] janay and resume exercise when she is able. Be prepared to reviewpre op liquid diet at next visit Plan: Diet Goals: Keep food records, Eat more slowly and Calorie goal 8307-1499 janay Exercise Goals: Increase time to 150 min per week Weight Loss Goal: Approximately 12 lb Weight Loss Remaining to Goal: Approximately met Reviewed: Food/Activity Record Next Visit: Pre-op follow-up visit * Leon Georges PA - 08/02/2012 1548 EST 08/02/2012 SUBJECTIVE: Hannah returns to our office today for continued medically supervised weight loss in preparation for laparoscopic sleeve gastrectomy surgery. She is a 47 y.o. 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 Her comorbidities include asthma and GERD. Was admitted to the hospital for nausea/vomiting and vertigo, multiple tests were negative. Otherwise, she denies any changes to her medical history or medications since his previous visit. Hannah met with our program dietitian for 30 minutes to review preoperative dietary recommendations. I consulted with the dietitian following her visit with the patient and agree with her findings and recommendations. OBJECTIVE: On physical examination today, her BP 122/80 Pulse 80 Ht 149.7 cm (58.94) Wt 92.625 kg (204 lb 3.2 oz) BMI 41.33 kg/m2 and Body mass index is 41.33 kg/(m^2).. ASSESSMENT AND PLAN: Hannah will return to our office in a few weeks for continued medically-supervised weight loss in preparation for surgery. She understands that: She is scheduled for surgery 09/23/12. H&P next month. TIFFANY Fuentes documented in this encounter Plan of Treatment Not on file documented as of this encounter Visit Diagnoses Diagnosis Morbid obesity ([facility])- Primary Morbid obesity documented in this encounter Historical Medications * This list may reflect changes made after this encounter. Medication Sig Dispensed Refills Start Date End Date azithromycin (ZITHROMAX Z-THEO) 250 mg tablet Take 250 mg by mouth daily. 08/30/2012 added in this encounter Care Teams Personnel Clerks Supervisor Relationship Specialty Start Date End Date Avery Caballero MD [address] [place] [id number] PCP - General 12/20/10 documented as of this encounter
--- OUTSIDE RECORDS SUMMARY | 2024-04-08 18:10 | XMS_ITS | Encounter Summary ---
Author Organization [facility] Address [address] [place] [address] Care Team Providers Care Developer [employer] Name Role Phone Avery Caballero MD Primary Care Provider [phone] Encounter Details Date Type Department Care Team (Latest Contact Info) Description 10/12/2011 8:22 EST - 10/12/2011 23:59 [facility] Hospital Encounter [facility] [address] [place] [address] Bebeto Culver MD [address] [place] [phone] Discharge Disposition: Home or Self Care Social History Tobacco Use Types Packs/Day Years Used Date Smoking Tobacco: Never Assessed Sex and Gender Information Value Date Recorded Sex Assigned at Not on file Gender Identity Not on file Sexual Orientation Not on file documented as of this encounter Medications at Time of Discharge Medication Sig Dispensed Refills Start Date End Date ALBUTEROL INHL Inhale 1 Puff as directed as needed. fluticasone (FLONASE) 50 mcg/actuation nasal spray 1 [place] by Nasal route 2 times daily. fluticasone-salmeterol (ADVAIR DISKUS) 250-50 mcg/dose diskus inhaler Inhale 1 Puff as directed 2 times daily. montelukast (SINGULAIR) 10 mg tablet Take 10 mg by mouth at bedtime. documented as of this encounter Discharge Disposition Disposition Code Departure Means Destination Home or Self Assisted documented in this encounter Plan of Treatment Not on file documented as of this encounter Visit Diagnoses Not on filedocumented in this encounter Care Teams Developer [employer]ver Mechanical Relationship Specialty Start Date End Date Avery Caballero MD [address] [place] [address] PCP - General 12/20/10 documented as of this encounter
--- OUTSIDE RECORDS SUMMARY | 2024-04-08 18:10 | XMS_ITS | Encounter Summary ---
Author Organization [facility] Address [address] [place] [address] Care Team Providers Care Gin Inspector Name Role Phone Avrey Caballero MD Primary Care Provider [phone] Reason for Visit * Reason Comments Obesity Pre op Encounter Details Date Type Department Care Team (Late st Contact Info) Description 03/27/2012 15:45 EDT Office Visit [facility] Bariatric Surgery [address] [address] Leon Georges, PA-C [address] [place] [address], [facility] [address] [place] [id number] Morbid obesity (HCC-CMS) (Primary Dx) Discharge Disposition: [...] Sign Reading Time Taken Comments Blood Pressure 118/60 03/27/2012 1611 EDT Pulse 76 03/27/2012 1611 EDT Temperature - - Respiratory Rate - - Oxygen Saturation - - Inhaled Oxygen Concentration - - Weight 93.1 kg (205 lb 3.2 oz) 03/27/2012 1611 [address] Height 149.7 cm (4' 10.94) 03/27/2012 1611 EDT Body Mass Index 41.53 03/27/2012 1611 EDT documented in this encounter Discharge Disposition Disposition Code Departure Means Destination Auto Discharge documented in this encounter Progress Notes * [address] - 03/27/2012 1640 EDT Medical Nutrition Evaluation-PRE OP NOTE Bariatric Clinic Nutrition Pre-op Visit Visit Number: 6 Desired surgery: Gastric Sleeve Subjective: Food logs: On [employer] Meal pattern: 3 meals, 1-2 snacks Average caloric intake:around 1000 calories/day Meal composition: Good, inadequate veggies Snacking:On 100 Calorie snacks like Skinny Cow ice-cream, Crackers Exercise:Rehad following knee replacement Meniscus February 27 and had not been exercising but is doing pool therapy at this time; Working with lion trainer next week(OK to do upper body and Core) Objective: Weight: 205.2 lbs Weight loss from last visit: +0.2 lbs Total weight loss: Weight loss goal: Total Loss in lbs (Weight from Initial Consult - Today's Weight): 45.8 lbs Approximately 12 lbs Surgery Date: Significant Medications and Supplements: MVM and other vitamins Assessment: Patient has made progress towards lifestyle changes Comments: Keeping food logs; Maintained wt despite limited exercise; Ready to be submitted but waiting until June due to work commitments. Plan: Diet Goals: Calorie goal 1100 calories/day Exercise Goals: Increase time to 150 minutes a week Weight Loss Goal: Approximately 12 lbs Weight Loss Remaining to Goal: Met goal Reviewed: Food/Activity Record Next Visit: Pre-op follow-up visit * Leon Georges PA - 03/27/2012 1629 EDT 03/27/2012 SUBJECTIVE: Hannah returns to our office today for continued medically supervised weight loss in preparation for laparoscopic sleeve gastrectomy surgery. She is a 47 y.o. 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 Her comorbidities include asthma and GERD. She had knee surgery this month and is still not fully weight bearing Otherwise, she denies any changes to her medical history or medications since his previous visit. Hannah met with our program dietitian for 30 minutes to review preoperative dietary recommendations. I consulted with the dietitian following her visit with the patient and agree with her findings and recommendations. OBJECTIVE: On physical examination today, her BP 118/60 Pulse 76 Ht 149.7 cm (58.94) Wt 93.078 kg (205 lb 3.2 oz) BMI 41.53 kg/m2 and Body mass index is 41.53 kg/(m^2).. ASSESSMENT: Hannah Ling continues to be an appropriate and motivated candidate for laparoscopic sleeve gastrectomy surgery with a Body mass index is 41.53 kg/(m^2). kg/(m^2). and multiple life-threatening comorbidities including asthma and GERD. Due to the life-threatening nature of morbid obesity and accompanying comorbidities, we believe that bariatric surgery is medically necessary for thispatient and will be submitting Hannah Ling information to the insurance company for prior authorization now that Hannah Ling has completed all of our program requirements. TIFFANY Fuentes documented in this encounter Plan of Treatment Not on file documented as of this encounter Visit Diagnoses Diagnosis Morbid obesity ([facility])- Primary Morbid obesity documented in this encounter Historical Medications * This list may reflect changes made after this encounter. Medication Sig Dispensed Refills Start Date End Date naproxen (NAPROSYN) 500 mg tablet Take 500 mg by mouth 2 times daily. 09/26/2012 added in this encounter Care Teams Gin Inspector Relationship Specialty Start Date End Date Avery Caballero MD [address] [place] [address] PCP - General 12/20/10 documented as of this encounter
--- OUTSIDE RECORDS SUMMARY | 2024-04-08 18:10 | XMS_ITS | Encounter Summary ---
Author Organization [facility] Address [address] [place] [address] Care Team Providers Care Professor Of Business Name Role Phone Avery Caballero MD Primary Care Provider [phone] Encounter Details Date Type Department Care Team (Latest Contact Info) Description 09/20/2012 5:36 EST - 09/22/2012 11:54 EST Hospital Encounter [facility] General Surgery Unit [address], [place] [id number] Bebeto Monteiro MD [address] [place] [phone] Morbid obesity (HCC-CMS) (Primary Dx); Preop examination; Asthma; GERD (gastroesophageal reflux disease) Discharge Disposition: Home or Self Care Social [...] Sign Reading Time Taken Comments Blood Pressure 132/75 09/22/2012 0748 EST Pulse 76 09/22/2012 0434 EST Temperature 36.7 ??C (98.1 ??F) 09/22/2012 0748 EST Respiratory Rate 16 09/22/2012 0748 EST Oxygen Saturation 96% 09/22/2012 0748 EST Inhaled Oxygen Concentration - - Weight 93 kg (205 lb) 09/18/2012 1354 EST Height 147.3 cm (4' 10) 09/18/2012 1354 EST Body Mass Index 42.85 09/18/2012 1354 EST documented in this encounter Discharge Summaries * Leon Georges PA - 09/22/2012 0918 EST Discharge Summary Chief Complaint/Reason for Admission: Morbid obesity Principal/Final Diagnosis: Morbid obesity Principal Procedure: Lap sleeve gastrectomy Date: 09/20/2012 Secondary Procedures: none Prognosis: good Condition at Discharge: Good Relevant Studies at Discharge: UGI - no leak Assessment at Discharge: Vital signs: Patient Vitals for the past 12 hrs: BP Pulse Resp Temp SpO2 O2 Device 09/22/12 0748 132/75 mmHg - 16 36.7 ??C (98.1 ??F) 96 % Room air 09/22/12 0434 116/70 mmHg 76 16 37.1 ??C (98.8 ??F) 95 % Room air 09/22/12 0001 140/68 mmHg 78 16 37.4 ??C (99.3 ??F) 97 % Room air Hospital Course: This 47 year old female was evaluated in the bariatric clinic. She had a lap sleeve gastrectomy on 09/20 with no complications. She had an UGI that showed no leak on POD1 and she was advanced per the bariatric diet pathway which she tolerated well. She is discharged home and will follow up in the clinic. Last Lab Results at Discharge: BUN: Lab Results Component Value Date BUN 4* 09/21/2012 Creatinine: No results found for this basename: CREATININE CBC: Lab Results Component Value Date WBC 11.63 09/21/2012 RBC 4.35 09/21/2012 HGB 12.8 09/21/2012 HCT 37.8 09/21/2012 MCV 87 09/21/2012 MCH 29.3 09/21/2012 MCHC 33.8 09/21/2012 PLT 166 09/21/2012 Electrolytes: Lab Results Component Value Date NA 140 09/21/2012 K 3.9 09/21/2012 CL 105 09/21/2012 CO2 26 09/21/2012 cc: PCP: AVERY CABALLERO MD Referring Prov:Avery Caballero Discharge Summary Completed: 09/22/12 documented in this encounter Discharge Instructions * Discharge Instructions* Leon Georges PA - 09/22/2012 9:18 EST Diet: Clear liquids for 4 days, then full liquids for 10 days Medications: Any medication larger than a pea should be cut up, crushed or the capsule opened. Activity: No heavy lifting or strenuous activity for 6 weeks Driving: No driving while taking narcotic pain medication Skin/Wound Care: Okay to get wound wet, but pat dry. Do NOT rub the wound area. Let Steri-Strips fall off on their own. Call your provider for problems with stiches, redness, pain, drainage or if stiches pull apart. Empty and record drain output daily Bathing: Okay to get wound wet, but pat dry. Do NOT rub the wound area. Shower only Pending Results: Not applicable Symptoms to Call Your Doctor About: Chest pain (angina) Fever greater than 101 or chills Inability to swallow or increasing difficulty swallowing Increased or new pain Nausea or vomiting Shortness of breath or rapid breathing Signs of infection such as pain, redness, swelling or drainage at procedure or wound site Appointments: See Bebeto Denney MD in 1 week for drain and staple removal. Please call for an appointment. See Dr. AVERY CABALLERO MD as needed. Please call for an appointment. Follow-up Services Contacted at Discharge: Attending physician Health Risk and Disease Information: Not applicable documented in this encounter Medications at Time of Discharge Medication Sig Dispensed Refills Start Date End Date acetaminophen (TYLENOL) 650 mg/20.3 mL solution Take 20.3 mL by mouth every 4 hours. 09/22/2012 ALBUTEROL INHL Inhale 1 Puff as directed as needed. cholecalciferol, Vitamin D3, (VITAMIN D3) 2,000 unit tablet Take 2,000 Units by mouth daily. cyanocobalamin 500 mcg tablet Take 500 mcg by mouth daily. fluticasone (FLONASE) 50 mcg/actuation nasal spray 1 [place] by Nasal route 2 times daily. fluticasone-salmeterol (ADVAIR DISKUS) 250-50 mcg/dose diskus inhaler Inhale 1 Puff as directed 2 times daily. montelukast (SINGULAIR) 10 mg tablet Take 10 mg by mouth at bedtime. Multivitamins with Minerals Tab Take 1 Tab by mouth daily. omeprazole (PRILOSEC) 40 mg capsule Take 1 Cap by mouth daily. 30 Cap 2 09/22/2012 pyridoxine (VITAMIN B6) 50 mg tablet Take 50 mg by mouth daily. naproxen (NAPROSYN) 500 mg tablet Take 500 mg by mouth 2 times daily. 09/26/2012 ondansetron (ZOFRAN ODT) 4 mg disintegrating tablet Take 1 Tab by mouth every 6 hours as needed for Nausea. 12 Tab 0 09/22/2012 09/26/2012 oxycodone (ROXICODONE) 5 mg/5 mL solution Take 5-10 mL by mouth every 3 hours as needed for Pain. 200 mL 0 09/22/2012 09/26/2012 documented as of this encounter Ordered Prescriptions Prescription Sig Dispensed Refills Start Date End Da te omeprazole (PRILOSEC) 40 mg capsule Take 1 Cap by mouth daily. 30 Cap 2 09/22/2012 acetaminophen (TYLENOL) 650 mg/20.3 mL solution Take 20.3 mL by mouth every 4 hours. 09/22/2012 oxycodone (ROXICODONE) 5 mg/5 mL solution Take 5-10 mL by mouth every 3 hours as needed for Pain. 200 mL 0 09/22/2012 09/26/2012 ondansetron (ZOFRAN ODT) 4 mg disintegrating tablet Take 1 Tab by mouth every 6 hours as needed for Nausea. 12 Tab 0 09/22/2012 09/26/2012 documented in this encounter Discharge Disposition Disposition Code Departure Means Destination Home or Self Care documented in this encounter Progress Notes * Leon Georges PA - 09/22/2012 0734 EST General Surgery Daily Progress Note Admit Date: 09/20/2012 Hospital Day: LOS: 2 days Date of Service: 09/22/2012 POD#2 s/p laparoscopic sleeve gastrectomy with hiatal hernia repair/crural pexy for morbid obesity/hiatal hernia 24h events: UGI normal Subjective: Pain controlled, no nausea with 30cc cups, ambulating in hallway Current Facility-Administered Medications Medication Route Frequency ??? oxycodone (ROXICODONE) solution 5-15 mg oral Q4H PRN ??? fluticasone (FLONASE) nasal spray 1 [place] nasal - both BID ??? fluticasone-salmeterol (ADVAIR) 250-50 mcg/dose diskus inhaler 1 Puff inhalation BID ??? sodium chloride 0.9 % flush 3 mL intravenous Q8H ??? lansoprazole (PREVACID SOLUTAB) disintegrating tablet 30 mg oral DAILY ??? metoCLOPramide (REGLAN) injection 10 mg intravenous Q6H ??? ondansetron (PF) (ZOFRAN) injection 4 mg intravenous Q4H PRN ??? ondansetron (ZOFRAN-ODT) disintegrating tablet 4 mg oral Q6H PRN ??? promethazine (PHENERGAN) injection 25 mg intramuscular Q6H PRN ??? heparin injection 5,000 Units subcutaneous Q8H ??? hydrALAzine (APRESOLINE) 10 mg in sodium chloride (NS) 0.9 % 50 mL IVPB intravenous Q4H PRN ??? oxycodone (ROXICODONE) solution 5-10 mg oral Q3H PRN ??? acetaminophen (TYLENOL) solution 650 mg oral Q4H ??? naloxone (NARCAN) injection 0.1-0.4 mg intravenous PRN ??? albuterol (VENTOLIN HFA) inhaler 1 Puff inhalation Q4H PRN ??? acetaminophen (TYLENOL) suppository 650 mg rectal Q6H PRN Review of Systems: As noted above in subjective Objective/Physical Exam: Vital Signs: Temp: [37.1 ??C (98.8 ??F)-37.9 ??C (100.2 ??F)] , Pulse: [76-80] , Resp: [16] , BP: (109-140)/(58-74) , SpO2: [94 %-98 %] SpO2: 95 % Pain: Patient Vitals for the past 8 hrs: Numeric Pain Level (Scale 1-10) Asleep 09/22/12 0654 2 - 09/22/12 0401 0 Reassessed, sleeping comfortably, RR WNL. 09/22/12 0300 0 Reassessed, sleeping comfortably, RR WNL. 09/22/12 0150 1 - 09/22/12 0047 0 Reassessed, sleeping comfortably, RR WNL. 09/21/12 2352 4 - Glucose Readings: (last 2 readings) No results found for this basename: GLUCOSEFINGE:2 in the last 72 hours I+O: Intake/Output Summary (Last 24 hours) at 09/22/1234 Last data filed at 09/22/12 0456 Gross per 24 hour Intake 3175.2 ml Output 3360 ml Net -184.8 ml Exam: General: Pt is resting comfortably in bed; NAD CV: Regular rate and rhythm Resp: Clear to auscultation bilaterally Abd: obese, soft, appropriately tender, nondistended, incisions C/D/I Drains: bilateral drains with serosanguinous output Extrem: warm and well perfused; no cyanosis or edema Labs: WBC/Hgb/Hct/Plts: 11.63/12.8/37.8/166 (09/21 633) Na/K/Cl/CO2: 140/3.9/105/26 (09/21 633) BUN/Cr/glu/ALT/AST/amyl/lip: 4/--/--/--/--/--/-- (09/21 633) Assessment: POD2 s/p laparoscopic sleeve gastrectomy with hiatal hernia repair/crural pexy for morbid obesity/hiatal hernia. Doing well. On pathway. No tachycardia. Active Hospital Problems Diagnoses ??? *Morbid obesity ??? GERD (gastroesophageal reflux disease) Plan: Clear liquid diet Pain control with oral meds Saline lock IVF and d/c WOOD BLOCK ARTIST Ambulate/ IS Drain teaching discharge today TIFFANY Fuentes 09/22/2012 7:34 * Amari Alonso MD - 09/21/2012 0706 EST General Surgery Daily Progress Note Admit Date: 09/20/2012 Hospital Day: LOS: 1 day Date of Service: 09/21/2012 POD#1 s/p laparoscopic sleeve gastrectomy with hiatal hernia repair/crural pexy for morbid obesity/hiatal hernia 24h events: To OR as above. Subjective: Doing ok this morning--still with persistent nausea, somewhat relieved by zofran. Had aterrible night because of the nausea. Pain well controlled. No flatus or BM yet. Hasnt ambulated yet. Denies fevers, chills, sweats, CP, SOB, vomiting, dysuria. Current Facility-Administered Medications Medication Route Frequency ??? ketOROLAC (TORADOL) injection 30 mg intravenous Now ??? ketOROLAC (TORADOL) injection 15 mg intravenous Q6H ??? fluticasone (FLONASE) nasal spray 1 [place] nasal - both BID ??? fluticasone-salmeterol (ADVAIR) 250-50 mcg/dose diskus inhaler 1 Puff inhalation BID ??? sodium chloride 0.9 % flush 3 mL intravenous Q8H ??? pantoprazole (PROTONIX) injection 40 mg intravenous DAILY ??? lansoprazole (PREVACID SOLUTAB) disintegrating tablet 30 mg oral DAILY ??? metoCLOPramide (REGLAN) injection 10 mg intravenous Q6H ??? ondansetron (PF) (ZOFRAN) injection 4 mg intravenous Q4H PRN ??? ondansetron (ZOFRAN-ODT) disintegrating tablet 4 mg oral Q6H PRN ??? promethazine (PHENERGAN) injection 25 mg intramuscular Q6H PRN ??? heparin injection 5,000 Units subcutaneous Q8H ??? hydrALAzine (APRESOLINE) 10 mg in sodium chloride (NS) 0.9 % 50 mL IVPB intravenous Q4H PRN ??? oxycodone (ROXICODONE) solution 5-10 mg oral Q3H PRN ??? acetaminophen (TYLENOL) solution 650 mg oral Q4H ??? naloxone (NARCAN) injection 0.1-0.4 mg intravenous PRN ??? dextrose 5 % and 0.45 % NaCl with KCl 20 mEq/L infusion intravenous CONTINUOUS ??? HYDROmorphone (PF) (DILAUDID) 1 mg/mL injection 0.2-0.4 mg intravenous Q2H PRN ??? HYDROmorphone 1 mg/ml (DILAUDID) WOOD BLOCK ARTIST, 30 ml - LATEX SAFE intravenous CONTINUOUS ??? HYDROmorphone 1 mg/ml (DILAUDID) WOOD BLOCK ARTIST, 30 ml - LATEX SAFE intravenous Q30 MINUTES PRN ??? albuterol (VENTOLIN HFA) inhaler 1 Puff inhalation Q4H PRN ??? acetaminophen (TYLENOL) suppository 650 mg rectal Q6H PRN Review of Systems: As noted above in subjective Objective/Physical Exam: Vital Signs: Temp: [35.6 ??C (96.1 ??F)-38 ??C (100.4 ??F)] , Pulse: [91-109] , Resp: [16-21] , BP:(120-161)/(66-86) , SpO2: [98 %-100 %] SpO2: 100 % Pain: Patient Vitals for the past 8 hrs: Numeric Pain Level (Scale 1-10) 09/20/12 2351 4 Glucose Readings: (last 2 readings) No results found for this basename: GLUCOSEFINGE:2 in the last 72 hours I+O: Intake/Output Summary (Last 24 hours) at 09/21/12 0706 Last data filed at 09/21/12 0500 Gross per 24 hour Intake 4554.17 ml Output 3240 ml Net 1314.17 ml Exam: General: Pt is resting comfortably in bed; NAD CV: RRR with normal S1 and S2; no m/r/g Resp: CTAB without w/r/r Abd: obese, soft, appropriately tender, ND, no BS; no rebound or guarding. Dressings C/D/I : Cabrera in place and draining clear, yellow urine Drains: bilateral drains with serosanguinous output Extrem: warm and well perfused; distant pulses (DP and PT) intact and symmetrical bilaterally; no cyanosis or edema Labs: WBC/Hgb/Hct/Plts: 8.56/12.9/38.0/167 (09/20 1943) Na/K/Cl/CO2: 134/3.9/102/23 (09/20 1943) BUN/Cr/glu/ALT/AST/amyl/lip: 6/--/--/--/--/--/-- (09/20 1943) Assessment: POD#1 s/p laparoscopic sleeve gastrectomy with hiatal hernia repair/crural pexy for morbid obesity/hiatal hernia. Mildly febrile and tachy overnight now resolved. Still with persistent nausea but no rosie emesis. Pain well controlled. AVSS and HD stable. Active Hospital Problems Diagnoses ??? *Morbid obesity ??? GERD (gastroesophageal reflux disease) Plan: Pain control--will add 30 toradol x1 now and then 15q6h x24h IS at bedside UGI today--will adv diet per protocol if negative NPO, IVF Drain teaching D/c cabrera cath--DTV dispo possibly tomorrow Amari Alonso MD 09/21/2012 7:06 Surgery Cardiac Exercise Physiologist [phone] * Joana Smart MD - 09/20/2012 1702 EST SURGERY Post Op Check Admit Date: 09/20/2012 Hospital Day: LOS: 0 days Date of Service: 09/20/2012 Procedure: Laparoscopic sleeve gastrectomy with hiatal hernia repair/crural pexy Complications: None Subjective/ROS: Patient is experiencing severe epigastric pain which she rates as an 8/10. She is not sure whether her pain medications are helping. States that she has been mostly sleeping since theend of the surgery, and is difficult to arouse but responds appropriately to questions. Denies shortness of breath, chest pain, fever, chills. Attests to having some nausea, which is constant, but has not vomited. Current Facility-Administered Medications Medication Route Frequency ??? fluticasone (FLONASE) nasal spray 1 [place] nasal - both BID ??? fluticasone-salmeterol (ADVAIR) 250-50 mcg/dose diskus inhaler 1 Puff inhalation BID ??? sodium chloride 0.9 % flush 3 mL intravenous Q8H ??? pantoprazole (PROTONIX) injection 40 mg intravenous DAILY ??? lansoprazole (PREVACID SOLUTAB) disintegrating tablet 30 mg oral DAILY ??? metoCLOPramide (REGLAN) injection 10 mg intravenous Q6H ??? ondansetron (PF) (ZOFRAN) injection 4 mg intravenous Q4H PRN ??? ondansetron (ZOFRAN-ODT) disintegrating tablet 4 mg oral Q6H PRN ??? promethazine (PHENERGAN) injection 25 mg intramuscular Q6H PRN ??? heparin injection 5,000 Units subcutaneous Q8H ??? hydrALAzine (APRESOLINE) 10 mg in sodium chloride (NS) 0.9 % 50 mL IVPB intravenous Q4H PRN ??? oxycodone (ROXICODONE) solution 5-10 mg oral Q3H PRN ??? acetaminophen (TYLENOL) solution 650 mg oral Q4H ??? naloxone (NARCAN) injection 0.1-0.4 mg intravenous PRN ??? dextrose 5 % and 0.45 % NaCl with KCl 20 mEq/L infusion intravenous CONTINUOUS ??? ceFAZolin (ANCEF) 2 g in sodium chloride 0.9% 50 mL IVPB intravenous Q8H ??? HYDROmorphone (PF) (DILAUDID) 1 mg/mL injection 0.2-0.4 mg intravenous Q2H PRN ??? HYDROmorphone 1 mg/ml (DILAUDID) WOOD BLOCK ARTIST, 30 ml - LATEX SAFE intravenous CONTINUOUS ??? HYDROmorphone 1 mg/ml (DILAUDID) WOOD BLOCK ARTIST, 30 ml - LATEX SAFE intravenous Q30 MINUTES PRN ??? albuterol (VENTOLIN HFA) inhaler 1 Puff inhalation Q4H PRN ??? acetaminophen (TYLENOL) suppository 650 mg rectal Q6H PRN Objective VS: BP 134/74 Temp(Src) 36.9 ??C (98.4 ??F) (Tympanic) Resp 16 Ht 147.3 cm (58) Wt 92.987 kg (205 lb) BMI 42.84 kg/m2 SpO2 100% Intake/Output Summary (Last 24 hours) at 09/20/12 1704 Last data filed at 09/20/12 1300 Gross per 24 hour Intake 2600 ml Output 475 ml Net 2125 ml Exam: Gen - Awake and alert, no distress, cooperative Resp - CTAB Cards - RRR Abd - soft, appropriately tender, non distended, no bowel sounds Ext - WWP, no edema, +2 DPs : Cabrera catheter with clear urine in bag Wound(s) - Dressing CDI, no swelling, drainage or erythema, serosanguinous fluid in drains (bilateral drains) Assessment: 47 year old female POD#0 s/p laparoscopic sleeve gastrectomy with hiatal hernia repair/crural pexy.Hemodynamically stable, in significant pain but seemingly appropriate after this surgery. Mildly tachycardic. However, she has good urine output and other vital signs are stable. Difficult to arouse most likely due to residual anesthesia as she has only used her WOOD BLOCK ARTIST twice since arriving to the floor. Plan: 1) NPO 2) Continue IVF 3) Continue current pain management protocol with WOOD BLOCK ARTIST, but avoid allowing the patient to use until she is more alert 4) FU labs for tonight 5) Upper GI series in the morning 6) Reglan/Zofran for nausea 7) Encourage ambulation Courtney Hardy 09/20/2012 17:12 ADDENDUM: Agree with plan above. Joana Smart MD 19:59 09/20/2012 #[id number] * Brigette Lopez - 09/20/2012 1239 EST 1239 Report to [facility] LYLES 1310 Report from Elliott LYLES B6 notified of pt previous oral surg and sutures. Anes stated all intact upon extubation * Haritha Lucas RN - 09/20/2012 0703 EST Small blisters noted just above Tegaderm right antecubital. Tegaderm removed; iv site covered with dry gauze and paper tape. * Heather Grullon RN - 09/18/[address] Sushil has been instructed as follows regarding medication administration for the day of the scheduled procedure. Date of Surgery: 09/20/12 Instructions for Taking Medications Day of Surgery Medication Last Dose Hold DOS Take DOS naproxen (NAPROSYN) 500 mg tablet None in months cholecalciferol, Vitamin D3, (VITAMIN D3) 2,000 unit tablet x pyridoxine (VITAMIN B6) 50 mg tablet x cyanocobalamin 500 mcg tablet xx pantoprazole (PROTONIX) 40 mg tablet x Multivitamins with Minerals Tab x fluticasone-salmeterol (ADVAIR DISKUS) 250-50 mcg/dose diskus inhaler x fluticasone (FLONASE) 50 mcg/actuation nasal spray x montelukast (SINGULAIR) 10 mg tablet X hs ALBUTEROL INHL X prn and bring documented in this encounter H&P Notes * Amari Alonso MD - 09/20/2012 0710 EST SURGERY H&P S: 47yoF who presents today in preparation of lap gastric sleeve for morbid obesity. No changes in health or medications since she was last seen in clinic. No fevers, chills, CP, SOB, abdominal pain,nausea, vomiting, easy bleeding/bruising. O: BP 91/58 Temp(Src) 35.6 ??C (96.1 ??F) (Tympanic) Resp 14 Ht 147.3 cm (58) Wt 92.987 kg(205 lb) BMI 42.84 kg/m2 SpO2 100% No past medical history on file. Past Surgical History Procedure Date ??? Hysterectomy ??? Appendectomy Allergies: Latex, Natural Rubber Meclizine Tegaderm Ag Mesh No current facility-administered medications on file prior to encounter. Current Outpatient Prescriptions on File Prior to Encounter Medication Sig Dispense Refill ??? naproxen (NAPROSYN) [...] fluticasone (FLONASE) 50 mcg/actuation nasal spray 1 [place] by Nasal route 2 times daily. ??? montelukast (SINGULAIR) 10 mg tablet Take 10 mg by mouth at bedtime. ??? ALBUTEROL INHL Inhale 1 Puff as directed as needed. Gen-lying comfortably in bed; NAD CV-RRR Resp-CTAB Abd-obese, soft, NT, ND, +BS A/P: 47yoF who presents today in preparation for lap gastric sleeve for morbid obesity. Preop abx. All questions answered. Ready for OR. Amari Alonso MD 09/20/2012 7:23 Surgery Cardiac Exercise Physiologist [phone] documented in this encounter Procedure Notes * DATE NIGHT CAREGIVER, SAL 2 - 09/26/2012 1326 ESTAssociated Order(s): ECG REPORT - SCANNED documented in this encounter Nursing Notes * DATE NIGHT CAREGIVERSAL 2 - 09/26/2012 1326 EST documented in this encounter OR Notes * OR Surgeon - Bebeto Monteiro MD - 09/25/2012 1251 EST OPERATIVE REPORT SERVICE DATE: 09/20/2012 PREOPERATIVE DIAGNOSIS: Morbid obesity, BMI of 45. POSTOPERATIVE DIAGNOSIS: Morbid obesity, BMI of 45. PROCEDURE: Laparoscopic sleeve gastrectomy over a 46-Green[place]ic bougie as well as an anterior cruropexyrepair of hiatal hernia. SURGEON: Bebeto Monteiro MD CHAIN DYER: Nayeli Mills MD (There were no qualified residents to automotive parts counter assistant in the case.) INDICATIONS: Morbidly obese female who failed multiple dietary attempts in the past and elected to have laparoscopic sleeve gastrectomy. NARRATIVE: The patient was brought to the operating room, placed in supine position, underwent ET tube intubation and general anesthesia. The patient was strapped to the table. A foot board was placed and secured. Both arms were protected and kept abducted at a right angle to the body at 90 degrees. After induction of anesthesia, one dose of antibiotic prophylaxis was given. The patient also received 5000 units of subcu heparin along with prophylactic antibiotics. The patient had an upper body Marc Hugger applied. Cabrera catheter was placed. An orogastric calibration tube was passed by anesthesia into the stomach and placed on suction. The patient's abdomen was prepped and draped in normal sterile surgical fashion. Everybody in the room introduced him or herself. Time-out was completed. The patient was identified by name, medical record number and date of . Plan for the procedure was confirmed, consent form was checked. Instruments and equipment were checked and everything we neede d was available for the operation. Access into the peritoneal cavity was gained through a small transverse incision off the upper midline of the periumbilical region with a 12 mm Optiview. We insufflated the abdomen with 15 mm of pressure with CO2. We then placed the patient in slight reverse Trendelenburg with the left side up, positioned to facilitate further trocar placement. We placed a 5 mm subxiphoid for a laparoscopic liverretractor, an additional right upper quadrant 12 mm trocar, a midepigastric 12 mm trocar, a left upper quadrant 12 mm trocar and a left flank 5 mm and a right lower quadrant 15 mm trocar to facilitate introduction of the stapler and specimen retrieval. All these trocars were bladeless and they were inserted under direct laparoscopic visualization. The liver retractor was then placed through the 5mm subxiphoid trocar. The left lateral segment of the liver was elevated out of the way to expose the GE junction and the gastric fundus. The retractor was then fastened to the table. Anesthesia was asked to remove the OG tube, as well as any esophageal probe after complete decompression and suctioning of the stomach. With the trocars in proper position, the fundus of the stomach was grasped and retracted caudally exposing the gastrophrenic ligament. No hiatal hernia was identified. Pyloric channel was identified and approximately 6 cm proximal to it the short gastric vessels of the greater cu rvature were taken down all the way up to the GE junction with a Harmonic scalpel. A 46-Greenlandic bougie was passed transorally under direct vision into the stomach until it reached theproximal pyloric channel. The anterior aspect of the right and left crura were exposed. I put two 2-0 Ethibond sutures to close the esophageal hiatus securely around the 46-Green[place]ic bougie. The thick antrum of the stomach was vertically transected using 2 applications of the 45 mm Endo-CORBY loaded with a green cartridge around the bougie to create a gastric tube. Transection of the stomach was completed after another application loaded with a purple 3.8 mm Endo-CORBY. To complete the transection of the stomach, an additional 45 mm Endo-CORBY with a blue cartridge 3.5 mm firing x2 up to the level of the GE junction. Please note that prior to any firing of the seng, the seng were secured against the bougie on both sides. We had moved the bougie prior to firing any of the seng. Next, the staple line was then imbricated with a running 2-0 Vicryl stitch on an SH needle over the bougie fromeach direction for hemostasis and to prevent leaks. Once the suture was finished from the superior staple line, a second suture was placed on the inferior staple line and sutured in a cephalad fashion. We had to use a third suture due to the length of the staple line, again of 2-0 Vicryl to complete our implication. Good hemostasis had been attained. The bougie was removed without difficulty. Theleft upper quadrant was irrigated with warm normal saline above the spleen and suctioned. No bleeding points were identified. The liver retractor was removed under direct visualization. After placingthe specimen in an Endocatch bag, the area was irrigated again. A 19-Greenlandic Spencer drain was placed in the subhepatic area near the staple line at the conclusion of the procedure to identify any postoperative bleeding or leak and this was sutured in with a 2-0 nylon suture. The specimen was then removed from the 15 mm trocar site. This was enlarged. The fascia had been enlarged and once the specimen was out we closed this with a #1 Vicryl on a UR needle after securing hemostasis. The wound was then copiously irrigated with normal saline and hemostasis was achieved. The other trocar sites were closed with skin seng. We applied Telfa and Tegaderm. We sutured the drain in with a 3-0 nylon suture. The patient tolerated the procedure well. All needles, instruments and lap pads were accountedfor. I was present for the entire case. The patient was extubated in the operating room and sent toPACU in good condition. Unless otherwise noted, there were no complications, no blood loss, no cultures obtained, no specimens removed, and no drains retained. Bebeto Monteiro MD 11 35 AM / Bebeto Monteiro MD ss Confirmation: [id number] Dictation ID: [id number] * Anesthesia Procedure Notes - DATE NIGHT CAREGIVER, SCAN 2 - 09/20/2012 1144 EST * OR PreOp - DATE NIGHT CAREGIVER, SCAN 2 - 09/20/2012 1137 EST * Anesthesia Preprocedure Evaluation - DATE NIGHT CAREGIVER, SCAN 2 - 09/20/2012 0734 EST documented in this encounter Miscellaneous Notes * Scanned Note-Null - DATE NIGHT CAREGIVER, SCAN 2 - 10/01/2012 1307 EST * Scanned Note-Null - DATE NIGHT CAREGIVER, SCAN 2 - 09/26/2012 1326 EST * Scanned Note-Null - DATE NIGHT CAREGIVER, SCAN 2 - 09/26/2012 1326 EST * Plan of Care - Rickie Goode RN - 09/22/2012 1118 EST Data: Patient with order for discharge. Action: Instructed patient regarding drain care (see education documentation), removed PIV, changeddrain dressing and provided patient with supplies and scripts from MD. Covered seng per patient request. Will review discharge summary with patient. Response: Patient getting dressed and awaiting for ride. 1130 at bedside. Patient stated she had no further questions. Will be wheeled to car with when ready. 1154 Patient discharged at 1154. Rickie Goode RN 09/22/2012 11:18 * Plan of Care - Jerica Auguste RN - 09/22/2012 0342 EST Problem: PSYCHOSOCIAL Goal: Promotion Of Rest Is Encouraged Throughout Hospital Stay Outcome: Ongoing Data: pt sleeping, lap sites on abdomen all CDI, [place] on lap sites due to allergy to tegaderm, IVF @ 125, OOB with contact guard, pt on 60cc/hr clears. Action: administered scheduled medications, clustered care, darkened room, call persaud within reach. Response: pt continues to sleep, will continue to monitor. Jerica Auguste RN 09/22/2012 3:33 * Plan of Care - Maggy Almaraz RN - 09/21/2012 1816 EST Problem: PAIN Goal: Patient???s pain/discomfort is manageable/tolerable Outcome: Ongoing Data: pt rating pain 2/10, stating this is tolerable. Pt ambulating in kaufman independently. UGI completed today. Cabrera removed during day, pt DTV by 2029. Action: assessed pain. Assisted pt OOB as needed. Medicated as ordered. Per MD Alonso, pt able to advance diet. Provided fluids and explained 60cc/hr rule. Response: pt tolerating water at this time. Voided 200 cc yellow, clear urine. Pain controlled withtoradol. Pt currently sleeping. Will continue to monitor. Maggy Almaraz RN 09/21/2012 18:06 * Plan of Care - Ananth Engel RN - 09/21/2012 1447 EST Problem: MOBILITY Goal: Mobility/Activity Is Maintained At Optimum Level For Patient Outcome: Ongoing Data: Pt POD #1 s/p lap sleeve and hiatal hernia repair. Pt nauseous and dry heaving much of the morning. Received promethazine at 0640 and ondansetron at 0500. Action: Called Dr Alonso and received order for x1 dose of ondansetron. Administered at 0800. Assisted pt to transfer to a chair and bathe this a.m. D/c'd cabrera upon return from UGI. Response: Pt currently ambulating around unit with family. Pain tolerable, WOOD BLOCK ARTIST d/c'd per Dr Alonso,as pt wasn't using d/t resulting nausea. Pt able to make needs known, will continue to monitor. ANANTH ENGEL RN 09/21/2012 14:42 * Plan of Care - Caitlyn Gallardo - 09/21/2012 0321 EST Problem: FLUID AND ELECTROLYTE BALANCE Goal: Fluid And Electrolyte Balance Are Achieved/Maintained Intervention: Assess/monitor intake and output Data: Pt c/o of nausea and dry-heaving. Slightly elevated temp at 2300 (38.0). JPx2 intact and to suction. Action: Zofran IV given twice during evening shift. Response: Pt still c/o nausea; IV phenergan given. Pt now resting without c/o nausea. Caitlyn Gallardo RN 09/21/2012 3:16 * Plan of Care - Daniela Mccall - 09/20/2012 5346 EST Problem: PAIN Goal: Patient???s pain/discomfort is manageable/tolerable Intervention: Assess pain level Data: Pt complains of pain scale of 8, located in upper abdomen Action: Reminded pt of commercial reporter pump, and how to use Response: Pt response pain scale decreased to 3 in 20 minutes Daniela Mccall 09/20/2012 17:33 * Anesthesia Post-Eval - Miriam Guillen MD - 09/20/2012 1327 EST Post Anesthesia Evaluation Note Date of Service: 09/20/2012 Hannah Wong, a 47 y.o. year old female has received General Anesthesia She has been evaluated, assessed and discharged from anesthesia care with stable cardiorespiratory function and alert mental status. The last set of recorded vital signs and pain rating were reviewed: Temp: 36 ??C (96.8 ??F) (09/20/12 1245), Heart Rate: 64 BPM (09/20/12 1315), BP: 138/70 mmHg (09/20/12 1315), Resp: 20 (09/20/12 1315), SpO2: 100 % (09/20/12 131),Numeric Pain Level (Scale 1-10): 0 Hannah Wong participated in this evaluation unless otherwise noted. Her pain, nausea and vomiting have been managed and her body temperature and fluid balance have been restored. Additional monitoring and assessment needs have been addressed. If present, any postoperative events are documented below. If the regional block for postoperative analgesia was intended to last greater than 48 hours, Hannah Wong will be followed by the Acute Pain Service. Miriam Guillen MD 09/20/2012 13:27 * Brief Op Note - Amari Alonso MD - 09/20/2012 1134 EST BRIEF OP NOTE Preop dx: morbid obesity and hiatal hernia Postop dx: same Procedure: Laparoscopic sleeve gastrectomy with hiatal hernia repair/crural pexy Surgeon: MD Abiola Bridge Attacher: MD Gene, MD April Anesth: GET Findings: Small hiatal hernia--diaphragmatic defect repaired. Good hemostasis achieved. Staple lineoversewn. 2 drains placed next to suture line. Incisions closed with seng, covered with 2x2 and medipore. EBL: Minimal IVF: 2300cc UOP: 150cc clear yellow urine Specimen: Portion of stomach Foreign Material Retained: none Complications: none Dispo: To PACU in stable condition Amari Alonso MD 09/20/2012 7:24 Surgery Cardiac Exercise Physiologist [phone] * Scanned Note-Null - DATE NIGHT CAREGIVER, SCAN 2 - 09/20/2012 0549 EST * Scanned Note-Null - DATE NIGHT CAREGIVER, SCAN 2 - 09/20/2012 0548 EST documented in this encounter Plan of Treatment Not on file documented as of this encounter Procedures Procedure Name Priority Date/Time Associated Diagnosis Comments ECG REPORT - SCANNED 09/26/2012 13:26 EST FL UPPER GI SERIES W/O AIR CONTRAST Routine 09/21/2012 14:14 EST COMPLETE BLOOD COUNT Routine 09/21/2012 6:34 EST BUN Routine 09/21/2012 6:34 EST MAGNESIUM Routine 09/21/2012 6:34 EST ELECTROLYTES Routine 09/21/2012 6:34 EST COMPLETE BLOOD COUNT Routine 09/20/2012 19:44 EST BUN Routine 09/20/2012 19:44 EST MAGNESIUM Routine 09/20/2012 19:44 EST ELECTROLYTES Routine 09/20/2012 19:44 EST SURGICAL PATHOLOGY Routine 09/20/2012 10 :18 EST TYPE AND SCREEN Routine 09/20/2012 6:16 EST Morbid obesity (HCC-CMS) Preop examination Asthma GERD (gastroesophageal reflux disease) documented in this encounter Results * ECG REPORT - SCANNED (09/26/2012 13:26 EST) 09/26/2012 13:2 6 EST Narrative 09/26/2012 14:00 EST Procedure Note DATE NIGHT CAREGIVER, SCAN 2 - 09/26/2012 13:26 EST Scan 2 Reimbursement Coordinator PROCEDURE/MINOR AVELINA GICAL ORDERABLES * FL UPPER GI SERIES W/O AIR CONTRAST (09/21/2012 14:14 EST) Anatomical Region Laterality Modality Other 09/21/2012 14:1 4 EST 09/21/2012 20:00 EST Narrative 09/21/2012 20:00 EST FL UPPER GISERIES WO/AIR CONTR ??Sep 21, 2012 02:14:00 PM Signs and Symptoms/Comments: ??Morbid Obesity S/P Lap Gastric Sleeve Comparison: None. Technique: Spot and fluoroscopic images centered over the gastric sleeve were performed before and after the administration of oral contrast. Findings: Postoperative changes from a recent gastric sleeve are noted on the initial spot image. A drainage tube is in place. After the administration of oral contrast no extravasation is seen. Reflux from the gastric sleeve into the esophagus was noted at multiple points during the study. Impression: 1. No extraluminal extravasation of contrast is identified. 2. Reflux. Case was reviewed by Dr. Barrera with AMARI ALONSO MD. I have personally reviewed the images and the above interpretation and agree with the findings. Procedure Note Christy Barrera MD - 09/21/2012 FL UPPER GISERIES WO/AIR CONTR Sep 21, 2012 02:14:00 PM Signs and Symptoms/Comments: Morbid Obesity S/P Lap Gastric Sleeve Comparison: None. Technique: Spot and fluoroscopic images centered over the gastric sleeve were performed before and after the administration of oral contrast. Findings: Postoperative changes from a recent gastric sleeve are noted on the initial spot image. A drainage tube is in place. After the administration of oral contrast no extravasation is seen. Reflux from the gastric sleeve into the esophagus was noted at multiple points during the study. Impression: 1. No extraluminal extravasation of contrast is identified. 2. Reflux. Case was reviewed by Dr. Brarera with AMARI ALONSO MD. I have personally reviewed the images and the above interpretation and agree with the findings. Amari Alonso MD IMG FLUOROSCOPY [facility]IGE [facility]LER * MAGNESIUM (09/21/2012 6:34 EST) Magnesium 1.8 1.7 - 2.8 mg/dl [facility] Blood specimen (specimen) 09/21/2012 6:34 EST 09/21/2012 7:49 EST Amari Alonso MD CHEMISTRY & BLOOD GA S ORDERABLES Performing Organization Address [facility] Co de Phone Number [facility] [address] [place] [address] * (ABNORMAL) BUN (09/21/2012 6:34 EST) BUN 4(L) 10 - 26 mg/dl [facility] Blood specimen (specimen) 09/21/2012 6:34 EST 09/21/2012 7:49 EST Amari Alonso MD CHEMISTRY & BLOOD GA S ORDERABLES Performing Organization Address [facility] Phone Number [facility] [address] [place] [address] * ELECTROLYTES (09/21/2012 6:34 EST) Sodium 140 136 - 145 mEq/L [facility] Potassium 3.9 3.5 - 5.0 mEq/L [facility] Chloride 105 96 - 110 mEq/L [facility] CO2 26 24 - 32 mEq/L [facility] Blood specimen (specimen) 09/21/2012 6:34 EST 09/21/2012 7:49 EST Amari Alonso MD CHEMISTRY & BLOOD GA S ORDERABLES Performing Organization Address [facility] Co de Phone Number [facility] [address] [place] [address] * HEMAGRAM (09/21/2012 6:34 EST) WBC 11.63 4.0 - 12.4 K/cmm [facility] RBC 4.35 3.86 - 5.04 M/cmm [facility] Hemoglobin 12.8 11.6 - 15.2 gm/dl [facility] HCT 37.8 34.9 - 44.4 % [facility] MCV 87 81 - 98 fl [facility] MCH 29.3 26.7 - 33.3 pg [facility] MCHC 33.8 32.1 - 35.9 gm/dl [facility] PLT 166 141 - 320 K/cmm [facility] RDW-CV 13.4 11.7 - 14.6 % [facility] Blood specimen (specimen) 09/21/2012 6:34 EST 09/21/2012 7:49 EST Amari Alonso MD HEMATOLOGY & PF4 ORD ERABLES Performing Organization Address [facility] Co de Phone Number [facility] [address] [place] [address] * MAGNESIUM (09/20/2012 19:44 EST) Magnesium 1.7 1.7 - 2.8 mg/dl [facility] Blood specimen (specimen) 09/20/2012 19:44 EST 09/20/2012 20:15 EST Amari Alonso MD CHEMISTRY & BLOOD GA S ORDERABLES Performing Organization Address [facility] de Phone Number [facility] [address] [place] [id number] * (ABNORMAL) BUN (09/20/2012 19:44 EST) BUN 6(L) 10 - 26 mg/dl [facility] Blood specimen (specimen) 09/20/2012 19:44 EST 09/20/2012 20:15 EST Amari Alonso MD CHEMISTRY & BLOOD GA S ORDERABLES Performing Organization Address [facility] Co de Phone Number [facility] [address] [place] [address] * (ABNORMAL) ELECTROLYTES (09/20/2012 19:44 EST) Sodium 134(L) 136 - 145 mEq/L [facility] Potassium 3.9 3.5 - 5.0 mEq/L [facility] Chloride 102 96 - 110 mEq/L [facility] CO2 23(L) 24 - 32 mEq/L [facility] Blood specimen (specimen) 09/20/2012 19:44 EST 09/20/2012 20:15 EST Amari Alonso MD CHEMISTRY & BLOOD GA S ORDERABLES Performing Organization Address [facility] Co de Phone Number [facility] [address] [place] [address] * HEMAGRAM (09/20/2012 19:44 EST) WBC 8.56 4.0 - 12.4 K/cmm [facility] RBC 4.37 3.86 - 5.04 M/cmm [facility] Hemoglobin 12.9 11.6 - 15.2 gm/dl [facility] HCT 38.0 34.9 - 44.4 % [facility] MCV 87 81 - 98 fl [facility] MCH 29.6 26.7 - 33.3 pg [facility] MCHC 34.0 32.1 - 35.9 gm/dl [facility] PLT 167 141 - 320 K/cmm [facility] RDW-CV 13.1 11.7 - 14.6 % [facility] Blood specimen (specimen) 09/20/2012 19:44 EST 09/20/2012 20:15 EST Amari Alonso MD HEMATOLOGY & PF4 ORD ERABLES Performing Organization Address [facility] Co de Phone Number [facility] [address] [place] [address] * SURGICAL PATHOLOGY (09/20/2012 10:18 EST) Pathology Report: SURGICAL PATHOLOGY REPORT Reports generated via electronic interface contain original data; however they are lacking the format of the original report. Caution should be taken when reading/interpreti ng unformatted reports. Name: ? HANNAH WONG S ? Accession #: ? [id number] ? : ? 1965 (Age: 47) ??F ? Collect Date: ? 09/20/2012 ? Location: ? B006 ? Receive Date: ? 09/20/2012 ? Provider: BEBETO MONTEIRO MD Copy to: AVERY CABALLERO MD ? Final Pathologic Diagnosis: ? Stomach, sleeve gastrectomy: 1. ??Oxyntic tissue with mild inactive chronic gastritis. 2. ??No intestinal metaplasia or dysplasia noted. 2. ??No for Helicobacter pylori microorganisms identified (H&E). Document reviewed and electronically signed by: BRUCE TAMAYO MD Report ??Date: 09/29/2012 12:06 By the signature above, the attending physician certifies that he/she has personally conducted a gross and/or microscopic examination of the described specimens and rendered or confirmed the above diagnosis. Specimen(s) Received: ? Partial gastrectomy Clinical History: ? Morbid obesity Gross Description: ? Received fresh labelled Sushil, Hannah and partial gastrectomy is a 19.0 cm in length unoriented portion of stomach that ranges from 3.0 to 5.5 cm in diameter. ??There is a staple line along one edge of the specimen. ??The serosa is pink-schilling and smooth. ??The mucosa is schilling-red, erythematous and has usual prominent fold. ??The wall thickness ranges from 0.2 to 0.4 cm. ??Organizational Development Director sections adjacent to the stapled margin are submitted in cassette (1) and additional random business banking representative sections are submitted in cassette (2). (Josee Dubois)/mpl End of Report [facility] 09/20/2012 10:1 8 EST 09/20/2012 10:18 EST Bebeto Monteiro MD PATHOLOGY OR DERABLES Performing Organization Address [facility] de Phone Number [facility] [address] [place] [address] * TYPE AND SCREEN (09/20/2012 6:16 EST) ABO O [facility] Rh Factor Positive [facility] Antibody Screen Negative [facility] Comment:SPECIMEN EXPIRES AT 23:59 ON 09/23/2012 Blood specimen (specimen) 09/20/2012 6:16 EST Leon ALLEN-Jonathan BLOOD BANK T ESTS Performing Organization Address [facility] de Phone Number [facility] [address] [place] [address] documented in this encounter Visit Diagnoses Diagnosis Morbid obesity ([facility]-CMS)- Primary Morbid obesity Morbid obesity (HCC-CMS) Morbid obesity Preop examination Preoperative examination, unspecified Asthma Unspecified asthma GERD (gastroesophageal reflux disease) Esophageal reflux GERD (gastroesophageal reflux disease) Esophageal reflux Preop examination Preoperative examination, unspecified documented in this encounter Administered Medications Inactive Administered Medications - up to 3 most recent administrations Medication Order MAR Action Action Date Dose Rate Site acetaminophen (TYLENOL) solution 650 mg 650 mg, oral, EVERY 4 HOURS, First dose on Sun09/22/12 at 0000, Until Discontinued, Routine, On Unit Given 09/21/2012 23:53 EST 650 mg ceFAZolin (ANCEF) 2 g in sodium chloride 0.9% 50 mL IVPB 2 g, intravenous, Administer over 30 Minutes, EVERY 8 HOURS, 2 doses, First dose on Sun09/20/12 at 1600, Last dose on 09/21/12 at 0000, Routine, On Unit Given 09/20/2012 23:45 EST 2 g Given 09/20/2012 16:59 EST 2 g ceFAZolin (ANCEF) syringe 2 g 2 g, intravenous, Administer over 10 Minutes, PRE-OP ONCE, 1 dose, On Sun09/20/12 at 0700, Routine, Pre Op Day of Surgery Given by Other 09/20/2012 7:55 EST 2 g dextrose 5 % and 0.45 % NaCl with KCl 20 mEq/L infusion 125 mL/hr, intravenous, CONTINUOUS, Starting on Sun09/20/12 at 1400, Until Sun09/22/12 at 0731, Routine, On Unit New Bag 09/22/2012 4:01 EST 125 mL/hr 125 mL/hr Rate Documented 09/22/2012 0:47 EST 125 mL/hr 125 mL/hr New Bag 09/21/2012 20:09 EST 125 mL/hr 125 mL/hr fluticasone (FLONASE) nasal spray 1 [place] 1 [place], nasal - both, 2 TIMES DAILY, First dose on Sun09/20/12 at 1200, Until Discontinued, Routine Given 09/22/2012 8:07 EST 1 [place] Given 09/21/2012 20:07 EST 1 [place] Given 09/21/2012 9:30 EST 1 [place] fluticasone-salmeterol (ADVAIR) 250-50 mcg/dose diskus inhaler 1 Puff 1 Puff, inhalation, 2 TIMES DAILY, First dose on Sun09/20/12 at 1200, Until Discontinued, Routine Given 09/22/2012 8:07 EST 1 Puff Given 09/21/2012 20:08 EST 1 Puff Given 09/21/2012 9:30 EST 1 Puff heparin injection 5,000 Units 5,000 Units, subcutaneous, PRE-OP ONCE, 1 dose, On Sun09/20/12 at 0700, Routine, Pre Op Day of Surgery Given 09/20/2012 7:08 EST 5,000 Units heparin injection 5,000 Units 5,000 Units, subcutaneous, EVERY 8 HOURS, First dose on Sun09/20/12 at 2100, Until Discontinued, Routine, On Unit Given 09/22/2012 8:07 EST 5,000 Units Given 09/21/2012 23:53 EST 5,000 Units Given 09/21/2012 15:36 EST 5,000 Units HYDROmorphone 1 mg/ml (DILAUDID) WOOD BLOCK ARTIST, 30 ml - LATEX SAFE intravenous, CONTINUOUS, Starting on Sun09/20/12 at 1200, Until Sun09/22/12 at 0731, Intravenous, WOOD BLOCK ARTIST, WOOD BLOCK ARTIST Dose: 0.2 mg LOCKOUT Interval: 10 minutes ONE HOUR Dose Limit: 1.2 mg See PRN bolus orders for breakthrough pain., Routine Rate Documented 09/21/2012 7:43 EST mL/hr New Syringe/Cartridge 09/20/2012 12:49 EST mL/h r ketOROLAC (TORADOL) injection 15 mg 15 mg, intravenous, EVERY 6 HOURS, 4 doses, First dose on 09/21/12 at 1330, Last dose on 09/22/12 at 0730, Routine Given 09/22/2012 6:54 EST 15 mg Given 09/22/2012 1:50 EST 15 mg Given 09/21/2012 19:02 EST 15 mg ketOROLAC (TORADOL) injection 30 mg 30 mg, intravenous, NOW X1, 1 dose, On 09/21/12 at 0730, Routine Given 09/21/2012 7:30 EST 30 mg lactated ringers (LR) infusion 25 mL/hr, intravenous, CONTINUOUS, Starting on Sun09/20/12 at 0700, Until Sun09/20/12 at 1437, Routine, Pre Op Day of Surgery New Bag 09/20/2012 6:30 EST 25 mL/hr 25 mL/hr lansoprazole (PREVACID SOLUTAB) disintegrating tablet 30 mg 30 mg, oral, DAILY, First dose on 09/22/12 at 0900, Until Discontinued, Routine, On Unit Given 09/22/2012 8:09 EST 30 mg magnesium sulfate 2,000 mg in dextrose 5% (D5W) 50 mL IVPB (Latex Free) 2,000 mg, intravenous, Administer over 30 Minutes, NOW X1, 1 dose, On 09/21/12 at 0915, Routine Given 09/21/2012 9:39 EST 2,000 mg metoCLOPramide (REGLAN) injection 10 mg 10 mg, intravenous, EVERY 6 HOURS, First dose on Sun09/20/12 at 1400, Until Discontinued, Routine, On Unit Given 09/22/2012 6:52 EST 10 mg Given 09/21/2012 23:53 EST 10 mg Given 09/21/2012 17:43 EST 10 mg ondansetron (PF) (ZOFRAN) 4 mg/2 mL injection 1 dose, Starting on 09/21/12 at 0749, Until 09/21/12 at 0751 ondansetron (PF) (ZOFRAN) injection 4 mg 4 mg, intravenous, EVERY 4 HOURS PRN, Starting on Sun09/20/12 at 1340, Until 09/22/12 at 1357, Nausea, Routine, On Unit Given 09/21/2012 4:56 EST 4 mg Given 09/21/2012 0:15 EST 4 mg Given 09/20/2012 20:33 EST 4 mg ondansetron (PF) (ZOFRAN) injection 4 mg 4 mg, intravenous, NOW X1, 1 dose, On 09/21/12 at 0815, STAT Given 09/21/2012 7:51 EST 4 mg pantoprazole (PROTONIX) injection 40 mg 40 mg, intravenous, DAILY, 1 dose, First dose on 09/21/12 at 0900, Routine, On Unit Given 09/21/2012 7:52 EST 40 mg promethazine (PHENERGAN) injection 25 mg 25 mg, intramuscular, EVERY 6 HOURS PRN, Starting on Sun09/20/12 at 1340, Until 09/22/12 at 1357, Nausea, Routine, On Unit Given 09/21/2012 6:39 EST 25 mg Given 09/21/2012 0:46 EST 25 mg sodium chloride 0.9 % flush 3 mL 3 mL, intravenous, EVERY 8 HOURS, First dose on 09/22/12 at 0800, Until Discontinued, Routine, On Unit Given 09/22/2012 8:09 EST 3 mL documented in this encounter Discontinued Medications Medication Sig Discontinue Reason Start Date End Da te pantoprazole (PROTONIX) 40 mg tablet Take 1 Tab by mouth daily. 11/02/2011 09/22/2012 documented as of this encounter Active and Recently Administered Medications Times are shown in EST. Scheduled Medication Order 09/20/2012 09/21/2012 09/22/2012 acetaminophen (TYLENOL) solution 650 mg 650 mg, oral, EVERY 4 HOURS, First dose on 09/22/12 at 0000, Until Discontinued, Routine, On Unit 0571 (Given - Provider: Jerica Auguste RN) 6074 (Not Given - Provider: Jerica Auguste RN - Reason: Patient/family refused)0383 (Not Given - Provider: Rickie Goode RN - Reason: Patient/family refused) ceFAZolin (ANCEF) 2 g in sodium chloride 0.9% 50 mL IVPB (COMPLETED) 2 g, intravenous, Administer over 30 Minutes, EVERY 8 HOURS, 2 doses, First dose on Sun09/20/12 at 1600, Last dose on Sun09/21/12 at 0000, Routine, On Unit 1659 (Given - Provider: Gladis Hess)2345 (Given - Provider: Caitlyn Gallardo) ceFAZolin (ANCEF) syringe 2 g (COMPLETED) 2 g, intravenous, Administer over 10 Minutes, PRE-OP ONCE, 1 dose, On Sun09/20/12 at 0700, Routine, Pre Op Day of Surgery 0755 (Given by Other - Provider: Pattie Oliveira - Comment: Given by Marce Wilson MD) fluticasone (FLONASE) nasal spray 1 [place] (CANCELED) 1 [place], nasal - both, 2 TIMES DAILY, First dose on Sun09/20/12 at 1200, Until Discontinued, Routine 1450 (Not Given - Provider: Ananth Engel RN - Reason: Patient/family refused - Comment: taken this a.m.)2005 (Not Given - Provider: Caitlyn Gallardo - Reason: Patient/family refused) 0930 (Given - Provider: Ananth Engel RN)2006 (Given - Provider: Maggy Almaraz, RAFAL) 0807 (Given - Provider: Rickie Goode, RAFAL) fluticasone-salmeterol (ADVAIR) 250-50 mcg/dose diskus inhaler 1 Puff (CANCELED) 1 Puff, inhalation, 2 TIMES DAILY, First dose on Sun09/20/12 at 1200, Until Discontinued, Routine 1450 (Not Given - Provider: Ananth Engel RN - Reason: Patient/family refused - Comment: taken this a.m.)2029 (Not Given - Provider: RT Carrie - Reason: Patient/family refused) 0930 (Given - Provider: Ananth Engel, RAFAL)2007 (Given - Provider: Maggy Almaraz, RN) 0807 (Given - Provider: Rickie Goode, RN) heparin injection 5,000 Units (COMPLETED) 5,000 Units, subcutaneous, PRE-OP ONCE, 1 dose, On Sun09/20/12 at 0700, Routine, Pre Op Day of Surgery 0708 (Given - Provider: Haritha Lucas RN) heparin injection 5,000 Units (CANCELED) 5,000 Units, subcutaneous, EVERY 8 HOURS, First dose on Sun09/20/12 at 2100, Until Discontinued, Routine, On Unit 2008 (Given - Provider: Caitlyn Gallardo) 0730 (Hold - Provider: Ananth Engel RN - Reason: Nausea/Vomiting)0742 (Given - Provider: Ananth Engel RN)1536 (Given - Provider: Maggy Almaraz, RN)2353 (Given - Provider: Jerica Auguste, RN) 0807 (Given - Provider: Rickie Goode RN) ketOROLAC (TORADOL) injection 15 mg (COMPLETED) 15 mg, intravenous, EVERY 6 HOURS, 4 doses, First dose on 09/21/12 at 1330, Last dose on 09/22/12 at 0730, Routine 1318 (Given - Provider: Ananth Engel RN)1902 (Given - Provider: Maggy Almaraz, RAFAL) 0150 (Given - Provider: Jerica Auguste, RAFAL)0654 (Given - Provider: Jerica Auguste, RAFAL) ketOROLAC (TORADOL) injection 30 mg (COMPLETED) 30 mg, intravenous, NOW X1, 1 dose, On 09/21/12 at 0730, Routine 0730 (Given - Provider: Ananth Engel RN) lansoprazole (PREVACID SOLUTAB) disintegrating tablet 30 mg (CANCELED) 30 mg, oral, DAILY, First dose on 09/22/12 at 0900, Until Discontinued, Routine, On Unit 0809 (Given - Provider: Rickie Goode RN) magnesium sulfate 2,000 mg in dextrose 5% (D5W) 50 mL IVPB (Latex Free) (COMPLETED) 2,000 mg, intravenous, Administer over 30 Minutes, NOW X1, 1 dose, On 09/21/12 at 0915, Routine 0939 (Given - Provider: Ananth Engel RN) metoCLOPramide (REGLAN) injection 10 mg (CANCELED) 10 mg, intravenous, EVERY 6 HOURS, First dose on Sun09/20/12 at 1400, Until Discontinued, Routine, On Unit 1446 (Given - Provider: Ananth Engel RN)1827 (Given - Provider: Daniela Mccall)2345 (Given - Provider: Caitlyn Gallardo) 0554 (Given - Provider: Caitlyn Gallardo)1134 (Given - Provider: Ananth Engel, RN)1743 (Given - Provider: Maggy Almaraz RN)2353 (Given - Provider: Jerica Auguste, RAFAL) 0652 (Given - Provider: Jerica Auguste RN) ondansetron (PF) (ZOFRAN) injection 4 mg (COMPLETED) 4 mg, intravenous, NOW X1, 1 dose, On 09/21/12 at 0815, STAT 0751 (Given - Provider: Ananth Engel RN) pantoprazole (PROTONIX) injection 40 mg (COMPLETED) 40 mg, intravenous, DAILY, 1 dose, First dose on 09/21/12 at 0900, Routine, On Unit 0752 (Given - Provider: Ananth Engel RN)1018 (Not Given - Provider: Ananth Engel RN - Reason: Other) sodium chloride 0.9 % flush 3 mL (CANCELED) 3 mL, intravenous, EVERY 8 HOURS, First dose on 09/22/12 at 0800, Until Discontinued, Routine, On Unit 0809 (Given - Provider: Rickie Goode RN) Continuous Medication Order 09/20/2012 09/21/2012 09/22/2012 dextrose 5 % and 0.45 % NaCl with KCl 20 mEq/L infusion (CANCELED) 125 mL/hr, intravenous, CONTINUOUS, Starting on Sun09/20/12 at 1400, Until 09/22/12 at 0731, Routine, On Unit 1410 (New Bag - Provider: Ananth Engel RN)2002 (Rate Documented - Provider: Caitlyn Gallardo)2143 (New Bag - Provider: Caitlyn Gallardo) 0459 (New Bag - Provider: Caitlyn Gallardo)0743 (Rate Documented - Provider: Ananth Engel RN)1536 (Rate Documented - Provider: Maggy Almaraz, RAFAL)2008 (New Bag - Provider: Maggy Almaraz RN) 0047 (Rate Documented - Provider: Jerica Auguste, RAFAL)0401 (New Bag - Provider: Jerica Auguste, RAFAL)0746 (Completed - Provider: Rickie Goode RN) HYDROmorphone 1 mg/ml (DILAUDID) WOOD BLOCK ARTIST, 30 ml - LATEX SAFE (CANCELED) intravenous, CONTINUOUS, Starting on Sun09/20/12 at 1200, Until 09/22/12 at 0731, Intravenous, WOOD BLOCK ARTIST, WOOD BLOCK ARTIST Dose: 0.2 mg LOCKOUT Interval: 10 minutes ONE HOUR Dose Limit: 1.2 mg See PRN bolus orders for breakthrough pain., Routine 1249 (New Syringe/Cartridge - Provider: Elliott Benoit RN) 0743 (Rate Documented - Provider: Ananth Engel, RN)1323 (Completed - Provider: Ananth Engel, RN) lactated ringers (LR) infusion (CANCELED) 25 mL/hr, intravenous, CONTINUOUS, Starting on Sun09/20/12 at 0700, Until 09/20/12 at 1437, Routine, Pre Op Day of Surgery 0630 (New Bag - Provider: Haritha Lucas RN) PRN Medication Order 09/20/2012 09/21/2012 09/22/2012 ondansetron (PF) (ZOFRAN) injection 4 mg (CANCELED) 4 mg, intravenous, EVERY 4 HOURS PRN, Starting on 09/20/12 at 1340, Until 09/22/12 at 1357, Nausea, Routine, On Unit 1549 (Given - Provider: Daniela Mccall - Comment: for nausea)2032 (Given - Provider: Caitlyn Gallardo) 0015 (Given - Provider: Caitlyn Gallardo)0456 (Given - Provider: Caitlyn Gallardo) ondansetron (ZOFRAN-ODT) disintegrating tablet 4 mg 4 mg, oral, EVERY 6 HOURS PRN, Starting on 09/22/12 at 0000, Until 09/22/12 at 1357, Nausea, Routine, On Unit oxycodone (ROXICODONE) solution 5-10 mg 5-10 mg, oral, EVERY 3 HOURS PRN, Starting on 09/22/12 at 0000, Until 09/22/12 at 1357, Pain, Routine, On Unit promethazine (PHENERGAN) injection 25 mg (CANCELED) 25 mg, intramuscular, EVERY 6 HOURS PRN, Starting on 09/20/12 at 1340, Until 09/22/12 at 1357, Nausea, Routine, On Unit 0046 (Given - Provider: Caitlyn Gallardo)0639 (Given - Provider: Caitlyn Gallardo) documented in this encounter Orders Medications Ordered That Glenn ht Not Have Been Administered Count Last Ordered Date First Ordered Date oxycodone (ROXICODONE) solution 5-10 mg 2 0 09/22/2012 09/20/2012 oxycodone (ROXICODONE) solution 5-15 mg 1 0 09/22/2012 acetaminophen (TYLENOL) suppository 650 mg 2 09/20/2012 albuterol (PROVENTIL, VENTOL IN) 90 mcg/actuation inhaler 1 Puff 1 09/20/2012 albuterol (VENTOLIN HFA) inhaler 1 Puff 1 0 09/20/2012 atropine 0.1 mg/mL 10 mL syringe 0.5 mg 1 0 09/20/2012 ceFAZolin (ANCEF) 2 g in sod ium chloride 0.9% 50 mL IVPB 1 09/20/2012 diphenhydrAMINE (BENADRYL) i njection 6.25 mg 1 09/20/2012 fentanyl citrate (PF) 50 mcg /mL injection 25-100 mcg 1 09/20/2012 hydrALAzine (APRESOLINE) 10 mg in sodium chloride (NS) 0.9 % 50 mL IVPB 1 09/20/2012 HYDROmorphone (PF) (DILAUDID ) 1 mg/mL injection 0.2-0.4 mg 1 09/20/2012 HYDROmorphone (PF) (DILAUDID ) 1 mg/mL injection 0.2-1 mg 1 09/20/2012 HYDROmorphone 1 mg/ml (DILAU DID) WOOD BLOCK ARTIST syringe, 30 ml 1 09/20/2012 HYDROmorphone 1 mg/ml (DILAU DID) WOOD BLOCK ARTIST, 30 ml - LATEX SAFE 1 09/20/2012 HYDROmorphone 1 mg/ml (DILAU DID) syringe, 30 ml - Alaris PRN 1 09/20/2012 lactated ringers (LR) infusion 1 09/20/2012 meperidine (PF) (DEMEROL) 25 mg/0.5 mL injection 25 mg 1 09/20/2012 metoCLOPramide (REGLAN) injection 10 mg 2 0 09/20/2012 morphine (PF) 2 mg/mL injection 1-5 mg 1 naloxone (NARCAN) injection 0.1-0.4 mg 1 naloxone (NARCAN) injection 0.2 mg 1 2012 ondansetron (PF) (ZOFRAN) injection 2 mg 1 09/20/2012 ondansetron (PF) (ZOFRAN) injection 4 mg 1 09/20/2012 ondansetron (ZOFRAN-ODT) dis integrating tablet 4 mg 2 09/20/2012 pantoprazole (PROTONIX) injection 40 mg 1 0 09/20/2012 promethazine (PHENERGAN) injection 25 mg 1 09/20/2012 Nursing Count Last Ordered Date First Orde red Date APPLY WARMING BLANKET 1 09/20/2012 INSERT CABRERA CATHETER 1 09/20/[address] SEQUENTIAL COMPRESSION DEVICE 1 09/20 IV Count Last Ordered Date First Orde red Date IV REQUEST 1 09/21/2012 Admission Count Last Ordered Date First Orde red Date STATUS: INPATIENT DOSA/DOPA DAY OF SURGERY/PROCEDURE ADMISSION 1 09/20/2012 Transfer Count Last Ordered Date First Orde red Date NOTIFY PPS OF DISCHARGE COMPLETE 1 09/22/19 13 NOTIFY PPS PATIENT ARRIVAL IN PACU 1 2012 NOTIFY PPS PATIENT TRANSFERRED OUT OF PACU 1 09/20/2012 PPS NOTIFICATION OF PATIENT ARRIVAL ON UNIT 1 09/20/2012 Discharge Count Last Ordered Date First Orde red Date DISCHARGE PATIENT 1 09/22/2012 documented in this encounter Care Teams Professor Of Business Relationship Specialty Start Date End Date Avery Caballero MD [address] [place] [address] PCP - General 12/20/10 documented as of this encounter
--- OUTSIDE RECORDS SUMMARY | 2024-04-08 18:10 | XMS_ITS | Encounter Summary ---
Author Organization [facility] Address [address] [place] [address] Care Team Providers Care Sales Account Specialist Name Role Phone Avery Caballero MD Primary Care Provider [phone] Reason for Visit * Reason Comments Obesity PO Sleeve 3 Month F/ U Encounter Details Date Type Department Care Team (Late st Contact Info) Description 12/12/2012 15:45 EDT Office Visit [facility] Bariatric Surgery [address] [address] Bebeto Culver MD [address] [place] [phone] S/P partial gastrectomy (Primary Dx) Discharge [...] Sign Reading Time Taken Comments Blood Pressure 118/82 12/12/2012 1537 EDT Pulse 58 12/12/2012 1537 EDT Temperature - - Respiratory Rate - - Oxygen Saturation - - Inhaled Oxygen Concentration - - Weight 78.2 kg (172 lb 6.4 oz) 12/12/2012 1537 E DT Height 149.7 cm (4' 10.94) 12/12/2012 1537 EDT Body Mass Index 34.9 12/12/2012 1537 EDT documented in this encounter Discharge Disposition Disposition Code Departure Means Destination Auto Discharge documented in this encounter Progress Notes * Charlotte Lima, RD - 12/12/2012 1600 EDT Nutrition Post Op Visit: Gastric Sleeve Subjective: Patient returns to clinic for post op nutritional counseling following bariatric surgery 3 months ago. Good portion control-eats protein first, still taking shakes to get 60-70 gr proteinper day Questionnaire Reviewed: Yes Intolerance Episodes: no Food Intolerances: None yet Current Exercise: Walking, exercise bike Objective: Current Weight: Wt Readings from Last 1 Encounters: 12/12/12 78.2 kg (172 lb 6.4 oz) Current BMI: Body mass index is Body mass index is 34.90 kg/(m^2).. Total Weight Loss: Total Loss in lbs (Weight from Initial Consult - Today's Weight): 78.6 lbs Weight Change since Last Visit:12 lb, since surgery lost 38.2 lb Supplement Usage: Type Amount MVT B12 B Complex B6 Vit D 2000 IU Recent Labs: WNL Assessment: Adequate Meal Frequency: Yes Adequate Meal Composition: Yes Exercise Adequacy: Yes Nutritional Issues: doing well with intake and weight. Advised slow addition of fruits and veggies after protein. Labs great! Plan: Continue current diet and exercise-add in fruits and veggies slowly Education Provided: Other-balanced intake * Bebeto Culver MD - 12/12/2012 1548 EDT 12/12/2012 Hannah Ling is here in follow-up to her laparoscopic sleeve gastrectomy. The weight trend for the patient is: Weight at initial consult: 113.853 kg (251 lb), to 83.643 kg (184 lb 6.4 oz) [10/31/2012] at the last post-op visit to today's Weight : 78.2 kg (172 lb 6.4 oz). PROBLEM LIST Patient Active [...] clubbing, cyanosis or edema Skin: Normal ASSESSMENT: Expected course without obvious complications PLAN: 1. Return to clinic in 3 month(s). 2. No orders of the defined types were placed in this encounter. 3. Office Adjustment Not Indicated Labs discussed Seen and discussed with Office Copy Selector at this visit. Bebeto Culver MD 12/12/2012 15:48 * Dayanara Reyez - 12/12/2012 1542 EDT 30-Day Plus Bariatric Surgery Postop Questionnaire [...] suspected reason for admission) No Dayanara Reyez 12/12/2012 15:42 documented in this encounter Miscellaneous Notes * Scanned Note-Null - CONTINUOUS PROCESS TANNER ROTARY DRUM, SCAN 2 - 12/30/2012 1005 EDT documented in this encounter Plan of Treatment Not on file documented as of this encounter Visit Diagnoses Diagnosis S/P partial gastrectomy- Primary Other postprocedural status documented in this encounter Care Teams Sales Account Specialist Relationship Specialty Start Date End Date Avery Caballero MD [address] [place] [address] PCP - General 12/20/10 documented as of this encounter
--- OUTSIDE RECORDS SUMMARY | 2024-04-08 18:10 | XMS_ITS | Encounter Summary ---
Author Organization [facility] Address [address] [place] [address] Care Team Providers Care Inventory Control Assistant Name Role Phone Avery Caballero MD Primary Care Provider [phone] Reason for Visit * Reason Comments Obesity Pre op - F/U EGD/ESO Encounter Details Date Type Department Care Team (Late st Contact Info) Description 11/02/2011 14:45 EST Office Visit [facility] Bariatric Surgery [address] [phone] Bebeto Culver MD [address] [place] [phone] Morbid obesity ([facility]) (Primary Dx) Discharge Disposition: Auto Discharge Social [...] Reading Time Taken Comments Blood Pressure 120/70 11/02/2011 1509 EST Pulse 80 11/02/2011 1509 EST Temperature - - Respiratory Rate - - Oxygen Saturation - - Inhaled Oxygen Concentration - - Weight 108.7 kg (239 lb 9.6 oz) 11/02/2011 1509 EST Height 149.7 cm (4' 10.94) 11/02/2011 1509 EST Body Mass Index 48.5 11/02/2011 1509 EST documented in this encounter Ordered Prescriptions Prescription Sig Dispensed Refills Start Date End Da te pantoprazole (PROTONIX) 40 mg tablet Take 1 Tab by mouth daily. 30 Tab 12 11/02/2011 09/22/2012 documented in this encounter Discharge Disposition Disposition Code Departure Means Destination Auto Discharge documented in this encounter Progress Notes * Charlotte Lima RD - 11/02/2011 1535 EST Medical Nutrition Evaluation-PRE OP NOTE Bariatric Clinic Nutrition Pre-op Visit Visit Number: 2 Desired surgery: Sleeve Subjective: Has not had a hard time with weight loss this time! Not hungry, cooking meals he has found on [employer]. Food logs: by hand Meal pattern: 3 Average caloric intake:<5310-0489 janay Meal composition: fairly well balanced, some days low on fruits Snacking: Exercise: treadmill at work up to 40 min Objective: Weight: 239.6 lb Weight loss from last visit: -11.4 lb Total weight loss: Weight loss goal: Total Loss in lbs (Weight from Initial Consult - Today's Weight): 11.4 lbs Approximately 12 lb Surgery Date: Significant Medications and Supplements: multivitamin Assessment: Patient has made progress towards lifestyle changes Comments: great weight loss with overall good intake and exercise. Advised patient not to go below 1000 janay and to get 2 servings of fruit per day Plan: Diet Goals: Keep food records, Eat more slowly, Add 2 servings of fruit each day and Calorie goal [id number] Exercise Goals: Maintain current exercise Weight Loss Goal: Approximately 12 lb Weight Loss Remaining to Goal: Approximately 0.6 lb Reviewed: Food/Activity Record Next Visit: Pre-op follow-up visit documented in this encounter Plan of Treatment Not on file documented as of this encounter Visit Diagnoses Diagnosis Morbid obesity ([facility])- Primary Morbid obesity documented in this encounter Care Teams Inventory Control Assistant Relationship Specialty Start Date End Date Avery Caballero MD [address] [place] [address] PCP - General 12/20/10 documented as of this encounter
--- OUTSIDE RECORDS SUMMARY | 2024-04-08 18:10 | XMS_ITS | Encounter Summary ---
Author Organization [facility] Address [address] [place] [address] Care Team Providers Care Flower Cutter Name Role Phone Avery Caballero MD Primary Care Provider [phone] Reason for Visit * Reason Comments Obesity Class Encounter Details Date Type Department Care Team (Late st Contact Info) Description 01/31/2012 8:30 EDT Nutrition [facility] Bariatric Surgery - [place] [address] [place] [address] Morbid obesity ([facility]); Asthma; GERD (gastroesophageal reflux disease) Social History [...] - Inhaled Oxygen Concentration - - Weight 94.5 kg (208 lb 6.4 oz) 01/31/2012 0821 E DT Height 149.7 cm (4' 10.94) 01/31/2012 0821 EDT Body Mass Index 42.18 01/31/2012 0821 EDT documented in this encounter Progress Notes * Charlotte Lima RD - 01/31/2012 1142 EDT Bariatric Clinic Nutrition Class - Post Operative Diet Visit #: 4 Weight : 94.53 kg (208 lb 6.4 oz),Weight at initial consult: 113.853 kg (251 lb) Change in Weight: -18.4 lb since last visit, lost 42.6 lb overall Goal Weight: 12 lb Desired Surgery:Gastric Sleeve Patient attended class on The post operative diet after bariatric surgery. Topics discussed: Diet while in hospital, Diet Progression (Liquids, Blended, Soft Solids, Solids), Portion Control, Importance of Excercise, Importance of Food Diary and Recommended Protein Supplements Education was provided via slides, verbal instruction, samples, and written materials. Homework assignment(s) explained to patient and patient instructed to return them at the next visit. Patient completed post class Quiz with a score of 100%. Met weight loss goal! The Post op Nutrition Class is 120 min in length. documented in this encounter Plan of Treatment Not on file documented as of this encounter Visit Diagnoses Diagnosis Morbid obesity ([facility]) Morbid obesity Asthma Unspecified asthma GERD (gastroesophageal reflux disease) Esophageal reflux documented in this encounter Care Teams Flower Cutter Relationship Specialty Start Date End Date Avery Caballero MD [address] [place] [id number] PCP - General 12/20/10 documented as of this encounter
--- OUTSIDE RECORDS SUMMARY | 2024-04-08 18:10 | XMS_ITS | Encounter Summary ---
Author Organization [facility] Address [address] [place] [address] Care Team Providers Care Furnace Loader Name Role Phone Avery Caballero MD Primary Care Provider [phone] Reason for Visit * Reason Comments Obesity H Encounter Details Date Type Department Care Team (Late st Contact Info) Description 09/12/2012 15:30 EST Office Visit [facility] Bariatric Surgery - [address] [phone] Bebeto Culver MD [address] [place] [phone] Morbid obesity ([facility]) (Primary Dx) Social History [...] Sign Reading Time Taken Comments Blood Pressure 124/84 09/12/2012 1536 EST Pulse 72 09/12/2012 1536 EST Temperature - - Respiratory Rate - - Oxygen Saturation - - Inhaled Oxygen Concentration - - Weight 95.5 kg (210 lb 9.6 oz) 09/12/[address] Height 149.7 cm (4' 10.94) 09/12/2012 1536 EST Body Mass Index 42.63 09/12/2012 1536 EST documented in this encounter Progress Notes * Bebeto Culver MD - 09/12/2012 1617 EST Today she comes in with her . Consented for a laparoscopic sleeve gastrectomy. Risks, benefits, potential complications were explained to the patient. The patient at [facility] had an episode of syncope. She had taken a meclizine and then became unresponsive, was seen at an outside hospital, ruled out. No ischemic changes on EKG. Has since seen a neurologist. Is scheduled for an EEG. They think that this is most likely vertigo; however, she has never had an echo done and she has also never had carotid Dopplers and she has never had a Holter monitor. She is scheduled for her carotid Dopplers to be done before our sleeve gastrectomy. I would like her to see a preschool lead teacher for probable echo and Holter monitor to assure me that this is not an arrhythmia responsible and these are not presyncopal or syncopal events being diagnosed as vertigo. * Charlotte Lima RD - 09/12/2012 1546 EST Medical Nutrition Evaluation-PRE OP NOTE Bariatric Clinic Nutrition Pre-op Visit Visit Number: 12 Desired surgery: Gastric Sleeve Subjective: Ready for her full liquids starting tomorrow. Will be using Atkins shake, yogurt etc. Still needs to find unflavored whey protein powder for post op use Objective: Weight: 210.6 lb Weight loss from last visit: +2.6 lb Total weight loss: Weight loss goal: Total Loss in lbs (Weight from Initial Consult - Today's Weight): 40.4 lbs Approximately 12 lb Surgery Date: 09/23/12 Significant Medications and Supplements: Vit D, B12, multivitamin Assessment: Patient ready for pre op diet. Gave her suggestions for places to purchase unflavored whey. Reviewed orally her post op diet-handout given to her at her last visit. Plan: Diet Goals: Keep food records, Eat more slowly and Pre-op liquid diet start date 09/13/12 Exercise Goals: Maintain current exercise Weight Loss Goal: Approximately 12 lb Weight Loss Remaining to Goal: Approximately met Reviewed: Post Operative Diet Next Visit: Post-up follow up visit documented in this encounter Plan of Treatment Not on file documented as of this encounter Visit Diagnoses Diagnosis Morbid obesity ([facility])- Primary Morbid obesity documented in this encounter Care Teams Furnace Loader Relationship Specialty Start Date End Date Avery Caballero MD [address] [place] [address] PCP - General 12/20/10 documented as of this encounter
--- OUTSIDE RECORDS SUMMARY | 2024-04-08 18:10 | XMS_ITS | Encounter Summary ---
Author Organization [facility] Address [address] [place] [address] Care Team Providers Care Collateral Analyst Name Role Phone Avery Caballero MD Primary Care Provider [phone] Encounter Details Date Type Department Care Team ([facility] st Contact Info) Description 10/30/2011 Documentation Visit [facility] Bariatric Surgery [place] [address] [place], [place] [phone] Jacinda Young S, CONSTRUCTION EQUIPMENT MECHANIC [address] [facility] [address] [phone] Social History Tobacco Use Types Packs/Day Years [...] on filedocumented in this encounter Care Teams Collateral Analyst Relationship Specialty Start Date End Date Avery Caballero MD [address] [place] [id number] PCP - General 12/20/10 documented as of this encounter
--- OUTSIDE RECORDS SUMMARY | 2024-04-08 18:10 | XMS_ITS | Encounter Summary ---
Author Organization [facility] Address [address] [place] [address] Care Team Providers Care Filtration Plant Operator Name Role Phone Avery Caballero MD Primary Care Provider Encounter Details Date Type Department Care Team (Latest Contact Info) Description 10/17/2011 9:00 EST - 10/17/2011 23:59 [facility] Hospital Encounter [facility] [place] [address] [place], [place] [phone] [place], [facility] Room Discharge Disposition: Home or Self Care Social [...] fluticasone (FLONASE) 50 mcg/actuation nasal spray 1 [place] by Nasal route 2 times daily. fluticasone-salmeterol (ADVAIR DISKUS) 250-50 mcg/dose diskus inhaler Inhale 1 Puff as directed 2 times daily. montelukast (SINGULAIR) 10 mg tablet Take 10 mg by mouth at bedtime. Multivitamins with Minerals Tab Take 1 Tab by mouth daily. pantoprazole (PROTONIX) 40 mg tablet Take 1 Tab by mouth daily. 30 Tab 0 10/17/2011 12/12/2011 documented as of this encounter Discharge Disposition Disposition Code Departure Means Destination Home or Self Longterm documented in this encounter Plan of Treatment Not on file documented as of this encounter Visit Diagnoses Not on filedocumented in this encounter Care Teams Filtration Plant Operator Relationship Specialty Start Date End Date Avery Caballero MD [address] [place] [phone] PCP - General 12/20/10 documented as of this encounter
--- OUTSIDE RECORDS SUMMARY | 2024-04-08 18:10 | XMS_ITS | Encounter Summary ---
Author Organization [facility] Address [address] [place] [address] Care Team Providers Care Apparel Rental Clerk Name Role Phone Avery Caballero MD Primary Care Provider [phone] Encounter Details Date Type Department Care Team (Latest Contact Info) Description 10/17/2011 7:54 EST - 10/17/2011 10:39 EST Hospital Encounter [facility] Endoscopy Outpatient [address], [place] [address] Bebeto Culver MD [address] [place] [phone] Discharge Disposition: Home or Self Care [...] Sign Reading Time Taken Comments Blood Pressure 112/69 10/17/2011 1016 EST Pulse - - Temperature 36.6 ??C (97.9 ??F) 10/17/2011 1036 EST Respiratory Rate 18 10/17/2011 1016 EST Oxygen Saturation 100% 10/17/2011 1016 EST Inhaled Oxygen Concentration - - Weight 111.1 kg (245 lb) 10/17/2011 0827 EST Height 148.6 cm (4' 10.5) 10/17/2011 0827 EST Body Mass Index 50.33 10/17/2011 0827 EST documented in this encounter Medications at Time of Discharge Medication Sig Dispensed Refills Start Date End Date ALBUTEROL INHL Inhale 1 Puff as directed as needed. fluticasone (FLONASE) 50 mcg/actuation nasal spray 1 [place] by Nasal route 2 times daily. fluticasone-salmeterol [...] 10/17/2011 12/12/2011 documented as of this encounter Ordered Prescriptions Prescription Sig Dispensed Refills Start Date End Da te pantoprazole (PROTONIX) 40 mg tablet Take 1 Tab by mouth daily. 30 Tab 0 10/17/2011 12/12/2011 documented in this encounter Discharge Disposition Disposition Code Departure Means Destination Home or Self Care documented in this encounter H&P Notes * Bebeto Culver MD - 10/17/2011 0919 EST Sedation for Procedure History & Physical Date: 10/17/2011 Time: 9:19 Location: [address] Planned Procedure: Gastroscopy Chief Complaint/Indications for Procedure: surgery consideration History Previous Complication with Sedation and/or Anesthesia? No Allergies: Allergies Allergen Reactions ??? Latex, Natural Rubber Hives and Swelling Current Medications: (Not in a hospital admission) Past Medical History: No past medical history on file. Social History: Past Surgical History Procedure Date ??? Hysterectomy ??? Appendectomy History Substance Use Topics ??? Smoking status: Never Smoker ??? Smokeless tobacco: Not on file ??? Alcohol Use: No Family History: No family history on file. Review of Systems as pertinent: Physical Exam Vital Signs: BP 114/88 Temp(Src) 36.5 ??C (97.7 ??F) (Tympanic) Resp 18 Ht 148.6 cm (58.5) Wt 111.131 kg (245 lb) BMI 50.33 kg/m2 SpO2 98% Heart Examination: Cardiac Regularity: Regular Respiratory Examination: Respiratory Pattern: Regular Breath Sounds Right: Clear Breath Sounds Left: Clear Additional physical exam related to the proposed procedure, patient activity, disease state and treatment as pertinent: Assessment Previous complications with sedation or anesthesia?: No Airway Concerns: Asthma Anesthesia Classification: ASA 2 Fasting Time: Time of last liquid intake: 2029 Date of Last Liquid Intake: 10/16/11 Time of last solid intake: 2029 Date of last solid intake: 10/16/11 Patient Appropriate Candidate for Planned Sedation?: Yes documented in this encounter Procedure Notes * Child Care, Scan - 10/18/2011 0801 ESTAssociated Order(s): PROCEDURE REPORTS - SCANNED documented in this encounter Miscellaneous Notes * Scanned Note-Null - Child Care, Scan - 10/18/2011 0844 EST * Scanned Note-Null - Child Care, Scan - 10/18/2011 0844 EST documented in this encounter Plan of Treatment Not on file documented as of this encounter Procedures Procedure Name Priority Date/Time Associated Diagnosis Comments PROCEDURE REPORTS - SCANNED 10/18/2011 8:01 EST documented in this encounter Results * PROCEDURE REPORTS - SCANNED (10/18/2011 8:01 EST) 10/18/2011 8:01 EST Narrative Transcriptions Child Care, Scan - 10/18/2011 8:01 EST Scan Child Care PROCEDURE/MINOR SURG ICAL ORDERABLES documented in this encounter Visit Diagnoses Not on filedocumented in this encounter Administered Medications Inactive Administered Medications - up to 3 most recent administrations Medication Order MAR Action Action Date Dose Rate Site fentanyl citrate (PF) 50 mcg/mL injection 100-150 mcg 100-150 mcg, intravenous, ONCE PRN, 1 dose, Starting on Tu10/17/11 at 0950, Until Tu10/17/11 at 0950, Other, sedation, Routine, Intraprocedure Given 10/17/2011 9:50 EST 100 mcg midazolam (VERSED) injection 1-3 mg 1-3 mg, intravenous, ONCE PRN, 1 dose, Starting on Sun10/17/11 at 0950, Until Sun10/17/11 at 0951, Sedation, Routine, Intraprocedure Given 10/17/2011 9:51 EST 2 mg sodium chloride 0.9 % (NS) infusion at 100 mL/hr, intravenous, CONTINUOUS, Starting on Sun10/17/11 at 0915, Until Sun10/17/11 at 1301, Routine New Bag 10/17/2011 8:46 EST 100 mL/hr documented in this encounter Historical Medications * This list may reflect changes made after this encounter. Medication Sig Dispensed Refills Start Date End Date Multivitamins with Minerals Tab Take 1 Tab by mouth daily. added in this encounter Orders Medications Ordered That Glenn ht Not Have Been Administered Count Last Ordered Date First Ordered Date sodium chloride 0.9 % (NS) infusion 1 10/17 Admission Count Last Ordered Date First Orde red Date NOTIFY PPS OF DISCHARGE COMPLETE 1 10/17/19 12 Discharge Count Last Ordered Date First Orde red Date DISCHARGE PATIENT 2 10/17/2011 documented in this encounter Care Teams Apparel Rental Clerk Relationship Specialty Start Date End Date Avery Caballero MD [address] [place] [address] PCP - General 12/20/10 documented as of this encounter
--- OUTSIDE RECORDS SUMMARY | 2024-04-08 18:10 | XMS_ITS | Encounter Summary ---
Author Organization [facility] Address [address] [place] [address] Care Team Providers Care Test Deck Supervisor Name Role Phone Avery Caballero MD Primary Care Provider [phone] Reason for Visit * Reason Comments Obesity Pre-op monthly visit Encounter Details Date Type Department Care Team (Late st Contact Info) Description 06/27/2012 11:15 EDT Office Visit [facility] Bariatric Surgery [address] [phone] Bebeto Culver MD [address] [place] [phone] Morbid obesity (HCC-CMS) (Primary Dx) Social [...] Sign Reading Time Taken Comments Blood Pressure 114/70 06/27/2012 1113 EDT Pulse 72 06/27/2012 1113 EDT Temperature - - Respiratory Rate - - Oxygen Saturation - - Inhaled Oxygen Concentration - - Weight 92.8 kg (204 lb 9.6 oz) 06/27/2012 1113 E DT Height 149.7 cm (4' 10.94) 06/27/2012 1113 EDT Body Mass Index 41.41 06/27/2012 1113 EDT documented in this encounter Progress Notes * [address] - 06/27/2012 1143 EDT Medical Nutrition Evaluation-PRE OP NOTE Bariatric Clinic Nutrition Pre-op Visit Visit Number: #9 Desired surgery: Gastric Sleeve Subjective: I increased my kcals to 1,200/day and I'm unhappy with the result. I know 3 lbs doesn't seem like a lot to some people, but it's scary for me. This has happened to me in the past, I get down to 200-205 lbs and then I can't lose anymore. I am going to the gym now and really enjoying that. Food logs: [email or web address] Meal pattern: 3 meals Average caloric intake: ~1,100/day Meal composition: good protein at every meal, minimal fruit Snacking: cheese/crackers Exercise: s/p PT for knee surgery this Summer, now back at the gym working with personal carer 3x/week Objective: Weight: 204.6lbs Weight loss from last visit: Gained, +3.2 lbs Total weight loss: Weight loss goal: Total Loss in lbs (Weight from Initial Consult - Today's Weight): 46.4 lbs Approximately 12 lbs Surgery Date: 09/23/12 Significant Medications and Supplements: MVT, VitD, VitB12 Assessment: Patient has made progress towards lifestyle changes and met weight loss requirement for surgery. Suspect mild weight gain d/t lean muscle mass as recently back to the gym following sedentary period t/o the summer while recovering from knee surgery. Recommended daily kcal goal of 1,000-1,100/day and continue regular exercise. Recommended adding 2 servings of fruit to daily diet. Plan: Diet Goals: Include protein at least 3 times a day, Keep food records, Add 2 servings of fruit eachday and Calorie goal 1,000-1,100/day (no less than 1,000kcal). Exercise Goals: Maintain current exercise Weight Loss Goal: Approximately 12 lbs Weight Loss Remaining to Goal: Approximately has met Reviewed: Food/Activity Record Next Visit: Pre-op follow-up visit documented in this encounter Plan of Treatment Not on file documented as of this encounter Visit Diagnoses Diagnosis Morbid obesity ([facility])- Primary Morbid obesity documented in this encounter Care Teams Test Deck Supervisor Relationship Specialty Start Date End Date Avery Caballero MD [address] [place] [address] PCP - General 12/20/10 documented as of this encounter
--- OUTSIDE RECORDS SUMMARY | 2024-04-08 18:10 | XMS_ITS | Encounter Summary ---
Author Organization [facility] Address [address] [place] [address] Care Team Providers Care Donor Recruiter Name Role Phone Avery Caballero MD Primary Care Provider [phone] Reason for Referral * (Routine/Next Available) - Closed Specialty Diagnoses / Procedures Referred By Kiarra t Referred To Contact Diagnoses Morbid obesity (HCC-CMS) S/P partial gastrectomy Post-resection malabsorption Procedures VITAMIN D (25,OH) Leon Georges PA-C [address] [place] [phone] Referral ID Status Reason Start Date Expiration Date Visits Re quested Visits Authorized [id number] Closed 03/06/2014 1 1 * (Routine/Next Available) - Closed Specialty Diagnoses / Procedures Referred By Contshirlene t Referred To Contact Diagnoses Morbid obesity (HCC-CMS) S/P partial gastrectomy Post-resection malabsorption Procedures THIAMIN (VITAMIN B1), WB Leon Georges PA-C [address] [place] [phone] Referral ID Status Reason Start Date Expiration Date Visits Re quested Visits Authorized [id number] Closed 03/06/2014 1 1 * (Routine/Next Available) - Closed Specialty Diagnoses / Procedures Referred By Contac t Referred To Contact Diagnoses Morbid obesity (HCC-CMS) S/P partial gastrectomy Post-resection malabsorption Procedures PTH INTACT Leon Georges PA-C [address] [place] [phone] Referral ID Status Reason Start Date Expiration Date Visits Re quested Visits Authorized [id number] Closed 03/06/2014 1 1 * (Routine/Next Available) - Closed Specialty Diagnoses / Procedures Referred By Kiarra banuelos Referred To Contact Diagnoses Morbid obesity (HCC-CMS) S/P partial gastrectomy Post-resection malabsorption Procedures IRON Leon Georges PA-C [address] [place] [phone] Referral ID Status Reason Start Date Expiration Date Visits Re quested Visits Authorized [id number] Closed 03/06/2014 1 1 * (Routine/Next Available) - Closed Specialty Diagnoses / Procedures Referred By Kiarra banuelos Referred To Contact Diagnoses Morbid obesity (HCC-CMS) S/P partial gastrectomy Post-resection malabsorption Procedures FERRITIN Leon Georges PA-C [address] [place] [phone] Referral ID Status Reason Start Date Expiration Date Visits Re quested Visits Authorized [id number] Closed 03/06/2014 1 1 * (Routine/Next Available) - Closed Specialty Diagnoses / Procedures Referred By Kiarra banuelos Referred To Contact Diagnoses Morbid obesity (HCC-CMS) S/P partial gastrectomy Post-resection malabsorption Procedures CREATININE Leon Georges PA-C [address] [place] [phone] Referral ID Status Reason Start Date Expiration Date Visits Re quested Visits Authorized [id number] Closed 03/06/2014 1 1 * (Routine/Next Available) - Closed Specialty Diagnoses / Procedures Referred By Contac t Referred To Contact Diagnoses Morbid obesity (HCC-CMS) S/P partial gastrectomy Post-resection malabsorption Procedures HEMAGRAM Leon Georges PA-C [address] [place] [phone] Referral ID Status Reason Start Date Expiration Date Visits Re quested Visits Authorized [id number] Closed 03/06/2014 1 1 * (Routine/Next Available) - Closed Specialty Diagnoses / Procedures Referred By Contac t Referred To Contact Diagnoses Morbid obesity (HCC-CMS) S/P partial gastrectomy Post-resection malabsorption Procedures CALCIUM Leon Georges PA-C [address] [place], [place] [phone] Referral ID Status Reason Start Date Expiration Date Visits Re quested Visits Authorized [id number] Closed 03/06/2014 1 1 * (Routine/Next Available) - Closed Specialty Diagnoses / Procedures Referred By Contac t Referred To Contact Diagnoses Morbid obesity (HCC-CMS) S/P partial gastrectomy Post-resection malabsorption Procedures VITAMIN B12 Leon Georges PA-C [address] [place] [phone] Referral ID Status Reason Start Date Expiration Date Visits Re quested Visits Authorized [id number] Closed 03/06/2014 1 1 Reason for Visit * Reason Comments Obesity Post Op Sleeve 1 yecassandra r 09/20/2012 Encounter Details Date Type Department Care Team (Late st Contact Info) Description 09/17/2013 16:00 EST Office Visit [facility] Bariatric Surgery [facility] [place] [place] [address] Leon Georges, PA-C [address] [place] [address] [address] [place] [phone] Morbid obesity ([facility]) (Primary Dx); S/P partial gastrectomy; Post-resection malabsorption [...] Sign Reading Time Taken Comments Blood Pressure 122/78 09/17/2013 1602 EST Pulse 66 09/17/2013 1602 EST Temperature - - Respiratory Rate - - Oxygen Saturation - - Inhaled Oxygen Concentration - - Weight 74.5 kg (164 lb 3.2 oz) 09/17/[address] Height 149.7 cm (4' 10.94) 09/17/2013 1602 EST Body Mass Index 33.24 09/17/2013 1602 EST documented in this encounter Discharge Diagnoses Diagnosis 278.01 MORBID OBESITY[ICD-9-CM] V45.89 POSTSURGICAL STATES NEC[ICD-9-CM] 579.3 INTEST POSTOP NONABSORB[ICD-9-CM] documented in this encounter Discharge Disposition Disposition Code Departure Means Destination Auto Discharge documented in this encounter Progress Notes * Charlotte Lima, RD - 09/17/2013 1638 EST Nutrition Post Op Visit: Gastric Sleeve Subjective: Patient returns to clinic for post op nutritional counseling following bariatric surgery 1 year ago. Doing well but hasn't lost weight recently-increased her workouts but eating only 700 janay per day still. regurg with pork or rice or if eat too fast Questionnaire Reviewed: Yes Intolerance Episodes: yes rarely as above Food Intolerances: pork, rice Current Exercise: Gym, training for 5 k Objective: Current Weight: Wt Readings from Last 1 Encounters: 09/17/13 74.481 kg (164 lb 3.2 oz) Current BMI: Body mass index is Body mass index is 33.24 kg/(m^2).. Total Weight Loss: Total Loss in lbs (Weight from Initial Consult - Today's Weight): 86.8 lbs Weight Change since Last Visit:+5.2 lb, since surgery lost 46.6 lb Supplement Usage: Type Amount MVT B12 Vit D Thinks it's either 1000 or 2000 units Other: B6 Recent Labs: WNL except for D at 26.7 Assessment: Adequate Meal Frequency: Yes Adequate Meal Composition: No: not enough calories Exercise Adequacy: Yes Nutritional Issues: weight regain despite increased exercise. advised her to add a protein snack after work, before the gym to add calories and help her to slow down eating her dinner. PA reviewed her Vit D dosing. Encouraged 1000 janay per day Plan: Continue current exercise Change intake-add afternoon snack, increase calories to 1000 per day Supplement Changes-check label of Vit D at home and increase dose per PA Education Provided: Other -as above * Leon Georges PA - 09/17/2013 1809 EST 09/17/2013 Hannah Ling is here in follow-up to her laparoscopic sleeve gastrectomy. The weight trend for the patient is: Weight at initial consult: 113.853 kg (251 lb), to 72.122 kg (159 lb) [06/12/2013] at the last post-op visit to today's Weight : 74.481 kg (164 lb 3.2 oz). PROBLEM LIST Patient Active Problem List Diagnosis ??? Morbid obesity ??? Asthma ??? Hiatal hernia ??? Gastroesophageal reflux disease ??? Gastroesophageal reflux disease ??? Status post partial gastrectomy SUBJECTIVE: Emesis: No complaints of [...] Good. Labs reviewed - all look good except vit d slightly low PLAN: 1. Return to clinic in 6 month(s). 2. Orders Placed This Encounter Procedures ??? Vitamin B12 Standing Status: Future Number of Occurrences: Standing Expiration Date: 09/17/2014 ??? Calcium Standing Status: Future Number of Occurrences: Standing Expiration Date: 09/17/2014 ??? Hemagram Standing Status: Future Number of Occurrences: Standing Expiration Date: 09/17/2014 ??? Creatinine Standing Status: Future Number of Occurrences: Standing Expiration Date: 09/17/2014 ??? Ferritin Standing Status: Future Number of Occurrences: Standing Expiration Date: 09/17/2014 ??? Iron Standing Status: Future Number of Occurrences: Standing Expiration Date: 09/17/2014 ??? PTH Intact Standing Status: Future Number of Occurrences: Standing Expiration Date: 09/17/2014 ??? Thiamin (Vit B1), WB Standing Status: Future Number of Occurrences: Standing Expiration Date: 09/17/2014 ??? Vitamin D (25,OH) Standing Status: Future Number of Occurrences: Standing Expiration Date: 09/17/2014 3. Increase vit D by 1000 units per day 4. Labs before next visit Seen and discussed with Cold Storage Superintendent at this visit. TIFFANY Powell 09/17/2013 16:09 * Dayanara You - 09/17/2013 1606 EST 30-Day Plus Bariatric Surgery Postop Questionnaire [...] discharge and suspected reason for admission) Serina Reyez 09/17/2013 16:06 documented in this encounter Plan of Treatment Not on file documented as of this encounter Results * VITAMIN D (25,OH) (03/24/2014) 25OH Vitamin D Tot, External 35.1 [facility] Blood specimen (specimen) 03/24/2014 Leon Ruizer-Cressy PA-C CHEMISTRY & BLOOD GAS ORDERABLES [facility] * THIAMIN (VITAMIN B1), WB (03/24/2014) Thiamine, External 126 [facility] Comment, External [facility] Blood specimen (specimen) 03/24/2014 Leon Ruizer-Cressy PA-C CHEMISTRY & BLOOD GAS ORDERABLES [facility] * PTH INTACT (03/24/2014) PTH, External 48 [facility] Blood specimen (specimen) 03/24/2014 Leon Ruizer-Cressy PA-C CHEMISTRY & BLOOD GAS ORDERABLES [facility] * IRON (03/24/2014) Iron, External 110 [facility] Blood specimen (specimen) 03/24/2014 Leon Burrelltter-Cressy PA-C CHEMISTRY & BLOOD GAS ORDERABLES [facility] * FERRITIN (03/24/2014) Ferritin, External 31 [facility] Blood specimen (specimen) 03/24/2014 Leon Lewis-Gaspersy PA-C CHEMISTRY & BLOOD GAS ORDERABLES Performing Organization Address City/[facility]/ZIP Co de Phone Number [facility] * CREATININE (03/24/2014) Creatinine, External 0.7 [facility] GFR, Calculated, External [facility] Blood specimen (specimen) 03/24/2014 Leon Lewis-GeneNewssy PA-C CHEMISTRY & BLOOD GAS ORDERABLES Performing Organization Address [facility] Co de Phone Number [facility] * HEMAGRAM (03/24/2014) HCT, External 40.1 [facility] MCH, External 29.7 [facility] MCV, External 87.6 [facility] MCHC, External 33.9 [facility] Hemoglobin, External 13.6 [facility] WBC, External 4.37 [facility] RBC, External 4.58 [facility] PLT, External 141 [facility] RDW-CV, External 12.4 [facility] Blood specimen (specimen) 03/24/2014 Leon LewisPraekelt FoundationSmitha PA-C HEMATOLOGY & PF4 ORDERABLES [facility] * CALCIUM (03/24/2014) Calcium, External 8.6 [facility] Calculated Calcium, External [facility] Blood specimen (specimen) 03/24/2014 Leon LewisService2Media PA-C CHEMISTRY & BLOOD GAS ORDERABLES [facility] * VITAMIN B12 (03/24/2014) Vitamin B-12, External 545 [facility] Blood specimen (specimen) 03/24/2014 Leon Lewis-GeneNewssy PA-C CHEMISTRY & BLOOD GAS ORDERABLES Performing Organization Address [facility] Co de Phone Number [facility] documented in this encounter Visit Diagnoses Diagnosis Morbid obesity ([facility])- Primary Morbid obesity S/P partial gastrectomy Other postprocedural status Post-resection malabsorption Other and unspecified postsurgical nonabsorption documented in this encounter Care Teams Donor Recruiter Relationship Specialty Start Date End Date Avery Caballero MD [address] [place] [address] PCP - General 12/20/10 documented as of this encounter
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
--- OUTSIDE RECORDS SUMMARY | 2024-04-08 18:10 | XMS_ITS | Encounter Summary ---
Author Organization [facility] Address [address] [place] [address] Care Team Providers Care Morning News Anchor Name Role Phone Avery Caballero MD Primary Care Provider [phone] Reason for Visit * Reason Comments Obesity #2 Encounter Details Date Type Department Care Team (Late st Contact Info) Description 12/12/2011 10:30 EDT Office Visit [facility] Bariatric Surgery [address] [address] Leon Georges, PA-C [address] [facility], [address] [place] [phone] Morbid obesity (HCC-CMS) (Primary Dx) Social History [...] Sign Reading Time Taken Comments Blood Pressure 124/70 12/12/2011 1032 EDT Pulse 64 12/12/2011 1032 EDT Temperature - - Respiratory Rate - - Oxygen Saturation - - Inhaled Oxygen Concentration - - Weight 102.9 kg (226 lb 12.8 oz) 12/12/2011 1032 EDT Height 149.7 cm (4' 10.94) 12/12/2011 1032 EDT Body Mass Index 45.91 12/12/2011 1032 EDT documented in this encounter Progress Notes * Leon Georges PA - 12/12/2011 1559 EDTAddended by: LEON GEORGES on: 12/12/2011 15:59 Modules accepted: Orders * Charlotte Lima RD - 12/12/2011 1104 EDT Medical Nutrition Evaluation-PRE OP NOTE Bariatric Clinic Nutrition Pre-op Visit Visit Number: 3 Desired surgery: Gastric Sleeve Subjective: obsessing over food and calories-so afraid of failure. Not able to enjoy her meals, too afraid Food logs: by hand Meal pattern: 3 Average caloric intake:1000 with many days <1000 janay Meal composition: balanced with ample protein, fruits and veggies Snacking: Exercise: recombi bike 60 min per day Objective: Weight: 226.8 lb Weight loss from last visit: -12.8 lb Total weight loss: Weight loss goal: Total Loss in lbs (Weight from Initial Consult - Today's Weight): 24.2 lbs Approximately 12 lb Surgery Date: Significant Medications and Supplements: multivitamin Assessment: Patient has met weight loss requirement for surgery Comments: large weight loss continues with now inadequate intake in calories. Advised patient to stay positive, allow herself more calories or she may slow down her metabolism. Encouraged her to practice mindful eating and enjoyment of eating. To raise calories to [phone] with at least 1/2 beforedinner meal. Great exercise! Plan: Diet Goals: Keep food records, Eat more slowly and Calorie goal [id number] Exercise Goals: Maintain current exercise Weight Loss Goal: Approximately 12 lb Weight Loss Remaining to Goal: Approximately met Reviewed: Food/Activity Record Next Visit: Nutrition class scheduled on 01/31/12 * Leon Georges PA - 12/12/2011 1100 EDT Avery Caballero MD [facility] [address] [place] [address] Dear Federico : Thank you for referring your patient, Hannah Ling, for evaluation and consideration of laparoscopic sleeve gastrectomy surgery. Ms. Ling met with Dr. Culver for his initial consultation on 10/05/11. She denies any changes in her medical history or medications since her previous visit. Ms. Malhotra a 46 y.o. female with adult-onset obesity. Her comorbidities include asthma and GERD. Review of Systems Constitutional: No fevers, chills. No weight loss or gain. HEENT: No upper respiratory infection symptoms Cardiovascular: No chest pain, no shortness of breath, able to walk up a flight of stairs with no dyspnea or pain. Respiratory: No wheezing, has asthma controlled by chronic advair and singulair only Renal: No dysuria or difficulty starting stream of urine GI: No nausea or vomiting, no diarrhea or constipation Endocrine: No polyuria or polydipsia Hematology: No excessive bruising or bleeding, no history of DVT Eyes: No acute changes Neurology: No slurred speech, no headache, no unilateral weakness Musculoskeletal: No muscle or joint pain except left knee which has been bothering her from fall atbeginning of winter Allergies/immunologic: No seasonal allergies, allergic to latex Current outpatient prescriptions:pantoprazole (PROTONIX) 40 mg tablet, Take 1 Tab by mouth daily., Disp: 30 Tab, Rfl: 12; Multivitamins with Minerals Tab, Take 1 Tab by mouth daily. , Disp: , Rfl: ; fluticasone-salmeterol (ADVAIR DISKUS) 250-50 mcg/dose diskus inhaler, Inhale 1 Puff as directed 2 times daily. , Disp: , Rfl: ; fluticasone (FLONASE) 50 mcg/actuation nasal spray, 1 Withams by Nasal route 2 times daily. , Disp: , Rfl: montelukast (SINGULAIR) 10 mg tablet, Take 10 mg by mouth daily. , Disp: , Rfl: ; ALBUTEROL INHL, Inhale 1 Puff as directed as needed. , Disp: , Rfl: Allergies include: Latex, natural rubber Past Surgical History Procedure Date ??? Hysterectomy ??? Appendectomy family history is not on file. Patient reports that she has never smoked. She does not have any smokeless tobacco history on file.She reports that she does not drink alcohol or use illicit drugs. For exercise Hannah is doing 60 minutes 4 times per week on recumbent bike. Walks about 2 hours perweek. Hannah met with our program oracle ebs developer for 30 minutes to review preoperative dietary recommendations. She has gained/lost almost 24 pounds since starting in our program. She has met her weight loss goal of 12 pounds. I did consult our oracle ebs developer following her visit with the patient and agree with herfindings and recommendations. On physical examination today, her BP 124/70 Pulse 64 Ht 149.7 cm (58.94) Wt 102.876 kg (226lb 12.8 oz) BMI 45.91 kg/m2 and Body mass index is 45.91 kg/(m^2).. Also, on physical exam General: No apparent distress, appears stated age HEENT: Moist mucous membranes Neck: No goiter Lungs: Clear to auscultation bilaterally Heart: Regular rate and rhythm Abdomen: Soft, non-distended, non-tender, +bowel sounds Musculoskeletal: Normal range of motion Neurological: Cranial nerves II-XII intact, strength intact in upper and lower extremities, patellar reflex 2+ bilaterally Ms. Ling is an appropriate candidate for laparoscopic sleeve gastrectomy surgery with a BMI of 45 and multiple life threatening comorbidities. 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 I did spend over 50% of this 45 minute visit in discussion of possible short and chcf risks and complications of bariatric surgery as they pertain to her particular health profile. I also discussed the importance of exercise for weight loss and weight loss maintenance and reviewed the importance of smoking cessation regarding both her cardiovascular risk factors as well as her ability to heal from surgery among many other health risks. If you have any questions or concerns regarding any information in this letter, please do not hesitate to contact me. Hannah Ling will be returning to our office in a few weeks for continued medically supervised weight loss in preparation for surgery. Sincerely Yours, TIFFANY Fuentes CC: documented in this encounter Plan of Treatment Not on file documented as of this encounter Visit Diagnoses Diagnosis Morbid obesity ([facility])- Primary Morbid obesity documented in this encounter Discontinued Medications Medication Sig Discontinue Reason Start Date End Da te pantoprazole (PROTONIX) 40 mg tablet Take 1 Tab by mouth daily. Therapy completed 10/17/2011 12/12/2011 documented as of this encounter Care Teams Morning News Anchor Relationship Specialty Start Date End Date Avery Caballero MD [address] [place] [address] PCP - General 12/20/10 documented as of this encounter
--- OUTSIDE RECORDS SUMMARY | 2024-04-08 18:10 | XMS_ITS | Encounter Summary ---
Author Organization [facility] Address [address] [place] [address] Care Team Providers Care Brick Washer Name Role Phone Avery Caballero MD Primary Care Provider [phone] Reason for Visit * Reason Comments Obesity Pre op Encounter Details Date Type Department Care Team (Late st Contact Info) Description 02/23/2012 15:30 EDT Office Visit [facility] Bariatric Surgery [address] [id number] Leon Georges, PA-C [address] [place] [address], [facility] [address] [place] [phone] Morbid obesity (HCC-CMS) (Primary Dx) Social History [...] Reading Time Taken Comments Blood Pressure 112/70 02/23/2012 1530 EDT Pulse 68 02/23/2012 1530 EDT Temperature - - Respiratory Rate - - Oxygen Saturation - - Inhaled Oxygen Concentration - - Weight 93 kg (205 lb) 02/23/2012 1530 EDT Height 149.7 cm (4' 10.94) 02/23/2012 1530 EDT Body Mass Index 41.49 02/23/2012 1530 EDT documented in this encounter Progress Notes * Charlotte Lima, RD - 02/23/2012 1602 EDT Medical Nutrition Evaluation-PRE OP NOTE Bariatric Clinic Nutrition Pre-op Visit Visit Number: 5 Desired surgery: Gastric Sleeve Subjective: Finding it hard to eat 1000 janay especially on the weekends-gets too busy, forgets to eat. Did both full liquid and blended diet-no problems on the liquid Food logs: on spark people Meal pattern: 3, sometimes 2 on weekends Average caloric intake:700-1100 janay Meal composition: generally well balanced Snacking: Exercise: limited due to pending knee surgery Objective: Weight: 205 lb Weight loss from last visit: -3.4 lb Total weight loss: Weight loss goal: Total Loss in lbs (Weight from Initial Consult - Today's Weight): 46 lbs Approximately 12 lb Surgery Date: Significant Medications and Supplements: multivitamin, vits C, D, B12, B6 Assessment: Patient has met weight loss requirement for surgery Comments: great weight loss continues but strongly advised patient to up her calories to at least 1000 per day! Full liquid diet done well and was the blended diet. To resume exercise as able after knee surgery Plan: Diet Goals: Keep food records, Eat more slowly and Calorie goal 1000 janay per day minimum Exercise Goals: resume as able after surgery Weight Loss Goal: Approximately 14 lb Weight Loss Remaining to Goal: Approximately met Reviewed: Food/Activity Record, Blenderized Diet Homework and Full Liquid Diet Trial Next Visit: Pre-op follow-up visit * Leon Georges PA - 02/23/2012 1526 EDT 02/23/2012 SUBJECTIVE: Hannah returns to our office today for continued medically supervised weight loss in preparation for laparoscopic sleeve gastrectomy surgery. She is a 46 y.o. 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 Her comorbidities include asthma and GERD. She is having surgery on her left knee in 1 week to fix torn meniscus. She has not been able to walk as much as she wishes. She has also started taking vit b12, vit C due to discussion with dentist. Otherwise, she denies any changes to her medical history or medications since his previous visit. She has done both of her classes and viewed the CODY. Hannah met with our program dietitian for 30 minutes to review preoperative dietary recommendations. I consulted with the dietitian following her visit with the patient and agree with her findings and recommendations. OBJECTIVE: On physical examination today, her BP 112/70 Pulse 68 Ht 149.7 cm (58.94) Wt 92.987 kg (205 lb) BMI 41.49 kg/m2 and Body mass index is 41.49 kg/(m^2).. PFTs 108% of predicted for FVC and 97% of predicted for FEV1 ASSESSMENT AND PLAN: Hannah will return to our office in a few weeks for continued medically-supervised weight loss in preparation for surgery. She understands that: She has met her weight loss goal for surgery but has to have one more month of visits before we can submit for surgery. TIFFANY Fuentes documented in this encounter Plan of Treatment Not on file documented as of this encounter Visit Diagnoses Diagnosis Morbid obesity ([facility])- Primary Morbid obesity documented in this encounter Historical Medications * This list may reflect changes made after this encounter. Medication Sig Dispensed Refills Start Date End Date cyanocobalamin 500 mcg tablet Take 500 mcg by mouth daily. pyridoxine (VITAMIN B6) 50 mg tablet Take 50 mg by mouth daily. cholecalciferol, Vitamin D3, (VITAMIN D3) 2,000 unit tablet Take 2,000 Units by mouth daily. ascorbic acid (VITAMIN C) 500 mg tablet Take 500 mg by mouth daily. 05/28/2012 added in this encounter Care Teams Brick Washer Relationship Specialty Start Date End Date Avery Caballero MD [address] [place] [address] PCP - General 12/20/10 documented as of this encounter
--- OUTSIDE RECORDS SUMMARY | 2024-04-08 18:10 | XMS_ITS | Encounter Summary ---
Author Organization [facility] Address [address] [place] [address] Care Team Providers Care Weight And Balance Control Agent Name Role Phone Avery Caballero MD Primary Care Provider [phone] Reason for Visit * Reason Onset Date Comments Other 09/19/2012 Encounter Details Date Type Department Care Team (Late st Contact Info) Description 09/19/2012 Telephone [facility] Bariatric Surgery - [address] [id number] Bebeto Culver MD [address] [place] [phone] Other Social History Tobacco Use Types Packs/Day Years Used Date Smoking Tobacco: Never Alcohol Use Standard Drinks/Week Comments No 0 (1 standard drink = 0.6 oz pur e alcohol) Sex and Gender Information Value Date Recorded Sex Assigned at Not on file Gender Identity Not on file Sexual Orientation Not on file documented as of this encounter Miscellaneous Notes * Telephone Encounter - Alyson Christine - 09/19/2012 1618 EST Called Hannah and SW her to confirm surgery check-in time with Dr. Culver . Surgery is scheduled on 09/20 at 7:30am. [facility] documented in this encounter Plan of Treatment Not on file documented as of this encounter Visit Diagnoses Not on filedocumented in this encounter Care Teams Weight And Balance Control Agent Relationship Specialty Start Date End Date Avery Caballero MD [address] [place] [address] PCP - General 12/20/10 documented as of this encounter
--- OUTSIDE RECORDS SUMMARY | 2024-04-08 18:10 | XMS_ITS | Encounter Summary ---
Author Organization [facility] Address [address] [place] [address] Care Team Providers Care Excellence Leader Name Role Phone Avery Caballero MD Primary Care Provider [phone] Reason for Visit * Reason Comments Obesity 2nd post-op sleeve Encounter Details Date Type Department Care Team (Late st Contact Info) Description 10/03/2012 11:[address] [facility] Bariatric Surgery [address] [phone] Bebeto Culver MD [address] [place] [phone] Morbid obesity (HCC-CMS) (Primary Dx) Discharge Disposition: [...] Sign Reading Time Taken Comments Blood Pressure 102/70 10/03/2012 1137 EST Pulse 76 10/03/2012 1137 EST Temperature - - Respiratory Rate - - Oxygen Saturation - - Inhaled Oxygen Concentration - - Weight 87 kg (191 lb 12.8 oz) 10/03/2012 1137 ES T Height 149.7 cm (4' 10.94) 10/03/2012 1137 EST Body Mass Index 38.82 10/03/2012 1137 EST documented in this encounter Discharge Disposition Disposition Code Departure Means Destination Auto Discharge documented in this encounter Progress Notes * Charlotte Lima, RD - 10/03/2012 1202 EST Nutrition Post Op Visit: Gastric Sleeve Subjective: Patient returns to clinic for post op nutritional counseling following bariatric surgery 2 weeks ago. Doing much better-on full liquids with 45-50 gr protein per day no problem Questionnaire Reviewed: Yes Intolerance Episodes: no Food Intolerances: n/a Current Exercise: walking Objective: Current Weight: Wt Readings from Last 1 Encounters: 10/03/12 87 kg (191 lb 12.8 oz) Current BMI: Body mass index is Body mass index is 38.82 kg/(m^2).. Total Weight Loss: Total Loss in lbs (Weight from Initial Consult - Today's Weight): 59.2 lbs Weight Change since Last Visit:same as last week, since surgery lost 18.8 lb Supplement Usage: Type Amount none Assessment: Adequate Meal Frequency: Yes Adequate Meal Composition: Yes Exercise Adequacy: Yes Nutritional Issues: much improved intake and rehydrated. reviewed progression to blended diet starting today and start of chewable multivitamin with iron Plan: Change intake-progress to blended diet as tolerated Supplement Changes-start chewable multivitamin wit iron Education Provided: Other -diet progression and supplements * Bebeto Culver MD - 10/03/2012 1148 EST 10/03/2012 Hannah Ling is here in follow-up to her laparoscopic sleeve gastrectomy. The weight trend for the patient is: Weight at initial consult: 113.853 kg (251 lb), to 87 kg (191 lb 12.8 oz) [09/26/2012]at the last post-op visit to today's Weight [...] Appearance: morbidly obese Abdomen: Incision well-healed Extremities: No clubbing, cyanosis or edema Skin: Normal ASSESSMENT: Doing well and Weight Loss: good PLAN: 1. Return to clinic in 1 week(s). 2. No orders of the defined types were placed in this encounter. 3. Seen and discussed with Classroom Instructor at this visit. Bebeto Culver MD 10/03/2012 11:48 * Sandi Larson - 10/03/2012 1138 EST 30-Day Plus Bariatric Surgery Postop Questionnaire Anticoagulation initiated for presumed/confirmed DVT/PE? No Incisional hernia noted on exam? No Sleep Apnea requiring CPAP or BiPap? No GERD requiring daily use of PPI or H2 blockers? Yes, taking omeprazole 40mg Musculoskeletal Disease? No If yes, is activity [...] suspected reason for admission) No Sandi Larson 10/03/2012 11:38 documented in this encounter Plan of Treatment Not on file documented as of this encounter Visit Diagnoses Diagnosis Morbid obesity ([facility])- Primary Morbid obesity documented in this encounter Care Teams Excellence Leader Relationship Specialty Start Date End Date Avery Caballero MD [address] [place] [id number] PCP - General 12/20/10 documented as of this encounter
--- OUTSIDE RECORDS SUMMARY | 2024-04-08 18:10 | XMS_ITS | Encounter Summary ---
Author Organization [facility] Address [address] [place] [address] Care Team Providers Care Can Runner Name Role Phone Avery Caballero MD Primary Care Provider [phone] Reason for Visit * Reason Onset Date Comments Results 09/05/2013 Encounter Details Date Type Department Care Team (Late st Contact Info) Description 09/05/2013 Orders Only [facility] Bariatric Surgery - [place] [address] [place] [address] Desi Rios RN Morbid obesity ([facility]); S/P partial gastrectomy; Post-resection malabsorption Social History [...] Diagnosis Comments THIAMIN (VITAMIN B1), WB Routine 09/02/2013 Morbid obesity ([facility]) S/P partial gastrectomy Post-resection malabsorption VITAMIN D (25,[place]) Routine 09/02/2013 Morbid obesity ([facility]) S/P partial gastrectomy Post-resection malabsorption PTH INTACT Routine 09/02/2013 Morbid obesity ([facility]) S/P partial gastrectomy Post-resection malabsorption COMPLETE BLOOD COUNT Routine 09/02/2013 Morbid obesity ([facility]) S/P partial gastrectomy Post-resection malabsorption IRON Routine 09/02/2013 Morbid obesity (HCC-CMS) S/P partial gastrectomy Post-resection malabsorption FERRITIN Routine 09/02/2013 Morbid obesity (HCC-CMS) S/P partial gastrectomy Post-resection malabsorption VITAMIN B12 Routine 09/02/2013 Morbid obesity (HCC-CMS) S/P partial gastrectomy Post-resection malabsorption CREATININE Routine 09/02/2013 Morbid obesity (HCC-CMS) S/P partial gastrectomy Post-resection malabsorption CALCIUM Routine 09/02/2013 Morbid obesity ([facility]) S/P partial gastrectomy Post-resection malabsorption documented in this encounter Results * HEMAGRAM (09/02/2013) HCT, External 42.6 [facility] MCH, External 29.5 [facility] MCV, External 87.3 [facility] MCHC, External 33.8 [facility] Hemoglobin, External 14.4 [facility] WBC, External 4.85 [facility] RBC, External 4.88 [facility] PLT, External 162 [facility] RDW-CV, External 12.8 [facility] Blood specimen (specimen) 09/02/2013 Leon Georges PA-C HEMATOLOGY & PF4 ORDERABLES Performing Organization Address City/[facility]/ZIP Co de Phone Number [facility] * CREATININE (09/02/2013) Creatinine, External 0.7 [facility] GFR, Calculated, External [facility] Blood specimen (specimen) 09/02/2013 Leon ALLEN-Jonathan CHEMISTRY & BLOOD GAS ORDERABLES [facility] * VITAMIN B12 (09/02/2013) Vitamin B-12, External 516 [facility] Blood specimen (specimen) 09/02/2013 Leon Azucena Desalltter-Cressy PA-C CHEMISTRY & BLOOD GAS ORDERABLES [facility] * CALCIUM (09/02/2013) Calcium, External 9.2 [facility] Calculated Calcium, External [facility] Blood specimen (specimen) 09/02/2013 Leon Burrelltter-Cressy PA-C CHEMISTRY & BLOOD GAS ORDERABLES Performing Organization Address City/[facility]/ZIP Co de Phone Number [facility] * FERRITIN (09/02/2013) Ferritin, External 27 [facility] Blood specimen (specimen) 09/02/2013 Leon Azucena Indratter-Cressy PA-C CHEMISTRY & BLOOD GAS ORDERABLES [facility] * THIAMIN (VITAMIN B1), WB (09/02/2013) Thiamine, External 106 [facility] Comment, External [facility] Blood specimen (specimen) 09/02/2013 Leon Zeng Desalltter-Cressy PA-C CHEMISTRY & BLOOD GAS ORDERABLES [facility] * VITAMIN D (25,[place]) (09/02/2013) 25OH Vitamin D Tot, External 26.7 [facility] Blood specimen (specimen) 09/02/2013 Leon Zeng Saraer-Cressy PA-C CHEMISTRY & BLOOD GAS ORDERABLES [facility] * IRON (09/02/2013) Iron, External 85 [facility] Blood specimen (specimen) 09/02/2013 Leon Zeng Indratter-Cressy PA-C CHEMISTRY & BLOOD GAS ORDERABLES Performing Organization Address City/[facility]/ZIP Co de Phone Number [facility] * PTH INTACT (09/02/2013) PTH, External 45 [facility] Blood specimen (specimen) 09/02/2013 Leon Zeng Saraer-Cressy PA-C CHEMISTRY & BLOOD GAS ORDERABLES Performing Organization Address City/[facility]/ZIP Co de Phone Number [facility] documented in this encounter Visit Diagnoses Diagnosis Morbid obesity ([facility]) Morbid obesity S/P partial gastrectomy Other postprocedural status Post-resection malabsorption Other and unspecified postsurgical nonabsorption documented in this encounter Care Teams Can Runner Relationship Specialty Start Date End Date Avery Caballero MD [address] [place] [address] PCP - General 12/20/10 documented as of this encounter
--- OUTSIDE RECORDS SUMMARY | 2024-04-08 18:10 | XMS_ITS | Encounter Summary ---
Author Organization [facility] Address [address] [place] [address] Care Team Providers Care Postmaster Relief Name Role Phone Avery Caballero MD Primary Care Provider [phone] Reason for Visit * Reason Comments Obesity Pre op Encounter Details Date Type Department Care Team (Late st Contact Info) Description 05/03/2012 14:30 EDT Office Visit [facility] Bariatric Surgery [address] [id number] Leon Georges, PA-C [address] [place] [address], [facility] [address] [place] [phone] Morbid obesity (HCC-CMS) (Primary Dx) Social History [...] Sign Reading Time Taken Comments Blood Pressure 116/60 05/03/2012 1449 EDT Pulse 72 05/03/2012 1449 EDT Temperature - - Respiratory Rate - - Oxygen Saturation - - Inhaled Oxygen Concentration - - Weight 92.6 kg (204 lb 3.2 oz) 05/03/2012 1449 E DT Height 149.7 cm (4' 10.94) 05/03/2012 1449 EDT Body Mass Index 41.33 05/03/2012 1449 EDT documented in this encounter Progress Notes * Charlotte Lima, RD - 05/03/2012 1512 EDT Medical Nutrition Evaluation-PRE OP NOTE Bariatric Clinic Nutrition Pre-op Visit Visit Number: 7 Desired surgery: Gastric Sleeve Subjective: 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 To return to work next week Food logs: on website Meal pattern: 2-3 Average caloric intake:3057-5133 janay Meal composition: well balanced! Snacking: Exercise: limited to PT, now restarting Objective: Weight: 204.2 lb Weight loss from last visit: -1 lb Total weight loss: Weight loss goal: Total Loss in lbs (Weight from Initial Consult - Today's Weight): 46.8 lbs Approximately 12 lb Surgery Date: Significant Medications and Supplements: multivitamin, Vit C,D,B6, B12 Assessment: Patient has met weight loss requirement for surgery Comments: weight loss despite lack of exercise! Great intake, though advised consistent 3 meals. Toresume exercise when able Plan: Diet Goals: Keep food records and Eat more slowly Exercise Goals: Increase time to 150 min per when able Weight Loss Goal: Approximately 12 lb Weight Loss Remaining to Goal: Approximately met Reviewed: Food/Activity Record Next Visit: Pre-op follow-up visit * Leon Georges PA - 05/03/2012 1441 EDT 05/03/2012 SUBJECTIVE: Hannah returns to our office today for continued medically supervised weight loss in preparation for laparoscopic sleeve gastrectomy surgery. She is a 47 y.o. 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 Her comorbidities include asthma and GERD. Doing well with exercise after knee surgery. Otherwise, she denies any changes to her medical history or medications since his previous visit. Hannah met with our program dietitian for 30 minutes to review preoperative dietary recommendations. I consulted with the dietitian following her visit with the patient and agree with her findings and recommendations. OBJECTIVE: On physical examination today, her There were no vitals taken for this visit. and There is no height or weight on file to calculate BMI.. ASSESSMENT AND PLAN: Hannah will return to our office in a few weeks for continued medically-supervised weight loss in preparation for surgery. She understands that: She has been submitted and we areawaiting approval - food logs now here. TIFFANY Fuentes documented in this encounter Plan of Treatment Not on file documented as of this encounter Visit Diagnoses Diagnosis Morbid obesity ([facility])- Primary Morbid obesity documented in this encounter Historical Medications * This list may reflect changes made after this encounter. Medication Sig Dispensed Refills Start Date End Date SULFAMETHOXAZOLE/TRIMETH OPRIM (BACTRIM ORAL) Take by mouth. 7 day pack - almost finished (05/03/12). Unsure of dosage 08/30/2012 added in this encounter Care Teams Postmaster Relief Relationship Specialty Start Date End Date Avery Caballero MD [address] [place] [address] PCP - General 12/20/10 documented as of this encounter
--- OUTSIDE RECORDS SUMMARY | 2024-04-08 18:11 | XMS_ITS | Encounter Summary ---
Author Organization [facility] Address [address] [place] [address] Care Team Providers Care Fly Winder Name Role Phone Unavailable Primary Care Provider Unavailabl e Encounter Details Date Type Department Care Team (Late st Contact Info) Description 07/26/2007 Results Only [facility] - [place] [address] [place] [address] Benji Parrish MD [address] [place] [address] Social History Tobacco Use Types Packs/Day Years Used Date Smoking Tobacco: Never Assessed Sex and Gender Information Value Date Recorded Sex Assigned at Not on file Gender Identity Not on file Sexual Orientation Not on file documented as of this encounter Plan of Treatment Not on file documented as of this encounter Procedures Procedure Name Priority Date/Time Associated Diagnosis Comments SURGICAL PATHOLOGY Routine 07/26/2007 0:00 EST documented in this encounter Results * SURGICAL PATHOLOGY (07/26/2007 0:00 EST) Pathology Report: SURGICAL PATHOLOGY REPORT Reports generated via electronic interface contain original data; however they are lacking the format of the original report. Caution should be taken when reading/interpreti ng unformatted reports. Name: ? HANNAH WONG ? Accession #: ? [id number] ? : ? 1965 (Age: 42) ??F ? Collect Date: ? 07/26/2007 ? Location: ? [facility] ? Receive Date: ? 07/29/2007 ? Provider: BENJI PARRISH MD Copy to: PADDY العلي MD ? Final Pathologic Diagnosis: ? Uterus, cervix, bilateral ovaries and fallopian tubes, hysterectomy: 1. ?Cervix: ? - No pathologic features. ? 2. ?? Endometrium: ?- Proliferative endometrium with no pathologic features. ? 3. ?? Myometrium: ? - Adenomyosis. ? 4. ?? Serosa: ? - No pathologic features. ? 5. ?? Ovary and fallopian tube, right: ? - Ovary with cystic follicle. ? - Fallopian tube with paratubal cyst. ? 6. ?? Ovary and fallopian tube, left: ? - Ovary with follicular cyst. ? - Fallopian tube with paratubal cyst. Document reviewed and electronically signed by: Sommer Abdullahi MD Report ??Date: 07/31/2007 16:14 By the signature above, the attending physician certifies that he/she has personally conducted a gross and/or microscopic examination of the described specimens and rendered or confirmed the above diagnosis. Specimen(s) Received: ? Uterus, cervix, tubes & ovaries Clinical History: ? A.U.B. unresponsive to Rx; LMP: ongoing Gross Description: ? Received in formalin labelled Brink and uterus, cervix, kristen. tubes and ovaries is the product of a hysterectomy to include uterus, detached cervix and detached bilateral adnexa. ??The uterus and cervix have a combined weight of 136 grams and measures 7.5 cm from fundus to lower uterine segment, 4.5 cm from left to right, and 4.5 cm from anterior to posterior. ??The detached portion of cervix measures 3.5 x 3.0 x 2.2 cm and has a smooth, white, and glistening ectocervix and a central 1.2 cm in diameter slit-like os. ??The schilling-white, smooth and glistening endocervix has a normal herringbone pattern. ?? The serosa is schilling-brown, smooth, and glistening and has a 1.0 x 0.7 x 0.5 cm cystic nodule present on the anterior aspect which upon sectioning reveals clear serous fluid and a smooth inner lining. ??The specimen is bivalved in to anterior and posterior halves revealing a schilling-pink 0.2 cm in average thickness lush endometrium and an underlying schilling-white 1.8 cm in average thickness finely trabeculated myometrium. ??The myometrium of the mid uterus on both the anterior and programs assistant halves reveals a curvilinear possible area of hemorrhage measuring 2.6 cm on the posterior half, and 1.6 cm on the anterior half. ??There are no nodules or other abnormalities present. ??The left ovary and left previously interrupted fallopian tube has a combined weight of 13.2 grams. ??The fallopian tube measures 5.1 cm in length by 0.3 cm in diameter and shows a 1.5 x 1.2 x 1.1 cm paratubal cyst adjacent to the fimbriated end. ??The left ovary measures 3.1 x 3.0 x 2.1 cm and has a white firm lobulated to soft and cystic external surface. Sectioning of the ovary reveals 2.7 x 2.0 x 1.3 cm cyst which has a smooth inner lining without papillary excrescences or hemorrhage, a wall thickness of 0.1 cm, and contains clear yellow serous fluid. ??The right ovary and previously interrupted fallopian tube have a combined weight of 7.6 grams. ??The right fallopian tube measures 4.5 cm in length by 0.3 cm in diameter and shows paratubal cysts present near the fimbriated end which measures 0.3 x 0.2 x 0.1 cm and 0.8 x 0.5 x 0.3 cm. ??The right ovary measures 2.6 x 2.0 x 1.0 cm and has a white firm lobulated external surface. ??Sectioning reveals a 1.3 x 0.6 x 0.5 cm cyst which has a smooth and glistening inner lining, a wall thickness of 0.1 cm, and contains a small amount of clear yellow serous fluid. ??Cop sections are submitted as follows: BLOCK WALLACE A1, A2 ?Cervix A3 ?Anterior endomyometrium, fundus A4 ?Anterior endomyometrium, mid, includes curvilinear possible hemorrhage A5 ?Anterior lower uterine segment A6 ?Posterior endomyometrium, fundus, to include curvilinear hemorrhage A6 ?Posterior endomyometrium, mid A8 ?Posterior lower uterine segment A9 ?Posterior cul-de-sac A10, A11 ? Left ovary A12 ?Left fallopian tube A13 ?Right ovary A14 ?Right fallopian tube (Dr. Zarate)/[facility] NOTE: ??Block A6 was dictated 2x. End of Report BLANQUITA BRAVO 07/26/2007 07/29/2007 15: 29 EST Benji Parrish MD PATHOLOGY ORDERABLES BLANQUITA BRAVO [address] [place] [address] documented in this encounter Visit Diagnoses Not on filedocumented in this encounter
--- OUTSIDE RECORDS SUMMARY | 2024-04-08 18:11 | XMS_ITS | Encounter Summary ---
Author Organization [facility] Address [address] [place] [address] Care Team Providers Care Helper Maintenance Cleaning Name Role Phone Avery Caballero MD Primary Care Provider Reason for Visit * Reason Comments Obesity Psych Eval Encounter Details Date Type Department Care Team (Late st Contact Info) Description 09/18/2011 14:00 EST Office Visit [facility] Bariatric Surgery [address] [id number] Andreea Rios, PhD [address] [place] [address] [phone] Unspecified adjustment reaction (Primary Dx) Social History [...] - Inhaled Oxygen Concentration - - Weight 113.4 kg (250 lb) 09/18/2011 1403 EST Height - - Body Mass Index - - documented in this encounter Progress Notes * Andreea Rios, PhD - 09/18/2011 1404 EST Bariatric Surgery Program Behavioral Health Evaluation Patients Name: Hannah Ling Date of Service: 09/18/2011 Type of Service: PSYCHIATRIC DX INTERVIEW EXAM [[id number]] Length of Session: 50 minutes Primary Care Provider: Avery Caballero MD Referred By: Dr. Culver Limits of Confidentiality Reviewed: Yes Objective Measures Administered: BDI-II PURPOSE: To identify psychosocial contraindications to Bariatric Surgery and to make recommendations aimed at facilitating the best possible outcome for the patient. HISTORY OF PRESENT ILLNESS: A. Current Weight: 250 pounds B. Highest Adult Weight: 257 pounds C. Lowest Adult Weight: 183 pounds D. Reasons for Seeking Surgery: Pt reported some temporary success withlosing weight, but is looking at surgery as an additional tool to achieve more weight loss and weight loss maintanence E. Expectations of Surgery: Pt expects to be more physically active, Pt expects improved health andPt expects to live longer F. Eating Behaviors: problematic eating patterns, poor food choices, skipping meals and eating large quantities of food during the night G. Dieting History: 1. Pt reported participating in Weight Watchers in the past, Pt reported trying the Atkins Diet in the past, Pt reported trying the Teasdale Diet in the past and Te[place]dale 2. Has anything worked well? Temporary and modest weight loss What was it that made that method helpful? Weight Watchers - coincided with period of life when she was not caring for other people 3. What factors led to regaining weight? Taking care of other people PERTINENT MEDICAL HISTORY: No past medical history on file. CURRENT MEDICATIONS: No current outpatient prescriptions on file. ADHERENCE TO POST-SURGICAL REGIMEN: 1. How will it be for you to change your eating patterns? Patient has confidence that she can make changes particularly with the support of the automotive parts counter person and other aspects of the program. Do you worry that you will have feelings of loss or deprivation? No 2. If you have had trouble limiting your eating in the past, what will make it different if you have surgery? Motivation to prevent weight-related health problems and increase longevity. 3. If you have coped with emotions in the past by eating, what other coping strategies will you useif you have surgery? Used employee assistant professor of life sciences program to learn new coping skill 4. How will your living environment affect your attempts to eat healthfully? is very supportive 5. Will your daily schedule of work or other responsibilities allow you to eat frequently and healthfully and to engage in frequent physical activity? Yes - has support from coworkers and is a great cook and is learning recipes that are appropriate for individuals who have had Bariatric surgery. RELATIONSHIPS / SUPPORT SYSTEM: 1. How do your friends and family feel about your desire to have bariatric surgery? Very supportive 2. Who will be available to help care for you immediately after surgery? and sister 3. If you are successful in losing weight, how might this affect your relationships? Expects to be more active with her grandchildren 4. Is there anyone who might feel unhappy or uncomfortable with your weight loss? No CURRENT PSYCHIATRIC HISTORY: Current Mood Problems: Pt denied experiencing any current problems with mood Suicidal Ideation/Attempts: none Homicidal Ideation: No homicidal thoughts Current Psychiatric Treatment: none Significant Stressors in Past Year: none PAST PSYCHIATRIC HISTORY: Previous Psychiatric Treatment: Therapy, Outpatient - 20 years ago to deal with parenting teenage son. Also accessed EAP sessions History of Psychiatric Hospitalization: No History of Depression: No History of Anxiety: Pt denied any history of anxiety. Past Suicidal Ideation/Attempts: No Past use of Psychopharmaceutical Medications: None FAMILY PSYCHIATRIC HISTORY: Family History of Psychiatric Problems: No Family History of Substance Abuse: No SUBSTANCE USE HISTORY: Current caffeine use: Yes Number of caffeinated drinks consumed on average per day: 1 Number of caffeinated drinks consumed on average per week: 7 Current alcohol use: Pt denied any alcohol use. Number of alcoholic drinks consumed on average per day: 0 Number of alcoholic drinks consumed on average per week: 0 Number of alcohol drinks typically consumed in one sittin History of alcohol use: Pt denied any history of problems with alcohol use. Current use of recreational drugs: Never History of recreational drug use: Never Current smoking habit: no History of smoking habit: no PAST FAMILY AND SOCIAL HISTORY: Marital Status: Number of Children: 3 Patient Currently Lives: with spouse Patient's Mother: Patient's Father: Siblings: : 1; sisters: 3 brother:2 Social Support Level: adequate History of Traumatic Events: Yes -father when she was 1; mother with 7 children - moved around a lot without much stability History of Physical/Sexual Abuse: Pt denied experiencing any physical or sexual abuse. 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9 AXIS II: none AXIS III: asthma, obstructive sleep apnea and urinary stress incontinence AXIS IV: none AXIS V: GAF equals 72 Readiness for Surgery: A. This patient appears to be psychologically capable of cooperating with and benefiting from Laparoscopic Gastric Banding Surgery and Gastrectomy Sleeve. B. This patient is not an appropriate candidate for bariatric surgery due to the following psychosocial contraindications: N/A C. The following information is needed prior to determining the patient's appropriateness for surgery: none PLAN: Patient agrees with treatment plan. Patient seems motivated for treatment. Individual psychological follow-up at the Bariatric Program is not indicated at this time. Andreea Rios, PHD 09/18/2011 14:04 Licensed Psychologist-Doctorate documented in this encounter Plan of Treatment Not on file documented as of this encounter Visit Diagnoses Diagnosis Unspecified adjustment reaction- Primary documented in this encounter Care Teams Helper Maintenance Cleaning Relationship Specialty Start Date End Date Avery Caballero MD [address] [place] [address] PCP - General 12/20/10 documented as of this encounter
--- OUTSIDE RECORDS SUMMARY | 2024-04-08 18:11 | XMS_ITS | Encounter Summary ---
Author Organization [facility] Address [address] [place] [address] Care Team Providers Care Public Events Facilities Rental Manager Name Role Phone Unavailable Primary Care Provider Unavailabl e Encounter Details Date Type Department Care Team (Late st Contact Info) Description 04/10/2000 Results Only [facility] - Maple conversion [address] [place] [address] Benji Parrish MD [address] [place] [address] Social History Tobacco Use Types Packs/Day Years Used Date Smoking Tobacco: Never Assessed Sex and Gender Information Value Date Recorded Sex Assigned at Not on file Gender Identity Not on file Sexual Orientation Not on file documented as of this encounter Plan of Treatment Not on file documented as of this encounter Procedures Procedure Name Priority Date/Time Associated Diagnosis Comments CYTOPATHOLOGY Routine 04/10/2000 0:00 EDT documented in this encounter Results * CYTOPATHOLOGY (04/10/2000 0:00 EDT) Pathology Report: CYTOPATHOLOGY REPORT Reports generated via electronic interface contain original data; however they are lacking the format of the original report. Caution should be taken when reading/interpreti ng unformatted reports. Name: ? HANNAH WONG ? Accession #: ? [id number] : ? 1965 (Age: 35) ??F ?Collect Date: ? 04/10/2000 Location: ? [facility] ? Receive Date: ? 04/12/2000 Provider: ?BENJI PARRISH MD Copy to: ? Specimen/Source: ?ThinPrep Pap Test, Cervix/Endocervix Last Menstrual Period: ? 03/12/00 ? SPECIMEN ADEQUACY ? Satisfactory for evaluation. GENERAL CATEGORIZATION ? Benign Cellular Changes DESCRIPTIVE DIAGNOSIS ? Fungal organisms present morphologically consistent with Shanelle species. ? Document reviewed and electronically signed by: ? KOLTON Graham(ASCP) ? Report Date: ??04/16/2000 12:48 End of Report [facility] 04/10/2000 04/12/2000 Benji Parrish MD PATHOLOGY ORDERABLES [facility] [address] [place] [address] documented in this encounter Visit Diagnoses Not on filedocumented in this encounter
--- OUTSIDE RECORDS SUMMARY | 2024-04-08 18:11 | XMS_ITS | Encounter Summary ---
Author Organization [facility] Address [address] [place] [address] Care Team Providers Care Childrens Club Attendant Name Role Phone Unavailable Primary Care Provider Unavailabl e Encounter Details Date Type Department Care Team (Late st Contact Info) Description 03/27/2001 Results Only [facility] - Maple conversion [address] [place] [address] Benji Parrish MD [address] [place] [address] Social History Tobacco Use Types [...] Priority Date/Time Associated Diagnosis Comments CYTOPATHOLOGY Routine 03/27/2001 0:00 EDT documented in this encounter Results * CYTOPATHOLOGY (03/27/2001 0:00 EDT) Pathology Report: CYTOPATHOLOGY REPORT Reports generated via electronic interface contain original data; however they are lacking the format of the original report. Caution should be taken when reading/interpreti ng unformatted reports. Name: ? HANNAH WONG ? Accession #: ? [id number] : ? 1965 (Age: 36) ??F ?Collect Date: ? 03/27/2001 Location: ? [facility] ? Receive Date: ? 03/29/2001 Provider: ?BENJI PARRISH MD Copy to: ? Specimen/Source: ?ThinPrep Pap Test, Cervix/Endocervix Last Menstrual Period: ? 03/20/01 ? SPECIMEN ADEQUACY ? Satisfactory for evaluation. GENERAL CATEGORIZATION ? Benign Cellular Changes DESCRIPTIVE DIAGNOSIS ? Reactive cellular changes associated with inflammation present (includes repair). ? Document reviewed and electronically signed by: ? Alba Díaz MD ? Report Date: ??04/05/2001 09:11 End of Report [facility] 03/27/2001 03/29/2001 Benji Parrish MD PATHOLOGY ORDERABLES [facility] [address] [place] [address] documented in this encounter Visit Diagnoses Not on filedocumented in this encounter
--- OUTSIDE RECORDS SUMMARY | 2024-04-08 18:11 | XMS_ITS | Encounter Summary ---
Author Organization [facility] Address [address] [place] [address] Care Team Providers Care Oral And Maxillofacial Surgery Name Role Phone Unavailable Primary Care Provider Unavailabl e Encounter Details Date Type Department Care Team (Late st Contact Info) Description 07/05/2007 Results Only [facility] - Maple conversion [address] [place] [address] Benji Parrish MD [address] [place] [address] Social History Tobacco Use Types [...] Priority Date/Time Associated Diagnosis Comments CYTOPATHOLOGY Routine 07/05/2007 0:00 EDT documented in this encounter Results * CYTOPATHOLOGY (07/05/2007 0:00 EDT) Pathology Report: CYTOPATHOLOGY REPORT Reports generated via electronic interface contain original data; however they are lacking the format of the original report. Caution should be taken when reading/interpreti ng unformatted reports. Name: ? HANNAH WONG ? Accession #: ? [id number] : ? 1965 (Age: 42) ??F ?Collect Date: ? 07/05/2007 Location: ? [facility] ? Receive Date: ? 07/08/2007 Provider: ?BENJI PARRISH MD Copy to: ? Specimen/Source: ?ThinPrep Pap Test, Cervix/Endocervix, processed on [employer] ThinPrep Imaging System, with manual evaluation Last Menstrual Period: ? 06/07/07 Hormonal/Contracep tive Status: ? Tubal ligation Other: ? Additional clinical information: No hormones HPVA - HPV testing requested if ASC-US on the current ThinPrep Pap test. ? SPECIMEN ADEQUACY ? Unsatisfactory for Evaluation, - insufficient numbers of squamous epithelial cells (less than 10% of expected cellularity) - sample preparation compromised by excessive blood GENERAL CATEGORIZATION ? Specimen processed and examined, but unsatisfactory for evaluation of epithelial abnormality. Recommend repeat Pap test or further follow up, as clinically indicated. ? Document reviewed and electronically signed by: ? ANUP Lazar(ASCP) ? Report Date: ??07/15/2007 09:40 End of Report [facility] 07/05/2007 07/08/2007 Benji Parrish MD PATHOLOGY ORDERABLES Performing Organization Address City/State/[facility] Co de Phone Number [facility] [address] [place] [address] documented in this encounter Visit Diagnoses Not on filedocumented in this encounter
--- OUTSIDE RECORDS SUMMARY | 2024-04-08 18:11 | XMS_ITS | Encounter Summary ---
Author Organization [facility] Address [address] [place] [address] Care Team Providers Care Acquisitions Editor Name Role Phone Unavailable Primary Care Provider Unavailabl e Encounter Details Date Type Department Care Team (Late st Contact Info) Description 08/25/2004 Results Only [facility] - Maple conversion [address] [place] [address] Angelica Johnson MD [address] [place] [address] [place] [address] Social History Tobacco Use Types Packs/Day Years Used Date Smoking Tobacco: Never Assessed Sex and Gender Information Value Date Recorded Sex Assigned at Not on file Gender Identity Not on file Sexual Orientation Not on file documented as of this encounter Plan of Treatment Not on file documented as of this encounter Procedures Procedure Name Priority Date/Time Associated Diagnosis Comments SURGICAL PATHOLOGY Routine 08/25/2004 0:00 EST documented in this encounter Results * SURGICAL PATHOLOGY (08/25/2004 0:00 EST) Pathology Report: SURGICAL PATHOLOGY REPORT Reports generated via electronic interface contain original data; however they are lacking the format of the original report. Caution should be taken when reading/interpreti ng unformatted reports. Name: ? HANNAH WONG ? Accession #: ? [id number] ? : ? 1965 (Age: 39) ??F ? Collect Date: ? 08/25/2004 ? Location: ? [facility] ? Receive Date: ? 08/29/2004 ? Provider: ANGELICA JOHNSON MD Copy to: PADDY العلي MD ? Final Pathologic Diagnosis: ? Endometrium, curettage: 1. ?Focal simple hyperplasia (aka: Disordered proliferative endometrium). ??See comment. ? - ??No cytologic atypia identified. 2. ?Focal stromal breakdown and stromal pseudodecidualizat ion, consistent with exogenous ? hormone effect. Comment: ? The histopathologic changes present have been observed with anovulatory cycles. ??(Dr. Joseph) Document reviewed and electronically signed by: IRMA JOSEPH MD Report ??Date: 08/30/2004 17:34 By the signature above, the attending physician certifies that he/she has personally conducted a gross and/or microscopic examination of the described specimens and rendered or confirmed the above diagnosis. Specimen(s) Received: ? Endometrial curettings Clinical History: ? Menorrhagia, dysmenorrhea, desires sterilization. ?? Gross Description: ? Received in formalin labelled Brink and endometrial curettings are 2.0 x 2.0 x 0.6 cm of multiple red-brown, hemorrhagic, predominantly mucoid, soft tissue fragments. ??The specimen is entirely submitted in one cassette. ??(Maria Del Rosario Adhikari/jakub End of Report [facility] 08/25/2004 08/29/2004 10: 45 EST Angelica Johnson MD PATHOLOGY ORDERABLES Performing Organization Address City/State/[facility] Co de Phone Number [facility] [address] [place] [address] documented in this encounter Visit Diagnoses Not on filedocumented in this encounter
--- OUTSIDE RECORDS SUMMARY | 2024-04-08 18:11 | XMS_ITS | Encounter Summary ---
Author Organization [facility] Address [address] [place] [address] Care Team Providers Care Lining Presser Name Role Phone Unavailable Primary Care Provider Unavailabl e Encounter Details Date Type Department Care Team (Late st Contact Info) Description 06/03/2002 Results Only [facility] - Maple conversion [address] [place] [address] Benji Parrish MD [address] [place] [address] Social History Tobacco Use Types [...] Priority Date/Time Associated Diagnosis Comments CYTOPATHOLOGY Routine 06/03/2002 0:00 EDT SURGICAL PATHOLOGY Routine 06/03/2002 0:00 EDT documented in this encounter Results * CYTOPATHOLOGY (06/03/2002 0:00 EDT) Pathology Report: CYTOPATHOLOGY REPORT Reports generated via electronic interface contain original data; however they are lacking the format of the original report. Caution should be taken when reading/interpreti ng unformatted reports. Name: ? HANNAH WONG ? Accession #: ? [id number] : ? 1965 (Age: 37) ??F ?Collect Date: ? 06/03/2002 Location: ? [facility] ? Receive Date: ? 06/05/2002 Provider: ?BENJI PARRISH MD Copy to: ? Specimen/Source: ?ThinPrep Pap Test, Cervix/Endocervix Last Menstrual Period: ? 05/13/02 ? SPECIMEN ADEQUACY ? Satisfactory for Evaluation - transformation zone component present GENERAL CATEGORIZATION ? Negative for Intraepithelial Lesion or Malignancy ? Document reviewed and electronically signed by: ? Edna Carver, ??SCT(ASCP) ? Report Date: ??06/10/2002 12:06 End of Report [facility] 06/03/2002 06/05/2002 Benji Parrish MD PATHOLOGY ORDERABLES Performing Organization Address City/State/[facility] Co de Phone Number [facility] [address] [place] [address] * SURGICAL PATHOLOGY (06/03/2002 0:00 EDT) Pathology Report: SURGICAL PATHOLOGY REPORT Reports generated via electronic interface contain original data; however they are lacking the format of the original report. Caution should be taken when reading/interpreti ng unformatted reports. Name: ? MARVIN, HANNAH S ? Accession #: ? [id number] ? : ? 1965 (Age: 37) ??F ? Collect Date: ? 06/03/2002 ? Location: ? [facility] ? Receive Date: ? 06/04/2002 ? Provider: BENJI PARRISH MD Copy to: IRMA العلي MD ? Final Pathologic Diagnosis: ? Endometrium, biopsy: 1. ?Fragments of inactive endometrium consistent with exogenous hormone effect. 2. ?Focal stromal breakdown. 3. ?Fragments of benign endocervical tissue. Document reviewed and electronically signed by: TENZIN NUNEZ MD Report ??Date: 06/05/2002 13:09 By the signature above, the attending physician certifies that he/she has personally conducted a gross and/or microscopic examination of the described specimens and rendered or confirmed the above diagnosis. Specimen(s) Received: ? Endo bx Clinical History: ? AUB; ??on control pills Gross Description: ? Received in formalin labelled Brink and endo bx are 1.0 x 1.0 x 0.2 cm of multiple, schilling-red, hemorrhagic, slightly mucoid, soft tissue fragments. ??The tissue is entirely submitted in one cassette. ??(Maria Del Rosario Triana)/dtl End of Report [facility] 06/03/2002 06/04/2002 15: 17 EDT Benji Parrish MD PATHOLOGY ORDERABLES [facility] [address] [place] [address] documented in this encounter Visit Diagnoses Not on filedocumented in this encounter
--- OUTSIDE RECORDS SUMMARY | 2024-04-08 18:11 | XMS_ITS | Encounter Summary ---
Author Organization [facility] Address [address] [place] [address] Care Team Providers Care Forest Ranger Technician Name Role Phone Unavailable Primary Care Provider Unavailabl e Encounter Details Date Type Department Care Team (Late st Contact Info) Description 11/13/2006 Results Only [facility] - Maple conversion [address] [place] [address] Angelica Johnson MD [address] [place] [address] [place] [address] Social History Tobacco Use Types Packs/Day Years Used Date Smoking Tobacco: Never Assessed Sex and Gender Information Value Date Recorded Sex Assigned at Not on file Gender Identity Not on file Sexual Orientation Not on file documented as of this encounter Plan of Treatment Not on file documented as of this encounter Procedures Procedure Name Priority Date/Time Associated Diagnosis Comments SURGICAL PATHOLOGY Routine 11/13/2006 0:00 EDT documented in this encounter Results * SURGICAL PATHOLOGY (11/13/2006 0:00 EDT) Pathology Report: SURGICAL PATHOLOGY REPORT Reports generated via electronic interface contain original data; however they are lacking the format of the original report. Caution should be taken when reading/interpreti ng unformatted reports. Name: ? HANNAH WONG ? Accession #: ? [id number] ? : ? 1965 (Age: 41) ??F ? Collect Date: ? 11/13/2006 ? Location: ? [facility] ? Receive Date: ? 11/13/2006 ? Provider: ANGELICA JOHNSON MD Copy to: PADDY العلي MD ? Final Pathologic Diagnosis: ? Endometrium, biopsy: 1. ?Inactive endometrium with features consistent with exogenous hormone effect. 2. ? No hyperplasia identified. Document reviewed and electronically signed by: MAGALY LINARES MD Report ??Date: 11/15/2006 16:09 By the signature above, the attending physician certifies that he/she has personally conducted a gross and/or microscopic examination of the described specimens and rendered or confirmed the above diagnosis. Specimen(s) Received: ? Endometrial bx Clinical History: ? Menometrorrhagia; taking Provera; LMP: 10/19/06 Gross Description: ? Received in formalin labelled Brink and endometrial bx are 1.5 x 1.0 x 0.3 cm of red-brown hemorrhagic tissue. The specimen is entirely submitted in one cassette following filtration. /wilver End of Report [facility] 11/13/2006 11/13/2006 5:0 2 EDT Angelica Johnson MD PATHOLOGY ORDERABLES [facility] [address] [place] [address] documented in this encounter Visit Diagnoses Not on filedocumented in this encounter
[2024-04-08 22:27] LABS: Folate 4.1 ng/mL (8.6-20.0); TSH (W/Ref FT4) 2.14 uIU/mL (0.36-3.74); Vitamin B12 276 pg/mL (193-986)
[2024-04-10 10:43] LABS: Lyme Ab w Rflx to Lyme Confirm Negative (Negative)
[2024-04-12 08:49] LABS: Anaplasma phagocytophilum Negative (Negative); B. miyamotoi PCR Negative (Negative); Babesia divergens/MO-1 Negative (Negative); Babesia duncani Negative (Negative); Babesia microti Negative (Negative); Ehrlichia chaffeensis Negative (Negative); Ehrlichia ewingii/canis Negative (Negative); Ehrlichia muris eauclairensis Negative (Negative)
== END 2024-04-08 18:06 | disposition home or self-care (01) ==
LOC: NCHCN 18:05
PROVIDERS: PCP Family Medicine; Visit Provider Family Medicine
DX: R20.3 Hyperesthesia (principal)
CPT/HCPCS: 87798; 82607; 82746; 84443; 86618

== ENCOUNTER 2024-08-07 15:51 | Outpatient (CLI) | payer MEDICARE, SELFPAY ==
--- NOTE | 2024-08-07 09:30 | DI.RAD_ITS ---
Exam(s) XR ANKLE RT 2V XR FOOT RT COMPLETE EXAM: XR ANKLE RT 2V CLINICAL HISTORY: eval R foot/ankle pain. TECHNIQUE: 2D digital imaging was performed. Three views of the foot and two views of the ankle. COMPARISON: CR XR FOOT RT COMPLETE from 08/04/2022 CR XR FOOT RT COMPLETE from 12/04/2022 MR LOWER JOINT RT WO from 06/25/2023 CR XR FOOT RT COMPLETE from 08/07/2024 FINDINGS: BONES: No acute fracture is present. No bony destructive lesion is seen. Prominent heel spurs. St able hardware at the talocalcaneal and calcaneal cuboid joints. Screw again noted in calcaneus. The bones appear demineralized. JOINTS: The ankle mortise is normally aligned. Degenerative changes at the tarsal metatarsal joints. Severe narrowing of talocalcaneal joint. SOFT TISSUE: Normal. IMPRESSION: Stable appearance of postsurgical and degenerative changes. DATA REPOSITORY: RADIATION DOSE DELIVERED:
--- NOTE | 2024-08-07 09:30 | DI.RAD_ITS ---
Exam(s) XR KNEE LT 3V AP,LAT,BLOSSOM EXAM: XR KNEE LT 3V AP,LAT,BLOSSOM CLINICAL HISTORY: eval L knee creiptus, anterior pain. TECHNIQUE: 2D digital imaging was performed. Three views. COMPARISON: CR XR KNEE LT 3V AP,LAT,BLOSSOM from 03/21/2021 FINDINGS: BONES: No acute fracture is present. No bony destructive lesion is seen. JOINTS: The knee prosthesis is normally aligned. A small joint effusion is seen. SOFT TISSUE: Surgical clips in medial soft tissues. IMPRESSION: Stable appearance of knee prosthesis. DATA REPOSITORY: RADIATION DOSE DELIVERED:
== END 2024-08-07 15:52 | disposition home or self-care (01) ==
LOC: DIORS 15:51
PROVIDERS: PCP Family Medicine; Referring Provider Family Medicine; Visit Provider Student in an Organized Health Care Education/Training Program
DX: M96.0 Pseudarthrosis after fusion or arthrodesis; M25.862 Other specified joint disorders, left knee; M76.71 Peroneal tendinitis, right leg; R63.4 Abnormal weight loss; S97.01XS Crushing injury of right ankle, sequela; S97.81XS Crushing injury of right foot, sequela
CPT/HCPCS: 20605; 73562; 99214; J1010; 73600; 73630

== ENCOUNTER 2024-08-22 20:35 | Outpatient (REF) | payer MEDICARE, SELFPAY ==
[2024-08-22 15:55] LABS: Abs Immature Grans 0.02 10^3/uL (0.0-0.06); Absolute Basophil Count 0.03 10^3/uL (0.0-0.2); Absolute Eosinophil Count 0.79 10^3/uL (0.0-0.7); Absolute Lymphocyte Count 1.26 10^3/uL (1.2-3.4); Absolute Monocyte Count 0.47 10^3/uL (0.1-0.8); Absolute Neutrophil Count 2.21 10^3/uL (1.2-6.7); Basophils % 0.6 %; Eosinophils % 16.5 %; HCT 41.7 % (36.0-46.0); HGB 13.8 g/dL (11.2-15.7); Immature Grans % 0.4 %; Lymphocytes % 26.4 %; MCH 28.3 pg (27.0-33.0); MCHC 33.1 % (32.0-36.0); MCV 86 fL (80-95); MPV 10.9 fL (8.0-11.0); Monocytes % 9.8 %; Neutrophils % 46.3 %; Platelet Count 205 10^3/uL (130-400); RBC 4.87 10^6/uL (3.93-5.22); RDW 12.9 % (11.7-14.6); RDW-SD 39.5 fL; WBC 4.78 10^3/uL (4.4-10.8)
[2024-08-22 16:22] LABS: Iron 52 ug/dL (50-170); Total Iron Binding Capacity 278 ug/dL (250-450); Transferrin Sat 19 % (15-50)
[2024-08-22 16:38] LABS: ALT 21 U/L (14-59); AST 21 U/L (15-37); Albumin 3.4 g/dL (3.4-5.0); Alkaline Phosphatase 102 U/L (46-116); Anion Gap 6.4 mmol/L (3-11); BUN 16 mg/dL (7-18); Bilirubin, Total 0.59 mg/dL (0.2-1.0); CO2 28.6 mmol/L (21.0-32.0); CREATININE 0.7 mg/dL (0.55-1.02); Calcium 8.9 mg/dL (8.5-10.1); Calculated LDL 121 mg/dL (<100); Chloride 108 mmol/L (98-107); Cholesterol 221 mg/dL (<200); Estimated GFR 98.34 (mL/min/1.73m2); Ferritin 32 ng/mL (8-252); Glucose 86 mg/dL (74-106); HDL Cholesterol 92 mg/dL (40-60); Potassium 3.8 mmol/L (3.5-5.1); Sodium 143 mmol/L (136-145); Total Protein 6.8 g/dL (6.4-8.2); Triglyceride 42 mg/dL (<150)
[2024-08-22 16:43] LABS: Folate > 20.0 ng/mL (8.6-20.0)
--- OUTSIDE RECORDS SUMMARY | 2024-08-22 20:49 | XMS_ITS | Encounter Summary ---
Author Organization [facility] [place] [address] Care Team Providers Care Product Technology Scientist Name Role Phone Avery Caballero MD Primary Care Provider [phone] Encounter Details Date Type Department Care Team (Latest Contact Info) Description 06/13/2022 11:48 AM EDT - 06/13/2022 11:59 PM EDT Hospital Encounter XRay at [address] [place] [address] Jacinda Benoit, ARTUR [facility] [place] [address] Status post ankle arthrodesis Discharge Disposition: Home [...] mouth 3 times daily. 60 capsule 06/13/2022 fluconazole (Diflucan) 150 mg Tablet Take one may repeat once 2 tablet 06/13/2022 ergocalciferoL, vitamin D2, (vitamin D2) 50,000 unit Capsule Take 1 capsule by mouth once a week. 12 capsule 3 04/03/2022 Symbicort 160-4.5 mcg/actuation HFA Aerosol Inhaler INHALE [...] (SUPER B COMPLEX ORAL) Take by mouth. Yqdsgbzioefja-Oj-Qxck-M inerals Tab Take by mouth. Women's one a day gummy cephALEXin (Keflex) 500 mg Capsule Take 1 capsule by mouth 4 times daily. 40 capsule 06/13/2022 08/04/2024 traMADoL (Ultram) 50 mg Tablet Take 50 mg by mouth as needed. 08/26/2021 08/04/2024 buPROPion XL (Wellbutrin XL) 150 mg Tablet Extended Release 24 hr 06/17/2021 06/21/2022 documented as of this encounter Plan of Treatment Upcoming Encounters Date Type Department Care Team (Latest Contact Info) Description 01/06/2025 7:30 AM EDT Hospital Encounter [place] [address] Frantz Caraballo MD [facility] [place] [address] 01/06/2025 7:30 AM EDT - 01/06/2025 12:15 PM EDT Surgery [place] [address] Frantz Caraballo MD [facility] [place] [address] EXCISION, SKIN AND SUB-Q TISSUE, ARM-HIRAL (WRVU 10.61) Scheduled Procedures Name Priority Associated Diagnoses Date/Ti me EXCISION, SKIN AND SUB-Q TIS XAVI, ARM-HIRAL (WRVU 10.61) Elastosis of skin 01/06/2025 7:30 AM EDT EXC EXCESSIVE SKIN & SUBQ TISSUE, OTHER AREA (WRVU 10.5) Elastosis of skin 01/06/2025 7:30 AM EDT documented as of this encounter Procedures Procedure [...] who have questions please contact the health family day carer that requested your imaging first. ? Narrative [...] patients who have questions please contactthe health family day carer that requested your imaging first. Jacinda Benoit ELECTRIC METER TESTER SHOP IMG DX ORDERABLES documented in this encounter Visit Diagnoses Diagnosis Status post ankle arthrodesis Other postprocedural status Elastosis of skin Other specified hypertrophic and atrophic condition of skin documented in this encounter Care Teams Product Technology Scientist Relationship Specialty Start Date End Date Avery Caballero MD [address] [place] [address] PCP - General 04/15/14 documented as of this encounter
--- OUTSIDE RECORDS SUMMARY | 2024-08-22 20:49 | XMS_ITS | Encounter Summary ---
[place] [address] Care Team Providers Care Systems Engineering Manager Name Role Phone Avery Caballero MD Primary Care Provider [phone] Encounter Details Date Type Department Care Team (Latest Contact Info) Description 08/04/2024 Travel Social History Tobacco Use Types Packs/Day [...] AM EDT Hospital Encounter [place] [address] Frantz Caraballo MD [facility] [place] [address] 01/06/2025 7:30 AM EDT - 01/06/2025 12:15 PM EDT Surgery [place] [address] Frantz Caraballo MD [facility] [place] [address] EXCISION, SKIN AND SUB-Q TISSUE, ARM-HIRAL (WRVU 10.61) Scheduled Procedures Name Priority Associated Diagnoses Date/Ti me EXCISION, SKIN AND SUB-Q TIS XAVI, ARM-HIRAL (WRVU 10.61) Elastosis of skin 01/06/2025 7:30 AM EDT EXC EXCESSIVE SKIN & SUBQ TISSUE, OTHER AREA (WRVU 10.5) Elastosis of skin 01/06/2025 7:30 AM EDT documented as of this encounter Visit Diagnoses Not on filedocumented in this encounter Care Teams Systems Engineering Manager Relationship Specialty Start Date End Date Avery Caballero MD [address] [place] [address] PCP - General 04/15/14 documented as of this encounter
--- OUTSIDE RECORDS SUMMARY | 2024-08-22 20:49 | XMS_ITS | Encounter Summary ---
[place] [address] Care Team Providers Care Clerk Carrier Name Role Phone Avery Caballero MD Primary Care Provider [phone] Encounter Details Date Type Department Care Team (Latest Contact Info) Description 07/28/2024 Travel Social History Tobacco Use Types Packs/Day [...] Hospital Encounter [place] [address] Frantz Caraballo MD [facility] [place] [address] 01/06/2025 7:30 AM EDT - 01/06/2025 12:15 PM EDT Surgery [place] [address] Frantz Caraballo MD [facility] [place] [address] EXCISION, SKIN AND SUB-Q TISSUE, ARM-HIRAL (WRVU [...] on filedocumented in this encounter Care Teams Clerk Carrier Relationship Specialty Start Date End Date vAery Caballero MD [address] [place] [address] PCP - General 04/15/14 documented as of this encounter
--- OUTSIDE RECORDS SUMMARY | 2024-08-22 20:49 | XMS_ITS | Encounter Summary ---
[place] [address] Care Team Providers Care In Flight Crew Member Name Role Phone Avery Caballero MD Primary Care Provider [phone] Reason for Referral * Diagnostic Test (Routine) - Closed Specialty Diagnoses / Procedures Referred By Contac t Referred To Contact Radiology Diagnoses Status post ankle arthrodesis Procedures CT Foot wo Contrast Right (Generic) Jacinda Beniot APRN [facility] [place] [address] [facility] [place] [address] Referral ID Status Reason Start Date Expiration Date V isits Requested Visits Authorized [id number] Closed Specialty Service Requested 05/16/2022 11/14/2023 1 1 Reason for Visit * Reason Comments Post Op DOS:05/04/2022 RIGHT A RTHRODESIS,MIDTARSAL(FARO) Encounter Details Date Type Department Care Team (Late st Contact Info) Description 05/16/2022 1:00 PM EDT Office [place] [address] Jacinda Benoit APRN [facility] [place] [address] Status post ankle arthrodesis (Primary Dx); Hx [...] in this encounter Progress Notes * Jacinda Benoit APRN - 05/16/2022 1:00 PM EDT PATIENT NAME: Hannah Ling AGE: 57 y.o. MR#: [id number] DATE OF VISIT: 05/16/2022 Date: 05/04/2022 ?? Surgeon: Yenifer Zimmer MD -?? Principal procedures: 1. Right foot [...] documented in this encounter Plan of Treatment Upcoming Encounters Date Type Department Care Team (Latest Contact Info) Description 01/06/2025 7:30 AM EDT Hospital Encounter [place] [address] Frantz Caraballo MD [facility] [place] [address] 01/06/2025 7:30 AM EDT - 01/06/2025 12:15 PM EDT Surgery [place] [address] Frantz Caraballo MD [facility] [place] [address] EXCISION, SKIN AND SUB-Q TISSUE, ARM-HIRAL (WRVU 10.61) Scheduled Procedures Name Priority Associated Diagnoses Date/Ti me EXCISION, SKIN AND SUB-Q TIS XAVI, ARM-HIRAL (WRVU 10.61) Elastosis of skin 01/06/2025 7:30 AM EDT EXC EXCESSIVE SKIN & SUBQ TISSUE, OTHER AREA (WRVU 10.5) Elastosis of skin 01/06/2025 7:30 AM EDT documented as of this encounter Results * [...] who have questions please contact the health home visit field care manager that requested your imaging first. ? Electronically signed by: Taisha Dunbar MD, [facility] ([phone]), at 06/28/2022 11:01 PM Narrative 06/28/2022 11:01 [...] patients who have questions please contactthe health home visit field care manager that requested your imaging first. Electronically signed by: Taisha Dunbar MD, [facility]([phone]), at 06/28/2022 11:01 PM Jacinda Beniot APRN IMG CT ORDERABLES * XR Foot [...] who have questions please contact the health home visit field care manager that requested your imaging first. ? Electronically signed by: Daniela Funes MD, [facility] ([phone]), at 06/13/2022 1:58 PM Narrative 06/13/2022 1:58 [...] patients who have questions please contactthe health home visit field care manager that requested your imaging first. Electronically signed by: Daniela Funes MD, [facility]([phone]), at 06/13/2022 1:58 PM Jacinda Benoit RN SPINE IMG DX ORDERABLES documented in this encounter [...] skin documented in this encounter Care Teams In Flight Crew Member Relationship Specialty Start Date End Date Avery Caballero MD [address] [place] [address] PCP - General 04/15/14 documented as of this encounter
--- OUTSIDE RECORDS SUMMARY | 2024-08-22 20:49 | XMS_ITS | Encounter Summary ---
[place] [address] Care Team Providers Care Vault Mechanic Name Role Phone Avery Caballero MD Primary Care Provider [phone] Encounter Details Date Type Department Care Team [...] AM EDT Hospital Encounter [place] [address] Frantz Caraballo MD [facility] [address] 01/06/2025 7:30 AM EDT - 01/06/2025 12:15 PM EDT Surgery [place] [address] Frantz Caraballo MD [facility] [place] [address] EXCISION, SKIN AND SUB-Q TISSUE, ARM-HIRAL (WRVU [...] on filedocumented in this encounter Care Teams Vault Mechanic Relationship Specialty Start Date End Date Avery Caballero MD [address] [place] [address] PCP - General 04/15/14 documented as of this encounter
--- OUTSIDE RECORDS SUMMARY | 2024-08-22 20:49 | XMS_ITS | Encounter Summary ---
Author Organization [facility] [place] [address] Care Team Providers Care Certification And Selection Specialist Name Role Phone Avery Caballero MD Primary Care Provider [phone] Encounter Details Date Type Department Care Team (Latest Contact Info) Description 05/16/2022 11:50 AM EDT - 05/16/2022 11:59 PM EDT Hospital Encounter XRay at [address] [place] [address] Jacinda Benoit, LINING SEWER [facility] [place] [address] Right foot pain; Status post ankle arthrodesis [...] (SUPER B COMPLEX ORAL) Take by mouth. Chjtzculzathw-Rc-Xhch-M inerals Tab Take by mouth. Women's one [...] needed for Pain. 10 tablet 05/04/2022 06/13/2022 traMADoL (Ultram) 50 mg Tablet Take 50 [...] AM EDT Hospital Encounter [place] [address] Frantz Caraballo MD [facility] [place] [address] 01/06/2025 7:30 AM EDT - 01/06/2025 12:15 PM EDT Surgery [place] [address] Frantz Caraballo MD [facility] [place] [address] EXCISION, SKIN AND SUB-Q TISSUE, ARM-HIRAL (WRVU [...] have questions please contact the health career resource specialist that requested your imaging first. ? Electronically signed by: Daniela Funes MD, [facility] ([phone]), at 05/16/2022 2:32 PM Narrative 05/16/2022 2:32 [...] who have questions please contactthe health career resource specialist that requested your imaging first. Electronically signed by: Daniela Funes MD, [facility]([phone]), at 05/16/2022 2:32 PM Jacinda Benoit LINING SEWER IMG DX ORDERABLES documented in this encounter Visit Diagnoses Diagnosis Right foot pain Pain in limb Status post ankle arthrodesis Other postprocedural status Elastosis of skin Other specified hypertrophic and atrophic condition of skin documented in this encounter Care Teams Certification And Selection Specialist Relationship Specialty Start Date End Date Avery Caballero MD [address] [place] [address] PCP - General 04/15/14 documented as of this encounter
--- OUTSIDE RECORDS SUMMARY | 2024-08-22 20:49 | XMS_ITS | Clinical Summary ---
Author Organization [facility] [place] [address] Care Team Providers Care Cell Tender Helper Name Role Phone Avery Caballero MD Primary Care Provider [phone] Allergies Active Allergy Reactions Criticality Noted Date [...] B COMPLEX ORAL) Take by mouth. Active Okdksobbetdyo-Hs-Sqh n-Minerals Tab Take by mouth. Women's one [...] BY MOUTH TWICE A DAY 04/07/2021 Active ergocalciferoL, vitamin D2, (vitamin D2) 50,000 unit Capsule Take 1 capsule by mouth once a week. 12 capsule 3 04/03/2022 Active venlafaxine (EFFEXOR-XR) 150 mg Capsule, Sust. Release 24 hr 05/02/2022 Active venlafaxine XR (Effexor-XR) 75 mg Capsule, Sust. Release 24 hr 05/01/2022 Active gabapentin (Neurontin) 100 mg Capsule Take 1 capsule by mouth 3 times daily. 60 capsule 06/13/2022 Active fluconazole (Diflucan) 150 mg [...] reflux disease 02/23/2012 Asthma 12/12/2011 Overview (05/16/2022): advair and singulair chronically, very rare use of albuterol Resolved Problems Problem Noted Date Diagnosed Date Resolved Date Breast hypertrophy 04/15/2014 5 Encounters Date Type Department Care Team Description 08/04/2024 10:00 AM EST Office [place] [address] Frantz Caraballo MD Elastosis of skin 08/04/2024 Travel 07/28/2024 Travel from Last 3 Months Family History Medical History Relation Comments Kidney [...] 06/21/2022 8:30 AM EDT Plan of Treatment Upcoming Encounters Date Type Department Care Team (Latest Contact Info) Description 01/06/2025 7:30 AM EDT Hospital Encounter [place] [address] Frantz Caraballo MD [facility] [place] [address] 01/06/2025 7:30 AM EDT - 01/06/2025 12:15 PM EDT Surgery [place] [address] Frantz Caraballo MD [facility] [place] [address] EXCISION, SKIN AND SUB-Q TISSUE, ARM-HIRAL (WRVU 10.61) Scheduled Procedures Name Priority Associated Diagnoses Date/Ti me EXCISION, SKIN AND SUB-Q TIS XAVI, ARM-HIRAL (WRVU 10.61) Elastosis of skin 01/06/2025 7:30 AM EDT EXC EXCESSIVE SKIN & SUBQ TISSUE, OTHER AREA (WRVU 10.5) Elastosis of skin 01/06/2025 7:30 AM EDT Health Maintenance Due Date Last Done Comments CT Colonography 1965 FIT DNA 1965 FIT 1965 Sigmoidoscopy 1965 HIV screen 1981 Hepatitis C Screening 1981 Lipid Screening 1981 Pneumococcal Vaccine: At-Ris k 5-64yrs (1 of 2 - PCV) 1982 Tetanus/Diphtheria/Pertussis Vaccines (1 - Tdap) 1982 HPV test 1993 PAP Smear 1993 Breast Cancer Share Decision Needed 2003 Breast Cancer screening 2003 Zoster vaccine (1 of 2) 2013 Diabetes Screening (HgbA1C or Glucose) 09/30/2017 Advance Directive 2018 RSV Vaccine (1 - Risk 60-74 years 1-dose series) 2023 Covid-19 Vaccine (1 - 2023- season) 2024 Influenza (Flu) vaccine (1 o f 1 - Influenza standard series) 05/04/2024 Colonoscopy 10/06/2024 10/06/2014, 10/06/2014 Colorectal Cancer Screening 10/06/2024 Sigmoidoscopy (10 year) with FIT yearly 10/06/2024 0 10/06/2014, 10/06/2014 Medical Devices Implanted Type Area Natural Gas Trader Device Identifier Shelf Expiration Date Model / Serial / Lot Graft Bone Filler 1cc Dbm Injectable Putty Allomatrix ([id number]) (Autoreq) - [id number] Implanted:Qty : 1 on 05/04/2022 by Yenifer Ellis MD at [facility] IMPLANTS Right: Foot [employer] - XEMAX SURG [id number] 09/13/2026 [id number] / [id number] / Screw 3.5x30mm Isidro Lck Ft Purple Ti Ortholoc 3di ([id number]) (Autoreq) - [id number] Implanted:Qty : 1 on 05/04/2022 by Yenifer Ellis MD at [facility] IMPLANTS Right: Foot [facility] [id number] / / Screw 3.5x36mm Isidro Nlck Ft Bronze Ti Ortholoc 3di ([id number]) (Autoreq) - [id number] Implanted:Qty : 1 on 05/04/2022 by Yenifer Ellis MD at [facility] IMPLANTS Right: Foot [facility] [id number] / / Graft Bone Filler 1cc Dbm Injectable Putty Allomatrix ([id number]) (Autoreq) - [id number] Implanted:Qty : 1 on 05/04/2022 by Yenifer Ellis MD at [facility] IMPLANTS Right: Foot [employer] - XEMAX SURG [id number] 09/13/2026 [id number] / [id number] / Graft Bone Filler Injectable 1.5cc Dbm Augment ([id number]) (Autoreq) - [id number] Implanted:Qty : 1 on 05/04/2022 by Yenifer Ellis MD at [facility] IMPLANTS Right: Foot [facility] [id number] 02/29/2024 [id number] / / [id number] Graft Bone Filler 7ich8-6da Dbm Freeze Dried Chips ([id number]) (Autoreq) - [id number] Implanted:Qty : 1 on 05/04/2022 by Yenifer Ellis MD at [facility] IMPLANTS Right: Foot [facility] [id number] 02/20/2027 CAN5 / [id number] / Suture [place] 5.5x15mm 2-0 Fiberwire Sdrill Ti Corkscrew ([id number]) - [id number] Implanted:Qty : 1 on 05/04/2022 by Yenifer Ellis MD at [facility] IMPLANTS Right: Foot [employer] [place] 03/02/2027 [id number] / / [id number] Plate Flat 6 Hole Comp Lck Ti Ortholoc 3di ([id number]) (Autoreq) - [id number] Implanted:Qty : 1 on 05/04/2022 by Yenifer Ellis MD at [facility] IMPLANTS Right: [facility] [id number] / / Screw 3.5x20mm Isidro Lck Ft Purple Ti Ortholoc 3di ([id number]) (Autoreq) - [id number] Implanted:Qty : 1 on 05/04/2022 by Yenifer Ellis MD at [facility] IMPLANTS Right: [facility] [id number] / / Screw 3.5x24mm Isidro Lck Ft Purple Ti Ortholoc 3di ([id number]) (Autoreq) - [id number] Implanted:Qty : 1 on 05/04/2022 by Yenifer Ellis MD at [facility] IMPLANTS Right: [facility] [id number] / / Screw 3.5x28mm Isidro Lck Ft Purple Ti Ortholoc 3di ([id number]) (Autoreq) - [id number] Implanted:Qty : 1 on 05/04/2022 by Yenifer Ellis MD at [facility] IMPLANTS Right: [facility] [id number] / / Procedures Procedure Name Priority Date/Time Associated Diagnosis Comments COLONOSCOPY Routine 10/06/2014 3:37 PM EST COMPREHENSIVE METABOLIC PANEL Routine 09/30/2014 5:07 PM EST Abdominal pain, RUQ (right upper quadrant) Abnormal CT scan from Last 3 Months or Most Recently Relevant to Health Maintenance Results * COLONOSCOPY (10/06/2014 3:37 PM EST) COLONOSCOPY [facility] Endoscopy Patient Name: Hannah Ling ? Procedure Date: 10/06/2014 3:37 PM ? Date of : 1965 ? Age: 49 ? Order #: [id number] ? Procedure: ? Colonoscopy Indications: ? Abdominal pain, thickened ascending ? colon on CT scan, anemia Providers: ? Bassem Norman MD, Guera Salmeron, ? RN, Murphy Eldridge, Family Support Specialist Referring : ?Avery Caballero MD, Yesenia Zuniga ? CHRISTINE [...] intervals supplied above were not validated at [facility]. Results from pediatric patients should be interpreted [...] the following links into your internet browser. [email or web address] Blood specimen (specimen) 09/30/2014 5:07 PM EST 09/30/2014 5:12 PM EST Narrative Resulting Agency Comment Spec In Lab Roly Goldstein MD CHEMISTRY ORDERABLES SENA SESAY from Last 3 Months or Most Recently [...] is based on Patients wishes. Care Teams Cell Tender Helper Relationship Specialty Start Date End Date Avery Caballero MD [address] [place] [address] PCP - General 04/15/14
--- OUTSIDE RECORDS SUMMARY | 2024-08-22 20:49 | XMS_ITS | Encounter Summary ---
[place] [address] Care Team Providers Care Tso Name Role Phone Avery Caballero MD Primary Care Provider [phone] Reason for Visit * Reason Comments Follow Up Surgery Wound check for righ t triple arthrodesis s/p subtalar screw removal, revision CC arthrodesis 05/04/22 Encounter Details Date Type Department Care Team (Latest Contact Info) Description 06/21/2022 8:30 AM EDT Office [place] [address] Yenifer Ellis MD [facility] [place] [address] Post-traumatic osteoarthritis of right ankle; Hx R [...] NAME: Hannah Ling AGE: 57 y.o. MR#: [id number] DATE OF VISIT: 06/21/2022 STAFF: Yenifer Ellis [...] screw removal, revision CC arthrodesis 05/04/22 (Dr. Elils) Z96.7 ??? Asthma J45.909 ??? Gastroesophageal reflux disease K21.9 PAST SURGICAL HX: Past Surgical History: Procedure Laterality Date ??? APPENDECTOMY ??? PRG UNLISTED DIAGNOSTIC GASTROENTEROLOGY PROCEDURE ??? PRO ADJ TISS XFER HEAD, FAC, HAND 10.1-30 Right 05/04/2022 ADJ.TISSUE TRANSFER, REARRANGEMENT, 10.1 TO 30 SQ.CM, FEET (WRVU 10.83) performed by Yenifer Ellis MD at [facility] ??? PRO BREAST REDUCTION Bilateral 07/23/2015 REDUCTION MAMMOPLASTY, HIRAL performed by Hiram Barrow MD at [facility] OR ??? PRO COLONOSCOPY, BIOPSY N/A 10/06/2014 COLONOSCOPY FLEXIBLE, WITH BX performed by Bassem Norman MD at [facility] ??? PRO EXCISE EXCESS SKIN TISSUE, ABDOMEN, ADD-ON 06/19/2014 ABDOMINOPLASTY EXC,W/ UMBILICAL TRANSPOSITION, FASCIAL PLICATION performed by Hiram Barrow MD at [facility] OR ??? PRO EXCISE EXCESS SKIN TISSUE, ARM Bilateral 07/23/2015 EXCISION, SKIN AND SUB-Q TISSUE, ARM-HIRAL performed by Hiram Barrow MD at [facility] OR ??? PRO EXCISE EXCESS SKIN TISSUE, THIGH 06/19/2014 EXCISION EXCESSIVE SKIN AND TISSUE-THIGH performed by Hiram Barrow MD at [facility] OR ??? PRO FUSION FOOT BONES, MIDTARSAL, MULTI Right 05/04/2022 ARTHRODESIS, MIDTARSAL OR TARSOMETATARSAL W/O OSTEOTOMY (WRVU 10.7) performed by Yenifer Ellis MD at [facility] ??? PRO REMOVAL DEEP IMPLANT Right 05/04/2022 REMOVAL OF IMPLANT, DEEP, FOOT (WRVU 5.96) performed by Yenifer Ellis MD at [facility] ??? PRO SUCT BERTO LIPECTOMY, LOW EXTREM 06/19/2014 SUCTION ASSISTED LIPECTOMY, LOWER EXTREMITY-HIRAL performed by Hiram Barrow MD at [facility] OR ??? PRO SUCT EBRTO LIPECTOMY, TRUNK Bilateral 07/23/2015 SUCTION ASSISTED LIPECTOMY,TRUNK performed by Hiram Barrow MD at [facility] OR ??? PRO UNLISTED CRANIO/MAXILLOFACIAL SURG ??? PRO UNLISTED PROCEDURE PHARYNX ADENOIDS/TONSILS ??? PRO UNLISTED PROCEDURE, MUSCULOSKELETAL SYSTEM, GENERAL ??? PRO UNLISTED PX FEMALE GEN SYS ??? PRO UPPER GI ENDOSCOPY, BIOPSY N/A 10/06/2014 EGD WITH BIOPSY performed by Bassem Norman MD at [facility] FAMILY HX: Family History Problem Relation [...] Household Income - # People Supported - [place]ian, , - Race - Health Literacy - [...] concerns. The above documentation was completed using [employer]ize voice recognition software. Yenifer Ellis MD Department of Orthopaedics [facility] Pager: [phone] documented in this encounter Plan of Treatment Upcoming Encounters Date Type Department Care Team (Latest Contact Info) Description 01/06/2025 7:30 AM EDT Hospital Encounter [place] [address] Frantz Caraballo MD [facility] [place] [address] 01/06/2025 7:30 AM EDT - 01/06/2025 12:15 PM EDT Surgery [place] [address] Frantz Caraballo MD [facility] [place] [address] EXCISION, SKIN AND SUB-Q TISSUE, ARM-HIRAL (WRVU [...] arthrodesis 05/04/22 (Dr. Ellis) Other postprocedural status Elastosis of skin Other specified hypertrophic and atrophic condition of skin documented in this encounter Care Teams Tso Relationship Specialty Start Date End Date Avery Caballero MD [address] [place] [address] PCP - General 04/15/14 documented as of this encounter
--- OUTSIDE RECORDS SUMMARY | 2024-08-22 20:49 | XMS_ITS | Encounter Summary ---
[place] [address] Care Team Providers Care Behavioral Sciences Instructor Name Role Phone Avery Caballero MD Primary Care Provider [phone] Reason for Visit * Reason Comments Follow Up Surgery R Midtarsal Arthrode sis 05/04/22 (FREDA) Encounter Details Date Type Department Care Team (Late st Contact Info) Description 06/13/2022 1:00 PM EDT Office [place] [phone] Jacinda Benoit APRN [facility] [place] [address] Hx R triple arthrodesis s/p subtalar screw [...] this encounter Progress Notes * Jacinda Benoit, PER DIEM RN - 06/13/2022 1:00 PM EDT Images from [...] Vitals: 06/13/22 1259 BP: 117/87 BP Location (NB): Left arm Patient Position: Sitting BP Cuff Sizes: Large Adult (32-43 cm) Pulse: 91 Resp: 14 Weight: 87.3 kg (192 lb 8 oz) Height: 149.9 cm (4' 11) Body mass index is 38.88 kg/m??. Ms. Sushil trujillo 57 y.o. female is alert and oriented.She [...] the patient. We recommended watchful waiting with aqua cell. See RN note for wound care. [...] AM EDT Hospital Encounter [place] [address] Frantz Caraballo MD [facility] [place] [address] 01/06/2025 7:30 AM EDT - 01/06/2025 12:15 PM EDT Surgery [place] [address] Frantz Caraballo MD [facility] [place] [address] EXCISION, SKIN AND SUB-Q TISSUE, ARM-HIRAL (WRVU [...] 05/04/22 (Dr. Ellis)- Primary Other postprocedural status Elastosis of skin Other specified hypertrophic and atrophic condition of skin documented in this encounter Care Teams Behavioral Sciences Instructor Relationship Specialty Start Date End Date Avery Caballero MD [address] [place] [address] PCP - General 04/15/14 documented as of this encounter
--- OUTSIDE RECORDS SUMMARY | 2024-08-22 20:49 | XMS_ITS | Encounter Summary ---
[place] [address] Care Team Providers Care Tube Bending Machine Operator Name Role Phone Avery Caballero MD Primary Care Provider [phone] Reason for Visit * Reason Onset Date Comments Appointment 06/29/2022 Encounter Details Date Type Department Care Team (Late st Contact Info) Description 06/29/2022 Telephone [place] [phone] Yenifer Ellis MD [facility] [place] [address] Appointment Social History Tobacco Use Types Packs/Day [...] 15 min ?? Yenifer Ellis MD [facility] [place] Please schedule for 15 min follow up visit in 6 weeks. ??WB foot films prior. * Telephone Encounter - Dasha Benoit - 06/29/2022 4:38 PM EDT Images from the original note were not included. LM#[email or web address] Please schedule Per below, can Schedule in Hold slot as long as it is 15 min Yenifer Ellis MD [facility] Man[employer] Development Specialist Manager Please schedule for 15 min follow up visit in 6 weeks. ??WB foot films prior. documented in this encounter Plan of Treatment Upcoming Encounters Date Type Department Care Team (Latest Contact Info) Description 01/06/2025 7:30 AM EDT Hospital Encounter [place] [address] Frantz Caraballo MD [facility] [place] [address] 01/06/2025 7:30 AM EDT - 01/06/2025 12:15 PM EDT Surgery [place] [address] Frantz Caraballo MD [facility] [address] EXCISION, SKIN AND SUB-Q TISSUE, ARM-HIRAL (WRVU [...] on filedocumented in this encounter Care Teams Tube Bending Machine Operator Relationship Specialty Start Date End Date Avery Caballero MD [address] [place] [address] PCP - General 04/15/14 documented as of this encounter
--- OUTSIDE RECORDS SUMMARY | 2024-08-22 20:49 | XMS_ITS | Encounter Summary ---
[place] [address] Care Team Providers Care Epitaxial Reactor Operator Name Role Phone Avery Caballero MD Primary Care Provider [phone] Encounter Details Date Type Department Care Team (Late st Contact Info) Description 05/04/2022 8:50 AM EDT - 05/04/2022 11:40 AM EDT Surgery Outpatient [place] [phone] Yenifer Ellis MD [facility] [place] [address] ARTHRODESIS, MIDTARSAL OR TARSOMETATARSAL W/O OSTEOTOMY (WRVU [...] closest emergency room or call the hospital microgrinder operator at [phone] and ask for physician combination saw operator covering for your physician. Questions or problems after 5pm or on a weekend: Call the [facility] microgrinder operator at and ask for the physician combination saw operator covering for your doctor. At 0800 am [...] after hours and ask for the anesthesiologist combination saw operator. There will still be some active ingredients [...] as much as possible. Call your doctor ([phone]) if you develop: Fever greater than 100.5 Severe nausea or vomiting Increasing pain that is not controlled by pain medications Increasing redness, swelling, or drainage from incisions Change in sensation FOLLOW-UP APPOINTMENTS: 1. You will have follow-up appointments at [facility] as indicated below in Future Appointment and Orders. 2. You will need to have x-rays prior to your follow-up appointment listed below. Please come to Radiology, desk 3T, 1 hour BEFORE that appointment for these x-rays. Future Appointments Date Time Provider Department Center 05/16/2022 12:00 PM [facility] DX ROOM 2 Xray [facility] Rad 05/16/2022 1:00 PM Jacinda Benoit, BDR [facility] ORTH [address] [place] [address] If you have questions or concerns: Sunday [...] (SUPER B COMPLEX ORAL) Take by mouth. Hwerfptwefjks-Nh-Zlfp-M inerals Tab Take by mouth. Women's one [...] ARM-HIRAL performed by Hiram Barrow MD at [facility] OR ??? PRO EXCISE EXCESS SKIN TISSUE, THIGH 06/19/2014 EXCISION EXCESSIVE SKIN AND TISSUE-THIGH performed by Hiram Barrow MD at [facility] MAIN OR ??? PRO REDUCTION OF LARGE BREAST Bilateral 07/23/2015 REDUCTION MAMMOPLASTY, HIRAL performed by Hiram Barrow MD at [facility] MAIN OR ??? PRO SUCT BERTO LIPECTOMY, LOW EXTREM 06/19/2014 SUCTION ASSISTED LIPECTOMY, LOWER EXTREMITY-HIRAL performed by Hiram Barrow MD at [facility] OR ??? PRO SUCT BERTO LIPECTOMY, TRUNK Bilateral 07/23/2015 SUCTION ASSISTED LIPECTOMY,TRUNK performed by Hiram Barrow MD at [facility] OR ??? PRO UNLISTED CRANIO/MAXILLOFACIAL SURG ??? PRO UNLISTED PROCEDURE PHARYNX ADENOIDS/TONSILS ??? PRO UNLISTED PROCEDURE, MUSCULOSKELETAL SYSTEM, GENERAL ??? PRO UNLISTED PX FEMALE GEN SYS ??? PRO UPPER GI ENDOSCOPY, BIOPSY N/A 10/06/2014 EGD WITH BIOPSY performed by Bassem [facility] MD at [facility] ENDOSCOPY Home Medications: Medications Prior to [...] B COMPLEX ORAL) Take by mouth. ??? Wqfbilzgknvqb-Ih-Wkua-Minerals Tab Take by mouth. Women's one a [...] Patient Pharmacy for outpatient medications: Tramadol to [facility] in [facility]. ASA 81 mg daily for DVT proph documented in this encounter Miscellaneous Notes * Brief Op Note - Philip Pickard MD - 05/04/2022 12:06 PM EDT Brief Operative Note Patient Name: Hannah Ling : [id number] MR#: [id number] Case Date: 05/04/2022 Surgeon: Surgeon(s) and Role: [...] Ellis MD - 05/04/2022 9:20 AM EDT [facility] Operative Note Patient Name: Hannah Ling : [id number] MR#: [id number] Case Date: 05/04/2022 Surgeon: Surgeon(s) and Role: [...] to remove the screws with a cannulated putaway driver. After identifying that this was a too large cannulated putaway driver, we adjusted appropriately and were able [...] Implant Name Type Inv. Item Serial No. Wiring Technician Lot No. LRB No. Used Action GRAFT BONE FILLER 1CC DBM INJECTABLE PUTTY ALLOMATRIX ([id number]) (AUTOREQ) - [id number] IMPLANTS GRAFT BONE FILLER 1CC DBM INJECTABLE PUTTY ALLOMATRIX ([id number]) (AutoReq) [id number] [employer] - [employer]AX SURG Right 1 Implanted GRAFT BONE FILLER 1CC DBM INJECTABLE PUTTY ALLOMATRIX ([id number]) (AUTOREQ) - [id number] IMPLANTS GRAFT BONE FILLER 1CC DBM INJECTABLE PUTTY ALLOMATRIX (0266386) (AutoReq) [id number] [employer] - [employer] SURG Right 1 Implanted GRAFT BONE FILLER INJECTABLE 1.5CC DBM AUGMENT ([id number]) (AUTOREQ) - [id number] IMPLANTS GRAFT BONEFILLER INJECTABLE 1.5CC DBM AUGMENT ([id number]) (AutoReq) [facility] [id number] Right 1 Implanted GRAFT BONE FILLER [id number] DBM FREEZE DRIED CHIPS (4393554) (AutoReq) - [id number] IMPLANTS GRAFT BONE FILLER [id number] DBM FREEZE DRIED CHIPS (6555032) (AutoReq) [id number] [facility] Right 1 Implanted SUTURE ANCHOR 5.5X15MM 2-0 FIBERWIRE SDRILL TI CORKSCREW ([id number]) - [id number] IMPLANTS SUTURE ANCHOR 5.5X15MM 2-0 FIBERWIRE SDRILL TI CORKSCREW ([id number]) [employer] [place] [id number] Right 1 Implanted PLATE FLAT 6 HOLE COMP LCK TI ORTHOLOC 3DI (6814540) (AutoReq) - [id number] IMPLANTS PLATE FLAT 6 HOLE COMP LCK TI ORTHOLOC 3DI ([id number]) (AutoReq) [facility] Right 1 Implanted SCREW 3.5X20MM MICHAEL LCK FT PURPLE TI ORTHOLOC 3DI ([id number]) (AutoReq) - [id number] IMPLANTS SCREW 3.5X20MM MICHAEL LCK FT PURPLE TI ORTHOLOC 3DI ([id number]) (AutoReq) [facility] Right 1 Implanted SCREW 3.5X24MM MICHAEL LCK FT PURPLE TI ORTHOLOC 3DI ([id number]) (AutoReq) - [id number] IMPLANTS SCREW 3.5X24MM MICHAEL LCK FT PURPLE TI ORTHOLOC 3DI ([id number]) (AutoReq) [facility] Right 1 Implanted SCREW 3.5X28MM MICHAEL LCK FT PURPLE TI ORTHOLOC 3DI ([id number]) (AutoReq) - [id number] IMPLANTS SCREW 3.5X28MM MICHAEL LCK FT PURPLE TI ORTHOLOC 3DI ([id number]) (AutoReq) [facility] Right 1 Implanted SCREW 3.5X30MM MICHAEL LCK FT PURPLE TI ORTHOLOC 3DI ([id number]) (AutoReq) - [id number] IMPLANTS SCREW 3.5X30MM MICHAEL LCK FT PURPLE TI ORTHOLOC 3DI ([id number]) (AutoReq) [facility] Right 1 Implanted SCREW 3.5X36MM MICHAEL NLCK FT BRONZE TI ORTHOLOC 3DI ([id number]) (AutoReq) - [id number] IMPLANTS SCREW 3.5X36MM MICHAEL NLCK FT BRONZE TI ORTHOLOC 3DI ([id number]) (AutoReq) [facility] Right 1 Implanted Surgical Infection Prevention Bundle Used? No Attestation: Case Date: 05/04/2022 I was present and I participated during the entire procedure (does not need to include opening and closing). Yenifer Ellis MD 05/04/2022 documented in this encounter Plan of Treatment Upcoming Encounters Date Type Department Care Team (Latest Contact Info) Description 01/06/2025 7:30 AM EDT Hospital Encounter [place] [address] Frantz Caraballo MD [facility] [place] [address] 01/06/2025 7:30 AM EDT - 01/06/2025 12:15 PM EDT Surgery [place] [address] Frantz Caraballo MD [facility] [place] [address] EXCISION, SKIN AND SUB-Q TISSUE, ARM-HIRAL (WRVU [...] Adj Tiss Transfer Head, Fac, Hand 10.1-30 (85635) 05/04/2022 9:00 AM EDT Nonunion after arthrodesis Removal Deep Implant ([id number]) 05/04/2022 9:00 AM EDT Nonunion after arthrodesis Fusion Foot Bones, Midtarsal, Multi (00994) 05/04/2022 9:00 AM EDT Nonunion after arthrodesis [...] EDT) Anaerobic Culture No anaerobic organisms isolated [facility] Excision Site STRUCTURE OF RIGHT FOOT / Unknown 05/04/2022 10:07 AM EDT 05/04/2022 1:58 PM EDT Comment:Right CC (calcaneal) non-union Narrative Resulting Agency Comment Spec In Lab Yenifer Ellis MD MICROBIOLOGY - GENER AL ORDERABLES Performing Organization Address City/[facility]/ZIP Co de Phone Number [facility] [place] [address] * Abscess/Wound Aspirate Culture (05/04/2022 10:07 AM EDT) Abscess/Wound Aspirate Culture No growth [facility] Gram Stain No Neutrophils No microorganisms seen. [facility] Excision Site STRUCTURE OF RIGHT FOOT / Unknown 05/04/2022 10:07 AM EDT 05/04/2022 1:58 PM EDT Comment:Right CC (calcaneal) non-union Narrative Resulting Agency Comment Spec In Lab Yenifer Ellis MD MICROBIOLOGY - GENER AL ORDERABLES Performing Organization Address City/[facility] Co de Phone Number [facility] [place] [address] documented in this encounter Visit Diagnoses Diagnosis Hx R triple arthrodesis s/p subtalar screw removal, revision CC arthrodesis 05/04/22 (Dr. 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
--- OUTSIDE RECORDS SUMMARY | 2024-08-22 20:49 | XMS_ITS | Encounter Summary ---
[place] [address] Care Team Providers Care Enterprise Sales Person Name Role Phone Avery Caballero MD Primary Care Provider [phone] Encounter Details Date Type Department Care Team (Latest Contact Info) Description 05/11/2022 11:30 AM EDT Office [place] [phone] Nonunion after arthrodesis; Status post ankle arthrodesis; [...] AM EDT Hospital Encounter [place] [address] Frantz Caraballo MD [facility] [place] [address] 01/06/2025 7:30 AM EDT - 01/06/2025 12:15 PM EDT Surgery [place] [phone] Frantz Caraballo MD [facility] [place] [address] EXCISION, SKIN AND SUB-Q TISSUE, ARM-HIRAL (WRVU [...] postprocedural status 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
--- OUTSIDE RECORDS SUMMARY | 2024-08-22 20:49 | XMS_ITS | Encounter Summary ---
Author Organization [facility] [place] [address] Care Team Providers Care Strategic Manager Name Role Phone Avery Caballero MD Primary Care Provider [phone] Encounter Details Date Type Department Care Team (Late st Contact Info) Description 05/05/2022 Telephone [place] [phone] Jacinda Benoit APRN [facility] [place] [address] Social History Tobacco Use Types Packs/Day Years [...] AM EDT Hospital Encounter [place] [address] Frantz Caraballo MD [facility] [place] [address] 01/06/2025 7:30 AM EDT - 01/06/2025 12:15 PM EDT Surgery [place] [address] Frantz Caraballo MD [facility] [place] [address] EXCISION, SKIN AND SUB-Q TISSUE, ARM-HIRAL (WRVU [...] have questions please contact the health rn long term care that requested your imaging first. ? Electronically signed by: Daniela Funes MD, [facility] ([phone]), at 05/16/2022 2:32 PM Narrative 05/16/2022 2:32 [...] who have questions please contactthe health rn long term care that requested your imaging first. Electronically signed by: Daniela Funes MD, [facility]([phone]), at 05/16/2022 2:32 PM Jacinda Benoit APRN IMG DX ORDERABLES documented in this encounter Visit Diagnoses Diagnosis Right foot pain Pain in limb Status post ankle arthrodesis Other postprocedural status Right foot pain Pain in limb Status post ankle arthrodesis Other postprocedural status Elastosis of skin Other specified hypertrophic and atrophic condition of skin documented in this encounter Care Teams Strategic Manager Relationship Specialty Start Date End Date Avery Caballero MD [address] [place] [address] PCP - General 04/15/14 documented as of this encounter
--- OUTSIDE RECORDS SUMMARY | 2024-08-22 20:49 | XMS_ITS | Encounter Summary ---
[place] [address] Care Team Providers Care Business Unit Manager Name Role Phone Avery Caballero MD Primary Care Provider [phone] Reason for Referral * Diagnostic Test (Routine) - Closed Specialty Diagnoses / Procedures Referred By Contac t Referred To Contact Radiology Diagnoses Status post ankle arthrodesis Procedures CT Foot wo Contrast Right (Generic) Jacinda Benoit APRN [facility] [place] [address] [facility] [place] [address] Referral ID Status Reason Start Date Expiration Date V isits Requested Visits Authorized [id number] Closed Specialty Service Requested 05/16/2022 11/14/2023 1 1 Reason for Visit * Diagnostic Test (Routine) - Closed Specialty Diagnoses / Procedures Referred By Contac t Referred To Contact Radiology Diagnoses Status post ankle arthrodesis Procedures CT Foot wo Contrast Right (Generic) Jacinda Benoit APRN [facility] [place] [address] [facility] [place] [address] Referral ID Status Reason Start Date Expiration Date V isits Requested Visits Authorized [id number] Closed Specialty Service Requested 05/16/2022 11/14/2023 1 1 Encounter Details Date Type Department Care Team (Latest Contact Info) Description 06/28/2022 10:41 AM EDT - 06/28/2022 11:59 PM EDT Hospital [place] [address] Jacinda Benoit APRN [facility] DR [place] [address] Status post ankle arthrodesis Discharge Disposition: Home [...] (SUPER B COMPLEX ORAL) Take by mouth. Bwqrpkfbmfkbg-Tv-Zvxw-M inerals Tab Take by mouth. Women's one a day gummy cephALEXin (Keflex) 500 mg Capsule Take 1 capsule by mouth 4 times daily. 40 capsule 06/13/2022 08/04/2024 traMADoL (Ultram) 50 mg Tablet Take 50 mg by mouth as needed. 08/26/2021 08/04/2024 documented as of this encounter Plan of Treatment Upcoming Encounters Date Type Department Care Team (Latest Contact Info) Description 01/06/2025 7:30 AM EDT Hospital Encounter [place] [address] Frantz Caraballo MD [facility] [place] [address] 01/06/2025 7:30 AM EDT - 01/06/2025 12:15 PM EDT Surgery [place] [address] Frantz Caraballo MD [facility] [place] [address] EXCISION, SKIN AND SUB-Q TISSUE, ARM-HIRAL (WRVU [...] who have questions please contact the health healthcare social worker that requested your imaging first. ? Narrative 06/28/2022 11:01 PM EDT EXAMINATION: CT [...] patients who have questions please contactthe health healthcare social worker that requested your imaging first. Jacinda Benoit PERSONAL ASSISTANT IMG CT ORDERABLES documented in this encounter Visit Diagnoses Diagnosis Status post ankle arthrodesis Other postprocedural status Elastosis of skin Other specified hypertrophic and atrophic condition of skin documented in this encounter Care Teams Business Unit Manager Relationship Specialty Start Date End Date Avery Caballero MD [address] [place] [address] PCP - General 04/15/14 documented as of this encounter
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
--- OUTSIDE RECORDS SUMMARY | 2024-08-22 20:50 | XMS_ITS | Encounter Summary ---
Author Organization [facility] [place] [address] Care Team Providers Care Locomotive Observer Name Role Phone Avery Caballero MD Primary Care Provider [phone] Encounter Details Date Type Department Care Team (Late st Contact Info) Description 10/18/2020 Ancillary Procedure Radiology Library at [facility] [place] [address] Yenifer Ellis MD [facility] [place] [address] Social History Tobacco Use Types Packs/Day Years [...] AM EDT Hospital Encounter Main Operating Room [facility] [place] [phone] Frantz Caraballo MD [facility] [place] [address] 01/06/2025 7:30 AM EDT - 01/06/2025 12:15 PM EDT Surgery [place] [address] Frantz Caraballo MD [facility] [place] [address] EXCISION, SKIN AND SUB-Q TISSUE, ARM-HIRAL (WRVU [...] DX Foot (10/18/2020 12:00 AM EST) Narrative [facility] - 07/21/2021 3:14 PM EST This exam is auto-finalizing. It's purpose is for storage only. Yenifer Ellis MD IMG FILM LIBRARY ORD ERABLES [place], [place] documented in this encounter Visit Diagnoses Not on filedocumented in this encounter Care Teams Locomotive Observer Relationship Specialty Start Date End Date Avery Caballero MD [address] [place] [address] PCP - General 04/15/14 documented as of this encounter
--- OUTSIDE RECORDS SUMMARY | 2024-08-22 20:50 | XMS_ITS | Encounter Summary ---
Author Organization [facility] [place] [address] Care Team Providers Care Contract Specialist Name Role Phone Avery Caballero MD Primary Care Provider [phone] Reason for Referral * Diagnostic Test (Routine) - Closed Specialty Diagnoses / Procedures Referred By Contac t Referred To Contact Radiology Diagnoses Right foot pain Status post ankle arthrodesis Vitamin D deficiency Procedures CT Ankle wo Contrast Right (Generic) Yenifer Ellis MD [facility] DR [place] [address] [facility] [place] [address] Referral ID Status Reason Start Date Expiration Date V isits Requested Visits Authorized [id number] Closed Specialty Service Requested 09/23/2021 03/23/2023 1 1 Reason for Visit * Diagnostic Test (Routine) - Closed Specialty Diagnoses / Procedures Referred By Contac t Referred To Contact Radiology Diagnoses Right foot pain Status post ankle arthrodesis Vitamin D deficiency Procedures CT Ankle wo Contrast Right (Generic) Yenifer Ellis MD [facility] [place] [address] [facility] [place] [address] Referral ID Status Reason Start Date Expiration Date V isits Requested Visits Authorized [id number] Closed Specialty Service Requested 09/23/2021 03/23/2023 1 1 Encounter Details Date Type Department Care Team (Latest Contact Info) Description 09/23/2021 1:36 PM EST - 09/23/2021 11:59 PM EST Hospital [place] [address] Yenifer Ellis MD [facility] DR [place] [address] Right foot pain; Status post [...] Sig Dispensed Refills Start Date End Date Symbicort 160-4.5 mcg/actuation HFA Aerosol Inhaler INHALE [...] (SUPER B COMPLEX ORAL) Take by mouth. Lgtegacvwtvde-Yr-Jnmo-M inerals Tab Take by mouth. Women's one a day gummy ergocalciferoL, vitamin D2, (vitamin D2) 50,000 unit Capsule Take 1 capsule by mouth once a week. 12 capsule 3 09/25/2021 04/03/2022 traMADoL (Ultram) 50 mg Tablet Take [...] AM EDT Hospital Encounter [place] [address] Frantz Caraballo MD [facility] [place] [address] 01/06/2025 7:30 AM EDT - 01/06/2025 12:15 PM EDT Surgery [place] [address] Frantz Caraballo MD [facility] [place] [address] EXCISION, SKIN AND SUB-Q TISSUE, ARM-HIRAL (WRVU [...] who have questions please contact the health child care sitter that requested your imaging first. ? Electronically signed by: Taisha Dunbar MD, [facility] ([phone]), at 09/23/2021 4:01 PM Narrative 09/23/2021 4:01 [...] HISTORY: evaluate [facility] hindfoot fusion[facility] TECHNIQUE: 0.63 mm non-contrast axial CT images [...] patients who have questions please contactthe health child care sitter that requested your imaging first. Electronically signed by: Taisha Dunbar MD, [facility]([phone]), at 09/23/2021 4:01 PM Yenifer Ellis MD IMG CT ORDERABLES documented in this encounter Visit Diagnoses Diagnosis Right foot pain Pain in limb Status post ankle arthrodesis Other postprocedural status Vitamin D deficiency Unspecified vitamin D deficiency Elastosis of skin Other specified hypertrophic and atrophic condition of skin documented in this encounter Care Teams Contract Specialist Relationship Specialty Start Date End Date Avery Caballero MD [address] [place] [address] PCP - General 04/15/14 documented as of this encounter
--- OUTSIDE RECORDS SUMMARY | 2024-08-22 20:50 | XMS_ITS | Encounter Summary ---
[place] [address] Care Team Providers Care Family Law Legal Assistant Name Role Phone Avery Caballero MD Primary Care Provider [phone] Encounter Details Date Type Department Care Team (Late st Contact Info) Description 05/04/2022 8:59 AM EDT Anesthesia Event Outpatient [place] [address] Mandi Robb MD [facility] [place] [address] Anesthesia Record Procedure Summary Procedure Name Responsible [...] fr. spencer drain 07/23/15 0000 by Nydia Fotnana RN Drain/Device Site 07/23/15; Left; axil la; collapsible closed device; 15 fr spencer drain 07/23/15 0000 by Nydia Fontana RN Drain/Device Site 07/23/15; Right; axilla; collapsible closed device; 15 fr spencer 07/23/15 0000 by Nydia Fontana, RN Incision 05/04/22; 919; Righ t; foot 05/04/22 09 by Cici Corral RN (RETIRED) Peripheral IV Line - Single Lumen 05/04/22; 08; metacarpal vein (top of hand), left; ddif-xcm-brqdhp catheter system; Anatomical Landmarks; 22 gauge; distraction; [...] Procedure Summary Date: 05/04/22 Room / Location: [facility] OR [address] [place] [address] Anesthesia Start: 858 Anesthesia Stop: 120 Procedures: ARTHRODESIS, MIDTARSAL OR TARSOMETATARSAL W/O OSTEOTOMY (WRVU 10.7) (Right Ankle) REMOVAL OF IMPLANT, DEEP, FOOT (WRVU 5.96) (Right Foot) ADJ.TISSUE TRANSFER, REARRANGEMENT, 10.1 TO 30 SQ.CM, FEET (WRVU 10.83) (Right Foot) 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 Patient Location: PACU/[facility] Level of Consciousness: Awake and Alert Pain [...] 10cc at saphenous Staff: Attending Physician:: Mandi Robb MD * Anesthesia Preprocedure Evaluation - Mandi [...] BX performed by Bassem Norman MD at [facility] ??? PRO EXCISE EXCESS SKIN TISSUE, ABDOMEN, ADD-ON 06/19/2014 ABDOMINOPLASTY EXC,W/ UMBILICAL TRANSPOSITION, FASCIAL PLICATION performed by Hiram Barrow MD at [facility] MA[facility] OR ??? PRO EXCISE EXCESS SKIN TISSUE, ARM Bilateral 07/23/2015 EXCISION, SKIN AND SUB-Q TISSUE, ARM-HIRAL performed by Hiram Barrow MD at [facility] OR ??? PRO EXCISE EXCESS SKIN TISSUE, THIGH 06/19/2014 EXCISION EXCESSIVE SKIN AND TISSUE-THIGH performed by Hiram Barrow MD at [facility] OR ??? PRO REDUCTION OF LARGE BREAST Bilateral 07/23/2015 REDUCTION MAMMOPLASTY, HIRAL performed by Hiram Barrow MD at [facility] OR ??? PRO SUCT BERTO LIPECTOMY, LOW EXTREM 06/19/2014 SUCTION ASSISTED LIPECTOMY, LOWER EXTREMITY-HIRAL performed by Hiram Barrow MD at [facility] OR ??? PRO SUCT BERTO LIPECTOMY, TRUNK Bilateral 07/23/2015 SUCTION ASSISTED LIPECTOMY,TRUNK performed by Hiram Barrow MD at [facility] OR ??? PRO UNLISTED CRANIO/MAXILLOFACIAL SURG ??? PRO UNLISTED PROCEDURE PHARYNX ADENOIDS/TONSILS ??? PRO UNLISTED PROCEDURE, MUSCULOSKELETAL SYSTEM, GENERAL ??? PRO UNLISTED PX FEMALE GEN SYS ??? PRO UPPER GI ENDOSCOPY, BIOPSY N/A 10/06/2014 EGD WITH BIOPSY performed by Bassem Norman MD at [facility] Social History Tobacco Use ??? [...] with patient. Plan discussed with attending and SOIL SURVEYOR. Anesthesia Screening documented in this encounter Plan of Treatment Upcoming Encounters Date Type Department Care Team (Latest Contact Info) Description 01/06/2025 7:30 AM EDT Hospital Encounter [place] [address] Frantz Caraballo MD [facility] [place] [address] 01/06/2025 7:30 AM EDT - 01/06/2025 12:15 PM EDT Surgery [place] [address] Frantz Caraballo MD [facility] [address] EXCISION, SKIN AND SUB-Q TISSUE, ARM-HIRAL (WRVU [...] Physician:: ??Mandi Robb MD Mandi Robb MD GIFT MANAGER [facility] S documented in this encounter Visit Diagnoses [...] mLs documented in this encounter Care Teams Family Law Legal Assistant Relationship Specialty Start Date End Date Avery Caballero MD [address] [place] [address] PCP - General 04/15/14 documented as of this encounter
--- OUTSIDE RECORDS SUMMARY | 2024-08-22 20:50 | XMS_ITS | Encounter Summary ---
[place] [address] Care Team Providers Care Computer Repair Technician Name Role Phone Avery Caballero MD Primary Care Provider [phone] Reason for Visit * Reason Comments Follow Up Surgery s/p brachioplasty an d bbr dos 07/23 Encounter Details Date Type Department Care Team (Late st Contact Info) Description 09/30/2015 3:45 PM EST Office [place] [phone] Hiram Nascimento MD S/P bilateral breast reduction Social History Tobacco [...] minute appointment to discuss revisions to abdominoplasty IHannah, marquis acting as scribe for Dr Nascimento. All work documented was performed by Dr Nascimento. ???I performed the above scribed service and agree with the accuracy of the note?? HIRAM NASCIMENTO MD documented in this encounter Plan of Treatment Upcoming Encounters Date Type Department Care Team (Latest Contact Info) Description 01/06/2025 7:30 AM EDT Hospital Encounter [place] [address] Frantz Caraballo MD [facility] [place] [address] 01/06/2025 7:30 AM EDT - 01/06/2025 12:15 PM EDT Surgery [place] [address] Frantz Caraballo MD [facility] [place] [address] EXCISION, SKIN AND SUB-Q TISSUE, ARM-HIRAL (WRVU [...] S/P bilateral breast reduction Other postprocedural status Elastosis of skin Other specified hypertrophic and atrophic condition of skin documented in this encounter Care Teams Computer Repair Technician Relationship Specialty Start Date End Date Avery Caballero MD [address] [place] [address] PCP - General 04/15/14 documented as of this encounter
--- OUTSIDE RECORDS SUMMARY | 2024-08-22 20:50 | XMS_ITS | Encounter Summary ---
Author Organization [facility] [place] [address] Care Team Providers Care Hospitality Team Member Name Role Phone Avery Caballero MD Primary Care Provider [phone] Encounter Details Date Type Department Care Team (Late st Contact Info) Description 01/24/2021 12:05 AM EDT Ancillary Procedure Radiology Library at [facility] [place] [phone] Yenifer Ellis MD [facility] [place] [address] Social History Tobacco Use Types Packs/Day Years [...] AM EDT Hospital Encounter Main Operating Room [facility] [place] [address] Frantz Caraballo MD [facility] [place] [address] 01/06/2025 7:30 AM EDT - 01/06/2025 12:15 PM EDT Surgery [place] [address] Frantz Caraballo MD [facility] [place] [address] EXCISION, SKIN AND SUB-Q TISSUE, ARM-HIRAL (WRVU [...] DX Ankle (01/24/2021 12:05 AM EDT) Narrative [facility] - 07/21/2021 3:21 PM EST This exam is auto-finalizing. It's purpose is for storage only. Yenifer Ellis MD IMG FILM LIBRARY ORD ERABLES [place], [place] documented in this encounter Visit Diagnoses Not on filedocumented in this encounter Care Teams Hospitality Team Member Relationship Specialty Start Date End Date Avery Caballero MD [address] [place] [address] PCP - General 04/15/14 documented as of this encounter
--- OUTSIDE RECORDS SUMMARY | 2024-08-22 20:50 | XMS_ITS | Encounter Summary ---
Author Organization [facility] [place] [address] Care Team Providers Care Mathematics Instructor Name Role Phone Avery Caballero MD Primary Care Provider [phone] Reason for Visit * Reason Comments Wound Check Encounter Details Date Type Department Care Team (Late st Contact Info) Description 12/18/2015 2:00 PM EDT - 12/18/2015 6:33 PM EDT [place] [address] Gabriel Valiente MD [facility] [place] [address] Ulcer of skin of breast (Primary Dx) [...] (SUPER B COMPLEX ORAL) Take by mouth. Eohznjwqnhziy-Uc-Thl n-Minerals Tab Take by mouth. Women's one [...] drainage. Denies fevers athome. Pain with movement 12/11 which is unusual for her. Sent by [...] verbalized understanding. Tri Panda MD Resident 12/18/15 7353 ED ATTENDING ADDENDUM: The patient was seen in conjunction with Dr. Panda, the resident physician. I have independently performed the tain portions of the history and physical exam. [...] PLICATION performed by Hiram Barrow MD at [facility] OR ??? Pro excise excess skin tissue, thigh 06/19/2014 EXCISION EXCESSIVE SKIN AND TISSUE-THIGH performed by Hiram Barrow MD at [facility] OR ??? Pro suct jamin lipectomy, low extrem 06/19/2014 SUCTION ASSISTED LIPECTOMY, LOWER EXTREMITY-HIRAL performed by Hiram Barrow MD at [facility] OR ??? Appendectomy ??? Pro colonoscopy, biopsy N/A 10/06/2014 COLONOSCOPY FLEXIBLE, WITH BX performed by Bassem Norman MD at [facility] ??? Pro upper gi endoscopy, biopsy N/A 10/06/2014 EGD WITH BIOPSY performed by Bassem Norman MD at [facility] ??? Pro reduction of large breast Bilateral 07/23/2015 REDUCTION MAMMOPLASTY, HIRAL performed by Hiram Barrow MD at [facility] OR ??? Pro excise excess skin tissue, arm Bilateral 07/23/2015 EXCISION, SKIN AND SUB-Q TISSUE, ARM-HIRAL performed by Hiram Barrow MD at [facility] OR ??? Pro suct jamin lipectomy, trunk Bilateral 07/23/2015 SUCTION ASSISTED LIPECTOMY,TRUNK performed by Hiram Barrow MD at [facility] MA[facility] OR No current facility-administered medications [...] B COMPLEX ORAL) Take by mouth. ??? Repzfmqgsckah-Fz-Ootz-Minerals Tab Take by mouth. Women's one a [...] s/p B/L breast reduction by Plastic Surgery inNov2014. Pt notes wound dehisced about 2-3 weeks ago, has had multiple rounds of Abx for unhealing incisions. Pt notes yesterday pain increased to incision site with moderate increased in drainage. Denies fevers at home. Pain with movement 10. Skin otherwise w/p/d, RR even and unlabored. Sent by Plastic Surgery for evaluation. documented in this encounter Plan of Treatment Upcoming Encounters Date Type Department Care Team (Latest Contact Info) Description 01/06/2025 7:30 AM EDT Hospital Encounter [place] [address] Frantz Caraballo MD [facility] [place] [address] 01/06/2025 7:30 AM EDT - 01/06/2025 12:15 PM EDT Surgery [place] [address] Frantz Caraballo MD [facility] [place] [address] EXCISION, SKIN AND SUB-Q TISSUE, ARM-HIRAL (WRVU [...] of breast- Primary Inflammatory disease of breast Elastosis of skin Other specified hypertrophic and atrophic condition of skin documented in this encounter Care Teams Mathematics Instructor Relationship Specialty Start Date End Date Avery Caballero MD [address] [place] [address] PCP - General 04/15/14 documented as of this encounter
--- OUTSIDE RECORDS SUMMARY | 2024-08-22 20:50 | XMS_ITS | Encounter Summary ---
[place] [address] Care Team Providers Care Jr. Java Developer Name Role Phone Avery Caballero MD Primary Care Provider [phone] Encounter Details Date Type Department Care Team (Late st Contact Info) Description 01/24/2016 Telephone [place] [address] Eliseo Gaytan Social History Tobacco Use Types [...] AM EDT Hospital Encounter [place] [address] Frantz Caraballo MD [facility] [place] [address] 01/06/2025 7:30 AM EDT - 01/06/2025 12:15 PM EDT Surgery Main Operating Room [facility] [place] [address] Frantz Caraballo MD [facility] [place] [address] EXCISION, SKIN AND SUB-Q TISSUE, ARM-HIRAL (WRVU [...] on filedocumented in this encounter Care Teams Jr. Java Developer Relationship Specialty Start Date End Date Avery Caballero MD [address] [place] [address] PCP - General 04/15/14 documented as of this encounter
--- OUTSIDE RECORDS SUMMARY | 2024-08-22 20:50 | XMS_ITS | Encounter Summary ---
Author Organization [facility] [place] [address] Care Team Providers Care Laundry Marker Supervisor Name Role Phone Avery Caballero MD Primary Care Provider [phone] Reason for Visit * Reason Onset Date Comments Appointment 03/07/2022 Encounter Details Date Type Department Care Team (Late st Contact Info) Description 03/07/2022 Telephone [place] [address] Yenifer Ellis MD [facility] [place] [address] Appointment Social History Tobacco Use Types Packs/Day [...] RIGHT FOOT HX OF MULTIPLE SURGERIES SINCE 2017 Yenifer Ellis MD [facility] Printing Press Machinist; [facility] Or Automation Consultant Can you please set her up for a televisit? documented in this encounter Plan of Treatment Upcoming Encounters Date Type Department Care Team (Latest Contact Info) Description 01/06/2025 7:30 AM EDT Hospital Encounter [place] [address] Frantz Caraballo MD [facility] [place] [address] 01/06/2025 7:30 AM EDT - 01/06/2025 12:15 PM EDT Surgery [place] [address] Frantz Caraballo MD [facility] [place] [address] EXCISION, SKIN AND SUB-Q TISSUE, ARM-HIRAL (WRVU [...] on filedocumented in this encounter Care Teams Laundry Marker Supervisor Relationship Specialty Start Date End Date Avery Caballero MD [address] [place] [address] PCP - General 04/15/14 documented as of this encounter
--- OUTSIDE RECORDS SUMMARY | 2024-08-22 20:50 | XMS_ITS | Encounter Summary ---
[place] [address] Care Team Providers Care Manager Field Service Name Role Phone Avery Caballero MD Primary Care Provider [phone] Reason for Visit * Reason Onset Date Comments Referral 07/25/2019 Encounter Details Date Type Department Care Team (Late st Contact Info) Description 07/25/2019 Telephone [place] [address] Pat Suarez Referral Social History Tobacco Use [...] to patient (if other than patient): [facility] Message or Reason for Call: [facility] called to let us know that Hannah declined the appointment there. They have closed the referral Appt Needed and Reason: n/a Provider: Rudolph Monsalve documented in this encounter Plan of Treatment Upcoming Encounters Date Type Department Care Team (Latest Contact Info) Description 01/06/2025 7:30 AM EDT Hospital Encounter [place] [address] Frantz Caraballo MD [facility] [place] [address] 01/06/2025 7:30 AM EDT - 01/06/2025 12:15 PM EDT Surgery [place] [address] Frantz Caraballo MD [facility] [address] EXCISION, SKIN AND SUB-Q TISSUE, ARM-HIRAL (WRVU [...] on filedocumented in this encounter Care Teams Manager Field Service Relationship Specialty Start Date End Date Avery Caballero MD [address] [place] [address] PCP - General 04/15/14 documented as of this encounter
--- OUTSIDE RECORDS SUMMARY | 2024-08-22 20:50 | XMS_ITS | Encounter Summary ---
[place] [address] Care Team Providers Care Home Health Attendant Name Role Phone Avery Caballero MD Primary Care Provider [phone] Reason for Visit * Reason Comments Follow Up Surgery Drain removal Encounter Details Date Type Department Care Team (Latest Contact Info) Description 07/30/2015 10:00 AM EST Clinical [place] [address] Surgery follow-up Social History Tobacco Use Types [...] clinic with any questions or concerns @ [phone] Sunday through Sunday from 8-5. On weekends, nights, or holidays, call the Main Hospital number @ [phone] and ask for the Plastic Surgeon regional agronomist. documented in this encounter Progress Notes * Katey Bach LPN - 07/30/2015 10:25 AM EST Patient was seen by this real estate underwriter for removal of breast drains s/p [...] sleeves Patient denies nausea or vomiting. Hannah iLng was advised to drink extra water for [...] AM EDT Hospital Encounter [place] [address] Frantz Caraballo MD [facility] [place] [address] 01/06/2025 7:30 AM EDT - 01/06/2025 12:15 PM EDT Surgery [place] [address] Frantz Caraballo MD [facility] [place] [address] EXCISION, SKIN AND SUB-Q TISSUE, ARM-HIRAL (WRVU [...] Surgery follow-up Follow-up examination, following unspecified surgery Elastosis of skin Other specified hypertrophic and atrophic condition of skin documented in this encounter Care Teams Home Health Attendant Relationship Specialty Start Date End Date Avery Caballero MD [address] [place] [address] PCP - General 04/15/14 documented as of this encounter
--- OUTSIDE RECORDS SUMMARY | 2024-08-22 20:50 | XMS_ITS | Encounter Summary ---
Author Organization [facility] Address [facility] [place] [address] Care Team Providers Care Commercial Installer Name Role Phone Avery Caballero MD Primary Care Provider [phone] Encounter Details Date Type Department Care Team (Latest Contact Info) Description 05/02/2017 - 05/02/2017 11:59 PM EDT Hospital Encounter Radiology Library at [facility] [place] [address] Julio C Amaro MD [facility] [place] [address] Discharge Disposition: Home Social History Tobacco Use [...] (SUPER B COMPLEX ORAL) Take by mouth. Rvphyowoslhvn-Fe-Rdi n-Minerals Tab Take by mouth. Women's one [...] AM EDT Hospital Encounter [place] [address] Frantz Caraballo MD [facility] [place] [address] 01/06/2025 7:30 AM EDT - 01/06/2025 12:15 PM EDT Surgery [place] [address] Frantz Caraballo MD [facility] [place] [address] EXCISION, SKIN AND SUB-Q TISSUE, ARM-HIRAL (WRVU [...] Upper Extremity (05/02/2017 12:00 AM EDT) Narrative JUDIE - 08/24/2017 4:17 PM EST This exam is for storage only and is auto-finalizing. Julio C Amaro MD IMG FILM LIBRARY ORD ERABLES [place], [place] documented in this encounter Visit Diagnoses Not on filedocumented in this encounter Care Teams Commercial Installer Relationship Specialty Start Date End Date Avery Caballero MD [address] [place] [address] PCP - General 04/15/14 documented as of this encounter
--- OUTSIDE RECORDS SUMMARY | 2024-08-22 20:50 | XMS_ITS | Encounter Summary ---
Author Organization [facility] [place] [address] Care Team Providers Care Supervisor Dials Name Role Phone Avery Caballero MD Primary Care Provider [phone] Encounter Details Date Type Department Care Team (Late st Contact Info) Description 09/20/2020 Ancillary Procedure Radiology Library at [facility] [place] [address] Yenifer Ellis MD [facility] [place] [address] Social History Tobacco Use Types Packs/Day Years [...] AM EDT Hospital Encounter Main Operating Room [facility] [place] [address] Frantz Caraballo MD [facility] [place] [address] 01/06/2025 7:30 AM EDT - 01/06/2025 12:15 PM EDT Surgery [place] [address] Frantz Caraballo MD [facility] [place] [place] [address] EXCISION, SKIN AND SUB-Q TISSUE, ARM-HIRAL (WRVU [...] DX Foot (09/20/2020 12:00 AM EST) Narrative [facility] - 07/21/2021 3:12 PM EST This exam is auto-finalizing. It's purpose is for storage only. Yenifer Ellis MD IMG FILM LIBRARY ORD ERABLES [place], [place] documented in this encounter Visit Diagnoses Not on filedocumented in this encounter Care Teams Supervisor Dials Relationship Specialty Start Date End Date Avery Caballero MD [address] [place] [address] PCP - General 04/15/14 documented as of this encounter
--- OUTSIDE RECORDS SUMMARY | 2024-08-22 20:50 | XMS_ITS | Encounter Summary ---
[place] [address] Care Team Providers Care Bulking Machine Operator Name Role Phone Avery Caballero MD Primary Care Provider [phone] Encounter Details Date Type Department Care Team (Latest Contact Info) Description 05/04/2022 7:19 AM EDT - 05/04/2022 1:00 PM EDT Hospital Encounter [place] [phone] Yenifer Ellis MD [facility] [place] [address] Nonunion after arthrodesis Discharge Disposition: Home Social [...] closest emergency room or call the hospital wink cutter operator at [phone] and ask for physician control inspector covering for your physician. Questions or problems after 5pm or on a weekend: Call the [facility] wink cutter operator at and ask for the physician control inspector covering for your doctor. At 0800 am [...] after hours and ask for the anesthesiologist control inspector. There will still be some active ingredients [...] as much as possible. Call your doctor ([phone]) if you develop: Fever greater than 100.5 Severe nausea or vomiting Increasing pain that is not controlled by pain medications Increasing redness, swelling, or drainage from incisions Change in sensation FOLLOW-UP APPOINTMENTS: 1. You will have follow-up appointments at [facility] as indicated below in Future Appointment and Orders. 2. You will need to have x-rays prior to your follow-up appointment listed below. Please come to Radiology, desk 3T, 1 hour BEFORE that appointment for these x-rays. Future Appointments Date Time Provider Department Center 05/16/2022 12:00 PM [facility] DX ROOM 2 MH Xray [facility] Rad 05/16/2022 1:00 PM Jacinda Benoit APRN [facility] ORTH 3C [facility] If you have questions or concerns: Sunday [...] (SUPER B COMPLEX ORAL) Take by mouth. Fttrhbbokueaf-Dh-Ggur-M inerals Tab Take by mouth. Women's one [...] BX performed by Bassem Norman MD at [facility] ENDOSCOPY ??? PRO EXCISE EXCESS SKIN TISSUE, ABDOMEN, ADD-ON 06/19/2014 ABDOMINOPLASTY EXC,W/ UMBILICAL TRANSPOSITION, FASCIAL PLICATION performed by Hiram Barrow MD at [facility] MAIN OR ??? PRO EXCISE EXCESS SKIN TISSUE, ARM Bilateral 07/23/2015 EXCISION, SKIN AND SUB-Q TISSUE, ARM-HIRAL performed by Hiram Barrow MD at [facility] MAIN OR ??? PRO EXCISE EXCESS SKIN TISSUE, THIGH 06/19/2014 EXCISION EXCESSIVE SKIN AND TISSUE-THIGH performed by Hiram Barrow MD at [facility] MAIN OR ??? PRO REDUCTION OF LARGE BREAST Bilateral 07/23/2015 REDUCTION MAMMOPLASTY, HIRAL performed by Hiram Barrow MD at [facility] MAIN OR ??? PRO SUCT BERTO LIPECTOMY, LOW EXTREM 06/19/2014 SUCTION ASSISTED LIPECTOMY, LOWER EXTREMITY-HIRAL performed by Hiram Barrow MD at [facility] MAIN OR ??? PRO SUCT BERTO LIPECTOMY, TRUNK Bilateral 07/23/2015 SUCTION ASSISTED LIPECTOMY,TRUNK performed by Hiram Barrow MD at [facility] MAIN OR ??? PRO UNLISTED CRANIO/MAXILLOFACIAL SURG ??? PRO UNLISTED PROCEDURE PHARYNX ADENOIDS/TONSILS ??? PRO UNLISTED PROCEDURE, MUSCULOSKELETAL SYSTEM, GENERAL ??? PRO UNLISTED PX FEMALE GEN SYS ??? PRO UPPER GI ENDOSCOPY, BIOPSY N/A 10/06/2014 EGD WITH BIOPSY performed by Bassem Norman MD at [facility] ENDOSCOPY Home Medications: Medications Prior to [...] B COMPLEX ORAL) Take by mouth. ??? Eeaezdzdqzxsh-Fn-Gnyx-Minerals Tab Take by mouth. Women's one a [...] Patient Pharmacy for outpatient medications: Tramadol to [facility] in [facility]. ASA 81 mg daily for DVT proph documented in this encounter Miscellaneous Notes * Brief Op Note - Philip Pickard MD - 05/04/2022 12:06 PM EDT Brief Operative Note Patient Name: Hannah Ling : [id number] MR#: [id number] Case Date: 05/04/2022 Surgeon: Surgeon(s) and Role: [...] Ellis MD - 05/04/2022 9:20 AM EDT [facility] Operative Note Patient Name: Hannah Ling : [id number] MR#: [id number] Case Date: 05/04/2022 Surgeon: Surgeon(s) and Role: [...] to remove the screws with a cannulated class a regional drivers. After identifying that this was a too large cannulated class a regional drivers, we adjusted appropriately and were able to [...] Implant Name Type Inv. Item Serial No. Porcelain Enamel Installer Lot No. LRB No. Used Action GRAFT BONE FILLER 1CC DBM INJECTABLE PUTTY ALLOMATRIX ([id number]) (AUTOREQ) - [id number] IMPLANTS GRAFT BONE FILLER 1CC DBM INJECTABLE PUTTY ALLOMATRIX ([id number]) (AutoReq) [id number] [employer] - [employer] SURG Right 1 Implanted GRAFT BONE FILLER 1CC DBM INJECTABLE PUTTY ALLOMATRIX ([id number]) (AUTOREQ) - [id number] IMPLANTS GRAFT BONE FILLER 1CC DBM INJECTABLE PUTTY ALLOMATRIX ([id number]) (AutoReq) [id number] [employer] - [employer]G Right 1 Implanted GRAFT BONE FILLER INJECTABLE 1.5CC DBM AUGMENT ([id number]) (AUTOREQ) - [id number] IMPLANTS GRAFT BONEFILLER INJECTABLE 1.5CC DBM AUGMENT ([id number]) (AutoReq) [facility] [id number] Right 1 Implanted GRAFT BONE FILLER [id number] DBM FREEZE DRIED CHIPS ([id number]) (AutoReq) - [id number] IMPLANTS GRAFT BONE FILLER 1UCA0-0DR DBM FREEZE DRIED CHIPS ([id number]) (AutoReq) [id number] [facility] Right 1 Implanted SUTURE ANCHOR 5.5X15MM 2-0 FIBERWIRE SDRILL TI CORKSCREW ([id number]) - [id number] IMPLANTS SUTURE ANCHOR 5.5X15MM 2-0 FIBERWIRE SDRILL TI CORKSCREW ([id number]) [employer] [place] [id number] Right 1 Implanted PLATE FLAT 6 HOLE COMP LCK TI ORTHOLOC 3DI ([id number]) (AutoReq) - [id number] IMPLANTS PLATE FLAT 6 HOLE COMP LCK TI ORTHOLOC 3DI ([id number]) (AutoReq) [facility] Right 1 Implanted SCREW 3.5X20MM MICHAEL LCK FT PURPLE TI ORTHOLOC 3DI ([id number]) (AutoReq) - [id number] IMPLANTS SCREW 3.5X20MM MICHAEL LCK FT PURPLE TI ORTHOLOC 3DI ([id number]) (AutoReq) [facility] Right 1 Implanted SCREW 3.5X24MM MICHAEL LCK FT PURPLE TI ORTHOLOC 3DI ([id number]) (AutoReq) - [id number] IMPLANTS SCREW 3.5X24MM MICHAEL LCK FT PURPLE TI ORTHOLOC 3DI ([id number]) (AutoReq) [facility] Right 1 Implanted SCREW 3.5X28MM MICHAEL LCK FT PURPLE TI ORTHOLOC 3DI ([id number]) (AutoReq) - [id number] IMPLANTS SCREW 3.5X28MM MICHAEL LCK FT PURPLE TI ORTHOLOC 3DI ([id number]) (AutoReq) [facility] Right 1 Implanted SCREW 3.5X30MM MICHAEL LCK FT PURPLE TI ORTHOLOC 3DI ([id number]) (AutoReq) - [id number] IMPLANTS SCREW 3.5X30MM MICHAEL LCK FT PURPLE TI ORTHOLOC 3DI ([id number]) (AutoReq) [facility] Right 1 Implanted SCREW 3.5X36MM MICHAEL NLCK FT BRONZE TI ORTHOLOC 3DI ([id number]) (AutoReq) - [id number] IMPLANTS SCREW 3.5X36MM MICHAEL NLCK FT BRONZE TI ORTHOLOC 3DI ([id number]) (AutoReq) [facility] Right 1 Implanted Surgical Infection Prevention Bundle Used? No Attestation: Case Date: 05/04/2022 I was present and I participated during the entire procedure (does not need to include opening and closing). Yenifer Ellis MD 05/04/2022 documented in this encounter Plan of Treatment Upcoming Encounters Date Type Department Care Team (Latest Contact Info) Description 01/06/2025 7:30 AM EDT Hospital Encounter [place] [address] Frantz Caraballo MD [facility] [place] [address] 01/06/2025 7:30 AM EDT - 01/06/2025 12:15 PM EDT Surgery [place] [phone] Frantz Caraballo MD [facility] [place] [address] EXCISION, SKIN AND SUB-Q TISSUE, ARM-HIRAL (WRVU [...] Adj Tiss Transfer Head, Fac, Hand 10.1-30 (96433) 05/04/2022 9:00 AM EDT Nonunion after arthrodesis Removal Deep Implant ([id number]) 05/04/2022 9:00 AM EDT Nonunion after arthrodesis Fusion Foot Bones, Midtarsal, Multi (40129) 05/04/2022 9:00 AM EDT Nonunion after arthrodesis [...] EDT) Anaerobic Culture No anaerobic organisms isolated [facility] Excision Site STRUCTURE OF RIGHT FOOT / Unknown 05/04/2022 10:07 AM EDT 05/04/2022 1:58 PM EDT Comment:Right CC (calcaneal) non-union Narrative Resulting Agency Comment Spec In Lab Yenifer Ellis MD MICROBIOLOGY - GENER AL ORDERABLES Performing Organization Address City/[facility]/ZIP Co de Phone Number [facility] [place] [address] * Abscess/Wound Aspirate Culture (05/04/2022 10:07 AM EDT) Abscess/Wound Aspirate Culture No growth [facility] Gram Stain No Neutrophils No microorganisms seen. [facility] Excision Site STRUCTURE OF RIGHT FOOT / Unknown 05/04/2022 10:07 AM EDT 05/04/2022 1:58 PM EDT Comment:Right CC (calcaneal) non-union Narrative Resulting Agency Comment Spec In Lab Yenifer Ellis MD MICROBIOLOGY - GENER AL ORDERABLES Performing Organization Address [facility] Co de Phone Number [facility] [place] [address] documented in this encounter Visit Diagnoses Diagnosis Hx R triple arthrodesis s/p subtalar screw removal, revision CC arthrodesis 05/04/22 (Dr. 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 Maximum dose of acetaminophen is 4,000 mg from all sources in 24 hours., Day of Surgery (Day of Procedure), Routine 0800 (Given - Provid er: Sonia Henderson RN) ceFAZolin (Ancef) 2 g vial attach to sodium chloride 0.9% 100 mL Mini-Bag Plus (COMPLETED) 2 g, Intravenous, ONCE, 1 dose, On Sun05/04/22 at 0845, Administer over 30 Minutes, Day of Surgery (Day of Procedure), Indication for (Active or Suspected): Prophylaxis 09 (New Bag - Prov ider: Germain Adams, MORTGAGE FUNDER) scopolamine (Transderm Scop) 1 mg over 3 [...] RN) documented in this encounter Care Teams Bulking Machine Operator Relationship Specialty Start Date End Date Avery Caballero MD [address] [place] [address] PCP - General 04/15/14 documented as of this encounter
--- OUTSIDE RECORDS SUMMARY | 2024-08-22 20:50 | XMS_ITS | Encounter Summary ---
[place] [address] Care Team Providers Care Patient Support Representative Name Role Phone Avery Caballero MD Primary Care Provider [phone] Reason for Visit * Reason Comments Follow Up Surgery breast incision chec k Encounter Details Date Type Department Care Team (Latest Contact Info) Description 08/19/2015 1:00 PM EST Clinical [place] [address] Surgery follow-up Social History Tobacco [...] 2:02 PM EST Client seen by this comic book writer and Dr. Hollins following a brachioplasty and [...] AM EDT Hospital Encounter Main [place] [address] Frantz Caraballo MD [facility] [place] [address] 01/06/2025 7:30 AM EDT - 01/06/2025 12:15 PM EDT Surgery Main [place] [address] Frantz Caraballo MD [facility] [place] [address] EXCISION, SKIN AND SUB-Q TISSUE, ARM-HIRAL (WRVU [...] skin documented in this encounter Care Teams Patient Support Representative Relationship Specialty Start Date End Date Avery Caballero MD [address] [place] [address] PCP - General 04/15/14 documented as of this encounter
--- OUTSIDE RECORDS SUMMARY | 2024-08-22 20:50 | XMS_ITS | Encounter Summary ---
Author Organization [facility] Address [facility] [place] [address] Care Team Providers Care Epic Application Coordinator Name Role Phone Avery Caballero MD Primary Care Provider [phone] Encounter Details Date Type Department Care Team (Latest Contact Info) Description 02/16/2017 - 02/16/2017 11:59 PM EDT Hospital Encounter Radiology Library at [facility] [phone] Julio C Amaro MD [facility] [place] [address] Pain Discharge Disposition: Home Social History Tobacco [...] (SUPER B COMPLEX ORAL) Take by mouth. Hwgyvoqerkrmk-Bl-Hmr n-Minerals Tab Take by mouth. Women's one [...] AM EDT Hospital Encounter [place] [address] Frantz Caraballo MD [facility] [place] [address] 01/06/2025 7:30 AM EDT - 01/06/2025 12:15 PM EDT Surgery [place] [address] Frantz Caraballo MD [facility] [place] [address] EXCISION, SKIN AND SUB-Q TISSUE, ARM-HIRAL (WRVU [...] DX Ankle (02/16/2017 12:00 AM EDT) Narrative [facility] - 07/17/2017 12:52 PM EST This exam is for storage only and is auto-finalizing. Julio C Amaro MD IMG FILM LIBRARY ORD ERABLES [place], [place] documented in this encounter Visit Diagnoses Diagnosis Pain Generalized pain Elastosis of skin Other specified hypertrophic and atrophic condition of skin documented in this encounter Care Teams Epic Application Coordinator Relationship Specialty Start Date End Date Avery Caballero MD [address] [place] [address] PCP - General 04/15/14 documented as of this encounter
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
--- OUTSIDE RECORDS SUMMARY | 2024-08-22 20:50 | XMS_ITS | Encounter Summary ---
Author Organization [facility] [place] [address] Care Team Providers Care Endoscope Technician Name Role Phone Avery Caballero MD Primary Care Provider [phone] Encounter Details Date Type Department Care Team (Late st Contact Info) Description 01/24/2021 Ancillary Procedure Radiology Library [place] [facility] [place] [address] Yenifer Ellis MD [facility] [place] [address] Social History Tobacco Use Types Packs/Day Years [...] AM EDT Hospital Encounter Main Operating Room [facility] [place] [address] Frantz Caraballo MD [facility] [place] [address] 01/06/2025 7:30 AM EDT - 01/06/2025 12:15 PM EDT Surgery [place] [address] Frantz Caraballo MD [facility] [place] [address] EXCISION, SKIN AND SUB-Q TISSUE, ARM-HIRAL (WRVU [...] DX Foot (01/24/2021 12:00 AM EDT) Narrative [facility] - 07/21/2021 3:18 PM EST This exam is auto-finalizing. It's purpose is for storage only. Yenifer Ellis MD IMG FILM LIBRARY ORD ERABLES [place], [place] documented in this encounter Visit Diagnoses Not on filedocumented in this encounter Care Teams Endoscope Technician Relationship Specialty Start Date End Date Avery Caballero MD [address] [place] [address] PCP - General 04/15/14 documented as of this encounter
--- OUTSIDE RECORDS SUMMARY | 2024-08-22 20:50 | XMS_ITS | Encounter Summary ---
[place] [address] Care Team Providers Care Aircraft Skin Burnisher Name Role Phone Avery Caballero MD Primary Care Provider [phone] Reason for Visit * Auth/Cert Specialty Diagnoses / Procedures Referred By Kiarra t Referred To Contact Diagnoses Hypertrophy of breast Unspecified hypertrophic and atrophic condition of skin macromastia Procedures PRO REDUCTION OF LARGE BREAST PRO EXCISE EXCESS SKIN TISSUE, ARM PRO SUCT BERTO LIPECTOMY, TRUNK REDUCTION MAMMOPLASTY, HIRAL Referral ID Status Reason Start Date Expiration Date Visits Re quested Visits Authorized [id number] 1 1 Encounter Details Date Type Department Care Team (Late st Contact Info) Description 07/23/2015 12:59 PM EST - 07/23/2015 4:58 PM EST Surgery [place] [address] Hiram Barrow MD REDUCTION MAMMOPLASTY, HIRAL (WRVU 16.03) Social History [...] is during regular office hours, please call [phone]. If it is after regular office hours, or on weekends or holidays, please call [phone] and ask to speak to the Plant Wire Chief environmental lawyer for Interventional Radiology. You have received medication [...] foul drainage occurs, please contact your M. DGenesis 09/15/11 [facility] Drainage Record NAME: Date of Surgery: Date: [...] is during regular office hours, please call [phone]. If it is after regular office hours, or on weekends or holidays, please call [phone] and ask to speak to the Plant Wire Chief environmental lawyer for Interventional Radiology. You have received medication [...] occurs, please contact your M. D. 09/15/11 [facility] Drainage Record NAME: Date of Surgery: Date: [...] good night sleep. Pain (short term and ferry terminal agent) ?? With any surgery there is some discomfort or pain. We will prescribe pain medication. Take as prescribed and only as needed. OK to take prescription medication or Tylenol. Do not take both. OK to add Ibuprofen 48 hours after surgery. ?? We recommend taking an axoc-byv-Xvxmlia stool softener, such as Colace (docusate) or [...] scheduling, please contact our administrative offices at [phone] ?? For clinical questions, please call our nurses at [phone] ?? Both offices are open Sunday thru Sunday 8a - 5p. With emergencies after hours, call the hospital dispenser operator at [phone] and ask for the Plastic Surgery Resident environmental lawyer. documented in this encounter Medications at Time [...] (SUPER B COMPLEX ORAL) Take by mouth. Zqlagpjzdgpzo-Lt-Dsw n-Minerals Tab Take by mouth. Women's one [...] hour interval history and physical exam: Hannah Lign's condition unchanged since H&P originally performed Temp: [...] Operative Note Patient Name: Hannah Ling : [id number] MR#: [id number] Case Date: 07/23/2015 Surgeon: Surgeon(s) and Role: [...] Operative Note Patient Name: Hannah Ling : [id number] MR#: [id number] Case Date: 07/23/2015 Surgeon: Surgeon(s) and Role: [...] AM EDT Hospital Encounter [place] [address] Frantz Caraballo MD [facility] [place] [address] 01/06/2025 7:30 AM EDT - 01/06/2025 12:15 PM EDT Surgery [place] [address] Frantz Caraballo MD [facility] [place] [address] EXCISION, SKIN AND SUB-Q TISSUE, ARM-HIRAL (WRVU [...] rendered or confirmed the diagnosis(es). Accession Number: [id number] ?Location: [facility]; [facility]; A . ?Surgical Pathology DIAGNOSIS [...] submitted. ?? sns 07/28/2015 12:27 PM EST [facility] ABDOMEN / Unknown 07/23/2015 2:37 PM EST 07/23/2015 2:37 PM EST BREAST STRUCTURE / Unknown 07/23/2015 2:37 PM EST 07/23/2015 2:37 PM EST ABDOMEN / Unknown 07/23/2015 2:37 PM EST 07/23/2015 2:37 PM EST ABDOMEN / Unknown 07/23/2015 2:37 PM EST 07/23/2015 2:37 PM EST Hiram Barrow MD PATHOLOGY/CYTOLOGY O RDERABLES [facility] [address] * Specimen to Pathology (surgical or derm) (07/23/2015 2:37 PM EST) AP Specimen 07/23/2015 2:37 PM EST 07/23/2015 2:37 PM EST Narrative CERNER CRISTINAIUM - 07/23/2015 2:37 PM EST Specimen requisition ordered. ??Separate Pathology report to follow Hiram Barrow MD PATHOLOGY/CYTOLOGY O RDCANDICE Performing Organization Address [facility] Co de Phone Number [facility] * Specimen to Pathology (surgical or derm) (07/23/2015 2:37 PM EST) AP Specimen 07/23/2015 2:37 PM EST 07/23/2015 2:37 PM EST Narrative SENA EVANSIUM - 07/23/2015 2:37 PM EST Specimen requisition ordered. ??Separate Pathology report to follow Hiram Barrow MD PATHOLOGY/CYTOLOGY O RDCANDICE Performing Organization Address [facility] Co de Phone Number [facility] * Specimen to Pathology (surgical or derm) (07/23/2015 2:37 PM EST) AP Specimen 07/23/2015 2:37 PM EST 07/23/2015 2:37 PM EST Narrative SENA EVANSIUM - 07/23/2015 2:37 PM EST Specimen requisition ordered. ??Separate Pathology report to follow Hiram Barrow MD PATHOLOGY/CYTOLOGY O RDCANDICE Performing Organization Address [facility] Co de Phone Number [facility] * Specimen to Pathology (surgical or derm) (07/23/2015 2:37 PM EST) AP Specimen 07/23/2015 2:37 PM EST 07/23/2015 2:37 PM EST Narrative SENA SESAY - 07/23/2015 2:37 PM EST Specimen requisition ordered. ??Separate Pathology report to follow Hiram Barrow MD PATHOLOGY/CYTOLOGY O RDCANDICE Performing Organization Address [facility]/State/ZIP Co de Phone Number [facility] * POCT HGB (07/23/2015 11:06 AM EST) [...] patch documented in this encounter Care Teams Aircraft Skin Burnisher Relationship Specialty Start Date End Date Avery Caballero MD [address] [place] [address] PCP - General 04/15/14 documented as of this encounter
--- OUTSIDE RECORDS SUMMARY | 2024-08-22 20:50 | XMS_ITS | Encounter Summary ---
Author Organization [facility] [place] [address] Care Team Providers Care Operater Name Role Phone Avery Caballero MD Primary Care Provider [phone] Encounter Details Date Type Department Care Team (Late st Contact Info) Description 02/25/2019 Ancillary Procedure Radiology Library at [facility] [place] [id number] Julio C Amaro MD [facility] [place] [address] Social History Tobacco Use Types Packs/Day Years [...] AM EDT Hospital Encounter Main Operating Room [facility] [place] [phone] Frantz Caraballo MD [facility] [place] [address] 01/06/2025 7:30 AM EDT - 01/06/2025 12:15 PM EDT Surgery [place] [address] Frantz Caraballo MD [facility] [place] [address] EXCISION, SKIN AND SUB-Q TISSUE, ARM-HIRAL (WRVU [...] MR Foot (02/25/2019 12:00 AM EDT) Narrative [facility] - 03/19/2019 6:13 PM EDT This exam is auto-finalizing. It's purpose is for storage only. Julio C Amaro MD IMG FILM LIBRARY ORD ERABLES [place], [place] documented in this encounter Visit Diagnoses Not on filedocumented in this encounter Care Teams Operater Relationship Specialty Start Date End Date Avery Caballero MD [address] [place] [address] PCP - General 04/15/14 documented as of this encounter
--- OUTSIDE RECORDS SUMMARY | 2024-08-22 20:50 | XMS_ITS | Encounter Summary ---
[place] [address] Care Team Providers Care Commercial Baking Teacher Name Role Phone Avery Caballero MD Primary Care Provider [phone] Reason for Visit * Reason Comments Follow Up Surgery s/p bbr 07/23, check incision under left breast Encounter Details Date Type Department Care Team (Late st Contact Info) Description 01/17/2016 3:00 PM EDT Office [place] [phone] Hiram Nascimento MD S/P panniculectomy; S/P bilateral breast reduction Social [...] appointment. Feel free to call our office [phone] if you have any questions or concerns. [...] aspirin products (unless otherwise advised by patient's PCP/Director Of Employee Development for cardiac symptoms), fish oil, Vitamin E [...] until healed Schedule for abdominoplasty revisions Dr Nascimenot Duration: 2 hours Timeframe: elective Procedure: liposuction of abdomen and mons pubis CPT: 04169 Surgical site: abdomen Side: N/A Anesthesia: General [...] AM EDT Hospital Encounter [place] [address] Frantz Caraballo MD [facility] [place] [address] 01/06/2025 7:30 AM EDT - 01/06/2025 12:15 PM EDT Surgery [place] [address] Frantz Caraballo MD [facility] [place] [address] EXCISION, SKIN AND SUB-Q TISSUE, ARM-HIRAL (WRVU [...] skin documented in this encounter Care Teams Commercial Baking Teacher Relationship Specialty Start Date End Date Avery Caballero MD [address] [place] [address] PCP - General 04/15/14 documented as of this encounter
--- OUTSIDE RECORDS SUMMARY | 2024-08-22 20:50 | XMS_ITS | Encounter Summary ---
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 Post-traumatic osteoarthritis of right ankle Yenifer Ellis MD [facility] [place] [address] [facility] [address] [place] [address] Referral ID Status Reason Start Date Expiration Date V isits Requested Visits Authorized [id number] Closed Consult, Test & Treat 11/10/2021 11/10/2022 1 1 Encounter Details Date Type Department Care Team (Late st Contact Info) Description 01/02/2022 3:30 PM EDT Office [place] [address] Frantz Meade MD [facility] [place] [address] Nonunion after arthrodesis Social History [...] BX performed by Bassem Norman MD at [facility] ENDOSCOPY ??? PRO EXCISE EXCESS SKIN TISSUE, ABDOMEN, ADD-ON 06/19/2014 ABDOMINOPLASTY EXC,W/ UMBILICAL TRANSPOSITION, FASCIAL PLICATION performed by Hiram Barrow MD at [facility] MAIN OR ??? PRO EXCISE EXCESS SKIN TISSUE, ARM Bilateral 07/23/2015 EXCISION, SKIN AND SUB-Q TISSUE, ARM-HIRAL performed by Hiram Barrow MD at [facility] MAIN OR ??? PRO EXCISE EXCESS SKIN TISSUE, THIGH 06/19/2014 EXCISION EXCESSIVE SKIN AND TISSUE-THIGH performed by Hiram Barrow MD at [facility] MAIN OR ??? PRO REDUCTION OF LARGE BREAST Bilateral 07/23/2015 REDUCTION MAMMOPLASTY, HIRAL performed by Hiram Barrow MD at [facility] MAIN OR ??? PRO SUCT BERTO LIPECTOMY, LOW EXTREM 06/19/2014 SUCTION ASSISTED LIPECTOMY, LOWER EXTREMITY-HIRAL performed by Hiram Barrow MD at [facility] MAIN OR ??? PRO SUCT BERTO LIPECTOMY, TRUNK Bilateral 07/23/2015 SUCTION ASSISTED LIPECTOMY,TRUNK performed by Hiram Barrow MD at [facility] MAIN OR ??? PRO UNLISTED CRANIO/MAXILLOFACIAL SURG ??? PRO UNLISTED PROCEDURE PHARYNX ADENOIDS/TONSILS ??? PRO UNLISTED PROCEDURE, MUSCULOSKELETAL SYSTEM, GENERAL ??? PRO UNLISTED PX FEMALE GEN SYS ??? PRO UPPER GI ENDOSCOPY, BIOPSY N/A 10/06/2014 EGD WITH BIOPSY performed by Bassem Norman MD at [facility] ENDOSCOPY Social History Socioeconomic History ??? [...] B COMPLEX ORAL) Take by mouth. ??? Rvcxecsvyadws-Ul-Ysts-Minerals Tab Take by mouth. Women's one a [...] AM EDT Hospital Encounter [place] [address] Frantz Meade MD [facility] [place] [address] 01/06/2025 7:30 AM EDT - 01/06/2025 12:15 PM EDT Surgery [place] [address] Frantz Meade MD [facility] [place] [address] EXCISION, SKIN AND SUB-Q TISSUE, ARM-HIRAL (WRVU 10.61) Scheduled Procedures Name Priority Associated Diagnoses Date/Ti me EXCISION, SKIN AND SUB-Q TIS XAVI, ARM-HIRAL (WRVU 10.61) Elastosis of skin 01/06/2025 7:30 AM EDT EXC EXCESSIVE SKIN & SUBQ TISSUE, OTHER AREA (WRVU 10.5) Elastosis of skin 01/06/2025 7:30 AM EDT Scheduled Referrals Name Type Priority Associated Diagnoses Orde r Schedule Referral to Plastic Surgery Outpatient Referral Routine Right foot pain 

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
--- OUTSIDE RECORDS SUMMARY | 2024-08-22 20:50 | XMS_ITS | Encounter Summary ---
Author Organization [facility] [place] [address] Care Team Providers Care Repairer Kiln Car Name Role Phone Avery Caballero MD Primary Care Provider [phone] Encounter Details Date Type Department Care Team (Late st Contact Info) Description 03/28/2021 Ancillary Procedure Radiology Library at [facility] [place] [address] Yenifer Ellis MD [facility] [place] [address] Social History Tobacco Use Types Packs/Day Years [...] AM EDT Hospital Encounter Main Operating Room Counts Include [address] Beds [facility] [address] Frantz Caraballo MD [facility] [place] [address] 01/06/2025 7:30 AM EDT - 01/06/2025 12:15 PM EDT Surgery [place] [address] Frantz Caraballo MD [facility] [place] [address] EXCISION, SKIN AND SUB-Q TISSUE, ARM-HIRAL (WRVU [...] Lower Extremity (03/28/2021 12:00 AM EDT) Narrative [facility] - 07/21/2021 3:24 PM EST This exam is auto-finalizing. It's purpose is for storage only. Yenifer Ellis MD IMG FILM LIBRARY ORD ERABLES [place], [place] documented in this encounter Visit Diagnoses Not on filedocumented in this encounter Care Teams Repairer Kiln Car Relationship Specialty Start Date End Date Avery Caballero MD [address] [place] [address] PCP - General 04/15/14 documented as of this encounter
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
--- OUTSIDE RECORDS SUMMARY | 2024-08-22 20:50 | XMS_ITS | Encounter Summary ---
Author Organization [facility] [place] [address] Care Team Providers Care Dowel Pointer Name Role Phone Avery Caballero MD Primary Care Provider Reason for Visit * Consultation (Routine) - Closed Specialty Diagnoses / Procedures Referred By Contshirlene t Referred To Contact Dermatology Diagnoses Disorder of the skin and subcutaneous tissue, unspecified Linear Arranged Group of Brown Macules; New Patient-Notes Received Procedures Consult Avery Caballero MD [address] [place] [address] [facility] Dermatology [address] [place] [address] Referral ID Status Reason Start Date Expiration Date Visits Re quested Visits Authorized [id number] Closed 04/14/2021 04/14/2022 1 1 Encounter Details Date Type Department Care Team (Late st Contact Info) Description 06/20/2021 11:15 AM EDT Office Visit Dermatology at [facility] [address] [place] [address] Sally Coyle MD [facility] [address] [facility] [address] Seborrheic keratosis Social History Tobacco [...] ??? N/A RTC: PRN []Note routed to unit secretary []Recall placed in scheduling system []Appointment scheduled at checkout Scribe attestation: Christina Fernandez LPN has performed the documentation for this encounter in the presence of and acting as a scribe for Sally Long MD. I performed the above scribed service and agree with the accuracy of the documentation in this encounter. Reviewed and signed by: Sally Long MD Dermatology [facility] documented in this encounter Plan of Treatment Upcoming Encounters Date Type Department Care Team (Latest Contact Info) Description 01/06/2025 7:30 AM EDT Hospital Encounter [place] [address] Frantz Caraballo MD [facility] [place] [address] 01/06/2025 7:30 AM EDT - 01/06/2025 12:15 PM EDT Surgery [place] [address] Frantz Caraballo MD [facility] [place] [address] EXCISION, SKIN AND SUB-Q TISSUE, ARM-HIRAL (WRVU 10.61) Scheduled Procedures Name Priority Associated Diagnoses Date/Ti me EXCISION, SKIN AND SUB-Q TIS XAVI, ARM-HIRAL (WRVU 10.61) Elastosis of skin 01/06/2025 7:30 AM EDT EXC EXCESSIVE SKIN & SUBQ TISSUE, OTHER AREA (WRVU 10.5) Elastosis of skin 01/06/2025 7:30 AM EDT documented as of this encounter Visit Diagnoses Diagnosis Seborrheic keratosis Other seborrheic keratosis Elastosis of skin Other specified hypertrophic and atrophic condition of skin documented in this encounter Care Teams Dowel Pointer Relationship Specialty Start Date End Date Avery Caballero MD [address] [place] [address] PCP - General 04/15/14 documented as of this encounter
--- OUTSIDE RECORDS SUMMARY | 2024-08-22 20:50 | XMS_ITS | Encounter Summary ---
Author Organization [facility] [place] [address] Care Team Providers Care Publicity Writer Name Role Phone Avery Caballero MD Primary Care Provider [phone] Encounter Details Date Type Department Care Team (Late st Contact Info) Description 03/21/2021 Ancillary Procedure Radiology Library at [facility] [place] [address] Yenifer Ellis MD [facility] [place] [address] Social History Tobacco Use Types Packs/Day Years [...] AM EDT Hospital Encounter Main Operating Room [facility] [place] [address] Frantz Caraballo MD [facility] [place] [address] 01/06/2025 7:30 AM EDT - 01/06/2025 12:15 PM EDT Surgery [place] [address] Frantz Caraballo MD [facility] [place] [place] [address] EXCISION, SKIN AND SUB-Q TISSUE, ARM-HIRAL (WRVU [...] DX Foot (03/21/2021 12:00 AM EDT) Narrative [facility] - 07/21/2021 3:22 PM EST This exam is auto-finalizing. It's purpose is for storage only. Yenifer Ellis MD IMG FILM LIBRARY ORD ERABLES [place], [place] documented in this encounter Visit Diagnoses Not on filedocumented in this encounter Care Teams Publicity Writer Relationship Specialty Start Date End Date Avery Caballero MD [address] [place] [address] PCP - General 04/15/14 documented as of this encounter
--- OUTSIDE RECORDS SUMMARY | 2024-08-22 20:50 | XMS_ITS | Encounter Summary ---
Author Organization [facility] [place] [address] Care Team Providers Care Pillar Worker Name Role Phone Avery Caballero MD Primary Care Provider [phone] Encounter Details Date Type Department Care Team (Late st Contact Info) Description 09/08/2020 Ancillary Procedure Radiology Library at [facility] [place] [address] [facility] [place] [address] Social History Tobacco Use Types Packs/Day Years [...] Room [facility] [place] [address] [facility] [place] [address] 01/06/2025 7:30 AM EDT - 01/06/2025 12:15 PM EDT Surgery [place] [address] [facility] [place] [address] EXCISION, SKIN AND SUB-Q TISSUE, ARM-HIRAL (WRVU [...] DX Foot (09/08/2020 12:00 AM EST) Narrative [facility] - 07/21/2021 3:10 PM EST This exam is auto-finalizing. It's purpose is for storage only. Yenifer Ellis MD IMG FILM LIBRARY ORD ERABLES [place], [place] documented in this encounter Visit Diagnoses Not on filedocumented in this encounter Care Teams Pillar Worker Relationship Specialty Start Date End Date Avery Caballero MD [address] [place] [address] PCP - General 04/15/14 documented as of this encounter
--- OUTSIDE RECORDS SUMMARY | 2024-08-22 20:50 | XMS_ITS | Encounter Summary ---
Author Organization [facility] Address [facility] [place] [address] Care Team Providers Care Cigar Head Stringer Name Role Phone Avery Caballero MD Primary Care Provider [phone] Encounter Details Date Type Department Care Team (Latest Contact Info) Description 03/12/2017 - 03/12/2017 11:59 PM EDT Hospital Encounter Radiology Library at [facility] [place] [address] Julio C Amaro MD [facility] [place] [address] Pain Discharge Disposition: Home Social History Tobacco [...] (SUPER B COMPLEX ORAL) Take by mouth. Vdmvbfpzisbqn-Xd-Vpl n-Minerals Tab Take by mouth. Women's one [...] AM EDT Hospital Encounter [place] [address] Frantz Caraballo MD [facility] [place] [address] 01/06/2025 7:30 AM EDT - 01/06/2025 12:15 PM EDT Surgery [place] [address] Frantz Caraballo MD [facility] [place] [address] EXCISION, SKIN AND SUB-Q TISSUE, ARM-HIRAL (WRVU [...] Lower Extremity (03/12/2017 12:00 AM EDT) Narrative [facility] - 07/17/2017 12:53 PM EST This exam is for storage only and is auto-finalizing. Julio C Amaro MD IMG FILM LIBRARY ORD ERABLES [place], [place] documented in this encounter Visit Diagnoses Diagnosis Pain Generalized pain Elastosis of skin Other specified hypertrophic and atrophic condition of skin documented in this encounter Care Teams Cigar Head Stringer Relationship Specialty Start Date End Date Avery Caballero MD [address] [place] [address] PCP - General 04/15/14 documented as of this encounter
--- OUTSIDE RECORDS SUMMARY | 2024-08-22 20:50 | XMS_ITS | Encounter Summary ---
Author Organization [facility] Address [facility] [place] [address] Care Team Providers Care Picker Operator Name Role Phone Avery Caballero MD Primary Care Provider [phone] Encounter Details Date Type Department Care Team (Latest Contact Info) Description 04/03/2022 3:30 PM EDT TH Visit (TeleHealth) Orthopaedics at [address] [address] Yenifer Ellis MD [facility] [place] [address] Nonunion after arthrodesis Social History Tobacco Use [...] that prescription in for her to her Veenome. We will also plan for operative intervention [...] AM EDT Hospital Encounter [place] [address] Frantz Caraballo MD [facility] [place] [address] 01/06/2025 7:30 AM EDT - 01/06/2025 12:15 PM EDT Surgery [place] [address] Frantz Caraballo MD [facility] [place] [address] EXCISION, SKIN AND SUB-Q TISSUE, ARM-HIRAL (WRVU [...] skin documented in this encounter Care Teams Picker Operator Relationship Specialty Start Date End Date Avery Caballero MD [address] [place] [address] PCP - General 04/15/14 documented as of this encounter
--- OUTSIDE RECORDS SUMMARY | 2024-08-22 20:50 | XMS_ITS | Encounter Summary ---
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 Post-traumatic osteoarthritis of right ankle Yenifer Ellis MD [facility] [place] [address] [facility] Plastic Surg [address] [place] [address] Referral ID Status Reason Start Date Expiration Date V isits Requested Visits Authorized [id number] Closed Consult, Test & Treat 11/10/2021 11/10/2022 1 1 Encounter Details Date Type Department Care Team (Late st Contact Info) Description 11/10/2021 Orders [place] [address] Yenifer Ellis MD [facility] [place] [address] Right foot pain; Status post [...] AM EDT Hospital Encounter [place] [address] Frantz Caraballo MD [facility] [place] [address] 01/06/2025 7:30 AM EDT - 01/06/2025 12:15 PM EDT Surgery [place] [address] Frantz Caraballo MD [facility] [place] [address] EXCISION, SKIN AND SUB-Q TISSUE, ARM-HIRAL (WRVU [...] after arthrodesis Post-traumatic osteoarthritis of right ankle Elastosis of skin Other specified hypertrophic and atrophic condition of skin documented in this encounter Care Teams Tool Machine Shop Supervisor Relationship Specialty Start Date End Date Avery Caballero MD [address] [place] [address] PCP - General 04/15/14 documented as of this encounter
--- OUTSIDE RECORDS SUMMARY | 2024-08-22 20:50 | XMS_ITS | Encounter Summary ---
[place] [address] Care Team Providers Care Brake Linings Coater Name Role Phone Avery Caballero MD Primary Care Provider [phone] Reason for Visit * Reason Comments Follow Up Surgery s/p bbr 07/23, brach ioplasty Encounter Details Date Type Department Care Team (Late st Contact Info) Description 08/03/2015 8:00 AM EST Office [place] [address] Varsha Lima APRN [facility] DR [place] [address] Surgery follow-up Social History Tobacco Use Types [...] brachioplasty with liposuction Complications: None reported Pain: 10/13 HPI: She reports she is doing well [...] Arms: Incisions healing well, no open areas. Zach removed today. No evidence of infection, seroma [...] no pulling) Prescriptions provided: None Supplies: a page surgical bra was provided Follow up: 1 month with Marta Sierra am acting as scribe for Varsha Lima. All work documented was performed by Varsha Lima. ???I performed the above scribed service and agree with the accuracy of the note?? VARSHA LIMA APRN documented in this encounter Plan of Treatment Upcoming Encounters Date Type Department Care Team (Latest Contact Info) Description 01/06/2025 7:30 AM EDT Hospital Encounter [place] [address] Frantz Caraballo MD [facility] [place] [address] 01/06/2025 7:30 AM EDT - 01/06/2025 12:15 PM EDT Surgery [place] [address] Frantz Caraballo MD [facility] [place] [address] EXCISION, SKIN AND SUB-Q TISSUE, ARM-HIRAL (WRVU [...] skin documented in this encounter Care Teams Brake Linings Coater Relationship Specialty Start Date End Date Avery Caballero MD [address] [place] [address] PCP - General 04/15/14 documented as of this encounter
--- OUTSIDE RECORDS SUMMARY | 2024-08-22 20:50 | XMS_ITS | Encounter Summary ---
[place] [address] Care Team Providers Care Senior Game Developer Name Role Phone Avery Caballero MD Primary Care Provider [phone] Reason for Visit * Reason Comments Follow Up Surgery bbr and brachioplast y * Consultation (Routine) - Closed Specialty Diagnoses / Procedures Referred By Kiarra t Referred To Contact Plastic Surgery Diagnoses BREAST PAIN DUE TO EXCESSING BREAST TISSUE. LIPOSUCTION, BREAST REDUCTION Procedures BREAST REDUCTION ALREADY SCHEDULED Avery Caballero MD [address] [place] [address] [facility] Plastic Surg [address] [place] [address] Referral ID Status Reason Start Date Expiration Date V isits Requested Visits Authorized [id number] Closed Consult, Test & Treat [facility] 07/14/2015 07/13/2016 1 1 Encounter Details Date Type Department Care Team (Latest Contact Info) Description 07/26/2015 11:00 AM EST Clinical [place] [address] Surgery follow-up Social History Tobacco [...] three days. Please call the clinic at [phone] with any questions or concerns. documented in this encounter Progress Notes * Nadya Haile RN - 07/26/2015 12:03 PM EST Patient was seen by this video game script writer for removal of breast drains s/p [...] place. Patient denies nausea or vomiting. Hannah Domingo Danyprecious was advised to drink extra water for [...] AM EDT Hospital Encounter [place] [address] Frantz Caraballo MD [facility] [place] [address] 01/06/2025 7:30 AM EDT - 01/06/2025 12:15 PM EDT Surgery [place] [address] Frantz Caraballo MD [facility] [place] [address] EXCISION, SKIN AND SUB-Q TISSUE, ARM-HIRAL (WRVU [...] skin documented in this encounter Care Teams Senior Game Developer Relationship Specialty Start Date End Date Avery Caballero MD [address] [place] [address] PCP - General 04/15/14 documented as of this encounter
--- OUTSIDE RECORDS SUMMARY | 2024-08-22 20:50 | XMS_ITS | Encounter Summary ---
Author Organization [facility] [place] [address] Care Team Providers Care Gasoline Plant Operator Name Role Phone Avery Caballero MD Primary Care Provider [phone] Encounter Details Date Type Department Care Team (Late st Contact Info) Description 11/15/2020 Ancillary Procedure Radiology Library at [facility] [place] [address] Yenifer Ellis MD [facility] [place] [address] Social History Tobacco Use Types Packs/Day Years [...] AM EDT Hospital Encounter Main Operating Room [facility] [place] [address] Frantz Caraballo MD [facility] [place] [address] 01/06/2025 7:30 AM EDT - 01/06/2025 12:15 PM EDT Surgery [place] [address] Frantz Caraballo MD [facility] [place] [address] EXCISION, SKIN AND SUB-Q TISSUE, ARM-HIRAL (WRVU [...] DX Foot (11/15/2020 12:00 AM EDT) Narrative [facility] - 07/21/2021 3:16 PM EST This exam is auto-finalizing. It's purpose is for storage only. Yenifer Ellis MD IMG FILM LIBRARY ORD ERABLES [place], [place] documented in this encounter Visit Diagnoses Not on filedocumented in this encounter Care Teams Gasoline Plant Operator Relationship Specialty Start Date End Date Avery Caballero MD [address] [place] [address] PCP - General 04/15/14 documented as of this encounter
--- OUTSIDE RECORDS SUMMARY | 2024-08-22 20:50 | XMS_ITS | Encounter Summary ---
Author Organization [facility] [place] [address] Care Team Providers Care Director Trading Name Role Phone Avery Caballero MD Primary Care Provider [phone] Reason for Visit * Reason Onset Date Comments Questions 11/09/2021 Encounter Details Date Type Department Care Team (Late st Contact Info) Description 11/09/2021 Telephone [place] [address] Yenifer Ellis MD [facility] [place] [address] Questions Social History Tobacco Use Types Packs/Day [...] foot. Best number to reach the caller: [phone] documented in this encounter Plan of Treatment Upcoming Encounters Date Type Department Care Team (Latest Contact Info) Description 01/06/2025 7:30 AM EDT Hospital Encounter [place] [address] Frantz Caraballo MD [facility] [place] [address] 01/06/2025 7:30 AM EDT - 01/06/2025 12:15 PM EDT Surgery [place] [address] Frantz Caraballo MD [facility] [place] [address] EXCISION, SKIN AND SUB-Q TISSUE, ARM-HIRAL (WRVU [...] on filedocumented in this encounter Care Teams Director Trading Relationship Specialty Start Date End Date Avery Caballero MD [address] [place] [address] PCP - General 04/15/14 documented as of this encounter
--- OUTSIDE RECORDS SUMMARY | 2024-08-22 20:50 | XMS_ITS | Encounter Summary ---
Author Organization [facility] [place] [address] Care Team Providers Care Deaf/Hard Of Hearing Specialist Name Role Phone Avery Caballero MD Primary Care Provider [phone] Encounter Details Date Type Department Care Team (Late st Contact Info) Description 06/13/2021 Ancillary Procedure Radiology Library at [facility] [place] [phone] Yenifer Ellis MD [facility] [place] [address] Social History Tobacco Use Types Packs/Day Years [...] AM EDT Hospital Encounter Main Operating Room [facility] [place] [address] Frantz Caraballo MD [facility] [place] [address] 01/06/2025 7:30 AM EDT - 01/06/2025 12:15 PM EDT Surgery [place] [address] Frantz Caraballo MD [facility] [place] [place] [address] EXCISION, SKIN AND SUB-Q TISSUE, ARM-HIRAL (WRVU [...] DX Foot (06/13/2021 12:00 AM EDT) Narrative [facility] - 07/21/2021 3:26 PM EST This exam is auto-finalizing. It's purpose is for storage only. Yenifer Ellis MD IMG FILM LIBRARY ORD ERABLES [place], [place] documented in this encounter Visit Diagnoses Not on filedocumented in this encounter Care Teams Deaf/Hard Of Hearing Specialist Relationship Specialty Start Date End Date Avery Caballero MD [address] [place] [address] PCP - General 04/15/14 documented as of this encounter
--- OUTSIDE RECORDS SUMMARY | 2024-08-22 20:50 | XMS_ITS | Encounter Summary ---
Author Organization [facility] [place] [address] Care Team Providers Care Copper Tapper Name Role Phone Avery Caballero MD Primary Care Provider [phone] Encounter Details Date Type Department Care Team (Late st Contact Info) Description 03/19/2019 6:20 PM EDT Ancillary Procedure Radiology Library [place] [facility] [place] [address] Julio C Amaro MD [facility] [place] [address] Social History Tobacco Use Types Packs/Day Years [...] Hospital Encounter Main Operating Room [facility] [place] [place] [address] Frantz Caraballo MD [facility] [place] [address] 01/06/2025 7:30 AM EDT - 01/06/2025 12:15 PM EDT Surgery [place] [address] Frantz Caraballo MD [facility] [place] [address] EXCISION, SKIN AND SUB-Q TISSUE, ARM-HIRAL (WRVU [...] DX Ankle (03/19/2019 6:15 PM EDT) Narrative [facility] - 03/19/2019 6:15 PM EDT This exam is auto-finalizing. It's purpose is for storage only. Julio C Amaro MD IMG FILM LIBRARY ORD ERABLES [place], [place] documented in this encounter Visit Diagnoses Not on filedocumented in this encounter Care Teams Copper Tapper Relationship Specialty Start Date End Date Avery Caballero MD [address] [place] [address] PCP - General 04/15/14 documented as of this encounter
--- OUTSIDE RECORDS SUMMARY | 2024-08-22 20:50 | XMS_ITS | Encounter Summary ---
Author Organization [facility] Address [facility] [place] [address] Care Team Providers Care Superintendent Oil Field Drilling Name Role Phone Avery Caballero MD Primary Care Provider [phone] Encounter Details Date Type Department Care Team (Late st Contact Info) Description 06/20/2021 11:30 AM EDT Office Visit Dermatology at [facility] [address] [place] [address] Sally Coyle MD [facility] [address] [facility] [place] [address] Seborrheic keratosis Social History Tobacco Use Types [...] and signed by: Sally Long MD Dermatology [facility] documented in this encounter Plan of Treatment Upcoming Encounters Date Type Department Care Team (Latest Contact Info) Description 01/06/2025 7:30 AM EDT Hospital Encounter [place] [address] Frantz Caraballo MD [facility] [place] [address] 01/06/2025 7:30 AM EDT - 01/06/2025 12:15 PM EDT Surgery [place] [address] Frantz Caraballo MD [facility] [place] [address] EXCISION, SKIN AND SUB-Q TISSUE, ARM-HIRAL (WRVU [...] skin documented in this encounter Care Teams Superintendent Oil Field Drilling Relationship Specialty Start Date End Date Avery Caballero MD [address] [place] [address] PCP - General 04/15/14 documented as of this encounter
--- OUTSIDE RECORDS SUMMARY | 2024-08-22 20:51 | XMS_ITS | Encounter Summary ---
[place] [address] Care Team Providers Care Director Of Head Start Name Role Phone Avery Caballero MD Primary Care Provider [phone] Reason for Visit * Reason Comments Follow Up Surgery abdominoplasty/thigh plasty dos 06/19/15, discuss bbr Encounter Details Date Type Department Care Team (Late st Contact Info) Description 04/12/2015 3:30 PM EDT [place] [phone] Hiram Nascimento MD Macromastia; Excess skin of arm Discharge Disposition: [...] this encounter Patient Instructions * Patient Instructions* Kuiken, Darcy L, RN - 04/12/2015 4:17 PM EDT You were given written and verbal preoperative instructions today. To prepare for your upcoming surgery, please review the Pre-Operative Instruction brochure that youwere given at today's appointment. Feel free to call our office [phone] if you have any questions or concerns. [...] aspirin products (unless otherwise advised by patient's PCP/Cleaning Professional for cardiac symptoms), fish oil, Vitamin E [...] relief of herbreast-related symptoms. She watched the [employer] video on breast reduction, and was provided [...] revisions for scarring or asymmetry.) Dee or Sutton Pattern Incision: More scarring on breast, but [...] liposuction of upper flanks 1 hour CPT: 74814, 40312, 87226 Surgical site: breasts, arms, and upper flanks [...] AM EDT Hospital Encounter [place] [address] Frantz Caraballo MD [facility] [place] [address] 01/06/2025 7:30 AM EDT - 01/06/2025 12:15 PM EDT Surgery [place] [address] Frantz Caraballo MD [facility] [place] [address] EXCISION, SKIN AND SUB-Q TISSUE, ARM-HIRAL (WRVU [...] Unspecified hypertrophic and atrophic condition of skin Elastosis of skin Other specified hypertrophic and atrophic condition of skin documented in this encounter Care Teams Director Of Head Start Relationship Specialty Start Date End Date Avery Caballero MD [address] [place] [address] PCP - General 04/15/14 documented as of this encounter
--- OUTSIDE RECORDS SUMMARY | 2024-08-22 20:51 | XMS_ITS | Encounter Summary ---
[place] [address] Care Team Providers Care Busperson Name Role Phone Avery Caballero MD Primary Care Provider [phone] Reason for Visit * Reason Comments Follow Up Surgery Encounter Details Date Type Department Care Team (Late st Contact Info) Description 08/06/2014 8:15 AM EST [place] [address] Hiram Nascimento MD Lipodystrophy; Other specified aftercare following surgery; Abdominal [...] documented in this encounter Progress Notes * Hriam Nascimento MD - 08/06/2014 8:25 AM EST [...] AM EDT Hospital Encounter [place] [address] Frantz Caraballo MD [facility] [place] [address] 01/06/2025 7:30 AM EDT - 01/06/2025 12:15 PM EDT Surgery Main Operating Room [facility] [place] [address] Frantz Caraballo MD [facility] [place] [address] EXCISION, SKIN AND SUB-Q TISSUE, ARM-HIRAL (WRVU [...] Text Report Department: Vascular Surgery Lab Patient: [id number] (HANNAH WONG) CPT Code: 97435 ICD-9: 729.81 Referring Physician: HIRAM NASCIMENTO Indication: [...] AM EST Hiram Nascimento MD VASCULAR ORDERABLES VASCUBASE documented in this encounter Visit Diagnoses Diagnosis Lipodystrophy Other specified aftercare following surgery Abdominal pannus Localized adiposity Elastosis of skin Other specified hypertrophic and atrophic condition of skin documented in this encounter Care Teams Busperson Relationship Specialty Start Date End Date Avery Caballero MD [address] [place] [address] PCP - General 04/15/14 documented as of this encounter
--- OUTSIDE RECORDS SUMMARY | 2024-08-22 20:51 | XMS_ITS | Encounter Summary ---
[place] [address] Care Team Providers Care Helmet Coverer Name Role Phone Avery Caballero MD Primary Care Provider [phone] Reason for Visit * Reason Comments Advice Only abdominoplasty and t high plasty consult Encounter Details Date Type Department Care Team (Late st Contact Info) Description 04/15/2014 1:35 PM EDT Office [place] [address] Hiram Nascimento MD Abdominal pannus; Breast hypertrophy; Lipodystrophy Discharge Disposition: [...] this encounter Patient Instructions * Patient Instructions* Oliverio-Hannah, Meredith M, PUBLISHING SPECIALIST - 04/15/2014 3:01 PM EDT Written and [...] aspirin products (unless otherwise advised by patient's PCP/Marketing Teacher for cardiac symptoms), fish oil, Vitamin E [...] for abdominal panniculectomy. Her PCP is AVERY CABALELRO MD and has requested the consultation. She [...] loss. She previously underwent bariatric surgery in [place] and remains in the program. She brought [...] possibilities. She has been provided with the [facility] patient information brochure as well as their standard informed consent documents on both abdominoplasty and panniculectomy. She has expressed a desire to proceed with surgical correction. We have obtained photographs today. I will communicate my recommendations to AVERY CABALLERO MD. Surgical Grid: Surgeon: Dr. Nascimento Duration: 6 hours Timeframe: Elective Coordinated with: None Procedure: Abdominoplasty, thighplasty, liposuction CPT: 91963, 97857, 84555 Surgical site: Abdomen, thighs Side: N/a Anesthesia: [...] AM EDT Hospital Encounter Main [place] [address] Frantz Caraballo MD [facility] [place] [address] 01/06/2025 7:30 AM EDT - 01/06/2025 12:15 PM EDT Surgery [place] [address] Frantz Caraballo MD [facility] [place] [address] EXCISION, SKIN AND SUB-Q TISSUE, ARM-HIRAL (WRVU [...] adiposity Breast hypertrophy Hypertrophy of breast Lipodystrophy Elastosis of skin Other specified hypertrophic and atrophic condition of skin documented in this encounter Care Teams Helmet Coverer Relationship Specialty Start Date End Date Avery Caballero MD [address] [place] [address] PCP - General 04/15/14 documented as of this encounter
--- OUTSIDE RECORDS SUMMARY | 2024-08-22 20:51 | XMS_ITS | Encounter Summary ---
[place] [address] Care Team Providers Care Christmas Tree Grader Name Role Phone Avery Caballero MD Primary Care Provider [phone] Reason for Visit * Auth/Cert Specialty Diagnoses / Procedures Referred By Kiarra banuelos Referred To Contact Diagnoses Hypertrophy of breast Unspecified hypertrophic and atrophic condition of skin macromastia Procedures PRO REDUCTION OF LARGE BREAST PRO EXCISE EXCESS SKIN TISSUE, ARM PRO SUCT BERTO LIPECTOMY, TRUNK REDUCTION MAMMOPLASTY, HIRAL Referral ID Status Reason Start Date Expiration Date Visits Re quested Visits Authorized [id number] 1 1 Encounter Details Date Type Department Care Team (Late st Contact Info) Description 07/23/2015 1:09 PM EST Anesthesia [place] [address] Paul Borden MD [facility] [place] [address] Anesthesia Record Procedure Summary Procedure Name Responsible [...] Start 1549 Break/Relief In JANELLE Zeng SC HINDLER, SINGLE SPINDLE SCREW MACHINE OPERATOR 1609 Break/Relief Out 1654 Procedure Stop 1703 [...] Left; groi n; collapsible closed device; 19 Ethiopian Spencer drain. 06/19/14 0000 by Nicole Dee RN Drain/Device Site 06/19/14; Right; erick in; collapsible closed device; 19 Ethiopian Spencer drain. 06/19/14 0000 by Nicole Dee [...] 1542; median cubital vein right (antecubital fossa); toqo-fvq-emzpij catheter system; 22 gauge; Ace Rashid RN; intradermal injection, tolerated well, appears comfortable; 07/23/15; 210710/06/14 1542 by Germain Rashid RN 07/23/152107 by Leon Larry RN Urethral Catheter 07/23/15; Surgery longer than 2 hours; indwelling double lumen catheter; 100% silicone; 16; inserted at this facility; 1; 5; 10; none; drainage bag to dependent drainage; urethral catheter removed; Inserted without difficulty by Nikolas Fontana RN; 07/23/15; 1653 07/23/15 0000 by Nydia Fontana RN 07/23/15 1653 by Nydia Fontana RN Incision 07/23/15; arm; 05/01 (LDA cleanup [...] Lucas; Removal Date: 07/23/15; Removal Time: 170207/23/15 133 by Melodie Lucas CRNA 07/23/151702 by Melodie Lucas CRNA (RETIRED) Peripheral IV Line - Single Lumen 07/23/15; 1352; boar-zmq-lcxlga catheter system; 22 gauge, 1 in length; distraction, intradermal injection, tolerated well, appears comfortable; 07/23/15; 210707/23/15 135 by Pricilla Ko RN 07/23/152107 by Leon [...] PLICATION performed by Hiram Barrow MD at [facility] MAIN OR ??? Pro excise excess skin tissue, thigh 06/19/2014 EXCISION EXCESSIVE SKIN AND TISSUE-THIGH performed by Hiram Barrow MD at [facility] MAIN OR ??? Pro suct berto lipectomy, low extrem 06/19/2014 SUCTION ASSISTED LIPECTOMY, LOWER EXTREMITY-HIRAL performed by Hiram Barrow MD at [facility] MAIN OR ??? Appendectomy ??? Pro colonoscopy, biopsy N/A 10/06/2014 COLONOSCOPY FLEXIBLE, WITH BX performed by Bassem Norman MD at [facility] ENDOSCOPY ??? Pro upper gi endoscopy, biopsy N/A 10/06/2014 EGD WITH BIOPSY performed by Bassem Norman MD at [facility] ENDOSCOPY History Substance Use Topics ??? [...] AM EDT Hospital Encounter [place] [address] Frantz Caraballo MD [facility] [place] [place] [address] 01/06/2025 7:30 AM EDT - 01/06/2025 12:15 PM EDT Surgery [place] [address] Frantz Caraballo MD [facility] [place] [address] EXCISION, SKIN AND SUB-Q TISSUE, ARM-HIRAL (WRVU [...] mg documented in this encounter Care Teams Christmas Tree Grader Relationship Specialty Start Date End Date Avery Caballero MD [address] [place] [address] PCP - General 04/15/14 documented as of this encounter
--- OUTSIDE RECORDS SUMMARY | 2024-08-22 20:51 | XMS_ITS | Encounter Summary ---
Author Organization [facility] [address] Care Team Providers Care Dancing Instructor Name Role Phone Avery Caballero MD Primary Care Provider [phone] Encounter Details Date Type Department Care Team (Late st Contact Info) Description 09/30/2014 Telephone [place] [address] Amanda Coello Social History Tobacco Use Types [...] AM EDT Hospital Encounter [place] [address] Frantz Caraballo MD [facility] [place] [address] 01/06/2025 7:30 AM EDT - 01/06/2025 12:15 PM EDT Surgery Main Operating Room [facility] [place] [address] Frantz Caraballo MD [facility] [place] [address] EXCISION, SKIN AND SUB-Q TISSUE, ARM-HIRAL (WRVU [...] on filedocumented in this encounter Care Teams Dancing Instructor Relationship Specialty Start Date End Date Avery Caballero MD [address] [place] [address] PCP - General 04/15/14 documented as of this encounter
--- OUTSIDE RECORDS SUMMARY | 2024-08-22 20:51 | XMS_ITS | Encounter Summary ---
[place] [address] Care Team Providers Care Soaking Pit Operator Name Role Phone Avery Caballero MD Primary Care Provider [phone] Reason for Visit * Reason Comments Follow Up Surgery s/p abdominoplasty d os 06/19/14/ thighplasty Encounter Details Date Type Department Care Team (Late st Contact Info) Description 11/25/2014 3:00 PM EDT [place] [address] Hiram Nascimento MD S/P panniculectomy Discharge Disposition: Home Social History [...] thigh. She is leaving December 10 to [place] for 3 weeks Examination: Patient is alert, [...] AM EDT Hospital Encounter [place] [address] Frnatz Caraballo MD [facility] [address] 01/06/2025 7:30 AM EDT - 01/06/2025 12:15 PM EDT Surgery Main Operating Room [facility] [place] [address] Frantz Caraballo MD [facility] [address] EXCISION, SKIN AND SUB-Q TISSUE, ARM-HIRAL (WRVU [...] WONG ?Ordered By: HIRAM NASCIMENTO ? MR#: [id number] ?LOC: ??4M ? /Sex: ??1965 (49 years), [...] Tetracycline ?S ? Vancomycin ?S ? Patient: BRINK, HANNAH S ? MR#: [id number] ? S=Susceptible ??I=Intermediate ??R=Resistant ??NA=Not Applicable ? DDS=Dose dependent-suscept ible ??NS=Non-suscepti ble ? FOOTNOTES ? (1) ? Gentamicin is not appropriate for Morovis-therapy. ? (2) ? Penicillin resistant, Nafcillin susceptible Staphylococci are resistant to ? B-lactamase labile ? Penicillins including Ampicillin and Piperacillin, but susceptible to B- ? lactamase sabiha Penicillins ? (Nafcillin), B-lactamase inhibitor combinations, first and second ? generation Cephalosporins including ? Cefazolin, and to Cefepime and Meropenem. ? CERNER MILLENNIUM Specimen from abdominal cavity (specimen) 11/25/2014 4:20 PM EDT 11/25/2014 4:20 PM EDT Narrative Resulting Agency Comment Spec In Lab Hiram Nascimento MD MICROBIOLOGY - GENER AL ORDERABLES [facility] documented in this encounter Visit Diagnoses Diagnosis S/P panniculectomy Elastosis of skin Other specified hypertrophic and atrophic condition of skin documented in this encounter Care Teams Soaking Pit Operator Relationship Specialty Start Date End Date Avery Caballero MD [address] [place] [address] PCP - General 04/15/14 documented as of this encounter
--- OUTSIDE RECORDS SUMMARY | 2024-08-22 20:51 | XMS_ITS | Encounter Summary ---
[place] [address] Care Team Providers Care Revenue Audit Clerk Name Role Phone Avery Caballero MD Primary Care Provider Encounter Details Date Type Department Care Team (Late st Contact Info) Description 06/19/2014 10:58 AM EDT - 06/19/2014 4:26 PM EDT Surgery [place] [address] Hiram Nascimento MD ABDOMINOPLASTY EXC,W/ UMBILICAL TRANSPOSITION, FASCIAL PLICATION (WRVU [...] from each drain. Call the clinic at [phone] and schedule an appointment with the nurses [...] Sunday 8 am to 5 pm Call [phone] On weekends or after hours: Call [phone] and ask the bleaching machine operator to page the Plastic Surgery Resident consumer affairs specialist. Prescription Line: Call the line at [phone] from 8am-4pm Sunday through Sunday. Narcotic renewals will not be honored after hours or on weekends. Make your request a few days before you run out as it make take up to 24 hours for physician approval. * Attachments The following attachments cannot be sent through Care Everywhere. * SURGICAL DRAIN CARE (SAMOAN) documented in this encounter Medications at Time of Discharge Medication Sig Dispensed Refills Start Date End Date montelukast (SINGULAIR) 10 mg tablet Take 10 mg by mouth nightly. fluticasone (FLONASE) 50 mcg/actuation nasal spray 1 spray daily. Cholecalciferol, Vitamin D3, 2,000 unit Cap Take by mouth. FERROUS FUMARATE/VIT BCOMP&C (SUPER B COMPLEX ORAL) Take by mouth. Pjbagzwqtskfs-Ld-Gkf n-Minerals Tab Take by mouth. Women's one [...] plans to d/c home today. 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 Going home with 4 drains but she knowshow to care for them and measure I&O. No need for home services. CRC remains available as needed for coordination of care and discharge planning. Pricilla Chawla RN Office of Care Management Clinical Sub Prior Covering for Yaquelin Celis Pager [phone] * Latoya Samuels RN - 06/22/2014 10:21 [...] full assessment. LATOYA SAMUELS, RN * Charlotte Arrington RN - 06/21/2014 5:13 PM EDT I assumed care of this pt from [phone]. I agree with the previous nurse's assessment. [...] which worsened when she tried to use organic gardening teacher Still uncomfortable and taking tylenol Tolerating sips, [...] DVT prophylaxis- SCDs Latoya Lozano MD, Pager [phone] * Melissa Campbell RN - 06/19/2014 7:08 PM EDT 0-Handoff report received from Sophie Farmer Pt resting comfortably, denies pain or n/v. [address] draining scant amount of serosanguinous drainage. Thigh and abdomen compression wear in place. VSS. 5- Pt meets PACU discharge criteria. Handoff report [...] Hannah Ling Patient Age: 49 y.o. Language: South African Race: White Ethnicity: Not nor Admit date: [...] loss. She previously underwent bariatric surgery in [place] and remains in the program. She broughther labs with her today which all showed normal results. Hospital Course: Patient was admitted electively to [facility] via the same day surgery [...] by mouth nightly. 10 mg Refills: 0 Hycnhekkxxggy-Sc-Glnq-Minerals Tab Take by mouth. Women's one a [...] from each drain. Call the clinic at [phone] and schedule an appointment with the nurses [...] Sunday 8 am to 5 pm Call [phone] On weekends or after hours: Call [phone] and ask the bleaching machine operator to page the Plastic Surgery Resident consumer affairs specialist. Prescription Line: Call the line at [phone] from 8am-4pm Sunday through Sunday. Narcotic renewals will not be honored after hours or on weekends. Make your request a few days before you run out as it make take up to 24 hours for physician approval. General Instructions None Future Appointments and Orders Future Appointments: Provider: Department: Dept Phone: Center: 07/02/2014 11:15 AM Varsha Lima APRN Plastic Surgery [phone] [facility] Follow-Up: Future Appointments Date Time Provider Department Center 07/02/2014 11:15 AM Varsha Lima APRN [facility] Primary Care Provider: AVERY CABALLERO MD [phone] Follow-up Recommendations for Providers: Please see discharge [...] was managed by the Plastic SurgeryTeam at [facility]. If you haveany questions or concerns, please feel free to contact us. Provider Contact Information: Plastic Surgery Clinic: [facility] (after business hours): * Plan [...] Swann MD - 06/19/2014 8:50 PM EDT [facility] Operative Note Patient Name: Hannah Ling : [id number] MR#: [id number] Case Date: 06/19/2014 Surgeon: Surgeon(s) and Role: [...] Operative Note Patient Name: Hannah Ling : [id number] MR#: [id number] Case Date: 06/19/2014 Surgeon: Surgeon(s) and Role: [...] AM EDT Hospital Encounter [place] [address] Frantz Caraballo MD [facility] [place] [address] 01/06/2025 7:30 AM EDT - 01/06/2025 12:15 PM EDT Surgery [place] [address] Frantz Caraballo MD [facility] [place] [address] EXCISION, SKIN AND SUB-Q TISSUE, ARM-IHRAL (WRVU 10.61) Scheduled Procedures Name Priority Associated [...] Hiram Nascimento MD HEMATOLOGY ORDERABLE S CERNER YOUNGENNIUM * (ABNORMAL) Hemogram (06/19/2014 6:30 PM EDT) [...] Standard Deviation 40.3 35.0 - 46.0 fL SENA SESAY RDW coefficient of variation 12.5 10.9 - 14.4 % SENA EVANSIUM Mean Platelet Volume 12.1(H) 9.0 - 12.0 fL SENA SESAY Blood specimen (specimen) 06/19/2014 6:30 PM EDT 06/19/2014 7:11 PM EDT Narrative Resulting Agency Comment Spec In Lab Hiram Nascimento MD HEMATOLOGY ORDERABLE S Performing Organization Address [facility] Co de Phone Number SENA SESAY * Antibody screen (06/19/2014 1:10 PM EDT) Ab Screen Interp Negative SENA SESAY Expires at 2359 on: [id number] SENA SESAY Blood specimen (specimen) 06/19/2014 1:10 PM EDT 06/19/2014 1:10 PM EDT Narrative Resulting Agency Comment Spec In Lab Hiram Nascimento MD BLOOD BANK LAB ORDER GARETH Performing Organization Address [facility] de Phone Number SENA SESAY * ABO/Rh Typing (06/19/2014 1:10 PM EDT) Pathologist [facility] ABORH Type O Pos [facility] Blood specimen (specimen) 06/19/2014 1:10 PM EDT 06/19/2014 1:10 PM EDT Narrative Resulting Agency Comment Spec In Lab Hiram Nascimento MD BLOOD BANK LAB ORDER GARETH Performing Organization Address [facility] Co de Phone Number [facility] * POCT HGB (06/19/2014) Pathologist [facility] POC Hemoglobin 14.2 g/dL Hiram Nascimento MD POINT OF CARE TEST O RDERABLES documented in this encounter Visit Diagnoses Not on filedocumented in this encounter Administered Medications Inactive Administered Medications - up to 3 most recent administrations Medication Order MAR Action Action Date Dose Rate Site EPINEPHrine (PF) injection Soln ONCE PRN, Starting on Sun06/19/14 at 1403, Until Sun06/19/14 at 2005, Intra-Operative (Intra-Procedure), Routine Given 06/19/2014 2:03 PM [...] 0917 (Given - Provider: Akash Huertas RN) 0802 (Given - Provider: Latoya Samuels RN) esomeprazole (NexIUM) capsule 40 mg (CANCELED) 40 mg, Oral, DAILY, First dose on Sun06/19/14 at 2100, Until Discontinued, Therapeutic interchange for home omeprazole, Routine 0905 (Given - Provider: Patrick Casillas RN) 0915 [...] Huertas RN) 0801 (Given - Provider: Latoya A Mock, RN) sodium chloride 0.9 % flush 5 mL (CANCELED) 5 mL, Intravenous, 2 TIMES DAILY, First dose on Sun06/19/14 at 2100, Until Discontinued, Routine 0900 (Not Given - Provider: Patrick Casillas RN - Reason: See comment - Comment: IV infusing)2239 (Given - Provider: Daniela Warner RN) 0931 (Given - Provider: Akash Huertas, RAFAL)2100 (Given - Provider: Reynaldo Naylor RN) 0803 [...] Huertas RN)1628 (Given - Provider: Charlotte Arrington RAFAL) ondansetron (ZOFRAN) injection 4 mg (COMPLETED) 4 [...] Patrick Casillas RN)1653 (Given - Provider: Carolina Matthew RN)2159 (Given - Provider: Daniela Warner RN) 0206 (Given - Provider: Daniela Warner RN)0615 [...] RN) documented in this encounter Care Teams Revenue Audit Clerk Relationship Specialty Start Date End Date Avery Caballero MD [address] [place] [address] PCP - General 04/15/14 documented as of this encounter
--- OUTSIDE RECORDS SUMMARY | 2024-08-22 20:51 | XMS_ITS | Encounter Summary ---
[place] [address] Care Team Providers Care Cook Night Name Role Phone Avery Caballero MD Primary Care Provider [phone] Reason for Visit * Reason Comments Follow Up Surgery s/p abdominoplasty, thighplasty 06/19, ? hernia Encounter Details Date Type Department Care Team (Late st Contact Info) Description 09/30/2014 9:45 AM EST [place] [address] Hiram Barrow MD Abdominal pannus Discharge Disposition: Home Social History [...] 149.2 cm (4' 10.75) 09/30/2014 9:[address] Body Mass Index 35.61 09/30/2014 9:52 AM [...] today: CT scan today results reviewed with library technician reveals eliana colonic edema and vascular [...] AM EDT Hospital Encounter [place] [address] Frantz Caraballo MD [facility] [place] [address] 01/06/2025 7:30 AM EDT - 01/06/2025 12:15 PM EDT Surgery [place] [address] Frantz Caraballo MD [facility] [place] [address] EXCISION, SKIN AND SUB-Q TISSUE, ARM-HIRAL (WRVU [...] pannus Localized adiposity Abdominal pannus Localized adiposity Elastosis of skin Other specified hypertrophic and atrophic condition of skin documented in this encounter Care Teams Cook Night Relationship Specialty Start Date End Date Avery Caballero MD [address] [place] [address] PCP - General 04/15/14 documented as of this encounter
--- OUTSIDE RECORDS SUMMARY | 2024-08-22 20:51 | XMS_ITS | Encounter Summary ---
Author Organization [facility] [place] [address] Care Team Providers Care Driving School Instructor Name Role Phone Avery Caballero MD Primary Care Provider [phone] Encounter Details Date Type Department Care Team (Late st Contact Info) Description 10/06/2014 4:00 PM EST - 10/06/2014 5:00 PM EST Surgery [place] [id number] Bassem Allred MD [facility] [place] [address] COLONOSCOPY FLEXIBLE, WITH BX (WRVU 3.56) Social [...] you need to be checked. Sunday-Sunday Clinic [phone] 8a-5p Same Day Endo [phone] 7a-8p Otherwise contact [phone] and ask to speak to the weed science research technician consumer studies professor Follow up care is a tian part [...] (SUPER B COMPLEX ORAL) Take by mouth. Zmovemdihllnr-Ew-Xpqd- Minerals Tab Take by mouth. Women's one [...] WONG : 1965 Age: 49 y.o. Address: [address] [place] [phone] (home) Mobile: No relevant phone numbers on [...] PLICATION performed by Hiram Barrow MD at [facility] MAIN OR ??? Excise excess skin tissue, thigh 06/19/2014 EXCISION EXCESSIVE SKIN AND TISSUE-THIGH performed by Hiram Barrow MD at [facility] MAIN OR ??? Suct jamin lipectomy, low extrem 06/19/2014 SUCTION ASSISTED LIPECTOMY, LOWER EXTREMITY-HIRAL performed by Hiram Barrow MD at [facility] MAIN OR ??? Appendectomy Medications: Prior to [...] COMPLEX ORAL) Take by mouth. Provider, Historical Dmrauzoylvvtx-Xh-Ggqh-Minerals Tab Take by mouth. Women's one a [...] AM EDT Hospital Encounter [place] [address] Frantz Caraballo MD [facility] [place] [address] 01/06/2025 7:30 AM EDT - 01/06/2025 12:15 PM EDT [place] [address] Frantz Caraballo MD [facility] [place] [address] EXCISION, SKIN AND SUB-Q TISSUE, ARM-HIRAL (WRVU [...] (10/06/2014 4:58 PM EST) Final Diagnosis ? [facility] ? Provider: ?? BASSEM ALLRED ?Pt. Name: ?? HANNAH WONG S ? Acc #: ?[id number] ?Pt. ? Col Date: ?? 10/06/2014 ?/Sex: [...] Diagnosis: ? Same 10/08/2014 2:58 PM EST [facility] GI Biopsy 10/06/2014 4:58 PM EST 10/06/2014 4:58 PM EST GI Biopsy 10/06/2014 4:58 PM EST 10/06/2014 4:58 PM EST Bassem Allred MD PATHOLOGY/CYTOLOGY O LOW Performing Organization Address [facility] Co de Phone Number [facility] [place] [address] * Specimen to Pathology (surgical or derm) (10/06/2014 4:58 PM EST) AP Specimen 10/06/2014 4:58 PM EST 10/06/2014 4:58 PM EST Narrative SENA YOUNGISISRINA - 10/06/2014 4:58 PM EST Specimen requisition ordered. ??Separate Pathology report to follow Bassem Allred MD PATHOLOGY/CYTOLOGY O LOW Performing Organization Address [facility] Co de Phone Number SENA SESAY * Specimen to Pathology (surgical or derm) (10/06/2014 4:58 PM EST) AP Specimen 10/06/2014 4:58 PM EST 10/06/2014 4:58 PM EST Narrative TYLANA SESAY - 10/06/2014 4:58 PM EST Specimen requisition ordered. ??Separate Pathology report to follow Bassem Allred MD PATHOLOGY/CYTOLOGY O LOW Performing Organization Address [facility] Co de Phone Number SENA SESAY * UPPER GI ENDOSCOPY (10/06/2014 3:38 PM EST) UPPER GI ENDOSCOPY [facility] Endoscopy Patient Name: Hannah Wong ? Procedure Date: 10/06/2014 3:38 PM ? Date of : 1965 ? Age: 49 ? Order #: [id number] ? Procedure: ? Upper GI endoscopy Indications: ? Generalized abdominal pain, Anemia Providers: ? Bassem Allred MD, Guera Salmeron, ? RN, Murphy Eldridge, Supervisor Wound Referring : ?Avery Caballero MD, Yesenia Zuniga ? Osorio, SOFTWARE INSTALLATION ENGINEER Medicines: ? Midazolam 1.5 mg IV, Fentanyl [...] * COLONOSCOPY (10/06/2014 3:37 PM EST) COLONOSCOPY [facility] Endoscopy Patient Name: Hannah Wong ? Procedure Date: 10/06/2014 3:37 PM ? N: [id number] ? Date of : 1965 ? Age: 49 ? Order #: [id number] ? Procedure: ? Colonoscopy Indications: ? Abdominal pain, thickened ascending ? colon on CT scan, anemia Providers: ? Bassem Allred MD, Guera Salmeron, ? RN, Murphy Eldridge, Supervisor Wound Referring MD: ?Avery Caballero MD, Yesenia Zuniga [...] right upper quadrant Constipation, unspecified constipation type Elastosis of skin Other specified hypertrophic and atrophic condition of skin documented in this encounter Administered Medications Inactive Administered Medications - up to 3 most recent administrations Medication Order MAR Action Action Date Dose Rate Site fentaNYL 50 mcg/mL multi-dose injection ONCE PRN, Starting on 10/06/14 at 1609, Until Tue 15 at 1806, Intra-Operative (Intra-Procedure), Routine Given 10/06/2014 [...] mg/mL multi-dose injection ONCE PRN, Starting on 10/06/14 at 1609, Until 10/06/14 at 1806, Intra-Operative (Intra-Procedure), Routine Given 10/06/2014 [...] RN) documented in this encounter Care Teams Driving School Instructor Relationship Specialty Start Date End Date Avery Caballero MD [address] [place] [address] PCP - General 04/15/14 documented as of this encounter
--- OUTSIDE RECORDS SUMMARY | 2024-08-22 20:51 | XMS_ITS | Encounter Summary ---
Author Organization [facility] [place] [address] Care Team Providers Care Box Toe Stitcher Name Role Phone Avery Caballero MD Primary Care Provider [phone] Encounter Details Date Type Department Care Team (Late st Contact Info) Description 06/19/2014 11:57 AM EDT Anesthesia Event [place] [id number] Lukas Betts MD [facility] [place] [address] Cherry Goncalves MD [facility] [place] [address] Anesthesia Record Procedure Summary Procedure Name Responsible [...] Left; groi n; collapsible closed device; 19 Samoan Spencer drain. 06/19/14 0000 by Nicole Dee RN Drain/Device Site 06/19/14; Right; erick in; collapsible closed device; 19 Samoan Spencer drain. 06/19/14 0000 by Nicole Dee [...] none; drainage bag to dependent drainage; 06/20/14; 2230 06/19/14 0000 by Nicole Dee RN 06/20/14 2230 by Daniela Warner RN Drain/Device Site 06/19/14; Left; uppe r; thigh; collapsible closed device; 15 fr spencer drain; 10/06/14; 1806 06/19/14 0000 by Hannah Perdomo RN 10/06/14 180 by Jacinda Woods RN (RETIRED) Peripheral IV Line - Single Lumen metacarpal vein right (top of hand); bsez-mpr-msyiqu catheter system; 20 gauge; 06/22/14; 1235 06/19/14 1218 by 06/22/14 1235 by Latoya Staley RN (RETIRED) Peripheral IV Line - Single Lumen basilic vein left (medial side of arm); kwpp-oge-zopnnj catheter system; 18 gauge; pt. restless on [...] to blood products. Plan discussed with attending. Misc. Assessment: documented in this encounter Plan of Treatment Upcoming Encounters Date Type Department Care Team (Latest Contact Info) Description 01/06/2025 7:30 AM EDT Hospital Encounter [place] [address] Frantz Caraballo MD [facility] [place] [address] 01/06/2025 7:30 AM EDT - 01/06/2025 12:15 PM EDT Surgery [place] [address] Frantz Caraballo MD [facility] [place] [address] EXCISION, SKIN AND SUB-Q TISSUE, ARM-HIRAL (WRVU [...] Sun06/19/14 at 1159, Until Sun06/19/14 at 1812, Sleep, Anesthesia Intra-op, Routine Given 06/19/2014 11:59 [...] PRN, Starting on Sun06/19/14 at 1309, Until Sun06/19/14 at 1812, Anesthesia Intra-op, Routine Given 06/19/2014 1:09 PM EDT 30 mg Given 06/19/2014 12:08 PM EDT 50 mg documented in this encounter Care Teams Box Toe Stitcher Relationship Specialty Start Date End Date Avery Caballero MD [address] [place] [address] PCP - General 04/15/14 documented as of this encounter
--- OUTSIDE RECORDS SUMMARY | 2024-08-22 20:51 | XMS_ITS | Encounter Summary ---
[place] [address] Care Team Providers Care Station Mechanic Apprentice Name Role Phone Avery Caballero MD Primary Care Provider Encounter Details Date Type Department Care Team (Latest Contact Info) Description 06/21/2014 12:28 PM EDT - 06/22/2014 1:30 PM EDT Hospital Encounter [address] [place] [phone] Hiram Nascimento MD Discharge Disposition: Home Social History Tobacco Use [...] from each drain. Call the clinic at [phone] and schedule an appointment with the nurses [...] Sunday 8 am to 5 pm Call [phone] On weekends or after hours: Call [phone] and ask the briquette operator to page the Plastic Surgery Resident supervisor electron tube processing. Prescription Line: Call the line at [phone] from 8am-4pm Sunday through Sunday. Narcotic renewals will not be honored after hours or on weekends. Make your request a few days before you run out as it make take up to 24 hours for physician approval. * Attachments The following attachments cannot be sent through Care Everywhere. * SURGICAL DRAIN CARE (AMHARIC) documented in this encounter Medications at Time of Discharge Medication Sig Dispensed Refills Start Date End Date montelukast (SINGULAIR) 10 mg tablet Take 10 mg by mouth nightly. fluticasone (FLONASE) 50 mcg/actuation nasal spray 1 spray daily. Cholecalciferol, Vitamin D3, 2,000 unit Cap Take by mouth. FERROUS FUMARATE/VIT BCOMP&C (SUPER B COMPLEX ORAL) Take by mouth. Xbasodzpqmqjm-Tv-Chw n-Minerals Tab Take by mouth. Women's one [...] plans to d/c home today. 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 Going home with 4 drains but she knowshow to care for them and measure I&O. No need for home services. CRC remains available as needed for coordination of care and discharge planning. Pricilla Chawla RN Office of Care Management Clinical Switchboard Manager Covering for Yaquelin Celis Pager [phone] * Latoya Samuels RN - 06/22/2014 10:21 [...] assessment. LATOYA SAMUELS, RN * Charlotte Arrington, RAFAL - 06/21/2014 5:13 PM EDT I assumed care of this pt from [phone]. I agree with the previous nurse's assessment. [...] which worsened when she tried to use wool grader Still uncomfortable and taking tylenol Tolerating sips, [...] DVT prophylaxis- SCDs Latoya Lozano MD, Pager [phone] * Melissa Campbell RN - 06/19/2014 7:08 [...] Hannah Ling Patient Age: 49 y.o. Language: Kosovan Race: White Ethnicity: Not nor Admit date: [...] loss. She previously underwent bariatric surgery in [place] and remains in the program. She broughther labs with her today which all showed normal results. Hospital Course: Patient was admitted electively to [facility] via the same day surgery program and [...] Weight: Wt Readings from Last 1 Encounters: // 80.287 kg (177 lb) Height: Ht Readings [...] by mouth nightly. 10 mg Refills: 0 Tqnornuhkxyay-Ze-Oojj-Minerals Tab Take by mouth. Women's one a [...] from each drain. Call the clinic at [phone] and schedule an appointment with the nurses [...] Sunday 8 am to 5 pm Call [phone] On weekends or after hours: Call [phone] and ask the briquette operator to page the Plastic Surgery Resident supervisor electron tube processing. Prescription Line: Call the line at [phone] from 8am-4pm Sunday through Sunday. Narcotic renewals will not be honored after hours or on weekends. Make your request a few days before you run out as it make take up to 24 hours for physician approval. General Instructions None Future Appointments and Orders Future Appointments: Provider: Department: Dept Phone: Center: 07/02/2014 11:15 AM Varsha Lima APRN Plastic Surgery [phone] [facility] Follow-Up: Future Appointments Date Time Provider Department Center 07/02/2014 11:15 AM Varsha Lima APRN [facility] Primary Care Provider: AVERY CABALLERO MD [phone] Follow-up Recommendations for Providers: Please see discharge [...] [facility] managed [facility]. If you haveany questions or concerns, please feel free to contact us. Provider Contact Information: Plastic Surgery Clinic: [facility] (after business hours): * Plan of Care [...] Swann MD - 06/19/2014 8:50 PM EDT [facility] Operative Note Patient Name: Hannah Ling : [id number] MR#: [id number] Case Date: 06/19/2014 Surgeon: Surgeon(s) and Role: [...] wound bed. The incision was closed with [place]'s technique of securing the oliva perficial fascia [...] Operative Note Patient Name: Hannah Ling : [id number] MR#: [id number] Case Date: 06/19/2014 Surgeon: Surgeon(s) and Role: [...] AM EDT Hospital Encounter [place] [address] Frantz Caraballo MD [facility] [place] [address] 01/06/2025 7:30 AM EDT - 01/06/2025 12:15 PM EDT Surgery [place] [address] Frantz Caraballo MD [facility] [place] [address] EXCISION, SKIN AND SUB-Q TISSUE, ARM-HIRAL (WRVU [...] Volume 12.1(H) 9.0 - 12.0 fL SENA EVANSIUM Blood specimen (specimen) 06/19/2014 6:30 PM EDT 06/19/2014 7:11 PM EDT Narrative Resulting Agency Comment Spec In Lab Hiram Nascimento MD HEMATOLOGY ORDERABLE S Performing Organization Address [facility] de Phone Number SENA SESAY * Antibody screen (06/19/2014 1:10 PM EDT) Ab Screen Interp Negative SENA EVANSIUM Expires at 2359 on: [id number] SENA SESAY Blood specimen (specimen) 06/19/2014 1:10 PM EDT 06/19/2014 1:10 PM EDT Narrative Resulting Agency Comment Spec In Lab Hiram Nascimento MD BLOOD BANK LAB ORDER GARETH Performing Organization Address [facility] de Phone Number SENA SESAY * ABO/Rh Typing (06/19/2014 1:10 PM EDT) ABORH Type O Pos SENA SESAY Blood specimen (specimen) 06/19/2014 1:10 PM EDT 06/19/2014 1:10 PM EDT Narrative Resulting Agency Comment Spec In Lab Hiram Nascimento MD BLOOD BANK LAB ORDER GARETH Performing Organization Address [facility] de Phone Number SENA SESAY * POCT HGB (06/19/2014) POC [...] PRN, Starting on Sun06/19/14 at 2019, Until Sun06/22/14 at 1531, Pain, for MODERATE pain, Do [...] on Sun06/20/14 at 0600, Until Discontinued, Routine Given 06/22/2014 [...] EDT 2 puffs HYDROmorphone (DILAUDID) 1 mg/mL [employer] 30 mL Intravenous, [employer] ONLY, Starting on Sun06/19/14 at 1845, Until [...] doses, Starting on Sun06/19/14 at 2019, Until Sun06/22/14 at 1531, Nausea, May repeat in 30 minutes if no relief from previous dose. HOLD if patient is sedated. Maximum dose is 40 mg in 24 hours., Routine Given 06/19/2014 11:11 PM EDT 5 mg scopolamine (TRANSDERM-SCOP) 1.5 mg patch 1 dose, Starting on Sun06/19/14 at 1146, Until Sun06/19/14 at 1154, VINNY HURT: cabinet override Given 06/19/2014 11:54 AM EDT [...] Oral, 2 TIMES DAILY, First dose on 06/19/14 at 2130, Until Discontinued, Routine Given 06/22/2014 [...] 40 mg, Oral, DAILY, First dose on 10/17/14 at 2100, Until Discontinued, Therapeutic interchange for [...] RN) 0916 (Given - Provider: Akash Huertas RN)5 (Given - Provider: Reynaldo Naylor RN) 0802 (Given - Provider: Latoya Smauels RN) lactobacillus (BACID) tablet 1 tablet (CANCELED) [...] Akash Huertas RN)2100 (Given - Provider: Reynaldo Naylor, RAFAL) 0803 (Given - Provider: Latoya Samuels RN) ursodiol (ACTIGALL) capsule 300 mg (CANCELED) 300 mg, Oral, 2 TIMES DAILY, First dose on Sun06/19/14 at 2130, Until Discontinued, Routine 0905 (Given - Provider: Patrick Caisllas RN) 0001 (Given - Provider: Daniela Warner RN - Comment: Missing Med)0914 (Given - Provider: Akash Huertas RN)2100 (Given - Provider: Reynaldo Naylor, RAFAL) 0802 (Given - Provider: Latoya Samuels RN) [...] Warner RN) 0442 (Given - Provider: Daniela K Warner, RN)1008 (Given - Provider: Akash Huertas RN)1628 [...] Naylor RN)0801 (Given - Provider: Latoya Samuels RN)1947 (Given - Provider: Latoya Samuels RN) documented in this encounter Care Teams Station Mechanic Apprentice Relationship Specialty Start Date End Date Avery Caballero MD [address] [place] [address] PCP - General 04/15/14 documented as of this encounter
--- OUTSIDE RECORDS SUMMARY | 2024-08-22 20:51 | XMS_ITS | Encounter Summary ---
Author Organization [facility] [place] [address] Care Team Providers Care Satellite Tv Installer Name Role Phone Avery Caballero MD Primary Care Provider [phone] Encounter Details Date Type Department Care Team (Late st Contact Info) Description 10/19/2014 Orders [place] [phone] Yesenia Ac, BUYER ASSISTANT Social History Tobacco Use Types Packs/Day Years [...] AM EDT Hospital Encounter [place] [address] Frantz Caraballo MD [facility] [place] [address] 01/06/2025 7:30 AM EDT - 01/06/2025 12:15 PM EDT Surgery [place] [address] Frantz Caraballo MD [facility] [place] [address] EXCISION, SKIN AND SUB-Q TISSUE, ARM-HIRAL (WRVU [...] is a Non-reportable exam Yesenia Ac APRN G FILM LIBRARY ORD ERABLES documented in this encounter Visit Diagnoses Not on filedocumented in this encounter Care Teams Satellite Tv Installer Relationship Specialty Start Date End Date Avery Caballero MD [address] [place] [address] PCP - General 04/15/14 documented as of this encounter
--- OUTSIDE RECORDS SUMMARY | 2024-08-22 20:51 | XMS_ITS | Encounter Summary ---
[place] [address] Care Team Providers Care Aquatics Coordinator Name Role Phone Avery Caballero MD Primary Care Provider [phone] Reason for Visit * Auth/Cert Specialty Diagnoses / Procedures Referred By Kiarra banuelos Referred To Contact Diagnoses Hypertrophy of breast Unspecified hypertrophic and atrophic condition of skin macromastia Procedures PRO REDUCTION OF LARGE BREAST PRO EXCISE EXCESS SKIN TISSUE, ARM PRO SUCT BERTO LIPECTOMY, TRUNK REDUCTION MAMMOPLASTY, HIRAL Referral ID Status Reason Start Date Expiration Date Visits Re quested Visits Authorized [id number] 1 1 Encounter Details Date Type Department Care Team (Latest Contact Info) Description 07/23/2015 10:46 AM EST - 07/23/2015 9:13 PM EST Hospital [place] [address] Hiram Barrow MD Discharge Disposition: Home Social History Tobacco [...] is during regular office hours, please call [phone]. If it is after regular office hours, or on weekends or holidays, please call [phone] and ask to speak to the Director Security Risk Management public information coordinator for Interventional Radiology. You have received medication [...] or foul drainage occurs, please contact your MGenesis D. [facility] NAME: Date of Surgery: Date: [...] is during regular office hours, please call [phone]. If it is after regular office hours, or on weekends or holidays, please call [phone] and ask to speak to the Director Security Risk Management public information coordinator for Interventional Radiology. You have received medication [...] occurs, please contact your M. D. 09/15/11 [facility] Drainage Record NAME: Date of Surgery: Date: [...] good night sleep. Pain (short term and shelter) ?? With any surgery there is some discomfort or pain. We will prescribe pain medication. Take as prescribed and only as needed. OK to take prescription medication or Tylenol. Do not take both. OK to add Ibuprofen 48 hours after surgery. ?? We recommend taking an osie-gzj-Wdysufc stool softener, such as Colace (docusate) or [...] scheduling, please contact our administrative offices at [phone] ?? For clinical questions, please call our nurses at [phone] ?? Both offices are open Sunday thru Sunday 8a - 5p. With emergencies after hours, call the hospital plug machine operator at [phone] and ask for the Plastic Surgery Resident public information coordinator. documented in this encounter Medications at Time [...] (SUPER B COMPLEX ORAL) Take by mouth. Beuddsjjwqlho-Qx-Lne n-Minerals Tab Take by mouth. Women's one [...] Operative Note Patient Name: Hannah Ling : [id number] MR#: [id number] Case Date: 07/23/2015 Surgeon: Surgeon(s) and Role: * Hiram Barrow MD - Primary * Marisa Scruggs MD - Resident-Surgeon Chief Preoperative diagnosis: macromastia Postoperative diagnosis: macromastia Procedure(s): REDUCTION MAMMOPLASTY, HIRAL EXCISION, SKIN AND SUB-Q TISSUE, ARM-HIRAL SUCTION ASSISTED LIPECTOMY,TRUNK-- Liposuction volume 300 ml IV Anesthesia: General Complications: None Fluids: 2L Estimated Blood Loss: 400 mL Drains: 4, 15F ANJLE drains Disposition: awakened from anesthesia, extubated and [...] team members agreed to proceed according to [facility] protocol. The procedure was begun by getting [...] Bovie for cautery, hemostasis was confirmed. The 15-English ANJEL drains were then introduced into each [...] Operative Note Patient Name: Hannah Ling : [id number] MR#: [id number] Case Date: 07/23/2015 Surgeon: Surgeon(s) and Role: [...] AM EDT Hospital Encounter [place] [address] Frantz Caraballo MD [facility] [address] 01/06/2025 7:30 AM EDT - 01/06/2025 12:15 PM EDT [place] [address] Frantz Caraballo MD [facility] [place] [address] EXCISION, SKIN AND SUB-Q TISSUE, ARM-HIRAL (WRVU [...] rendered or confirmed the diagnosis(es). Accession Number: [id number] ?Location: [facility]; A . ?Surgical Pathology DIAGNOSIS A - [...] submitted. ?? sns 07/28/2015 12:27 PM EST [facility] ABDOMEN / Unknown 07/23/2015 2:37 PM EST 07/23/2015 2:37 PM EST BREAST STRUCTURE / Unknown 07/23/2015 2:37 PM EST 07/23/2015 2:37 PM EST ABDOMEN / Unknown 07/23/2015 2:37 PM EST 07/23/2015 2:37 PM EST ABDOMEN / Unknown 07/23/2015 2:37 PM EST 07/23/2015 2:37 PM EST Hiram Barrow MD PATHOLOGY/CYTOLOGY O RDERABLES [facility] [place] [address] * Specimen to Pathology (surgical or derm) (07/23/2015 2:37 PM EST) AP Specimen 07/23/2015 2:37 PM EST 07/23/2015 2:37 PM EST Narrative CERNER CRISTINAIUM - 07/23/2015 2:37 PM EST Specimen requisition ordered. ??Separate Pathology report to follow Hiram Barrow MD PATHOLOGY/CYTOLOGY O [facility]ANDICE [facility] * Specimen to Pathology (surgical or derm) (07/23/2015 2:37 PM EST) AP Specimen 07/23/2015 2:37 PM EST 07/23/2015 2:37 PM EST Narrative TYNER CRISTINAIUM - 07/23/2015 2:37 PM EST Specimen requisition ordered. ??Separate Pathology report to follow Hiram Barrow MD PATHOLOGY/CYTOLOGY O LOW Performing Organization Address [facility]/ZIP Co de Phone Number [facility] * Specimen to Pathology (surgical or derm) (07/23/2015 2:37 PM EST) AP Specimen 07/23/2015 2:37 PM EST 07/23/2015 2:37 PM EST Narrative SENA EVANSIUM - 07/23/2015 2:37 PM EST Specimen requisition ordered. ??Separate Pathology report to follow Hiram Barrow MD PATHOLOGY/CYTOLOGY O LOW Performing Organization Address [facility]/State/ZIP Co de Phone Number [facility] * Specimen to Pathology (surgical or derm) (07/23/2015 2:37 PM EST) AP Specimen 07/23/2015 2:37 PM EST 07/23/2015 2:37 PM EST Narrative SENA SESAY - 07/23/2015 2:37 PM EST Specimen requisition ordered. ??Separate Pathology report to follow Hiram Barrow MD PATHOLOGY/CYTOLOGY O LOW [facility] * POCT HGB (07/23/2015 11:06 AM EST) [...] Transdermal, EVERY 72 HOURS, First dose on 07/25/15 at 2000, Until Discontinued, Remove scopolamine 1.5 mg patch documented in this encounter Care Teams Aquatics Coordinator Relationship Specialty Start Date End Date Avery Caballero MD [address] [place] [address] PCP - General 04/15/14 documented as of this encounter
--- OUTSIDE RECORDS SUMMARY | 2024-08-22 20:51 | XMS_ITS | Encounter Summary ---
[place] [address] Care Team Providers Care Pipe Coverer Helper Name Role Phone Avery Caballero MD Primary Care Provider [phone] Encounter Details Date Type Department Care Team (Late st Contact Info) Description 09/30/2014 Telephone [place] [phone] Yesenia Ac APRN Social History Tobacco Use Types Packs/Day Years [...] Encounter [place] [address] Frantz Caraballo MD [facility] [place] [address] 01/06/2025 7:30 AM EDT - 01/06/2025 12:15 PM EDT Surgery [place] [address] Frantz Caraballo MD [facility] [place] [address] EXCISION, SKIN AND SUB-Q TISSUE, ARM-HIRAL (WRVU 10.61) Scheduled Procedures Name Priority Associated Diagnoses Date/Ti me EXCISION, SKIN AND SUB-Q TIS XAVI, ARM-HIRAL (WRVU 10.61) Elastosis of skin 01/06/2025 7:30 AM EDT EXC EXCESSIVE SKIN & SUBQ TISSUE, OTHER AREA (WRVU 10.5) Elastosis of skin 01/06/2025 7:30 AM EDT documented as of this encounter Visit Diagnoses Diagnosis Anemia, unspecified anemia type Elastosis of skin Other specified hypertrophic and atrophic condition of skin documented in this encounter Care Teams Pipe Coverer Helper Relationship Specialty Start Date End Date Avery Caballero MD [address] [place] [address] PCP - General 04/15/14 documented as of this encounter
--- OUTSIDE RECORDS SUMMARY | 2024-08-22 20:51 | XMS_ITS | Encounter Summary ---
[place] [address] Care Team Providers Care Signal Helper Name Role Phone Avery Caballero MD Primary Care Provider [phone] Reason for Visit * Reason Comments Follow Up Surgery abdominoplasty, thig hplasty: question infection Encounter Details Date Type Department Care Team (Latest Contact Info) Description 07/13/2014 11:00 AM EST Clinical [place] [phone] NURSE, PLASTIC SURGERY Other specified aftercare following [...] 8:12 AM EST Client seen by this specification writer for question of infection at the [...] AM EDT Hospital Encounter [place] [address] Frantz Caraballo MD [facility] [place] [address] 01/06/2025 7:30 AM EDT - 01/06/2025 12:15 PM EDT Surgery [place] [address] Frantz Caraballo MD [facility] [place] [address] EXCISION, SKIN AND SUB-Q TISSUE, ARM-HIRAL (WRVU 10.61) Scheduled Procedures Name Priority Associated Diagnoses Date/Ti me EXCISION, SKIN AND SUB-Q TIS XAVI, ARM-HIRAL (WRVU 10.61) Elastosis of skin 01/06/2025 7:30 AM EDT EXC EXCESSIVE SKIN & SUBQ TISSUE, OTHER AREA (WRVU 10.5) Elastosis of skin 01/06/2025 7:30 AM EDT documented as of this encounter Visit Diagnoses Diagnosis Other specified aftercare following surgery Elastosis of skin Other specified hypertrophic and atrophic condition of skin documented in this encounter Care Teams Signal Helper Relationship Specialty Start Date End Date Avery Caballero MD [address] [place] [address] PCP - General 04/15/14 documented as of this encounter
--- OUTSIDE RECORDS SUMMARY | 2024-08-22 20:51 | XMS_ITS | Encounter Summary ---
[place] [address] Care Team Providers Care Two Way Radio Installer Name Role Phone Avery Caballero MD Primary Care Provider [phone] Reason for Visit * Reason Comments Follow Up Surgery abdominoplasty and t highplasty Encounter Details Date Type Department Care Team (Late st Contact Info) Description 07/01/2014 9:00 AM EDT Office [place] [address] Varsha Lima [facility] [place] [address] Other specified aftercare following surgery (Primary Dx) [...] three days. Please call the clinic at [phone] with any questions or concerns. documented in [...] AM EDT Hospital Encounter [place] [address] Frantz Caraballo MD [facility] [place] [address] 01/06/2025 7:30 AM EDT - 01/06/2025 12:15 PM EDT Surgery [place] [address] Frantz Caraballo MD [facility] [place] [address] EXCISION, SKIN AND SUB-Q TISSUE, ARM-HIRAL (WRVU 10.61) Scheduled Procedures Name Priority Associated Diagnoses Date/Ti me EXCISION, SKIN AND SUB-Q TIS XAVI, ARM-HIRAL (WRVU 10.61) Elastosis of skin 01/06/2025 7:30 AM EDT EXC EXCESSIVE SKIN & SUBQ TISSUE, OTHER AREA (WRVU 10.5) Elastosis of skin 01/06/2025 7:30 AM EDT documented as of this encounter Visit Diagnoses Diagnosis Other specified aftercare following surgery- Primary Elastosis of skin Other specified hypertrophic and atrophic condition of skin documented in this encounter Care Teams Two Way Radio Installer Relationship Specialty Start Date End Date Avery Caballero MD [address] [place] [address] PCP - General 04/15/14 documented as of this encounter
--- OUTSIDE RECORDS SUMMARY | 2024-08-22 20:51 | XMS_ITS | Encounter Summary ---
[place] [address] Care Team Providers Care Citizen Participation Specialist Name Role Phone Avery Caballero MD Primary Care Provider [phone] Encounter Details Date Type Department Care Team (Late st Contact Info) Description 10/21/2014 Telephone [place] [phone] Yesenia Ac APRN Social History Tobacco Use [...] AM EDT Hospital Encounter [place] [address] Frantz Caraballo MD [facility] [place] [address] 01/06/2025 7:30 AM EDT - 01/06/2025 12:15 PM EDT Surgery [place] [address] Frantz Caraballo MD [facility] [place] [address] EXCISION, SKIN AND SUB-Q TISSUE, ARM-HIRAL (WRVU [...] on filedocumented in this encounter Care Teams Citizen Participation Specialist Relationship Specialty Start Date End Date Avery Caballero MD [address] [place] [address] PCP - General 04/15/14 documented as of this encounter
--- OUTSIDE RECORDS SUMMARY | 2024-08-22 20:51 | XMS_ITS | Encounter Summary ---
[place] [address] Care Team Providers Care Home Sales Consultant Name Role Phone Avery Caballero MD Primary Care Provider [phone] Encounter Details Date Type Department Care Team (Latest Contact Info) Description 10/26/2014 7:26 AM EST - 10/26/2014 11:59 PM EST Hospital [place] [address] CLINIC, Hiram Thurston MD S/P abdominoplasty; Right upper quadrant pain Discharge [...] (SUPER B COMPLEX ORAL) Take by mouth. Elicqbkgkthcq-Hq-Fstg- Minerals Tab Take by mouth. Women's one [...] 4:13 PM EST IR Procedure Note A [id number] Procedure: US evaluation of the anterior abdominal wall History: 49 yr old F patient, s/p abdominoplasty on 06/19/14. During the September [address] Barrow, she continued to experience pain in the right lateral sub costal area. A CT scan of the abdomen was performed at [facility] on 09/30/14, demonstrating: Diffuse postsurgical changes in [...] second [place] which showed post operativechanges in the right [...] B COMPLEX ORAL) Take by mouth. ??? Afagnwuxdagxv-Af-Lzcp-Minerals Tab Take by mouth. Women's one a [...] of : 1965 AGE 49 y.o. Address: [address] [place] [phone] (home) Mobile: No relevant phone numbers on [...] performed by Hiram Barrow MD at [facility] OR ??? Excise excess skin tissue, thigh 06/19/2014 EXCISION EXCESSIVE SKIN AND TISSUE-THIGH performed by Hiram Barrow MD at [facility] MA[facility] OR ??? Suct jamin lipectomy, low extrem 06/19/2014 SUCTION ASSISTED LIPECTOMY, LOWER EXTREMITY-HIRAL performed by Hiram Barrow MD at [facility] MA[facility] OR ??? Appendectomy ??? Colonoscopy, biopsy N/A 10/06/2014 COLONOSCOPY FLEXIBLE, WITH BX performed by Bassem Norman MD at [facility] ENDOSCOPY ??? Upper gi endoscopy, biopsy N/A 10/06/2014 EGD WITH BIOPSY performed by Bassem Norman MD at [facility] END[facility] Date/Procedure Med's given/comments Laboratory Results: [...] COMPLEX ORAL) Take by mouth. Provider, Historical Aehllgjjtfzkt-Ee-Hxub-Minerals Tab Take by mouth. Women's one a day gummy Provider, Historical ++++ FOR OUTPATIENT SCAN'S: I have informed this patient that they require a refuse driver to be present and in the building to drive them home after this procedure. In the absence of a refuse driver, IR will not be able to perform this procedure and will need to reschedule. Pt verbalized understanding of these i nstructions during the pre-procedure education via phone. (initials) documented in this encounter Plan of Treatment Upcoming Encounters Date Type Department Care Team (Latest Contact Info) Description 01/06/2025 7:30 AM EDT Hospital Encounter [place] [address] Frantz Caraballo MD [facility] [address] 01/06/2025 7:30 AM EDT - 01/06/2025 12:15 PM EDT Surgery [place] [address] Frantz Caraballo MD [facility] [place] [address] EXCISION, SKIN AND SUB-Q TISSUE, ARM-HIRAL (WRVU [...] second CECT [place] which showed post operative changes in the [...] attending Narrative 10/27/2014 9:37 AM EST A [id number] Procedure: ?? US evaluation of the anterior abdominal wall History: 49 yr old F patient, s/p abdominoplasty on 06/19/14. During the September [address] Barrow, she continued to experience pain in the right lateral sub costal area. A CT scan of the abdomen was performed at [facility] on 09/30/14, demonstrating: Diffuse postsurgical changes in [...] within normal limits. No lymphadenopathy. Procedure Note Kota Hall MD - 10/27/2014 A [id number] Procedure: US evaluation of the anterior abdominal wall History: 49 yr old F patient, s/p abdominoplasty on 06/19/14. During theSeptember [address] Barrow, she continued to experience pain in theright lateral sub costal area. [facility] CT [facility], demonstrating: Diffuse postsurgical changes in the [...] second CECT [place] showed post operative changes in the right [...] quadrant pain Abdominal pain, right upper quadrant Elastosis of skin Other specified hypertrophic and atrophic condition of skin documented in this encounter Care Teams Home Sales Consultant Relationship Specialty Start Date End Date Avery Caballero MD [address] [place] [address] PCP - General 04/15/14 documented as of this encounter
--- OUTSIDE RECORDS SUMMARY | 2024-08-22 20:51 | XMS_ITS | Encounter Summary ---
Author Organization [facility] [place] [address] Care Team Providers Care Engine Hostler Name Role Phone Avery Caballero MD Primary Care Provider [phone] Encounter Details Date Type Department Care Team (Late st Contact Info) Description 10/14/2014 Orders [place] [phone] Yesenia Ac APRN Abdominal pain, unspecified abdominal location Social History [...] AM EDT Hospital Encounter [place] [address] Frantz Caraballo MD [facility] [place] [address] 01/06/2025 7:30 AM EDT - 01/06/2025 12:15 PM EDT Surgery Main Operating Room [facility] [place] [address] Frantz Caraballo MD [facility] [place] [address] EXCISION, SKIN AND SUB-Q TISSUE, ARM-HIRAL (WRVU 10.61) Scheduled Procedures Name Priority Associated Diagnoses Date/Ti me EXCISION, SKIN AND SUB-Q TIS XAVI, ARM-HIRAL (WRVU 10.61) Elastosis of skin 01/06/2025 7:30 AM EDT EXC EXCESSIVE SKIN & SUBQ TISSUE, OTHER AREA (WRVU 10.5) Elastosis of skin 01/06/2025 7:30 AM EDT documented as of this encounter Visit Diagnoses Diagnosis Abdominal pain, unspecified abdominal location Elastosis of skin Other specified hypertrophic and atrophic condition of skin documented in this encounter Care Teams Engine Hostler Relationship Specialty Start Date End Date Avery Caballero MD [address] [place] [address] PCP - General 04/15/14 documented as of this encounter
--- OUTSIDE RECORDS SUMMARY | 2024-08-22 20:51 | XMS_ITS | Encounter Summary ---
[place] [address] Care Team Providers Care Cut Off Machine Helper Name Role Phone Avery Caballero MD Primary Care Provider [phone] Reason for Visit * Reason Comments Follow Up Surgery s/p abdominoplasty, thighplasty, dos 06/19/14 Encounter Details Date Type Department Care Team (Late st Contact Info) Description 12/09/2014 8:15 AM EDT Follow-[place] [address] Hiram Barrow MD S/P panniculectomy Discharge Disposition: Home Social [...] AM EDT Hospital Encounter [place] [address] Frantz Caraballo MD [facility] [place] [address] 01/06/2025 7:30 AM EDT - 01/06/2025 12:15 PM EDT Surgery [place] [address] Fratnz Caraballo MD [facility] [place] [address] EXCISION, SKIN AND SUB-Q TISSUE, ARM-HIRAL (WRVU [...] skin documented in this encounter Care Teams Cut Off Machine Helper Relationship Specialty Start Date End Date Avery Caballero MD [address] [place] [address] PCP - General 04/15/14 documented as of this encounter
--- OUTSIDE RECORDS SUMMARY | 2024-08-22 20:51 | XMS_ITS | Encounter Summary ---
[place] [address] Care Team Providers Care Director Pharmacy Services Name Role Phone Avery Caballero MD Primary Care Provider [phone] Reason for Visit * Reason Comments Follow Up Surgery panni/thigh plasty Encounter Details Date Type Department Care Team (Late st Contact Info) Description 07/21/2014 8:00 AM EST [place] [address] Varsha Lima [employer]WA[employer] MATE [facility] [place] [address] Other specified aftercare following surgery Discharge Disposition: [...] return to work on 08/03/14 without restrictions Melodie Wallace, marquis acting as scribe for Varsha Lima. All work documented was performed by Pedro. ???I performed the above scribed service and agree with the accuracy of the note?? Varsha Lima APRN documented in this encounter Plan of Treatment Upcoming Encounters Date Type Department Care Team (Latest Contact Info) Description 01/06/2025 7:30 AM EDT Hospital Encounter [place] [address] Frantz Caraballo MD [facility] [place] [address] 01/06/2025 7:30 AM EDT - 01/06/2025 12:15 PM EDT Surgery [place] [address] Frantz Caraballo MD [facility] [place] [address] EXCISION, SKIN AND SUB-Q TISSUE, ARM-HIRAL (WRVU [...] documented in this encounter Care Teams Director Pharmacy Services Relationship Specialty Start Date End Date Avery Caballero MD [address] [place] [address] PCP - General 04/15/14 documented as of this encounter
--- OUTSIDE RECORDS SUMMARY | 2024-08-22 20:51 | XMS_ITS | Encounter Summary ---
Author Organization [facility] [place] [address] Care Team Providers Care Corporate Attorney Name Role Phone Avery Caballero MD Primary Care Provider [phone] Encounter Details Date Type Department Care Team (Latest Contact Info) Description 10/06/2014 3:00 PM EST - 10/06/2014 6:50 PM EST Hospital [place] [phone] Bassem Allred MD [facility] [place] [address] Discharge Disposition: Home Social History Tobacco Use [...] you need to be checked. Sunday[facility]Sunday Clinic [phone] 8a-5p Same Day Endo [phone] 7a-8p Otherwise contact [phone] and ask to speak to the front desk specialist product development consultant Follow up care is a tian part [...] (SUPER B COMPLEX ORAL) Take by mouth. Mychqxafilgdq-Qv-Nare- Minerals Tab Take by mouth. Women's one [...] WONG : 1965 Age: 49 y.o. Address: [address] [place] [phone] (home) Mobile: No relevant phone numbers on [...] PLICATION performed by Hiram Barrow MD at [facility] MAIN OR ??? Excise excess skin tissue, thigh 06/19/2014 EXCISION EXCESSIVE SKIN AND TISSUE-THIGH performed by Hiram Barrow MD at [facility] MAIN OR ??? Suct jamin lipectomy, low extrem 06/19/2014 SUCTION ASSISTED LIPECTOMY, LOWER EXTREMITY-HIRAL performed by Hiram Barrow MD at [facility] MAIN OR ??? Appendectomy Medications: Prior to [...] COMPLEX ORAL) Take by mouth. Provider, Historical Cfcnxycekcrwf-Hk-Ycet-Minerals Tab Take by mouth. Women's one a [...] AM EDT Hospital Encounter [place] [address] Frantz Caraballo MD [facility] [place] [address] 01/06/2025 7:30 AM EDT - 01/06/2025 12:15 PM EDT Surgery [place] [address] Frantz Caraballo MD [facility] [place] [address] EXCISION, SKIN AND SUB-Q TISSUE, ARM-HIRAL (WRVU [...] (10/06/2014 4:58 PM EST) Final Diagnosis ? [facility] ? Provider: ?? BASSEM ALLRED ?Pt. Name: ?? HANNAH WONG ? Acc #: ?[id number] ?Pt. ? Col Date: ?? 10/06/2014 ?/Sex: [...] Diagnosis: ? Same 10/08/2014 2:58 PM EST [facility] GI Biopsy 10/06/2014 4:58 PM EST 10/06/2014 4:58 PM EST GI Biopsy 10/06/2014 4:58 PM EST 10/06/2014 4:58 PM EST Bassem Allred MD PATHOLOGY/CYTOLOGY O LOW Performing Organization Address [facility] Co de Phone Number SENA YOUNGSARAH [facility] [place] [address] * Specimen to Pathology (surgical or derm) (10/06/2014 4:58 PM EST) AP Specimen 10/06/2014 4:58 PM EST 10/06/2014 4:58 PM EST Narrative SENA YOUNGISISRINA - 10/06/2014 4:58 PM EST Specimen requisition ordered. ??Separate Pathology report to follow Bassem Allred MD PATHOLOGY/CYTOLOGY O OLW Performing Organization Address [facility] Co de Phone Number SENA SESAY * Specimen to Pathology (surgical or derm) (10/06/2014 4:58 PM EST) AP Specimen 10/06/2014 4:58 PM EST 10/06/2014 4:58 PM EST Narrative TYLANA VIDALISISRINA - 10/06/2014 4:58 PM EST Specimen requisition ordered. ??Separate Pathology report to follow Bassem Allred MD PATHOLOGY/CYTOLOGY O LOW Performing Organization Address [facility] Co de Phone Number SENA SESAY * UPPER GI ENDOSCOPY (10/06/2014 3:38 PM EST) UPPER GI ENDOSCOPY [facility] Endoscopy Patient Name: Hannah Wong ? Procedure Date: 10/06/2014 3:38 PM ? Date of : 1965 ? Age: 49 ? Order #: [id number] ? Procedure: ? Upper GI endoscopy Indications: ? Generalized abdominal pain, Anemia Providers: ? Bassem Allred MD, Guera Salmeron, ? RN, Murphy Eldridge, School Psychology Specialist Referring : ?Avery Caballero MD, Yesenia Zuniga ? Osorio, CHRISTINE Ruano: ? Midazolam 1.5 mg IV, Fentanyl 75 [...] * COLONOSCOPY (10/06/2014 3:37 PM EST) COLONOSCOPY [facility] Endoscopy Patient Name: Hannah Wong ? Procedure Date: 10/06/2014 3:37 PM ? N: [id number] ? Date of : 1965 ? Age: 49 ? Order #: [id number] ? Procedure: ? Colonoscopy Indications: ? Abdominal pain, thickened ascending ? colon on CT scan, anemia Providers: ? Bassem Allred MD, Guera Salmeron, ? RN, Murphy Eldridge, School Psychology Specialist Referring MD: ?Avery Caballero MD, Yesenia Zuniga [...] CONTINUOUS, Starting on Sun10/06/14 at 1545, Until 10/06/14 at 1806, Endoscopy [...] RN) documented in this encounter Care Teams Corporate Attorney Relationship Specialty Start Date End Date Avery Caballero MD [address] [place] [address] PCP - General 04/15/14 documented as of this encounter
--- OUTSIDE RECORDS SUMMARY | 2024-08-22 20:51 | XMS_ITS | Encounter Summary ---
Author Organization [facility] [place] [address] Care Team Providers Care Technical Service Specialist Name Role Phone Avery Caballero MD Primary Care Provider [phone] Encounter Details Date Type Department Care Team (Late st Contact Info) Description 09/30/2014 Orders [place] [phone] Yesenia Ac APRN Anemia, unspecified anemia type Social History Tobacco [...] AM EDT Hospital Encounter [place] [phone] Frantz Caraballo MD [facility] [place] [address] 01/06/2025 7:30 AM EDT - 01/06/2025 12:15 PM EDT Surgery Main [place] [address] Frantz Caraballo MD [facility] [place] [address] EXCISION, SKIN AND SUB-Q TISSUE, ARM-HIRAL (WRVU [...] skin documented in this encounter Care Teams Technical Service Specialist Relationship Specialty Start Date End Date Avery Caballero MD [address] [place] [address] PCP - General 04/15/14 documented as of this encounter
--- OUTSIDE RECORDS SUMMARY | 2024-08-22 20:51 | XMS_ITS | Encounter Summary ---
Author Organization [facility] [place] [address] Care Team Providers Care Aluminum Can Collector Name Role Phone Avery Caballero MD Primary Care Provider [phone] Encounter Details Date Type Department Care Team (Latest Contact Info) Description 08/06/2014 10:00 AM EST Ancillary Appointment [place] [phone] Benji Eugene [place] Lipodystrophy; Other specified aftercare following surgery; [...] AM EDT Hospital Encounter [place] [phone] Frantz Caraballo MD [facility] [place] [address] 01/06/2025 7:30 AM EDT - 01/06/2025 12:15 PM EDT Surgery [place] [address] Frantz Caraballo MD [facility] [place] [address] EXCISION, SKIN AND SUB-Q TISSUE, ARM-HIRAL (WRVU [...] Text Report Department: Vascular Surgery Lab Patient: [id number] (HANNAH WONG) CPT Code: 88505 ICD-9: 729.81 Referring Physician: HIRAM NASCIMENTO Indication: [...] skin documented in this encounter Care Teams Aluminum Can Collector Relationship Specialty Start Date End Date Avery Caballero MD [address] [place] [address] PCP - General 04/15/14 documented as of this encounter
--- OUTSIDE RECORDS SUMMARY | 2024-08-22 20:51 | XMS_ITS | Encounter Summary ---
[place] [address] Care Team Providers Care Velvet Cutter Name Role Phone Avery Caballero MD Primary Care Provider [phone] Reason for Visit * Reason Comments GI Problem abnormal colon CT sc an Abdominal Pain right side Gastroesophageal Reflux Encounter Details Date Type Department Care Team (Late st Contact Info) Description 09/30/2014 4:00 PM EST Office [place] [phone] Yesenia Ac APRN Abdominal pain, RUQ (right upper quadrant); Abnormal [...] 6. Follow up in November Yesenia Ac LOSS PREVENTION RESEARCH ENGINEER [phone] documented in this encounter Progress Notes * [...] mg qd after gastric sleeve performed at [facility]. She reports losing 80 lbs since gastric [...] B COMPLEX ORAL) Take by mouth. ??? Zffyierolbymj-Ap-Dhae-Minerals Tab Take by mouth. Women's one a [...] PLICATION performed by Hiram Barrow MD at [facility] MAIN OR ??? Excise excess skin tissue, thigh 06/19/2014 EXCISION EXCESSIVE SKIN AND TISSUE-THIGH performed by Hiram Barrow MD at [facility] MAIN OR ??? Suct jamin lipectomy, low extrem 06/19/2014 SUCTION ASSISTED LIPECTOMY, LOWER EXTREMITY-HIRAL performed by Hiram Barrow MD at [facility] MAIN OR ??? Appendectomy History Social History [...] Ac APRN Section of Gastroenterology [place] [address] documented in this encounter Plan of Treatment Upcoming Encounters Date Type Department Care Team (Latest Contact Info) Description 01/06/2025 7:30 AM EDT Hospital Encounter [place] [address] Frantz Caraballo MD [facility] [place] [address] 01/06/2025 7:30 AM EDT - 01/06/2025 12:15 PM EDT Surgery [place] [address] Frantz Caraballo MD [facility] [place] [address] EXCISION, SKIN AND SUB-Q TISSUE, ARM-HIRAL (WRVU 10.61) Scheduled Orders Name Type Priority Associated Diagnoses Orde r Schedule COLONOSCOPY Procedures Routine Abdominal pain, RUQ (right upper quadrant) Abnormal CT scan Constipation, Unspecified Constipation Type Ordered: 09/30/2014 Scheduled Procedures Name Priority Associated Diagnoses Date/Ti [...] MD HEMATOLOGY ORDERABLE S Performing Organization Address [facility]/State/ZIP Co de Phone Number SENA SESAY * (ABNORMAL) Hemogram (09/30/2014 5:07 PM EST) [...] Platelet Volume 10.5 9.0 - 12.0 fL CERNER MILLENNIUM Blood specimen (specimen) 09/30/2014 5:07 PM EST 09/30/2014 5:12 PM EST Narrative Resulting Agency Comment Spec In Lab Roly Goldstein MD HEMATOLOGY ORDERABLE S SENA SESAY * High Sensitivity CRP (09/30/2014 5:07 PM EST) C-Reactive Protein High Sensitivity 3.7 mg/L CERNER MILLENNIUM Comment: Interpretations: 1) For accurate cardiac risk [...] Goldstein MD CHEMISTRY ORDERABLES Performing Organization Address [facility] Phone Number [facility] * (ABNORMAL) Sedimentation rate (09/30/2014 5:07 PM EST) Sedimentation Rate Automated 23(H) 0 - 20 mm/hr [facility] Blood specimen (specimen) 09/30/2014 5:07 PM EST 09/30/2014 5:12 PM EST Narrative Resulting Agency Comment Spec In Lab Roly Goldstein MD HEMATOLOGY ORDERABLE S Performing Organization Address [facility] Phone Number [facility] * TSH (09/30/2014 5:07 PM EST) Thyroid Stimulating Hormone 1.16 0.27 - 4.20 mcIU/mL [facility] Blood specimen (specimen) 09/30/2014 5:07 PM EST 09/30/2014 5:12 PM EST Narrative Resulting Agency Comment Spec In Lab Roly Goldstein MD CHEMISTRY ORDERABLES Performing Organization Address [facility] Number [facility] * (ABNORMAL) Comprehensive metabolic panel (non-fasting) (09/30/2014 5:07 PM EST) Glucose 93 60 - 199 mg/dL CERNER MILLENNIUM Comment:Diabetes: >=200 mg/d L plus symptoms Blood Urea Nitrogen 9 8 - 18 mg/dL CERNER MILLENNIUM Creatinine 0.53(L) 0.70 - 1.20 mg/dL CERNER MILLENNIUM Comment: Please note that the pediatric reference intervals supplied above were not validated at [facility]. Results from pediatric patients should be interpreted [...] the following links into your internet browser. [email or web address] Blood specimen (specimen) 09/30/2014 5:07 PM EST 09/30/2014 5:12 PM EST Narrative Resulting Agency Comment Spec In Lab Roly Goldstein MD CHEMISTRY ORDERABLES [facility] documented in this encounter Visit Diagnoses Diagnosis Abdominal pain, RUQ (right upper quadrant) Abdominal pain, right upper quadrant Abnormal CT scan Other nonspecific (abnormal) findings on radiological and other examinations of body structure Constipation, unspecified constipation type Elastosis of skin Other specified hypertrophic and atrophic condition of skin documented in this encounter Care Teams Velvet Cutter Relationship Specialty Start Date End Date Avery Caballero MD [address] [place] [address] PCP - General 04/15/14 documented as of this encounter
--- OUTSIDE RECORDS SUMMARY | 2024-08-22 20:51 | XMS_ITS | Encounter Summary ---
[place] [address] Care Team Providers Care City Treasurer Name Role Phone Avery Caballero MD Primary Care Provider [phone] Encounter Details Date Type Department Care Team (Latest Contact Info) Description 09/30/2014 10:53 AM EST - 09/30/2014 11:59 PM EST Hospital [place] [address] Abdominal pannus Social History Tobacco Use Types [...] (SUPER B COMPLEX ORAL) Take by mouth. Bpispmsfcvbel-Hx-Hwkz- Minerals Tab Take by mouth. Women's one [...] EDT Hospital Encounter [place] [address] Frantz Caraballo MD [facility] [place] [address] 01/06/2025 7:30 AM EDT - 01/06/2025 12:15 PM EDT Surgery [place] [address] Frantz Caraballo MD [facility] [place] [address] EXCISION, SKIN AND SUB-Q TISSUE, ARM-HIRAL (WRVU [...] Visit Diagnoses Diagnosis Abdominal pannus Localized adiposity Elastosis of skin Other specified hypertrophic and atrophic condition of skin documented in this encounter Care Teams City Treasurer Relationship Specialty Start Date End Date Avery Caballero MD [address] [place] [address] PCP - General 04/15/14 documented as of this encounter
--- OUTSIDE RECORDS SUMMARY | 2024-08-22 20:51 | XMS_ITS | Encounter Summary ---
Author Organization [facility] [place] [address] Care Team Providers Care Internal Audit Consultant Name Role Phone Avery Caballero MD Primary Care Provider [phone] Encounter Details Date Type Department Care Team (Late st Contact Info) Description 09/30/2014 Telephone [place] [address] Amanda Coello Social History Tobacco [...] Telephone Encounter - Amanda Coello - 09/30/2014 10:[address] questions documented in this encounter Plan of Treatment Upcoming Encounters Date Type Department Care Team (Latest Contact Info) Description 01/06/2025 7:30 AM EDT Hospital Encounter [place] [address] Frantz Caraballo MD [facility] [place] [address] 01/06/2025 7:30 AM EDT - 01/06/2025 12:15 PM EDT Surgery Main Operating Room [place] [address] Frantz Caraballo MD [facility] [place] [address] EXCISION, SKIN AND SUB-Q TISSUE, ARM-HIRAL (WRVU [...] on filedocumented in this encounter Care Teams Internal Audit Consultant Relationship Specialty Start Date End Date Avery Caballero MD [address] [place] [address] PCP - General 04/15/14 documented as of this encounter
--- OUTSIDE RECORDS SUMMARY | 2024-08-22 20:51 | XMS_ITS | Encounter Summary ---
Author Organization [facility] [place] [address] Care Team Providers Care Foreman/Pile Driving And Erection Name Role Phone None Primary Care Provider Unavailabl e Encounter Details Date Type Department Care Team (Late st Contact Info) Description 07/27/2012 Telephone [place] [address] Francesco Trevizo MD [facility] [place] [address] Social History Tobacco Use Types Packs/Day Years Used Date Smoking Tobacco: Never Assessed Sex and Gender Information Value Date Recorded Sex Assigned at Not on file Gender Identity Not on file Sexual Orientation Not on file documented as of this encounter Miscellaneous Notes * Telephone Encounter - Francesco Trevizo - 07/27/2012 10:09 AM EST Call from [facility] Episode of vertigo abdominal pain nausea vomiting AMS CT CSF NEG with 2 cells Labs WBC 97653 Low bp episode at night. Still has [...] AM EDT Hospital Encounter [place] [address] Frantz Caraballo MD [facility] [place] [address] 01/06/2025 7:30 AM EDT - 01/06/2025 12:15 PM EDT Surgery [place] [address] Frantz Caraballo MD [facility] [place] [address] EXCISION, SKIN AND SUB-Q TISSUE, ARM-HIRAL (WRVU [...] on filedocumented in this encounter Care Teams Foreman/Pile Driving And Erection Relationship Specialty Start Date End Date None None PCP - General 07/26/10 04/14/14 documented as of this encounter
--- OUTSIDE RECORDS SUMMARY | 2024-08-22 20:51 | XMS_ITS | Encounter Summary ---
Author Organization [facility] [place] [address] Care Team Providers Care Strategic Solutions Consultant Name Role Phone Avery Caballero MD Primary Care Provider [phone] Encounter Details Date Type Department Care Team (Late st Contact Info) Description 10/23/2014 Orders [place] [address] Hiram Barrow MD S/P abdominoplasty; Right upper quadrant pain Social [...] AM EDT Hospital Encounter [place] [phone] Frantz Caraballo MD [facility] [place] [address] 01/06/2025 7:30 AM EDT - 01/06/2025 12:15 PM EDT Surgery Main [place] [address] Frantz Caraballo MD [facility] [place] [address] EXCISION, SKIN AND SUB-Q TISSUE, ARM-HIRAL (WRVU [...] second CECT scan was performed on 10/19/2014 ([facility]) which showed post operative changes in [...] the attending Narrative 10/27/2014 9:37 AM EST [facility] [id number] Procedure: ?? US evaluation of the anterior abdominal wall History: 49 yr old F patient, s/p abdominoplasty on 06/19/14. During the September [address] Barrow, she continued to experience pain in the right lateral sub costal area. A CT scan of the abdomen was performed at [facility] on 09/30/14, demonstrating: Diffuse postsurgical changes in [...] Procedure Note Kota Hall MD - 10/27/2014 [facility] [id number] Procedure: US evaluation of the anterior abdominal wall History: 49 yr old F patient, s/p abdominoplasty on 06/19/14. During theSeptember [address] Barrow, she continued to experience pain in theright lateral sub costal area. [facility] CT [facility], demonstrating: Diffuse postsurgical changes in the [...] second CECT scan was performed on 10/19/2014 ([facility])which showed post operative changes in the [...] documented in this encounter Care Teams Strategic Solutions Consultant Relationship Specialty Start Date End Date Avery Caballero MD [address] [place] [address] PCP - General 04/15/14 documented as of this encounter
--- OUTSIDE RECORDS SUMMARY | 2024-08-22 20:52 | XMS_ITS | Encounter Summary ---
Author Organization [facility] Address [address] [place] [address] Care Team Providers Care Sub Prior Name Role Phone Avery Caballero MD Primary Care Provider [phone] Reason for Visit * Reason Onset Date Comments Appointment Related 07/07/2016 Encounter Details Date Type Department Care Team (Late st Contact Info) Description 07/07/2016 Telephone [facility] Bariatric Surgery [address] [phone] Leon Georges PA-C [address] [facility] 5 [place] [address] Appointment Related Social History Tobacco Use Types Packs/Day Years Used Date Smoking Tobacco: Never Alcohol Use Standard Drinks/Week Comments No 0 (1 standard drink = 0.6 oz pur e alcohol) Comments Unknown Sex and Gender Information Value Date Recorded Sex Assigned at Not on file Legal Sex Female 18:13 EST Gender Identity Not on file Sexual Orientation [...] on filedocumented in this encounter Care Teams Sub Prior Relationship Specialty Start Date End Date Avery Caballero MD [address] [place] [address] PCP - General 12/20/10 documented as of this encounter
--- OUTSIDE RECORDS SUMMARY | 2024-08-22 20:52 | XMS_ITS | Encounter Summary ---
Author Organization [facility] Address [address] [place] [address] Care Team Providers Care Paster Hat Lining Name Role Phone Avery Caballero MD Primary Care Provider [phone] Encounter Details Date Type Department Care Team (Late st Contact Info) Description 09/25/2012 Documentation Visit [facility] Bariatric Surgery [place] [address] [place] [address] Leon Georges PA-C 111 [facility] [address] [place] [address] Social History Tobacco Use Types Packs/Day Years [...] on filedocumented in this encounter Care Teams Paster Hat Lining Relationship Specialty Start Date End Date Avery Caballero MD [address] [place] [address] PCP - General 12/20/10 documented as of this encounter
--- OUTSIDE RECORDS SUMMARY | 2024-08-22 20:52 | XMS_ITS | Encounter Summary ---
Author Organization [facility] Address [address] [place] [address] Care Team Providers Care Lip Reading Teacher Name Role Phone Avery Caballero MD Primary Care Provider [phone] Reason for Visit * Reason Comments Obesity Pre op Encounter Details Date Type Department Care Team (Late st Contact Info) Description 05/28/2012 13:30 EDT Office Visit [facility] Bariatric Surgery [address] [phone] Leon Georges PA-C [address] [place] [address] [address] [place] [address] Morbid obesity (HCC-CMS) (Primary Dx) Discharge Disposition: [...] full activity with foot Food logs: on [employer] Meal pattern: 3 Average caloric intake:<1000 janay [...] Diagnoses Diagnosis Morbid obesity ([facility])- Primary Morbid obesity documented in this encounter Discontinued Medications Medication Sig Discontinue Reason Start Date End Da te ascorbic acid (VITAMIN C) 500 mg tablet Take 500 mg by mouth daily. Therapy completed 05/28/2012 documented as of this encounter Care Teams Lip Reading Teacher Relationship Specialty Start Date End Date Avery Caballero MD [address] [place] [address] PCP - General 12/20/10 documented as of this encounter
--- OUTSIDE RECORDS SUMMARY | 2024-08-22 20:52 | XMS_ITS | Encounter Summary ---
Author Organization [facility] Address [address] [place] [address] Care Team Providers Care Pension Adviser Name Role Phone Avery Caballero MD Primary Care Provider [phone] Reason for Visit * Reason Onset Date Comments Appointment Related 12/03/2014 Encounter Details Date Type Department Care Team (Late st Contact Info) Description 12/03/2014 Telephone [facility] Bariatric Surgery [address] [address] Leon Georges PA-C 111 [facility] 5 [place] [address] Appointment Related Social History Tobacco [...] on filedocumented in this encounter Care Teams Pension Adviser Relationship Specialty Start Date End Date Avery Caballero MD [address] [place] [address] PCP - General 12/20/10 documented as of this encounter
--- OUTSIDE RECORDS SUMMARY | 2024-08-22 20:52 | XMS_ITS | Encounter Summary ---
Author Organization [facility] Address [address] [place] [address] Care Team Providers Care Skiver Uppers Or Linings Name Role Phone Avery Caballero MD Primary Care Provider [phone] Reason for Visit * Reason Comments Obesity PO Sleeve 3 Month F/ U Encounter Details Date Type Department Care Team (Late st Contact Info) Description 12/12/2012 15:45 EDT Office Visit [facility] Bariatric Surgery [address] [phone] Bebeto Culver MD [address] [place] [phone] S/P partial gastrectomy (Primary Dx) Discharge [...] Progress Notes * Charlotte Lima RD - 12/12/2012 1600 EDT Nutrition Post [...] Indicated Labs discussed Seen and discussed with Mounted Police at this visit. Bebeto Culver MD 12/12/2012 [...] encounter Miscellaneous Notes * Scanned Note-Null - QUALITY CONTROL AUDITOR, SCAN 2 - 12/30/2012 1005 EDT documented in this encounter Plan of Treatment Not on file documented as of this encounter Visit Diagnoses Diagnosis S/P partial gastrectomy- Primary Other postprocedural status documented in this encounter Care Teams Skiver Uppers Or Linings Relationship Specialty Start Date End Date Avery Caballero MD [address] [place] [address] PCP - General 12/20/10 documented as of this encounter
--- OUTSIDE RECORDS SUMMARY | 2024-08-22 20:52 | XMS_ITS | Encounter Summary ---
Author Organization [facility] Address [address] [place] [address] Care Team Providers Care Tractor Crane Operator Name Role Phone Avery Caballero MD Primary Care Provider [phone] Reason for Visit * Reason Onset Date Comments Results 09/05/2013 Encounter Details Date Type Department Care Team (Late st Contact Info) Description 09/05/2013 Orders Only [facility] Bariatric Surgery - [place] [address] [place] [address] Desi Rios RN Morbid obesity ([facility]); S/P partial gastrectomy; Post-resection malabsorption Social History [...] (VITAMIN B1), WB Routine 09/02/2013 Morbid obesity ([facility]) S/P partial gastrectomy Post-resection malabsorption VITAMIN D (25,OH) Routine 09/02/2013 Morbid obesity ([facility]) S/P partial gastrectomy Post-resection malabsorption PTH INTACT Routine 09/02/2013 Morbid obesity ([facility]) S/P partial gastrectomy Post-resection malabsorption COMPLETE BLOOD COUNT Routine 09/02/2013 Morbid obesity ([facility]) S/P partial gastrectomy Post-resection malabsorption IRON Routine 09/02/2013 Morbid obesity (HCC-CMS) S/P partial gastrectomy Post-resection malabsorption FERRITIN Routine 09/02/2013 Morbid obesity (HCC-CMS) S/P partial gastrectomy Post-resection malabsorption VITAMIN B12 Routine 09/02/2013 Morbid obesity (HCC-CMS) S/P partial gastrectomy Post-resection malabsorption CREATININE Routine 09/02/2013 Morbid obesity (HCC-CMS) S/P partial gastrectomy Post-resection malabsorption CALCIUM Routine 09/02/2013 Morbid obesity (HCC-CMS) S/P partial gastrectomy Post-resection malabsorption documented in this encounter Results * HEMAGRAM (09/02/2013) HCT, External 42.6 [facility] MCH, External 29.5 [facility] MCV, External 87.3 [facility] MCHC, External 33.8 [facility] Hemoglobin, External 14.4 [facility] WBC, External 4.85 [facility] RBC, External 4.88 [facility] PLT, External 162 [facility] RDW-CV, External 12.8 [facility] Blood specimen (specimen) 09/02/2013 us Leon Georges PA-C HEMATOLOGY & PF4 ORD ERABLES Final Result [facility] * CREATININE (09/02/2013) Creatinine, External 0.7 [facility] GFR, Calculated, External [facility] Blood specimen (specimen) 09/02/2013 us Leon Zeng Saraer-Gaspersy PA-C CHEMISTRY & BLOOD GA S ORDERABLES Final Result [facility] * VITAMIN B12 (09/02/2013) Vitamin B-12, External 516 [facility] Blood specimen (specimen) 09/02/2013 us Leon Azucena Saraer-Gaspersy PA-C CHEMISTRY & BLOOD GA S ORDERABLES Final Result [facility] * CALCIUM (09/02/2013) Calcium, External 9.2 [facility] Calculated Calcium, External [facility] Blood specimen (specimen) 09/02/2013 us Leon Ruizer-Gaspersy PA-C CHEMISTRY & BLOOD GA S ORDERABLES Final Result [facility] * FERRITIN (09/02/2013) Ferritin, External 27 [facility] Blood specimen (specimen) 09/02/2013 us Leon Lewis-Gaspersy PA-C CHEMISTRY & BLOOD GA S ORDERABLES Final Result [facility] * THIAMIN (VITAMIN B1), WB (09/02/2013) Thiamine, External 106 [facility] Comment, External [facility] Blood specimen (specimen) 09/02/2013 us Leon Ruizer-Gaspersy PA-C CHEMISTRY & BLOOD GA S ORDERABLES Final Result [facility] * VITAMIN D (25,OH) (09/02/2013) 25OH Vitamin D Tot, External 26.7 [facility] Blood specimen (specimen) 09/02/2013 us Leon Azucena Ruizer-Gaspersy PA-C CHEMISTRY & BLOOD GA S ORDERABLES Final Result [facility] * IRON (09/02/2013) Iron, External 85 [facility] Blood specimen (specimen) 09/02/2013 us Leon A Indratter-Cressy PA-C CHEMISTRY & BLOOD GA S ORDERABLES Final Result Performing Organization Address [facility]/ZIP Co de Phone Number [facility] * PTH INTACT (09/02/2013) PTH, External 45 [facility] Blood specimen (specimen) 09/02/2013 us Leon Ruizer-Gaspersy PA-C CHEMISTRY & BLOOD GA S ORDERABLES Final Result [facility] documented in this encounter Visit Diagnoses Diagnosis Morbid obesity ([facility]) Morbid obesity S/P partial gastrectomy Other postprocedural status Post-resection malabsorption Other and unspecified postsurgical nonabsorption documented in this encounter Care Teams Tractor Crane Operator Relationship Specialty Start Date End Date Avery Caballero MD [address] [place] [address] PCP - General 12/20/10 documented as of this encounter
--- OUTSIDE RECORDS SUMMARY | 2024-08-22 20:52 | XMS_ITS | Encounter Summary ---
Author Organization [facility] Address [address] [place] [address] Care Team Providers Care Instrument Maintenance Supervisor Name Role Phone Avery Caballero MD Primary Care Provider [phone] Reason for Visit * Reason Comments Obesity Pre op Encounter Details Date Type Department Care Team (Late st Contact Info) Description 05/03/2012 14:30 EDT Office Visit [facility] Bariatric Surgery [address] [phone] Leon Georges, PANikiaC 111 [facility] [address] [place] [address] Morbid obesity (HCC-CMS) (Primary Dx) [...] Progress Notes * Charlotte Lima RD - 05/03/2012 1512 EDT Medical Nutrition Evaluation-PRE OP NOTE Bariatric Clinic Nutrition Pre-op Visit Visit Number: 7 Desired surgery: Gastric Sleeve Subjective: Starting 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 To return to work next week Food logs: on website Meal pattern: 2-3 Average caloric intake:6966-9567 janay Meal composition: well balanced! Snacking: Exercise: [...] Visit Diagnoses Diagnosis Morbid obesity ([facility])- Primary Morbid obesity documented in this encounter Historical Medications * This list may reflect changes made after this encounter. SULFAMETHOXAZOLE /TRIMETHOPRIM (BACTRIM ORAL) Take by mouth. 7 day pack - almost finished (05/03/12). Unsure of dosage 08/30/2012 added in this encounter Care Teams Instrument Maintenance Supervisor Relationship Specialty Start Date End Date Avery Caballero MD [address] [place] [address] PCP - General 12/20/10 documented as of this encounter
--- OUTSIDE RECORDS SUMMARY | 2024-08-22 20:52 | XMS_ITS | Encounter Summary ---
Author Organization [facility] Address [address] [place] [address] Care Team Providers Care Customer Relations Advisor Name Role Phone Avery Caballero MD Primary Care Provider [phone] Reason for Visit * Reason Comments Obesity Post Op Sleeve 18 Mo nths (09/20/2012) Encounter Details Date Type Department Care Team (Late st Contact Info) Description 05/07/2014 15:45 EDT Office Visit [facility] Bariatric Surgery [address] [place], [place] [address] Leon Georges, PA-C 111 [facility], Level [address] [place] [address] Morbid obesity (HCC-CMS) (Primary Dx); [...] PA - 06/09/2014 1111 EDT 06/09/2014 Hannah Ling is here in follow-up to [...] before next visit Seen and discussed with Vegetable Loader at this visit. TIFFANY Powell 06/09/2014 11:11 * Charlotte Lima, RD - 05/07/2014 6671 EDT Nutrition Post Op Visit: Gastric Sleeve [...] this encounter Visit Diagnoses Diagnosis Morbid obesity ([facility])- Primary Morbid obesity S/P partial gastrectomy Other postprocedural status Post-resection malabsorption Other and unspecified postsurgical nonabsorption documented in this encounter Care Teams Customer Relations Advisor Relationship Specialty Start Date End Date vAery Caballero MD [address] [place] [address] PCP - General 12/20/10 documented as of this encounter
--- OUTSIDE RECORDS SUMMARY | 2024-08-22 20:52 | XMS_ITS | Encounter Summary ---
Author Organization [facility] Address [address] [place] [address] Care Team Providers Care Enterprise Architect Name Role Phone Avery Caballero MD Primary Care Provider [phone] Reason for Visit * Reason Comments Obesity H Encounter Details Date Type Department Care Team (Late st Contact Info) Description 08/30/2012 12:30 EST Office Visit [facility] Bariatric Surgery [address] [phone] Leon Georges PA-C [address] [place] [address] [address] [place] [address] Morbid obesity (HCC-CMS) (Primary Dx); [...] 08/30/2012 13:47 Modules accepted: Orders * Charlotte Lima, GIN - 08/30/2012 1258 EST Medical Nutrition Evaluation-PRE OP NOTE Bariatric Clinic Nutrition Pre-op Visit Visit Number: 11 Desired surgery: Gastric Sleeve Subjective: Lots of company over xmas. Lots of restaurant meals-upset with herself for weight gain Food logs: on [employer] Meal pattern: 3 Average caloric intake:1294-0308 janay even over xmas! Meal composition: well [...] fluticasone (FLONASE) 50 mcg/actuation nasal spray 1 Zearing by Nasal route 2 times daily. ??? [...] OK for surgery - EKG done at [facility] during vertigo workup with no signs of [...] this encounter Visit Diagnoses Diagnosis Morbid obesity ([facility])- Primary Morbid obesity Preop examination Preoperative examination, [...] documented as of this encounter Care Teams Enterprise Architect Relationship Specialty Start Date End Date Avery Caballero MD [address] [place] [address] PCP - General 12/20/10 documented as of this encounter
--- OUTSIDE RECORDS SUMMARY | 2024-08-22 20:52 | XMS_ITS | Encounter Summary ---
Author Organization [facility] Address [address] [place] [address] Care Team Providers Care Frozen Meat Cutter Name Role Phone Avery Caballero MD Primary Care Provider [phone] Reason for Visit * Reason Onset Date Comments Results 04/03/2014 Encounter Details Date Type Department Care Team (Late st Contact Info) Description 04/03/2014 Orders Only [facility] Bariatric Surgery - [place] [address] [place] [address] Desi Rios RN Morbid obesity ([facility]); S/P partial gastrectomy; Post-resection malabsorption Social History [...] WB Routine 03/24/2014 Morbid obesity ([facility]) S/P partial gastrectomy Post-resection malabsorption VITAMIN D (25,OH) Routine 03/24/2014 Morbid obesity ([facility]) S/P partial gastrectomy Post-resection malabsorption PTH INTACT Routine 03/24/2014 Morbid obesity ([facility]) S/P partial gastrectomy Post-resection malabsorption COMPLETE BLOOD COUNT Routine 03/24/2014 Morbid obesity ([facility]) S/P partial gastrectomy Post-resection malabsorption IRON Routine [...] [facility] MCHC, External 33.9 [facility] Hemoglobin, External 13.6 [facility] WBC, External 4.37 [facility] RBC, External 4.58 [facility] PLT, External 141 [facility] RDW-CV, External 12.4 [facility] Blood specimen (specimen) 03/24/2014 us Leon Georges PA-C HEMATOLOGY & PF4 ORD ERABLES Final Result [facility] * CREATININE (03/24/2014) Creatinine, External 0.7 [facility] GFR, Calculated, External [facility] Blood specimen (specimen) 03/24/2014 us Leon Zeng Saraer-Gaspersy PA-C CHEMISTRY & BLOOD GA S ORDERABLES Final Result [facility] * VITAMIN B12 (03/24/2014) Vitamin B-12, External 545 [facility] Blood specimen (specimen) 03/24/2014 us Leon Azucena Saraer-Gaspersy PA-C CHEMISTRY & BLOOD GA S ORDERABLES Final Result [facility] * CALCIUM (03/24/2014) Calcium, External 8.6 [facility] Calculated Calcium, External [facility] Blood specimen (specimen) 03/24/2014 us Leon Ruizer-Gaspersy PA-C CHEMISTRY & BLOOD GA S ORDERABLES Final Result [facility] * FERRITIN (03/24/2014) Ferritin, External 31 [facility] Blood specimen (specimen) 03/24/2014 us Leon Lewis-Gaspersy PA-C CHEMISTRY & BLOOD GA S ORDERABLES Final Result [facility] * THIAMIN (VITAMIN B1), WB (03/24/2014) Thiamine, External 126 [facility] Comment, External [facility] Blood specimen (specimen) 03/24/2014 us Leon Ruizer-Gaspersy PA-C CHEMISTRY & BLOOD GA S ORDERABLES Final Result [facility] * VITAMIN D (25,OH) (03/24/2014) 25OH Vitamin D Tot, External 35.1 [facility] Blood specimen (specimen) 03/24/2014 us Leon Azucena Ruizer-Gaspersy PA-C CHEMISTRY & BLOOD GA S ORDERABLES Final Result [facility] * IRON (03/24/2014) Iron, External 110 [facility] Blood specimen (specimen) 03/24/2014 us Leon A Indratter-Cressy PA-C CHEMISTRY & BLOOD GA S ORDERABLES Final Result Performing Organization Address [facility]/ZIP Co de Phone Number [facility] * PTH INTACT (03/24/2014) PTH, External 48 [facility] Blood specimen (specimen) 03/24/2014 us Leon Ruizer-Gaspersy PA-C CHEMISTRY & BLOOD GA S ORDERABLES Final Result [facility] documented in this encounter Visit Diagnoses Diagnosis Morbid obesity ([facility]) Morbid obesity S/P partial gastrectomy Other postprocedural status Post-resection malabsorption Other and unspecified postsurgical nonabsorption documented in this encounter Care Teams Frozen Meat Cutter Relationship Specialty Start Date End Date Avery Caballero MD [address] [place] [address] PCP - General 12/20/10 documented as of this encounter
--- OUTSIDE RECORDS SUMMARY | 2024-08-22 20:52 | XMS_ITS | Encounter Summary ---
Author Organization [facility] Address [address] [place] [address] Care Team Providers Care Director Traffic And Planning Name Role Phone Avery Caballero MD Primary Care Provider [phone] Reason for Visit * Reason Onset Date Comments Pre-visit Orders 01/02/2013 Needs labs Encounter Details Date Type Department Care Team (Late st Contact Info) Description 01/02/2013 Orders Only [facility] Bariatric Surgery - [address] [phone] Desi Rios RN Other and unspecified postsurgical [...] status documented in this encounter Care Teams Director Traffic And Planning Relationship Specialty Start Date End Date Avery Caballero MD [address] [place] [address] PCP - General 12/20/10 documented as of this encounter
--- OUTSIDE RECORDS SUMMARY | 2024-08-22 20:52 | XMS_ITS | Encounter Summary ---
Author Organization [facility] Address [address] [place] [address] Care Team Providers Care Wrapper Selector Name Role Phone Avery Caballero MD Primary Care Provider [phone] Reason for Visit * Reason Comments Obesity Pre-op monthly visit Encounter Details Date Type Department Care Team (Late st Contact Info) Description 06/27/2012 11:15 EDT Office Visit [facility] Bariatric Surgery [facility] [address] [place], [place] [phone] Bebeto Culver MD [address] [place] [address] Morbid obesity (HCC-CMS) (Primary Dx) [...] now and really enjoying that. 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
--- OUTSIDE RECORDS SUMMARY | 2024-08-22 20:52 | XMS_ITS | Encounter Summary ---
Author Organization [facility] Address [address] [place] [address] Care Team Providers Care Airline Stewardess Name Role Phone Avery Caballero MD Primary Care Provider [phone] Reason for Visit * Reason Onset Date Comments Appointment Related 10/12/2014 Cancel appointment make it for a month out and leave message on answering machine. Encounter Details Date Type Department Care Team (Late st Contact Info) Description 10/12/2014 Telephone [facility] Bariatric Surgery - [address] [place], [place] [address] Leon Georges, LOYDC 111 [facility], [address] [place] [address] Appointment Related (Cancel 09/20/14 appointment [...] Telephone Encounter - Simi Guerrero - 10/13/2014 1421 EST Left message on answer machine with new appointment of November 19 @ 3:45pm documented in this encounter Plan of Treatment Not on file documented as of this encounter Visit Diagnoses Not on filedocumented in this encounter Care Teams Airline Stewardess Relationship Specialty Start Date End Date Avery Caballero MD [address] [place] [address] PCP - General 12/20/10 documented as of this encounter
--- OUTSIDE RECORDS SUMMARY | 2024-08-22 20:52 | XMS_ITS | Encounter Summary ---
Author Organization [facility] Address [address] [place] [address] Care Team Providers Care Rn Diabetes Name Role Phone Avery Caballero MD Primary Care Provider [phone] Reason for Visit * Reason Comments Obesity Class Encounter Details Date Type Department Care Team (Late st Contact Info) Description 01/31/2012 8:30 EDT [facility] Bariatric Surgery - [place] [address] [place], [place] [address] Charlotte Lima RD Morbid obesity ([facility]); Asthma; GERD (gastroesophageal reflux disease) Social History [...] encounter Visit Diagnoses Diagnosis Morbid obesity ([facility]) Morbid obesity Asthma Unspecified asthma GERD (gastroesophageal reflux disease) Esophageal reflux documented in this encounter Care Teams Rn Diabetes Relationship Specialty Start Date End Date Avery Caballero MD [address] [place] [address] PCP - General 12/20/10 documented as of this encounter
--- OUTSIDE RECORDS SUMMARY | 2024-08-22 20:52 | XMS_ITS | Encounter Summary ---
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 naproxen (NAPROSYN) 500 mg tablet Take 500 mg by mouth 2 times daily. 09/26/2012 added in this encounter Care Teams Prop Worker Relationship Specialty Start Date End Date Avery Caballero MD [address] [place] [address] PCP - General 12/20/10 documented as of this encounter
--- OUTSIDE RECORDS SUMMARY | 2024-08-22 20:52 | XMS_ITS | Encounter Summary ---
Author Organization [facility] Address [address] [place] [address] Care Team Providers Care Video Recorder Mechanic Name Role Phone Avery Caballreo MD Primary Care Provider [phone] Reason for Visit * Reason Onset Date Comments Pre-visit Orders 10/31/2012 Needs labs Encounter Details Date Type Department Care Team (Late st Contact Info) Description 10/31/2012 Orders Only [facility] Bariatric Surgery - [address] [phone] Desi Rios RN Other and unspecified postsurgical [...] status documented in this encounter Care Teams Video Recorder Mechanic Relationship Specialty Start Date End Date Avery Caballero MD [address] [place] [address] PCP - General 12/20/10 documented as of this encounter
--- OUTSIDE RECORDS SUMMARY | 2024-08-22 20:52 | XMS_ITS | Encounter Summary ---
Author Organization [facility] Address [address] [place] [address] Care Team Providers Care Data Entry Email Processor Name Role Phone Avery Caballero MD Primary Care Provider [phone] Reason for Visit * Reason Onset Date Comments Results 05/30/2013 Encounter Details Date Type Department Care Team (Late st Contact Info) Description 05/30/2013 Orders Only [facility] Bariatric Surgery - [place] [address] [place] [address] Desi Rios RN Morbid obesity ([facility]); S/P partial gastrectomy; Post-resection malabsorption [...] (VITAMIN B1), WB Routine 05/22/2013 Morbid obesity ([facility]) S/P partial gastrectomy Post-resection malabsorption VITAMIN D (25,OH) Routine 05/22/2013 Morbid obesity ([facility]) S/P partial gastrectomy Post-resection malabsorption PTH INTACT Routine 05/22/2013 Morbid obesity ([facility]) S/P partial gastrectomy Post-resection malabsorption COMPLETE BLOOD COUNT Routine 05/22/2013 Morbid obesity ([facility]) S/P partial gastrectomy Post-resection malabsorption IRON Routine 05/22/2013 Morbid obesity (HCC-CMS) S/P partial gastrectomy Post-resection malabsorption FERRITIN Routine 05/22/2013 Morbid obesity (HCC-CMS) S/P partial gastrectomy Post-resection malabsorption VITAMIN B12 Routine 05/22/2013 Morbid obesity (HCC-CMS) S/P partial gastrectomy Post-resection malabsorption CREATININE Routine 05/22/2013 Morbid obesity (HCC-CMS) S/P partial gastrectomy Post-resection malabsorption CALCIUM Routine 05/22/2013 Morbid obesity (HCC-CMS) S/P partial gastrectomy Post-resection malabsorption documented in this encounter Results * CREATININE (05/22/2013) Creatinine, External 0.7 [facility] GFR, Calculated, External >60 [facility] Blood specimen (specimen) 05/22/2013 us Leon Georges PA-C CHEMISTRY & BLOOD GA S ORDERABLES Final Result [facility] * HEMAGRAM (05/22/2013) HCT, External 40.4 [facility] MCH, External 29.5 [facility] MCV, External 88.8 [facility] MCHC, External 33.2 [facility] Hemoglobin, External 13.4 [facility] WBC, External 5.37 [facility] RBC, External 4.55 [facility] PLT, External 149 [facility] RDW-CV, External 12.5 [facility] Blood specimen (specimen) 05/22/2013 us Leon ALLEN-C HEMATOLOGY & PF4 ORD ERABLES Final Result [facility] * CALCIUM (05/22/2013) Calcium, External 9.0 [facility] Calculated Calcium, External [facility] Blood specimen (specimen) 05/22/2013 us Leon Georges PA-C CHEMISTRY & BLOOD GA S ORDERABLES Final Result [facility] * VITAMIN B12 (05/22/2013) Vitamin B-12, External 640 [facility] Blood specimen (specimen) 05/22/2013 us Leon Georges PA-C CHEMISTRY & BLOOD GA S ORDERABLES Final Result [facility] * THIAMIN (VITAMIN B1), WB (05/22/2013) Thiamine, External 117 [facility] Comment, External [facility] Blood specimen (specimen) 05/22/2013 us Leon Georges PA-C CHEMISTRY & BLOOD GA S ORDERABLES Final Result [facility] * VITAMIN D (25,OH) (05/22/2013) 25OH Vitamin D Tot, External 33.2 [facility] Blood specimen (specimen) 05/22/2013 us Leon Georges PA-C CHEMISTRY & BLOOD GA S ORDERABLES Final Result [facility] * PTH INTACT (05/22/2013) PTH, External 50 [facility] Blood specimen (specimen) 05/22/2013 us Leon A Indratter-Cressy PA-C CHEMISTRY & BLOOD GA S ORDERABLES Final Result [facility] * FERRITIN (05/22/2013) Ferritin, External 34 [facility] Blood specimen (specimen) 05/22/2013 us Leon A Indratter-Cressy PA-C CHEMISTRY & BLOOD GA S ORDERABLES Final Result [facility] * IRON (05/22/2013) Iron, External 74 [facility] Blood specimen (specimen) 05/22/2013 us Leon A Indratter-Cressy PA-C CHEMISTRY & BLOOD GA S ORDERABLES Final Result [facility] documented in this encounter Visit Diagnoses Diagnosis Morbid obesity ([facility]) Morbid obesity S/P partial gastrectomy Other postprocedural status Post-resection malabsorption Other and unspecified postsurgical nonabsorption documented in this encounter Care Teams Data Entry Email Processor Relationship Specialty Start Date End Date Avery Caballero MD [address] [place] [phone] PCP - General 12/20/10 documented as of this encounter
--- OUTSIDE RECORDS SUMMARY | 2024-08-22 20:52 | XMS_ITS | Encounter Summary ---
Author Organization [facility] Address [address] [place] [address] Care Team Providers Care Dental Manager Name Role Phone Avery Caballero MD Primary Care Provider [phone] Reason for Referral * (Routine/Next Available) - Closed Specialty Diagnoses / Procedures Referred By Floac t Referred To Contact Diagnoses Morbid obesity ([facility]CC-CMS) S/P partial gastrectomy Post-resection malabsorption Procedures VITAMIN D (25,OH) Leon Georges PA-C Phone: tel: fax: Referral ID Status Reason Start Date Expiration Date Visits Re quested Visits Authorized [id number] Closed 06/12/2013 1 1 * (Routine/Next Available) - Closed Specialty Diagnoses / Procedures Referred By Contac t Referred To Contact Diagnoses Morbid obesity (HCC-CMS) S/P partial gastrectomy Post-resection malabsorption Procedures THIAMIN (VITAMIN B1), WB Leon Georges PA-C Phone: tel: fax: Referral ID Status Reason Start Date Expiration Date Visits Re quested Visits Authorized [id number] Closed 06/12/2013 1 1 * (Routine/Next Available) - Closed Specialty Diagnoses / Procedures Referred By Contac t Referred To Contact Diagnoses Morbid obesity (HCC-CMS) S/P partial gastrectomy Post-resection malabsorption Procedures PTH INTACT Leon Georges PA-C Phone: tel: fax: Referral ID Status Reason Start Date Expiration Date Visits Re quested Visits Authorized [id number] Closed 06/12/2013 1 1 * (Routine/Next Available) - Closed Specialty Diagnoses / Procedures Referred By Contac t Referred To Contact Diagnoses Morbid obesity ([facility]) S/P partial gastrectomy Post-resection malabsorption Procedures IRON Leon Georges PA-C Phone: tel: fax: Referral ID Status Reason Start Date Expiration Date Visits Re quested Visits Authorized [id number] Closed 06/12/2013 1 1 * (Routine/Next Available) - Closed Specialty Diagnoses / Procedures Referred By Contac t Referred To Contact Diagnoses Morbid obesity ([facility]) S/P partial gastrectomy Post-resection malabsorption Procedures FERRITIN Leon Geroges PA-C Phone: tel: fax: Referral ID Status Reason Start Date Expiration Date Visits Re quested Visits Authorized [id number] Closed 06/12/2013 1 1 * (Routine/Next Available) - Closed Specialty Diagnoses / Procedures Referred By Contac t Referred To Contact Diagnoses Morbid obesity ([facility]) S/P partial gastrectomy Post-resection malabsorption Procedures CREATININE Leon Georges PA-C Phone: tel: fax: Referral ID Status Reason Start Date Expiration Date Visits Re quested Visits Authorized [id number] Closed 06/12/2013 1 1 * (Routine/Next Available) - Closed Specialty Diagnoses / Procedures Referred By Floac t Referred To Contact Diagnoses Morbid obesity ([facility]) S/P partial gastrectomy Post-resection malabsorption Procedures HEMAGRAM Leon Georges PA-C Phone: tel: fax: Referral ID Status Reason Start Date Expiration Date Visits Re quested Visits Authorized [id number] Closed 06/12/2013 1 1 * (Routine/Next Available) - Closed Specialty Diagnoses / Procedures Referred By Contac t Referred To Contact Diagnoses Morbid obesity ([facility]) S/P partial gastrectomy Post-resection malabsorption Procedures CALCIUM Leon Georges PA-C Phone: tel: fax: Referral ID Status Reason Start Date Expiration Date Visits Re quested Visits Authorized [id number] Closed 06/12/2013 1 1 * (Routine/Next Available) - Closed Specialty Diagnoses / Procedures Referred By Kiarra t Referred To Contact Diagnoses Morbid obesity ([facility]) S/P partial gastrectomy Post-resection malabsorption Procedures VITAMIN B12 Leon Georges PA-C Phone: tel: fax: Referral ID Status Reason Start Date Expiration Date Visits Re quested Visits Authorized [id number] Closed 06/12/2013 1 1 Reason for Visit * Reason Comments Obesity Post Op Sleeve 9 Mon Check Encounter Details Date Type Department Care Team (Late st Contact Info) Description 06/12/2013 15:45 EDT Office Visit [facility] Bariatric Surgery - [place] [address] [place] [address] Leon Georges PA-C [address] [place] [address], [address] [place] [phone] Morbid obesity ([facility]) (Primary Dx); S/P partial gastrectomy; Post-resection malabsorption [...] in this encounter Progress Notes * Leon Georges, PA - 06/12/2013 1639 EDT 06/12/2013 Hannah [...] before next visit Seen and discussed with Draw String Knotter at this visit. TIFFANY Fuentes 06/12/2013 16:39 [...] Provided: None * Dayanara You - 06/12/2013 9664 EDT 30-Day Plus Bariatric Surgery Postop Questionnaire [...] (09/02/2013) 25OH Vitamin D Tot, External 26.7 [facility] Blood specimen (specimen) 09/02/2013 us Leon Georges PA-C CHEMISTRY & BLOOD GA S ORDERABLES Final Result [facility] * THIAMIN (VITAMIN B1), WB (09/02/2013) Thiamine, External 106 [facility] Comment, External [facility] Blood specimen (specimen) 09/02/2013 us Leon A Chutter-Cressy PA-C CHEMISTRY & BLOOD GA S ORDERABLES Final Result [facility] * PTH INTACT (09/02/2013) PTH, External 45 [facility] Blood specimen (specimen) 09/02/2013 us Leon Burrelltter-Cressy PA-C CHEMISTRY & BLOOD GA S ORDERABLES Final Result [facility] * IRON (09/02/2013) Iron, External 85 [facility] Blood specimen (specimen) 09/02/2013 us Leon Burrelltter-Cressy PA-C CHEMISTRY & BLOOD GA S ORDERABLES Final Result [facility] * FERRITIN (09/02/2013) Ferritin, External 27 [facility] Blood specimen (specimen) 09/02/2013 us Leon A Chutter-Cressy PA-C CHEMISTRY & BLOOD GA S ORDERABLES Final Result [facility] * CREATININE (09/02/2013) Creatinine, External 0.7 [facility] GFR, Calculated, External [facility] Blood specimen (specimen) 09/02/2013 us Leon Mehtasy PA-C CHEMISTRY & BLOOD GA S ORDERABLES Final Result [facility] * HEMAGRAM (09/02/2013) HCT, External 42.6 [facility] MCH, External 29.5 [facility] MCV, External 87.3 [facility] MCHC, External 33.8 [facility] Hemoglobin, External 14.4 [facility] WBC, External 4.85 [facility] RBC, External 4.88 [facility] PLT, External 162 [facility] RDW-CV, External 12.8 [facility] Blood specimen (specimen) 09/02/2013 us Leon Georges PA-C HEMATOLOGY & PF4 ORD ERABLES Final Result [facility] * CALCIUM (09/02/2013) Calcium, External 9.2 [facility] Calculated Calcium, External [facility] Blood specimen (specimen) 09/02/2013 us Leon Georges PA-C CHEMISTRY & BLOOD GA S ORDERABLES Final Result [facility] * VITAMIN B12 (09/02/2013) Vitamin B-12, External 516 [facility] Blood specimen (specimen) 09/02/2013 us Leon Georges PA-C CHEMISTRY & BLOOD GA S ORDERABLES Final Result [facility] documented in this encounter Visit Diagnoses Diagnosis Morbid obesity ([facility])- Primary Morbid obesity S/P partial gastrectomy Other postprocedural status Post-resection malabsorption Other and unspecified postsurgical nonabsorption documented in this encounter Care Teams Dental Manager Relationship Specialty Start Date End Date Avery Caballero MD [address] [place] [phone] PCP - General 12/20/10 documented as of this encounter
--- OUTSIDE RECORDS SUMMARY | 2024-08-22 20:52 | XMS_ITS | Encounter Summary ---
Author Organization [facility] Address [address] [place] [address] Care Team Providers Care Hammer Repairer Name Role Phone Avery Caballero MD Primary Care Provider [phone] Encounter Details Date Type Department Care Team (Late st Contact Info) Description 09/02/2020 Lab Requisition [facility] Pathology & Laboratory Medicine - [facility] [address] [place] [address] Outr Resulting Lab, Provider Social History Tobacco [...] Unknown 09/02/2020 9:06 EST 09/03/2020 10:08 EST us Provider Outr Resulting Lab MICROBIOLOGY - GENER AL ORDERABLES Final Result [facility] [address] [place] [address] * COVID-19 TESTING (09/02/2020 9:06 EST) COVID-19 rt-PCR Result Negative Negative 09/04/2020 13:51 EST [facility] Comment: Negative results do not preclude 2019-nCoV infection and should not be used as the sole basis for treatment or other patient management decisions. Negative results must be combined with clinical observations, patient history, and epidemiological information. This test was developed and its performance characteristics determined by [facility]. It has not been cleared or approved [...] defined by the FDA Performed on the TASSo 7 Flex. Performing Lab [employer] 7 [facility] 09/04/2020 13:51 EST [facility] Swab 09/02/2020 9:06 EST 09/03/2020 10:08 EST us Provider Outr Resulting Lab MICROBIOLOGY - GENER AL ORDERABLES Final Result [facility] [address] [place] [address] documented in this encounter Visit Diagnoses Not on filedocumented in this encounter Care Teams Hammer Repairer Relationship Specialty Start Date End Date Avery Caballero MD [address] [place] [phone] PCP - General 12/20/10 documented as of this encounter
--- OUTSIDE RECORDS SUMMARY | 2024-08-22 20:52 | XMS_ITS | Encounter Summary ---
Author Organization [facility] Address [address] [place] [address] Care Team Providers Care Raftsman Name Role Phone Avery Caballero MD Primary Care Provider [phone] Reason for Referral * (Routine/Next Available) - Closed Specialty Diagnoses / Procedures Referred By Floac t Referred To Contact Diagnoses Morbid obesity ([facility]CC-CMS) S/P partial gastrectomy Post-resection malabsorption Procedures VITAMIN D (25,OH) Leon Georges PA-C Phone: tel: fax: Referral ID Status Reason Start Date Expiration Date Visits Re quested Visits Authorized [id number] Closed 03/13/2013 1 1 * (Routine/Next Available) - Closed Specialty Diagnoses / Procedures Referred By Contac t Referred To Contact Diagnoses Morbid obesity (HCC-CMS) S/P partial gastrectomy Post-resection malabsorption Procedures THIAMIN (VITAMIN B1), WB Leon Georges PA-C Phone: tel: fax: Referral ID Status Reason Start Date Expiration Date Visits Re quested Visits Authorized [id number] Closed 03/13/2013 1 1 * (Routine/Next Available) - Closed Specialty Diagnoses / Procedures Referred By Contac t Referred To Contact Diagnoses Morbid obesity (HCC-CMS) S/P partial gastrectomy Post-resection malabsorption Procedures PTH INTACT Leon Georges PA-C Phone: tel: fax: Referral ID Status Reason Start Date Expiration Date Visits Re quested Visits Authorized [id number] Closed 03/13/2013 1 1 * (Routine/Next Available) - Closed Specialty Diagnoses / Procedures Referred By Contac t Referred To Contact Diagnoses Morbid obesity ([facility]) S/P partial gastrectomy Post-resection malabsorption Procedures IRON Leon Georgse PA-C Phone: tel: fax: Referral ID Status Reason Start Date Expiration Date Visits Re quested Visits Authorized [id number] Closed 03/13/2013 1 1 * (Routine/Next Available) - Closed Specialty Diagnoses / Procedures Referred By Contac t Referred To Contact Diagnoses Morbid obesity ([facility]) S/P partial gastrectomy Post-resection malabsorption Procedures FERRITIN Leon Georges PA-C Phone: tel: fax: Referral ID Status Reason Start Date Expiration Date Visits Re quested Visits Authorized [id number] Closed 03/13/2013 1 1 * (Routine/Next Available) - Closed Specialty Diagnoses / Procedures Referred By Contac t Referred To Contact Diagnoses Morbid obesity ([facility]) S/P partial gastrectomy Post-resection malabsorption Procedures HEMAGRAM Leon Georges PA-C Phone: tel: fax: Referral ID Status Reason Start Date Expiration Date Visits Re quested Visits Authorized [id number] Closed 03/13/2013 1 1 * (Routine/Next Available) - Closed Specialty Diagnoses / Procedures Referred By Contac t Referred To Contact Diagnoses Morbid obesity ([facility]) S/P partial gastrectomy Post-resection malabsorption Procedures CREATININE Leon Georges PA-C Phone: tel: fax: Referral ID Status Reason Start Date Expiration Date Visits Re quested Visits Authorized [id number] Closed 03/13/2013 1 1 * (Routine/Next Available) - Closed Specialty Diagnoses / Procedures Referred By Contac t Referred To Contact Diagnoses Morbid obesity ([facility]) S/P partial gastrectomy Post-resection malabsorption Procedures CALCIUM Leon Georges PA-C Phone: tel: fax: Referral ID Status Reason Start Date Expiration Date Visits Re quested Visits Authorized [id number] Closed 03/13/2013 1 1 * (Routine/Next Available) - Closed Specialty Diagnoses / Procedures Referred By Kiarra t Referred To Contact Diagnoses Morbid obesity ([facility]) S/P partial gastrectomy Post-resection malabsorption Procedures VITAMIN B12 Leon Georges PA-C Phone: tel: fax: Referral ID Status Reason Start Date Expiration Date Visits Re quested Visits Authorized [id number] Closed 03/13/2013 1 1 Reason for Visit * Reason Comments Obesity Post Op Sleeve 6 Mon ths Encounter Details Date Type Department Care Team (Late st Contact Info) Description 03/13/2013 15:45 EDT Office Visit [facility] B[facility]ric Surgery - [place] [address] [place] [address] Leon Georges PA-C [address] [place] [address], [address] [place] [phone] Morbid obesity ([facility]CC-[facility]) (Primary Dx); S/P partial [...] None * Leon Georges PA - 03/13/2013 4617 EDT 03/13/2013 Hannah Ling is here in [...] before next visit Seen and discussed with Band Aid Machine Operator at this visit. TIFFANY Fuentes 03/13/2013 16:07 [...] encounter Miscellaneous Notes * Scanned Note-Null - COMMERCIAL [employer]PENTER, SCAN 2 - 03/23/2013 1602 EDT documented in this encounter Plan of Treatment Not on file documented as of this encounter Results * VITAMIN D (25,OH) (05/22/2013) 25OH Vitamin D Tot, External 33.2 [facility] Blood specimen (specimen) 05/22/2013 us Leon Burrelltter-Cressy PA-C CHEMISTRY & BLOOD GA S ORDERABLES Final Result [facility] * THIAMIN (VITAMIN B1), WB (05/22/2013) Thiamine, External 117 [facility] Comment, External [facility] Blood specimen (specimen) 05/22/2013 us Leon Azucena Saraer-Gaspersy PA-C CHEMISTRY & BLOOD GA S ORDERABLES Final Result [facility] * PTH INTACT (05/22/2013) PTH, External 50 [facility] Blood specimen (specimen) 05/22/2013 us Leon Azucena Saraer-Gaspersy PA-C CHEMISTRY & BLOOD GA S ORDERABLES Final Result [facility] * IRON (05/22/2013) Iron, External 74 [facility] Blood specimen (specimen) 05/22/2013 us Leon Azucena Debbie-Gaspersy PA-C CHEMISTRY & BLOOD GA S ORDERABLES Final Result [facility] * FERRITIN (05/22/2013) Ferritin, External 34 [facility] Blood specimen (specimen) 05/22/2013 us Leon Azucena Saraer-Cressy PA-C CHEMISTRY & BLOOD GA S ORDERABLES Final Result [facility] * HEMAGRAM (05/22/2013) HCT, External 40.4 [facility] MCH, External 29.5 [facility] MCV, External 88.8 [facility] MCHC, External 33.2 [facility] Hemoglobin, External 13.4 [facility] WBC, External 5.37 [facility] RBC, External 4.55 [facility] PLT, External 149 [facility] RDW-CV, External 12.5 [facility] Blood specimen (specimen) 05/22/2013 us Leon Georges PA-C HEMATOLOGY & PF4 ORD ERABLES Final Result [facility] * CREATININE (05/22/2013) Creatinine, External 0.7 [facility] GFR, Calculated, External >60 [facility] Blood specimen (specimen) 05/22/2013 us Leon Georges PA-C CHEMISTRY & BLOOD GA S ORDERABLES Final Result [facility] * CALCIUM (05/22/2013) Calcium, External 9.0 [facility] Calculated Calcium, External [facility] Blood specimen (specimen) 05/22/2013 us Leon Georges PA-C CHEMISTRY & BLOOD GA S ORDERABLES Final Result [facility] * VITAMIN B12 (05/22/2013) Vitamin B-12, External 640 [facility] Blood specimen (specimen) 05/22/2013 Leon Georges PA-C CHEMISTRY & BLOOD GA S ORDERABLES Final Result [facility] documented in this encounter Visit Diagnoses Diagnosis Morbid obesity (HCC-CMS)- Primary Morbid obesity S/P partial gastrectomy Other postprocedural status Post-resection malabsorption Other and unspecified postsurgical nonabsorption documented in this encounter Care Teams Raftsman Relationship Specialty Start Date End Date Avery Caballero MD [address] [place] [id number] PCP - General 12/20/10 documented as of this encounter
--- OUTSIDE RECORDS SUMMARY | 2024-08-22 20:52 | XMS_ITS | Encounter Summary ---
Author Organization [facility] Address [address] [place] [address] Care Team Providers Care Jewel Bearing Driller Name Role Phone Avery Caballero MD Primary Care Provider [phone] Reason for Referral * (Routine/Next Available) - Closed Specialty Diagnoses / Procedures Referred By Floac t Referred To Contact Diagnoses Morbid obesity (HCC-CMS) S/P partial gastrectomy Post-resection malabsorption Procedures VITAMIN D (25,[place]) Leon Georges PA-C Phone: tel: fax: Referral ID Status Reason Start Date Expiration Date Visits Re quested Visits Authorized [id number] Closed 03/06/2014 1 1 * (Routine/Next Available) - Closed Specialty Diagnoses / Procedures Referred By Contac t Referred To Contact Diagnoses Morbid obesity (HCC-CMS) S/P partial gastrectomy Post-resection malabsorption Procedures THIAMIN (VITAMIN B1), WB Leon Georges PA-C Phone: tel: fax: Referral ID Status Reason Start Date Expiration Date Visits Re quested Visits Authorized [id number] Closed 03/06/2014 1 1 * (Routine/Next Available) - Closed Specialty Diagnoses / Procedures Referred By Contac t Referred To Contact Diagnoses Morbid obesity (HCC-CMS) S/P partial gastrectomy Post-resection malabsorption Procedures PTH INTACT Leon Georges PA-C Phone: tel: fax: Referral ID Status Reason Start Date Expiration Date Visits Re quested Visits Authorized [id number] Closed 03/06/2014 1 1 * (Routine/Next Available) - Closed Specialty Diagnoses / Procedures Referred By Contac t Referred To Contact Diagnoses Morbid obesity ([facility]) S/P partial gastrectomy Post-resection malabsorption Procedures IRON Leon Georges PA-C Phone: tel: fax: Referral ID Status Reason Start Date Expiration Date Visits Re quested Visits Authorized [id number] Closed 03/06/2014 1 1 * (Routine/Next Available) - Closed Specialty Diagnoses / Procedures Referred By Contac t Referred To Contact Diagnoses Morbid obesity ([facility]) S/P partial gastrectomy Post-resection malabsorption Procedures FERRITIN Leon Georges PA-C Phone: tel: fax: Referral ID Status Reason Start Date Expiration Date Visits Re quested Visits Authorized [id number] Closed 03/06/2014 1 1 * (Routine/Next Available) - Closed Specialty Diagnoses / Procedures Referred By Contac t Referred To Contact Diagnoses Morbid obesity ([facility]) S/P partial gastrectomy Post-resection malabsorption Procedures CREATININE Leon Georges PA-C Phone: tel: fax: Referral ID Status Reason Start Date Expiration Date Visits Re quested Visits Authorized [id number] Closed 03/06/2014 1 1 * (Routine/Next Available) - Closed Specialty Diagnoses / Procedures Referred By Contac t Referred To Contact Diagnoses Morbid obesity ([facility]) S/P partial gastrectomy Post-resection malabsorption Procedures HEMAGRAM Leon Georges PA-C Phone: tel: fax: Referral ID Status Reason Start Date Expiration Date Visits Re quested Visits Authorized [id number] Closed 03/06/2014 1 1 * (Routine/Next Available) - Closed Specialty Diagnoses / Procedures Referred By Kiarra t Referred To Contact Diagnoses Morbid obesity ([facility]) S/P partial gastrectomy Post-resection malabsorption Procedures CALCIUM Leon Georges PA-C Phone: tel: fax: Referral ID Status Reason Start Date Expiration Date Visits Re quested Visits Authorized [id number] Closed 03/06/2014 1 1 * (Routine/Next Available) - Closed Specialty Diagnoses / Procedures Referred By Kiarra banuelos Referred To Contact Diagnoses Morbid obesity ([facility]) S/P partial gastrectomy Post-resection malabsorption Procedures VITAMIN B12 Leon Georges PA-C Phone: tel: fax: Referral ID Status Reason Start Date Expiration Date Visits Re quested Visits Authorized [id number] Closed 03/06/2014 1 1 Reason for Visit * Reason Comments Obesity Post Op Sleeve 1 yea r 09/20/2012 Encounter Details Date Type Department Care Team (Late st Contact Info) Description 09/17/2013 16:00 EST Office Visit [facility] Bariatric Surgery [facility] [address] [place] [address] Leon Georges PA-C [address] [place] [address], [facility], [address] [place] [address] Morbid obesity (HCC-CMS) (Primary Dx); S/P partial [...] above * Leon Georges PA - 09/17/2013 8592 EST 09/17/2013 Hannah Ling is here in [...] before next visit Seen and discussed with Line Analyst at this visit. TIFFANY Powell 09/17/2013 16:09 [...] suspected reason for admission) No Dayanara Reyez 09/17/2013 16:06 documented in this encounter Plan of Treatment Not on file documented as of this encounter Results * VITAMIN D (25,OH) (03/24/2014) 25OH Vitamin D Tot, External 35.1 [facility] Blood specimen (specimen) 03/24/2014 us Leon Lewis-Gaspersy PA-C CHEMISTRY & BLOOD GA S ORDERABLES Final Result [facility] * THIAMIN (VITAMIN B1), WB (03/24/2014) Thiamine, External 126 [facility] Comment, External [facility] Blood specimen (specimen) 03/24/2014 us Leon Ruizer-Gaspersy PA-C CHEMISTRY & BLOOD GA S ORDERABLES Final Result [facility] * PTH INTACT (03/24/2014) PTH, External 48 [facility] Blood specimen (specimen) 03/24/2014 us Leon Lewis-Gaspersy PA-C CHEMISTRY & BLOOD GA S ORDERABLES Final Result [facility] * IRON (03/24/2014) Iron, External 110 [facility] Blood specimen (specimen) 03/24/2014 us Leon Ruizer-Gaspersy PA-C CHEMISTRY & BLOOD GA S ORDERABLES Final Result [facility] * FERRITIN (03/24/2014) Ferritin, External 31 [facility] Blood specimen (specimen) 03/24/2014 us Leon Ruizer-Gaspersy PA-C CHEMISTRY & BLOOD GA S ORDERABLES Final Result [facility] * CREATININE (03/24/2014) Creatinine, External 0.7 [facility] GFR, Calculated, External [facility] Blood specimen (specimen) 03/24/2014 us Leon Georges PA-C CHEMISTRY & BLOOD GA S ORDERABLES Final Result Performing Organization Address City/[facility]/ZIP Co de Phone Number [facility] * HEMAGRAM (03/24/2014) HCT, External 40.1 [facility] MCH, External 29.7 [facility] MCV, External 87.6 [facility] MCHC, External 33.9 [facility] Hemoglobin, External 13.6 [facility] WBC, External 4.37 [facility] RBC, External 4.58 [facility] PLT, External 141 [facility] RDW-CV, External 12.4 [facility] Blood specimen (specimen) 03/24/2014 us Leon Georges PA-C HEMATOLOGY & PF4 ORD ERABLES Final Result [facility] * CALCIUM (03/24/2014) Calcium, External 8.6 [facility] Calculated Calcium, External [facility] Blood specimen (specimen) 03/24/2014 us Leon Georges PA-C CHEMISTRY & BLOOD GA S ORDERABLES Final Result [facility] * VITAMIN B12 (03/24/2014) Vitamin B-12, External 545 [facility] Blood specimen (specimen) 03/24/2014 Leon Georges PA-C CHEMISTRY & BLOOD GA S ORDERABLES Final Result [facility] documented in this encounter Visit Diagnoses Diagnosis Morbid obesity ([facility])- Primary Morbid obesity S/P partial gastrectomy Other postprocedural status Post-resection malabsorption Other and unspecified postsurgical nonabsorption documented in this encounter Care Teams Jewel Bearing Driller Relationship Specialty Start Date End Date Avery Caballero MD [address] [place] [address] PCP - General 12/20/10 documented as of this encounter
--- OUTSIDE RECORDS SUMMARY | 2024-08-22 20:52 | XMS_ITS | Encounter Summary ---
Author Organization [facility] Address [address] [place] [address] Care Team Providers Care Uniform Patrol Police Officer Name Role Phone Avery Caballero MD Primary Care Provider [phone] Reason for Visit * Reason Comments Obesity Post Op Sleeve 6 wee k Encounter Details Date Type Department Care Team (Late st Contact Info) Description 10/31/2012 16:00 EST Office Visit [facility] Bariatric Surgery [address] [phone] Bebeto Culver MD [address] [place] [phone] S/P partial gastrectomy (Primary Dx) Discharge [...] in this encounter Ordered Prescriptions Prescription Sig Dispense Quantity Refills Last Filled Start Date End Date ursodiol (ACTIGALL) 300 mg capsule Take 1 Cap by mouth 2 times daily. 60 Cap 12 10/31/2012 documented in this encounter Discharge Disposition Disposition Code Departure Means Destination Auto Discharge documented in this encounter Progress Notes * [address] [facility] RD - 10/31/2012 9766 EST Nutrition Post Op Visit: Gastric Sleeve [...] Labs actigal started Seen and discussed with [employer] Division Manager at this visit. Bebeto Culver MD 10/31/2012 16:09 * Dayanara Reyez - 10/31/2012 4746 EST 30-Day Plus Bariatric Surgery Postop Questionnaire [...] status documented in this encounter Care Teams Uniform Patrol Police Officer Relationship Specialty Start Date End Date Avery Caballero MD [address] [place] [address] PCP - General 12/20/10 documented as of this encounter
--- OUTSIDE RECORDS SUMMARY | 2024-08-22 20:52 | XMS_ITS | Encounter Summary ---
Author Organization [facility] Address [address] [place] [address] Care Team Providers Care Cloth Measurer Name Role Phone Avery Caballero MD Primary Care Provider [phone] Reason for Visit * Reason Comments Obesity Post Op Sleeve - 3 W eeks Encounter Details Date Type Department Care Team (Late st Contact Info) Description 10/10/2012 9:45 EST Office Visit [facility] Bariatric Surgery [address] [address] Bebeto Culver MD [address] [place] [address] Morbid obesity (HCC-CMS) (Primary Dx) [...] at next visit Seen and discussed with Taffy Puller at this visit. Bebeto Culver MD 10/10/2012 [...] this encounter Visit Diagnoses Diagnosis Morbid obesity ([facility])- Primary Morbid obesity documented in this encounter Care Teams Cloth Measurer Relationship Specialty Start Date End Date Avery Caballero MD [address] [place] [address] PCP - General 12/20/10 documented as of this encounter
--- OUTSIDE RECORDS SUMMARY | 2024-08-22 20:52 | XMS_ITS | Referral Summary ---
Author Organization [facility] Address [address] [place] [address] Care Team Providers Care Sales Analytics Manager Name Role Phone Avery Caballero MD Primary Care Provider [phone] Allergies Active Allergy Reactions Criticality Noted Date Comments Latex, Natural Rubber Hives,Swelling Medium 10/05/2011 Meclizine Other (See Comments) 09/18/2012 Caused a unresponsive episode requiring 2 day hospitalization Silver 09/20/2012 Causes blisters Medications fluticasone-saul meterol (ADVAIR DISKUS) 250-50 mcg/dose diskus inhaler Inhale 1 Puff as directed 2 times daily. Active fluticasone (FLONASE) 50 mcg/actuation nasal spray 1 [place] by Nasal route 2 times daily. Active montelukast (SINGULAIR) 10 mg tablet Take 10 mg by mouth at bedtime. Active ALBUTEROL INHL Inhale 1 Puff as directed as needed. Active Multivitamins with Minerals Tab Take 1 Tab by mouth daily. Active cholecalciferol , Vitamin D3, (VITAMIN D3) 2,000 unit tablet [...] 02/23/2012 Gastroesophageal reflux disease 02/23/2012 Asthma 12/12/2011 Overview (12/12/2011): advair and singulair chronically, very rare use of albuterol Morbid obesity ([facility]) 11/07/2011 Resolved Problems Problem Noted Date Diagnosed [...] Advance Directives For more information, please contact: [phone] * Full Code (Latest Code Status on File) Date Activated Date Inactivated Comments 09/20/2012 13:41 09/22/2012 13:57 * Full Code Date Activated Date Inactivated Comments 09/20/2012 6:38 09/20/2012 13:41 Care Teams Sales Analytics Manager Relationship Specialty Start Date End Date Avery Caballero MD [address] [place] [address] PCP - General 12/20/10
--- OUTSIDE RECORDS SUMMARY | 2024-08-22 20:52 | XMS_ITS | Encounter Summary ---
Author Organization [facility] Address [address] [place] [address] Care Team Providers Care College Intern Name Role Phone Avery Caballero MD Primary Care Provider [phone] Reason for Visit * Reason Onset Date Comments Other 09/19/2012 Encounter Details Date Type Department Care Team (Late st Contact Info) Description 09/19/2012 Telephone [facility] Bariatric Surgery - [address] [address] Bebeto Culver MD [address] [place] [phone] Other Social History Tobacco Use Types [...] on filedocumented in this encounter Care Teams College Intern Relationship Specialty Start Date End Date Avery Caballero MD [address] [place] [address] PCP - General 12/20/10 documented as of this encounter
--- OUTSIDE RECORDS SUMMARY | 2024-08-22 20:52 | XMS_ITS | Encounter Summary ---
Author Organization [facility] Address [address] [place] [address] Care Team Providers Care Aluminum Boat Assembly Supervisor Name Role Phone Avery Caballero MD Primary Care Provider [phone] Reason for Visit * Reason Comments Obesity 1st post-op sleeve Encounter Details Date Type Department Care Team (Late st Contact Info) Description 09/26/2012 11:15 EST Office Visit [facility] Bariatric Surgery [address] [address] Bebeto Culver MD [address] [place] [address] Morbid obesity (HCC-CMS) (Primary Dx) [...] pmd this week Seen and discussed with Jewel Grinder at this visit. Bebeto Culver MD 09/26/2012 11:26 * Sandi Larson - 09/26/2012 1113 EST 30-Day Bariatric Surgery Postop Questionnaire Wound Occurrences Y/N Date Comments Superficial Incisional SSI N Deep Incisional SSI N Organ/Space SSI N Wound Disruption N Respiratory Occurrences Pneumonia N Lungs are feeling tight Urinary Tract Occurrences Urinary Tract Infection N DATA ADMINISTRATOR Occurrences Peripheral Nerve Injury N Other Occurrences [...] encounter Visit Diagnoses Diagnosis Morbid obesity ([facility])- Primary Morbid obesity documented in this [...] documented as of this encounter Care Teams Aluminum Boat Assembly Supervisor Relationship Specialty Start Date End Date Avery Caballero MD [address] [place] [address] PCP - General 12/20/10 documented as of this encounter
--- OUTSIDE RECORDS SUMMARY | 2024-08-22 20:52 | XMS_ITS | Encounter Summary ---
Author Organization [facility] Address [address] [place] [address] Care Team Providers Care Video And Sound Recorder Name Role Phone Avery Caballero MD Primary Care Provider [phone] Encounter Details Date Type Department Care Team (Late st Contact Info) Description 04/09/2024 Lab Requisition [facility] Pathology & Laboratory Medicine - [address] [address] Outr Resulting Lab, Provider Social History Tobacco [...] Procedure Name Priority Date/Time Associated Diagnosis Comments LYME AB Routine 04/08/2024 14:30 EDT documented in this encounter Results * LYME AB (04/08/2024 14:30 EDT) Lyme Ab Negative Negative 04/10/2024 10:38 EDT [facility] Blood VENOUS BLOOD / Unknown 04/08/2024 14:30 EDT 04/09/2024 17:13 EDT us Provider Outr Resulting Lab IMMUNOLOGY AND SEROL OGY ORDERABLES Final Result [facility] [address] [place] [address] documented in this encounter Visit Diagnoses Not on filedocumented in this encounter Care Teams Video And Sound Recorder Relationship Specialty Start Date End Date Avery Caballero MD [address] [place] [address] PCP - General 12/20/10 documented as of this encounter
--- OUTSIDE RECORDS SUMMARY | 2024-08-22 20:52 | XMS_ITS | Encounter Summary ---
Author Organization [facility] Address [address] [place] [address] Care Team Providers Care Property Man Name Role Phone Avery Caballero MD Primary Care Provider [phone] Reason for Visit * Reason Comments Obesity Pre op Encounter Details Date Type Department Care Team (Late st Contact Info) Description 08/02/2012 15:45 EST Office Visit [facility] Bariatric Surgery - [address] [phone] Leon Georges, PA-C [address] [facility], [facility] [address] [place] [address] Morbid obesity (HCC-CMS) (Primary Dx) [...] Encouraged her to increase intake back to [phone] janay and resume exercise when she is able. Be prepared to reviewpre op liquid diet at next visit Plan: Diet Goals: Keep food records, Eat more slowly and Calorie goal [phone] janay Exercise Goals: Increase time to 150 min per week Weight Loss Goal: Approximately 12 lb Weight Loss Remaining to Goal: Approximately met Reviewed: Food/Activity Record Next Visit: Pre-op follow-up visit * Leon Georges PA - 08/02/2012 7242 EST 08/02/2012 SUBJECTIVE: Hannah returns to our [...] Visit Diagnoses Diagnosis Morbid obesity ([facility] Primary Morbid obesity documented in this encounter Historical Medications * This list may reflect changes made after this encounter. azithromycin (ZITHROMAX Z-THEO) 250 mg tablet Take 250 mg by mouth daily. 08/30/2012 added in this encounter Care Teams Property Man Relationship Specialty Start Date End Date Avery Caballero MD [address] [place] [address] PCP - General 12/20/10 documented as of this encounter
--- OUTSIDE RECORDS SUMMARY | 2024-08-22 20:52 | XMS_ITS | Encounter Summary ---
Author Organization [facility] Address [address] [place] [address] Care Team Providers Care Pen Ruler Operator Name Role Phone Avery Caballero MD Primary Care Provider [phone] Encounter Details Date Type Department Care Team (Latest Contact Info) Description 09/20/2012 5:36 EST - 09/22/2012 11:54 EST Hospital Encounter [facility] General Surgery Unit [address], [place] [address] Bebeto Monteiro MD [address] [place] [phone] Morbid obesity (HCC-CMS) (Primary Dx); Preop [...] Referring Prov:Avery Caballero Discharge Summary Completed: 09/22/12 Cosigned by Bebeto Monteiro MD at 09/25/2012 16:48 EST documented in this encounter Discharge Instructions [...] this encounter Medications at Time of Discharge acetaminophen (TYLENOL) 650 mg/20.3 mL solution Take 20.3 mL by mouth every 4 hours. 09/22/2012 ALBUTEROL INHL Inhale 1 Puff as directed as needed. cholecalciferol, Vitamin D3, (VITAMIN D3) 2,000 unit tablet Take 2,000 Units by mouth daily. cyanocobalamin 500 mcg tablet Take 500 mcg by mouth daily. fluticasone (FLONASE) 50 mcg/actuation nasal spray 1 Elwood by Nasal route 2 times daily. fluticasone-salmeter ol (ADVAIR DISKUS) 250-50 mcg/dose diskus [...] 500 mg by mouth 2 times daily. 3 ondansetron (ZOFRAN ODT) 4 mg disintegrating tablet Take 1 Tab by mouth every 6 hours as needed for Nausea. 12 Tab 0 09/22/2012 3 oxycodone (ROXICODONE) 5 mg/5 mL solution Take 5-10 mL by mouth every 3 hours as needed for Pain. 200 mL 0 09/22/2012 3 documented as of this encounter Ordered Prescriptions Prescription Sig Dispense Quantity Refills Last Filled Start Date End Date omeprazole (PRILOSEC) 40 mg capsule Take 1 Cap by mouth daily. 30 Cap 2 09/22/2012 acetaminophen (TYLENOL) 650 mg/20.3 mL solution Take 20.3 mL by mouth every 4 hours. 09/22/2012 oxycodone (ROXICODONE) 5 mg/5 mL solution Take 5-10 mL by mouth every 3 hours as needed for Pain. 200 mL 0 09/22/2012 3 ondansetron (ZOFRAN ODT) 4 mg disintegrating tablet Take 1 Tab by mouth every 6 hours as needed for Nausea. 12 Tab 0 09/22/2012 3 documented in this encounter Discharge Disposition Disposition [...] PRN ??? fluticasone (FLONASE) nasal spray 1 Elwood nasal - both BID ??? fluticasone-salmeterol (ADVAIR) [...] I+O: Intake/Output Summary (Last 24 hours) at 09/22/12 0734 Last data filed at 09/22/12 0456 Gross [...] oral meds Saline lock IVF and d/c MARKET ASSET PROTECTION MANAGER Ambulate/ IS Drain teaching discharge today TIFFANY [...] Q6H ??? fluticasone (FLONASE) nasal spray 1 Elwood nasal - both BID ??? fluticasone-salmeterol (ADVAIR) [...] Q2H PRN ??? HYDROmorphone 1 mg/ml (DILAUDID) MARKET ASSET PROTECTION MANAGER, 30 ml - LATEX SAFE intravenous CONTINUOUS ??? HYDROmorphone 1 mg/ml (DILAUDID) MARKET ASSET PROTECTION MANAGER, 30 ml - LATEX SAFE intravenous Q30 [...] tomorrow Amari Alonso MD 09/21/2012 7:06 Surgery Glue Maker [id number] * Joaan Smart MD - 09/20/2012 1702 EST SURGERY [...] Frequency ??? fluticasone (FLONASE) nasal spray 1 Elwood nasal - both BID ??? fluticasone-salmeterol (ADVAIR) [...] Q2H PRN ??? HYDROmorphone 1 mg/ml (DILAUDID) MARKET ASSET PROTECTION MANAGER, 30 ml - LATEX SAFE intravenous CONTINUOUS ??? HYDROmorphone 1 mg/ml (DILAUDID) MARKET ASSET PROTECTION MANAGER, 30 ml - LATEX SAFE intravenous Q30 [...] anesthesia as she has only used her MARKET ASSET PROTECTION MANAGER twice since arriving to the floor. Plan: 1) NPO 2) Continue IVF 3) Continue current pain management protocol with MARKET ASSET PROTECTION MANAGER, but avoid allowing the patient to use until she is more alert 4) FU labs for tonight 5) Upper GI series in the morning 6) Reglan/Zofran for nausea 7) Encourage ambulation Courtney Hardy 09/20/2012 17:12 ADDENDUM: Agree with plan above. Joana Smart MD 19:59 09/20/2012 #[id number] * Brigette Lopez - 09/20/2012 1239 EST 1239 Report to [facility] LYLES 1310 Report from Elliott LYLES B6 notified of pt previous oral surg and sutures. Anes stated all intact upon extubation * Haritha Lucas RN - 09/20/2012 0703 EST Small blisters noted just above Tegaderm right antecubital. Tegaderm removed; iv site covered with dry gauze and paper tape. * Heather Grullon RN - 09/18/2012 1353 EST Hannah Wong has been instructed as follows regarding medication [...] fluticasone (FLONASE) 50 mcg/actuation nasal spray 1 Elwood by Nasal route 2 times daily. ??? [...] OR. Amari Alonso MD 09/20/2012 7:23 Surgery Glue Maker [id number] Cosigned by Bebeto Monteiro MD at 09/25/2012 16:47 EST documented in this encounter Procedure Notes * SMALL ANIMAL VETERINARIAN, SCAN 2 - 09/26/2012 1326 ESTAssociated Order(s): ECG REPORT - SCANNED documented in this encounter Nursing Notes * SMALL ANIMAL VETERINARIAN, SCAN 2 - 09/26/2012 1326 EST documented in this encounter OR Notes * OR Surgeon - Bebeto Monteiro MD - 09/25/2012 1251 EST OPERATIVE REPORT SERVICE DATE: 09/20/2012 PREOPERATIVE DIAGNOSIS: Morbid obesity, BMI of 45. POSTOPERATIVE DIAGNOSIS: Morbid obesity, BMI of 45. PROCEDURE: Laparoscopic sleeve gastrectomy over a 46-Polish bougie as well as an anterior cruropexyrepair of hiatal hernia. SURGEON: Bebeto Monteiro MD JEWELRY DESIGNER: Nayeli Mills MD (There were no qualified residents to first assistant manager in the case.) INDICATIONS: Morbidly obese female [...] GE junction with a Harmonic scalpel. A 46-Polish bougie was passed transorally under direct vision into the stomach until it reached theproximal pyloric channel. The anterior aspect of the right and left crura were exposed. I put two 2-0 Ethibond sutures to close the esophageal hiatus securely around the 46-Polish bougie. The thick antrum of the stomach [...] bag, the area was irrigated again. A 19-Polish Spencer drain was placed in the subhepatic [...] AM / Bebeto Monteiro MD ss Confirmation: [id number] Dictation ID: [id number] * Anesthesia Procedure Notes - SMALL ANIMAL VETERINARIAN, SCAN - 09/20/2012 1144 EST * OR PreOp - SMALL ANIMAL VETERINARIAN, SCAN - 09/20/2012 1137 EST * Anesthesia Preprocedure Evaluation - SMALL ANIMAL VETERINARIAN, SCAN 2 - 09/20/2012 0734 EST documented in this encounter Miscellaneous Notes * Scanned Note-Null - SMALL ANIMAL VETERINARIAN, SCAN 2 - 10/01/2012 1307 EST * Scanned Note-Null - SMALL ANIMAL VETERINARIAN, SCAN 2 - 09/26/2012 1326 EST * Scanned Note-Null - SMALL ANIMAL VETERINARIAN, SCAN 2 - 09/26/2012 1326 EST * [...] ambulating around unit with family. Pain tolerable, MARKET ASSET PROTECTION MANAGER d/c'd per Dr Alonso,as pt wasn't using [...] of Care - Daniela Mccall - 09/20/2012 1736 EST Problem: PAIN Goal: Patient???s pain/discomfort is manageable/tolerable Intervention: Assess pain level Data: Pt complains of pain scale of 8, located in upper abdomen Action: Reminded pt of rib cloth knitter pump, and how to use Response: Pt response pain scale decreased to 3 in 20 minutes Daniela Mccall 09/20/2012 17:33 Cosigned by Jc Abdalla RN at 09/20/2012 17:49 EST * Anesthesia Post-Eval - Miriam Guillen MD - 09/20/2012 1327 EST Post Anesthesia Evaluation Note Date of Service: 09/20/2012 Hannah Wogn, a 47 y.o. year old female has [...] 20 (09/20/12 1315), SpO2: 100 % (09/20/12 1315),Numeric Pain Level (Scale 1-10): 0 Hannah Wong [...] hiatal hernia repair/crural pexy Surgeon: MD Abiola Decision Support Manager: MD Gene, MD April Anesth: GET Findings: [...] condition Amari Alonso MD 09/20/2012 7:24 Surgery Glue Maker [phone] * Scanned Note-Null - SMALL ANIMAL VETERINARIAN, SCAN 2 - 09/20/2012 0549 EST * Scanned Note-Null - SMALL ANIMAL VETERINARIAN, SCAN 2 - 09/20/2012 0548 EST documented [...] EST Narrative 09/26/2012 14:00 EST Procedure Note SMALL ANIMAL VETERINARIAN, SCAN 2 - 09/26/2012 13:26 EST us Scan 2 Towel Distributor PROCEDURE/MINOR SURGICAL OR DERABLES Final Result * FL UPPER GI SERIES W/O AIR [...] the findings. Amari Alonso MD IMG FLUOROSCOPY ORDERABLES Fi nal Result * MAGNESIUM (09/21/2012 6:34 EST) Magnesium 1.8 1.7 - 2.8 mg/dl [facility] Blood specimen (specimen) 09/21/2012 6:34 EST 09/21/2012 7:49 EST Amari Alonso MD CHEMISTRY & BLOOD GAS ORDERAB LES Final Result [facility] [address] [place] [address] * (ABNORMAL) BUN (09/21/2012 6:34 EST) BUN 4(L) 10 - 26 mg/dl [facility] Blood specimen (specimen) 09/21/2012 6:34 EST 09/21/2012 7:49 EST Amari Alonso MD CHEMISTRY & BLOOD GAS ORDERAB LES Final Result Performing Organization Address [facility] Phone Number [facility] [address] [place] [address] * ELECTROLYTES (09/21/2012 6:34 EST) Sodium 140 136 - 145 mEq/L [facility] Potassium 3.9 3.5 - 5.0 mEq/L [facility] Chloride 105 96 - 110 mEq/L [facility] CO2 26 24 - 32 mEq/L [facility] Blood specimen (specimen) 09/21/2012 6:34 EST 09/21/2012 7:49 EST Amari Alonso MD CHEMISTRY & BLOOD GAS ORDERAB LES Final Result Performing Organization Address [facility] Phone Number [facility] [address] [place] [address] * HEMAGRAM (09/21/2012 6:34 EST) WBC 11.63 4.0 - 12.4 K/cmm [facility] RBC 4.35 3.86 - 5.04 M/cmm [facility] Hemoglobin 12.8 11.6 - 15.2 gm/dl [facility] HCT 37.8 34.9 - 44.4 % [facility] MCV 87 81 - 98 fl [facility] MCH 29.3 26.7 - 33.3 pg [facility] MCHC 33.8 32.1 - 35.9 gm/dl [facility] PLT 166 141 - 320 K/cmm [facility] RDW-CV 13.4 11.7 - 14.6 % [facility] Blood specimen (specimen) 09/21/2012 6:34 EST 09/21/2012 7:49 EST Amari Alonso MD HEMATOLOGY & PF4 ORDERABLES F inal Result Performing Organization Address [facility]/ZIP Co de Phone Number [facility] [address] [place] [address] * MAGNESIUM (09/20/2012 19:44 EST) Magnesium 1.7 1.7 - 2.8 mg/dl [facility] Blood specimen (specimen) 09/20/2012 19:44 EST 09/20/2012 20:15 EST Amari Alonso MD CHEMISTRY & BLOOD GAS ORDERAB LES Final Result Performing Organization Address [facility] de Phone Number [facility] [address] [place] [address] * (ABNORMAL) BUN (09/20/2012 19:44 EST) Pathologist [facility] BUN 6(L) 10 - 26 mg/dl [facility] Blood specimen (specimen) 09/20/2012 19:44 EST 09/20/2012 20:15 EST Amari Alonso MD CHEMISTRY & BLOOD GAS ORDERAB LES Final Result Performing Organization Address [facility] de Phone Number [facility] [address] [place] [address] * (ABNORMAL) ELECTROLYTES (09/20/2012 19:44 EST) Pathologist [facility] Sodium 134(L) 136 - 145 mEq/L [facility] Potassium 3.9 3.5 - 5.0 mEq/L [facility] Chloride 102 96 - 110 mEq/L [facility] CO2 23(L) 24 - 32 mEq/L [facility] Blood specimen (specimen) 09/20/2012 19:44 EST 09/20/2012 20:15 EST Amari Alonso MD CHEMISTRY & BLOOD GAS ORDERAB LES Final Result Performing Organization Address [facility] Co de Phone Number [facility] [address] [place] [address] * HEMAGRAM (09/20/2012 19:44 EST) WBC 8.56 4.0 - 12.4 K/cmm [facility] RBC 4.37 3.86 - 5.04 M/cmm [facility] Hemoglobin 12.9 11.6 - 15.2 gm/dl [facility] HCT 38.0 34.9 - 44.4 % [facility] MCV 87 81 - 98 fl [facility] MCH 29.6 26.7 - 33.3 pg [facility] MCHC 34.0 32.1 - 35.9 gm/dl [facility] PLT 167 141 - 320 K/cmm [facility] RDW-CV 13.1 11.7 - 14.6 % [facility] Blood specimen (specimen) 09/20/2012 19:44 EST 09/20/2012 20:15 EST us Amari Alonso MD HEMATOLOGY & PF4 ORDERABLES F inal Result Performing Organization Address City/State/[facility] Co de Phone Number [facility] [address] [place] [address] * SURGICAL PATHOLOGY (09/20/2012 10:18 EST) Pathologist [facility] Pathology Report: SURGICAL PATHOLOGY REPORT Reports generated via electronic interface contain original data; however they are lacking the format of the original report. Caution should be taken when reading/interpreti ng unformatted reports. Name: ? HANNAH WONG S ? Accession #: ? [id number] ? : ? 1965 (Age: 47) ??F [...] obesity Gross Description: ? Received fresh labelled Brink, Hannah and partial gastrectomy is a 19.0 cm in length unoriented portion of stomach that ranges from 3.0 to 5.5 cm in diameter. ??There is a staple line along one edge of the specimen. ??The serosa is pink-schilling and smooth. ??The mucosa is schilling-red, erythematous and has usual prominent fold. ??The wall thickness ranges from 0.2 to 0.4 cm. ??Associate Professor Of Anthropology sections adjacent to the stapled margin are submitted in cassette (1) and additional random appliance service representative sections are submitted in cassette (2). (Josee Dubois)/mpl End of Report [facility] 09/20/2012 10:1 8 EST 09/20/2012 10:18 EST us Bebeto Monteiro MD PATHOLOGY ORDERABLES Final Result [facility] [address] [place] [address] * TYPE AND SCREEN (09/20/2012 6:16 EST) ABO O [facility] Rh Factor Positive [facility] Antibody Screen Negative [facility] Comment:SPECIMEN EXPIRES AT 23:59 ON 09/23/2012 Blood specimen (specimen) 09/20/2012 6:16 EST Leon Georges PA-C BLOOD BANK TESTS Fin al Result [facility] [address] [place] [address] documented in this encounter Visit Diagnoses Diagnosis Morbid obesity (HCC-CMS)- Primary Morbid obesity Morbid obesity (HCC-CMS) Morbid [...] at 0700, Routine, Pre Op Day of SurgeryIndications:Morbid obesity (HCC-CMS),Preop examination,Asthma,GERD (gastroesophageal reflux disease) Given by Other 09/20/2012 7:55 EST 2 [...] 125 mL/hr fluticasone (FLONASE) nasal spray 1 Elwood 1 Elwood, nasal - both, 2 TIMES DAILY, First dose on Sun09/20/12 at 1200, Until Discontinued, Routine Given 09/22/2012 8:07 EST 1 Elwood Given 09/21/2012 20:07 EST 1 Elwood Given 09/21/2012 9:30 EST 1 Elwood fluticasone-salmeterol (ADVAIR) 250-50 mcg/dose diskus inhaler 1 Puff 1 Puff, inhalation, 2 TIMES DAILY, First dose on Sun09/20/12 at 1200, Until Discontinued, Routine Given 09/22/2012 8:07 EST 1 Puff Given 09/21/2012 20:08 EST 1 Puff Given 09/21/2012 9:30 EST 1 Puff heparin injection 5,000 Units 5,000 Units, subcutaneous, PRE-OP ONCE, 1 dose, On Sun09/20/12 at 0700, Routine, Pre Op Day of SurgeryIndications:Morbid obesity ([facility]-CMS),Preop examination,Asthma,GERD (gastroesophageal reflux disease) Given 09/20/2012 7:08 EST 5,000 Units heparin injection 5,000 Units 5,000 Units, subcutaneous, EVERY 8 HOURS, First dose on Sun09/20/12 at 2100, Until Discontinued, Routine, On Unit Given 09/22/2012 8:07 EST 5,000 Units Given 09/21/2012 23:53 EST 5,000 Units Given 09/21/2012 15:36 EST 5,000 Units HYDROmorphone 1 mg/ml (DILAUDID) MARKET ASSET PROTECTION MANAGER, 30 ml - LATEX SAFE intravenous, CONTINUOUS, Starting on Sun09/20/12 at 1200, Until Sun09/22/12 at 0731, Intravenous, MARKET ASSET PROTECTION MANAGER, MARKET ASSET PROTECTION MANAGER Dose: 0.2 mg LOCKOUT Interval: 10 minutes ONE HOUR Dose Limit: 1.2 mg See PRN bolus orders for breakthrough pain., Routine Rate Documented 09/21/2012 7:43 EST mL/hr New Syringe/Cartridge 09/20/2012 12:49 EST mL/h r ketOROLAC (TORADOL) injection 15 mg 15 mg, intravenous, EVERY 6 HOURS, 4 doses, First dose on Sun09/21/12 at 1330, Last dose on Sun09/22/12 at 0730, Routine Given 09/22/2012 6:54 EST [...] at 1437, Routine, Pre Op Day of SurgeryIndications:Morbid obesity (HCC-CMS),Preop examination,Asthma,GERD (gastroesophageal reflux disease) New Bag 09/20/2012 6:30 EST 25 mL/hr [...] at 0000, Until Discontinued, Routine, On Unit 2353 (Given - Provider: Jerica Auguste RN) 0422 (Not Given - Provider: Jerica Auguste RN - Reason: Patient/family refused)0746 (Not Given - Provider: Rickie Goode RN - Reason: Patient/family refused) ceFAZolin (ANCEF) 2 g in sodium chloride 0.9% 50 mL IVPB (COMPLETED) 2 g, intravenous, Administer over 30 Minutes, EVERY 8 HOURS, 2 doses, First dose on Sun09/20/12 at 1600, Last dose on 09/21/12 at 0000, Routine, On Unit 1659 (Given - Provider: Gladis Hess)2345 (Given - Provider: Caitlyn Gallardo) ceFAZolin (ANCEF) syringe 2 g (COMPLETED) 2 g, intravenous, Administer over 10 Minutes, PRE-OP ONCE, 1 dose, On Sun09/20/12 at 0700, Routine, Pre Op Day of Surgery 0755 (Given by Other - Provider: Pattie M. Tee - Comment: Given by Marce Wilson MD) fluticasone (FLONASE) nasal spray 1 Elwood (CANCELED) 1 Elwood, nasal - both, 2 TIMES DAILY, First dose on Sun09/20/12 at 1200, Until Discontinued, Routine 1450 (Not Given - Provider: Ananth Engel RN - Reason: Patient/family refused - Comment: taken this a.m.)2005 (Not Given - Provider: Caitlyn Gallardo - Reason: Patient/family refused) 0930 (Given - Provider: Ananth Engel RN)2006 (Given - Provider: Maggy Almaraz RN) 0807 (Given - Provider: Rickie Goode, RN) fluticasone-salmeterol (ADVAIR) 250-50 mcg/dose diskus inhaler 1 Puff (CANCELED) 1 Puff, inhalation, 2 TIMES DAILY, First dose on Sun09/20/12 at 1200, Until Discontinued, Routine 1450 (Not Given - Provider: Ananth Engel RN - Reason: Patient/family refused - Comment: taken this a.m.)2029 (Not Given - Provider: RT Carrie - Reason: Patient/family refused) 0930 (Given - Provider: Ananth Engel RN)2007 (Given - Provider: Maggy Almaraz RN) 0807 (Given - Provider: Rickie Goode, RAFAL) heparin injection 5,000 Units (COMPLETED) 5,000 Units, [...] Engel RN)1536 (Given - Provider: Maggy Almaraz, RAFAL)2353 (Given - Provider: Jerica Auguste RN) 0807 (Given - Provider: Rickie Goode, RAFAL) ketOROLAC (TORADOL) injection 15 mg (COMPLETED) 15 mg, intravenous, EVERY 6 HOURS, 4 doses, First dose on 09/21/12 at 1330, Last dose on 09/22/12 at 0730, Routine 1318 (Given - Provider: Ananth Engel RN)1902 (Given - Provider: Maggy Almaraz, RN) 0150 (Given - Provider: Jerica Auguste, RN)0654 (Given - Provider: Jerica Auguste, RN) ketOROLAC (TORADOL) injection 30 mg (COMPLETED) 30 [...] Caitlyn Gallardo)1134 (Given - Provider: Ananth Engel, RAFAL)1743 (Given - Provider: Maggy Almaraz, RN)2353 (Given - Provider: Jerica Auguste, RAFAL) 0652 (Given - Provider: Jerica Auguste, RAFAL) ondansetron (PF) (ZOFRAN) injection 4 mg (COMPLETED) 4 mg, intravenous, NOW X1, 1 dose, On 09/21/12 at 0815, STAT 0751 (Given - Provider: Ananth Engel, RAFAL) pantoprazole (PROTONIX) injection 40 mg (COMPLETED) 40 [...] On Unit 0809 (Given - Provider: Rickie Goode, RN) Continuous Medication Order 09/20/2012 09/21/2012 09/22/2012 dextrose 5 % and 0.45 % NaCl with KCl 20 mEq/L infusion (CANCELED) 125 mL/hr, intravenous, CONTINUOUS, Starting on Sun09/20/12 at 1400, Until Sun09/22/12 at 0731, Routine, On Unit 1410 (New Bag - Provider: Ananth Engel RN)2002 (Rate Documented - Provider: Caitlyn Gallardo)2143 (New Bag - Provider: Caitlyn Gallardo) 0459 (New Bag - Provider: Caitlyn Gallardo)0743 (Rate Documented - Provider: Ananth Engel RN)1536 (Rate Documented - Provider: Maggy Almaraz, RAFAL)2008 (New Bag - Provider: Maggy Almaraz, RAFAL) 0047 (Rate Documented - Provider: Jerica Auguste, RAFAL)0401 (New Bag - Provider: Jerica Auguste RN)0746 (Completed - Provider: Rickie Goode, RN) HYDROmorphone 1 mg/ml (DILAUDID) MARKET ASSET PROTECTION MANAGER, 30 ml - LATEX SAFE (CANCELED) intravenous, CONTINUOUS, Starting on Sun09/20/12 at 1200, Until Sun09/22/12 at 0731, Intravenous, MARKET ASSET PROTECTION MANAGER, MARKET ASSET PROTECTION MANAGER Dose: 0.2 mg LOCKOUT Interval: 10 minutes ONE HOUR Dose Limit: 1.2 mg See PRN bolus orders for breakthrough pain., Routine 1249 (New Syringe/Cartridge - Provider: Elliott Benoit RN) 0743 (Rate Documented - Provider: Ananth Engel RN)1323 (Completed - Provider: Ananth Engel RN) lactated ringers (LR) infusion (CANCELED) 25 [...] for nausea)2032 (Given - Provider: Caitlyn Gallardo) 001 (Given - Provider: Caitlyn Gallardo)0456 (Given - [...] 1 09/20/2012 HYDROmorphone 1 mg/ml (DILAU DID) MARKET ASSET PROTECTION MANAGER syringe, 30 ml 1 09/20/2012 HYDROmorphone 1 mg/ml (DILAU DID) MARKET ASSET PROTECTION MANAGER, 30 ml - LATEX SAFE 1 09/20/2012 [...] 09/22/2012 documented in this encounter Care Teams Pen Ruler Operator Relationship Specialty Start Date End Date Avery Caballero MD [address] [place] [address] PCP - General 12/20/10 documented as of this encounter
--- OUTSIDE RECORDS SUMMARY | 2024-08-22 20:52 | XMS_ITS | Encounter Summary ---
Author Organization [facility] Address [address] [place] [address] Care Team Providers Care Hand Stripper Name Role Phone Avery Caballero MD Primary Care Provider [phone] Reason for Visit * Reason Comments Obesity 2nd post-op sleeve Encounter Details Date Type Department Care Team (Late st Contact Info) Description 10/03/2012 11:30 EST Office Visit [facility] Bariatric Surgery [address] [address] Bebeto Culver MD [address] [place] [address] Morbid obesity (HCC-CMS) (Primary Dx) [...] Progress Notes * Charlotte [address] - 10/03/2012 1202 EST Nutrition Post [...] this encounter. 3. Seen and discussed with In File Operator at this visit. Bebeto Culver MD 10/03/2012 [...] this encounter Visit Diagnoses Diagnosis Morbid obesity ([facility])- Primary Morbid obesity documented in this encounter Care Teams Hand Stripper Relationship Specialty Start Date End Date Avery Caballero MD [address] [place] [id number] PCP - General 12/20/10 documented as of this encounter
--- OUTSIDE RECORDS SUMMARY | 2024-08-22 20:52 | XMS_ITS | Encounter Summary ---
Author Organization [facility] Address [address] [place] [address] Care Team Providers Care Clam Dredger Name Role Phone Avery Caballero MD Primary Care Provider Reason for Visit * Reason Onset Date Comments Advice Only 09/23/2012 Encounter Details Date Type Department Care Team (Late st Contact Info) Description 09/23/2012 Telephone [facility] Bariatric Surgery - [id number] Advice Only Social History [...] Miscellaneous Notes * Telephone Encounter - Charlotte [address] RD - 09/23/2012 1018 EST BARIATRIC SURGERY [...] Plan: May try diluted protein shake on 09/26 AM Return to Clinic:09/26/[address] 09/23/2012 10:19 documented in this encounter Plan of Treatment Not on file documented as of this encounter Visit Diagnoses Not on filedocumented in this encounter Care Teams Clam Dredger Relationship Specialty Start Date End Date Avery Caballero MD [address] [place] [address] PCP - General 12/20/10 documented as of this encounter
--- OUTSIDE RECORDS SUMMARY | 2024-08-22 20:52 | XMS_ITS | Encounter Summary ---
Author Organization [facility] Address [address] [place] [address] Care Team Providers Care Clerical And Administrative Workers Name Role Phone Avery Caballero MD Primary Care Provider [phone] Encounter Details Date Type Department Care Team (Late st Contact Info) Description 02/28/2022 Lab Requisition [facility] Pathology & Laboratory Medicine - [facility] [address] [place] [address] Outr Resulting Lab, Provider Social History Tobacco [...] Factor <8.6 <12.0 IU/mL 02/28/2022 22:[address] [facility] Blood VENOUS BLOOD / Unknown 02/28/2022 12:45 EDT 02/28/2022 22:23 EDT us Provider Outr Resulting Lab CHEMISTRY & BLOOD GA S ORDERABLES Final Result Performing Organization Address [facility]/ZIP Co de Phone Number [facility] [address] [place] [address] * CCP ANTIBODIES (02/28/2022 12:45 EDT) CCP Antibodies <2.5 <5.0 U/mL 03/01/2022 9:[address] [facility] Blood VENOUS BLOOD / Unknown 02/28/2022 12:45 EDT 02/28/2022 22:23 EDT us Provider Outr Resulting Lab IMMUNOLOGY AND SEROL OGY ORDERABLES Final Result Performing Organization Address [facility] Co de Phone Number [facility] [address] [place] [address] documented in this encounter Visit Diagnoses Not on filedocumented in this encounter Care Teams Clerical And Administrative Workers Relationship Specialty Start Date End Date Avery Caballero MD [address] [place] [address] PCP - General 12/20/10 documented as of this encounter
--- OUTSIDE RECORDS SUMMARY | 2024-08-22 20:52 | XMS_ITS | Encounter Summary ---
Author Organization [facility] Address [address] [place] [address] Care Team Providers Care Test Puller Name Role Phone Avery Caballero MD Primary Care Provider [phone] Reason for Visit * Reason Comments Obesity H Encounter Details Date Type Department Care Team (Late st Contact Info) Description 09/12/2012 15:30 EST Office Visit [facility] Bariatric Surgery - [address] [id number] Bebeto Culver MD [address] [place] [phone] Morbid obesity (HCC-CMS) (Primary Dx) Social [...] explained to the patient. The patient at [facility] had an episode of syncope. She had [...] I would like her to see a paint maker for probable echo and Holter monitor to assure me that this is not an arrhythmia responsible and these are not presyncopal or syncopal events being diagnosed as vertigo. * Charlotte Lima, RD - 09/12/2012 1546 EST Medical Nutrition [...] Diagnosis Morbid obesity (HCC-CMS)- Primary Morbid obesity documented in this encounter Care Teams Test Puller Relationship Specialty Start Date End Date Avery Caballero MD [address] [place] [address] PCP - General 12/20/10 documented as of this encounter
--- OUTSIDE RECORDS SUMMARY | 2024-08-22 20:52 | XMS_ITS | Clinical Summary ---
Author Organization [facility] Address [address] [place] [address] Care Team Providers Care Junior Business Analyst Name Role Phone Avery Caballero MD Primary Care Provider [phone] Allergies Active Allergy Reactions Criticality Noted Date Comments Latex, Natural Rubber Hives,Swelling Medium 10/05/2011 Meclizine Other (See Comments) 09/18/2012 Caused a unresponsive episode requiring 2 day hospitalization Silver 09/20/2012 Causes blisters Medications fluticasone-saul meterol (ADVAIR DISKUS) 250-50 mcg/dose diskus inhaler Inhale 1 Puff as directed 2 times daily. Active fluticasone (FLONASE) 50 mcg/actuation nasal spray 1 [place] by Nasal route 2 times daily. Active [...] reflux disease 02/23/2012 Asthma 12/12/2011 Overview (12/12/2011): meme and morgan chronically, very rare use of albuterol Morbid obesity ([facility]) 11/07/2011 Resolved Problems Problem Noted Date [...] Screen 1965 Lung Function Test (Spirometry) 1965 COVID-19 Vaccine (2023- season) 2024 RSV Immunization ( o r 60+ Years) (1 - 1-dose 75+ series) 2038 Advance Directives For more information, please contact: [phone] * Full Code (Latest Code Status on File) Date Activated Date Inactivated Comments 09/20/2012 13:41 09/22/2012 13:57 * Full Code Date Activated Date Inactivated Comments 09/20/2012 6:38 09/20/2012 13:41 Care Teams Junior Business Analyst Relationship Specialty Start Date End Date Avery Caballero MD [address] [place] [address] PCP - General 12/20/10
--- OUTSIDE RECORDS SUMMARY | 2024-08-22 20:52 | XMS_ITS | Encounter Summary ---
Author Organization [facility] Address [address] [place] [address] Care Team Providers Care Protective Officer Name Role Phone Avery Caballero MD Primary Care Provider Reason for Visit * Reason Comments Obesity Pre op Encounter Details Date Type Department Care Team (Late st Contact Info) Description 02/23/2012 15:30 EDT Office Visit [facility] Bariatric Surgery [address] [id number] Leon Georges PANikiaC 111 [facility] [address] [place] [address] Morbid obesity (HCC-CMS) (Primary Dx) [...] both of her classes and viewed the EMMI. Cuevasela met with our program dietitian for 30 [...] this encounter Visit Diagnoses Diagnosis Morbid obesity ([facility])- Primary Morbid obesity documented in this encounter Historical Medications * This list may reflect changes made after this encounter. cyanocobalamin 500 mcg tablet Take 500 mcg by mouth daily. pyridoxine (VITAMIN B6) 50 mg tablet Take 50 mg by mouth daily. cholecalciferol, Vitamin D3, (VITAMIN D3) 2,000 unit tablet Take 2,000 Units by mouth daily. ascorbic acid (VITAMIN C) 500 mg tablet Take 500 mg by mouth daily. 05/28/2012 added in this encounter Care Teams Protective Officer Relationship Specialty Start Date End Date Avery Caballero MD [address] [place] [address] PCP - General 12/20/10 documented as of this encounter
--- OUTSIDE RECORDS SUMMARY | 2024-08-22 20:53 | XMS_ITS | Encounter Summary ---
Author Organization [facility] Address [address] [place] [address] Care Team Providers Care Under Trimmer Name Role Phone Avery Caballero MD Primary Care Provider [phone] Reason for Visit * Reason Comments Obesity Class Encounter Details Date Type Department Care Team (Late st Contact Info) Description 12/18/2011 10:30 EDT Office Visit [facility] Bariatric Surgery [address] [phone] Andreea Rios, PhD [address] [place] [address] Unspecified adjustment reaction (Primary Dx) Social History [...] Primary documented in this encounter Care Teams Under Trimmer Relationship Specialty Start Date End Date Avery Caballero MD [address] [place] [address] PCP - General 12/20/10 documented as of this encounter
--- OUTSIDE RECORDS SUMMARY | 2024-08-22 20:53 | XMS_ITS | Encounter Summary ---
Author Organization [facility] Address [address] [place] [address] Care Team Providers Care Recreation Therapy Aides Teacher Name Role Phone Avery Caballero MD Primary Care Provider [phone] Reason for Visit * Reason Comments Obesity #2 Encounter Details Date Type Department Care Team (Late st Contact Info) Description 12/12/2011 10:30 EDT Office Visit [facility] Bariatric Surgery [address] [phone] Leon Georges, PA-C 111 [facility] [address] [place] [address] Morbid obesity (HCC-CMS) (Primary Dx) [...] enjoyment of eating. To raise calories to 1644-5584 with at least 1/2 beforedinner meal. Great exercise! Plan: Diet Goals: Keep food records, Eat more slowly and Calorie goal 3322-7293 Exercise Goals: Maintain current exercise Weight Loss Goal: Approximately 12 lb Weight Loss Remaining to Goal: Approximately met Reviewed: Food/Activity Record Next Visit: Nutrition class scheduled on 01/31/12 * Leon Georges PA - 12/12/2011 1100 EDT Avery Caballero MD [facility] [address] [place] [address] Dear Federico : Thank you for referring your patient, Hannah Ling, for evaluation and consideration of laparoscopic sleeve gastrectomy surgery. Ms. Ling met with Dr. Culver for his initial consultation on 10/05/11. She denies any changes in her medical history or medications since her previous visit. Ms. Pauls a 46 y.o. female with adult-onset obesity. [...] fluticasone (FLONASE) 50 mcg/actuation nasal spray, 1 [place] by Nasal route 2 times daily. , [...] hours perweek. Hannah met with our program stores naval for 30 minutes to review preoperative dietary recommendations. She has gained/lost almost 24 pounds since starting in our program. She has met her weight loss goal of 12 pounds. I did consult our stores naval following her visit with the patient and [...] visit in discussion of possible short and prison risks and complications of bariatric surgery as [...] Diagnoses Diagnosis Morbid obesity ([facility])- Primary Morbid obesity documented in this encounter Discontinued Medications Medication Sig Discontinue Reason Start Date End Da te pantoprazole (PROTONIX) 40 mg tablet Take 1 Tab by mouth daily. Therapy completed 10/17/2011 12/12/2011 documented as of this encounter Care Teams Recreation Therapy Aides Teacher Relationship Specialty Start Date End Date Avery Caballero MD [address] [place] [address] PCP - General 12/20/10 documented as of this encounter
--- OUTSIDE RECORDS SUMMARY | 2024-08-22 20:53 | XMS_ITS | Encounter Summary ---
Author Organization [facility] Address [address] [place] [address] Care Team Providers Care Oliver Filter Operator Name Role Phone Unavailable Primary Care Provider Unavailabl e Encounter Details Date Type Department Care Team (Late st Contact Info) Description 07/05/2007 Results Only [facility] - Maple conversion [address] [place] [address] Benji Parrish MD [address] [place] [address] Social History Tobacco Use Types Packs/Day Years Used Date Smoking Tobacco: Never Assessed Comments Unknown Sex and Gender Information Value [...] ? HANNAH WONG ? Accession #: ? [id number] : ? 1965 (Age: 42) ??F ?Collect Date: ? 07/05/2007 Location: ? [facility] ? Receive Date: ? 07/08/2007 Provider: ?BENJI PARRISH MD Copy to: ? Specimen/Source: ?ThinPrep Pap Test, Cervix/Endocervix, processed on Figment ThinPrep Imaging System, with manual evaluation Last [...] End of Report [facility] 07/05/2007 07/08/2007 us Benji Parrish MD PATHOLOGY ORDERABLES Final Resul t [facility] [address] [place] [address] documented in this encounter Visit Diagnoses Not on filedocumented in this encounter
--- OUTSIDE RECORDS SUMMARY | 2024-08-22 20:53 | XMS_ITS | Encounter Summary ---
Author Organization [facility] Address [address] [place] [address] Care Team Providers Care Machine Cleaner Name Role Phone Avery Caballero MD Primary Care Provider Encounter Details Date Type Department Care Team (Latest Contact Info) Description 10/17/2011 9:00 EST - 10/17/2011 23:59 EST Hospital Encounter [facility] Endoscopy - Main [place] [address] [place], [place] [address] Elias, [facility] Room Discharge Disposition: Home or Self Care [...] this encounter Medications at Time of Discharge ALBUTEROL INHL Inhale 1 Puff as directed as needed. fluticasone (FLONASE) 50 mcg/actuation nasal spray 1 [place] by Nasal route 2 times daily. fluticasone-salm eterol (ADVAIR DISKUS) 250-50 mcg/dose diskus inhaler Inhale [...] Code Departure Means Destination Home or Self Prison documented in this encounter Plan of Treatment Not on file documented as of this encounter Visit Diagnoses Not on filedocumented in this encounter Care Teams Machine Cleaner Relationship Specialty Start Date End Date Avery Caballero MD [address] [place] [address] PCP - General 12/20/10 documented as of this encounter
--- OUTSIDE RECORDS SUMMARY | 2024-08-22 20:53 | XMS_ITS | Encounter Summary ---
Author Organization [facility] Address [address] [place] [address] Care Team Providers Care Weight Loss Centre Manager Name Role Phone Avery Caballero MD Primary Care Provider [phone] Reason for Visit * Reason Comments Obesity Psych Eval Encounter Details Date Type Department Care Team (Late st Contact Info) Description 09/18/2011 14:00 EST Office Visit [facility] Bariatric Surgery - [address] [address] Andreea Rios, PhD [address] [place] [phone] Unspecified adjustment reaction (Primary Dx) Social History [...] Type of Service: PSYCHIATRIC DX INTERVIEW EXAM [[id number]] Length of Session: 50 minutes Primary Care [...] in the past, Pt reported trying the Knapp Diet in the past and Knapp 2. Has anything worked well? Temporary and [...] changes particularly with the support of the silo operator and other aspects of the program. Do [...] useif you have surgery? Used employee assistant front end manager program to learn new coping skill 4. 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
--- OUTSIDE RECORDS SUMMARY | 2024-08-22 20:53 | XMS_ITS | Encounter Summary ---
Author Organization [facility] Address [address] [place] [address] Care Team Providers Care Construction Project Engineer Name Role Phone Unavailable Primary Care Provider Unavailabl e Encounter Details Date Type Department Care Team (Late st Contact Info) Description 06/03/2002 Results Only [facility] - Maple conversion [address] [place] [address] Benji Parrish MD [address] [place] [address] Social History Tobacco Use Types [...] ? HANNAH WONG ? Accession #: ? [id number] : ? 1965 (Age: 37) ??F ?Collect [...] Document reviewed and electronically signed by: ? Edan Carver, ??SCT(ASCP) ? Report Date: ??06/10/2002 12:06 End of Report [facility] 06/03/2002 06/05/2002 us Benji Parrish MD PATHOLOGY ORDERABLES Final Resul t [facility] [address] [place] [address] * SURGICAL PATHOLOGY (06/03/2002 0:00 EDT) Pathology Report: SURGICAL PATHOLOGY REPORT Reports generated via electronic interface contain original data; however they are lacking the format of the original report. Caution should be taken when reading/interpreti ng unformatted reports. Name: ? HANNAH WONG S ? Accession #: ? [id number] ? : ? 1965 (Age: 37) ??F [...] [facility] 06/03/2002 06/04/2002 15: 17 EDT us Benji Parrish MD PATHOLOGY ORDERABLES Final Resul t [facility] [address] [place] [address] documented in this encounter Visit Diagnoses Not on filedocumented in this encounter
--- OUTSIDE RECORDS SUMMARY | 2024-08-22 20:53 | XMS_ITS | Encounter Summary ---
Author Organization [facility] Address [address] [place] [address] Care Team Providers Care Research Pharmacist Name Role Phone Unavailable Primary Care Provider Unavailabl e Encounter Details Date Type Department Care Team (Late st Contact Info) Description 11/13/2006 Results Only [facility] - Maple conversion [address] [place] [address] Angelica Johnson MD [address] [place] [address] [place] [address] Social History Tobacco Use Types Packs/Day Years [...] ? HANNAH WONG ? Accession #: ? [id number] ? : ? 1965 (Age: 41) ??F [...] entirely submitted in one cassette following filtration. (Maria Del Rosario Adhikari/gray End of Report [facility] 11/13/2006 11/13/2006 5:0 2 EDT us Angelica Johnson MD PATHOLOGY ORDERABLES Final Resu lt [facility] [address] [place] [address] documented in this encounter Visit Diagnoses Not on filedocumented in this encounter
--- OUTSIDE RECORDS SUMMARY | 2024-08-22 20:53 | XMS_ITS | Encounter Summary ---
Author Organization [facility] Address [address] [place] [address] Care Team Providers Care Do All Operator Name Role Phone Avery Caballero MD Primary Care Provider [phone] Encounter Details Date Type Department Care Team (Late st Contact Info) Description 10/17/2011 Results Only [facility] Bariatric Surgery - [address] [address] Louis Monteiro MD [address] [place] [phone] Social History Tobacco Use Types Packs/Day [...] Associated Diagnosis Comments SURGICAL PATHOLOGY Routine 10/17/2011 0 :00 EST documented in this encounter Results * SURGICAL PATHOLOGY (10/17/2011 0:00 EST) Pathology Report: SURGICAL PATHOLOGY REPORT Reports generated via electronic interface contain original data; however they are lacking the format of the original report. Caution should be taken when reading/interpreti ng unformatted reports. Name: ? HANNAH WONG ? Accession #: ? [id number] ? : ? 1965 (Age: 46) ??F [...] focal foveolar metaplasia. ??See comment. Comment: ? Maintenance Mechanic Helper sections of this case have been reviewed at the intradepartmental consultation conference. ??(Dr. Zarate)/ljn Document reviewed and electronically signed by: ADDIE [...] entirely submitted as (C). ??(Maria Del Rosario Triana)/kmm ?? End of Report [facility] 10/17/2011 10/17/2011 11: 07 EST us Louis Monteiro MD PATHOLOGY ORDERABLES Final Result Performing Organization Address City/State/[facility] Co de Phone Number [facility] [address] [place] [address] documented in this encounter Visit Diagnoses Not on filedocumented in this encounter Care Teams Do All Operator Relationship Specialty Start Date End Date Avery Caballero MD [address] [place] [address] PCP - General 12/20/10 documented as of this encounter
--- OUTSIDE RECORDS SUMMARY | 2024-08-22 20:53 | XMS_ITS | Encounter Summary ---
Author Organization [facility] Address [address] [place] [address] Care Team Providers Care Billboard Poster Name Role Phone Avery Caballero MD Primary Care Provider [phone] Reason for Visit * Reason Comments Obesity Pre op - F/U EGD/ESO Encounter Details Date Type Department Care Team (Late st Contact Info) Description 11/02/2011 14:45 EST Office Visit [facility] Bariatric Surgery [facility] [address] [place] [address] Bebeto Culver MD [address] [place] [address] Morbid obesity ([facility]) (Primary Dx) Discharge Disposition: Auto Discharge Social [...] Refills Last Filled Start Date End Date pantoprazole (PROTONIX) 40 mg tablet Take 1 [...] hungry, cooking meals he has found on [employer] Food logs: by hand Meal pattern: 3 Average caloric intake:<4976-2027 janay Meal composition: fairly well balanced, some [...] of fruit each day and Calorie goal 5043-2897 Exercise Goals: Maintain current exercise Weight Loss Goal: Approximately 12 lb Weight Loss Remaining to Goal: Approximately 0.6 lb Reviewed: Food/Activity Record Next Visit: Pre-op follow-up visit documented in this encounter Plan of Treatment Not on file documented as of this encounter Visit Diagnoses Diagnosis Morbid obesity ([facility])- Primary Morbid obesity documented in this encounter Care Teams Billboard Poster Relationship Specialty Start Date End Date Avery Caballero MD [address] [place] [address] PCP - General 12/20/10 documented as of this encounter
--- OUTSIDE RECORDS SUMMARY | 2024-08-22 20:53 | XMS_ITS | Encounter Summary ---
Author Organization [facility] Address [address] [place] [address] Care Team Providers Care Import Coordinator Name Role Phone Unavailable Primary Care Provider Unavailabl e Encounter Details Date Type Department Care Team (Late st Contact Info) Description 08/25/2004 Results Only [facility] - Maple conversion [address] [place] [address] Angelica Johnson MD [address] [place] [address] [place] [address] Social History Tobacco Use Types Packs/Day Years [...] ? HANNAH WONG ? Accession #: ? [id number] ? : ? 1965 (Age: 39) ??F [...] submitted in one cassette. ??(Maria Del Rosario Triana)/jakub End of Report [facility] 08/25/2004 08/29/2004 10: 45 EST us Angelica Johnson MD PATHOLOGY ORDERABLES Final Resu lt [facility] [address] [place] [address] documented in this encounter Visit Diagnoses Not on filedocumented in this encounter
--- OUTSIDE RECORDS SUMMARY | 2024-08-22 20:53 | XMS_ITS | Encounter Summary ---
Author Organization [facility] Address [address] [place] [address] Care Team Providers Care Net Ui Developer Name Role Phone Avery Caballero MD Primary Care Provider [phone] Reason for Visit * Reason Comments Obesity #1 - band/sleeve Encounter Details Date Type Department Care Team (Late st Contact Info) Description 10/05/2011 14:30 EST Office Visit [facility] Bariatric Surgery [address] [phone] Bebeto Culver MD [address] [place] [phone] GERD (gastroesophageal reflux disease) (Primary Dx) [...] to Shedule a follow-up appt with our knot borer and our nurse practitioner, Gilma. We will obtain the results of the following: UGI and EGD. Hannah Ling is an appropriate candidate for Gastric Sleeve surgery pending test results.. For the next visit she was advised to come with her family. Seen and discussed with Importer Or Exporter at this visit. Bebeto Culver MD 10/05/2011 [...] veggies Prior weight loss attempts: Weight Watchers, Sportmeets diet and [facility] Patient's diet has not changed substantially since [...] with the findings. Bebeto Culver MD IMG FLUOROSCOPY SAIGE BUTLER Final Result documented in this encounter Visit Diagnoses Diagnosis GERD (gastroesophageal reflux disease)- Primary Esophageal reflux documented in this encounter Historical Medications * This list may reflect changes made after this encounter. ALBUTEROL INHL Inhale 1 Puff as directed as needed. montelukast (SINGULAIR) 10 mg tablet Take 10 mg by mouth at bedtime. fluticasone (FLONASE) 50 mcg/actuation nasal spray 1 [place] by Nasal route 2 times daily. fluticasone-salme terol (ADVAIR DISKUS) 250-50 mcg/dose diskus inhaler Inhale 1 Puff as directed 2 times daily. added in this encounter Care Teams Net Ui Developer Relationship Specialty Start Date End Date Avery Caballero MD [address] [place] [address] PCP - General 12/20/10 documented as of this encounter
--- OUTSIDE RECORDS SUMMARY | 2024-08-22 20:53 | XMS_ITS | Encounter Summary ---
Author Organization [facility] Address [address] [place] [address] Care Team Providers Care Payroll Services Analyst Name Role Phone Avery Caballero MD Primary Care Provider [phone] Encounter Details Date Type Department Care Team (Late st Contact Info) Description 10/06/2011 Documentation Visit [facility] Bariatric Surgery [place] [address] [place] [address] Social History Tobacco Use [...] on filedocumented in this encounter Care Teams Payroll Services Analyst Relationship Specialty Start Date End Date Avery Caballero MD [address] [place] [address] PCP - General 12/20/10 documented as of this encounter
--- OUTSIDE RECORDS SUMMARY | 2024-08-22 20:53 | XMS_ITS | Encounter Summary ---
Author Organization [facility] Address [address] [place] [address] Care Team Providers Care Government Relations Analyst Name Role Phone Unavailable Primary Care Provider Unavailabl e Encounter Details Date Type Department Care Team (Late st Contact Info) Description 04/10/2000 Results Only [facility] - Maple conversion [address] [place] [address] Benji Parrish MD [address] [place] [address] Social History Tobacco Use Types [...] ? HANNAH WONG ? Accession #: ? [id number] : ? 1965 (Age: 35) ??F ?Collect [...] End of Report [facility] 04/10/2000 04/12/2000 us Benji Parrish MD PATHOLOGY ORDERABLES Final Resul t [facility] [address] [place] [address] documented in this encounter Visit Diagnoses Not on filedocumented in this encounter
--- OUTSIDE RECORDS SUMMARY | 2024-08-22 20:53 | XMS_ITS | Encounter Summary ---
Author Organization [facility] Address [address] [place] [address] Care Team Providers Care Mailer Name Role Phone Unavailable Primary Care Provider Unavailabl e Encounter Details Date Type Department Care Team (Late st Contact Info) Description 07/26/2007 Results Only [facility] - Maple conversion [address] [place] [address] Benji Parrish MD [address] [place] [address] Social History Tobacco Use Types [...] ? HANNAH WONG ? Accession #: ? [id number] ? : ? 1965 (Age: 42) ??F [...] mid uterus on both the anterior and elevator conductor halves reveals a curvilinear possible area of [...] small amount of clear yellow serous fluid. ??Research Animal Facility Supervisor sections are submitted as follows: BLOCK WALLACE [...] ?Right ovary A14 ?Right fallopian tube (Dr. Zarate)/[facility] NOTE: ??Block A6 was dictated 2x. End of Report [facility] 07/26/2007 07/29/2007 15: 29 EST us Benji Parrish MD PATHOLOGY ORDERABLES Final Resul t [facility] [address] [place] [address] documented in this encounter Visit Diagnoses Not on filedocumented in this encounter
--- OUTSIDE RECORDS SUMMARY | 2024-08-22 20:53 | XMS_ITS | Encounter Summary ---
Author Organization [facility] Address [address] [place] [address] Care Team Providers Care Insights Strategist Name Role Phone Avery Caballero MD Primary Care Provider [phone] Encounter Details Date Type Department Care Team (Latest Contact Info) Description 10/12/2011 8:22 EST - 10/12/2011 23:59 [facility] Hospital Encounter [facility] [address] [place] [address] Bebeto Culver MD [address] [place] [phone] Discharge Disposition: Home or Self Care [...] fluticasone (FLONASE) 50 mcg/actuation nasal spray 1 Pinnacle by Nasal route 2 times daily. fluticasone-salme terol (ADVAIR DISKUS) 250-50 mcg/dose diskus inhaler Inhale 1 Puff as directed 2 times daily. montelukast (SINGULAIR) 10 mg tablet Take 10 mg by mouth at bedtime. documented as of this encounter Discharge Disposition Disposition Code Departure Means Destination Home or Self Group Home documented in this encounter Plan of Treatment Not on file documented as of this encounter Visit Diagnoses Not on filedocumented in this encounter Care Teams Insights Strategist Relationship Specialty Start Date End Date Avery Caballero MD [address] [place] [id number] PCP - General 12/20/10 documented as of this encounter
--- OUTSIDE RECORDS SUMMARY | 2024-08-22 20:53 | XMS_ITS | Encounter Summary ---
Author Organization [facility] Address [address] [place] [address] Care Team Providers Care Gps Field Data Collector Name Role Phone Avery Caballero MD Primary Care Provider [phone] Encounter Details Date Type Department Care Team (Latest Contact Info) Description 10/17/2011 7:54 EST - 10/17/2011 10:39 EST Hospital Encounter [facility] Endoscopy Outpatient [address], [place] [id number] Bebeto Culver MD [address] [place] [phone] Discharge Disposition: Home or Self Care [...] fluticasone (FLONASE) 50 mcg/actuation nasal spray 1 Antimony by Nasal route 2 times daily. fluticasone-salm [...] & Physical Date: 10/17/2011 Time: 9:19 Location: [address] Planned Procedure: Gastroscopy Chief Complaint/Indications for [...] documented in this encounter Procedure Notes * Utility Driver, Scan - 10/18/2011 0801 ESTAssociated Order(s): PROCEDURE REPORTS - SCANNED documented in this encounter Miscellaneous Notes * Scanned Note-Null - Utility Driver, Scan - 10/18/2011 0844 EST * Scanned Note-Null - Utility Driver, Scan - 10/18/2011 0844 EST documented in this encounter Plan of Treatment Not on file documented as of this encounter Procedures Procedure Name Priority Date/Time Associated Diagnosis Comments PROCEDURE REPORTS - SCANNED 10/18/2011 8:01 EST documented in this encounter Results * PROCEDURE REPORTS - SCANNED (10/18/2011 8:01 EST) 10/18/2011 8:01 EST Narrative Transcriptions Utility Driver, Scan - 10/18/2011 8:01 EST us Scan Utility Driver PROCEDURE/MINOR SURGICAL ORDE RABLES Final Result documented in this encounter Visit Diagnoses Not on filedocumented in this encounter Administered Medications Inactive Administered Medications - up to 3 most recent administrations Medication Order MAR Action Action Date Dose Rate Site fentanyl citrate (PF) 50 mcg/mL injection 100-150 mcg 100-150 mcg, intravenous, ONCE PRN, 1 dose, Starting on Sun10/17/11 at 0950, Until Sun10/17/11 at 0950, Other, sedation, Routine, Intraprocedure Given 10/17/2011 9:50 EST 100 mcg midazolam (VERSED) injection 1-3 mg 1-3 mg, intravenous, ONCE PRN, 1 dose, Starting on e 10/17/11 at 0950, Until Sun10/17/11 at 0951, Sedation, Routine, Intraprocedure Given 10/17/2011 9:51 EST 2 mg sodium chloride 0.9 % (NS) infusion at 100 mL/hr, intravenous, CONTINUOUS, Starting on Sun10/17/11 at 0915, Until Sun10/17/11 at 1301, Routine New Bag 10/17/2011 8:46 EST 100 mL/hr documented in this encounter Historical Medications * This list may reflect changes made after this encounter. Multivitamins with Minerals Tab Take 1 Tab [...] 10/17/2011 documented in this encounter Care Teams Gps Field Data Collector Relationship Specialty Start Date End Date Avery Caballero MD [address] [place] [address] PCP - General 12/20/10 documented as of this encounter
--- OUTSIDE RECORDS SUMMARY | 2024-08-22 20:53 | XMS_ITS | Encounter Summary ---
Author Organization [facility] Address [address] [place] [address] Care Team Providers Care Crude Oil Driver Name Role Phone Avery Caballero MD Primary Care Provider [phone] Encounter Details Date Type Department Care Team ([facility] st Contact Info) Description 10/30/2011 Documentation Visit [facility] Bariatric Surgery [address] [id number] Jacinda Young, MANAGER OF PATIENT [address] [facility] 4 [facility] [address] [place], [place] [address] Social History Tobacco Use Types Packs/Day Years [...] on filedocumented in this encounter Care Teams Crude Oil Driver Relationship Specialty Start Date End Date Avery Caballero MD [address] [place] [address] PCP - General 12/20/10 documented as of this encounter
--- OUTSIDE RECORDS SUMMARY | 2024-08-22 20:53 | XMS_ITS | Encounter Summary ---
Author Organization [facility] Address [address] [place] [address] Care Team Providers Care Rug Dyer Helper Name Role Phone Unavailable Primary Care Provider Unavailabl e Encounter Details Date Type Department Care Team (Late st Contact Info) Description 03/27/2001 Results Only [facility] [address] [place] [address] Benji Parrish MD [address] [place] [address] Social History Tobacco Use Types [...] ? HANNAH WONG ? Accession #: ? [id number] : ? 1965 (Age: 36) ??F ?Collect [...] End of Report BLANQUITA BRAVO 03/27/2001 03/29/2001 us Benji Parrish MD PATHOLOGY ORDERABLES Final Resul t BLANQUITA BRAVO [address] [place] [address] documented in this encounter Visit Diagnoses Not on filedocumented in this encounter
== END 2024-08-22 20:36 | disposition home or self-care (01) ==
LOC: NCHCN 20:35
PROVIDERS: PCP Family Medicine; Visit Provider Family Medicine
DX: R20.3 Hyperesthesia (principal); Z98.84 Bariatric surgery status
CPT/HCPCS: 80053; 80061; 82728; 82746; 83540; 83550; 85025

== ENCOUNTER 2025-08-25 09:28 | Outpatient (REF) | payer MEDICARE, SELFPAY ==
[2025-08-25 15:33] LABS: HCT 40.3 % (36.0-46.0); HGB 12.9 g/dL (11.2-15.7); MCH 27.7 pg (27.0-33.0); MCHC 32.0 % (32.0-36.0); MCV 87 fL (80-95); MPV 11.3 fL (8.0-11.0); Platelet Count 198 10^3/uL (130-400); RBC 4.65 10^6/uL (3.93-5.22); RDW 12.6 % (11.7-14.6); RDW-SD 39.8 fL; WBC 4.59 10^3/uL (4.4-10.8)
[2025-08-25 15:46] LABS: Iron 57 ug/dL (50-170); Total Iron Binding Capacity 333 ug/dL (250-425); Transferrin Sat 17 % (15-50)
[2025-08-25 15:50] LABS: Ferritin 11 ng/mL (7-271); TSH (W/Ref FT4) 2.49 uIU/mL (0.55-4.78); Vitamin B12 1526 pg/mL (211-911)
[2025-08-25 16:03] LABS: Folate > 24.0 ng/mL (>5.38)
== END 2025-08-25 09:29 | disposition home or self-care (01) ==
LOC: NCHCN 09:28
PROVIDERS: PCP Family Medicine; Visit Provider Family Medicine
DX: Z98.84 Bariatric surgery status (principal)
CPT/HCPCS: 85027; 82607; 82728; 82746; 83540; 83550; 84443